=== PATIENT | female | born 1935 | race Caucasian/White ===

== ENCOUNTER 2017-02-12 08:32 | Inpatient (IN) | payer OTHER, MEDICARE ==
[2017-01-16 13:58] VITALS: BMI 35.0
--- NOTE | 2017-01-16 14:27 | PAT Medication Instructions ---
Service Date Jan 16, 2017. Current Home Medication List Amlodipine (Norvasc), 2.5 MG PO QPM Cholecalciferol (Vitamin D3), 1 TAB PO QAM Cyanocobalamin (Vitamin B12), 500 MCG PO QAM Famotidine (Pepcid), 20 MG PO DAILY PRN for Indigestion Losartan Potassium & Hydrochlo (Losartan Potassium/Hydroc), 1 TAB PO QAM Potassium Chloride (Micro-K Ext Rel), 10 MEQ PO QAM Probiotic Product (Trubiotics), 1 CAP PO QAM Verapamil (Verelan Pm), 300 MG PO QAM Zinc Sulfate (Zinc Sulfate), 220 MG PO QAM [Oxy-Trol Patch], 1 PATCH TOP WK Medication Instructions For Your Scheduled Surgery - Continue as directed: [Oxy-Trol Patch], 1 PATCH TOP WK - Hold the following medications the morning of surgery: Losartan Potassium & Hydrochlo (Losartan Potassium/Hydroc), 1 TAB PO QAM Cholecalciferol (Vitamin D3), 1 TAB PO QAM Cyanocobalamin (Vitamin B12), 500 MCG PO QAM Potassium Chloride (Micro-K Ext Rel), 10 MEQ PO QAM Probiotic Product (Trubiotics), 1 CAP PO QAM Zinc Sulfate (Zinc Sulfate), 220 MG PO QAM - Take the following medications the morning of surgery with a sip of water OTHERWISE NOTHING TO EAT OR DRINK AFTER MIDNIGHT: Famotidine (Pepcid), 20 MG PO DAILY PRN for Indigestion Verapamil (Verelan Pm), 300 MG PO QAM - Take the following medications as scheduled the night before surgery: Amlodipine (Norvasc), 2.5 MG PO QPM If you have any questions please call us at [phone] or [phone] or [phone]
[2017-01-16 15:16] LABS: BASO % 0.2 %; BASO ABS # 0.01 K/uL (0-0.2); COMPLETE YES; EOS % 1.5 %; HEMATOCRIT 40.9 % (37-47); IG% 0.2 %; LYMPH % 23.1 %; LYMPH ABS # 1.36 K/uL (1.2-3.4); MEAN CELL VOLUME 85.7 fL (80-100); MEAN CORPUSCULAR HEMOGLOBIN 30.2 pg (25-34); MEAN CORPUSCULAR HGB CONC 35.2 g/dl (32-36); MEAN PLATELET VOLUME 9.3 fL (7.4-10.4); PLATELET COUNT 251 K/uL (130-400); RED BLOOD COUNT 4.77 M/uL (4.2-5.4)
[2017-01-16 15:28] LABS: CALCIUM 9.8 mg/dl (8.5-10.1); CREATININE 0.7 mg/dl (0.60-1.20); POTASSIUM 4.1 mmol/L (3.5-5.1)
--- NOTE | 2017-01-16 15:29 | DIAGNOSTIC IMAGING REPORT ---
CHEST 2 VIEWS ROUTINE CLINICAL HISTORY: Preoperative chest COMPARISON STUDY: 11/01/2013 FINDINGS: The heart is mildly enlarged. There is aortic tortuosity. There is no failure. There is no focal pulmonary consolidation. There are no pleural effusions. There are postsurgical changes of a reverse right shoulder arthroplasty[ IMPRESSION: No active disease in the chest. Electronically signed by: Flaco Ann M.D. 01/16/2017 3:27 PM Dictated Date/Time: 01/16/2017 3:26 PM
[2017-01-16 15:37] LABS: URINE APPEARANCE CLEAR (CLEAR); URINE BILIRUBIN NEG (NEG); URINE COLOR YELLOW; URINE NITRITE POS (NEG); URINE SPECIFIC GRAVITY 1.014 (1.000-1.030); UROBILINOGEN NEG (NEG)
[2017-01-16 15:39] LABS: MANUAL MICROSCOPIC REQUIRED? NO; REVIEW REQ? NO
[2017-01-16 15:45] LABS: PARTIAL THROMBOPLASTIN RATIO 1.2; PROTHROMBIN TIME (PATIENT) 10.4 SECONDS (9.0-12.0)
[2017-01-17 05:53] LABS: ESTIMATED AVERAGE GLUCOSE 108 mg/dl; HA1C FLAG Normal (Normal)
--- NOTE | 2017-02-11 13:10 | HISTORY & PHYSICAL EXAMINATION ---
DATE OF ADMISSION: 02/12/2017 CHIEF COMPLAINT: Right knee pain. HISTORY OF PRESENT ILLNESS: The patient is an 81-year-old female with known osteoarthritis about her right knee. She had a successful left total knee arthroplasty approximately 1 year ago by an outside physician. She has had previous corticosteroid as well as viscosupplementation injections in the right knee. Due to ongoing pain and disability, she now desires to proceed with right total knee arthroplasty. PAST MEDICAL HISTORY: Hypertension, osteoarthritis, colon cancer, acid reflux. PAST SURGICAL HISTORY: Gallstone, cataracts bilaterally, partial colectomy, right thumb, left knee replacement as above. MEDICATIONS: Losartan/HCTZ 100/12.5 daily, verapamil ER 300 mg daily, potassium chloride ER 10 mEq daily, amlodipine besylate 2.5 mg at bedtime, TruBiotics once daily, zinc 50 mg daily, vitamin D3 1000 International Units daily, vitamin B12 500 mg daily, Oxytrol patch once weekly. ALLERGIES: No known drug allergies. SOCIAL HISTORY AND REVIEW OF SYSTEMS: Noncontributory. PHYSICAL EXAMINATION: GENERAL: A well-nourished, well-developed elderly female who appears her stated age. HEENT: Normocephalic, atraumatic, extraocular movements intact, oropharynx pink and moist. NECK: Supple without adenopathy. LUNGS: Clear to auscultation bilaterally. HEART: Regular rate and rhythm. ABDOMEN: Soft, nontender, nondistended. EXTREMITIES: Upper extremities within normal limits. The right knee has a varus alignment. Her range of motion is from 0-125 degrees. X-RAYS: X-rays were reviewed. She has a varus aligned knee. She has [id number] arthritis of the medial compartment with complete loss of the joint space. The left knee demonstrates a well-fixed, well-aligned total knee. ASSESSMENT: Right knee degenerative joint disease. PLAN: Risks versus benefits were discussed. Consent was obtained. The patient's primary care physician is Shine Selby PA-C, from [facility] in [place], [place]. Her chute builder is Dr. Salcedo from [facility]. We will proceed with right total knee arthroplasty upon preoperative workup and medical clearance.
[~2017-02-12] VITALS: Ht 154.9 cm; Wt 82.9 kg
[2017-02-12] VITALS (8 sets, daily range): BP systolic 102–162; BP diastolic 65–91; PULSE 62–81; TEMP 36.4–36.8; O2SAT 93–100; Ht 154.9 cm; Wt 82.9 kg
[~2017-02-12 08:32] MED LIST: ACETAMINOPHEN 500 MG TAB PO SCH; AMLO2.5T PO; BUPIVACAINE 0.25% 30 ML VIAL ONE; BUPIVACAINE 0.5 % 5 MG/1 ML PF 10ML VIAL ONE; CEFAZOLIN 2000 MG/60 ML D5W 60 ML IV SCH; CHOL1000 PO; CYAN100020 PO; CeleBREX 200 MG CAP PO SCH; DEXAMETHASONE 4 MG TAB PO SCH; FAMO20TA11 PO; FAMOTIDINE 20 MG TAB PO SCH; GABAPENTIN 300 MG CAP PO SCH; LACTATED RINGER'S 1000ML 1,000 ML IV SCH; LACTATED RINGER'S 1000ML 500 ML IV ONE; LACTATED RINGER'S 1000ML IV SCH; LOSA50TA36 PO; METOCLOPRAMIDE HCL 10 MG TAB PO SCH; OXYBUTYNIN TOP; POTA10CA28 PO; PROB1CAP27 PO; ROPIVACAINE 5MG/ML 30 ML 150 MG, BUPIVACAINE/EPINEPHR 0.5% MPF 30 ML, KETOROLAC TROMETH... INFIL SCH; VERA1CAP7 PO; ZINC1CAP PO
[2017-02-12] MEDS ORDERED: MIDAZOLAM HCL 1 MG/ML 2ML VIAL ONE (09:17)
[2017-02-12] MEDS ORDERED: FENTANYL CITRATE INJ 50 MCG/1 ML 2 ML VIAL ONE (09:17)
--- NOTE | 2017-02-12 09:23 | History & Physical Bridge Note ---
H&P Re-Evaluation Bridge Note: I have examined the patient, reviewed the History & Physical and in the interval since the performance of the History & Physical I have noted the following changes of clinical significance: No changes noted
[2017-02-12] MEDS: TRANEXAMIC ACID INJ 1,000 MG in SODIUM CHLORIDE 0.9% 100ML 100 ML IV SCH ×2 (09:55→14:10)
--- NOTE | 2017-02-12 10:03 | OPERATIVE REPORT ---
DATE OF OPERATION: 02/12/2017 PREOPERATIVE DIAGNOSIS: Bilateral knee arthritis. POSTOPERATIVE DIAGNOSIS: Bilateral knee arthritis. PROCEDURES PERFORMED: Left knee injection and right total knee arthroplasty with femoral size 4, tibial size 3, tibial insert 11, and patella size 32. SURGEON: Dr. Pascual. DIRECTOR EXPERIMENTAL MEDICINE: Nahun Mulligan PA-C ANESTHESIA: Spinal. COMPLICATIONS: None. OPERATION AND FINDINGS: Following induction of adequate spinal anesthesia, the patient's left leg was prepped with Betadine prep and solution and was injected intraarticularly with 3 mL of Depo-Medrol and 3 mL of Marcaine. Following induction of spinal anesthesia, the patient's right leg was prepped and draped in the usual sterile manner. Limb was exsanguinated with an Esmarch bandage and tourniquet was inflated to 350 mmHg. A longitudinal incision was made anteriorly. Subcutaneous tissue was sharply dissected. Electrocautery was used for hemostasis. Prepatellar bursa was incised and median parapatellar incision was performed. Patella was everted and the knee was flexed. Fat pad was removed to aid in visualization and the anterior and posterior cruciate ligaments were removed. The medial face of the tibia was cleared of soft tissue first with a Bovie and a Man elevator. This tissue was retracted posteriorly using a blunt Hohmann. A Wilks retractor was used to expose the synovium above on the anterior aspect of the femur and this was removed down to bone. The PSI guide was placed on the distal femur and two pins were placed anteriorly and kept in position and two additional pins were placed distally and removed. The distal femoral cutting block was placed in position and the distal femoral cut was used in the +0 setting. Next, the cutting block was removed and the spinal block was placed in the distal end of the femur. Care was taken to ensure appropriate external rotation and feeler gauge was used to ensure no notching would occur. The femoral block was centered on the distal femur and in the medial and lateral direction and was fixed using two bone screws. The gold pins were then removed. The oscillating saw was used to create the bone cuts and the distal femoral cutting block was removed and the reciprocating saw was used to further trim the femoral cuts as well as a deep in the area for the trochlear groove. Next, posterior condyle remnants were removed. Following this, a meniscal clamp and knife were utilized to remove the anterior portion of both medial and lateral meniscus. The proximal tibia PSI guide was placed into position and the proximal tibial cutting guide was screwed into position. The extra medullary alignment guide was utilized to ensure appropriate alignment. The proximal tibia was cut and the proximal tibial cutting block was removed and this bone fragment was removed. The appropriate guide was used to perform the notch cut on the distal femur and a lamina milk sampler and a cochlear knife were utilized to finish both medial and lateral meniscectomies to remove any remnants of the posterior or anterior cruciate ligaments. Following this, the distal femoral component was impacted into position and blunt Anirudh was used to sublux the tibia anteriorly. The proximal tibia was sized and a 3 tibial tray was chosen as the size to be used. This was put into position and appropriate external rotation and a double check with extramedullary alignment guide was performed. The canal for the tibial stem was prepared first with a 17 mm drill and then the punch and a mallet and the trial tibial poly was placed. A 11 was chosen the size to be used. It was brought to extension and the patella was prepared with the patellar reamer. A 32 component was chosen the size to be used. The trial component was placed and knee was taken through a full range of motion and there was found to be no lateral subluxation of the tibia. No lateral release was required. The trials were all removed. The final components were obtained and assembled. Cement was mixed. The knee was thoroughly irrigated and the ortho mix was injected about the knee joint. The final components were cemented into position. After thoroughly suctioning and drying the bone ends, all excess cement was removed. The knee was held in extension while the cement hardened. The wound was irrigated and closed over a Hemovac drain. #1 Vicryl was used to close the extensor mechanism. Subcutaneous tissues closed using 0 Dexon. Skin was closed with iesha. Sterile dressing of Adaptic, 4 x 4's, sterile Webril, and Star was applied. The patient tolerated the procedure well. Due to the complex nature of the procedure, the entire surgery was performed with the operational assistance of Nahun Mulligan PA-C. The tmd teacher assistant, under direct supervision, was involved in the actual performance of all aspects of the surgical procedure including hemostasis, tissue retraction and incision, instrument management, patient positioning, and wound closure. I attest to the content of the Intraoperative Record and any orders documented therein. Any exceptio ns are noted below.
[2017-02-12] MEDS ORDERED: ORTHO JOINT ANESTHETIC ONE (10:07)
[2017-02-12] MEDS ORDERED: BACITRACIN 50000 UNIT VIAL ONE (10:08)
[2017-02-12] MEDS ORDERED: POVIDONE-IODINE OP SOLN 30 ML BTL ONE (10:08)
[2017-02-12] MEDS ORDERED: KETOROLAC TROMETHAMINE 30 MG/ML VIAL IV. PRN (10:45)
[2017-02-12] MEDS ORDERED: EpHEDrine SULFATE INJ 50 MG/ML AMP IV PRN (10:45)
[2017-02-12] MEDS ORDERED: ATROPINE SULFATE 0.1 MG/ML 5ML SYR IV PRN (10:45)
[2017-02-12] MEDS ORDERED: PHENYLEPHRINE 100MCG/ML 5ML SYR IV PRN (10:45)
[2017-02-12] MEDS ORDERED: ONDANSETRON INJ 2 MG/ML 2 ML VIAL IV PRN ×2 (10:45→12:30)
[2017-02-12] MEDS ORDERED: HYDROmorphone INJ 2 MG/ML SYR/VIAL IV PRN (10:45)
[2017-02-12] MEDS ORDERED: PROPOFOL IV EMULSION 10 MG/ML 20 ML VIAL IV ONE (11:52)
[2017-02-12] MEDS ORDERED: LIDOCAINE HCL 2% 2 ML VIAL (20MG/ML) ONE (11:52)
--- NOTE | 2017-02-12 11:54 | [facility] Post Operative Brief Note ---
Immediate Operative Summary Operative Date February 12, 2017. Pre-Operative Diagnosis DEGENERATIVE JOINT DISEASE Post-Operative Diagnosis SAME PREOP Procedure(s) Performed RIGHT TOTAL KNEE ARTHROPLASTY Surgeon DR. Irena FUNES Contract Negotiator Surgeon(s) Salvatore LUZ PAC Estimated Blood Loss 10cc Findings severe OA Specimens RIGHT KNEE BONE AND TISSUE Disposition Recovery Room / PACU
[2017-02-12] MEDS ORDERED: MoRPHine SULFATE 2 MG/ML CARP IV PRN (12:30)
[2017-02-12] MEDS ORDERED: ALUMINUM/MAGNESIUM/SIMETH (MAALOX MAX) 30 ML UDC PO PRN (12:30)
[2017-02-12] MEDS ORDERED: MAGNESIUM HYDROXIDE SUSP 30 ML UDC PO PRN (12:30)
[2017-02-12] MEDS ORDERED: ZOLPIDEM TARTRATE 5 MG TAB PO PRN (12:30)
[2017-02-12] MEDS ORDERED: METOCLOPRAMIDE HCL INJ 5 MG/ML 2 ML VIAL IV PRN (12:30)
--- NOTE | 2017-02-12 12:33 | OPERATIVE REPORT ---
DATE OF OPERATION: 02/12/2017 PREOPERATIVE DIAGNOSIS: Osteoarthritis right knee. POSTOPERATIVE DIAGNOSIS: Osteoarthritis right knee. PROCEDURE: Right total knee arthroplasty with femoral size 3, tibia size 3, tibial poly 9 and patella size 33. SURGEON: Dr. Pascual. TRIM DIE MAKER: Nahun Mulligan PA-C ANESTHESIA: Spinal. COMPLICATIONS: None. OPERATION AND FINDINGS: Following induction of spinal anesthesia, the patient's right leg was prepped and draped in the usual sterile manner. Limb was exsanguinated with an Esmarch bandage and tourniquet was inflated to 350 mmHg. A longitudinal incision was made anteriorly. Subcutaneous tissue was sharply dissected. Electrocautery was used for hemostasis. Prepatellar bursa was incised and median parapatellar incision was performed. Patella was everted and the knee was flexed. Fat pad was removed to aid in visualization and the anterior and posterior cruciate ligaments were removed. The medial face of the tibia was cleared of soft tissue first with a Bovie and a Man elevator. This tissue was retracted posteriorly using a blunt Hohmann. A Wilks retractor was used to expose the synovium above on the anterior aspect of the femur and this was removed down to bone. The PSI guide was placed on the distal femur and two pins were placed anteriorly and kept in position and two additional pins were placed distally and removed. The distal femoral cutting block was placed in position and the distal femoral cut was used in the +0 setting. Next, the cutting block was removed and the femur 3 block was placed in the distal end of the femur. Care was taken to ensure appropriate external rotation and feeler gauge was used to ensure no notching would occur. The femoral block was centered on the distal femur and in the medial and lateral direction and was fixed using two bone screws. The gold pins were then removed. The oscillating saw was used to create the bone cuts and the distal femoral cutting block was removed and the reciprocating saw was used to further trim the femoral cuts as well as a deep in the area for the trochlear groove. Next, posterior condyle remnants were removed. Following this, a meniscal clamp and knife were utilized to remove the anterior portion of both medial and lateral meniscus. The proximal tibia PSI guide was placed into position and the proximal tibial cutting guide was screwed into position. The extra medullary alignment guide was utilized to ensure appropriate alignment. The proximal tibia was cut and the proximal tibial cutting block was removed and this bone fragment was removed. The appropriate guide was used to perform the notch cut on the distal femur and a lamina athletic field custodian and a cochlear knife were utilized to finish both medial and lateral meniscectomies to remove any remnants of the posterior or anterior cruciate ligaments. Following this, the distal femoral component was impacted into position and blunt Anirudh was used to sublux the tibia anteriorly. The proximal tibia was sized and a 3 tibial tray was chosen as the size to be used. This was put into position and appropriate external rotation and a double check with extramedullary alignment guide was performed. The canal for the tibial stem was prepared first with a 17 mm drill and then the punch and a mallet and the trial tibial poly was placed. A 9 was chosen the size to be used. It was brought to extension and the patella was prepared with the patellar reamer. A 33 component was chosen the size to be used. The trial component was placed and knee was taken through a full range of motion and there was found to be no lateral subluxation of the tibia. No lateral release was required. The trials were all removed. The final components were obtained and assembled. Cement was mixed. The knee was thoroughly irrigated and the ortho mix was injected about the knee joint. The final components were cemented into position. After thoroughly suctioning and drying the bone ends, all excess cement was removed. The knee was held in extension while the cement hardened. The wound was irrigated and closed over a Hemovac drain. #1 Vicryl was used to close the extensor mechanism. Subcutaneous tissues closed using 0 Dexon. Skin was closed with iesha. Sterile dressing of Adaptic, 4 x 4's, sterile Webril, and Star was applied. The patient tolerated the procedure well. Due to the complex nature of the procedure, the entire surgery was performed with the operational assistance of Nahun Mulligan PA-C. The parts room assistant, under direct supervision, was involved in the actual performance of all aspects of the surgical procedure including hemostasis, tissue retraction and incision, instrument management, patient positioning, and wound closure. I attest to the content of the Intraoperative Record and any orders documented therein. Any exceptio ns are noted below.
--- NOTE | 2017-02-12 13:38 | DIAGNOSTIC IMAGING REPORT ---
RIGHT KNEE 1 OR 2 VIEWS ROUTINE CLINICAL HISTORY: Right knee osteoarthritis. COMPARISON: None FINDINGS: Alignment of the total right knee arthroplasty is anatomic. There is no fracture or unexpected opaque foreign body. Drains and skin iesha are present. IMPRESSION: Expected findings following total right knee arthroplasty. Electronically signed by: Gene Dooley M.D. 02/12/2017 1:37 PM Dictated Date/Time: 02/12/2017 1:37 PM
--- NOTE | 2017-02-12 13:44 | Anesthesiology Progress Note ---
Anesthesia Post Op Note Date & Time February 12, 2017 at 13:44 Vital Signs Pain Intensity: 0 Vital Signs Past 12 Hours Date Time Temp Pulse Resp B/P Pulse Ox O2 Delivery O2 Flow Rate FiO2 02/12/17 13:10 36.4 66 20 108/75 96 Nasal Cannula 2 02/12/17 13:00 65 20 125/68 100 Nasal Cannula 2 02/12/17 12:50 64 20 126/71 100 Nasal Cannula 2 02/12/17 12:40 64 20 119/70 100 Nasal Cannula 4 02/12/17 12:30 71 20 124/65 100 Mask 10 02/12/17 12:21 36.3 64 20 126/67 97 Mask 10 02/12/17 09:10 36.4 79 18 140/91 97 Room Air Notes Mental Status: alert / awake / arousable, participated in evaluation Pt Amnestic to Procedure: Yes Nausea / Vomiting: adequately controlled Pain: adequately controlled Airway Patency, RR, SpO2: stable & adequate BP & HR: stable & adequate Hydration State: stable & adequate Anesthetic Complications: no major complications apparent
--- NOTE | 2017-02-12 14:35 | Medical Consult ---
Consultation Date of Consultation: February 12, 2017. Attending Physician: Adeel Pascual M.D. Reason for Consultation: Medical management History of Present Illness 81 y/o female, with PMHx of HTN, osteoarthritis, colon cancer, and GERD, s/p Right total knee arthroplasty by Dr. Pascual on 02/13. Patient states she is currently feeling well. Her pain is well controlled. No BM/flatus postop. She is starting to feel hungry. Patient denies any fever, chills, sweats, lightheadedness, dizziness, vision changes, CP, palpitations, edema, SOB, wheezing, cough, abdominal pain, nausea, vomiting, diarrhea, urinary symptoms, melena, numbness/tingling, weakness, muscle/joint pain, anxiety/depression, active bleeding, or new skin discoloration/changes. Past Medical/Surgical History PAST MEDICAL HISTORY: 1. Hypertension 2. Osteoarthritis 3. Colon cancer 4. GERD PAST SURGICAL HISTORY: 1. Gallstone 2. Cataracts 3. Bilaterally 4. Partial colectomy 5. Right thumb Social History Smoking Status: Never Smoker Alcohol Use: none Marital Status: Housing Status: lives with family Allergies Coded Allergies: No Known Allergies (Unverified , 02/12/17) Home Medications Reported Home Medications Medications Dose Route/Sig Max Daily Dose Days Date Category Dose Instructions Pepcid (Famotidine) 20 Mg Tab 20 Mg PO DAILY PRN 01/16/17 Reported [Oxy-Trol Patch] 1 Patch TOP WK 01/16/17 Reported Vitamin B12 (Cyanocobalamin) 1,000 Mcg Tab 500 Mcg PO QAM 01/16/17 Reported Vitamin D3 (Cholecalciferol) 1,000 Unit Tab 1 Tab PO QAM 90 01/16/17 Reported Zinc Sulfate 220 Mg Cap 220 Mg PO QAM 01/16/17 Reported Trubiotics (Probiotic Product) 1 Cap Cap 1 Cap PO QAM 01/16/17 Reported Norvasc (Amlodipine Besylate) 2.5 Mg Tab 2.5 Mg PO QPM 01/16/17 Reported Micro-K Ext Rel (Potassium Chloride) 10 Meq Capcr 10 Meq PO QAM 01/16/17 Reported Verelan Pm (Verapamil HCl) 300 Mg Ercap 300 Mg PO QAM 01/16/17 Reported Losartan Potassium/Hydroc (Losartan Potassium & Hydrochlo) 1 Tab Tab 1 Tab PO QAM 90 01/16/17 Reported DOSAGE 100/12.5MG Current Inpatient Medications Current Inpatient Medications Medications (Trade) Dose Ordered Sig/Gabriel Route Start Time Stop Time Status Last Admin Dose Admin Lactated Ringer's 1,000 ml @ 60 mls/hr [id number] IV 02/12/17 06:00 02/12/17 22:39 Cefazolin Sodium (Ancef 2000mg/60 ml D5W) 60 ml @ 100 mls/hr PREOP IV 02/12/17 06:00 02/12/17 18:00 02/12/17 10:29 100 MLS/HR Acetaminophen (Tylenol Tab) 1,000 mg PREOP PO 02/12/17 06:00 02/12/17 18:00 02/12/17 09:39 1,000 MG Celecoxib (CeleBREX CAP) 200 mg PREOP PO 02/12/17 06:00 02/12/17 18:00 02/12/17 09:38 200 MG Dexamethasone (Decadron Tab) 8 mg PREOP PO 02/12/17 06:00 02/12/17 18:00 02/12/17 09:37 8 MG Famotidine (Pepcid Tab) 20 mg PREOP PO 02/12/17 06:00 02/12/17 18:00 Gabapentin (Neurontin Cap) 300 mg PREOP PO 02/12/17 06:00 02/12/17 18:00 02/12/17 09:38 300 MG Metoclopramide HCl 10 mg 10 mg PREOP PO 02/12/17 06:00 02/12/17 18:00 02/12/17 09:38 10 MG Tranexamic Acid 1000 mg/Sodium Chloride 110 ml @ 660 mls/hr TODAY@06,0630 IV 02/12/17 06:00 02/12/17 18:00 02/12/17 09:55 660 MLS/HR Lactated Ringer's (Lr 1000ml) 1,000 ml @ 15 mls/hr Q24H IV 02/12/17 06:00 02/13/17 05:59 02/12/17 09:50 15 MLS/HR Ondansetron HCl (Zofran Inj) 4 mg ONE PRN IV 02/12/17 10:45 02/12/17 15:45 Atropine Sulfate (Atropine Sulfate 0.1MG/Ml Inj) 0.5 mg Q1M PRN IV 02/12/17 10:45 02/12/17 15:45 Ephedrine Sulfate (EpHEDrine SULFATE INJ) 5 mg Q5M PRN IV 02/12/17 10:45 02/12/17 15:45 Ketorolac Tromethamine (Toradol Inj) 15 mg ONE PRN IV. 02/12/17 10:45 02/12/17 15:45 Hydromorphone HCl (Dilaudid Inj) 0.25 mg Q5M PRN IV 02/12/17 10:45 02/12/17 15:45 Phenylephrine HCl 100 mcg 100 mcg Q5M PRN IV 02/12/17 10:45 02/12/17 15:45 Potassium Chloride/Dextrose/ Sod Cl 1,000 ml @ 100 mls/hr Q10H IV 02/12/17 12:22 02/13/17 12:21 UNV Cefazolin Sodium/ Dextrose (Ancef Iv/D5 50ml) 60 ml @ 100 mls/hr Q8H IV 02/12/17 18:00 02/13/17 02:35 UNV Ketorolac Tromethamine (Toradol Inj) 15 mg Q6H IV. 02/12/17 14:00 02/13/17 13:59 UNV Celecoxib (CeleBREX CAP) 200 mg BID PO 02/13/17 21:00 03/15/17 20:59 UNV Oxycodone HCl (Roxicodone Immediate Rel Tab) 1 TABLET FOR PAIN RATING... Q4H PRN PO 02/12/17 12:30 02/26/17 12:29 Oxycodone HCl (Oxycontin Tab) 10 mg Q12 PO 02/12/17 21:00 02/26/17 20:59 Morphine Sulfate (MoRPHine SULFATE INJ) For pain rating 1-3 give 2... Q2HWA PRN IV 02/12/17 12:30 02/26/17 12:29 UNV Acetaminophen (Tylenol Tab) 1,000 mg Q8H PO 02/12/17 14:00 03/14/17 13:59 UNV Magnesium Hydroxide (Milk Of Magnesia Susp) 30 ml Q6H PRN PO 02/12/17 12:30 03/14/17 12:29 Docusate Sodium (coLACE CAP) 100 mg BID PO 02/12/17 21:00 03/14/17 20:59 UNV Diphenhydramine HCl (Benadryl Cap) 25 mg Q8H PRN PO 02/12/17 12:30 03/14/17 12:29 Al Hydrox/Mg Hydrox/Simethicone (Maalox Max Susp) 15 ml Q4H PRN PO 02/12/17 12:30 03/14/17 12:29 Zolpidem Tartrate (Ambien Tab) 5 mg HSZ PRN PO 02/12/17 12:30 03/14/17 12:29 Multivitamins (Multivitamin Tab) 1 tab QAM PO 02/13/17 09:00 03/15/17 08:59 UNV Ondansetron HCl (Zofran Inj) 4 mg Q6H PRN IV 02/12/17 12:30 03/14/17 12:29 Metoclopramide HCl (Reglan Inj) 10 mg Q6H PRN IV 02/12/17 12:30 03/14/17 12:29 Ferrous Gluconate (Ferrous Gluconate Tab) 324 mg TIDM PO 02/12/17 17:45 03/14/17 17:59 UNV Pantoprazole Sodium 40 mg 40 mg QAM PO 02/13/17 09:00 03/15/17 08:59 UNV Dexamethasone Sodium Phosphate/ Syringe (Decadron Inj/ Syringe) 2.5 ml @ 1 mls/min TODAY@0730 IV 02/13/17 07:30 02/13/17 09:00 UNV Aspirin (Ecotrin Tab) 81 mg BID PO 02/12/17 21:00 03/14/17 20:59 UNV Amlodipine Besylate (Norvasc Tab) 2.5 mg QPM PO 02/12/17 21:00 03/14/17 20:59 UNV HCTZ/Losartan Potassium (Hyzaar 50-12.5 Tab) 1 tab QAM PO 02/13/17 09:00 03/15/17 08:59 UNV Zinc Sulfate (Zinc Sulfate Cap) 220 mg QAM PO 02/13/17 09:00 03/15/17 08:59 UNV Cyanocobalamin (Vitamin B-12 Tab) 500 mcg QAM PO 02/13/17 09:00 03/15/17 08:59 UNV Miscellaneous Information (Order Awaiting Action) 1 ea QS N/A 02/12/17 16:00 03/14/17 15:59 Physical Exam Date Time Temp Pulse Resp B/P Pulse Ox O2 Delivery O2 Flow Rate FiO2 02/12/17 13:30 99 Nasal Cannula 2.0 02/12/17 13:30 36.8 65 14 127/74 99 Nasal Cannula 2.0 02/12/17 13:30 99 Nasal Cannula 2.0 02/12/17 13:10 36.4 66 20 108/75 96 Nasal Cannula 2 02/12/17 13:00 65 20 125/68 100 Nasal Cannula 2 02/12/17 12:50 64 20 126/71 100 Nasal Cannula 2 02/12/17 12:40 64 20 119/70 100 Nasal Cannula 4 02/12/17 12:30 71 20 124/65 100 Mask 10 02/12/17 12:21 36.3 64 20 126/67 97 Mask 10 02/12/17 09:10 36.4 79 18 140/91 97 Room Air General Appearance: no apparent distress Head: normocephalic, atraumatic Eyes: normal inspection, PERRL ENT: normal ENT inspection Respiratory/Chest: lungs clear, no respiratory distress, no accessory muscle use Cardiovascular: regular rate, rhythm Abdomen/GI: normal bowel sounds, non tender, soft Back: normal inspection Extremities/Musculoskelatal: + pertinent finding (TEDs/SCDs on; LON bandage to RLE ) Neurologic/Psych: alert, normal mood/affect, oriented x 3 Skin: normal color, warm/dry, no rash Assessment & Plan 81 y/o female, with PMHx of HTN, osteoarthritis, colon cancer, and GERD, s/p Right total knee arthroplasty by Dr. Pascual on 02/13. - Surgical management, PT/OT, pain management, and DVT prophylaxis as per primary team - Follow CBC and PRP HTN: - Hold Losartan/HCTZ 100/12.5 daily pending PRP tomorrow AM - Continue Verapamil ER 300 mg daily, Potassium chloride ER 10 mEq daily, Amlodipine besylate 2.5 mg at bedtime GERD: Continue Pepcid GI Prophylaxis: Protonix, Maalox PRN, IV Zofran PRN, Colace and/or Milk of Mag PRN DVT prophylaxis: As per primary team Code Status: LEVEL I, FULL Dispo: Discharge as per primary team Thank you for this consultation. We will continue to follow. i personally examined pt and verified all mcmahan points lauren Stone PAC feeling OK - just a little bit of knee pain no other complaints vitals noted nad breathing unlabored no pallor or icterus a/p HTN - hold ARB as above until volume status clearly stabilized, otherwise as above
[2017-02-12] MEDS ORDERED: MoRPHine SULFATE 10 MG/ML CARP/VIAL IV PRN (14:45)
[2017-02-12] MEDS ORDERED: MoRPHine SULFATE 4 MG/ML 1 ML CARP\\VIAL IV PRN (14:45)
[2017-02-12] MEDS: KETOROLAC TROMETHAMINE 15 MG/ML VIAL IV. SCH ×2 (15:45→21:29)
[2017-02-12] MEDS: D5W AND 1/2NSS + 20MEQ KCL 1,000 ML IV SCH (15:45)
[2017-02-12] MEDS: OXYCODONE HCL IR 5 MG TAB (IMMEDIATE RELEASE) PO PRN (16:58)
[2017-02-12] MEDS: CEFAZOLIN IV 2,000 MG in DEXTROSE 5% 50ML 50 ML IV SCH (17:38)
[2017-02-12] MEDS: FERROUS GLUCONATE 324 MG TAB PO SCH (17:40)
[2017-02-12] MEDS: ACETAMINOPHEN 500 MG TAB PO SCH (17:41)
[2017-02-12] MEDS: ASPIRIN 81 MG ECTAB PO SCH (20:49)
[2017-02-12] MEDS: AMLODIPINE BESYLATE 5 MG TAB PO SCH (20:49)
[2017-02-12] MEDS: DOCUSATE SODIUM 100 MG CAP PO SCH (20:51)
[2017-02-12] MEDS ORDERED: OXYCODONE HCL 10 MG TABCR (OXYCONTIN) PO SCH (21:00)
[2017-02-13] MEDS: D5W AND 1/2NSS + 20MEQ KCL 1,000 ML IV SCH (00:50)
[2017-02-13] MEDS: OXYCODONE HCL IR 5 MG TAB (IMMEDIATE RELEASE) PO PRN (00:51)
[2017-02-13] MEDS: CEFAZOLIN IV 2,000 MG in DEXTROSE 5% 50ML 50 ML IV SCH (00:52)
[2017-02-13] MEDS: ACETAMINOPHEN 500 MG TAB PO SCH (00:52)
[2017-02-13] MEDS: KETOROLAC TROMETHAMINE 15 MG/ML VIAL IV. SCH ×2 (04:35→09:23)
[2017-02-13 06:51] VITALS: BP 153/81; PULSE 78; TEMP 36.7; O2SAT 94
[2017-02-13 07:13] LABS: MEAN CELL VOLUME 87.5 fL (80-100); MEAN CORPUSCULAR HEMOGLOBIN 29.4 pg (25-34); MEAN CORPUSCULAR HGB CONC 33.6 g/dl (32-36); MEAN PLATELET VOLUME 9.3 fL (7.4-10.4); PLATELET COUNT 209 K/uL (130-400); RED BLOOD COUNT 3.77 M/uL (4.2-5.4); WHITE BLOOD COUNT 15.89 K/uL (4.8-10.8)
[2017-02-13 07:18] LABS: PROTHROMBIN TIME (PATIENT) 10.5 SECONDS (9.0-12.0)
[2017-02-13] MEDS ORDERED: DEXAMETHASONE INJ 10 MG in SYRINGE 0 ML IV SCH (07:30)
[2017-02-13 07:47] LABS: BUN/CREATININE RATIO 30.3 (10-20); CALCIUM 8.4 mg/dl (8.5-10.1); CREATININE 0.75 mg/dl (0.60-1.20); POTASSIUM 4.1 mmol/L (3.5-5.1)
--- NOTE | 2017-02-13 08:05 | Orthopedic Progress Note ---
Orthopedic Progress Note Date of Service February 13, 2017. Subjective Post OP Day: 1 Reports: feeling well Objective N/V intact, dressing C/D/I (Hemovac d/c'd), toes mobile (questionable mild footdrop) Date Time Temp Pulse Resp B/P Pulse Ox O2 Delivery O2 Flow Rate FiO2 02/13/17 06:51 36.7 78 19 153/81 94 Room Air 02/13/17 00:30 Room Air 02/12/17 22:58 36.7 81 18 108/70 93 Room Air 02/12/17 19:33 36.7 76 18 162/70 96 Room Air 02/12/17 16:43 36.5 65 16 102/65 97 Nasal Cannula 2.0 02/12/17 15:33 Nasal Cannula 2.0 02/12/17 15:33 36.6 63 16 113/72 97 Nasal Cannula 2.0 02/12/17 14:30 65 16 131/82 100 Nasal Cannula 2.0 02/12/17 14:00 62 16 123/77 100 Nasal Cannula 2.0 02/12/17 13:30 99 Nasal Cannula 2.0 02/12/17 13:30 36.8 65 14 127/74 99 Nasal Cannula 2.0 02/12/17 13:30 99 Nasal Cannula 2.0 02/12/17 13:10 36.4 66 20 108/75 96 Nasal Cannula 2 02/12/17 13:00 65 20 125/68 100 Nasal Cannula 2 02/12/17 12:50 64 20 126/71 100 Nasal Cannula 2 02/12/17 12:40 64 20 119/70 100 Nasal Cannula 4 02/12/17 12:30 71 20 124/65 100 Mask 10 02/12/17 12:21 36.3 64 20 126/67 97 Mask 10 02/12/17 09:10 36.4 79 18 140/91 97 Room Air Laboratory Results 24 Hours: Test 02/13/17 06:24 Hematocrit 33.0 % Hemoglobin 11.1 g/dL Prothromb Time International Ratio 1.0 Prothrombin Time 10.5 SECONDS Assessment & Plan Assessment: 81 yo female stable POD #1 s/p right TKA Plan: 1. Med management 2. DVT prophylaxis- ASA, TEDs, SCDs 3. PT/OT 4. D/C planning- home w/ HH
[2017-02-13] MEDS: DOCUSATE SODIUM 100 MG CAP PO SCH ×2 (08:19→20:47)
[2017-02-13] MEDS: FERROUS GLUCONATE 324 MG TAB PO SCH ×3 (08:19→17:45)
[2017-02-13] MEDS: ASPIRIN 81 MG ECTAB PO SCH ×2 (08:20→20:47)
[2017-02-13] MEDS: MULTIVITAMIN TAB PO SCH (08:20)
[2017-02-13] MEDS: PANTOprazole SOD 40 MG TAB PO SCH (08:20)
[2017-02-13] MEDS: CYANOCOBALAMIN 500 MCG TAB (VIT B-12) PO SCH (08:20)
[2017-02-13] MEDS: ZINC SULFATE 220 MG CAP PO SCH (08:21)
--- NOTE | 2017-02-13 08:46 | Hospitalist Progress Note ---
Hospitalist Progress Note Date of Service February 13, 2017. (Tamra Stone ., PA-C) Subjective Pt evaluation today including: conversation w/ patient, physical exam, chart review, lab review, review of inpatient medication list Voiding: no voiding problems, no incontinence Patient states she is feeling well. Pain is well controlled. She tolerated her diet well last evening; eating breakfast while interviewing with no complaints. She has been up and ambulating without significant difficulty. +flatus postop. No BM postop; last BM was on 02/12 prior to procedure. +insomnia last night; not uncommon for patient. Patient denies any fever, chills, sweats, lightheadedness , dizziness, vision changes, CP, palpitations, edema, SOB, wheezing, cough, abdominal pain, nausea, vomiting, diarrhea, urinary symptoms, melena, numbness/ tingling, weakness, muscle/joint pain, anxiety/depression, active bleeding, or new skin discoloration/changes. (Tamra Stone ., PA-C) Medications Current Inpatient Medications Medications (Trade) Dose Ordered Sig/Gabriel Route Start Time Stop Time Status Last Admin Dose Admin Ketorolac Tromethamine (Toradol Inj) 15 mg Q6H IV. 02/12/17 16:00 02/13/17 15:59 02/13/17 04:35 15 MG Celecoxib (CeleBREX CAP) 200 mg BID PO 02/13/17 21:00 03/15/17 20:59 Future Hold Morphine Sulfate (MoRPHine SULFATE INJ) 2 mg Q2HWA PRN IV 02/12/17 12:30 02/26/17 12:29 Magnesium Hydroxide (Milk Of Magnesia Susp) 30 ml Q6H PRN PO 02/12/17 12:30 03/14/17 12:29 Docusate Sodium (coLACE CAP) 100 mg BID PO 02/12/17 21:00 03/14/17 20:59 02/13/17 08:19 100 MG Diphenhydramine HCl (Benadryl Cap) 25 mg Q8H PRN PO 02/12/17 12:30 03/14/17 12:29 Al Hydrox/Mg Hydrox/Simethicone (Maalox Max Susp) 15 ml Q4H PRN PO 02/12/17 12:30 03/14/17 12:29 Zolpidem Tartrate (Ambien Tab) 5 mg HSZ PRN PO 02/12/17 12:30 03/14/17 12:29 Multivitamins (Multivitamin Tab) 1 tab QAM PO 02/13/17 09:00 03/15/17 08:59 02/13/17 08:20 1 TAB Ondansetron HCl (Zofran Inj) 4 mg Q6H PRN IV 02/12/17 12:30 03/14/17 12:29 Metoclopramide HCl (Reglan Inj) 10 mg Q6H PRN IV 02/12/17 12:30 03/14/17 12:29 Ferrous Gluconate (Ferrous Gluconate Tab) 324 mg TIDM PO 02/12/17 17:45 03/14/17 17:59 02/13/17 08:19 324 MG Pantoprazole Sodium 40 mg 40 mg QAM PO 02/13/17 09:00 03/15/17 08:59 02/13/17 08:20 40 MG Dexamethasone Sodium Phosphate/ Syringe (Decadron Inj/ Syringe) 2.5 ml @ 1 mls/min TODAY@0730 IV 02/13/17 07:30 02/13/17 09:00 Aspirin (Ecotrin Tab) 81 mg BID PO 02/12/17 21:00 03/14/17 20:59 02/13/17 08:20 81 MG Amlodipine Besylate (Norvasc Tab) 2.5 mg QPM PO 02/12/17 21:00 03/14/17 20:59 02/12/17 20:49 2.5 MG Zinc Sulfate (Zinc Sulfate Cap) 220 mg QAM PO 02/13/17 09:00 03/15/17 08:59 02/13/17 08:21 220 MG Cyanocobalamin (Vitamin B-12 Tab) 500 mcg QAM PO 02/13/17 09:00 03/15/17 08:59 02/13/17 08:20 500 MCG Morphine Sulfate (MoRPHine SULFATE INJ) 4 mg Q2HWA PRN IV 02/12/17 14:45 02/26/17 14:44 Morphine Sulfate (MoRPHine SULFATE INJ) 10 mg Q2HWA PRN IV 02/12/17 14:45 02/26/17 14:44 Non-Formulary Medication (Non-Formulary Patient'S Own Med) 1 ea DAILY PO 02/13/17 09:00 03/15/17 08:59 02/13/17 08:22 1 EA Acetaminophen/ Hydrocodone Bitart (Irma 5/325 Tab) 1-2 tabs po q 4 prn pain Q4HWA PRN PO 02/13/17 08:15 02/27/17 08:14 (Tamra Stone, MAKEZNIE-C) Objective Vital Signs Date Time Temp Pulse Resp B/P Pulse Ox O2 Delivery O2 Flow Rate FiO2 02/13/17 06:51 36.7 78 19 153/81 94 Room Air 02/13/17 00:30 Room Air 02/12/17 22:58 36.7 81 18 108/70 93 Room Air 02/12/17 19:33 36.7 76 18 162/70 96 Room Air 02/12/17 16:43 36.5 65 16 102/65 97 Nasal Cannula 2.0 02/12/17 15:33 Nasal Cannula 2.0 02/12/17 15:33 36.6 63 16 113/72 97 Nasal Cannula 2.0 02/12/17 14:30 65 16 131/82 100 Nasal Cannula 2.0 02/12/17 14:00 62 16 123/77 100 Nasal Cannula 2.0 02/12/17 13:30 99 Nasal Cannula 2.0 02/12/17 13:30 36.8 65 14 127/74 99 Nasal Cannula 2.0 02/12/17 13:30 99 Nasal Cannula 2.0 02/12/17 13:10 36.4 66 20 108/75 96 Nasal Cannula 2 02/12/17 13:00 65 20 125/68 100 Nasal Cannula 2 02/12/17 12:50 64 20 126/71 100 Nasal Cannula 2 02/12/17 12:40 64 20 119/70 100 Nasal Cannula 4 02/12/17 12:30 71 20 124/65 100 Mask 10 02/12/17 12:21 36.3 64 20 126/67 97 Mask 10 02/12/17 09:10 36.4 79 18 140/91 97 Room Air (Tamra Stone, MAKENZIE-C) Physical Exam General Appearance: no apparent distress Eyes: normal inspection, PERRL ENT: hearing grossly normal Neck: supple Respiratory/Chest: lungs clear, no respiratory distress, no accessory muscle use Cardiovascular: regular rate, rhythm Abdomen: normal bowel sounds, non tender, soft Extremities: no calf tenderness, + pertinent finding (TEDs on; right extremity wrapped in LON bandage ) Neurologic/Psychiatric: alert, normal mood/affect, oriented x 3 Skin: normal color, warm/dry, no rash (Tamra Stone PA-C) Laboratory Results Last 24 Hours Test 02/13/17 06:24 White Blood Count 15.89 K/uL Red Blood Count 3.77 M/uL Hemoglobin 11.1 g/dL Hematocrit 33.0 % Mean Corpuscular Volume 87.5 fL Mean Corpuscular Hemoglobin 29.4 pg Mean Corpuscular Hemoglobin Concent 33.6 g/dl RDW Standard Deviation 44.5 fL RDW Coefficient of Variation 14.0 % Platelet Count 209 K/uL Mean Platelet Volume 9.3 fL Prothrombin Time 10.5 SECONDS Prothromb Time International Ratio 1.0 Sodium Level 135 mmol/L Potassium Level 4.1 mmol/L Chloride Level 103 mmol/L Carbon Dioxide Level 25 mmol/L Anion Gap 7.0 mmol/L Blood Urea Nitrogen 23 mg/dl Creatinine 0.75 mg/dl Est Creatinine Clear Calc Drug Dose 57.4 ml/min Estimated GFR () 86.6 Estimated GFR (Non- 74.8 BUN/Creatinine Ratio 30.3 Random Glucose 133 mg/dl Calcium Level 8.4 mg/dl (Tamra Stone PA-C) Assessment and Plan 81 y/o female, with PMHx of HTN, osteoarthritis, colon cancer, and GERD, s/p Right total knee arthroplasty by Dr. Pascual on 02/13. - Surgical management, PT/OT, pain management, and DVT prophylaxis as per primary team - Encouraged use of incentive spirometer HTN: - Resume Losartan/HCTZ 100/12.5 daily - Continue Verapamil ER 300 mg daily, Potassium chloride ER 10 mEq daily, Amlodipine besylate 2.5 mg at bedtime Insomnia: Ambien 5 mg PRN HS GERD: Continue Pepcid GI Prophylaxis: Protonix, Maalox PRN, IV Zofran PRN, Colace and/or Milk of Mag PRN DVT prophylaxis: As per primary team Code Status: LEVEL I, FULL Dispo: Discharge as per primary team Thank you for this consultation. We will continue to follow. (Tamra Stone PA-C) PA Physician Supervision Note: I interviewed and examined the patient. Discussed with Tamra FOSTER and agree with findings and plan as documented in the note. Any exceptions or clarifications are listed here: None PT doing well after right TKA vitals stable on multiple blood pressure medications pain control is very good anticipate early discharge, continue outpt meds for bp Documented By: Alan Gomez (Alan Gomez M.D.)
--- NOTE | 2017-02-13 08:56 | Anesthesiology Progress Note ---
Anesthesia Post Op Note Date & Time February 13, 2017 at 08:56 Vital Signs Vital Signs Past 12 Hours Date Time Temp Pulse Resp B/P Pulse Ox O2 Delivery O2 Flow Rate FiO2 02/13/17 06:51 36.7 78 19 153/81 94 Room Air 02/13/17 00:30 Room Air 02/12/17 22:58 36.7 81 18 108/70 93 Room Air Notes Mental Status: alert / awake / arousable, participated in evaluation Pt Amnestic to Procedure: Yes Nausea / Vomiting: adequately controlled Pain: adequately controlled Airway Patency, RR, SpO2: stable & adequate BP & HR: stable & adequate Hydration State: stable & adequate Neuraxial Anesthesia: sensory block resolved Anesthetic Complications: no major complications apparent
[2017-02-13] MEDS ORDERED: VERAPAMIL 300 MG PO SCH ×3 (09:00)
[2017-02-13] MEDS ORDERED: LOSARTAN/HCTZ 50-12.5 EA TAB PO SCH (09:00)
[2017-02-13] MEDS: LOSARTAN/HCTZ 50-12.5 EA TAB PO SCH (09:23)
[2017-02-13] MEDS: HYDROCODONE/ACETAMOPHEN 5/325MG TAB PO PRN ×3 (09:26→23:31)
[2017-02-13 14:18] VITALS: BP 123/72; PULSE 69
[2017-02-13 14:53] VITALS: BP 123/68; PULSE 69; TEMP 36.7; O2SAT 94
--- NOTE | 2017-02-13 20:30 | DIAGNOSTIC IMAGING REPORT ---
RIGHT KNEE 3 VIEWS CLINICAL HISTORY: Right knee pain COMPARISON: 02/12/2017 DISCUSSION: There are postsurgical changes of a total right knee arthroplasty and patellar resurfacing. There are no acute fractures. There are small joint effusion. There is no dislocation. IMPRESSION: 1. Postsurgical changes of a total right knee arthroplasty 2. No acute fractures 3. Small joint effusion Electronically signed by: Flaco Ann M.D. 02/13/2017 8:28 PM Dictated Date/Time: 02/13/2017 8:28 PM
[2017-02-13 20:50] VITALS: BP 142/76; PULSE 67
[2017-02-13] MEDS: AMLODIPINE BESYLATE 5 MG TAB PO SCH (20:51)
[2017-02-13] MEDS ORDERED: CeleBREX 200 MG CAP PO SCH (21:00)
[2017-02-13 23:07] VITALS: BP 123/74; PULSE 71; TEMP 36.8; O2SAT 94
[2017-02-14 06:49] VITALS: BP 154/82; PULSE 74; TEMP 36.8; O2SAT 95
[2017-02-14] MEDS: CYANOCOBALAMIN 500 MCG TAB (VIT B-12) PO SCH (07:43)
[2017-02-14] MEDS: ZINC SULFATE 220 MG CAP PO SCH (07:43)
[2017-02-14] MEDS: HYDROCODONE/ACETAMOPHEN 5/325MG TAB PO PRN ×2 (07:43→10:47)
[2017-02-14] MEDS: LOSARTAN/HCTZ 50-12.5 EA TAB PO SCH (07:44)
[2017-02-14] MEDS: FERROUS GLUCONATE 324 MG TAB PO SCH (07:45)
[2017-02-14] MEDS: PANTOprazole SOD 40 MG TAB PO SCH (07:45)
[2017-02-14] MEDS: MULTIVITAMIN TAB PO SCH (07:45)
[2017-02-14 08:02] VITALS: BP 163/80; PULSE 74; TEMP 36.8; O2SAT 95
--- NOTE | 2017-02-14 08:11 | Orthopedic Progress Note ---
Orthopedic Progress Note Date of Service February 14, 2017. Subjective Post OP Day: 2 Reports: feeling well, pain controlled w PO medications, Denies: SOB, calf pain , chest pain, complaints, light headedness, nausea / vomiting Additional Notes: Patient states she is feeling sore this morning after doing PT yesterday. She will try to do her best during PT this morning. Objective calves soft nontender, N/V intact, dressing C/D/I, A&O x3, toes mobile Date Time Temp Pulse Resp B/P Pulse Ox O2 Delivery O2 Flow Rate FiO2 02/14/17 08:02 36.8 74 18 163/80 95 Room Air 02/14/17 06:49 36.8 74 18 154/82 95 Room Air 02/13/17 23:25 Room Air 02/13/17 23:07 36.8 71 20 123/74 94 Room Air 02/13/17 20:50 67 142/76 02/13/17 15:30 Room Air 02/13/17 14:53 36.7 69 16 123/68 94 Room Air 02/13/17 14:18 69 123/72 Assessment & Plan Assessment: 81 yo female stable POD #2 s/p right TKA Plan: 1. Med management 2. DVT prophylaxis- ASA, TEDs, SCDs 3. PT/OT 4. D/C planning- home w/ HH Inhouse Planning Pain Management: Celebrex, [place] DVT Prophylaxis: ASA Discharge Planning Discharge Planning: home with home health Pain Management: [place] DVT Prophylaxis: ASA Therapy: Physical Therapy
[2017-02-14] MEDS ORDERED: HYDR-5688 PO (08:14)
[2017-02-14] MEDS ORDERED: ASPEC81 PO (08:14)
--- NOTE | 2017-02-14 08:18 | Discharge Instructions ---
Discharge Instructions Date of Service February 14, 2017. Admission Reason for Admission: Right Knee Osteoarthritis Discharge Discharge Diagnosis / Problem: S/P Right TKA Discharge Goals Goal(s): Decrease discomfort, Improve function Activity Recommendations Activity Limitations: per Instructions/Follow-up section . Instructions / Follow-Up Instructions / Follow-Up ACTIVITY RECOMMENDATIONS: SELF CARE INSTRUCTIONS AFTER TOTAL KNEE REPLACEMENT A. You may need to continue a physical therapy program after discharge from the hospital. There are several options available to you. Your doctor will assist you in selecting the best one for you. 1. An out-patient facility 2 to 3 times a week for therapy or home therapy. 2. Continue working on all exercises taught to you in the hospital. Your goals should be to increase bending of your knee to 90 degrees and beyond and to fully straighten your knee. B. You may progress at your own pace from walking with a walker or crutches to a cane; then to no assistive devices. C. Make walking a part of your daily routine. Be up as much as comfortable with rest periods throughout the day. Rest with leg elevation is very important. Use the ice wrap frequently for the first 3-4 weeks. D. There are no restrictions on activities. You may ride in a car, shop, participate in material control clerk and all social activities. E. Wear the long elastic stockings (STAR hose) 20 hours a day for 2 weeks after surgery. They can be removed several times a day for laundering and for a bath. F. You may shower, no tub baths until cleared by your doctor. SPECIAL CARE INSTRUCTIONS: VERY IMPORTANT TO READ AND REVIEW A. There are a few signs you need to watch for after you are home. Call [facility] if you notice any of the followin. Increased severe knee pain. Some pain is expected especially when you exercise. 2. Increased swelling in your leg or knee; pain or swelling of the calf muscle in either lower leg. 3. Any fluid drainage from the incision. 4. Shortness of breath or chest pain. B. Please call [facility] at if you have any concerns or questions about your operation or recovery. The doctor or his nurse will return your call promptly. C. You must take antibiotics before dental work, bladder, bowel or other surgery. Your doctor will provide you with a permanent care to carry describing this precaution. IMPORTANT: * REMEMBER TO TAKE ASPIRIN, 81 MG, TWICE DAILY FOR 4 WEEKS UNLESS OTHERWISE DIRECTED. THIS IS YOUR BLOOD THINNER. * HIGH RISK PATIENTS MAY BE PRESCRIBED A STRONGER BLOOD THINNER. THIS WILL BE PROVIDED AT DISCHARGE. * CALL IF INCREASED PAIN, REDNESS, DRAINAGE OR FEVER GREATER THAT 101. * WEAR STAR HOSE 20 HOURS PER DAY FOR 2 WEEKS. * YOU MAY HAVE A LARGE BAND-AID LIKE DRESSING (SILVERON). THIS WILL REMAIN ON YOUR INCISION FOR 7 DAYS, THEN CAN BE REMOVED. IF INCISION IS LEAKING THROUGH DRESSING, CALL THE OFFICE . FOLLOW UP VISIT: If appointment is not already scheduled: Please call [facility] to make a follow-up appointment for 2 weeks after your surgery at . Current Hospital Diet Patient's current hospital diet: Regular Diet Discharge Diet Recommended Diet: Regular Diet Procedures Procedures Performed: RIGHT TOTAL KNEE ARTHROPLASTY Pending Studies Studies pending at discharge: no Laboratory Results Hemoglobin A1c Test 01/16/17 14:42 Range/Units Estimated Average Glucose 108 mg/dl Hemoglobin A1c 5.4 4.5-5.6 % Medical Emergencies . Who to Call and When: Medical Emergencies: If at any time you feel your situation is an emergency, please call 911 immediately. . Non-Emergent Contact Non-Emergency issues call your: Surgeon Call Non-Emergent contact if: temperature is above 101.5, your pain is worsening, wound has increased drainage, wound has increased redness . "Provider Documentation" section prepared by Klever Esparza. . VTE Core Measure Inpt VTE Proph given/why not?: Other Anticoagulation (ASA 81mg BID) [place] Drug Monitoring Program Search Results: patient reviewed within database, no issues identified
[2017-02-14] MEDS: DOCUSATE SODIUM 100 MG CAP PO SCH (08:23)
[2017-02-14] MEDS: ASPIRIN 81 MG ECTAB PO SCH (08:23)
[2017-02-14] MEDS ORDERED: VERAPAMIL 300 MG PO SCH (09:00)
[2017-02-14 09:18] VITALS: O2SAT 95
[2017-02-14 09:45] VITALS: TEMP 36.8; O2SAT 95
[2017-02-14 09:51] VITALS: BP 142/78; PULSE 72
--- NOTE | 2017-02-25 16:34 | DISCHARGE SUMMARY ---
CHIEF COMPLAINT: Right knee pain. Please see complete history and physical examination. HOSPITAL COURSE: The patient underwent right total knee arthroplasty without complication. She tolerated the procedure well and was discharged to recovery room in stable condition. Her postop course was relatively uneventful. Her postoperative pain was reasonably well controlled with a combination of spinal anesthesia, an adductor canal block, intraoperative joint injection, IV, and oral pain medications. She was started on aspirin for DVT prophylaxis. She also utilized STAR stockings and SCDs for additional prophylaxis. Her H\T\H was stable and did not require transfusion. She did have a mild footdrop on postoperative day #1, which resolved prior to discharge. Her surgical drain was discontinued on postoperative day #1, her surgical dressing will remain in place for approximately 7 days postoperative. She tolerated postoperative physical therapy reasonably well where she was bending her knee and ambulating appropriately. She was discharged home on postop day #2. She will continue her physical therapy at home. She will continue her aspirin for DVT prophylaxis and follow up in our office in approximately 10-14 days for her initial postop evaluation.
== END 2017-02-14 11:09 | disposition home health service (06) | DRG 470 ==
LOC: ENRESERVDT → ENRESERVTM → C.ACU 08:32 → C.3E 09:02
PROC: 3E0U33Z Introduction of Anti-inflammatory into Joints, Percutaneous Approach (ICD-10-PCS; principal; 2017-02-12 11:00)
PROC: 0SRC0J9 Replacement of Right Knee Joint with Synthetic Substitute, Cemented, Open Approach (ICD-10-PCS; principal; 2017-02-12 11:00)
PROC: 3E0U3BZ Introduction of Anesthetic Agent into Joints, Percutaneous Approach (ICD-10-PCS; principal; 2017-02-12 11:00)
DX: M17.0 Bilateral primary osteoarthritis of knee (principal); I10 Essential (primary) hypertension; K21.9 Gastro-esophageal reflux disease without esophagitis; E66.9 Obesity, unspecified; I25.10 Atherosclerotic heart disease of native coronary artery without angina pectoris; G47.33 Obstructive sleep apnea (adult) (pediatric); I34.0 Nonrheumatic mitral (valve) insufficiency; Z96.652 Presence of left artificial knee joint; Z68.34 Body mass index [BMI] 34.0-34.9, adult; Z79.899 Other long term (current) drug therapy; Z90.49 Acquired absence of other specified parts of digestive tract

== ENCOUNTER → 2017-02-23 | Outpatient (CLI) | payer OTHER, MEDICARE ==
[~2017-02-23] MED LIST changes: -ACETAMINOPHEN 500 MG TAB PO SCH; +ASPEC81 PO; -BUPIVACAINE 0.25% 30 ML VIAL ONE; -BUPIVACAINE 0.5 % 5 MG/1 ML PF 10ML VIAL ONE; -CEFAZOLIN 2000 MG/60 ML D5W 60 ML IV SCH; -CeleBREX 200 MG CAP PO SCH; -DEXAMETHASONE 4 MG TAB PO SCH; -FAMOTIDINE 20 MG TAB PO SCH; -GABAPENTIN 300 MG CAP PO SCH; +HYDR-5688 PO; -LACTATED RINGER'S 1000ML 1,000 ML IV SCH; -LACTATED RINGER'S 1000ML 500 ML IV ONE; -LACTATED RINGER'S 1000ML IV SCH; -METOCLOPRAMIDE HCL 10 MG TAB PO SCH; -ROPIVACAINE 5MG/ML 30 ML 150 MG, BUPIVACAINE/EPINEPHR 0.5% MPF 30 ML, KETOROLAC TROMETH... INFIL SCH
[2017-02-23 13:22] LABS: BASO % 0.2 %; BASO ABS # 0.02 K/uL (0-0.2); COMPLETE YES; EOS % 2.3 %; HEMATOCRIT 32.1 % (37-47); IG% 0.2 %; LYMPH % 18.9 %; LYMPH ABS # 1.55 K/uL (1.2-3.4); MEAN CELL VOLUME 88.9 fL (80-100); MEAN CORPUSCULAR HEMOGLOBIN 30.2 pg (25-34); MEAN PLATELET VOLUME 8.7 fL (7.4-10.4); MONO % 11.3 %; NEUT % 67.1 %; PLATELET COUNT 360 K/uL (130-400); RED BLOOD COUNT 3.61 M/uL (4.2-5.4); WHITE BLOOD COUNT 8.22 K/uL (4.8-10.8)
[2017-02-23 14:56] LABS: ALT/SGPT 32 U/L (12-78); AST/SGOT 19 U/L (15-37); BLOOD UREA NITROGEN 19 mg/dl (7-18); BUN/CREATININE RATIO 24.8 (10-20); CALCIUM 9.2 mg/dl (8.5-10.1); CARBON DIOXIDE 29 mmol/L (21-32); CHLORIDE 95 mmol/L (98-107); CREATININE 0.75 mg/dl (0.60-1.20); GLUCOSE 83 mg/dl (70-99); SODIUM 131 mmol/L (136-145)
[2017-02-23 14:59] LABS: ALKALINE PHOSPHATASE 79 U/L (45-117)
== END | disposition home or self-care (01) ==
LOC: C.LABBC 10:34
PROVIDERS: ATTEND Internal Medicine Hematology & Oncology
DX: C18.2 Malignant neoplasm of ascending colon (principal)

== ENCOUNTER → 2017-11-06 | Outpatient (CLI) | payer OTHER, MEDICARE ==
[2017-11-06 11:09] LABS: BASO % 0.2 %; BASO ABS # 0.01 K/uL (0-0.2); EOS % 2.5 %; EOS ABS # 0.13 K/uL (0-0.5); HEMATOCRIT 41.7 % (37-47); HEMOGLOBIN 14.4 g/dL (12.0-16.0); LYMPH % 27.4 %; LYMPH ABS # 1.41 K/uL (1.2-3.4); MEAN CELL VOLUME 87.8 fL (80-100); MEAN CORPUSCULAR HEMOGLOBIN 30.3 pg (25-34); MEAN CORPUSCULAR HGB CONC 34.5 g/dl (32-36); MEAN PLATELET VOLUME 9.9 fL (7.4-10.4); MONO % 8.4 %; MONO ABS # 0.43 K/uL (0.11-0.59); NEUT % 61.5 %; NEUT ABS # 3.16 K/uL (1.4-6.5); PLATELET COUNT 243 K/uL (130-400); RED CELL DISTRIBUTION WIDTH CV 14.7 % (11.5-14.5); RED CELL DISTRIBUTION WIDTH SD 47.7 fL (36.4-46.3); WHITE BLOOD COUNT 5.14 K/uL (4.8-10.8)
[2017-11-06 11:38] LABS: ALBUMIN 3.5 gm/dl (3.4-5.0); ALT/SGPT 26 U/L (12-78); AST/SGOT 16 U/L (15-37); BLOOD UREA NITROGEN 17 mg/dl (7-18); CALCIUM 8.8 mg/dl (8.5-10.1); CARBON DIOXIDE 30 mmol/L (21-32); CREATININE 0.77 mg/dl (0.60-1.20); GLUCOSE 90 mg/dl (70-99); SODIUM 133 mmol/L (136-145)
[2017-11-06 11:49] LABS: ALKALINE PHOSPHATASE 73 U/L (45-117); CHOLESTEROL 138 mg/dl (0-200); LDL CHOLESTEROL CALCULATED 66 mg/dl; TOTAL PROTEIN 7.3 gm/dl (6.4-8.2)
== END | disposition home or self-care (01) ==
LOC: C.LABBC 09:06
PROVIDERS: ATTEND Neuromusculoskeletal Medicine & OMM
DX: Z00.00 Encounter for general adult medical examination without abnormal findings (principal); I10 Essential (primary) hypertension; Z86.39 Personal history of other endocrine, nutritional and metabolic disease

== ENCOUNTER → 2018-05-24 | Outpatient (CLI) | payer OTHER, MEDICARE ==
[~2018-05-24] MED LIST changes: -AMLO2.5T PO; -ASPEC81 PO; -HYDR-5688 PO; +MENT1800 EXT; +OXYB3.9D TD; -OXYBUTYNIN TOP; +ROPI0.25 PO; +TRAM-10 PO
--- NOTE | 2018-05-24 15:22 | DIAGNOSTIC IMAGING REPORT ---
CT OF THE HEAD WITHOUT CONTRAST CLINICAL HISTORY: BPPV (benign paroxysmal positional vertigo). COMPARISON STUDY: No previous studies for comparison. CT DOSE: 638.56 mGycm TECHNIQUE: Helical axial images of the head were obtained without IV contrast. Automated exposure control was utilized for the study. A dose lowering technique was utilized adhering to the principles of ALARA. FINDINGS: No acute intracranial hemorrhage, midline shift or mass effect is present. Ventricular system is normal. Basilar cisterns are patent. There are no extra-axial collections. White matter hypodensity suggests small vessel disease. There are no findings to suggest acute dural sinus thrombosis or acute territorial infarct. Visualized portions of the sinuses and mastoid air cells are clear. There are no significant calvarial abnormalities. IMPRESSION: No acute intracranial findings. Electronically signed by: Gene Dooley M.D. 05/24/2018 3:21 PM Dictated Date/Time: 05/24/2018 3:12 PM
== END | disposition home or self-care (01) ==
LOC: C.CTS 14:58
PROVIDERS: ATTEND Neuromusculoskeletal Medicine & OMM
DX: H81.10 Benign paroxysmal vertigo, unspecified ear (principal)

== ENCOUNTER 2021-06-24 16:32 | Inpatient (IN) ==
[2021-06-24] MEDS ORDERED: ACETAMINOPHEN 500 MG TAB PO STA (16:52)
[2021-06-24 16:58] LABS: Basophils # (auto) 0.01 K/uL (0-0.2); Basophils % (auto) 0.1 %; Eosinophils # (auto) 0.12 K/uL (0-0.5); Eosinophils % (auto) 1.5 %; Hematocrit (blood only) 38.3 % (37-47); Hemoglobin 13.4 g/dL (12.0-16.0); Immature Granulocytes # (auto) 0.01 K/uL (0.00-0.02); Immature Granulocytes % (auto) 0.1 %; Lymphocytes # (auto) 1.36 K/uL (1.2-3.4); Lymphocytes % (auto) 17.3 %; Mean Corpuscular Hemoglobin 30.6 pg (25-34); Mean Corpuscular Volume 87.4 fL (80-100); Mean Platelet Volume 8.8 fL (7.4-10.4); Monocytes # (auto) 0.65 K/uL (0.11-0.59); Monocytes % (auto) 8.3 %; Neutrophils % (auto) 72.7 %; Platelet Count 246 K/uL (130-400); RDW Standard Deviation 44.8 fL (36.4-46.3); Red Blood Count 4.38 M/uL (4.2-5.4); White Blood Count 7.85 K/uL (4.8-10.8)
[2021-06-24] MEDS ORDERED: SODIUM CHLORIDE 0.9% 500 ML IV SCH (17:00)
[2021-06-24 17:08] LABS: Albumin Level 3.4 gm/dl (3.4-5.0); Aspartate Aminotransferase 22 U/L (15-37); BUN Creatinine Ratio 29.8 (10-20); Blood Urea Nitrogen 26 mg/dl (7-18); Calcium 9.2 mg/dl (8.5-10.1); Carbon Dioxide 30 mmol/L (21-32); Chloride 89 mmol/L (98-107); Est GFR (African American) 70.9 ml/min; Est GFR (Non-African American) 61.2 ml/min; Glucose 95 mg/dl (70-99); Magnesium 2.4 mg/dl (1.8-2.4); Potassium 2.9 mmol/L (3.5-5.1); Sodium 126 mmol/L (136-145)
[2021-06-24 17:09] LABS: Partial Thromboplastin Ratio 1.1; Partial Thromboplastin Time 28.3 Seconds (21.0-31.0)
--- NOTE | 2021-06-24 17:09 | Emergency Department Note ---
Impression & Plan Symptomatic bradycardia, Dizziness, Acute hyponatremia, Hypokalemia ED Provider Note NAME: VLADIMIR AWAD AGE: 86 SEX: F : 1935 ARRIVES VIA: Ambulance INFORMANT: Patient, ED PROVIDER(S): Reji Bourgeois DO CHIEF COMPLAINT: Dizziness HPI: The patient is an 86-year-old female who presented to the emergency department by ambulance for an evaluation of dizziness. The patient was seeing her primary care physician today for a follow-up appointment. She was seen last week for lower extremity swelling and was placed on Lasix. She was there for a follow-up appointment and was noted to have very irregular and slow heart sounds so an EKG was obtained. The patient states that she was sent to the emergency department because of bradycardia. She denies having any chest pain. She denies having any nausea or vomiting. She does complain of a slight headache as well as dizziness. She describes dizziness as lightheadedness. She is had no recent fevers. She denies having any rashes or exposures to ticks recently. The patient has never had similar symptoms in the past. ROS: See above HPI for pertinent positives & negatives. A total of 10 systems reviewed and were otherwise negative. PAST MEDICAL HISTORY: See Below PAST SURGICAL HISTORY: See Below FAMILY HISTORY: See Below SOCIAL HISTORY: See Below HOME MEDICATIONS: See Below ALLERGIES: See Below VITALS: See Below PHYSICAL EXAMINATION: GENERAL: Patient is awake alert in no acute distress patient is resting comfortably and showing no signs of anxiety EYES: The conjunctivae are clear. The pupils are round and reactive. EARS, NOSE, MOUTH AND THROAT: The nose is without any evidence of any deformity. NECK: The neck is nontender and supple. RESPIRATORY: Normal respiratory effort is noted there is no evidence of wheezing rhonchi or rales CARDIOVASCULAR: Regular heart sounds were noted to auscultation. There is no definite murmur. GASTROINTESTINAL: The abdomen is soft. Abdomen is nontender. MUSCULOSKELETAL/EXTREMITIES: There is no evidence of gross deformity full range of motion is noted in the hips and shoulders. SKIN: Skin is warm dry. Trace pedal edema was noted bilaterally. NEUROLOGIC: Patient is awake alert and oriented x3. MEDICAL DECISION MAKING: The patient is an 86-year-old male who presented to the emergency department for an evaluation of dizziness and slow heart rate. The patient was seen by her primary care physician last week and started on Lasix for lower extremity swelling. The patient presented again for recheck this week. She was noted to have bradycardia. She was sent to the emergency department. Blood pressure was stable. The patient continued to have episodes of bradycardia. I discussed the patient's laboratory and radiographic studies with her. She was treated with a small fluid bolus but also replacement of potassium. I discussed her case with her primary organic chemistry professor. [facility] have agreed to evaluate the patient in the emergency department for further management and disposition. The patient was feeling much better on subsequent reevaluation but still having episodes of bradycardia. Triage Nursing notes reviewed. Prior medical records reviewed Vital Signs: reviewed and remarkable for bradycardia. Differential diagnosis: Benign positional vertigo, dehydration, hypovolemia, anemia, tumor, infection, hypoglycemia, electrolyte abnormalities, cardiac sources, intracerebral event, toxicologic, neurologic, as well as other pathologies. ER treatment provided: See below Diagnostics interpreted by me: ECG: EKG was obtained in the emergency department. My interpretation is sinus rhythm at 68 bpm. PVCs were noted. Incomplete right bundle branch block pattern was noted with first-degree AV block. This was compared to a tracing from January 162016. The intermittent runs of bradycardia are new compared to the earlier tracing. A second EKG was obtained in the emergency department. My interpretation is sinus rhythm at 69 bpm. PVCs were noted. Episodes of bradycardia were noted. There was no significant change compared to the earlier tracing. Cardiac Monitoring: An order was placed for continuous cardiac monitoring. The monitor shows a rate of 46 bpm with sinus bradycardia rhythm. Laboratory studies: As stated above and show below. Imaging studies: See below Consultation(s): 1705: I discussed this case with Dr. Sharp who is the patient's primary organic chemistry professor. At this time he does recommend to either decrease or stop the patient's verapamil. 1800: I discussed this case with Dr. Correa who [facility] He will evaluate the patient in the emergency department. Past Med/Surg History Medical History (Updated 06/24/21 @ 23:45 by Reji Bourgeois DO) Eczema of lower extremity Exertional dyspnea Frequency of urination and polyuria History of colon cancer, stage I HTN (hypertension) Impacted cerumen, bilateral Surgical History History of appendectomy (2012) History of cardiac cath (2013) History of cataract surgery (2009) left History of colon surgery History of colonoscopy History of knee replacement (2012) History of right shoulder replacement History of shoulder surgery History of tubal ligation (1970) Total knee replacement status Tubal ligation status Family History Father Hypertension Cardiac arrest CHF (congestive heart failure) Mother Hypertension Cardiac arrest Cardiac disorder Stroke Sister Hypertension Stroke Aunt Stomach cancer Denies family history of Ovarian cancer Prostate cancer Myocardial infarction Breast cancer Bleeding disorder Colorectal cancer Social History Smoking Status: Never smoker Second Hand Exposure: No; Hx Alcohol Use: Yes (socially ) Alcohol type: wine Hx Substance Use: No Preferred Language: Arabic Communication Ability: Effective Visual Impairment: No Limitations Hearing Ability: Hard of Hearing marital status: Current Living Situation: Spouse current occupational status: retired Feels Safe at Home: Yes Childhood Exposure to Second-Hand Smoke: Yes Dental Care, Regularly: Yes Physical Activity Frequency: Does not Exercise Seatbelt Use: always Sunscreen Use: No Allergies Allergies Allergy/AdvReac Type Severity Reaction Status Date / Time No Known Allergies Allergy Verified 06/24/21 18:07 Home Meds Home Medications Medication Instructions Recorded Confirmed cyanocobalamin (vitamin B-12) 500 500 mcg PO QAM tab 05/01/20 06/24/21 mcg tablet triamcinolone acetonide 0.1 % 1 applic TOPICAL DAILY PRN 09/25/20 06/24/21 topical cream Lactobacillus 1 cap PO QAM cap 02/11/21 06/24/21 acidophilus-Bifidobac.animalis 31 billion cell capsule cholecalciferol (vitamin D3) 50 2,000 unit PO QAM cap 02/11/21 06/24/21 mcg (2,000 unit) capsule hydrochlorothiazide 25 mg tablet 25 mg PO QAM 02/11/21 06/24/21 losartan 100 mg tablet 100 mg PO QAM 02/11/21 06/24/21 oxybutynin chloride 5 mg tablet 5 mg PO PM 02/11/21 06/24/21 vitamins A,C,Q-affy-yrrjru 14,320 1 cap PO BID 02/11/21 06/24/21 unit-226 mg-200 unit capsule (PreserVision AREDS) zinc gluconate 50 mg tablet 50 mg PO QAM tab 02/11/21 06/24/21 aspirin 325 mg tablet (Dorinda 325 mg PO Q6H PRN 06/24/21 06/24/21 Aspirin) atenolol 25 mg tablet 25 mg PO QAM 06/24/21 06/24/21 furosemide 40 mg tablet 40 mg PO BID 06/24/21 06/24/21 potassium chloride 10 mEq 10 meq PO QAM 06/24/21 06/24/21 capsule,extended release tramadol 50 mg tablet 50 mg PO BID 06/24/21 06/24/21 verapamil 240 mg 24 hr 240 mg PO PM 06/24/21 06/24/21 capsule,extended release Previous Rx's Medication Instructions Recorded desonide 0.05 % topical cream 1 applic TOPICAL BID #60 g 08/13/20 pramipexole 0.25 mg tablet 0.25 mg PO BID 30 Days #60 tab 12/20/20 Results & Data (ED) Vital Signs Vital Signs - 24 hr 06/24/21 16:37 06/24/21 16:44 06/24/21 16:46 Temperature 36.6 C Temperature Source Oral Pulse Rate 72 66 62 Respiratory Rate 21 17 14 Respiratory Effort / Characteristics Respiratory Depth Blood Pressure 164/76 H 164/72 H 164/72 H Blood Pressure Mean 105 102 102 Pulse Oximetry 96 98 97 Oxygen Delivery Method Room Air Room Air Room Air Oxygen Flow Rate Sepsis Recent Fever Within 48 Hours No Sepsis New/Unexplained Change in Mental Status N/A Sepsis Action Taken by Nursing No Action Required 06/24/21 16:50 06/24/21 17:02 06/24/21 17:16 Temperature Temperature Source Pulse Rate 69 73 Respiratory Rate 17 22 22 Respiratory Effort / Characteristics Non-Labored Respiratory Depth Normal Blood Pressure 170/85 H 170/89 H Blood Pressure Mean 113 116 Pulse Oximetry 99 90 97 Oxygen Delivery Method Room Air Room Air Room Air Oxygen Flow Rate 99 Sepsis Recent Fever Within 48 Hours Sepsis New/Unexplained Change in Mental Status Sepsis Action Taken by Nursing 06/24/21 17:31 06/24/21 17:46 06/24/21 18:02 Temperature Temperature Source Pulse Rate 48 L 60 62 Respiratory Rate 17 17 15 Respiratory Effort / Characteristics Respiratory Depth Blood Pressure 161/90 H 138/81 184/85 H Blood Pressure Mean 113 100 118 Pulse Oximetry 100 100 100 Oxygen Delivery Method Room Air Room Air Room Air Oxygen Flow Rate Sepsis Recent Fever Within 48 Hours Sepsis New/Unexplained Change in Mental Status Sepsis Action Taken by Nursing 06/24/21 18:16 06/24/21 18:31 06/24/21 18:46 Temperature Temperature Source Pulse Rate 74 74 72 Respiratory Rate 14 17 24 Respiratory Effort / Characteristics Respiratory Depth Blood Pressure 137/82 165/81 H 177/88 H Blood Pressure Mean 100 109 117 Pulse Oximetry 97 97 95 Oxygen Delivery Method Room Air Room Air Oxygen Flow Rate Sepsis Recent Fever Within 48 Hours Sepsis New/Unexplained Change in Mental Status Sepsis Action Taken by Nursing 06/24/21 19:01 06/24/21 19:16 Temperature Temperature Source Pulse Rate 37 L 61 Respiratory Rate 22 23 Respiratory Effort / Characteristics Respiratory Depth Blood Pressure 141/83 H 146/74 H Blood Pressure Mean 102 98 Pulse Oximetry 99 96 Oxygen Delivery Method Oxygen Flow Rate Sepsis Recent Fever Within 48 Hours Sepsis New/Unexplained Change in Mental Status Sepsis Action Taken by [facility] Medications Current Medication List: was personally reviewed by me Laboratory Data Attestation: I reviewed the patient's lab results. Result diagrams: 06/24/21 16:46 06/24/21 16:46 Lab Results 06/24/21 06/24/21 06/24/21 Range/Units 16:46 16:46 16:46 WBC 7.85 (4.8-10.8) K/uL RBC 4.38 (4.2-5.4) M/uL Hgb 13.4 (12.0-16.0) g/dL Hct 38.3 (37-47) % MCV 87.4 (80-100) fL MCH 30.6 (25-34) pg MCHC 35.0 (32-36) g/dL RDW Std Deviation 44.8 (36.4-46.3) fL RDW Coeff of Xavier 14.0 (11.5-14.5) % Plt Count 246 (130-400) K/uL MPV 8.8 (7.4-10.4) fL Immature Gran % (Auto) 0.1 % Neut % (Auto) 72.7 % Lymph % (Auto) 17.3 % Jasper % (Auto) 8.3 % Eos % (Auto) 1.5 % Baso % (Auto) 0.1 % Neut # (Auto) 5.70 (1.4-6.5) K/uL Lymph # (Auto) 1.36 (1.2-3.4) K/uL Jasper # (Auto) 0.65 H (0.11-0.59) K/uL Eos # (Auto) 0.12 (0-0.5) K/uL Baso # (Auto) 0.01 (0-0.2) K/uL Immature Gran # (Auto) 0.01 (0.00-0.02) K/uL PT 10.0 (9.0-12.0) Seconds INR 1.0 (0.9-1.1) APTT 28.3 (21.0-31.0) Seconds PTT Ratio 1.1 Sodium 126 L (136-145) mmol/L Potassium 2.9 L (3.5-5.1) mmol/L Chloride 89 L (98-107) mmol/L Carbon Dioxide 30 (21-32) mmol/L Anion Gap 6.0 (3-11) BUN 26 H (7-18) mg/dl Creatinine 0.86 (0.6-1.2) mg/dl Est Cr Clr Drug Dosing 47.0 ml/min Est GFR ( Amer) 70.9 ml/min Est GFR (Non-Af Amer) 61.2 ml/min BUN/Creatinine Ratio 29.8 H (10-20) Glucose 95 (70-99) mg/dl POC Glucose (70-99) mg/dl Calcium 9.2 (8.5-10.1) mg/dl Magnesium 2.4 (1.8-2.4) mg/dl Total Bilirubin 0.7 (0.2-1) mg/dl AST 22 (15-37) U/L ALT 30 (12-78) U/L Alkaline Phosphatase 59 (45-117) U/L Total Creatine Kinase 133 (26-192) U/L Troponin I < 0.015 (0-0.045) ng/ml Total Protein 7.0 (6.4-8.2) gm/dl Albumin 3.4 (3.4-5.0) gm/dl Globulin 3.6 (2.5-4.0) gm/dl Albumin/Globulin Ratio 0.9 (0.9-2) TSH 1.220 (0.300-4.500) uIu/ml COVID-19 Eval Order SARS-CoV-2 (PCR) (Negative) 06/24/21 06/24/21 06/24/21 Range/Units 16:48 16:48 16:52 WBC (4.8-10.8) K/uL RBC (4.2-5.4) M/uL Hgb (12.0-16.0) g/dL Hct (37-47) % MCV (80-100) fL MCH (25-34) pg MCHC (32-36) g/dL RDW Std Deviation (36.4-46.3) fL RDW Coeff of Xavier (11.5-14.5) % Plt Count (130-400) K/uL MPV (7.4-10.4) fL Immature Gran % (Auto) % Neut % (Auto) % Lymph % (Auto) % Jasper % (Auto) % Eos % (Auto) % Baso % (Auto) % Neut # (Auto) (1.4-6.5) K/uL Lymph # (Auto) (1.2-3.4) K/uL Jasper # (Auto) (0.11-0.59) K/uL Eos # (Auto) (0-0.5) K/uL Baso # (Auto) (0-0.2) K/uL Immature Gran # (Auto) (0.00-0.02) K/uL PT (9.0-12.0) Seconds INR (0.9-1.1) APTT (21.0-31.0) Seconds PTT Ratio Sodium (136-145) mmol/L Potassium (3.5-5.1) mmol/L Chloride (98-107) mmol/L Carbon Dioxide (21-32) mmol/L Anion Gap (3-11) BUN (7-18) mg/dl Creatinine (0.6-1.2) mg/dl Est Cr Clr Drug Dosing ml/min Est GFR ( Amer) ml/min Est GFR (Non-Af Amer) ml/min BUN/Creatinine Ratio (10-20) Glucose (70-99) mg/dl POC Glucose 86 (70-99) mg/dl Calcium (8.5-10.1) mg/dl Magnesium (1.8-2.4) mg/dl Total Bilirubin (0.2-1) mg/dl AST (15-37) U/L ALT (12-78) U/L Alkaline Phosphatase (45-117) U/L Total Creatine Kinase (26-192) U/L Troponin I (0-0.045) ng/ml Total Protein (6.4-8.2) gm/dl Albumin (3.4-5.0) gm/dl Globulin (2.5-4.0) gm/dl Albumin/Globulin Ratio (0.9-2) TSH (0.300-4.500) uIu/ml COVID-19 Eval Order Covid19 at [facility] SARS-CoV-2 (PCR) NEGATIVE (Negative) Administered Medications Discontinued Medications Acetaminophen (Acetaminophen 500 Mg Tab) 1,000 mg PO NOW STA Stop: 06/24/21 16:53 Last Admin: 06/24/21 17:20 Dose: 1,000 mg Documented by: [id number] Sodium Chloride (Nss) 500 mls @ 999 mls/hr IV .Q31M JAKUB Stop: 06/24/21 17:30 Last Infusion: 06/24/21 19:01 Dose: 0 mls/hr Documented by: [id number] Admin: 06/24/21 17:20 Dose: 999 mls/hr Documented by: [id number] Potassium Chloride (K Haroon / Wtr) 10 meq in 100 mls @ 100 mls/hr IV ONE ONE Stop: 06/24/21 18:46 Last Infusion: 06/24/21 19:00 Dose: 0 mls/hr Documented by: [id number] Admin: 06/24/21 17:53 Dose: 100 mls/hr Documented by: [id number] Potassium Chloride (K Haroon / Wtr) 10 meq in 100 mls @ 100 mls/hr IV Q1H STA Stop: 06/24/21 20:25 Last Infusion: 06/24/21 22:36 Dose: 100 mls/hr Documented by: [id number] Admin: 06/24/21 19:53 Dose: 100 mls/hr Documented by: [id number] Potassium Chloride (Potassium Chloride Crtab 20 Meq Tabcr) 20 meq PO NOW STA Stop: 06/24/21 17:48 Last Admin: 06/24/21 17:54 Dose: 20 meq Documented by: [id number] Potassium Chloride (Potassium Chloride Crtab 20 Meq Tabcr) 40 meq PO NOW STA Stop: 06/24/21 19:27 Last Admin: 06/24/21 19:52 Dose: 40 meq Documented by: [id number] Imaging Data Radiologist's Impression: Chest X-Ray 06/24/21 16:50 XR chest 1V portable CLINICAL HISTORY: weakness COMPARISON STUDY: No previous studies for comparison. FINDINGS: No pneumothorax. No pleural effusion. No large infiltrates or consolidative lesions are seen. Diffuse reticular prominence of pulmonary interstitium is seen bilaterally. Few calcified densities are projecting to the left lower lung region and might represent costochondral calcifications versus other etiology. Cardiomediastinal silhouette is mildly enlarged. Aorta is tortuous and calcified. Minimal pulmonary vascular congestion is seen on the right. Right hilum is prominent.. Osseous structures: Degenerative changes of the spine and left shoulder. Fracture deformity of the right clavicle. Right shoulder prosthetic joint. IMPRESSION: 1. Cardiomegaly. Minimal pulmonary vascular congestion on the right. 2. No large infiltrates or consolidative lesions. 3. The rest of findings as above. ACT 112: Negative or not required by law. The above report was generated using voice recognition software. It may contain grammatical, syntax or spelling errors. Electronically signed by: Yaz Bergeron DO 06/24/2021 5:35 PM Discharge Plan Visit Data Chief Complaint: Bradycardia Stated Complaint: DIZZINESS, NAUSEA, POSSIBLE MS ED Provider: Reji Bourgeois Discharge Problem: Symptomatic bradycardia, Dizziness, Acute hyponatremia, Hypokalemia Patient Disposition: Admitted As Inpatient Condition: Good Discharge Instructions Interventions: ED Discharge Assessment Last Done: 06/24/21 23:15
[2021-06-24 17:19] LABS: Alanine Aminotransferase 30 U/L (12-78); Albumin Globulin Ratio 0.9 (0.9-2); Alkaline Phosphatase 59 U/L (45-117); Bilirubin,Total 0.7 mg/dl (0.2-1); Creatine Kinase 133 U/L (26-192); Globulin 3.6 gm/dl (2.5-4.0); Troponin I < 0.015 ng/ml (0-0.045)
--- NOTE | 2021-06-24 17:36 | XRay Report ---
XR chest 1V portable CLINICAL HISTORY: weakness COMPARISON STUDY: No previous studies for comparison. FINDINGS: No pneumothorax. No pleural effusion. No large infiltrates or consolidative lesions are seen. Diffuse reticular prominence of pulmonary interstitium is seen bilaterally. Few calcified densities a re projecting to the left lower lung region and might represent costochondral calcifications versus o ther etiology. Cardiomediastinal silhouette is mildly enlarged. Aorta is tortuous and calcified. Minimal pulmonary vascular congestion is seen on the right. Right hilum is prominent.. Osseous structures: Degenerative changes of the spine and left shoulder. Fracture deformity of the r ight clavicle. Right shoulder prosthetic joint. IMPRESSION: 1. Cardiomegaly. Minimal pulmonary vascular congestion on the right. 2. No large infiltrates or consolidative lesions. 3. The rest of findings as above. ACT 112: Negative or not required by law. The above report was generated using voice recognition software. It may contain grammatical, syntax o r spelling errors. Electronically signed by: Yaz Bergeron DO 06/24/2021 5:35 PM
[2021-06-24] MEDS ORDERED: POTASSIUM CHLORIDE CRTAB 20 MEQ TABCR PO STA ×2 (17:47→19:26)
[2021-06-24] MEDS ORDERED: POTASSIUM CHLORIDE / WTR 10 MEQ/100 ML PLCT IV ONE (17:47)
--- NOTE | 2021-06-24 19:19 | History & Physical Report ---
Date of Service June 24, 2021 Assessment & Plan (1) First degree AV block: Plan: Patient with significant first-degree AV block, a small periods of sinus arrest with a pause We will discontinue verapamil as per cardiology recommendation. We will also discontinue atenolol Consult cardiology for further recommendations, if patient has continued symptomatic bradycardia, may be a candidate for pacemaker placement Consult cardiology for further recommendations PT/OT evaluation (2) Electrolyte abnormality: Plan: Patient has significant hyponatremia and hypokalemia, likely secondary to multiple all diuretics. We will discontinue Lasix and hydrochlorothiazide IV repletion of potassium Slow normal saline, follow BMP/sodium (3) Hypertension: Plan: Discontinue beta-taylor, verapamil, diuretics as noted Continue losartan 100 mg for now. If blood pressure radha elevated, may need to consider alternative agent History of Present Illness Chief Complaint: Lightheadedness Primary Care Provider: Chalo Doran DO This is an 86-year-old female with past medical history of hypertension, eczema, polyneuropathy that presents today complaining of lightheadedness. Patient is a decent historian, accompanied by a family member. Patient tells me she has been having worsening lower extremity edema for the past few weeks. She saw her primary care physician and it was prescribed Lasix 40 mg p.o. twice daily. She also appears to be on hydrochlorothiazide per her medication reconciliation. Patient took the medication as directed, found that her lower extremity edema, while still quite severe did in fact improve. She went to her follow-up appointment today but found that starting yesterday evening she was having a lot of dizziness and lightheadedness. She felt generally weak. At her PCPs office, she was found to have a pulse as low as 30bpm as well as some hypotension. She was told to present to the emergency room for further evaluation. At the time my evaluation, I found that her blood pressure was actually somewhat elevated at 165/81. However, heart rate has been as low as 52. EKG showed a very significant first-degree AV block, there was also a long pause in one of the leads. She tells me she does feel better and she did not experience any significant dysrhythmia on the monitor during my evaluation. She is physically not any chest pain, shortness of breath, palpitations, nausea or vomiting. The ER physician discussed with cardiology, was told to discontinue the patient's verapamil. Patient was found to have significant electrolyte disturbances and now being admitted for treatment of these. Allergies Allergy/AdvReac Type Severity Reaction Status Date / Time No Known Allergies Allergy Verified 06/24/21 18:07 Home Medications Medication Instructions Recorded Confirmed Type cyanocobalamin (vitamin B-12) 500 500 mcg PO QAM tab 05/01/20 06/24/21 History mcg tablet desonide 0.05 % topical cream 1 applic TOPICAL BID #60 g 08/13/20 06/24/21 Rx triamcinolone acetonide 0.1 % 1 applic TOPICAL DAILY PRN 09/25/20 06/24/21 History topical cream pramipexole 0.25 mg tablet 0.25 mg PO BID 30 Days #60 tab 12/20/20 06/24/21 Rx Lactobacillus 1 cap PO QAM cap 02/11/21 06/24/21 History acidophilus-Bifidobac.animalis 31 billion cell capsule cholecalciferol (vitamin D3) 50 2,000 unit PO QAM cap 02/11/21 06/24/21 History mcg (2,000 unit) capsule hydrochlorothiazide 25 mg tablet 25 mg PO QAM 02/11/21 06/24/21 History losartan 100 mg tablet 100 mg PO QAM 02/11/21 06/24/21 History oxybutynin chloride 5 mg tablet 5 mg PO PM 02/11/21 06/24/21 History vitamins A,C,N-qdjg-hwtrkd 14,320 1 cap PO BID 02/11/21 06/24/21 History unit-226 mg-200 unit capsule (PreserVision AREDS) zinc gluconate 50 mg tablet 50 mg PO QAM tab 02/11/21 06/24/21 History aspirin 325 mg tablet (Dorinda 325 mg PO Q6H PRN 06/24/21 06/24/21 History Aspirin) atenolol 25 mg tablet 25 mg PO QAM 06/24/21 06/24/21 History furosemide 40 mg tablet 40 mg PO BID 06/24/21 06/24/21 History potassium chloride 10 mEq 10 meq PO QAM 06/24/21 06/24/21 History capsule,extended release tramadol 50 mg tablet 50 mg PO BID 06/24/21 06/24/21 History verapamil 240 mg 24 hr 240 mg PO PM 06/24/21 06/24/21 History capsule,extended release Past Med/Surg History Medical History (Updated 06/24/21 @ 19:14 by Rao Correa DO) Eczema of lower extremity Exertional dyspnea Frequency of urination and polyuria History of colon cancer, stage I HTN (hypertension) Impacted cerumen, bilateral Surgical History History of appendectomy (2012) History of cardiac cath (2013) History of cataract surgery (2009) left History of colon surgery History of colonoscopy History of knee replacement (2012) History of right shoulder replacement History of shoulder surgery History of tubal ligation (1970) Total knee replacement status Tubal ligation status Family History Father Hypertension Cardiac arrest CHF (congestive heart failure) Mother Hypertension Cardiac arrest Cardiac disorder Stroke Sister Hypertension Stroke Aunt Stomach cancer Denies family history of Ovarian cancer Prostate cancer Myocardial infarction Breast cancer Bleeding disorder Colorectal cancer Social History Smoking Status: Never smoker Second Hand Exposure: No; Hx Alcohol Use: Yes (socially ) Alcohol type: wine Hx Substance Use: No Preferred Language: Czech Communication Ability: Effective Visual Impairment: No Limitations Hearing Ability: Hard of Hearing marital status: Current Living Situation: Spouse current occupational status: retired Feels Safe at Home: Yes Childhood Exposure to Second-Hand Smoke: Yes Dental Care, Regularly: Yes Physical Activity Frequency: Does not Exercise Seatbelt Use: always Sunscreen Use: No Review of Systems Constitutional: + weakness; no fever, no chills, no weight loss and no weight gain Eyes: as per Subjective / HPI Respiratory: no cough, no chest congestion, no dyspnea and no dyspnea on exertion Cardiovascular: no chest pain, no orthopnea, no palpitations, no lightheadedness and no edema Gastrointestinal: no abdominal pain, no nausea, no vomiting, no constipation and no diarrhea/loose stools Genitourinary: no dysuria, no difficulty urinating, no urinary frequency, no urinary hesitancy, no urinary urgency and no flank pain Musculoskeletal: no back pain, no neck pain, no joint pain, no stiffness and no myalgia Integumentary: no rash Neurologic: + unsteadiness and + generalized weakness; no gait abnormality and no falls Physical Exam Constitutional: cooperative; no acute distress Neck: trachea midline, no thyromegaly Respiratory: normal respiratory effort Auscultation: lungs clear to auscultation bilaterally; no crackles, no rales, no rhonchi and no wheezes Cardiovascular: Rate/Rhythm: + bradycardic and + irregularly irregular Heart Sounds: normal S1, normal S2 and + murmur Extremities: + edema Gastrointestinal (Abdomen): Inspection/Auscultation: abdomen normal to inspection Percussion/Palpation: abdomen soft; abdomen nontender, no guarding, abdomen not rigid and no hepatosplenomegaly Skin: no rashes, warm and dry Results & Data Results & Data ([facility]) Vital Signs (Past 12 Hours) Vital Signs Temp Pulse Resp BP Pulse Ox 06/24/21 18:31 74 17 165/81 H 97 06/24/21 18:16 74 14 137/82 97 06/24/21 18:02 62 15 184/85 H 100 06/24/21 17:46 60 17 138/81 100 06/24/21 17:31 48 L 17 161/90 H 100 06/24/21 17:16 73 22 170/89 H 97 06/24/21 17:02 69 22 170/85 H 90 06/24/21 16:50 17 99 06/24/21 16:46 62 14 164/72 H 97 06/24/21 16:44 36.6 C 66 17 164/72 H 98 06/24/21 16:37 72 21 164/76 H 96 Laboratory Results Laboratory Results WBC 7.85 K/uL (4.8-10.8) 06/24/21 16:46 RBC 4.38 M/uL (4.2-5.4) 06/24/21 16:46 Hgb 13.4 g/dL (12.0-16.0) 06/24/21 16:46 Hct 38.3 % (37-47) 06/24/21 16:46 MCV 87.4 fL (80-100) 06/24/21 16:46 MCH 30.6 pg (25-34) 06/24/21 16:46 MCHC 35.0 g/dL (32-36) 06/24/21 16:46 RDW Std Deviation 44.8 fL (36.4-46.3) 06/24/21 16:46 RDW Coeff of Xavier 14.0 % (11.5-14.5) 06/24/21 16:46 Plt Count 246 K/uL (130-400) 06/24/21 16:46 MPV 8.8 fL (7.4-10.4) 06/24/21 16:46 Immature Gran % (Auto) 0.1 % 06/24/21 16:46 Neut % (Auto) 72.7 % 06/24/21 16:46 Lymph % (Auto) 17.3 % 06/24/21 16:46 [place] % (Auto) 8.3 % 06/24/21 16:46 Eos % (Auto) 1.5 % 06/24/21 16:46 Baso % (Auto) 0.1 % 06/24/21 16:46 Neut # (Auto) 5.70 K/uL (1.4-6.5) 06/24/21 16:46 Lymph # (Auto) 1.36 K/uL (1.2-3.4) 06/24/21 16:46 [place] # (Auto) 0.65 K/uL (0.11-0.59) H 06/24/21 16:46 Eos # (Auto) 0.12 K/uL (0-0.5) 06/24/21 16:46 Baso # (Auto) 0.01 K/uL (0-0.2) 06/24/21 16:46 Immature Gran # (Auto) 0.01 K/uL (0.00-0.02) 06/24/21 16:46 PT 10.0 Seconds (9.0-12.0) 06/24/21 16:46 INR 1.0 (0.9-1.1) 06/24/21 16:46 APTT 28.3 Seconds (21.0-31.0) 06/24/21 16:46 PTT Ratio 1.1 06/24/21 16:46 Sodium 126 mmol/L (136-145) L 06/24/21 16:46 Potassium 2.9 mmol/L (3.5-5.1) L 06/24/21 16:46 Chloride 89 mmol/L (98-107) L 06/24/21 16:46 Carbon Dioxide 30 mmol/L (21-32) 06/24/21 16:46 Anion Gap 6.0 (3-11) 06/24/21 16:46 BUN 26 mg/dl (7-18) H 06/24/21 16:46 Creatinine 0.86 mg/dl (0.6-1.2) 06/24/21 16:46 Est Cr Clr Drug Dosing 47.0 ml/min 06/24/21 16:46 Est GFR ( Amer) 70.9 ml/min 06/24/21 16:46 Est GFR (Non-Af Amer) 61.2 ml/min 06/24/21 16:46 BUN/Creatinine Ratio 29.8 (10-20) H 06/24/21 16:46 Glucose 95 mg/dl (70-99) 06/24/21 16:46 POC Glucose 86 mg/dl (70-99) 06/24/21 16:52 Calcium 9.2 mg/dl (8.5-10.1) 06/24/21 16:46 Magnesium 2.4 mg/dl (1.8-2.4) 06/24/21 16:46 Total Bilirubin 0.7 mg/dl (0.2-1) 06/24/21 16:46 AST 22 U/L (15-37) 06/24/21 16:46 ALT 30 U/L (12-78) 06/24/21 16:46 Alkaline Phosphatase 59 U/L (45-117) 06/24/21 16:46 Total Creatine Kinase 133 U/L (26-192) 06/24/21 16:46 Troponin I < 0.015 ng/ml (0-0.045) 06/24/21 16:46 Total Protein 7.0 gm/dl (6.4-8.2) 06/24/21 16:46 Albumin 3.4 gm/dl (3.4-5.0) 06/24/21 16:46 Globulin 3.6 gm/dl (2.5-4.0) 06/24/21 16:46 Albumin/Globulin Ratio 0.9 (0.9-2) 06/24/21 16:46 TSH 1.220 uIu/ml (0.300-4.500) 06/24/21 16:46 COVID-19 Eval Order Covid19 at [facility] 06/24/21 16:48 SARS-CoV-2 (PCR) NEGATIVE (Negative) 06/24/21 16:48 Impressions Chest X-Ray 06/24/21 16:50 XR chest 1V portable CLINICAL HISTORY: weakness COMPARISON STUDY: No previous studies for comparison. FINDINGS: No pneumothorax. No pleural effusion. No large infiltrates or consolidative lesions are seen. Diffuse reticular prominence of pulmonary interstitium is seen bilaterally. Few calcified densities are projecting to the left lower lung region and might repr esent costochondral calcifications versus other etiology. Cardiomediastinal silhouette is mildly enlarged. Aorta is tortuous and calcified. Minimal pulmonary vascular congestion is seen on the right. Right hilum is prominent.. Osseous structures: Degenerative changes of the spine and left shoulder. Fracture deformity of the right clavicle. Right shoulder prosthetic joint. IMPRESSION: 1. Cardiomegaly. Minimal pulmonary vascular congestion on the right. 2. No large infiltrates or consolidative lesions. 3. The rest of findings as above. ACT 112: Negative or not required by law. The above report was generated using voice recognition software. It may contain grammatical, syntax or spelling errors. Electronically signed by: Yaz Bergeron DO 06/24/2021 5:35 PM PG Care Time/CCT Total # of Minutes Spent Total Time Spent with Patient: Total time spent is greater than 50% in coordination of care (as documented) at patient's floor/unit and/or counseling patient: Coding Level of Care Code INT OBSERVATION CARE 70M LVL 3 Diagnoses First degree AV block I44.0 Electrolyte abnormality E87.8 Hypertension I10
[2021-06-24] MEDS ORDERED: POTASSIUM CHLORIDE / WTR 10 MEQ/100 ML PLCT IV STA (19:26)
[2021-06-25] MEDS ORDERED: ACETAMINOPHEN 325 MG TAB PO PRN (00:15)
[2021-06-25] MEDS ORDERED: ASPIRIN 325 MG ECTAB PO PRN (00:15)
[2021-06-25] MEDS ORDERED: OXYBUTYNIN CHLORIDE 5 MG TAB PO SCH (00:30)
[2021-06-25] MEDS ORDERED: ENOXAPARIN INJ 40 MG/0.4 ML SYR SQ SCH (00:45)
[2021-06-25] MEDS ORDERED: NSS + 20MEQ KCL 20 MEQ/1,000 ML BAG IV SCH (00:45)
[2021-06-25] MEDS: traMADol HCL 50 MG TABLET PO SCH ×2 (02:51→07:53)
[2021-06-25] MEDS: PRAMIPEXOLE DIHYDROCHLO 0.25 MG TAB PO SCH ×2 (02:51→07:54)
[2021-06-25 06:17] LABS: Basophils # (auto) 0.02 K/uL (0-0.2); Basophils % (auto) 0.3 %; Eosinophils # (auto) 0.17 K/uL (0-0.5); Eosinophils % (auto) 2.6 %; Hematocrit (blood only) 36.9 % (37-47); Hemoglobin 12.8 g/dL (12.0-16.0); Immature Granulocytes # (auto) 0.01 K/uL (0.00-0.02); Immature Granulocytes % (auto) 0.2 %; Lymphocytes # (auto) 1.24 K/uL (1.2-3.4); Lymphocytes % (auto) 18.8 %; Mean Corpuscular Hemoglobin 30.6 pg (25-34); Mean Corpuscular Hgb Conc 34.7 g/dL (32-36); Mean Corpuscular Volume 88.3 fL (80-100); Mean Platelet Volume 8.8 fL (7.4-10.4); Monocytes # (auto) 0.65 K/uL (0.11-0.59); Monocytes % (auto) 9.9 %; Neutrophils # (auto) 4.49 K/uL (1.4-6.5); Neutrophils % (auto) 68.2 %; Platelet Count 243 K/uL (130-400); RDW Coefficient of Variation 14.3 % (11.5-14.5); RDW Standard Deviation 46.2 fL (36.4-46.3); Red Blood Count 4.18 M/uL (4.2-5.4); White Blood Count 6.58 K/uL (4.8-10.8)
[2021-06-25 06:49] LABS: BUN Creatinine Ratio 26.9 (10-20); Calcium 8.4 mg/dl (8.5-10.1); Creatinine Clr Calc Pharmacy 65.2 ml/min; Est GFR (African American) 94.6 ml/min; Est GFR (Non-African American) 81.6 ml/min; Magnesium 2.1 mg/dl (1.8-2.4); Potassium 3.6 mmol/L (3.5-5.1)
[2021-06-25] MEDS ORDERED: CHOLECALCIFEROL 1,000 UNITS 25 MCG TAB PO SCH (09:00)
[2021-06-25] MEDS ORDERED: LOSARTAN POTASSIUM 50 MG TAB PO SCH (09:00)
[2021-06-25] MEDS ORDERED: POTASSIUM CHLORIDE 10 MEQ TABCR PO SCH (09:00)
[2021-06-25] MEDS ORDERED: ZINC SULFATE 220 MG CAPSULE PO SCH (09:00)
[2021-06-25] MEDS ORDERED: ADVANCED PROBIOTIC 1250 MG CAPSULE PO SCH (09:00)
[2021-06-25] MEDS ORDERED: CYANOCOBALAMIN 500 MCG TABLET (VITAMIN B-12) PO SCH (09:00)
--- NOTE | 2021-06-25 10:54 | Cardiology Consultation ---
Date of Consultation June 25, 2021 Assessment & Plan (1) Dizziness: (2) Hypertension: (3) Mitral regurgitation: 1. Bradycardia: Her bradycardia is related to frequent atrial ectopy. She seems to have a pattern of atrial bigeminy and blocked PACs on occasion. I do not think this is a new phenomenon for the patient. It does not appear that verapamil has attenuated the degree of atrial ectopy and given her lower extremity edema, perhaps a an alternative antihypertensive should be chosen. She was on beta-taylor as an outpatient transiently, but reported some vague symptoms and this was discontinued in favor of returning to to verapamil. I do not think there is an immediate indication for a pacemaker. It is likely that the patient's dizziness was a combination of volume depletion and arrhythmia. I think if she is ambulatory without symptoms as she has suggested earlier today and discharged without verapamil and follow-up in our clinic would be reasonable. 2. Hypertension: Verapamil was being used as an antihypertensive. Amlodipine had been tried previously. She reported worsening lower extremity edema with amlodipine, but this edema does not appear to have resolved with a return to verapamil. I think trying amlodipine again would be a good option as an a lternative to verapamil. This would not produce any bradycardia. Alternatively an alpha antagonist would be reasonable. This is less desirable with her aortic dimensions. the addition of spironolactone could also be entertained. 3. Lower extremity edema: Despite aggressive diuresis she continues to have an element of lower extremity edema. Likely also related to venous insufficiency. She does employ conservative measures at home and in fact this morning after being in bed most of the evening with her legs elevated the edema is improved. 4. Mitral regurgitation: Mild. 5. Aortic root and ascending aortic dilation: This is very mild on her echocardiogram. Ideally, she would be on beta-blockade, but I think we will wait to reinstitute beta-taylor to see if she has recurrent symptoms over the next few weeks. 6. Frequent atrial ectopy: She appears to have periods of atrial bigeminy. This result some blocked PACs on occasion and a ventricular rate in the 30s. However, this tends to occur when she is relaxing and likely represents higher degrees of vagal tone resulting in worse AV james conduction. I think with activity her conduction improves and she did not report symptoms this morning with ambulation. Calcium channel blockers did not seem to have any effect on this ectopy. Beta-blockers could be tried we may attempt this in the outpatient setting once her symptoms resolved. Alternatively an antiarrhythmic if she is truly symptomatic. However, without symptoms there is no concern regarding this frequent ectopy ( Although it is known to be a precursor for development of atrial fibrillation). History of Present Illness Reason for Consultation: dizziness, bradycardia Requesting Physician: Sunny Attending Physician: Israel Phillips, History of Present Illness the patient is an 86-year-old woman without a significant cardiac history who was sent to the emergency room yesterday over concerns of an abnormal EKG. It seems that a week or 2 ago the patient had been prescribed some additional diuretic for persistent lower extremity edema. Four days ago the patient began to notice some symptoms of dizziness and nausea that were fairly mild. However, these became progressive over the course of the next few days. She did not report feeling presyncopal. She did not actually have syncope. She did not vomit or have other gastrointestinal symptoms. She had routine evaluation yesterday in the outpatient setting and based on her symptoms, low heart rate and what was perceived to be an EKG suggesting injury she was sent to the emergency room. The patient states that she feels marginally better this morning. She has little opportunity for ambulation, but did ambulate to the bathroom and back without significant dizziness. Her main concern currently is getting breakfast. She does have a sense of nausea and attributes this taking her medicines without food. She has not been aware of any palpitations. She did not endorse symptoms of chest discomfort. She denied breathing difficulty. She has some difficulty with ambulation due to persistent knee pain. Allergies Allergy/AdvReac Type Severity Reaction Status Date / Time No Known Allergies Allergy Verified 06/24/21 18:07 Home Medications Medication Instructions Recorded Confirmed Type cyanocobalamin (vitamin B-12) 500 500 mcg PO QAM tab 05/01/20 06/24/21 History mcg tablet desonide 0.05 % topical cream 1 applic TOPICAL BID #60 g 08/13/20 06/24/21 Rx triamcinolone acetonide 0.1 % 1 applic TOPICAL DAILY PRN 09/25/20 06/24/21 History topical cream pramipexole 0.25 mg tablet 0.25 mg PO BID 30 Days #60 tab 12/20/20 06/24/21 Rx Lactobacillus 1 cap PO QAM cap 02/11/21 06/24/21 History acidophilus-Bifidobac.animalis 31 billion cell capsule cholecalciferol (vitamin D3) 50 2,000 unit PO QAM cap 02/11/21 06/24/21 History mcg (2,000 unit) capsule hydrochlorothiazide 25 mg tablet 25 mg PO QAM 02/11/21 06/24/21 History losartan 100 mg tablet 100 mg PO QAM 02/11/21 06/24/21 History oxybutynin chloride 5 mg tablet 5 mg PO PM 02/11/21 06/24/21 History vitamins A,C,M-pnmx-ftxopk 14,320 1 cap PO BID 02/11/21 06/24/21 History unit-226 mg-200 unit capsule (PreserVision AREDS) zinc gluconate 50 mg tablet 50 mg PO QAM tab 02/11/21 06/24/21 History aspirin 325 mg tablet (Dorinda 325 mg PO Q6H PRN 06/24/21 06/24/21 History Aspirin) atenolol 25 mg tablet 25 mg PO QAM 06/24/21 06/24/21 History furosemide 40 mg tablet 40 mg PO BID 06/24/21 06/24/21 History potassium chloride 10 mEq 10 meq PO QAM 06/24/21 06/24/21 History capsule,extended release tramadol 50 mg tablet 50 mg PO BID 06/24/21 06/24/21 History verapamil 240 mg 24 hr 240 mg PO PM 06/24/21 06/24/21 History capsule,extended release Patient History Medical History (Updated 06/24/21 @ 23:45 by Reji Bourgeois DO) Eczema of lower extremity Exertional dyspnea Frequency of urination and polyuria History of colon cancer, stage I HTN (hypertension) Impacted cerumen, bilateral Surgical History History of appendectomy (2012) History of cardiac cath (2013) History of cataract surgery (2009) left History of colon surgery History of colonoscopy History of knee replacement (2012) History of right shoulder replacement History of shoulder surgery History of tubal ligation (1970) Total knee replacement status Tubal ligation status Family History Father Hypertension Cardiac arrest CHF (congestive heart failure) Mother Hypertension Cardiac arrest Cardiac disorder Stroke Sister Hypertension Stroke Aunt Stomach cancer Denies family history of Ovarian cancer Prostate cancer Myocardial infarction Breast cancer Bleeding disorder Colorectal cancer Social History Smoking Status: Never smoker Second Hand Exposure: No; Hx Alcohol Use: No Hx Substance Use: No Preferred Language: Korean Communication Ability: Effective Visual Impairment: No Limitations Hearing Ability: Hard of Hearing Beliefs That Will Affect Care: None marital status: Current Living Situation: Spouse current occupational status: retired Other Information That Helps Us Care for You: No Feels Safe at Home: Yes Safety Concerns: Feels Safe At This Time Childhood Exposure to Second-Hand Smoke: Yes Dental Care, Regularly: Yes Physical Activity Frequency: Does not Exercise Seatbelt Use: always Sunscreen Use: No Assistive Devices: Glasses and Hearing Aid - Bilateral Assistive Devices Comment: with patient Review of Systems Review of Systems: Per HPI Physical Exam Physical Exam: She is alert and oriented x3. Mood affect appear normal. She answered all questions appropriately. HEENT: Sclerae are anicteric. Pupils are equal and reactive to light and accommodation. Extraocular movements were intact. Neuro: Cranial nerves intact Neck: Examination of the submandibular region did not reveal any significant lymphadenopathy. Carotids are palpable bilaterally and free of bruits on auscultation. There was no evidence of jugular venous distention. The thyroid was not enlarged. Lungs: Lungs are clear to auscultation bilaterally. There are no rales wheezes or rhonchi. She has normal respiratory effort without use of accessory muscles. There is normal pulmonary excursion. Cardiac: The rhythm was irregular. S1 and S2 were normal. There are no murmurs on examination. The PMI was not markedly displaced on palpation. Abdomen: The abdomen was soft and nontender. Extremities: Patient has bilateral radial pulses that are equal in intensity. There is no evidence cyanosis or clubbing. mild lower extremity edema primarily involving the ankles and feet Skin: There are no rashes noted on examination today. Results & Data ([facility]) Vital Signs (Past 12 Hours) Vital Signs Temp Pulse Pulse Resp BP BP Pulse Ox 06/25/21 07:32 36.7 C 70 23 153/75 H 96 06/25/21 06:22 67 146/102 H 93 06/25/21 04:07 62 152/77 H 96 06/25/21 02:45 59 L 17 95 06/25/21 02:37 40 L 16 96 06/25/21 02:16 72 22 131/64 96 06/25/21 02:01 76 17 158/62 H 96 06/25/21 01:47 83 16 191/102 H 96 06/25/21 01:31 38 L 15 150/54 H 94 06/25/21 01:16 55 L 12 155/89 H 97 06/25/21 01:00 62 14 174/92 H 96 06/25/21 00:31 81 12 175/85 H 94 06/25/21 00:17 74 15 160/94 H 97 06/25/21 00:15 36.6 C 16 160/94 H 96 06/25/21 00:00 55 L 17 147/68 H 96 06/24/21 23:45 55 L 20 138/91 97 06/24/21 23:30 82 18 156/78 H 94 06/24/21 23:16 46 L 17 142/61 H 97 06/24/21 23:00 79 21 152/80 H 92 06/24/21 22:45 71 20 154/81 H 95 Pulse Ox 06/25/21 07:32 06/25/21 06:22 06/25/21 04:07 06/25/21 02:45 06/25/21 02:37 06/25/21 02:16 06/25/21 02:01 06/25/21 01:47 06/25/21 01:31 06/25/21 01:16 06/25/21 01:00 06/25/21 00:31 06/25/21 00:17 06/25/21 00:15 96 06/25/21 00:00 06/24/21 23:45 06/24/21 23:30 06/24/21 23:16 06/24/21 23:00 06/24/21 22:45 Laboratory Results Abnormal Lab Results 06/24/21 06/24/21 06/24/21 16:46 16:46 16:46 WBC 7.85 RBC 4.38 Hgb 13.4 Hct 38.3 MCV 87.4 MCH 30.6 MCHC 35.0 RDW Std Deviation 44.8 RDW Coeff of Xavier 14.0 Plt Count 246 MPV 8.8 Immature Gran % (Auto) 0.1 Neut % (Auto) 72.7 Lymph % (Auto) 17.3 Angelina % (Auto) 8.3 Eos % (Auto) 1.5 Baso % (Auto) 0.1 Neut # (Auto) 5.70 Lymph # (Auto) 1.36 Angelina # (Auto) 0.65 H Eos # (Auto) 0.12 Baso # (Auto) 0.01 Immature Gran # (Auto) 0.01 PT 10.0 INR 1.0 APTT 28.3 PTT Ratio 1.1 Sodium 126 L Potassium 2.9 L Chloride 89 L Carbon Dioxide 30 Anion Gap 6.0 BUN 26 H Creatinine 0.86 Est Cr Clr Drug Dosing 47.0 Est GFR ( Amer) 70.9 Est GFR (Non-Af Amer) 61.2 BUN/Creatinine Ratio 29.8 H Glucose 95 POC Glucose Calcium 9.2 Magnesium 2.4 Total Bilirubin 0.7 AST 22 ALT 30 Alkaline Phosphatase 59 Total Creatine Kinase 133 Troponin I < 0.015 Total Protein 7.0 Albumin 3.4 Globulin 3.6 Albumin/Globulin Ratio 0.9 TSH 1.220 COVID-19 Eval Order SARS-CoV-2 (PCR) 06/24/21 06/24/21 06/24/21 16:48 16:48 16:52 WBC RBC Hgb Hct MCV MCH MCHC RDW Std Deviation RDW Coeff of Xavier Plt Count MPV Immature Gran % (Auto) Neut % (Auto) Lymph % (Auto) Angelina % (Auto) Eos % (Auto) Baso % (Auto) Neut # (Auto) Lymph # (Auto) Angelina # (Auto) Eos # (Auto) Baso # (Auto) Immature Gran # (Auto) PT INR APTT PTT Ratio Sodium Potassium Chloride Carbon Dioxide Anion Gap BUN Creatinine Est Cr Clr Drug Dosing Est GFR ( Amer) Est GFR (Non-Af Amer) BUN/Creatinine Ratio Glucose POC Glucose 86 Calcium Magnesium Total Bilirubin AST ALT Alkaline Phosphatase Total Creatine Kinase Troponin I Total Protein Albumin Globulin Albumin/Globulin Ratio TSH COVID-19 Eval Order Covid19 at [facility] SARS-CoV-2 (PCR) NEGATIVE 06/25/21 06/25/21 05:24 05:24 WBC 6.58 RBC 4.18 L Hgb 12.8 Hct 36.9 L MCV 88.3 MCH 30.6 MCHC 34.7 RDW Std Deviation 46.2 RDW Coeff of Xavier 14.3 Plt Count 243 MPV 8.8 Immature Gran % (Auto) 0.2 Neut % (Auto) 68.2 Lymph % (Auto) 18.8 Angelina % (Auto) 9.9 Eos % (Auto) 2.6 Baso % (Auto) 0.3 Neut # (Auto) 4.49 Lymph # (Auto) 1.24 Angelina # (Auto) 0.65 H Eos # (Auto) 0.17 Baso # (Auto) 0.02 Immature Gran # (Auto) 0.01 PT INR APTT PTT Ratio Sodium 130 L Potassium 3.6 D Chloride 98 Carbon Dioxide 28 Anion Gap 4.0 BUN 17 Creatinine 0.62 Est Cr Clr Drug Dosing 65.2 Est GFR ( Amer) 94.6 Est GFR (Non-Af Amer) 81.6 BUN/Creatinine Ratio 26.9 H Glucose 87 POC Glucose Calcium 8.4 L Magnesium 2.1 Total Bilirubin AST ALT Alkaline Phosphatase Total Creatine Kinase Troponin I Total Protein Albumin Globulin Albumin/Globulin Ratio TSH COVID-19 Eval Order SARS-CoV-2 (PCR) Diagnostic Findings echocardiogram performed 09/17/2020: Normal LV systolic function with ejection fraction 55-60 percent. Mild mitral regurgitation. Moderate LVH. Mildly dilated ascending aorta and mild aortic root dilation with aortic root diameter of 4 centimeters. PG Care Time/CCT Total # of Minutes Spent Total Time Spent with Patient: Total time spent is greater than 50% in coordination of care (as documented) at patient's floor/unit and/or counseling patient: Coding Level of Care Code INT OBSERVATION CARE 70M LVL 3 Diagnoses Dizziness R42 Hypertension I10 Mitral regurgitation I34.0
[2021-06-25 11:10] VITALS: TEMP 97.9
[2021-06-25 14:37] VITALS: O2SAT 98
[2021-06-25 15:40] VITALS: BP 152/76; PULSE 78
--- NOTE | 2021-06-25 16:17 | Electrocardiogram Report ---
Test Reason : Blood Pressure : / mmHG Vent. Rate : 068 BPM Atrial Rate : 068 BPM P-R Int : 248 ms QRS Dur : 116 ms QT Int : 506 ms P-R-T Axes : 005 029 -41 degrees QTc Int : 538 ms Poor data quality, interpretation may be adversely affected Sinus rhythm with 1st degree A-V block Premature ventricular complexes Incomplete right bundle branch block Prolonged QT Abnormal ECG When compared with ECG of 16-JAN-2017 14:47, Incomplete right bundle branch block is now Present Confirmed by Reji Álvarez ([id number]) on 06/25/2021 4:17:29 PM Referred By: Chalo Doran Confirmed By:Reji Álvarez
--- NOTE | 2021-06-25 16:18 | Electrocardiogram Report ---
Test Reason : Blood Pressure : / mmHG Vent. Rate : 069 BPM Atrial Rate : 069 BPM P-R Int : 244 ms QRS Dur : 118 ms QT Int : 506 ms P-R-T Axes : 071 036 -40 degrees QTc Int : 542 ms Sinus rhythm with 1st degree A-V block with occasional Premature ventricular complexes Incomplete right bundle branch block Inferior infarct , age undetermined Prolonged QT Abnormal ECG When compared with ECG of 24-JUN-2021 16:53, (unconfirmed) No significant change Confirmed by Reji Álvarez ([id number]) on 06/25/2021 4:18:33 PM Referred By: Chalo Doran Confirmed By:Reji Álvarez
--- NOTE | 2021-06-25 16:27 | Electrocardiogram Report ---
Test Reason : Blood Pressure : / mmHG Vent. Rate : 066 BPM Atrial Rate : 065 BPM P-R Int : 234 ms QRS Dur : 106 ms QT Int : 502 ms P-R-T Axes : -25 109 -25 degrees QTc Int : 526 ms Sinus rhythm with 1st degree A-V block Premature ventricular complexes Inferior infarct (cited on or before 24-JUN-2021) Prolonged QT Abnormal ECG When compared with ECG of 24-JUN-2021 16:53, (unconfirmed) Incomplete right bundle branch block is no longer Present Confirmed by Reji Álvarez ([id number]) on 06/25/2021 4:27:23 PM Referred By: Chalo Doran Confirmed By:Reji Álvarez
--- NOTE | 2021-06-25 18:31 | Discharge Summary ---
Date of Service June 25, 2021 Admission HPI Per Admitting Provider This is an 86-year-old female with past medical history of hypertension, eczema, polyneuropathy that presents today complaining of lightheadedness. Patient is a decent historian, accompanied by a family member. Patient tells me she has been having worsening lower extremity edema for the past few weeks. She saw her primary care physician and it was prescribed Lasix 40 mg p.o. twice daily. She also appears to be on hydrochlorothiazide per her medication reconciliation. Patient took the medication as directed, found that her lower extremity edema, while still quite severe did in fact improve. She went to her follow-up appointment today but found that starting yesterday evening she was having a lot of dizziness and lightheadedness. She felt generally weak. At her PCPs office, she was found to have a pulse as low as 30bpm as well as some hypotension. She was told to present to the emergency room for further evaluation. At the time my evaluation, I found that her blood pressure was actually somewhat elevated at 165/81. However, heart rate has been as low as 52. EKG showed a very significant first-degree AV block, there was also a long pause in one of the leads. She tells me she does feel better and she did not experience any significant dysrhythmia on the monitor during my evaluation. She is physically not any chest pain, shortness of breath, palpitations, nausea or vomiting. The ER physician discussed with cardiology, was told to discontinue the patient's verapamil. Patient was found to have significant electrolyte disturbances and now being admitted for treatment of these. Principal Diagnosis 1. Dizzinesslikely multifactorial (from bradycardia and hyponatremia)resolved 2. Bradycardiaresolved 3. Hyponatremia (hypovolemic)resolved 4. Hypokalemiareplaced and resolved Discharge Exam General: Resting comfortably in her hospital bed. Appears younger than stated age. NAD. Neck: No JVD. Negative hepatojugular reflex Cardiac: Currently in a sinus rhythm with frequent ectopy. 2/6 HUONG Lungs: CTA without W/R/R Abdomen: Normoactive X4. Soft and nontender in all quadrants. Extremities: No peripheral clubbing cyanosis or edema Neuro: A&O X4 cranial nerves II through XII are grossly intact no focal neuro deficits Skin: No obvious skin lesions or rashes Discharge Data Allergies Allergy/AdvReac Type Severity Reaction Status Date / Time No Known Allergies Allergy Verified 06/24/21 18:07 Consultations 06/24/21 18:01 ED Decision to Admit Stat 06/25/21 00:15 Consult Cardiology Routine Assessment & Plan (1) Dizziness: (2) Hypertension: (3) Mitral regurgitation: 1. Bradycardia: Her bradycardia is related to frequent atrial ectopy. She seems to have a pattern of atrial bigeminy and blocked PACs on occasion. I do not think this is a new phenomenon for the patient. It does not appear that verapamil has attenuated the degree of atrial ectopy and given her lower extremity edema, perhaps a an alternative antihypertensive should be chosen. She was on beta-taylor as an outpatient transiently, but reported some vague symptoms and this was discontinued in favor of returning to to verapamil. I do not think there is an immediate indication for a pacemaker. It is likely that the patient's dizziness was a combination of volume depletion and arrhythmia. I think if she is ambulatory without symptoms as she has suggested earlier today and discharged without verapamil and follow-up in our clinic would be reasonable. 2. Hypertension: Verapamil was being used as an antihypertensive. Amlodipine had been tried previously. She reported worsening lower extremity edema with amlodipine, but this edema does not appear to have resolved with a return to verapamil. I think trying amlodipine again would be a good option as an alternative to verapamil. This would not produce any bradycardia. Alternatively an alpha antagonist would be reasonable. This is less desirable with her aortic dimensions. the addition of spironolactone could also be entertained. 3. Lower extremity edema: Despite aggressive diuresis she continues to have an element of lower extremity edema. Likely also related to venous insufficiency. She does employ conservative measures at home and in fact this morning after being in bed most of the evening with her legs elevated the edema is improved. 4. Mitral regurgitation: Mild. 5. Aortic root and ascending aortic dilation: This is very mild on her echocardiogram. Ideally, she would be on beta-blockade, but I think we will wait to reinstitute beta-taylor to see if she has recurrent symptoms over the next few weeks. 6. Frequent atrial ectopy: She appears to have periods of atrial bigeminy. This result some blocked PACs on occasion and a ventricular rate in the 30s. However, this tends to occur when she is relaxing and likely represents higher degrees of vagal tone resulting in worse AV james conduction. I think with activity her conduction improves and she did not report symptoms this morning with ambulation. Calcium channel blockers did not seem to have any effect on this ectopy. Beta-blockers could be tried we may attempt this in the outpatient setting once her symptoms resolved. Alternatively an antiarrhythmic if she is truly symptomatic. However, without symptoms there is no concern regarding this frequent ectopy ( Although it is known to be a precursor for development of atrial fibrillation). Hospital Course (1) Dizziness: (2) Symptomatic bradycardia: (3) Acute hyponatremia: (4) Hypokalemia: (5) Hypertension: Patient sent to the hospital by ED for symptomatic dizziness with reported heart rate in the 30s. Upon presentation to the ED, she was bradycardic at 52. Noted to be on verapamil and atenolol. In addition, her work-up showed hyponatremia of 126 with a potassium of 2.9. She admitted that her PCP recently started her on Lasix in addition to her hydrochlorothiazide for some mild swelling of the bilateral lower extremities. The rest of her work-up was unremarkable. Troponin was negative. Patient was gently hydrated with NSS and her potassium repleted. Verapamil and atenolol stopped. In addition, her Lasix and hydrochlorothiazide were stopped (as likely contributing to her hyponatremia and hypokalemia) With medication changes, patient's heart rate normalized (60s to 70s) and her sodium/potassium improved. Sodium currently 130. Potassium 3.6. She denies any dizziness. She has been ambulating without issues. Decision was made to keep patient in the hospital for monitoring; however, she has remained in the ED awaiting a bed. Despite this, she has received treatment and has responded favorably. She has been seen by cardiology who agrees that her dizziness was likely multifactorial (from hyponatremia and some bradycardia both have since resolved). At this point time, patient is medically and hemodynamically stable for d ischarge to home. She should have an updated echocardiogram and possibly a Holter monitor but both of these can be facilitated as an outpatient as she is no longer bradycardic. In addition, her sodium is acceptable at 130 and her potassium is now normal. Patient will be discharged. She is to stop verapamil, atenolol, Lasix, and hydrochlorothiazide. She should have an echocardiogram to assess LV function. Edema of her lower extremities is likely more from vascular disease rather than CHF. This can be managed with compression stockings. Since we are discontinuing multiple blood pressure controlling medications, I fear that she will become hypertensive. In attempts to avoid calcium channel blockers and beta-blockade's, will start hydralazine. This can be titrated by PCP as an outpatient. Patient should follow-up with her PCP within 7 to 10 days. She should return to the ED for any new or worsening symptoms. Total Time Total Time Spent Total Time Spent (In Minutes): 60 Discharge Plan Discharge Items Patient Disposition: Home - Self-Care Reason For Visit: ARRYTHMIA, ELECTROLYTE DISTURBANCES Discharge Diagnosis: 1. Bradycardia- resolved 2. Hyponatremia- improved 3. Hypokalemia- replaced and resolved 4. Dizziness- resolved (likely secondary to #1 and 2) Condition on Discharge: Good Activity: Resume your previous activity Exercise Comment: no driving until cleared by PCP Non-emergency contact: Primary Care Provider Call non-emergency contact if: you have any medication questions Follow-up/Referrals: Chalo Doran DO [Primary Care Provider] - Diet: Low Potassium (2gm) Addtl Attending Provider Instructions: - you came to the hospital with dizziness (that was likely related to a low heart rate and low sodium level) - Your low Heart rate was reported to be in the 30's prior to coming to the ED but has since improved (60-80) with discontinuation of your Atenolol and Verapamil (which you take for blood pressure control but inadvertently they do have an effect on your heart rate) - In addition, your sodium and potassium were low (likely related to the lasix and HCTZ that you take-- for swelling and blood pressure) - since we are stopping your Verapamil, Atenolol, Lasix and Hydrochlorothiazide-- you will need something for blood pressure control. I have added Hydralazine to be taken twice a day. This may need to be further increased (at discretion of your PCP) as needed for blood pressure control - I would advise an echocardiogram and holter monitor (both of these are at the discretion and can be arranged by your PCP) - In addition, I would advise that you have repeat labs (BMP) at discretion of your PCP--> to follow up on your low sodium and potassium - Return to the ED for new or worsening symptoms Pending Studies at Discharge: No Stand-Alone Forms: My [facility] Medications and DC Order Prescriptions: New hydralazine 10 mg tablet 10 mg PO BID Qty: 60 RF: 0 Continued desonide 0.05 % cream 1 applic topical BID Qty: 60 RF: 2 pramipexole 0.25 mg tablet 0.25 mg PO BID 30 Days Qty: 60 RF: 5 Hold Instructions: Home Medication placed on hold at Doctor's office triamcinolone acetonide 0.1 % cream 1 applic topical DAILY PRN (Reason: legs) RF: 0 cholecalciferol (vitamin D3) 50 mcg (2,000 unit) capsule 2,000 unit PO QAM RF: 0 losartan 100 mg tablet 100 mg PO QAM RF: 0 oxybutynin chloride 5 mg tablet 5 mg PO PM RF: 0 PreserVision AREDS [id number] alwq-gw-znhv capsule 1 cap PO BID RF: 0 cyanocobalamin (vitamin B-12) 500 mcg tablet 500 mcg PO QAM RF: 0 Lacto.acidophilus-Bif.animalis 31 billion cell capsule 1 cap PO QAM RF: 0 zinc gluconate 50 mg tablet 50 mg PO QAM RF: 0 aspirin [Dorinda Aspirin] 325 mg Tablet 325 mg PO Q6H PRN (Reason: Headache) RF: 0 tramadol 50 mg tablet 50 mg PO BID RF: 0 Discontinued hydrochlorothiazide 25 mg tablet 25 mg PO QAM RF: 0 furosemide 40 mg tablet 40 mg PO BID RF: 0 atenolol 25 mg tablet 25 mg PO QAM RF: 0 potassium chloride 10 mEq capsule, extended release 10 meq PO QAM RF: 0 verapamil 240 mg capsule,ext rel. pellets 24 hr 240 mg PO PM RF: 0 Discharge Orders: Discharge Order (Routine); Ordered 06/25/21 Ordered By: Kimberly Barboza Admission Data Admit Date/Time: 06/24/21 19:24 Attending Provider: Israel Phillips Admit Provider: Rao Correa Primary Care Provider: Chalo Doran Other Providers: Carlo Sharp ; Rao Correa Other Interventions: Discharge Summary Assessment (RN) Last Done: 06/25/21 15:36 Supervising Physician Co-Signing Physician Notes Patient seen and examined on the day of discharge. I agree with the discharge summary by Kimberly BANEGAS. I have reviewed the chart including labs, imaging and plans for discharge. patient placed on observation, was in the ED inpatient unit because beds not available she was treated for bradycardia, hyponatremia she is feeling much better, no issues ambulating, feels strong enough to go home will get echo, Holter as outpatient, appreciate cardiology input - Bradycardia: stopped both beta taylor and CCB, HR normal, feels better likely get Holter as outpatient - Hyponatremia: could have been due to HCTZ, this is stopped Na up to near normal, feeling fine [place] [address] OBS Care - Discharge Patient Type Established Diagnoses Dizziness R42 Symptomatic bradycardia R00.1 Acute hyponatremia E87.1 Hypokalemia E87.6 Hypertension I10 Time Spent (min) 60
== END 2021-06-25 16:25 | disposition home or self-care (01) | DRG 641 ==
LOC: ED 16:32 → EDINP 19:24 → SUATTDRO 19:24 → OBSVTOIN 19:24 → INTOOBSV 19:24 → EDINP 23:15

== ENCOUNTER 2023-08-18 12:46 | Inpatient (IN) ==
--- NOTE | 2023-08-18 14:34 | XRay Report ---
XR chest 1V not portable HISTORY: 88 years-old Female illness acute chest pain with nausea COMPARISON: 09/10/2022 TECHNIQUE: AP view of the chest FINDINGS: Cardiac silhouette is enlarged. Lung apices are partially obscured by the patient's chin. No pneumoth orax, pleural effusion or overt pulmonary edema. Mild subsegmental bibasilar opacities. Degenerative changes of the spine and left shoulder. Right shoulder arthroplasty. IMPRESSION: 1. Cardiomegaly without acute process. 2. Mild bibasilar atelectasis. ACT 112: Negative or not required by law. The above report was generated using voice recognition software. It may contain grammatical, syntax o r spelling errors. Electronically signed by: Mendoza Boyer M.D. 08/18/2023 2:32 PM
--- NOTE | 2023-08-18 14:36 | XRay Report ---
XR ankle RT min 3V routine HISTORY: 88 years-old Female Ankle trauma, no prior imaging soft tissue injury of the right ankle COMPARISON: 11/21/2020 TECHNIQUE: 3 views of the right ankle FINDINGS: There is prominent diffuse soft tissue swelling. Mild to moderate osteoarthritis. Degenerative spurri ng of the calcaneus. No acute fracture, dislocation, radiopaque foreign body or osseous erosion. IMPRESSION: Soft tissue swelling without acute osseous abnormality. ACT 112: Negative or not required by law. The above report was generated using voice recognition software. It may contain grammatical, syntax o r spelling errors. Electronically signed by: Mendoza Boyer M.D. 08/18/2023 2:35 PM
--- NOTE | 2023-08-18 16:01 | Electrocardiogram Report ---
Test Reason : Blood Pressure : / mmHG Vent. Rate : 092 BPM Atrial Rate : 092 BPM P-R Int : 232 ms QRS Dur : 104 ms QT Int : 364 ms P-R-T Axes : 068 055 -17 degrees QTc Int : 450 ms Sinus rhythm with 1st degree A-V block with Premature atrial complexes Incomplete right bundle branch block Abnormal ECG When compared with ECG of 10-SEP-2022 12:23, Premature atrial complexes are now Present T wave inversion now evident in Lateral leads Confirmed by Reji Álvarez ([id number]) on 08/18/2023 4:01:27 PM Referred By: Confirmed By:Reji Álvarez
[2023-08-18 16:04] LABS: Hematocrit (blood only) 35.9 % (37.0-47.0); Hemoglobin 12.4 g/dl (12.0-16.0); Mean Corpuscular Hemoglobin 30.3 pg (25.0-34.0); Mean Corpuscular Hgb Conc 34.5 g/dL (32.0-36.0); Mean Corpuscular Volume 87.8 fL (80.0-100.0); Mean Platelet Volume 9.1 fL (9.4-12.4); Platelet Count 217 K/uL (130-400); RDW Coefficient of Variation 14.7 % (11.5-14.5); RDW Standard Deviation 47.4 fL (36.4-46.3); Red Blood Count 4.09 M/uL (4.20-5.40); White Blood Count 17.75 K/ul (4.8-10.8)
[2023-08-18 16:20] LABS: Alanine Aminotransferase 28 U/L (7-52); Albumin Globulin Ratio 1.3 (0.9-2); Albumin Level 4.1 gm/dl (3.4-5.0); Alkaline Phosphatase 66 U/L (34-104); Anion Gap 6 (3-11); Aspartate Aminotransferase 27 U/L (13-39); BUN Creatinine Ratio 29.6 (10-20); Bilirubin,Total 0.7 mg/dl (0.2-1.0); Blood Urea Nitrogen 29 mg/dl (6-23); Calcium 10.2 mg/dl (8.6-10.3); Carbon Dioxide 25 mmol/L (21-32); Chloride 99 mmol/L (98-107); Est GFR (African American) 59.7 ml/min; Est GFR (Non-African American) 51.5 ml/min; Globulin 3.2 gm/dl (2.5-4.0); Glucose 119 mg/dl (70-99(Fasting)); Potassium 4.3 mmol/L (3.5-5.1); Sodium 130 mmol/L (136-145); Total Protein 7.3 gm/dl (6.0-8.3)
[2023-08-18 16:22] LABS: Basophils # (auto) 0.03 K/uL (0.00-0.20); Basophils % (auto) 0.2 %; Immature Granulocytes # (auto) 0.11 K/uL (0.01-0.20); Immature Granulocytes % (auto) 0.6 %; Lymphocytes % (auto) 2.3 %; Monocytes # (auto) 0.56 K/uL (0.11-0.59); Monocytes % (auto) 3.2 %; Neutrophils # (auto) 16.65 K/uL (1.40-6.50); Neutrophils % (auto) 93.7 %
[2023-08-18] MEDS ORDERED: VANCOMYCIN HCL 2,750 MG in SODIUM CHLORIDE 0.9% 500 ML IV ONE (20:12)
[2023-08-18] MEDS ORDERED: VANCOMYCIN CONSULT ACTIVE PRN (20:12)
--- NOTE | 2023-08-18 20:17 | Emergency Department Note ---
Impression & Plan Cellulitis of leg, right ED Provider Note NAME: VLADIMIR AWAD AGE: 88 SEX: F : 1935 ARRIVES VIA: Ambulance INFORMANT: Patient, ED PROVIDER(S): Glendy Brennan MD CHIEF COMPLAINT: Leg pain/swelling HPI: This is a 88-year-old female presenting for right lower extremity swelling. Patient states that she has had chronic left shoulder pain. Today she was attempting to go to her MRI which was scheduled outpatient. Upon walking towards the car, she collapsed from inability to walk/pain in her right lower extremity. She notes that the swelling in her right leg has been getting worse since about , 5 days ago. She notes there is also been red during this time as well. Extremely painful to touch. She never had this happen before. She has noted bilateral lower extremity swelling for the past few months to years without previous work-up. She notes no fevers, chills, nausea or vomiting. No diarrhea, chest pain, shortness of breath. ROS: See above HPI for pertinent positives & negatives. A total of 10 systems reviewed and were otherwise negative. PAST MEDICAL HISTORY: See Below PAST SURGICAL HISTORY: See Below FAMILY HISTORY: See Below SOCIAL HISTORY: See Below HOME MEDICATIONS: See Below ALLERGIES: See Below VITALS: See Below PHYSICAL EXAMINATION: General: resting comfortably in no acute distress Head: Normocephalic and atraumatic Eyes: Normal inspection, extraocular muscles intact, no conjunctival pallor Ear, nose, throat: Normal external exam Neck: Normal range of motion Respiratory: Patient is in no respiratory distress, lungs clear to auscultation bilaterally Cardiovascular: RRR without murmur appreciated GI: soft, nontender, no guarding or rebound Extremities: Bilateral lower extremity swelling, significant right lower extremity swelling erythema, tenderness to palpation, intermediate fluctuance Neuro: The patient awake and alert, appropriately conversive,no focal decifits Skin: Warm, dry, and intact MEDICAL DECISION MAKING: This is an 88-year-old female presenting for eval of treatment swelling. Patient's physical and appears consistent with extensive cellulitis of the right lower extremity. At this time do not have clear signs of gangrene. Her x-rays reviewed showing no gas. She will require IV antibiotics. Patient has no previous history of DVT with pitting edema to bilateral tremors, lower concern for this. Otherwise patient does have crackles at the bases concerning for CHF. her chest x-ray interpreted independently by me showing cardiomegaly, atelectasis bilaterally. Patient vital signs reviewed showing leukocytosis 17, consistent with her likely cellulitis. Patient made to hospitalist service for cellulitis of the right lower extremity requiring IV antibiotics Triage Nursing notes reviewed. Prior medical records reviewed Vital Signs: reviewed and remarkable for no significant abnormalities Differential diagnosis: Cellulitis, necrotizing fasciitis, DVT ER treatment provided: See below Diagnostics interpreted by me: ECG: ECG independently interpreted by me with normal sinus rhythm, rate of 92, normal axis, first-degree AV block, KS 232,, incomplete right bundle branch block, QRS 104,, normal QTc, no ST segment elevations consistent with STEMI criteria, T wave inversions in V3 through V6 and III and aVF Cardiac Monitoring: An order was placed for continuous cardiac monitoring. The monitor shows a rate of 74 with sinus rhythm. Laboratory studies: As stated above and show below. Imaging studies: See below. Radiographic imaging was reviewed by myself Consultation(s): None Past Med/Surg History Medical History (Updated 08/18/23 @ 23:05 by Mynor Gustafson PA-C) Acute hyponatremia Dizziness Symptomatic bradycardia Impacted cerumen, bilateral Eczema of lower extremity Exertional dyspnea Frequency of urination and polyuria History of colon cancer, stage I HTN (hypertension) Surgical History History of cardiac cath (2013) History of tubal ligation (1970) History of shoulder surgery History of knee replacement (2012) History of colonoscopy History of cataract surgery (2009) left History of appendectomy (2012) Tubal ligation status History of colon surgery History of right shoulder replacement Total knee replacement status Family History Father Hypertension Cardiac arrest CHF (congestive heart failure) Mother Hypertension Cardiac arrest Cardiac disorder Stroke Sister Hypertension Stroke Aunt Stomach cancer Denies family history of Ovarian cancer Prostate cancer Myocardial infarction Breast cancer Bleeding disorder Colorectal cancer Social History Smoking Status: Never smoker Second Hand Exposure: No; Do You Dip or Chew Tobacco: No; Hx Alcohol Use: No Hx Substance Use: No Preferred Language: [place] Citizen Communication Ability: Effective Visual Impairment: No Limitations Hearing Ability: Hard of Hearing Beliefs That Will Affect Care: None marital status: Current Living Situation: Spouse current occupational status: retired Feels Safe at Home: Yes Childhood Exposure to Second-Hand Smoke: Yes Dental Care, Regularly: Yes Physical Activity Frequency: Does not Exercise Seatbelt Use: always Sunscreen Use: No Assistive Devices: Cane and Hearing Aid - Bilateral Allergies Allergies Allergy/AdvReac Type Severity Reaction Status Date / Time No Known Allergies Allergy Verified 08/18/23 21:45 Home Meds Home Medications Medication Instructions Recorded Confirmed cyanocobalamin (vitamin B-12) 500 500 mcg PO QAM 05/01/20 08/18/23 mcg tablet triamcinolone acetonide 0.1 % 1 applic topical DAILY PRN Skin 09/25/20 08/18/23 topical cream Irritation cholecalciferol (vitamin D3) 50 2,000 unit PO QAM 02/11/21 08/18/23 mcg (2,000 unit) capsule losartan 100 mg tablet 100 mg PO QAM 02/11/21 08/18/23 zinc gluconate 50 mg tablet 50 mg PO QAM 02/11/21 08/18/23 diphenhydramine HCl 25 mg tablet 25 mg PO HS PRN Sleep 07/16/21 08/18/23 (Benadryl Allergy) spironolactone 25 mg tablet 25 mg PO DAILY 07/16/21 08/18/23 escitalopram oxalate 10 mg tablet 10 mg PO DAILY PRN Anxiety 09/24/22 08/18/23 aspirin 325 mg tablet 325 mg PO BID PRN Pain 08/18/23 08/18/23 desonide 0.05 % topical cream 1 applic topical BID PRN Skin 08/18/23 08/18/23 Irritation diclofenac sodium 1 % topical gel 2 g topical QID PRN Pain 08/18/23 08/18/23 famotidine 10 mg tablet 10 mg PO DAILY PRN 08/18/23 08/18/23 HEARTBURN/INDIGESTION hydralazine 25 mg tablet 25 mg PO TID 08/18/23 08/18/23 magnesium oxide 400 mg PO DAILY 08/18/23 08/18/23 [id number] 4 mg-folic acid 1 tab PO QAM 08/18/23 08/18/23 200 mcg-vit K 25 mcg-lutein tablet (Centrum Minis Women 50 Plus) psyllium husk 0.52 gram capsule 1.04 g PO DAILY 08/18/23 08/18/23 urea 20 % topical cream 1 applic topical BID PRN NEEDED 08/18/23 08/18/23 PER PT'S LIST Previous Rx's Medication Instructions Recorded ondansetron 4 mg disintegrating 4 mg PO Q6H PRN nausea and 09/10/22 tablet vomiting #14 tabs pramipexole 0.5 mg tablet 0.5 mg PO .COMPLEX 30 days #75 tabs 04/20/23 tramadol 50 mg tablet 50 mg PO TID 30 days #90 tabs 05/12/23 Results & Data (ED) Vital Signs Vital Signs - 24 hr 08/18/23 12:50 08/18/23 18:04 08/18/23 19:35 Temperature 37.5 C Temperature Source Oral Pulse Rate 94 H Pulse Rate [Right Finger] 82 Pulse Rhythm Regular Respiratory Rate 20 18 Respiratory Effort / Characteristics Non-Labored Spontaneous Non-Labored Respiratory Depth Normal Normal Blood Pressure 149/81 H Blood Pressure [Left Arm] 142/80 H Blood Pressure [Right Arm] 137/79 Blood Pressure Mean 103 Blood Pressure Mean [Left Arm] 100 Blood Pressure Mean [Right Arm] 98 Blood Pressure Position [Left Arm] Sitting Pulse Oximetry 97 95 Oxygen Delivery Method Room Air Room Air Sepsis Recent Fever Within 48 Hours No Sepsis New/Unexplained Change in Mental Status No Sepsis Action Taken by Nursing No Action Required 08/18/23 21:06 08/18/23 21:30 08/18/23 22:00 Temperature Temperature Source Pulse Rate 81 79 83 Pulse Rate [Right Finger] Pulse Rhythm Respiratory Rate 19 19 Respiratory Effort / Characteristics Respiratory Depth Blood Pressure 133/72 114/66 Blood Pressure [Left Arm] Blood Pressure [Right Arm] Blood Pressure Mean 92 82 Blood Pressure Mean [Left Arm] Blood Pressure Mean [Right Arm] Blood Pressure Position [Left Arm] Pulse Oximetry 95 94 Oxygen Delivery Method Room Air Room Air Sepsis Recent Fever Within 48 Hours Sepsis New/Unexplained Change in Mental Status Sepsis Action Taken by Nursing 08/18/23 22:30 Temperature Temperature Source Pulse Rate 74 Pulse Rate [Right Finger] Pulse Rhythm Respiratory Rate 21 Respiratory Effort / Characteristics Respiratory Depth Blood Pressure 119/74 Blood Pressure [Left Arm] Blood Pressure [Right Arm] Blood Pressure Mean 89 Blood Pressure Mean [Left Arm] Blood Pressure Mean [Right Arm] Blood Pressure Position [Left Arm] Pulse Oximetry 95 Oxygen Delivery Method Room Air Sepsis Recent Fever Within 48 Hours Sepsis New/Unexplained Change in Mental Status Sepsis Action Taken by Nursing Laboratory Data 08/18/23 15:52 08/18/23 15:52 Lab Results 08/18/23 08/18/23 Range/Units 15:52 20:28 WBC 17.75 H (4.8-10.8) K/ul RBC 4.09 L (4.20-5.40) M/uL Hgb 12.4 (12.0-16.0) g/dl Hct 35.9 L (37.0-47.0) % MCV 87.8 (80.0-100.0) fL MCH 30.3 (25.0-34.0) pg MCHC 34.5 (32.0-36.0) g/dL RDW Std Deviation 47.4 H (36.4-46.3) fL RDW Coeff of Xavier 14.7 H (11.5-14.5) % Plt Count 217 (130-400) K/uL MPV 9.1 L (9.4-12.4) fL Immature Gran % (Auto) 0.6 % Neut % (Auto) 93.7 % Lymph % (Auto) 2.3 % [place] % (Auto) 3.2 % Eos % (Auto) 0.0 % Baso % (Auto) 0.2 % Neut # (Auto) 16.65 H (1.40-6.50) K/uL Lymph # (Auto) 0.40 L (1.20-3.40) K/uL [place] # (Auto) 0.56 (0.11-0.59) K/uL Eos # (Auto) 0.00 (0.00-0.50) K/uL Baso # (Auto) 0.03 (0.00-0.20) K/uL Immature Gran # (Auto) 0.11 (0.01-0.20) K/uL Sodium 130 L (136-145) mmol/L Potassium 4.3 (3.5-5.1) mmol/L Chloride 99 (98-107) mmol/L Carbon Dioxide 25 (21-32) mmol/L Anion Gap 6 (3-11) BUN 29 H (6-23) mg/dl Creatinine 0.98 (0.6-1.2) mg/dl Est Cr Clr Drug Dosing Not Reportable Est GFR ( Amer) 59.7 ml/min Est GFR (Non-Af Amer) 51.5 ml/min BUN/Creatinine Ratio 29.6 H (10-20) Glucose 119 H (70-99(Fasting)) mg/dl Calcium 10.2 (8.6-10.3) mg/dl Total Bilirubin 0.7 (0.2-1.0) mg/dl AST 27 (13-39) U/L ALT 28 (7-52) U/L Alkaline Phosphatase 66 (34-104) U/L B-Natriuretic Peptide 266 H (0-100) pg/ml Total Protein 7.3 (6.0-8.3) gm/dl Albumin 4.1 (3.4-5.0) gm/dl Globulin 3.2 (2.5-4.0) gm/dl Albumin/Globulin Ratio 1.3 (0.9-2) Administered Medications Vancomycin HCl 2,250 mg/ (Sodium Chloride) 545 mls @ 200 mls/hr IV ONE ONE Stop: 08/18/23 23:43 Last Admin: 08/18/23 21:24 Dose: 200 mls/hr Documented By: [facility] Imaging Data Radiologist's Impression: Ankle X-Ray 08/18/23 12:56 XR ankle RT min 3V routine HISTORY: 88 years-old Female Ankle trauma, no prior imaging soft tissue injury of the right ankle COMPARISON: 11/21/2020 TECHNIQUE: 3 views of the right ankle FINDINGS: There is prominent diffuse soft tissue swelling. Mild to moderate osteoarthritis. Degenerative spurring of the calcaneus. No acute fracture, dislocation, radiopaque foreign body or osseous erosion. IMPRESSION: Soft tissue swelling without acute osseous abnormality. ACT 112: Negative or not required by law. The above report was generated using voice recognition software. It may contain grammatical, syntax or spelling errors. Electronically signed by: Mendoza Boyer M.D. 08/18/2023 2:35 PM Chest X-Ray 08/18/23 12:57 XR chest 1V not portable HISTORY: 88 years-old Female illness acute chest pain with nausea COMPARISON: 09/10/2022 TECHNIQUE: AP view of the chest FINDINGS: Cardiac silhouette is enlarged. Lung apices are partially obscured by the patient's chin. No pneumothorax, pleural effusion or overt pulmonary edema. Mild subsegmental bibasilar opacities. Degenerative changes of the spine and left shoulder. Right shoulder arthroplasty. IMPRESSION: 1. Cardiomegaly without acute process. 2. Mild bibasilar atelectasis. ACT 112: Negative or not required by law. The above report was generated using voice recognition software. It may contain grammatical, syntax or spelling errors. Electronically signed by: Mendoza Boyer M.D. 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 diphenhydramine HCl [Benadryl Allergy] 25 mg tablet 25 mg PO HS PRN (Reason: Sleep) escitalopram oxalate 10 mg tablet 10 mg PO DAILY PRN (Reason: Anxiety) triamcinolone acetonide 0.1 % cream 1 applic topical DAILY PRN (Reason: Skin Irritation) cholecalciferol (vitamin D3) 50 mcg (2,000 unit) capsule 2,000 unit PO QAM losartan 100 mg tablet 100 mg PO QAM spironolactone 25 mg tablet 25 mg PO DAILY pramipexole 0.5 mg tablet 0.5 mg PO .COMPLEX 30 Days Qty: 75 11RF Hold Instructions: Home Medication placed on hold at Doctor's office Rx Instructions: 0.5 mg orally ; take 1 at noon and 1 1/2 at 6pm cyanocobalamin (vitamin B-12) 500 mcg tablet 500 mcg PO QAM zinc gluconate 50 mg tablet 50 mg PO QAM ondansetron 4 mg tablet,disintegrating 4 mg PO Q6H PRN (Reason: nausea and vomiting) Qty: 14 0RF desonide 0.05 % Cream 1 applic TOPICAL BID PRN (Reason: Skin Irritation) famotidine 10 mg Tablet 10 mg PO DAILY PRN (Reason: HEARTBURN/INDIGESTION) aspirin 325 mg Tablet 325 mg PO BID PRN (Reason: Pain) urea 20 % Cream 1 applic TOPICAL BID PRN (Reason: NEEDED PER PT'S LIST) hydralazine 25 mg tablet 25 mg PO TID psyllium husk [Metamucil] 0.52 gram Capsule 1.04 g PO DAILY diclofenac sodium [Voltaren] 1 % Gel 2 g TOPICAL QID PRN (Reason: Pain) magnesium oxide 400 mg magnesium Tablet 400 mg PO DAILY Centrum Minis Women 50 Plus 4 mg iron-200 mcg-25 mcg Tablet 1 tab PO QAM Referrals Referrals: Makayla Adan [Primary Care Provider] -
[2023-08-18] MEDS ORDERED: VANCOMYCIN HCL 2,250 MG in SODIUM CHLORIDE 0.9% 500 ML IV ONE (21:00)
--- NOTE | 2023-08-18 21:47 | History & Physical Report ---
Date of Service August 18, 2023 Assessment & Plan (1) Cellulitis of right ankle: Plan: Clinically, swollen/erythematous RLE; worsening since 08/13 Hx of LE edema likely secondary to venous insufficiency Right ankle x-ray revealed soft tissue swelling without acute osseous abnormality Leukocytosis at 17.75 with neutrophil predominance Afebrile on arrival Blood cultures pending Vancomycin started in the ED Continue vancomycin while inpatient Acetaminophen as needed for pain, if fever develops Venous Doppler RLE pending Lactate pending ESR/CRP pending PT/OT consult for generalized weakness A.m. CBC, BMP, Mag (2) Hypertension: Plan: BP 149/81 on arrival Continue losartan (3) Nausea: Plan: Patient endorses dry heaving started in the ED; no vomiting Zofran as needed for nausea; QTc 450 (4) Idiopathic polyneuropathy: Plan: Continue tramadol (5) Hyponatremia: Plan: Na 130 on arrival; may be chronic Correct if further serum Na decline Consider fluid restriction Continue to monitor with a.m. BMP (6) Mitral regurgitation: Plan: Stable Continue to monitor (7) Dilated aortic root: Plan: Beta-blockers previously discontinued due to adverse effects Plan Disposition: Admit to [facility] Full code AHA diet VTE PPx: Heparin 5000 units SQ q12h History of Present Illness Chief Complaint: Ankle pain Primary Care Provider: Makayla Adan Amina is an 88-year-old female with PMH HTN, arthritis, MR, and spinal stenosis. She presented to the ED with generalized weakness, and worsening right ankle pain x 4 days (since , 08/13). Bilateral leg swelling on arrival with RLE red/swollen. She endorses constant pain at the top of the right foot, right heel, and right medial ankle. She rates the pain 5/10 at present, but 10/10 at worst. No radiation. No prior experiences like this. She denies history of DVT/PE. She reports she is not on anticoagulation. No pain in the LLE. She denies fevers over the past week. She lives with her (Ed), and reports that she did not sustain a ground-level fall today, but rather sat down and was unable to stand back up. She denies history of falls. She was originally scheduled to have a neck MRI today for left shoulder pain; ongoing left shoulder pain for which she takes tramadol. Mild hypertension; otherwise, vitals stable at time of admission. ED course: Vancomycin 2250 mg ROS: Patient endorses nausea / dry heaves (that started shortly after arriving in the ED), left shoulder pain, right ankle pain, nocturia (ongoing), and some urinary incontinence at night. Patient denies fevers, chills, GOODE, dizziness, lightheadedness, CP, pleuritic CP, SOB, abdominal pain, vomiting, diarrhea, blood in stool/urine, dysuria, burning with urination, or numbness/tingling in UEs or LEs. Allergies Allergy/AdvReac Type Severity Reaction Status Date / Time No Known Allergies Allergy Verified 08/18/23 21:45 Home Medications Medication Instructions Recorded Confirmed Type cyanocobalamin (vitamin B-12) 500 500 mcg PO QAM 05/01/20 08/18/23 History mcg tablet triamcinolone acetonide 0.1 % 1 applic topical DAILY PRN Skin 09/25/20 08/18/23 History topical cream Irritation cholecalciferol (vitamin D3) 50 2,000 unit PO QAM 02/11/21 08/18/23 History mcg (2,000 unit) capsule losartan 100 mg tablet 100 mg PO QAM 02/11/21 08/18/23 History zinc gluconate 50 mg tablet 50 mg PO QAM 02/11/21 08/18/23 History diphenhydramine HCl 25 mg tablet 25 mg PO HS PRN Sleep 07/16/21 08/18/23 History (Benadryl Allergy) spironolactone 25 mg tablet 25 mg PO DAILY 07/16/21 08/18/23 History ondansetron 4 mg disintegrating 4 mg PO Q6H PRN nausea and 09/10/22 08/18/23 Rx tablet vomiting #14 tabs escitalopram oxalate 10 mg tablet 10 mg PO DAILY PRN Anxiety 09/24/22 08/18/23 History pramipexole 0.5 mg tablet 0.5 mg PO .COMPLEX 30 days #75 tabs 04/20/23 08/18/23 Rx tramadol 50 mg tablet 50 mg PO TID 30 days #90 tabs 05/12/23 08/18/23 Rx aspirin 325 mg tablet 325 mg PO BID PRN Pain 08/18/23 08/18/23 History desonide 0.05 % topical cream 1 applic topical BID PRN Skin 08/18/23 08/18/23 History Irritation diclofenac sodium 1 % topical gel 2 g topical QID PRN Pain 08/18/23 08/18/23 History famotidine 10 mg tablet 10 mg PO DAILY PRN 08/18/23 08/18/23 History HEARTBURN/INDIGESTION hydralazine 25 mg tablet 25 mg PO TID 08/18/23 08/18/23 History magnesium oxide 400 mg PO DAILY 08/18/23 08/18/23 History [id number] 4 mg-folic acid 1 tab PO QAM 08/18/23 08/18/23 History 200 mcg-vit K 25 mcg-lutein tablet (Centrum Minis Women 50 Plus) psyllium husk 0.52 gram capsule 1.04 g PO DAILY 08/18/23 08/18/23 History urea 20 % topical cream 1 applic topical BID PRN NEEDED 08/18/23 08/18/23 History PER PT'S LIST Past Med/Surg History Medical History (Updated 08/18/23 @ 23:05 by Mynor Gustafson PA-C) Acute hyponatremia Dizziness Symptomatic bradycardia Impacted cerumen, bilateral Eczema of lower extremity Exertional dyspnea Frequency of urination and polyuria History of colon cancer, stage I HTN (hypertension) Surgical History History of cardiac cath (2013) History of tubal ligation (1970) History of shoulder surgery History of knee replacement (2012) History of colonoscopy History of cataract surgery (2009) left History of appendectomy (2012) Tubal ligation status History of colon surgery History of right shoulder replacement Total knee replacement status Family History Father Hypertension Cardiac arrest CHF (congestive heart failure) Mother Hypertension Cardiac arrest Cardiac disorder Stroke Sister Hypertension Stroke Aunt Stomach cancer Denies family history of Ovarian cancer Prostate cancer Myocardial infarction Breast cancer Bleeding disorder Colorectal cancer Social History Smoking Status: Never smoker Second Hand Exposure: No; Do You Dip or Chew Tobacco: No; Hx Alcohol Use: No Hx Substance Use: No Preferred Language: Persian Communication Ability: Effective Visual Impairment: No Limitations Hearing Ability: Hard of Hearing Coffee Taster Required: No Beliefs That Will Affect Care: None marital status: Current Living Situation: Spouse current occupational status: retired Other Information That Helps Us Care for You: Yes Feels Safe at Home: Yes Safety Concerns: Feels Safe At This Time Childhood Exposure to Second-Hand Smoke: Yes Dental Care, Regularly: Yes Physical Activity Frequency: Does not Exercise Seatbelt Use: always Sunscreen Use: No Assistive Devices: Cane Review of Systems Review of Systems: See HPI above Physical Exam Physical Exam: General: no acute distress; lethargic; well-nourished; cooperative HEENT: normocephalic, atraumatic; no scleral icterus; PERRLA w/ EOMs intact; moist mucus membrane; vision and hearing intact Neck: supple; no lymphadenopathy; trachea midline Skin: warm, dry without signs of tenting; no cyanosis CV: chest wall NTP; RRR; S1/S2 normal; 2/6 diastolic murmur noted at the second ICS MCL; pulses intact and symmetric at radial, DP, and PT Lungs: no acute respiratory distress; symmetrical chest wall expansion; clear breath sounds across all lung sanchez w/o adventitious sounds; no wheezing ABD: Soft, NTP; BS present; no rebound/guarding; no distention RLE: Erythematous; warm to touch; weeping at the R medial malleolus; +1 gross pitting edema and scaling; tender to palpation; patient is unable to bend right ankle LLE: Nonerythematous; +1 pitting edema extending to the knee; tender to palpation MSK: no tics or fasciculations; patient demonstrates ability to wiggle toes Neuro: A&Ox3; normal mood and affect; fluent speech; no focal deficits; sensation diminished in the RLE extending to the knee Results & Data Results & Data Vital Signs (Past 12 Hours) Vital Signs Temp Pulse Pulse Resp BP BP BP 08/18/23 21:06 81 08/18/23 19:35 82 18 137/79 08/18/23 18:04 142/80 H 08/18/23 12:50 37.5 C 94 H 20 149/81 H Pulse Ox O2 Del Method 08/18/23 21:06 08/18/23 19:35 95 Room Air 08/18/23 18:04 08/18/23 12:50 97 Room Air Laboratory Results Abnormal lab results 08/18/23 08/18/23 Range/Units 15:52 20:28 WBC 17.75 H (4.8-10.8) K/ul RBC 4.09 L (4.20-5.40) M/uL Hct 35.9 L (37.0-47.0) % RDW Std Deviation 47.4 H (36.4-46.3) fL RDW Coeff of Xavier 14.7 H (11.5-14.5) % MPV 9.1 L (9.4-12.4) fL Neut # (Auto) 16.65 H (1.40-6.50) K/uL Lymph # (Auto) 0.40 L (1.20-3.40) K/uL Sodium 130 L (136-145) mmol/L BUN 29 H (6-23) mg/dl BUN/Creatinine Ratio 29.6 H (10-20) Glucose 119 H (70-99(Fasting)) mg/dl B-Natriuretic Peptide 266 H (0-100) pg/ml Diagnostic Findings Ankle X-Ray 08/18/23 12:56 XR ankle RT min 3V routine HISTORY: 88 years-old Female Ankle trauma, no prior imaging soft tissue injury of the right ankle COMPARISON: 11/21/2020 TECHNIQUE: 3 views of the right ankle FINDINGS: There is prominent diffuse soft tissue swelling. Mild to moderate osteoarthritis. Degenerative spurring of the calcaneus. No acute fracture, dislocation, radiopaque foreign body or osseous erosion. IMPRESSION: Soft tissue swelling without acute osseous abnormality. ACT 112: Negative or not required by law. The above report was generated using voice recognition software. It may contain grammatical, syntax or spelling errors. Electronically signed by: Mendoza Boyer M.D. 08/18/2023 2:35 PM Chest X-Ray 08/18/23 12:57 XR chest 1V not portable HISTORY: 88 years-old Female illness acute chest pain with nausea COMPARISON: 09/10/2022 TECHNIQUE: AP view of the chest FINDINGS: Cardiac silhouette is enlarged. Lung apices are partially obscured by the patient's chin. No pneumothorax, pleural effusion or overt pulmonary edema. Mild subsegmental bibasilar opacities. Degenerative changes of the spine and left shoulder. Right shoulder arthroplasty. IMPRESSION: 1. Cardiomegaly without acute process. 2. Mild bibasilar atelectasis. ACT 112: Negative or not required by law. The above report was generated using voice recognition software. It may contain grammatical, syntax or spelling errors. Electronically signed by: Mendoza Boyer M.D. 08/18/2023 2:32 PM Code Status & VTE Plan Code Status Full code VTE Prophylaxis Plan VTE Prophylaxis will be ordered: Yes Supervising Physician Co-Signing Physician Notes Attending addendum: I have physically seen this patient, have supervised the RAFAL's activities, and agree with the H&P unless as otherwise noted. Assessment and Plan: Right lower extremity cellulitis- Patient reports is worsening since 08/13 Underlying chronic venous insufficiency Blood culture and sensitivities pending Vancomycin IV begun in the ED and will continue Lower extremity venous Dopplers negative for DVT Idiopathic polyneuropathy/general debilitation- Continue tramadol Consult PT/OT Hypertension/hyponatremia- Continue losartan Repeat renal function panel in a.m. Remaining orders and notations as noted PG Care Time/CCT Total # of Minutes Spent Total Time Spent with Patient: Total time spent is greater than 50% in coordination of care (as documented) at patient's floor/unit and/or counseling patient: Coding [place] [address] INT INP/OBS CARE 2/55MIN Patient Type Established Medical Decision Making Moderate Complexity Diagnoses Cellulitis of right ankle L03.115 Hypertension I10 Nausea R11.0 Idiopathic polyneuropathy G60.9 Hyponatremia E87.1 Mitral regurgitation I34.0 Dilated aortic root I77.810
[2023-08-18 23:17] LABS: C Reactive Protein 20.62 mg/dl (0-0.5); Lactate Dehydrogenase 200 U/L (86-244)
[2023-08-18] MEDS ORDERED: ESCITALOPRAM OXALATE 10 MG TAB PO PRN (23:46)
[2023-08-18] MEDS ORDERED: ONDANSETRON INJ 2 MG/ML 2 ML VIAL IV PRN (23:46)
[2023-08-18] MEDS ORDERED: DICLOFENAC SOD 1% GEL 100 GM TUBE EXT PRN (23:46)
[2023-08-18] MEDS ORDERED: TRIAMCINOLONE ACET 0.1% CR 15 GM TUBE TOP PRN (23:46)
[2023-08-18] MEDS ORDERED: Patient's HEIGHT &/or WEIGHT Needed STA (23:58)
--- NOTE | 2023-08-19 01:14 | Ultrasound Report ---
Exam(s): US VENOUS RIGHT LOWER EXTREMITY EXAM: US Duplex Right Lower Extremity Veins CLINICAL HISTORY: Entire right calf red and swollen. TECHNIQUE: Real-time duplex ultrasound scan of the right lower extremity veins integrating B-mode two-dimensional vascular structure, Doppler spectral analysis, color flow Doppler imaging and compression. COMPARISON: No relevant prior studies available. FINDINGS: Deep veins: Unremarkable. No DVT in the visualized common femoral, femoral, proximal deep femoral or popliteal veins. The veins demonstrate normal color flow, are normally compressible, with normal phasic flow and/or augmentation response. The interrogated calf veins are patent. Superficial veins: Unremarkable. No thrombus in the saphenofemoral junction. Soft tissues: Subcutaneous edema noted at the right calf and popliteal fossa. No loculated fluid collection. No popliteal cyst. Lymph nodes: Right inguinal lymph node with a prominent cortex measuring up to 11 mm in short axis diameter. IMPRESSION: No evidence for deep vein thrombosis involving the right lower extremity. Subcutaneous edema from the popliteal fossa through the. No loculated fluid collection. Presumed reactive right inguinal lymph node. Electronically signed by: Rickie Jean MD 08/19/23 01:12 AM
[2023-08-19] MEDS: ACETAMINOPHEN 325 MG TAB PO PRN (02:32)
[2023-08-19 07:23] LABS: Basophils # (auto) 0.02 K/uL (0.00-0.20); Basophils % (auto) 0.2 %; Eosinophils # (auto) 0.01 K/uL (0.00-0.50); Eosinophils % (auto) 0.1 %; Hematocrit (blood only) 31.4 % (37.0-47.0); Hemoglobin 10.8 g/dl (12.0-16.0); Immature Granulocytes # (auto) 0.08 K/uL (0.01-0.20); Immature Granulocytes % (auto) 0.7 %; Lymphocytes # (auto) 0.65 K/uL (1.20-3.40); Lymphocytes % (auto) 5.6 %; Mean Corpuscular Hemoglobin 30.3 pg (25.0-34.0); Mean Corpuscular Hgb Conc 34.4 g/dL (32.0-36.0); Mean Corpuscular Volume 88.2 fL (80.0-100.0); Mean Platelet Volume 9.3 fL (9.4-12.4); Monocytes # (auto) 0.68 K/uL (0.11-0.59); Monocytes % (auto) 5.8 %; Neutrophils # (auto) 10.24 K/uL (1.40-6.50); Neutrophils % (auto) 87.6 %; Platelet Count 172 K/uL (130-400); RDW Coefficient of Variation 14.8 % (11.5-14.5); RDW Standard Deviation 48.5 fL (36.4-46.3); Red Blood Count 3.56 M/uL (4.20-5.40); White Blood Count 11.68 K/ul (4.8-10.8)
[2023-08-19 08:10] LABS: Potassium 3.8 mmol/L (3.5-5.1)
[2023-08-19 08:16] LABS: Creatinine Clr Calc Pharmacy 38.4 ml/min; Est GFR (African American) 60.4 ml/min; Est GFR (Non-African American) 52.1 ml/min
[2023-08-19] MEDS: hydrALAZINE HCL 25 MG TAB PO SCH ×3 (08:19→20:58)
[2023-08-19] MEDS: HEPARIN SOD 5,000 UNIT/0.5 ML VIAL SQ SCH ×2 (08:19→19:45)
[2023-08-19] MEDS: MAGNESIUM OXIDE 400 MG TAB PO SCH (08:20)
[2023-08-19] MEDS: PSYLLIUM or GUAR GUM FIBER POWDER PACKET PO SCH (08:20)
[2023-08-19] MEDS: SPIRONOLACTONE 25 MG TAB PO SCH (08:20)
[2023-08-19] MEDS: LOSARTAN POTASSIUM 50 MG TAB PO SCH (08:20)
[2023-08-19] MEDS: traMADol HCL 50 MG TABLET PO SCH ×3 (08:23→19:46)
--- NOTE | 2023-08-19 09:20 | Pharmacy Report ---
Pharmacy PK ABX Note - Date of Service August 19, 2023 - Assessment and Plan Assessment 88 year old F receiving Vancomycin for treatment of R ankle cellulitis. Blood cultures pending. Day #2 of antimicrobial therapy. Plan Vancomycin * Loading dose: 2250 mg (~27 mg/kg) IV x 1 given yesterday night. * Maintenance dose: 1000 mg (12 mg/kg) IV every 24 hours starting tonight * Regimen is predicted to achieve target AUC/JERRICA of 400-600 mg/L.hr * Random level ordered for: 08/20 @ 12:00 Pharmacy will continue to follow and will adjust dose/frequency as necessary. Thank you. Pharmacy has transitioned to AUC monitoring for vancomycin. AUC/JERRICA is the pre ferred PK/PD target and is associated with decreased risk of nephrotoxicity compared to traditional trough targets.
[2023-08-19] MEDS: PRAMIPEXOLE DIHYDROCHLO 0.5 MG TAB PO SCH ×2 (11:46→17:34)
--- NOTE | 2023-08-19 16:06 | Hospitalist Progress Note ---
Date of Service August 19, 2023 Assessment & Plan (1) Cellulitis of right leg: Plan: Started ~08/13 with progressive erythema over the majority of the right phillips. Venous doppler negative for DVT. Ankle films negative for joint effusion or fracture. ESR/CRP both elevated. No evidence of nec fasc clinically. remains on IV vancomycin with improved leukocytosis overnight. Chad demarkation lines at superior most border of cellulitic area and the inferior most border. Will check CT ankle/distal tib-fib -- r/o abscess, etc. (2) Hypertension: Plan: Continue hydralazine, losartan, aldactone. BPs acceptable. (3) Idiopathic polyneuropathy: Plan: Continue tramadol (4) Hyponatremia: Plan: Na 130 on arrival Today - 132 this is chronic going back several years will check urine osm, urine Na, and serum osm looks euvolemic today on exam (5) Mitral regurgitation: Plan: Stable Continue to monitor (6) Dilated aortic root: Plan: Beta-blockers previously discontinued due to adverse effects (7) Restless legs syndrome: Plan: Cont pramipexole per home dosing regimen 07/2023 Fe studies wnl Plan DVT proph - Heparin 5000 units SQ q12h Spoke with pt's daughter by phone - extensive update given Admission and Anticipated Discharge Date Admission Date: August 18, 2023 Subjective patient lying in bed comfortably complains of soreness in right leg below the knee down to the ankle she is able to flex/extend the right ankle without pain or discomfort however has chronic pain in L should - using a heat pack on it during the visit has generalized pain in other locations as well denies fevers denies chills eating/drinking ok Review of Systems Review of Systems: cv - no orthopnea, no PND, no chest pain pulm - no dyspnea or cough Physical Exam Physical Exam: gen - NAD, pleasant neck - no JVD mouth - MMM heart - RRR, s1 s2, 2/6 HUONG LSB lungs - CTA b/l abd - soft NT ND BS+ musculo - significant crepitus left shoulder with passive ROM; no warmth or erythema of joint. Right ankle - no joint effusion; non tender with flexion/extension of joint. NO heat/warmth/erythema of R ankle. skin - mod-severe cellulitis extending from tibial plateau region down to just above the R ankle; also with scattered patches of erythema closer to the right knee. Erythema also present over the R foot - dorsal surface. no crepitus with palpation of erythematous areas. the redness is near "fire-engine" red in color. just above R ankle - medial aspect - focal swelling, tiny (1-2mm) opening in this region but no drainage or foul odor. this area is tender to palpation. psych - a/o x 3 Results & Data Results & Data Vital Signs (Past 12 Hours) Vital Signs Temp Pulse Resp BP Pulse Ox O2 Del Method 08/19/23 13:37 37 C 16 119/71 97 Room Air 08/19/23 07:28 36.9 C 80 16 125/73 94 Room Air Laboratory Results Laboratory Results - last 24 hr 08/18/23 08/18/23 08/19/23 15:52 20:28 06:49 WBC 11.68 H RBC 3.56 L Hgb 10.8 L Hct 31.4 L MCV 88.2 MCH 30.3 MCHC 34.4 RDW Std Deviation 48.5 H RDW Coeff of Xavier 14.8 H Plt Count 172 MPV 9.3 L Immature Gran % (Auto) 0.6 0.7 Neut % (Auto) 93.7 87.6 Lymph % (Auto) 2.3 5.6 [place] % (Auto) 3.2 5.8 Eos % (Auto) 0.0 0.1 Baso % (Auto) 0.2 0.2 Neut # (Auto) 16.65 H 10.24 H Lymph # (Auto) 0.40 L 0.65 L [place] # (Auto) 0.56 0.68 H Eos # (Auto) 0.00 0.01 Baso # (Auto) 0.03 0.02 Immature Gran # (Auto) 0.11 0.08 ESR 57 H Sodium 130 L 132 L Potassium 4.3 3.8 Chloride 99 101 Carbon Dioxide 25 25 Anion Gap 6 6 BUN 29 H 33 H Creatinine 0.98 0.97 Est Cr Clr Drug Dosing Not Reportable 38.4 Est GFR ( Amer) 59.7 60.4 Est GFR (Non-Af Amer) 51.5 52.1 BUN/Creatinine Ratio 29.6 H 34.0 H Glucose 119 H 95 Calcium 10.2 9.0 Magnesium 2.0 Total Bilirubin 0.7 AST 27 ALT 28 Alkaline Phosphatase 66 Lactate Dehydrogenase 200 C-Reactive Protein 20.62 H B-Natriuretic Peptide 266 H Total Protein 7.3 Albumin 4.1 Globulin 3.2 Albumin/Globulin Ratio 1.3 PG Care Time/CCT Total # of Minutes Spent Total Time Spent with Patient: Total time spent is greater than 50% in coordination of care (as documented) at patient's floor/unit and/or counseling patient: Coding Level of Care Code 23414 SUB INP/OBS CARE 2/35MIN Diagnoses Cellulitis of right leg L03.115 Hypertension I10 Idiopathic polyneuropathy G60.9 Hyponatremia E87.1 Mitral regurgitation I34.0 Dilated aortic root I77.810 Restless legs syndrome G25.81
[2023-08-19] MEDS: DICLOFENAC SOD 1% GEL 100 GM TUBE EXT SCH ×2 (18:07→19:44)
--- NOTE | 2023-08-19 18:58 | CT Scan Report ---
CT ankle RT wo con HISTORY: 88 years-old Female severe cellulitis R phillips acute pain and swelling of the right ankle COMPARISON: None TECHNIQUE: Multiple axial CT images of the right ankle were obtained without the use of IV contrast. A dose lowering technique was used consistent with the principals of CRISTIANO. FINDINGS: Moderate to extensive dermal thickening with subcutaneous edema. No drainable collections. Tendons an d ligaments are not well evaluated by CT technique. Moderate osteoarthritis. No acute fracture, dislo cation or osseous erosion. IMPRESSION: 1. No acute osseous abnormality. 2. Dermal thickening with subcutaneous edema. Differential considerations include cellulitis, venous stasis or lymphedema. 3. No fluid collections. ACT 112: Negative or not required by law. The above report was generated using voice recognition software. It may contain grammatical, syntax o r spelling errors. Electronically signed by: Mendoza Boyer M.D. 08/19/2023 6:56 PM
[2023-08-19] MEDS ORDERED: VANCOMYCIN HCL 1,000 MG in SODIUM CHLORIDE 0.9% 250 ML IV SCH (20:00)
[2023-08-20 03:53] LABS: Appearance Urine Cloudy (Clear); Bacteria Urine Automated Negative (Negative); Bilirubin Urine Negative (Negative); Blood Urine Negative (Negative); Color Urine Yellow; Epithelial Cell Urine Auto 20-30 /lpf (0-5); Glucose Urine UA Negative (Negative); Ketones Urine Negative (Negative); Leukocyte Esterase Urine 3+ (Negative); Nitrite Urine Negative (Negative); Protein Urine Negative (Negative); Specific Gravity Urine 1.017 (1.000-1.030); Urobilinogen Urine Negative (Negative); WBC Urine Automated >30 /hpf (0-5); pH Urine 5.5 (4.5-7.5)
[2023-08-20] MEDS: ACETAMINOPHEN 325 MG TAB PO PRN (07:41)
[2023-08-20] MEDS: DICLOFENAC SOD 1% GEL 100 GM TUBE EXT SCH (07:44)
[2023-08-20 08:01] LABS: Basophils # (auto) 0.01 K/uL (0.00-0.20); Basophils % (auto) 0.1 %; Eosinophils # (auto) 0.06 K/uL (0.00-0.50); Eosinophils % (auto) 0.7 %; Hematocrit (blood only) 34.3 % (37.0-47.0); Hemoglobin 11.5 g/dl (12.0-16.0); Immature Granulocytes # (auto) 0.06 K/uL (0.01-0.20); Immature Granulocytes % (auto) 0.7 %; Lymphocytes # (auto) 0.89 K/uL (1.20-3.40); Lymphocytes % (auto) 11.1 %; Mean Corpuscular Hemoglobin 29.9 pg (25.0-34.0); Mean Corpuscular Hgb Conc 33.5 g/dL (32.0-36.0); Mean Corpuscular Volume 89.3 fL (80.0-100.0); Mean Platelet Volume 9.4 fL (9.4-12.4); Monocytes # (auto) 0.68 K/uL (0.11-0.59); Monocytes % (auto) 8.5 %; Neutrophils # (auto) 6.32 K/uL (1.40-6.50); Neutrophils % (auto) 78.9 %; Platelet Count 196 K/uL (130-400); Red Blood Count 3.84 M/uL (4.20-5.40); White Blood Count 8.02 K/ul (4.8-10.8)
[2023-08-20 08:26] LABS: BUN Creatinine Ratio 32.5 (10-20); Calcium 9.3 mg/dl (8.6-10.3); Creatinine Clr Calc Pharmacy 46.6 ml/min; Est GFR (African American) 76.3 ml/min; Est GFR (Non-African American) 65.8 ml/min; Potassium 3.8 mmol/L (3.5-5.1)
[2023-08-20] MEDS: PSYLLIUM or GUAR GUM FIBER POWDER PACKET PO SCH (09:07)
[2023-08-20] MEDS: HEPARIN SOD 5,000 UNIT/0.5 ML VIAL SQ SCH ×2 (09:09→20:41)
[2023-08-20] MEDS: hydrALAZINE HCL 25 MG TAB PO SCH ×3 (09:09→20:41)
[2023-08-20] MEDS: MAGNESIUM OXIDE 400 MG TAB PO SCH (09:09)
[2023-08-20] MEDS: SPIRONOLACTONE 25 MG TAB PO SCH (09:09)
[2023-08-20] MEDS: LOSARTAN POTASSIUM 50 MG TAB PO SCH (09:09)
[2023-08-20] MEDS: traMADol HCL 50 MG TABLET PO SCH (09:11)
[2023-08-20] MEDS: ACETAMINOPHEN 325 MG TAB PO SCH ×3 (11:36→20:41)
[2023-08-20] MEDS: HYDROCODONE/ACETAMOPHEN 5/325MG TAB PO PRN ×2 (11:38→23:00)
[2023-08-20] MEDS: CELECOXIB 100 MG CAP PO SCH (11:38)
[2023-08-20] MEDS: PRAMIPEXOLE DIHYDROCHLO 0.5 MG TAB PO SCH ×2 (11:38→17:44)
--- NOTE | 2023-08-20 15:02 | Pharmacy Report ---
Pharmacy PK ABX Note - Date of Service August 20, 2023 - Assessment and Plan Assessment 88 year old F receiving Vancomycin for treatment of R ankle cellulitis. Blood cultures show no growth to date. Day #3 of antimicrobial therapy. Vancomycin level random level obtained at noon today = 5.6 mcg/ml which is lower than anticipated even though level is not at steady state. Plan Vancomycin * Current regimen: 1000 mg IV every 24 hours. Patient only received one maintenance dose last night. * Random level obtained today resulted as 5.6 mcg/mL. This is predicted to achieve target AUC/JERRICA of less than 400 mg/L.hr * Therefore, dose increased to Vancomycin 1500 mg IV q24h. * Predicted AUC at steady state: 400-600 mg/L.hr * Repeat random level ordered for: 08/22 with AM labs Pharmacy will continue to follow and will adjust dose/frequency as necessary. Thank you. Pharmacy has transitioned to AUC monitoring for vancomycin. AUC/JERRICA is the preferred PK/PD target and is associated with decreased risk of nephrotoxicity compared to traditional trough targets.
[2023-08-20] MEDS ORDERED: VANCOMYCIN HCL 1,500 MG in SODIUM CHLORIDE 0.9% 500 ML IV SCH (15:30)
[2023-08-20] MEDS: cefTRIAXone SODIUM 2,000 MG in DEXTROSE 5 % MINI-B 50 ML IV SCH (16:03)
[2023-08-20] MEDS: DAPTOmycin 350 MG in SYRINGE 0 ML IV SCH (16:43)
--- NOTE | 2023-08-20 22:45 | Hospitalist Progress Note ---
Date of Service August 20, 2023 Assessment & Plan (1) Cellulitis of right leg: Plan: worse today despite improved WBC count, no fevers, and overall stable status. Started ~11/2 with progressive erythema over the majority of the right phillips. Venous doppler negative for DVT. Ankle films negative for joint effusion or fracture. ESR/CRP both elevated. No evidence of nec fasc clinically. CT of distal right leg/ankle without drainable abscess or fluid collection. remains on IV vancomycin but vanco level subtherapeutic - which may explain lack of response to date. given the subtherapeutic levels and worsening cellulitis will change vanco to IV daptomycin. add rocephin for strep coverage and some gram neg coverage. if there is still progression thru this regimen then will need even more gram neg coverage. elevate leg. pain control. recheck cbc and crp in am. (2) Hypertension: Plan: Continue hydralazine, losartan, aldactone. BPs acceptable. (3) Idiopathic polyneuropathy: Plan: Continue tramadol (4) Hyponatremia: Plan: Na 130 on arrival Today - 132 once again this is chronic going back several years will check urine osm, urine Na, and serum osm looks euvolemic again on exam (5) Mitral regurgitation: Plan: Stable Continue to monitor (6) Dilated aortic root: Plan: Beta-blockers previously discontinued due to adverse effects (7) Restless legs syndrome: Plan: Cont pramipexole per home dosing regimen 07/2023 Fe studies wnl I am perplexed why she is on tramadol for RLS will inquire with neurology about her pramipexole and what dose we can titrate to Plan DVT proph - Heparin 5000 units SQ q12h Spoke with pt's daughter by phone yesterday - extensive update given for joint pains & RLE pain change tramadol to norco 5's reassess tomorrow PT, OT Admission and Anticipated Discharge Date Admission Date: August 18, 2023 Subjective c/o her chronic L shoulder pain also complaining of RLE pain over the cellulitis site able to weight bear but it is uncomfortable she is still able to flex/extend the R ankle w/o pain however she reports severe RLS for years and has been taking tramadol multiple times per day for the RLS she specifically states the tramadol is for RLS - not joint pains explained the issue of tolerance to her and that we will have to use a stronger narcotic to help with current pains due to the tolerance not sure if she understood much of this conversation denies fevers or chills appetite fair reports no diarrhea but has had stool Review of Systems Review of Systems: cv - no chest pain pulm - no dyspnea or FORD Physical Exam Physical Exam: gen - NAD, pleasant - looks same as yesterday neck - no JVD mouth - MMM heart - RRR, s1 s2, 2/6 HUONG LSB lungs - CTA b/l abd - soft NT ND BS+ musculo - Right ankle - still no joint effusion; non tender with flexion/extension of joint. NO heat/warmth/erythema of R ankle. R knee - TKR scar present; she is able to flex/extend the knee without pain. NO warmth over R knee. skin - severe cellulitis extending from tibial plateau region down to just above the R ankle; also with scattered patches of erythema closer to the right knee. Erythema also present over the R foot - dorsal surface. The erythema over the top of foot and on the phillips is more intensely red today. However, the erythema has not encroached past the demarkation lines I mariel yesterday. Still no crepitus with palpation of erythematous areas. Just above R ankle - medial aspect - focal swelling, tiny (1-2mm) opening in this region but still no drainage or foul odor. this area remains tender to palpation. psych - a/o x 3 Results & Data Results & Data Vital Signs (Past 12 Hours) Vital Signs Temp Pulse Resp BP BP Pulse Ox O2 Del Method 08/20/23 20:37 36.8 C 85 16 139/84 96 Room Air 08/20/23 15:56 36.7 C 82 18 156/85 H 95 Room Air Laboratory Results Laboratory Results - last 24 hr 08/20/23 08/20/23 08/20/23 03:30 07:02 11:49 WBC 8.02 RBC 3.84 L Hgb 11.5 L Hct 34.3 L MCV 89.3 MCH 29.9 MCHC 33.5 RDW Std Deviation 49.0 H RDW Coeff of Xavier 15.0 H Plt Count 196 MPV 9.4 Immature Gran % (Auto) 0.7 Neut % (Auto) 78.9 Lymph % (Auto) 11.1 [place] % (Auto) 8.5 Eos % (Auto) 0.7 Baso % (Auto) 0.1 Neut # (Auto) 6.32 Lymph # (Auto) 0.89 L [place] # (Auto) 0.68 H Eos # (Auto) 0.06 Baso # (Auto) 0.01 Immature Gran # (Auto) 0.06 Sodium 132 L Potassium 3.8 Chloride 101 Carbon Dioxide 26 Anion Gap 5 BUN 26 H Creatinine 0.80 Est Cr Clr Drug Dosing 46.6 Est GFR ( Amer) 76.3 Est GFR (Non-Af Amer) 65.8 BUN/Creatinine Ratio 32.5 H Glucose 82 Calcium 9.3 Urine Color Yellow Urine Appearance Cloudy A Urine pH 5.5 Ur Specific Leslie 1.017 Urine Protein Negative Urine Glucose (UA) Negative Urine Ketones Negative Urine Blood Negative Urine Nitrite Negative Urine Bilirubin Negative Urine Urobilinogen Negative Ur Leukocyte Esterase 3+ H Urine WBC (Auto) >30 H Urine RBC (Auto) 5-10 H U Hyaline Cast (Auto) 1-5 U Epithel Cells (Auto) 20-30 H Urine Bacteria (Auto) Negative Random Vancomycin 5.6 L Diagnostic Findings blood cx's negative urine cx just sent PG Care Time/CCT Total # of Minutes Spent Total Time Spent with Patient: Total time spent is greater than 50% in coordination of care (as documented) at patient's floor/unit and/or counseling patient: Coding Level of Care Code 04536 SUB INP/OBS CARE 235MIN Diagnoses Cellulitis of right leg L03.115 Hypertension I10 Idiopathic polyneuropathy G60.9 Hyponatremia E87.1 Mitral regurgitation I34.0 Dilated aortic root I77.810 Restless legs syndrome G25.81
[2023-08-21] MEDS ORDERED: HYDROmorphone INJ 0.5 MG/0.5 ML SYR IV STA (03:16)
[2023-08-21 07:32] LABS: Basophils # (auto) 0.02 K/uL (0.00-0.20); Basophils % (auto) 0.3 %; Eosinophils # (auto) 0.11 K/uL (0.00-0.50); Eosinophils % (auto) 1.4 %; Hematocrit (blood only) 35.3 % (37.0-47.0); Immature Granulocytes # (auto) 0.03 K/uL (0.01-0.20); Immature Granulocytes % (auto) 0.4 %; Lymphocytes # (auto) 0.93 K/uL (1.20-3.40); Lymphocytes % (auto) 11.9 %; Mean Corpuscular Hemoglobin 29.4 pg (25.0-34.0); Mean Corpuscular Volume 86.5 fL (80.0-100.0); Mean Platelet Volume 9.3 fL (9.4-12.4); Monocytes # (auto) 0.55 K/uL (0.11-0.59); Monocytes % (auto) 7.1 %; Neutrophils # (auto) 6.15 K/uL (1.40-6.50); Neutrophils % (auto) 78.9 %; Platelet Count 243 K/uL (130-400); RDW Coefficient of Variation 14.7 % (11.5-14.5); RDW Standard Deviation 46.7 fL (36.4-46.3); Red Blood Count 4.08 M/uL (4.20-5.40); White Blood Count 7.79 K/ul (4.8-10.8)
[2023-08-21] MEDS: HYDROCODONE/ACETAMOPHEN 5/325MG TAB PO PRN (07:46)
[2023-08-21] MEDS: CELECOXIB 100 MG CAP PO SCH (07:48)
[2023-08-21 07:51] LABS: BUN Creatinine Ratio 28.7 (10-20); Calcium 9.5 mg/dl (8.6-10.3); Creatinine Clr Calc Pharmacy 42.8 ml/min; Est GFR (African American) 68.9 ml/min; Est GFR (Non-African American) 59.5 ml/min; Potassium 4.2 mmol/L (3.5-5.1)
[2023-08-21] MEDS: LOSARTAN POTASSIUM 50 MG TAB PO SCH (08:49)
[2023-08-21] MEDS: hydrALAZINE HCL 25 MG TAB PO SCH ×3 (08:49→20:17)
[2023-08-21] MEDS: MAGNESIUM OXIDE 400 MG TAB PO SCH (08:50)
[2023-08-21] MEDS: SPIRONOLACTONE 25 MG TAB PO SCH (08:50)
[2023-08-21] MEDS: PSYLLIUM or GUAR GUM FIBER POWDER PACKET PO SCH (08:51)
[2023-08-21] MEDS: HEPARIN SOD 5,000 UNIT/0.5 ML VIAL SQ SCH ×2 (08:51→20:17)
[2023-08-21] MEDS: DAPTOmycin 350 MG in SYRINGE 0 ML IV SCH (08:57)
[2023-08-21] MEDS: ACETAMINOPHEN 325 MG TAB PO SCH ×2 (09:33→13:59)
[2023-08-21] MEDS: HYDROCODONE/ACETAMINOPHEN 7.5/325MG TAB PO PRN ×3 (11:42→20:07)
[2023-08-21] MEDS: PRAMIPEXOLE DIHYDROCHLO 0.5 MG TAB PO SCH ×2 (12:52→17:13)
--- NOTE | 2023-08-21 13:53 | Hospitalist Progress Note ---
Date of Service August 21, 2023 Assessment & Plan (1) Cellulitis of right leg: Plan: looks slightly worse superiorly near the knee and over the dorsum of foot the main portion over the phillips is about the same or slightly better. WBC still wnl. CRP has dropped from 20 to 16. No fevers. Venous doppler negative for DVT. Ankle films negative for joint effusion or fracture. No evidence of nec fasc clinically. CT of distal right leg/ankle without drainable abscess or fluid collection. cont IV daptomycin. cont IV rocephin. if any worsening then broaden rocephin to cefepime to cover more gram negatives including pseudomonas but my suspicion for latter is very low. elevate leg. pain control. recheck cbc am. (2) Hypertension: Plan: Continue hydralazine, losartan, aldactone. BPs acceptable. (3) Idiopathic polyneuropathy: Plan: Continue tramadol (4) Hyponatremia: Plan: Na 130 on arrival now resolved Na normal today this is chronic going back several years looks euvolemic again on exam (5) Mitral regurgitation: Plan: Stable Continue to monitor (6) Dilated aortic root: Plan: Beta-blockers previously discontinued due to adverse effects (7) Restless legs syndrome: Plan: 07/2023 Fe studies wnl I am perplexed why she is on tramadol for RLS I spoke informally with on-call neurology re: pramipexole will titrate her mid-day dose and evening dose could consider an AM dose as well (8) UTI (urinary tract infection): Plan: 2nd GNR rocephin should suffice f/u on final cx tomorrow Plan DVT proph - Heparin 5000 units SQ q12h Spoke with pt's daughter this week Updated pt's at bedside today for joint pains & RLE pain --> norco in ramila of tramadol cont PT, OT stop celebrex -- not helping stop scheduled tylenol -- also not helping Admission and Anticipated Discharge Date Admission Date: August 18, 2023 Subjective had rough night due to pain in distal RLE, chronic joint pains, and her restless legs a little anxiety at times as well eating/drinking well no diarrhea denies any pain in R knee or R ankle most pain is in R foot at bedside when I visited a 2nd time late in the day Review of Systems Review of Systems: gen - no fevers or chills cv - no orthopnea, no chest pain pulm - no dyspnea Physical Exam Physical Exam: gen - NAD, pleasant; nontoxic neck - no JVD mouth - MMM heart - RRR, s1 s2, 2/6 HUONG LSB lungs - CTA b/l abd - soft NT ND BS+ musculo - Right ankle and right knee - passive ROM - NO pain/tenderness or joint fluid skin - severe cellulitis extending from tibial plateau region down to just above the R ankle; then there is erythema over the entire dorsum of right foot. The right foot erythema is worse today. The superior most portion of cellulitis has extended beyond the superior demarkation line below the knee. Just above R ankle - medial aspect - focal swelling is worse (edema) but no palpable abscess. condenser tube tender in this area. Tiny (1-2mm) opening in this region but still no drainage or foul odor. psych - a/o x 3 NO CREPITUS with palpation of ANY portion of the RIGHT LEG Results & Data Results & Data Vital Signs (Past 12 Hours) Vital Signs Temp Pulse Resp BP Pulse Ox O2 Del Method 08/21/23 07:44 36.9 C 90 16 130/84 95 Room Air Laboratory Results Laboratory Results 08/20/23 08/21/23 08/21/23 11:49 07:05 14:25 WBC 7.79 RBC 4.08 L Hgb 12.0 Hct 35.3 L MCV 86.5 MCH 29.4 MCHC 34.0 RDW Std Deviation 46.7 H RDW Coeff of Xavier 14.7 H Plt Count 243 MPV 9.3 L Immature Gran % (Auto) 0.4 Neut % (Auto) 78.9 Lymph % (Auto) 11.9 [place] % (Auto) 7.1 Eos % (Auto) 1.4 Baso % (Auto) 0.3 Neut # (Auto) 6.15 Lymph # (Auto) 0.93 L [place] # (Auto) 0.55 Eos # (Auto) 0.11 Baso # (Auto) 0.02 Immature Gran # (Auto) 0.03 Sodium 136 Potassium 4.2 Chloride 104 Carbon Dioxide 26 Anion Gap 6 BUN 25 H Creatinine 0.87 Est Cr Clr Drug Dosing 42.8 Est GFR ( Amer) 68.9 Est GFR (Non-Af Amer) 59.5 BUN/Creatinine Ratio 28.7 H Glucose 94 Calcium 9.5 C-Reactive Protein 16.03 H Urine Osmolality Ur Random Sodium 43 Random Vancomycin 5.6 L 08/21/23 Unknown WBC RBC Hgb Hct MCV MCH MCHC RDW Std Deviation RDW Coeff of Xavier Plt Count MPV Immature Gran % (Auto) Neut % (Auto) Lymph % (Auto) [place] % (Auto) Eos % (Auto) Baso % (Auto) Neut # (Auto) Lymph # (Auto) [place] # (Auto) Eos # (Auto) Baso # (Auto) Immature Gran # (Auto) Sodium Potassium Chloride Carbon Dioxide Anion Gap BUN Creatinine Est Cr Clr Drug Dosing Est GFR ( Amer) Est GFR (Non-Af Amer) BUN/Creatinine Ratio Glucose Calcium C-Reactive Protein Urine Osmolality 521 Ur Random Sodium Random Vancomycin PG Care Time/CCT Total # of Minutes Spent Total Time Spent with Patient: Total time spent is greater than 50% in coordination of care (as documented) at patient's floor/unit and/or counseling patient: Coding Level of Care Code 28537 SUB INP/OBS CARE 3/50MIN Diagnoses Cellulitis of right leg L03.115 Hypertension I10 Idiopathic polyneuropathy G60.9 Hyponatremia E87.1 Mitral regurgitation I34.0 Dilated aortic root I77.810 Restless legs syndrome G25.81 UTI (urinary tract infection) N39.0
[2023-08-21] MEDS ORDERED: FUROSEMIDE 20 MG TAB PO ONE (14:00)
[2023-08-21] MEDS: cefTRIAXone SODIUM 2,000 MG in DEXTROSE 5 % MINI-B 50 ML IV SCH (15:44)
[2023-08-21] MEDS: MELATONIN 3 MG TAB PO SCH (20:17)
[2023-08-22] MEDS: HYDROCODONE/ACETAMINOPHEN 7.5/325MG TAB PO PRN ×4 (00:14→20:48)
[2023-08-22] MEDS: PSYLLIUM or GUAR GUM FIBER POWDER PACKET PO SCH (08:34)
[2023-08-22] MEDS: HEPARIN SOD 5,000 UNIT/0.5 ML VIAL SQ SCH ×2 (08:34→20:50)
[2023-08-22] MEDS: hydrALAZINE HCL 25 MG TAB PO SCH ×3 (08:34→20:49)
[2023-08-22] MEDS: SPIRONOLACTONE 25 MG TAB PO SCH (08:34)
[2023-08-22] MEDS: MAGNESIUM OXIDE 400 MG TAB PO SCH (08:34)
[2023-08-22] MEDS: LOSARTAN POTASSIUM 50 MG TAB PO SCH (08:35)
[2023-08-22 08:46] LABS: BUN Creatinine Ratio 21.6 (10-20); Calcium 9.6 mg/dl (8.6-10.3); Creatinine Clr Calc Pharmacy 50.4 ml/min; Est GFR (African American) 83.8 ml/min; Est GFR (Non-African American) 72.3 ml/min
[2023-08-22] MEDS: DAPTOmycin 350 MG in SYRINGE 0 ML IV SCH (08:46)
[2023-08-22] MEDS: ADVANCED PROBIOTIC 1250 MG CAPSULE PO SCH (10:49)
[2023-08-22] MEDS: PRAMIPEXOLE DIHYDROCHLO 0.5 MG TAB PO SCH ×2 (11:34→17:17)
--- NOTE | 2023-08-22 13:43 | Hospitalist Progress Note ---
Date of Service August 22, 2023 Assessment & Plan (1) Cellulitis of right leg: Plan: IMPROVING. cont IV daptomycin. cont IV rocephin. elevate leg. pain control. give another dose of lasix today to promote diuresis of edema. (2) Hypertension: Plan: Continue hydralazine, losartan, aldactone. BPs acceptable. (3) Idiopathic polyneuropathy: Plan: Continue tramadol (4) Hyponatremia: Plan: Na 130 on arrival now resolved Na again normal today this is chronic going back several years looks euvolemic again on exam except for edema of right leg (5) Mitral regurgitation: Plan: Stable Continue to monitor (6) Dilated aortic root: Plan: Beta-blockers previously discontinued due to adverse effects (7) Restless legs syndrome: Plan: 07/2023 Fe studies wnl I am perplexed why she is on tramadol for RLS I spoke informally with on-call neurology re: pramipexole -- titrated her mid-day dose and evening dose could consider an AM dose as well (8) UTI (urinary tract infection): Plan: 2nd pansensitive e.coli rocephin will cover Plan DVT proph - Heparin 5000 units SQ q12h Updated pt's at bedside today for joint pains & RLE pain --> norco in ramila of tramadol cont PT, OT Admission and Anticipated Discharge Date Admission Date: August 18, 2023 Subjective sitting in chair during the visit with leg propped up on another chair w/ pillow she was very emotional and tearful today she wants to go home not sleeping well because of pain in joints, right leg pain, and just the bed being uncomfortable eating well no diarrhea at bedside today Review of Systems Review of Systems: gen - no fevers or chills cv - no chest pain pulm - no cough GI - no nausea/emesis Physical Exam Physical Exam: gen - NAD but very emotional/tearful today; sitting in chair neck - no JVD mouth - MMM heart - RRR, s1 s2, 2/6 HUONG LSB lungs - CTA b/l abd - soft NT ND BS+ skin - severe cellulitis extending from tibial plateau region down to just above the R ankle - IMPROVED today; less intensely red over the entire area of cellulitis; the erythema is retreating from the demarkation lines that are in the proximal phillips; less warmth today; less intensely red skin over the right dorsum of foot. focal swelling of medial left distal leg is improved today; less tenderness over this focal swelling area. Tiny (1-2mm) opening in this region but still no drainage or foul odor. psych - a/o x 3 STILL NO CREPITUS with palpation of ANY portion of the RIGHT LEG Results & Data Results & Data Vital Signs (Past 12 Hours) Vital Signs Temp Pulse Resp BP Pulse Ox O2 Del Method 08/22/23 08:29 37.3 C 89 16 140/84 96 Room Air Laboratory Results Laboratory Results - last 24 hr 08/21/23 08/21/23 08/22/23 14:25 Unknown 07:59 Sodium 137 Potassium 4.0 Chloride 104 Carbon Dioxide 27 Anion Gap 6 BUN 16 Creatinine 0.74 Est Cr Clr Drug Dosing 50.4 Est GFR ( Amer) 83.8 Est GFR (Non-Af Amer) 72.3 BUN/Creatinine Ratio 21.6 H Glucose 97 Calcium 9.6 Urine Osmolality 521 Ur Random Sodium 43 PG Care Time/CCT Total # of Minutes Spent Total Time Spent with Patient: Total time spent is greater than 50% in coordination of care (as documented) at patient's floor/unit and/or counseling patient: Coding Level of Care Code 98589 SUB INP/OBS CARE 2/35MIN Diagnoses Cellulitis of right leg L03.115 Hypertension I10 Idiopathic polyneuropathy G60.9 Hyponatremia E87.1 Mitral regurgitation I34.0 Dilated aortic root I77.810 Restless legs syndrome G25.81 UTI (urinary tract infection) N39.0
[2023-08-22] MEDS ORDERED: FUROSEMIDE 20 MG TAB PO ONE (14:00)
[2023-08-22] MEDS: DESONIDE CR 15 GM TUBE EXT PRN (15:40)
[2023-08-22] MEDS: cefTRIAXone SODIUM 2,000 MG in DEXTROSE 5 % MINI-B 50 ML IV SCH (15:42)
[2023-08-22] MEDS: MELATONIN 3 MG TAB PO SCH (20:48)
[2023-08-23] MEDS: HYDROCODONE/ACETAMINOPHEN 7.5/325MG TAB PO PRN ×5 (00:48→22:00)
--- OUTSIDE RECORDS SUMMARY | 2023-08-23 02:08 | External Medical Summary | Summary of Care ---
Author Name Unknown Organization [facility] Address [address] [facility] [place] [address] Phone [phone] Care Team Providers Care Senior Pharmacy Technician Name Role Phone Chalo Doran DO Primary Care Provider [phone] Reason for Visit * Reason Comments Follow Up F/U 6-8 WEEKS-DIL/OC T OS; Denies changes * Precert (Within 10 days (routine)) - Authorized Specialty Diagnoses / Procedures Referred By Nasra pritchard Referred To Contact Ophthalmology Diagnoses Exudative age-related macular degeneration, left eye, with active choroidal neovascularization (HCC) Procedures ME BEVACIZUMAB INJECTION ME INTRAVITREAL NJX PHARMACOLOGIC AGT SPX Mike Hollis DO [address] [place] [address] Referral ID Status Reason Start Date Expiration Date V isits Requested Visits Authorized [id number] Authorized Precert 11/04/2022 10/11/2099 [id number] Encounter Details Date Type Department Care Team Description 04/23/2023 Office Visit Ophthalmology, [facility] [address] [place] [address] Mike Hollis DO [address] [place] [address] Exudative age-related macular degeneration of left eye with active choroidal neovascularization (HCC)* Allergies No known active allergiesdocumented as of this encounter (statuses as of 04/23/2023) Medications Medication Sig Dispensed Refills Start Date End Date Status Zinc 50 MG Oral Capsule Take 1 Capsule by mouth in the morning. 0 Active Aspirin 81 MG Oral Tablet Delayed Release 1 Tablet. 0 07/04/2021 Active Coenzyme Q10 100 MG Oral Capsule 1 Capsule. 0 10/25/2020 Active Cyanocobalamin 500 MCG Oral Tablet Take 1 Tablet by mouth. 0 Active diphenhydrAMINE HCl (Sleep) 25 MG Oral Tablet Take 12.5 mg by mouth. 0 Active Vitamin D3 1.25 MG (36940 UT) Oral Capsule Take 1 Capsule by mouth in the morning. 0 Active Triamcinolone Acetonide 0.1 % External Cream (Aristocort) Apply 1 Application Dosing Unit topically to affected area as needed. 0 07/04/2021 Active Desonide 0.05 % External Cream Apply 1 Application Dosing Unit topically to affected area as needed. 0 07/04/2021 Active Escitalopram Oxalate 10 MG Oral Tablet (Lexapro) Take 1 Tablet by mouth in the morning. 0 10/16/2021 Active Omeprazole 20 MG Oral Capsule Delayed Release (PriLOSEC) Take 1 Capsule by mouth as needed. 0 09/25/2022 Active Famotidine 10 MG Oral Tablet Take 1 Tablet by mouth as needed. 0 Active PreserVision AREDS 2 Oral Tablet Chewable Take by mouth 2 times a day. 0 Active Spironolactone 50 MG Oral Tablet (Aldactone) Take 1 Tablet by mouth in the morning. 0 04/14/2023 Active Pramipexole Dihydrochloride 0.5 MG Oral Tablet (Mirapex) Take 1 Tablet by mouth in the morning. 0 04/20/2023 Active Losartan Potassium 100 MG Oral Tablet (Cozaar) Take 1 Tablet by mouth in the morning. 0 03/16/2023 Active hydrALAZINE HCl 25 MG Oral Tablet (Apresoline) Take 1 Tablet by mouth in the morning. 0 04/22/2023 Active traMADol HCl 50 MG Oral Tablet (Ultram) Take 1 Tablet by mouth in the morning and 1 Tablet at noon and 1 Tablet before bedtime. 0 04/10/2023 Active Oxybutynin Chloride ER 5 MG Oral Tablet Extended Release 24 Hour (Ditropan XL) Take 1 Tablet by mouth as needed. 0 01/12/2023 Active Oxytrol 3.9 MG/24HR Transdermal Patch Twice Weekly (Oxybutynin) Place 1 Patch topically on the skin once a week. 0 Active Losartan Potassium-HCTZ 100-12.5 MG per tabletIndications:HCT Z 25MG Daily Indications: HCTZ 25MG 0 04/27/2015 3 Discontinue d(Medicatio n List Clean Up) traMADol 25 MG PO Tablet Take 5 Tablets by mouth every 6 hours as needed. 0 3 Discontinue d(Medicatio n List Clean Up) Pramipexole Dihydrochloride 0.25 MG Oral Tablet (Mirapex) Take 2 Tablets by mouth in the morning. 0 3 Discontinue d(Medicatio n List Clean Up) Spironolactone 25 MG Oral Tablet (Aldactone) 0 08/07/2021 3 Discontinue d(Medicatio n List Clean Up) hydrALAZINE HCl 10 MG Oral Tablet (Apresoline) 0 08/19/2021 3 Discontinue d(Medicatio n List Clean Up) Hospital, Clinic, or Other Facility Administered Medication Ordered Dose Route Frequency Start Date End Date Status bevaCIZumab (Avastin) inj 1.25 mgIndications:Exudative age-related macular degeneration of left eye with active choroidal neovascularization (HCC) 1.25 mg IZ PRN 11/04/2022 11/04/2023 Active ROPivacaine (Naropin) inj 1.5 mgIndications:Exudative age-related macular degeneration of left eye with active choroidal neovascularization (HCC) 1.5 mg IJ PRN 11/04/2022 11/04/2023 Active documented as of this encounter (statuses as of 04/23/2023) Active Problems Problem Noted Date Encounter for surveillance of abnormal n gabby 06/26/2015 documented as of this encounter (statuses as of 04/23/2023) Social History Tobacco Use Types Packs/Day Years Used Date Smoking Tobacco: Never Smokeless Tobacco: Never Alcohol Use Standard Drinks/Week Comments Yes 1 (1 standard drink = 0.6 oz pur e alcohol) occasionally Sex Assigned at Date Recorded Not on file Job Start Date Occupation Industry Not on file Not on file Not on file documented as of this encounter Progress Notes * Mike Hollis DO - 04/23/2023 11:30 AM EDT [facility] [place] Nursing notes reviewed. Eye vitals reviewed. Mood and Affect: normal HPI: Amina Casillas is a 87 year old female who presents for evaluation of AMD No other eye complaints. Denies significant pain. Base Eye Exam Visual Acuity (Snellen - Linear) Right Left Dist cc 20/25 -1 20/100 -2 Dist ph cc 20/50 Correction: Glasses Tonometry (Tonopen, 11:41 AM) Right Left Pressure 13 13 Pupils Pupils APD Right PERRL None Left PERRL None Visual Arnold (Counting fingers) Right Left Full Full Extraocular Movement Right Left Full, Ortho Full, Ortho Neuro/Psych Oriented x3: Yes Mood/Affect: Normal Dilation Both eyes: 0.5% Proparacaine @ 11:34 Dilation #2 Left eye: 1.0% Mydriacyl, 2.5% Phenylephrine @ 11:34AM Strabismus Exam Correction: nd Observations: Ortho Distance Near Near +3DS N Bifocals cover/uncover, and alternate cover EXTERNAL: The ocular adnexae are unremarkable. SLE: Lids/Lashes: wnl OU Conjunctiva/Sclera: quiet OU Cornea: clear OU Anterior Chamber: deep and quiet OU Iris: normal OU; no NVI OU Lens: PCIOL OU ; yag cap OU Dilated fundus exam OD: 11/03/22 vitreous: pvd optic nerve: 0.3, no edema/pallor/NVD macula: drusen, ga vessels: wnl periphery: reticular changes, no RT/RD Dilated fundus exam OS: vitreous: pvd optic nerve: 0.3, no edema/pallor/NVD macula: PED rip vessels: wnl periphery: reticular changes, no RT/RD OCT Interpretation: OD: 11/03/22: drusen, atrophy, no cme/srlfuid OS: srlfuid, flattened PED rip, srmounding--improved 72um A/P: 1. Age-Related Macular Degeneration OD: dry OS: wet PED rip -Avastin 02/27/23, 01/13/23, 12/09/22, 11/04/22 -7 weeks 2. Posterior Vitreous Detachment OU -no RT/RD -advised to return to clinic if she should experience worsening or new floaters, flashes of light, a shadow in the periphery, or decrease in vision. 3. Pseudophakia OU -stable, Dr Roberts F/u 7-9 weeks, OCT OU Mike Hollis DO CC: Shirlene Claros, OD CC: PCP: Chalo Doran DO TIMEOUT PROCEDURE: correct patient identity-YES correct procedure and consent-YES verified side and site-YES correct patient position-YES all necessary equipment/prior studies present-YES reviewed special requirements of this patient-YES PROCEDURE: Intravitreal injection of Avastin 1.25mg OS INFORMED CONSENT: Patient is aware that this is an off-label use of Avastin and that Avastin is not FDA approved for this use. Risks, benefits and alternatives have been discussed with the patient. Risks include, but are not limited to: retinal tears, detachments, hemorrhage, glaucoma, infection, cataracts, need formore procedures and the potential risk of arterial thromboembolic events following use of intravitreal VEGF inhibitors defined as nonfatal stroke, nonfatal myocardial infarction or vascular . Patient is aware of these risks and consents to the procedure. DESCRIPTION OF PROCEDURE: The procedure site was confirmed. Topical proparacaine was applied to the surface of the eye after which subconjunctival anesthetic was administered. The area was prepped in the standard aseptic manner with 5% Betadine solution. An eyelid speculum was placed and 0.05 ml of a 25mg/ml solution of Avastin was injected 3.75 mm posterior to the limbus into the midvitreous cavity with a 30 gauge short needle. The Betadine was flushed from the eye, the eye speculum was removed and optic nerve perfusion was insured. The patient tolerated the procedure without difficulty and was given followup instructions and instructed to use ophthalmic ointment 3x/day as needed. Mike Hollis DO, performed the procedure in its entirety. documented in this encounter Nursing Notes * Kailee Krishnan RN - 04/23/2023 11:39 AM EDT Amina Casillas is a 87 year old year old female who presents for AMD. Last Office Visit: 02/27/2023 (in office), Visit date not found (telemedicine) Patient currently states no change in vision. Are you diabetic? No Do you drive? no OCT image(s) of left eye acquired and filed/scanned into chart. documented in this encounter Plan of Treatment Health Maintenance Due Date Last Done Comments DXA Scan 1935 Pneumococcal Vaccine: 65+ Years (1 - PCV) 1941 Depression Screening, Annual for Pts 12 and Over 1947 DTaP,Tdap,and Td Vaccines (1 - Tdap) 1954 Influenza Vaccine (FLU shot) (#1) 2023 07/19/2022, 07/19/2019, 07/18/2015, Additional history exists Zoster Vaccines Completed 01/17/2019, 09/12, 10/07/2007 COVID-19 Vaccine Completed 07/19/2022, 05/2022, 02/07/2022, Additional history exists GARDASIL-HPV IMMUNIZATION SERIES Aged Out No longer eligible based on patient's age to complete this topic Hepatitis B Aged Out No longer eligi ble based on patient's age to complete this topic MENINGOCOCCAL (MENACTRA/MENVEO) Aged Out No longer eligible based on patient's age to complete this topic documented as of this encounter Medical Devices Not on filedocumented as of this encounter Visit Diagnoses Diagnosis Exudative age-related macular degeneration of left eye with active choroidal neovascularization (HCC)- Primary documented in this encounter Care Teams Senior Pharmacy Technician Relationship Specialty Start Date End Date Chalo Doran DO [address] [facility] [place] [address] PCP - General Family Medicine 12/24/20 documented as of this encounter
--- OUTSIDE RECORDS SUMMARY | 2023-08-23 02:08 | External Medical Summary | Summary of Care ---
Author Name Unknown Organization [facility] Address [address] [facility] [place] [address] Phone [phone] Care Team Providers Care Daub Color Mixer Name Role Phone [place] Makayla Nany DOUGLAS Primary Care Provider [phone] Reason for Visit * Reason Comments Follow Up 7-9 week f/u; pt rep orts OS feels like she has something in it right now, needs new glasses still * Precert (Within 10 days (routine)) - Authorized Specialty Diagnoses / Procedures Referred By Nasra pritchard Referred To Contact Ophthalmology Diagnoses Exudative age-related macular degeneration, left eye, with active choroidal neovascularization (HCC) Procedures MA BEVACIZUMAB INJECTION MA INTRAVITREAL NJX PHARMACOLOGIC AGT SPX Mike Hollis, DO [address] [place] [address] Referral ID Status Reason Start Date Expiration Date V isits Requested Visits Authorized [id number] Authorized Precert 11/04/2022 10/11/2099 [id number] Encounter Details Date Type Department Care Team Description 06/26/2023 Office Visit Ophthalmology, [facility] [address] [place] [address] Mike Hollis DO [address] [place] [address] Exudative age-related macular degeneration of left eye with active choroidal neovascularization (HCC)*; Exudative age-related macular degeneration of right eye with active choroidal neovascularization (HCC) Allergies No known active allergiesdocumented as of this encounter (statuses as of 07/31/2023) Medications Medication Sig Dispensed Refills Start Date End Date Status Zinc 50 MG Oral Capsule Take 1 Capsule by mouth in the morning. 0 Active Aspirin 81 MG Oral Tablet Delayed Release 1 Tablet. 0 07/04/2021 Ac tive Coenzyme Q10 100 MG Oral Capsule 1 Capsule. 0 10/25/2020 Active Cyanocobalamin 500 MCG Oral Tablet Take 1 Tablet by mouth. 0 Active diphenhydrAMINE HCl (Sleep) 25 MG Oral Tablet Take 12.5 mg by mouth. 0 Active Vitamin D3 1.25 MG (74419 UT) Oral Capsule Take 1 Capsule by [...] 1 Tablet before bedtime. 0 04/10/2023 Active Oxytrol 3.9 MG/24HR Transdermal Patch Twice Weekly (Oxybutynin) Place 1 Patch topically on the skin once a week. 0 Active Hospital, Clinic, or Other Facility Administered Medication [...] as of this encounter (statuses as of 07/31/2023) Active Problems Problem Noted Date Encounter for surveillance of abnormal n gabby 06/26/2015 documented as of this encounter (statuses as of 07/31/2023) Immunizations Name Administration Dates Next Due Seasonal Influenza, Quadrivalent Hd (Fluzone Hd) 07/24/2023 documented as of this encounter Social History Tobacco Use Types Packs/Day Years Used Date Smoking Tobacco: Never Smokeless Tobacco: Never Alcohol Use Standard Drinks/Week Comments Yes 1 (1 standard drink = 0.6 oz pur e alcohol) occasionally Sex Assigned at Date Recorded Not on file Job Start Date Occupation Industry Not on file Not on file Not on file documented as of this encounter Progress Notes * Mike Hollis, - 06/26/2023 10:00 AM EDT [facility] [place] Nursing notes reviewed. Eye vitals reviewed. Mood and Affect: normal HPI: Amina Casillas is a 88 year old female who presents for evaluation of AMD No other eye complaints. Denies significant pain. Base Eye Exam Visual Acuity (Snellen - Linear) Right Left Dist cc 20/30 20/60 -1 Dist ph cc NI Describes lines being wavy in OS Tonometry (Tonopen, 10:09 AM) Right Left Pressure 14 13 Pupils Pupils Right PERRL Left PERRL Visual Arnold (Counting fingers) Right Left Full Full Extraocular Movement Right Left Full, Ortho Full, Ortho Neuro/Psych Oriented x3: Yes Mood/Affect: Normal Dilation Both eyes: 0.5% Proparacaine @ 10:06 AM Dilation #2 Both eyes: 1.0% Mydriacyl, 2.5% Phenylephrine @ 10:08 AM Dilation Comments Patient cautioned that effects of dilation may last 2-7 hours dependant upon individual reaction. It was discussed that driving while dilated is not recommended. EXTERNAL: The ocular adnexae are unremarkable. SLE: Lids/Lashes: wnl OU Conjunctiva/Sclera: quiet OU Cornea: clear OU Anterior Chamber: deep and quiet OU Iris: normal OU; no NVI OU Lens: PCIOL OU ; yag cap OU Dilated fundus exam OD: vitreous: pvd optic nerve: 0.3, no edema/pallor/NVD macula: drusen, ga vessels: wnl periphery: reticular changes, no RT/RD Dilated fundus exam OS: vitreous: pvd optic nerve: 0.3, no edema/pallor/NVD macula: PED rip vessels: wnl periphery: reticular changes, no RT/RD OCT Interpretation: OD: drusen, +PED, srfluid--WORSE/NEW 78um OS: srlfuid, flattened PED rip, srmounding--STABLE, prior improved 72um A/P: 1. Age-Related Macular Degeneration OD: wet -Avastin 06/26/2023 OS: wet PED rip -Avastin 04/23/23, 02/27/23, 01/13/23, 12/09/22, 11/04/22 -9 weeks 2. Posterior Vitreous Detachment OU -no RT/RD -advised to return to clinic if she should experience worsening or new floaters, flashes of light, a shadow in the periphery, or decrease in vision. 3. Pseudophakia OU -stable, Dr Roberts I have provided a significant and separately identifiable visit with today's procedure because a medically necessary exam was performed on the eye that did not undergo the injection procedure. f/u for Avastin only OS 1-2 weeks f/u 4-6 week for OCT OU Mike Hollis DO CC: Shirlene Claros, OD CC: PCP: Chalo Doran DO TIMEOUT PROCEDURE: correct patient identity-YES correct procedure and consent-YES verified side and site-YES correct patient position-YES all necessary equipment/prior studies present-YES reviewed special requirements of this patient-YES PROCEDURE: Intravitreal injection of Avastin 1.25mg OD INFORMED CONSENT: Patient is aware that this [...] documented in this encounter Nursing Notes * CAT Moore - 06/26/2023 10:33 AM EDT Amina Casillas to receive first Avastin 1.25mg Injection of the Right eye. Correct eye confirmed with patient and marked by Mike Hollis DO Avastin 1.25mg lot # [id number] Exp. Date: 07/28/23 * CAT Moore - 06/26/2023 10:01 AM EDT Amina Casillas is a 88 year old year old female who presents for AMD. Last Office Visit: 04/23/2023 (in office), Visit date not found (telemedicine) Patient currently states 7-9 week f/u; pt reports OS feels like she has something in it right now, needs new glasses still Are you diabetic? No Do you drive? no OCT image(s) of both eyes acquired and filed/scanned into chart. 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) documented in this encounter Administered Medications Active Administered Medications - up to 3 most recent administrations Medication Order MAR Action Action Date Dose Rate Site bevaCIZumab (Avastin) inj 1.25 mg 1.25 mg, Intravitreal, PRN Other, Starting on Thu11/04/22 at 0953, Until Thu11/04/23 at 0952, For 365 days Given 07/07/2023 9:54 AM EDT 1.25 mg Eye Left Given 06/26/2023 10:34 AM EDT 1.25 mg E ye Right Given 04/23/2023 12:09 PM EDT 1.25 mg E ye Left ROPivacaine (Naropin) inj 1.5 mg 1.5 mg, Injection, PRN Other, Starting on Thu11/04/22 at 0953, Until Thu11/04/23 at 0952, For 365 days Given 07/07/2023 9:54 AM EDT 1.5 mg Eye Left Given 06/26/2023 10:34 AM EDT 1.5 mg E ye Right Given 04/23/2023 12:09 PM EDT 1.5 mg E ye Left documented in this encounter Care Teams Daub Color Mixer Relationship Specialty Start Date End Date Makayla Adan, STELLA [address] [place] [address] PCP - General Nurse Practitioner 06/26/23 documented as of this encounter
--- OUTSIDE RECORDS SUMMARY | 2023-08-23 02:08 | External Medical Summary | Summary of Care ---
Author Name Unknown Organization [facility] Address [address] [facility] [place] [address] Phone [phone] Care Team Providers Care Pest Control Operator Name Role Phone [place] Makayla Nany DOUGLAS Primary Care Provider [phone] Reason for Visit * Reason Comments Follow Up 7-9 week f/u; pt rep orts OS feels like she has something in it right now, needs new glasses still * Precert (Within 10 days (routine)) - Authorized Specialty Diagnoses / Procedures Referred By Nasra pritchard Referred To Contact Ophthalmology Diagnoses Exudative age-related macular degeneration, left eye, with active choroidal neovascularization (HCC) Procedures LA BEVACIZUMAB INJECTION LA INTRAVITREAL NJX PHARMACOLOGIC AGT SPX Mike Hollis, DO [address] [place] [address] Referral ID Status Reason Start Date Expiration Date V isits Requested Visits Authorized [id number] Authorized Precert 11/04/2022 10/11/2099 999 [id number] Encounter Details Date Type Department Care Team Description 06/26/2023 Office Visit Ophthalmology, [facility] [address] [place] [address] Mike Hollis DO [address] [place] [address] Exudative age-related macular degeneration of left eye with active choroidal neovascularization (HCC)*; Exudative age-related macular degeneration of right eye with active choroidal neovascularization (HCC) Allergies No known active allergiesdocumented as of this encounter (statuses as of 06/26/2023) Medications Medication Sig Dispensed Refills Start Date [...] mouth. 0 Active Vitamin D3 1.25 MG (94571 UT) Oral Capsule Take 1 Capsule by [...] as of this encounter (statuses as of 06/26/2023) Active Problems Problem Noted Date Encounter for surveillance of abnormal n gabby 06/26/2015 documented as of this encounter (statuses as of 06/26/2023) Social History Tobacco Use Types Packs/Day Years [...] - 06/26/2023 10:00 AM EDT [facility] [place] Nursing notes [...] Mike Hollis DO Avastin 1.25mg lot # [id number] Exp. Date: 07/28/23 * CAT Moore - [...] documented in this encounter Plan of Treatment Upcoming Encounters Date Type Specialty Care Team Description 07/07/2023 Office Visit Ophthalmology Mike Hollis DO [address] [place] [address] 07/31/2023 Office Visit Ophthalmology Mike Hollis, DO [address] [place] [address] Health Maintenance Due Date Last Done Comments [...] Thu11/04/23 at 0952, For 365 days Given 06/26/2023 10:34 AM EDT 1.25 mg Eye Right Given 04/23/2023 12:09 PM EDT 1.25 mg E ye Left Given 02/27/2023 11:42 AM EDT 1.25 mg E ye Left ROPivacaine (Naropin) inj 1.5 mg 1.5 mg, Injection, PRN Other, Starting on Thu11/04/22 at 0953, Until 11/04/23 at 0952, For 365 days Given 06/26/2023 10:34 AM EDT 1.5 mg Eye Right Given 04/23/2023 12:09 PM EDT 1.5 mg E ye Left Given 02/27/2023 11:41 AM EDT 1.5 mg E ye Left documented in this encounter Care Teams Pest Control Operator Relationship Specialty Start Date End Date Makayla Adan CRNP [address] [place] [address] PCP - General Nurse Practitioner 06/26/23 documented as of this encounter
--- OUTSIDE RECORDS SUMMARY | 2023-08-23 02:08 | External Medical Summary | Summary of Care ---
Author Name Unknown Organization [facility] Address [address] [facility] [place] [address] Phone [phone] Care Team Providers Care Natural Remedy Consultant Name Role Phone N[place]ers Makayla Nany ODUGLAS Primary Care Provider [phone] Reason for Visit * Reason Comments Follow Up 7-9 week f/u; pt rep orts OS feels like she has something in it right now, needs new glasses still * Precert (Within 10 days (routine)) - Authorized Specialty Diagnoses / Procedures Referred By Nasra pritchard Referred To Contact Ophthalmology Diagnoses Exudative age-related macular degeneration, left eye, with active choroidal neovascularization (HCC) Procedures AR BEVACIZUMAB INJECTION AR INTRAVITREAL NJX PHARMACOLOGIC AGT SPX Mike Hollis, DO [address] [place] [address] Referral ID Status Reason Start Date Expiration Date V isits Requested Visits Authorized [id number] Authorized Precert 11/04/2022 10/11/2099 999 [id number] Encounter Details Date Type Department Care Team Description 06/26/2023 Office Visit Ophthalmology, [facility] [address] [place] [address] Mike Hollis DO [address] [place] [address] Exudative age-related macular degeneration of left eye [...] mouth. 0 Active Vitamin D3 1.25 MG (78763 UT) Oral Capsule Take 1 Capsule by [...] - 06/26/2023 10:00 AM EDT [facility] [place] Nursing notes [...] to use ophthalmic ointment 3x/day as needed. Miek Hollis DO, performed the procedure in its entirety. documented in this encounter Nursing Notes * CAT Moore - 06/26/2023 10:33 AM EDT Amina Casillas to receive first Avastin 1.25mg Injection of the Right eye. Correct eye confirmed with patient and marked by Mike Hollis DO Avastin 1.25mg lot # [id number] Exp. Date: 07/28/23 * CAT Moore - [...] Hollis DO [address] [place] [address] 07/31/2023 Office Visit Ophthalmology Mike Hollis, DO [address] [place] [address] Health Maintenance Due Date Last Done Comments [...] Left documented in this encounter Care Teams Natural Remedy Consultant Relationship Specialty Start Date End Date Makayla Adan CRNP [address] [place] [address] PCP - General Nurse Practitioner 06/26/23 documented as of this encounter
--- OUTSIDE RECORDS SUMMARY | 2023-08-23 02:08 | External Medical Summary | Summary of Care ---
Author Name Unknown Organization [facility] Address [address] [facility] [place] [address] Phone [phone] Care Team Providers Care Dry Drug Worker Name Role Phone Chalo Doran DO Primary Care Provider [phone] Reason for Visit * Reason Comments Follow Up F/U 6-8 WEEKS-DIL/OC T OS; Denies changes * Precert (Within 10 days (routine)) - Authorized Specialty Diagnoses / Procedures Referred By Nasra pritchard Referred To Contact Ophthalmology Diagnoses Exudative age-related macular degeneration, left eye, with active choroidal neovascularization (HCC) Procedures [place] BEVACIZUMAB INJECTION W[place] INTRAVITREAL NJX PHARMACOLOGIC AGT SPX Mike Hollis DO [address] [place] [address] Referral ID Status Reason Start Date Expiration Date V isits Requested Visits Authorized [id number] Authorized Precert 11/04/2022 10/11/2099 [id number] Encounter Details Date Type Department Care Team Description 04/23/2023 Office Visit Ophthalmology, [facility] [address] [place] [address] Mike Hollis DO [address] [place] [address] Exudative age-related macular degeneration of left eye [...] mouth. 0 Active Vitamin D3 1.25 MG (83757 UT) Oral Capsule Take 1 Capsule by [...] - 04/23/2023 11:30 AM EDT [facility] [place] Nursing notes [...] 2.5% Phenylephrine @ 11:34AM Strabismus Exam Correction: or Observations: Ortho Distance Near Near +3DS N [...] documented in this encounter Nursing Notes * Nathanael Tellez RN - 04/23/2023 12:08 PM EDT Amina Casillas to receive fourth Avastin 1.25mg Injection of the Left eye. Correct eye confirmed with patient and marked by Mike Hollis DO Avastin 1.25mg lot # [id number] Exp. Date: 06/10/23 * Kailee Krishnan RN - 04/23/2023 11:39 [...] neovascularization (HCC)- Primary documented in this encounter Administered Medications Active Administered Medications - up to 3 most recent administrations Medication Order MAR Action Action Date Dose Rate Site bevaCIZumab (Avastin) inj 1.25 mg 1.25 mg, Intravitreal, PRN Other, Starting on Thu11/04/22 at 0953, Until Thu11/04/23 at 0952, For 365 days Given 04/23/2023 12:09 PM EDT 1.25 mg Eye Left Given 02/27/2023 11:42 AM EDT 1.25 mg E ye Left Given 01/13/2023 8:59 AM EDT 1.25 mg Ey e Left ROPivacaine (Naropin) inj 1.5 mg 1.5 mg, Injection, PRN Other, Starting on Thu11/04/22 at 0953, Until Thu11/04/23 at 0952, For 365 days Given 04/23/2023 12:09 PM EDT 1.5 mg Eye Left Given 02/27/2023 11:41 AM EDT 1.5 mg E ye Left Given 01/13/2023 8:58 AM EDT 1.5 mg Ey e Left documented in this encounter Care Teams Dry Drug Worker Relationship Specialty Start Date End Date Chalo Doran DO [address] [place] [address] PCP - General Family Medicine 12/24/20 documented as of this encounter
--- OUTSIDE RECORDS SUMMARY | 2023-08-23 02:08 | External Medical Summary | Summary of Care ---
Author Name Unknown Organization [facility] Address [address] [facility] [place] [address] Phone [phone] Care Team Providers Care Alodize Machine Operator Name Role Phone Loco Makayla DOUGLAS Primary Care Provider [phone] Reason for Visit * Reason Comments Follow Up 4-6 week f/u * Precert (Within 10 days (routine)) - Authorized Specialty Diagnoses / Procedures Referred By Nasra pritchard Referred To Contact Ophthalmology Diagnoses Exudative age-related macular degeneration, left eye, with active choroidal neovascularization (HCC) Procedures [place] BEVACIZUMAB INJECTION [place] INTRAVITREAL NJX PHARMACOLOGIC AGT SPX Mike Hollis DO [address] [place] [address] Referral ID Status Reason Start Date Expiration Date V isits Requested Visits Authorized [id number] Authorized Precert 11/04/2022 10/11/2099 [id number] Encounter Details Date Type Department Care Team Description 07/31/2023 Office Visit Ophthalmology, [facility] [address] [place] [address] Mike Hollis DO [address] [place] [id number] Exudative age-related macular degeneration of right eye with active choroidal neovascularization (HCC)*; Exudative age-related macular degeneration of left eye with active choroidal neovascularization (HCC) Allergies [...] mouth. 0 Active Vitamin D3 1.25 MG (09917 UT) Oral Capsule Take 1 Capsule by [...] encounter Progress Notes * Mike Hollis, - 07/31/2023 9:45 AM EDT [facility] [place] Nursing notes reviewed. Eye vitals reviewed. Mood and Affect: normal HPI: Amina Casillas is a 88 year old female who presents for evaluation of AMD No other eye complaints. Denies significant pain. Base Eye Exam Visual Acuity (Snellen - Linear) Right Left Dist cc 20/30 -2 20/200 -1 Dist ph cc NI Correction: Glasses Tonometry (Tonopen, 9:53 AM) Right Left Pressure 17 16 Pupils Pupils APD Right PERRL None Left PERRL None Visual Arnold (Counting fingers) Right Left Full Full Extraocular Movement Right Left Full, Ortho Full, Ortho Neuro/Psych Oriented x3: Yes Mood/Affect: Normal Dilation Both eyes: 0.5% Proparacaine @ 9:52 AM Dilation #2 Both eyes: 1.0% Mydriacyl, 2.5% Phenylephrine @ 9:52 AM Dilation #3 Both eyes: 1.0% Mydriacyl, 2.5% Phenylephrine @ 9:54 AM Dilation Comments Patient cautioned that effects of dilation may last 2-7 hours dependant upon individual reaction. It was discussed that driving while dilated is not recommended. Strabismus Exam Correction: sc Observations: Ortho Distance Near Near +3DS N [...] no RT/RD OCT Interpretation: OD: drusen, +PED, srfluid--improved 94um prior WORSE/NEW 78um OS: srlfuid, flattened PED rip, srmounding--STABLE, prior improved 72um A/P: 1. Age-Related Macular Degeneration OD: wet -Avastin 06/26/2023 -5 weeks OS: wet PED rip -Avastin 07/07/23, 04/23/23, 02/27/23, 01/13/23, 12/09/22, 11/04/22 -3.3 weeks; has gone 7-9 weeks 2. Posterior Vitreous Detachment OU -no [...] the eye that did not undergo the procedure. f/u 4-6 week for OCT OU Mike [...] documented in this encounter Nursing Notes * FARSHAD Li - 07/31/2023 10:35 AM EDT Amina Casillas to receive second Avastin 1.25mg Injection of the Right eye. Correct eye confirmed with patient and marked by Mike Hollis DO Avastin 1.25mg lot # [id number] Exp. Date: 08/17/23 * Kailee Krishnan RN - 07/31/2023 9:46 AM EDT Amina Casillas is a 88 year old year old female who presents for AMD OU. Last Office Visit: 07/07/2023 (in office), Visit date not found (telemedicine) Patient currently states no change in vision. Are you diabetic? No Do you drive? no OCT and Fundus image(s) of both eyes acquired and filed/scanned into chart. 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 (HCC) Ordered: 07/31/2023 Health Maintenance Due Date Last Done Comments DXA Scan 1935 Pneumococcal Vaccine: 65+ Years (1 - PCV) 1941 Depression Screening 1947 DTaP,Tdap,and Td Vaccines (1 - Tdap) 1954 COVID-19 Vaccine ( season) 2023 07/19/2022, 07/19/2022, 02/07/2022, Additional history [...] Diagnoses Diagnosis Exudative age-related macular degeneration of right eye with active choroidal neovascularization (HCC)- Primary Exudative age-related macular degeneration of left eye with active choroidal neovascularization (HCC) documented in this encounter Administered Medications Active Administered Medications - up to 3 most recent administrations Medication Order MAR Action Action Date Dose Rate Site bevaCIZumab (Avastin) inj 1.25 mg 1.25 mg, Intravitreal, PRN Other, Starting on Thu11/04/22 at 0953, Until Thu11/04/23 at 0952, For 365 days Given 07/31/2023 10:36 AM EDT 1.25 mg Eye Right Given 07/07/2023 9:54 AM EDT 1.25 mg Ey e Left Given 06/26/2023 10:34 AM EDT 1.25 mg E ye Right ROPivacaine (Naropin) inj 1.5 mg 1.5 mg, Injection, PRN Other, Starting on Thu11/04/22 at 0953, Until Thu11/04/23 at 0952, For 365 days Given 07/31/2023 10:37 AM EDT 1.5 mg Eye Right Given 07/07/2023 9:54 AM EDT 1.5 mg Ey e Left Given 06/26/2023 10:34 AM EDT 1.5 mg E ye Right documented in this encounter Care Teams Alodize Machine Operator Relationship Specialty Start Date End Date Makayla Adan CRNP [address] [place] [address] PCP - General Nurse Practitioner 06/26/23 documented as of this encounter
--- OUTSIDE RECORDS SUMMARY | 2023-08-23 02:08 | External Medical Summary | Summary of Care ---
Author Name Unknown Organization [facility] Address [address] [facility] [place] [address] Phone [phone] Care Team Providers Care Counter Intelligence Agent Name Role Phone Loco Makayla DOUGLAS Primary Care Provider [phone] Reason for Visit * Reason Comments Follow Up 4-6 week f/u * Precert (Within 10 days (routine)) - Authorized Specialty Diagnoses / Procedures Referred By Nasra pritchard Referred To Contact Ophthalmology Diagnoses Exudative age-related macular degeneration, left eye, with active choroidal neovascularization (HCC) Procedures TN BEVACIZUMAB INJECTION TN INTRAVITREAL NJX PHARMACOLOGIC AGT SPX Mike Hollis DO [address] [place] [address] Referral ID Status Reason Start Date Expiration Date V isits Requested Visits Authorized [id number] Authorized Precert 11/04/2022 10/11/[phone] Encounter Details Date Type Department Care Team Description 07/31/2023 Office Visit Ophthalmology, [facility] [address] [place] [address] Mike Hollis DO [address] [place] [address] Exudative age-related macular degeneration of right eye [...] mouth. 0 Active Vitamin D3 1.25 MG (82568 UT) Oral Capsule Take 1 Capsule by [...] - 07/31/2023 9:45 AM EDT [facility] [place] Nursing notes [...] Mike Hollis DO Avastin 1.25mg lot # [id number] Exp. Date: 08/17/23 * Kailee Krishnan RN [...] Right documented in this encounter Care Teams Counter Intelligence Agent Relationship Specialty Start Date End Date Makayla Adan CRNP [address] [place] [address] PCP - General Nurse Practitioner 06/26/23 documented as of this encounter
--- OUTSIDE RECORDS SUMMARY | 2023-08-23 02:08 | External Medical Summary | Continuity of Care Document ---
Author Name Unknown Organization [address] Address [address] [place], [place] [id number] Care Team Providers Care Milking Machine Technician Name Role Phone Makayla Adan Primary Care Physician [phone] Encounter [facility] [id number] Date(s): 07/21/23 - 07/21/[address] [address] [phone] Encounter Diagnosis Hypertension(Discharge Diagnosis) - 07/21/23 LVH (left ventricular hypertrophy)(Discharge Diagnosis) - 07/21/23 Lower extremity edema(Discharge Diagnosis) - 07/21/23 Urinary incontinence, mixed(Discharge Diagnosis) - 07/21/23 GERD (gastroesophageal reflux disease)(Discharge Diagnosis) - 07/21/23 Venous insufficiency, peripheral(Discharge Diagnosis) - 07/21/23 Fatigue(Discharge Diagnosis) - 07/21/23 Discharge Disposition: Home or Self Care Attending Physician: STELLA Adan Tara Allergies, Adverse Reactions, Alerts No Known Medication Allergies Assessment and Plan Extracted from: Title:follow up Author:STELLA Adan Tara Date: 1.Hypertension Acute/Chronic: chronic Goal:Resolution/ control Status:stable/controlled Data: records/pt report Plan: Well controlled. Contd present regimen. 2.LVH (left ventricular hypertrophy) 3.Lower extremity edema 4.Venous insufficiency, peripheral Acute/Chronic: chronic Goal:Resolution/ control Status:stable/controlled Data: records/pt report Plan: Swelling in legs is minimal. 5.Urinary incontinence, mixed Acute/Chronic: chronic Goal:Resolution/ control Status:stable/controlled Data: records/pt report Plan: She has tried several meds with no relief of incontinence. 6.GERD (gastroesophageal reflux disease) Acute/Chronic: chronic Goal:Resolution/ control Status:stable/controlled Data: records/pt report Plan: Well controlled. 7.Fatigue Acute/Chronic: chronic Goal:Resolution/ control Status:stable/controlled Data: records/pt report Plan: Will check cbc, iron studies, folic acid. b12, tsh. time spent reviewing chart, face to face visit, ordersand documentation: 34 min Immunizations Given and Recorded Vaccine Date Status Refusal Reason influenza virus vaccine, inactivated 1 07/19/22 Re corded influenza virus vaccine, inactivated 07/09/21 Give n SARS-CoV-2 mRNA (tozinameran 5y-11y) 2 07/19/22 Re corded SARS-CoV-2 (COVID-19) mRNA BNT-162b2 vax 3 11/17/20 Recorded zoster vaccine, inactivated 4 01/17/19 Recorded zoster vaccine, inactivated 5 10/08/18 Recorded pneumococcal 23-valent vaccine 6 10/26/17 Recorded tetanus/diphtheria/pertuss, acel (Tdap) 7 08/09/16 Recorded pneumococcal 13-valent vaccine 8 07/18/15 Recorded influenza virus vaccine, H1N1 9 10/23/09 Recorded 1Result Comment: Avi 2Result Comment: Avi 3Result Comment: 2020-11-19: Historical information-source unspecified 4Result Comment: 2020-10-25: Historical information-source unspecified 5Result Comment: 2020-10-25: Historical information-source unspecified 6Result Comment: 2020-10-25: Historical information-source unspecified 7Result Comment: 2020-10-25: Historical information-source unspecified 8Result Comment: 2020-10-25: Historical information-source unspecified 9Result Comment: 2020-10-25: Historical information-source unspecified Medications Benadryl 25 mg oral capsule Start: 10/25/20 9:44:00 EST, 1 cap, PO, tid, PRN: as needed for allergy symptoms Start Date: 10/25/20 Status: Ordered Centrum Women's Start: 10/25/20 9:43:00 EST, 1 tab, PO, Daily Start Date: 10/25/20 Status: Ordered Co Q-10 100 mg oral capsule Start: 10/25/20 9:43:00 EST, 1 cap, PO, Daily Start Date: 10/25/20 Status: Ordered desonide 0.05% topical cream Start: 06/03/22 10:25:00 EDT, 1 appl, topical, bid, Disp# 15 g, Refills: 4, to affected area, Pharmacy: [facility] Start Date: 06/03/22 Status: Ordered hydrALAZINE 25 mg oral tablet Start: 07/15/23 15:45:00 EDT, 1 tab, PO, tid, Disp# 90 tab, Refills: 2, Pharmacy: [facility] Start Date: 07/15/23 Status: Ordered Lexapro 10 mg oral tablet Start: 12/22/22 13:20:00 EDT, 1 tab, PO, Daily, Disp# 30 tab, Refills: 11, Pharmacy: [facility] Start Date: 12/22/22 Status: Ordered losartan 100 mg oral tablet Start: 03/16/23 11:22:00 EDT, See Instructions, Disp# 90 tab, Refills: 3, Take 1 tablet by mouth once daily, Pharmacy: [facility] Start Date: 03/16/23 Status: Ordered Metamucil Start: 12/12/22 13:24:00 EST Start Date: 12/12/22 Status: Ordered oxybutynin 5 mg/24 hours oral tablet, extended release Start: 01/12/23 10:17:00 EDT, 1 tab, PO, Daily, Disp# 30 tab, Refills: 3, PRN: as needed for urinary discomfort, Pharmacy: [facility] Start Date: 01/12/23 Stop Date: 05/12/23 Status: Ordered Pepcid AC Maximum Strength 20 mg oral tablet Start: 10/25/20 9:44:00 EST, 1 tab, PO, Daily, if needed Start Date: 10/25/20 Status: Ordered PreserVision AREDS Start: 12/12/22 13:24:00 EST Start Date: 12/12/22 Status: Ordered spironolactone 50 mg oral tablet Start: 07/14/23 19:54:00 EDT, 1 tab, PO, Daily, Disp# 30 tab, Refills: 11, Note to Pharmacy: disregard bid rx, Pharmacy: [facility] Start Date: 07/14/23 Stop Date: 07/08/24 Status: Ordered traMADol 50 mg oral tablet Start: 10/24/21 13:20:00 EST, See Instructions, take 3 times daily as needed Start Date: 10/24/21 Status: Ordered triamcinolone 0.1% topical cream Start: 08/28/22 10:14:00 EST, 1 appl, topical, bid, Disp# 60 g, Refills: 3, Pharmacy: [facility] Start Date: 08/28/22 Status: Ordered unknown medication Start: 10/25/20 9:42:00 EST, See Instructions, trubiotics one daily Start Date: 10/25/20 Status: Ordered Vitamin B12 50 mcg oral tablet Start: 05/30/21 9:11:00 EDT, 1 tab, PO, Daily Start Date: 05/30/21 Status: Ordered Vitamin D3 Start: 07/04/21 15:55:00 EDT, 2,000 units in am Start Date: 07/04/21 Status: Ordered zinc (as gluconate) 50 mg oral tablet Start: 10/25/20 9:43:00 EST, one daily Start Date: 10/25/20 Status: Ordered Zofran 4 mg oral tablet Start: 04/15/23 16:22:00 EDT, 1 tab, PO, tid, Disp# 15 tab, Refills: 3, PRN: as needed for nausea/vomiting, Pharmacy: [facility] Start Date: 04/15/23 Status: Ordered Mental Status 07/21/23 Barriers to Learning one year None evide nt Mandatory Health Literacy Documentation Yes Health Literacy Communication Barriers N ever Primary Language Sinhala Problem List Condition Confirmation Course Effective Dates Status H ealth Status Informant Aortic root dilation Confirmed Active Depression Confirmed Active Lower extremity edema Confirmed Active Fatigue Confirmed Active GERD (gastroesophageal reflux disease) Confirmed Active Hypertension Confirmed Active LVH (left ventricular hypertrophy) Confirmed Active Colon cancer Confirmed Active Urinary incontinence, mixed Confirmed Active Venous insufficiency, peripheral Confirmed Active Idiopathic polyneuropathy Confirmed Active Restless leg Confirmed Active Spinal stenosis Confirmed Active Diagnosis Diagnosis Type Effective Dates Health Status Clinical Service Informant Hypertension Discharge Diagnosis 07/21/23 LVH (left ventricular hypertrophy) Discharge Diagnosis 07/21/23 Lower extremity edema Discharge Diagnosis 07/21/23 Urinary incontinence, mixed Discharge Diagnosis 07/21/23 GERD (gastroesophageal reflux disease) Discharge Diagnosis 07/21/23 Venous insufficiency, peripheral Discharge Diagnosis 07/21/23 Fatigue Discharge Diagnosis 07/21/23 Non-Specified Procedures Procedure Date Related Diagnosis Body Site Status Intravitreal steroid injection 1 04/23/23 Completed Lumbar epidural steroid injection 02/17/23 Completed Eye injection 2 01/13/23 Completed Eye injection 3 12/2022 Completed Eye examination 4 11/04/[address] 5 09/10/22 Completed Lumbar epidural steroid injection 05/20/[address] of abdomen and pelvis wit h intravenous contrast 6 02/28/22 Completed Echocardiogram 7 06/28/21 Complete d Lumbar epidural steroid injection 35 Completed X-ray 8 Completed 1avastin 1.25 mg injection left eye 2left eye 3left eye 4intravitreal injection of Avastin 1.25 mg left eye 5[facility] Impression: 1. There is no hemorrhage, mass effect, or evidence of acute territorial ischemia by CT criteria 2. Unremarkable CT angiogram of the brain 3. Unremarkable angiogram of the neck 61. interval development of acute diverticulitis of the descending colon with pericolonic inflammatory changes and fluid present. no evidence for perforation, abscess or free air 2. large periumbillical hernia with loops of bowel is again seen. no obstruction is identified. 3. additional nonacute findings are delineated in report 7Summary: Left ventricular systolic function is normal. There is moderate concentric left ventricular hypertrophy The left atrium is moderately dilated. The right atrium is mild to moderately dilated. Mild aortic regurgitation There is mild mitral regurgitation Right ventricular systolic pressure is elevated at 40-50 mm HG. Mild aortic root dilatation Mildly dilated ascending aorta The inferior vena cava is mildly dilated with a decrease in inspiratory collapse. 8xr ankle rt min 3 v routine impression no acute fracture or dislocation within the rt ankle. Ankle soft tissue swelling. Vital Signs Most recent to oldest [Reference Range]: 1 Patient Weight 86.4 kg (07/21/23 9:10 AM) Temperature [36.5-37.9 DegC] 36.6 DegC (07/21/23 9:10 AM) Heart Rate 88 bpm (07/21/23 9:10 AM) Respiratory Rate 17 br/min (07/21/23 9:10 AM) Blood Pressure 124/80mmHg (07/21/23 9:10 AM) Social History Social History Type Response Smoking Status Never smoked cigaret daryl Sex Female FCM Outpt Note * STELLA Adan Tara: PERFORM Event Display: FCM Outpt Note Authored Date: [id number] Chief Complaint 3 month F/U. Wants to discuss if she should be taking potassium? Also wants ears checked History of Present Illness She is getting injections for macular degeneration. She is not having dizziness/nausea as much. Getting injection for left shoulder. Had back/hip injection but it did not work as well. Would like her ears checked. She decided not to proceed with colonoscopy. She reports feeling tired. Review of Systems Constitutional: No fever, chills, sweats EENT:No eye pain, rhinorrhea, sinus pain, epistaxis, dysphagia, change in hearing, tinnitus, vertigo, oral ulcers or lesions. Pulmonary: No shortness of breath, dyspnea with exertion, cough, hemoptysis, wheezing, chest pain. Cardiovascular: No chest pain, palpitations, syncope, edema, cyanosis, claudication, orthopnea. GI: No nausea, vomiting, diarrhea, melena, hematochezia, change in appetite, abdominal pain, changein bowel habits or stools Musculoskeletal: left shoulder pain Neurologic: No headache, lightheadedness, dizziness. +lower ext Neuropathy Psychiatric: No depression, anxiety Endocrine: No weight change, heat or cold intolerance, tremor, insomnia, polyuria, polydipsia, polyphagia, abnormal hair growth, change in nails Physical Exam Vitals & Measurements T:36.6C HR:88(Monitored) RR:17 BP:124/80 SpO2:94% WT:86.400kg(Dosing) WT:86.4kg PHQ2 Data(Data Documented on:07/21/2023 09:10) Emotional health assessment NEGATIVE head- normocephalic eyes- PERRLA , conjunctiva clear, sclera white, anicteric, neck-no lymphadenopathy, masses, or thyromegaly, +carotid pulses, no bruits, trachea midline Pulmonary- chest expansion symmetric, CTA (clear to auscultation), eupnea, no adventitious sounds (rales, crackles, wheezes) CV (cardiovascular)- RRR no m/r/g (systolic ejection murmur, rubs, gallops), good peripheral perfusion extremitiesNo edema or erythema. skin-good turgor w/o lesions, redness, cyanosis, edema nails- no clubbing or deformities w good cap refill Neuro:Alert, Oriented Psy:no homicidal or suicidal ideations. Assessment/Plan 1.Hypertension Acute/Chronic: chronic Goal:Resolution/ control Status:stable/controlled Data: records/pt report Plan:Well controlled. Contd present regimen. 2.LVH (left ventricular hypertrophy) 3.Lower extremity edema 4.Venous insufficiency, peripheral Acute/Chronic: chronic Goal:Resolution/ control Status:stable/controlled Data: records/pt report Plan:Swelling in legs is minimal. 5.Urinary incontinence, mixed Acute/Chronic: chronic Goal:Resolution/ control Status:stable/controlled Data: records/pt report Plan:She has tried several meds with no relief of incontinence. 6.GERD (gastroesophageal reflux disease) Acute/Chronic: chronic Goal:Resolution/ control Status:stable/controlled Data: records/pt report Plan:Well controlled. 7.Fatigue Acute/Chronic: chronic Goal:Resolution/ control Status:stable/controlled Data: records/pt report Plan:Will check cbc, iron studies, folic acid. b12, tsh. time spent reviewing chart, face to face visit, ordersand documentation: 34 min Problem List/Past Medical History Ongoing Aortic root dilation Colon cancer Depression Fatigue GERD (gastroesophageal reflux disease) Hypertension Idiopathic polyneuropathy Lower extremity edema LVH (left ventricular hypertrophy) Restless leg Spinal stenosis Urinary incontinence, mixed Venous insufficiency, peripheral Historical Chronic back pain Procedure/Surgical History Intravitreal steroid injection (04/23/2023)Lumbar epidural steroid injection (02/17/2023)Eye injection (01/13/2023)Eye injection (Week of 12/10/2022)Eye examination (11/04/2022)HeadCT (09/10/2022)Lumbar epidural steroid injection (05/20/2022)CT of abdomen and pelvis with int ravenous contrast (02/28/2022)Echocardiogram (06/28/2021)Lumbar epidural steroid injection (1935)X-ray Medications cholecalciferol(Vitamin D3) cyanocobalamin(Vitamin B12 50 mcg oral tablet), 50 mcg= 1 tab, PO, Daily desonide topical(desonide 0.05% topical cream), 1 appl, topical, bid, 4 refills diphenhydrAMINE(Benadryl 25 mg oral capsule), 25 mg= 1 cap, PO, tid, PRN escitalopram(Lexapro 10 mg oral tablet), 10 mg= 1 tab, PO, Daily, 11 refills famotidine(Pepcid AC Maximum Strength 20 mg oral tablet), 20 mg= 1 tab, PO, Daily hydrALAZINE(hydrALAZINE 25 mg oral tablet), 1 tab, PO, tid losartan(losartan 100 mg oral tablet), See Instructions, 3 refills multivitamin with minerals(PreserVision AREDS) multivitamin with minerals(Centrum Women's), 1 tab, PO, Daily ondansetron(Zofran 4 mg oral tablet), 4 mg= 1 tab, PO, tid, PRN, 3 refills oxybutynin(oxybutynin 5 mg/24 hours oral tablet, extended release), 5 mg= 1 tab, PO, Daily, PRN, 3 refills psyllium(Metamucil) spironolactone(spironolactone 50 mg oral tablet), 50 mg= 1 tab, PO, Daily, 11 refills traMADol(traMADol 50 mg oral tablet), See Instructions triamcinolone topical(triamcinolone 0.1% topical cream), 1 appl, topical, bid, 3 refills ubiquinone(Co Q-10 100 mg oral capsule), 100 mg= 1 cap, PO, Daily unknown medication, See Instructions zinc gluconate(zinc (as gluconate) 50 mg oral tablet) Allergies No Known Medication Allergies Social History Smoking Status Never smoked cigarettes Immunizations Vaccine Date Status influenza virus vaccine, inactivated 07/19/2022 Recorded Comments : Edouardmacho SARS-CoV-2 mRNA (tozinamnuvian 5y-11y) 07/19/2022 Recorded Comments : Avi influenza virus vaccine, inactivated 07/09/2021 Given SARS-CoV-2 (COVID-19) mRNA BNT-162b2 vax 11/17/2020 Recorded Comments : 2020-11-19: Historical information-source unspecified zoster vaccine, inactivated 01/17/2019 Recorded Comments : 2020-10-25: Historical information-source unspecified zoster vaccine, inactivated 10/08/2018 Recorded Comments : 2020-10-25: Historical information-source unspecified pneumococcal 23-valent vaccine 10/26/2017 Recorded Comments : 2020-10-25: Historical information-source unspecified tetanus/diphtheria/pertuss, acel (Tdap) 08/09/2016 Recorded Comments : 2020-10-25: Historical information-source unspecified pneumococcal 13-valent vaccine 07/18/2015 Recorded Comments : 2020-10-25: Historical information-source unspecified influenza virus vaccine, H1N1 10/23/2009 Recorded Comments : 2020-10-25: Historical information-source unspecified Recommendations Health Maintenance Pending(in the next year) OverDue Adult Influenza Vaccine due04/11/23and every 1year Due Adult COVID-19 Vaccination due07/21/23Unknown Frequency Falls Plan of Care due07/21/23Unknown Frequency Due In Future Medicare Annual Wellness Visit not due until12/13/23and every 1year Body Mass Index not due until07/20/24and every 1year Satisfied(in the past 1 year) Satisfied Body Mass Index on04/15/23.Satisfied by YOLANDA Mota Bobbi Medicare Annual Wellness Visit on12/12/22.Satisfied by STELLA Adan Tara Electronic Signature on File Electronically Reviewed/Signed by: STELLA Salgado Author Signature Dt/Tm:07/21/2023 10:11 AM Department of Family Medicine TB Patient Care team information Care Team Personnel Name: STELLA Adan Tara Position: Nurse Pract - Family Med Member Role: Primary Care Provider Address: Address: [address] [place] [address], [place] [address] [place] Care Team Related Persons Name: KILO CAMARENA Name: ALMA AWAD Address: [address], [id number]
--- OUTSIDE RECORDS SUMMARY | 2023-08-23 02:08 | External Medical Summary | Summary of Care ---
Author Name Unknown Organization [facility] Address [address] [facility] [place] [address] Phone [phone] Care Team Providers Care Sausage Inspector Name Role Phone Chalo Doran DO Primary Care Provider [phone] Reason for Visit * Reason Comments Follow Up F/U 6-8 WEEKS-DIL/OC T OS; Denies changes * Precert (Within 10 days (routine)) - Authorized Specialty Diagnoses / Procedures Referred By Nasra pritchard Referred To Contact Ophthalmology Diagnoses Exudative age-related macular degeneration, left eye, with active choroidal neovascularization (HCC) Procedures HI BEVACIZUMAB INJECTION HI INTRAVITREAL NJX PHARMACOLOGIC AGT SPX Mike Hollis DO [address] [place] [address] Referral ID Status Reason Start Date Expiration Date V isits Requested Visits Authorized [id number] Authorized Precert 11/04/2022 10/11/2099 [id number] Encounter Details Date Type Department Care Team Description 04/23/2023 Office Visit Ophthalmology, [facility] [address] [place] [address] Mike Hollis DO [address] [place] [address] Exudative age-related macular degeneration of left eye with active choroidal neovascularization (HCC)* Allergies No known active allergiesdocumented as of this encounter (statuses as of 06/16/2023) Medications Medication Sig Dispensed Refills Start Date [...] mouth. 0 Active Vitamin D3 1.25 MG (14832 UT) Oral Capsule Take 1 Capsule by [...] 0 Active Losartan Potassium-HCTZ 100-12.5 MG per tabletIndications:HC TZ 25MG Daily Indications: HCTZ 25MG 0 04/27/2015 3 Discontinued (Medication List Clean Up) traMADol 25 MG PO Tablet Take 5 Tablets by mouth every 6 hours as needed. 0 3 Discontinued (Medication List Clean Up) Pramipexole Dihydrochloride 0.25 MG Oral Tablet (Mirapex) Take 2 Tablets by mouth in the morning. 0 3 Discontinued (Medication List Clean Up) Spironolactone 25 MG Oral Tablet (Aldactone) 0 08/07/2021 3 Discontinued (Medication List Clean Up) hydrALAZINE HCl 10 MG Oral Tablet (Apresoline) 0 08/19/2021 3 Discontinued (Medication List Clean Up) Oxybutynin Chloride ER 5 MG Oral Tablet Extended Release 24 Hour (Ditropan XL) Take 1 Tablet by mouth as needed. 0 01/12/2023 3 Hospital, Clinic, or Other Facility Administered Medication [...] as of this encounter (statuses as of 06/16/2023) Active Problems Problem Noted Date Encounter for surveillance of abnormal n gabby 06/26/2015 documented as of this encounter (statuses as of 06/16/2023) Social History Tobacco Use Types Packs/Day Years [...] - 04/23/2023 11:30 AM EDT [facility] [place] Nursing notes reviewed. [...] Dr Roberts F/u 7-9 weeks, OCT OU iMke Hollis DO CC: Shirlene Claros, OD CC: [...] 12:08 PM EDT Amina Casillas to receive # 5Avastin 1.25mg Injection of the Left eye. Correct eye confirmed with patient and marked by Mike Hollis DO Avastin 1.25mg lot # [id number] Exp. Date: 06/10/23 * Kailee Krishnan RN [...] Encounters Date Type Specialty Care Team Description 06/26/2023 Office Visit Ophthalmology Mike Hollis, DO [address] [place] [address] Health Maintenance Due Date Last Done Comments [...] Left documented in this encounter Care Teams Sausage Inspector Relationship Specialty Start Date End Date Chalo Doran DO [address] [place] [address] PCP - General Family Medicine 12/24/20 documented as of this encounter
--- OUTSIDE RECORDS SUMMARY | 2023-08-23 02:08 | External Medical Summary | Summary of Care ---
Author Name Unknown Organization [facility] Address [address] [facility] [place] [address] Phone [phone] Care Team Providers Care Lift Mechanic Name Role Phone Makayla Adan Primary Care Provider [phone] Reason for Visit * Reason Comments Follow Up Avastin OS injection today * Precert (Within 10 days (routine)) - Authorized Specialty Diagnoses / Procedures Referred By Nasra pritchard Referred To Contact Ophthalmology Diagnoses Exudative age-related macular degeneration, left eye, with active choroidal neovascularization (HCC) Procedures IA BEVACIZUMAB INJECTION IA INTRAVITREAL NJX PHARMACOLOGIC AGT SPX Mike Hollis DO [address] [place] [address] Referral ID Status Reason Start Date Expiration Date V isits Requested Visits Authorized [id number] Authorized Precert 11/04/2022 10/11/2099 [id number] Encounter Details Date Type Department Care Team Description 07/07/2023 Office Visit Ophthalmology, [facility] [address] [place] [address] Mike Hollis DO [address] [place] [address] Exudative age-related macular degeneration of left eye with active choroidal neovascularization (HCC)* Allergies No known active allergiesdocumented as of this encounter (statuses as of 07/07/2023) Medications Medication Sig Dispensed Refills Start Date [...] mouth. 0 Active Vitamin D3 1.25 MG (19285 UT) Oral Capsule Take 1 Capsule by [...] as of this encounter (statuses as of 07/07/2023) Active Problems Problem Noted Date Encounter for surveillance of abnormal n gabby 06/26/2015 documented as of this encounter (statuses as of 07/07/2023) Social History Tobacco Use Types Packs/Day Years Used Date Smoking Tobacco: Never Smokeless Tobacco: Never Tobacco Cessation:Counseling Given: No Alcohol Use Standard Drinks/Week Comments Yes 1 (1 standard drink = 0.6 oz pur e alcohol) occasionally Sex Assigned at Date Recorded Not on file Job Start Date Occupation Industry Not on file Not on file Not on file documented as of this encounter Progress Notes * Mike Hollis DO - 07/07/2023 9:45 AM EDT TIMEOUT PROCEDURE: correct patient identity-YES correct procedure [...] Nursing Notes * Nathanael Tellez RN - 07/07/2023 9:52 AM EDT Amina Casillas to receive sixth Avastin 1.25mg Injection of the Left eye. Correct eye confirmed with patient and marked by Mike Hollis DO Avastin 1.25mg lot # [id number] Exp. Date: 08/03/23 * Nathanael Tellez RN - 07/07/2023 9:38 AM EDT Amina Casillas is a 88 year old year old female who presents for AMD. Last Office Visit: 06/26/2023 (in office), Visit date not found (telemedicine) Patient currently states no change in vision. Are you diabetic? No Do you drive? no documented in this encounter Plan of Treatment Upcoming Encounters Date Type Specialty Care Team Description 07/31/2023 Office Visit Ophthalmology Mike Hollis, DO [address] [place] [address] Health Maintenance Due Date Last Done Comments [...] Left documented in this encounter Care Teams Lift Mechanic Relationship Specialty Start Date End Date Makayla Adan CRNP [address] [facility] [place] [address] PCP - General Nurse Practitioner 06/26/23 documented as of this encounter
--- OUTSIDE RECORDS SUMMARY | 2023-08-23 02:08 | External Medical Summary | Continuity of Care Document ---
Author Name Unknown Organization [address] Address [address] [place], [place] [id number] Care Team Providers Care Ax Survey Worker Name Role Phone Makayla Adan Primary Care Physician [phone] Encounter [facility] [id number] Date(s): 08/10/23 - 08/10/[address] [place] [address] [phone] Encounter Diagnosis Lower extremity edema(Discharge Diagnosis) - 08/10/23 Shoulder pain(Discharge Diagnosis) - 08/10/23 Discharge Disposition: Home or Self Care Attending Physician: STELLA Adan Tara Referring Physician: STELLA Adan Tara Allergies, Adverse Reactions, Alerts No Known Medication Allergies Assessment and Plan Extracted from: Title:leg swelling Author:STELLA Adan Tara Date :08/10/23 1.Lower extremity edema Acute/Chronic: chronic Goal:Resolution/ control Status:stable/controlled Data: records/pt report Plan: Discussed again with pt that she needs to watch salt intake. Also if she is been up on her feet more her legs may swell more. She should wear compression stockings and put legs up. He weight is stable, lungs clear so unlikely due to heart but rather RVD/venous insufficiency. 2.Shoulder pain Acute/Chronic: chronic Goal:Resolution/ control Status:stable/controlled Data: records/pt report Plan:Follow up with pain management for MRI. Explained that cannot order anything stronger than tramadol that she already has as it may cause confusion or sedation. Can use voltaren gel 4times a day and lido patches. Also heat. time spent reviewing chart, face to face visit, ordersand documentation: 33 min Immunizations Given and Recorded Vaccine Date [...] g, Refills: 4, to affected area, Pharmacy: [facility] Start Date: 06/03/22 Status: Ordered hydrALAZINE 25 mg oral tablet Start: 07/15/23 15:45:00 EDT, 1 tab, PO, tid, Disp# 90 tab, Refills: 2, Pharmacy: [facility] Start Date: 07/15/23 Status: Ordered Lexapro 10 mg oral tablet Start: 12/22/22 13:20:00 EDT, 1 tab, PO, Daily, Disp# 30 tab, Refills: 11, Pharmacy: [facility] [id number] Start Date: 12/22/22 Status: Ordered losartan 100 mg oral tablet Start: 03/16/23 11:22:00 EDT, See Instructions, Disp# 90 tab, Refills: 3, Take 1 tablet by mouth once daily, Pharmacy: [facility] [id number] Start Date: 03/16/23 Status: Ordered Metamucil Start: 12/12/22 13:24:00 EST Start Date: 12/12/22 Status: Ordered oxybutynin 5 mg/24 hours oral tablet, extended release Start: 01/12/23 10:17:00 EDT, 1 tab, PO, Daily, Disp# 30 tab, Refills: 3, PRN: as needed for urinary discomfort, Pharmacy: [facility] [id number] Start Date: 01/12/23 Stop Date: 05/12/23 Status: [...] Note to Pharmacy: disregard bid rx, Pharmacy: [facility] [id number] Start Date: 07/14/23 Stop Date: 07/08/24 Status: Ordered traMADol 50 mg oral tablet Start: 10/24/21 13:20:00 EST, See Instructions, take 3 times daily as needed Start Date: 10/24/21 Status: Ordered triamcinolone 0.1% topical cream Start: 08/28/22 10:14:00 EST, 1 appl, topical, bid, Disp# 60 g, Refills: 3, Pharmacy: [facility] [id number] Start Date: 08/28/22 Status: Ordered unknown medication [...] 3, PRN: as needed for nausea/vomiting, Pharmacy: [facility] Start Date: 04/15/23 Status: Ordered Mental Status 08/10/23 Barriers to Learning one year None evide nt Mandatory Health Literacy Documentation Yes Health Literacy Communication Barriers N ever Primary Language Yakut Problem List Condition Confirmation Course Effective Dates [...] Diagnosis Diagnosis Type Effective Dates Health Status Cl inical Service Informant Lower extremity edema Discharge Diagnosis 08/10/23 Shoulder pain Discharge Diagnosis 08/10/23 Procedures Procedure Date Related Diagnosis Body Site [...] of Avastin 1.25 [facility] Impression: 1. There is no hemorrhage, mass [...] to oldest [Reference Range]: 1 Patient Weight 86.8 kg (08/10/23 9:08 AM) Heart Rate 69 bpm (08/10/23 9:08 AM) Respiratory Rate 16 br/min (08/10/23 9:08 AM) Blood Pressure 142/78mmHg (08/10/23 9:08 AM) Cuff Pulse Pressure 64 mmHg (08/10/23 9:08 AM) Social History Social History Type Response Smoking Status Never smoked cigaret daryl Sex Female [facility] Outpt Note * STELLA Adna Tara: PERFORM Event Display: [facility] Outpt Note Authored Date: Chief Complaint foot and ankle swelling since thursday History of Present Illness Pt legs and feet were swollen last week. She denies eating more salty foods, or being up on her feet more. She is also having left shoulder pain. She saw [facility] and had injection but it did not help. [place] [facility] [place] and they have ordered MRI. Review of Systems Constitutional: No fever, chills, sweats Pulmonary: No shortness of breath, dyspnea with exertion, cough, hemoptysis, wheezing, chest pain. Cardiovascular: No chest pain, palpitations, syncope, edema, cyanosis, claudication, orthopnea. trace edema in muriel lower ext. Musculoskeletal: No joint swelling or pain, muscle pain, back pain. Left shoulder pain Neurologic: No headache, lightheadedness, dizziness Physical Exam Vitals & Measurements HR:69(Monitored) RR:16 BP:142/78 SpO2:95% WT:86.8kg WT:86.800kg(Dosing) PHQ2 Data(Data Documented on:08/10/2023 09:08) Emotional health assessment NEGATIVE head- normocephalic Pulmonary- chest expansion symmetric, CTA (clear to auscultation), eupnea, no adventitious sounds (rales, crackles, wheezes) CV (cardiovascular)- RRR no m/r/g (systolic ejection murmur, rubs, gallops), good peripheral perfusion extremitiestrace edema in muriel lower ext. skin-good turgor w/o lesions, redness, cyanosis, edema nails- no clubbing or deformities w good cap refill Neuro:Alert, Oriented Psy:no homicidal or suicidal ideations. Assessment/Plan 1.Lower extremity edema Acute/Chronic: chronic Goal:Resolution/ control Status:stable/controlled Data: records/pt report Plan:Discussed again with pt that she needs to watch salt intake. Also if she is been up on her feet more her legs may swell more. She should wear compression stockings and put legs up. He weight is stable, lungs clear so unlikely due to heart but rather RVD/venous insufficiency. 2.Shoulder pain Acute/Chronic: chronic Goal:Resolution/ control Status:stable/controlled Data: records/pt report Plan:Follow up with pain management for MRI. Explained that cannot order anything stronger than tramadol that she already has as it may cause confusion or sedation. Can use voltaren gel 4times a day and lido patches. Also heat. time spent reviewing chart, face to face visit, ordersand documentation: 33 min Problem List/Past Medical History Ongoing Aortic [...] virus vaccine, inactivated 07/19/2022 Recorded Comments : Avi SARS-CoV-2 mRNA (torrie 5y-11y) 07/19/2022 Recorded Comments : Avi influenza [...] due04/11/23and every 1year Due Adult COVID-19 Vaccination due08/10/23Unknown Frequency Falls Plan of Care due08/10/23Unknown Frequency Due In Future Medicare Annual Wellness Visit not due until12/13/23and every 1year Body Mass Index not due until08/09/24and every 1year Satisfied(in the past 1 year) Satisfied Body Mass Index on04/15/23.Satisfied by YOLANDA Mota Bobbi Medicare Annual Wellness Visit on12/12/22.Satisfied by STELLA Adan Tara Electronic Signature on File Electronically Reviewed/Signed by: STELLA Salgado Author Signature Dt/Tm:08/10/2023 10:23 AM Department of Family Medicine TB Patient Care team information Care Team Personnel Name: STELLA Adan Tara Position: Nurse Pract - Family Med Member Role: Primary Care Provider Address: Address: [address] [place] [address] Care Team Related Persons Name: KILO CAMARENA Name: DELMI, EDWARD A Address: home [address] [place] [address], [phone]
--- OUTSIDE RECORDS SUMMARY | 2023-08-23 02:08 | External Medical Summary | Summary of Care ---
Author Name Unknown Organization [facility] Address [address] [facility] [place] [address] Phone [phone] Care Team Providers Care Mainframe Consultant Name Role Phone Chalo Doran DO Primary Care Provider [phone] Reason for Visit * Reason Comments Follow Up F/U 6-8 WEEKS-DIL/OC T OS; Denies changes * Precert (Within 10 days (routine)) - Authorized Specialty Diagnoses / Procedures Referred By Nasra pritchard Referred To Contact Ophthalmology Diagnoses Exudative age-related macular degeneration, left eye, with active choroidal neovascularization (HCC) Procedures WY BEVACIZUMAB INJECTION WY INTRAVITREAL NJX PHARMACOLOGIC AGT SPX Mike Hollis DO [address] [place] [address] Referral ID Status Reason Start Date Expiration Date V isits Requested Visits Authorized [id number] Authorized Precert 11/04/2022 10/11/2099 999 [id number] Encounter Details Date Type Department Care Team Description 04/23/2023 Office Visit Ophthalmology, [facility] [address] [place] [address] Mike Hollis DO [address] [place] [address] Exudative age-related macular degeneration of left eye [...] mouth. 0 Active Vitamin D3 1.25 MG (52179 UT) Oral Capsule Take 1 Capsule by [...] - 04/23/2023 11:30 AM EDT [facility] [place] Nursing notes reviewed. [...] 2.5% Phenylephrine @ 11:34AM Strabismus Exam Correction: tn Observations: Ortho Distance Near Near +3DS N [...] Mike Hollis DO Avastin 1.25mg lot # [id number] Exp. Date: 06/10/23 * Kailee Krishnan RN [...] Left documented in this encounter Care Teams Mainframe Consultant Relationship Specialty Start Date End Date Chalo Doran DO [address] [place] [address] PCP - General Family Medicine 12/24/20 documented as of this encounter
--- OUTSIDE RECORDS SUMMARY | 2023-08-23 02:09 | External Medical Summary | Continuity of Care Document ---
Author Name Unknown Organization [address] Address [address] [place], [place] [id number] Care Team Providers Care Multiple Pressure Riveter Operator Name Role Phone Makayla Adan Primary Care Physician [phone] Encounter [facility] [id number] Date(s): 04/15/23 - 04/15/[address] [address] [phone] Encounter Diagnosis Colon cancer(Discharge Diagnosis) - 04/15/23 Burping(Discharge Diagnosis) - 04/15/23 GERD (gastroesophageal reflux disease)(Discharge Diagnosis) - 04/15/23 Hypertension(Discharge Diagnosis) - 04/15/23 Lower extremity edema(Discharge Diagnosis) - 04/15/23 Restless leg(Discharge Diagnosis) - 04/15/23 Neuropathy(Discharge Diagnosis) - 04/15/23 Nausea(Discharge Diagnosis) - 04/15/23 Discharge Disposition: Home or Self Care Attending Physician: STELLA Adan Tara Referring Physician: STELLA Adan Tara Allergies, Adverse Reactions, Alerts No Known Medication Allergies Assessment and Plan Extracted from: Title:follow up Author:STELLA Adan Tara Date:04/15/23 1.Colon cancer 2.Burping 3.GERD (gastroesophageal reflux disease) Acute/Chronic: chronic Goal:Resolution/ control Status:stable/controlled Data: records/pt report Plan: She is due for colonoscopy. Will order. Will also order endo to evaluate her burping and gerd symptoms. Can take pepcid daily. 4.Hypertension Acute/Chronic: chronic Goal:Resolution/ control Status:stable/controlled Data: records/pt report Plan:Contd with present regimen. 5.Lower extremity edema Acute/Chronic: chronic Goal:Resolution/ control Status:stable/controlled Data: records/pt report Plan:Stable. Contd with low salt diet, compression stockings and elevation. 6.Restless leg 7.Neuropathy Acute/Chronic: chronic Goal:Resolution/ control Status:stable/controlled Data: records/pt report Plan: Discuss with neuro. Could possible use gabapentin for both issues. 8.Nausea Acute/Chronic: chronic Goal:Resolution/ control Status:stable/controlled Data: records/pt report Plan: Will send in rx for zofran to use as needed. follow up in 3 mo time spent reviewing chart, face to face visit, ordersand documentation: 45 min Immunizations Given and Recorded Vaccine Date [...] g, Refills: 4, to affected area, Pharmacy: [facility] Start Date: 06/03/22 Status: Ordered hydrALAZINE 25 mg oral tablet Start: 10/01/22 16:25:00 EST, 1 tab, PO, tid, Disp# 90 tab, Refills: 4, Pharmacy: [facility] Start Date: 10/01/22 Stop Date: 02/28/23 Status: Ordered Lexapro 10 mg oral tablet Start: 12/22/22 13:20:00 EDT, 1 tab, PO, Daily, Disp# 30 tab, Refills: 11, Pharmacy: [facility] Start Date: 12/22/22 Status: Ordered losartan 100 mg oral tablet Start: 03/16/23 11:22:00 EDT, See Instructions, Disp# 90 tab, Refills: 3, Take 1 tablet by mouth once daily, Pharmacy: [facility] Start Date: 03/16/23 Status: Ordered Metamucil Start: 12/12/22 13:24:00 EST Start Date: 12/12/22 Status: Ordered oxybutynin 5 mg/24 hours oral tablet, extended release Start: 01/12/23 10:17:00 EDT, 1 tab, PO, Daily, Disp# 30 tab, Refills: 3, PRN: as needed for urinary discomfort, Pharmacy: [facility] Start Date: 01/12/23 Stop Date: 05/12/23 Status: Ordered Pepcid AC Maximum Strength 20 mg oral tablet Start: 10/25/20 9:44:00 EST, 1 tab, PO, Daily, if needed Start Date: 10/25/20 Status: Ordered pramipexole 0.25 mg oral tablet Start: 10/25/20 9:41:00 EST, 2 tab, PO, Daily Start Date: 10/25/20 Status: Ordered PreserVision AREDS Start: 12/12/22 13:24:00 EST Start Date: 12/12/22 Status: Ordered spironolactone 50 mg oral tablet Start: 12/12/22 13:32:00 EST, 1 tab, PO, Daily, Disp# 30 tab, Refills: 6, Note to Pharmacy: disregard bid rx, Pharmacy: [facility] Start Date: 12/12/22 Stop Date: 07/10/23 Status: Ordered traMADol 50 mg oral tablet Start: 10/24/21 13:20:00 EST, See Instructions, take 3 times daily as needed Start Date: 10/24/21 Status: Ordered triamcinolone 0.1% topical cream Start: 08/28/22 10:14:00 EST, 1 appl, topical, bid, Disp# 60 g, Refills: 3, Pharmacy: [facility] Start Date: 08/28/22 Status: Ordered unknown [...] 3, PRN: as needed for nausea/vomiting, Pharmacy: [facility] Start Date: 04/15/23 Status: Ordered Mental Status 04/15/23 Barriers to Learning one year None evide nt Mandatory Health Literacy Documentation Yes Health Literacy Communication Barriers N ever Primary Language Japanese Problem List Condition Confirmation Course Effective Dates Status Health St atus Informant Aortic root dilation Confirmed Active Depression Confirmed Active Lower extremity edema Confirmed Active GERD (gastroesophageal reflux disease) Confirmed Active Hypertension Confirmed Active LVH (left ventricular hypertrophy) Confirmed Active Colon cancer Confirmed Active Urinary incontinence, mixed Confirmed Active Venous insufficiency, peripheral Confirmed Active Restless leg Confirmed Active Spinal stenosis Confirmed Active Diagnosis Diagnosis Type Effective Dates Health Status Clinical Service Informant Burping Discharge Diagnosis 04/15/23 Non-Specified Colon cancer Discharge Diagnosis 04/15/23 Non-Specified GERD (gastroesophageal reflux disease) Discharge Diagnosis 04/15/23 Non-Specified Lower extremity edema Discharge Diagnosis 04/15/23 Nausea Discharge Diagnosis 04/15/23 Hypertension Discharge Diagnosis 04/15/23 Restless leg Discharge Diagnosis 04/15/23 Neuropathy Discharge Diagnosis 04/15/23 Procedures Procedure Date Related Diagnosis Body Site Status Lumbar epidural steroid injection 02/17/23 Completed Eye injection 1 01/13/23 Completed Eye injection 2 12/2022 Completed Eye examination 3 11/04/[address] 4 09/10/22 Completed Lumbar epidural steroid injection 05/20/[address] of abdomen and pelvis wit h intravenous contrast 5 02/28/22 Completed Echocardiogram 6 06/28/21 Complete d Lumbar epidural steroid injection 35 Completed X-ray 7 Completed 1left eye 2left eye 3intravitreal injection of Avastin 1.25 mg left eye [facility] Impression: 1. There is no hemorrhage, mass effect, or evidence of acute territorial ischemia by CT criteria 2. Unremarkable CT angiogram of the brain 3. Unremarkable angiogram of the neck 51. interval development of acute diverticulitis of the descending colon with pericolonic inflammatory changes and fluid present. no evidence for perforation, abscess or free air 2. large periumbillical hernia with loops of bowel is again seen. no obstruction is identified. 3. additional nonacute findings are delineated in report 6Summary: Left ventricular systolic function is normal. There [...] dilated with a decrease in inspiratory collapse. 7xr ankle rt min 3 v routine impression no acute fracture or dislocation within the rt ankle. Ankle soft tissue swelling. Vital Signs Most recent to oldest [Reference Range]: 1 Height 152.9 cm (04/15/23 3:25 PM) Patient Weight 87.7 kg (04/15/23 3:25 PM) Body Mass Index 37.51 kg/m2 (04/15/23 3:25 PM) Heart Rate 99 bpm (04/15/23 3:25 PM) Respiratory Rate 20 br/min (04/15/23 3:25 PM) Blood Pressure 150/100mmHg (04/15/23 3:25 PM) Cuff Pulse Pressure 50 mmHg (04/15/23 3:25 PM) Social History Social History Type Response Smoking Status Never smoked cigaret daryl Sex Female [facility] Outpt Note * STELLA Adan Tara: PERFORM Event Display: [facility] Outpt Note Authored Date: [id number] Chief Complaint 4 month follow up. feels she is getting slower and the macular degeneration in left eye is causing her to feel "sea sick". wondering if promethazine would help? History of Present Illness 138/85 at home. Recently saw cardiology and they felt her BP was good. She does report that at times she will forget a dose of hydralazine. Lower ext edema is not bad. She had a back injection last month with some relief. Contd with neuropathy. Has appt with neuro coming up. She does report having nausea 1-2 times a month for a few minutes. She states it started around thetime of her macular degeneration. Not sure if it related or not. Lesion is on her scalp. Also notes feeling like she needs to burp after meals. Review of Systems Constitutional: No fever, chills, sweats EENT:No vision change, eye pain, rhinorrhea, sinus pain, epistaxis, dysphagia, change in hearing,tinnitus, vertigo, oral ulcers or lesions. Pulmonary: No shortness of breath, dyspnea with exertion, cough, hemoptysis, wheezing, chest pain. Cardiovascular: No chest pain, palpitations, syncope, edema, cyanosis, claudication, orthopnea. GI: No vomiting, diarrhea, melena, hematochezia, change in appetite, abdominal pain, change in bowel habits or stools. +nausea a few times a month Musculoskeletal: No joint swelling or pain, muscle pain. +back pain Neurologic: No headache, lightheadedness. Lower ext neuropathy Psychiatric: No depression, anxiety, Dermatologic: lesion on scalp Endocrine: No weight change, heat or cold intolerance, tremor, insomnia, polyuria, polydipsia, polyphagia, abnormal hair growth, change in nails Physical Exam Vitals & Measurements HR:99(Monitored) RR:20 BP:150/100 SpO2:93% HT:152.9cm WT:87.700kg(Dosing) WT:87.7kg BMI:37.51 PHQ2 Data(Data Documented on:04/15/2023 15:25) Emotional health assessment NEGATIVE head- normocephalic neck-no lymphadenopathy, masses, or thyromegaly, +carotid pulses, no bruits, trachea midline Pulmonary- chest expansion symmetric, CTA (clear to auscultation), eupnea, no adventitious sounds (rales, crackles, wheezes) CV (cardiovascular)- RRR no m/r/g (systolic ejection murmur, rubs, gallops), good peripheral perfusion extremities+1-2 non pitting pedal edema. No erythema skin-good turgor w/o lesions, redness, cyanosis, edema Neuro:Alert, Oriented Psy:no homicidal or suicidal ideations. Assessment/Plan 1.Colon cancer 2.Burping 3.GERD (gastroesophageal reflux disease) Acute/Chronic: chronic Goal:Resolution/ control Status:stable/controlled Data: records/pt report Plan:She is due for colonoscopy. Will order. Will also order endo to evaluate her burping and gerd symptoms. Can take pepcid daily. 4.Hypertension Acute/Chronic: chronic Goal:Resolution/ control Status:stable/controlled Data: records/pt report Plan:Contd with present regimen. 5.Lower extremity edema Acute/Chronic: chronic Goal:Resolution/ control Status:stable/controlled Data: records/pt report Plan:Stable. Contd with low salt diet, compression stockings and elevation. 6.Restless leg 7.Neuropathy Acute/Chronic: chronic Goal:Resolution/ control Status:stable/controlled Data: records/pt report Plan:Discuss with neuro. Could possible use gabapentin for both issues. 8.Nausea Acute/Chronic: chronic Goal:Resolution/ control Status:stable/controlled Data: records/pt report Plan:Will send in rx for zofran to use as needed. follow up in 3 mo time spent reviewing chart, face to face visit, ordersand documentation: 45 min Problem List/Past Medical History Ongoing Aortic root dilation Colon cancer Depression GERD (gastroesophageal reflux disease) Hypertension Lower extremity edema LVH (left ventricular hypertrophy) Restless leg Spinal stenosis Urinary incontinence, mixed Venous insufficiency, peripheral Historical Chronic back pain Procedure/Surgical History Eye injection (Week of 12/10/2022)Eye examination (11/04/2022)Head CT (09/10/2022)Lumbar epidural steroid injection (05/20/2022)CT of abdomen and pelvis with intravenous contrast (02/28/2022)Echocardiogram (06/28/2021)Lumbar epidural steroid injection (1935)X-ray [...] PO, Daily hydrALAZINE(hydrALAZINE 25 mg oral tablet), 25 mg= 1 tab, PO, tid, 4 refills losartan(losartan 100 mg oral tablet), See Instructions, 3 refills multivitamin with minerals(PreserVision AREDS) multivitamin with minerals(Centrum Women's), 1 tab, PO, Daily ondansetron(Zofran 4 mg oral tablet), 4 mg= 1 tab, PO, tid, PRN, 3 refills oxybutynin(oxybutynin 5 mg/24 hours oral tablet, extended release), 5 mg= 1 tab, PO, Daily, PRN, 3 refills pramipexole(pramipexole 0.25 mg oral tablet), 0.5 mg= 2 tab, PO, Daily psyllium(Metamucil) spironolactone(spironolactone 50 mg oral tablet), 50 mg= 1 tab, PO, Daily, 6 refills traMADol(traMADol 50 mg oral tablet), See [...] 07/19/2022 Recorded Comments : Avi SARS-CoV-2 mRNA (tozinameran 5y-11y) 07/19/2022 Recorded Comments : Avi influenza [...] Recommendations Health Maintenance Pending(in the next year) Due Adult Influenza Vaccine due04/11/23and every 1year Adult COVID-19 Vaccination due04/15/23Unknown Frequency Depression Follow Up Plan due04/15/23Unknown Frequency Falls Plan of Care due04/15/23Unknown Frequency Due In Future Medicare Annual Wellness Visit not due until12/13/23and every 1year Body Mass Index not due until04/14/24and every 1year Satisfied(in the past 1 year) Satisfied Adult Influenza Vaccine on07/19/22.Satisfied by YOLANDA Snowden Shania Body Mass Index on04/15/23.Satisfied by YOLANDA Mota Bobbi Medicare Annual Wellness Visit on12/12/22.Satisfied by STELLA Adan Tara Electronic Signature on File Electronically Reviewed/Signed by: STELLA Salgado Author Signature Dt/Tm:04/15/2023 05:03 PM Department of Family Medicine TB Patient Care team information Care Team Personnel Name: MD Camara Daniel Position: Resident Member Role: Lifetime Relationship Address: Address: [address] [address] Name: STELLA Adan Tara Position: Nurse Pract - Family Med Member Role: Primary Care Provider Address: Address: [address] [place] [id number] [place] Care Team Related Persons Name: KILO CAMARENA Name: ALMA AWAD Address: home [address] [place] [address], [phone]
--- OUTSIDE RECORDS SUMMARY | 2023-08-23 02:09 | External Medical Summary | Summary of Care ---
Author Name Unknown Organization [facility] Address [address] [place] [address] Phone [phone] Care Team Providers Care Meteorological Observer Name Role Phone Chalo Doran DO Primary Care Provider [phone] Reason for Visit * Reason Comments Follow Up 5-7 week Dilation wi OCT OS. Pt denies changes with vision but notes eyes get tired * Precert (Within 10 days (routine)) - Authorized Specialty Diagnoses / Procedures Referred By Nasra pritchard Referred To Contact Ophthalmology Diagnoses Exudative age-related macular degeneration, left eye, with active choroidal neovascularization (HCC) Procedures OR BEVACIZUMAB INJECTION OR INTRAVITREAL NJX PHARMACOLOGIC AGT SPX Mike Hollis DO [address] [place] [id number] Referral ID Status Reason Start Date Expiration Date V isits Requested Visits Authorized [id number] Authorized Precert 11/04/2022 10/11/2099 [id number] Encounter Details Date Type Department Care Team Description 02/27/2023 Office Visit Ophthalmology, [facility] [address] [place] [id number] Mike Hollis DO [address] [place] [id number] Exudative age-related macular degeneration of left eye with active choroidal neovascularization (HCC)* Allergies No known active allergiesdocumented as of this encounter (statuses as of 02/27/2023) Medications Medication Sig Dispensed Refills Start Date End Date Status Losartan Potassium-HCTZ 100-12.5 MG per tabletIndications:HCTZ 25MG Daily Indications: HCTZ 25MG 0 04/27/2015 Active traMADol 25 MG PO Tablet Take 5 Tablets by mouth every 6 hours as needed. 0 Active Pramipexole Dihydrochloride 0.25 MG Oral Tablet (Mirapex) Take 2 Tablets by mouth in the morning. 0 Active Zinc 50 MG Oral Capsule Take 1 Capsule by mouth in the morning. 0 Active Aspirin 81 MG Oral Tablet Delayed Release 1 Tablet. 0 07/04/2021 Ac tive Coenzyme Q10 100 MG Oral Capsule 1 Capsule. 0 10/25/2020 Active Cyanocobalamin 500 MCG Oral Tablet Take 1 Tablet by mouth. 0 Active Spironolactone 25 MG Oral Tablet (Aldactone) 0 08/07/2021 Active hydrALAZINE HCl 10 MG Oral Tablet (Apresoline) 0 08/19/2021 Active diphenhydrAMINE HCl (Sleep) 25 MG Oral Tablet Take 12.5 mg by mouth. 0 Active Vitamin D3 1.25 MG (86414 UT) Oral Capsule Take 1 Capsule by [...] mouth 2 times a day. 0 Active Hospital, Clinic, or Other Facility [...] as of this encounter (statuses as of 02/27/2023) Active Problems Problem Noted Date Encounter for surveillance of abnormal n gabby 06/26/2015 documented as of this encounter (statuses as of 02/27/2023) Social History Tobacco Use Types Packs/Day Years [...] Progress Notes * Mike Hollis DO - 02/27/2023 11:15 AM EDT [facility] [place] Nursing notes reviewed. Eye vitals reviewed. Mood and Affect: normal HPI: Amina Casillas is a 87 year old female who presents for evaluation of AMD No other eye complaints. Denies significant pain. Base Eye Exam Visual Acuity (Snellen - Linear) Right Left Dist cc 20/20 20/40 Dist ph cc NI Correction: Glasses Tonometry (Tonopen, 11:29 AM) Right Left Pressure 13 13 Pupils Light Shape React APD Right 3 Round Minimal None Left 3 Round Minimal None Visual Arnold (Counting fingers) Right Left Full Full Extraocular Movement Right Left Full, Ortho Full, Ortho Neuro/Psych Oriented x3: Yes Mood/Affect: Normal Dilation Both eyes: 0.5% Proparacaine @ 11:29 AM Dilation #2 Left eye: 2.5% Phenylephrine, 1.0% Mydriacyl @ 11:29 AM EXTERNAL: The ocular adnexae are unremarkable. SLE: [...] OD: dry OS: wet PED rip -Avastin 01/13/23, 12/09/22, 11/04/22 -6 weeks 2. Posterior Vitreous Detachment OU -no RT/RD -advised to return to clinic if she should experience worsening or new floaters, flashes of light, a shadow in the periphery, or decrease in vision. 3. Pseudophakia OU -stable, Dr Roberts F/u 6-8 weeks, OCT OS Mike Hollis DO CC: Shirlene Claros, OD [...] Nursing Notes * Nathanael Tellez RN - 02/27/2023 11:41 AM EDT Amina Casillas to receive fourth Avastin 1.25mg Injection of the Left eye. Correct eye confirmed with patient and marked by Mike Hollis DO Avastin 1.25mg lot # [id number] Exp. Date: 03/18/23 * FARSHAD Li - 02/27/2023 11:21 AM EDT Amina Casillas is a 87 year old year old female who presents for 5-7 week Dilation with OCT OS. Last Office Visit: 01/13/2023 (in office), Visit date not found (telemedicine) Patient currently states denies vision changes but eyes get tired Are you diabetic? No Do you drive? no OCT image(s) of left eye acquired and filed/scanned into chart. documented in this encounter Plan of Treatment Upcoming Encounters Date Type Specialty Care Team Description 04/23/2023 Office Visit Ophthalmology Mike Hollis DO [address] [place] [id number] Health Maintenance Due Date Last Done Comments DXA Scan 1935 Pneumococcal Vaccine: 65+ Years (1 - PCV) 1941 Depression Screening, Annual for Pts 12 and Over 1947 DTaP,Tdap,and Td Vaccines (1 - Tdap) 1954 Influenza Vaccine (FLU shot) (Season Ended) 2023 07/19/2019, 07/18/2015, 07/11/2014, Additional history exists Zoster Vaccines Completed 01/17/2019, 09/12, 10/07/2007 COVID-19 Vaccine Completed 07/19/2022, , 02/07/2022, Additional history exists GARDASIL-HPV IMMUNIZATION SERIES [...] Thu11/04/23 at 0952, For 365 days Given 02/27/2023 11:42 AM EDT 1.25 mg Eye Left Given 01/13/2023 8:59 AM EDT 1.25 mg Ey e Left Given 12/09/2022 3:38 PM EST 1.25 mg Ey e Left ROPivacaine (Naropin) inj 1.5 mg 1.5 mg, Injection, PRN Other, Starting on Thu11/04/22 at 0953, Until Thu11/04/23 at 0952, For 365 days Given 02/27/2023 11:41 AM EDT 1.5 mg Eye Left Given 01/13/2023 8:58 AM EDT 1.5 mg Ey e Left Given 12/09/2022 3:37 PM EST 1.5 mg Ey e Left documented in this encounter Care Teams Meteorological Observer Relationship Specialty Start Date End Date Chalo Doran DO [address] [place] [address] PCP - General Family Medicine 12/24/20 documented as of this encounter
[2023-08-23 08:43] LABS: BUN Creatinine Ratio 21.1 (10-20); Calcium 9.4 mg/dl (8.6-10.3); Creatinine Clr Calc Pharmacy 52.5 ml/min; Est GFR (African American) 88.1 ml/min; Potassium 4.2 mmol/L (3.5-5.1)
[2023-08-23] MEDS ORDERED: FUROSEMIDE 20 MG TAB PO ONE (09:30)
[2023-08-23] MEDS: hydrALAZINE HCL 25 MG TAB PO SCH ×3 (09:46→22:00)
[2023-08-23] MEDS: HEPARIN SOD 5,000 UNIT/0.5 ML VIAL SQ SCH ×2 (09:52→22:00)
[2023-08-23] MEDS: LOSARTAN POTASSIUM 50 MG TAB PO SCH (09:52)
[2023-08-23] MEDS: ADVANCED PROBIOTIC 1250 MG CAPSULE PO SCH (09:52)
[2023-08-23] MEDS: MAGNESIUM OXIDE 400 MG TAB PO SCH (09:52)
[2023-08-23] MEDS: SPIRONOLACTONE 25 MG TAB PO SCH (09:52)
[2023-08-23] MEDS: PSYLLIUM or GUAR GUM FIBER POWDER PACKET PO SCH (09:52)
[2023-08-23] MEDS: DAPTOmycin 350 MG in SYRINGE 0 ML IV SCH (09:59)
[2023-08-23] MEDS: PRAMIPEXOLE DIHYDROCHLO 0.5 MG TAB PO SCH ×2 (12:49→17:11)
[2023-08-23] MEDS: DESONIDE CR 15 GM TUBE EXT PRN (15:19)
[2023-08-23] MEDS: cefTRIAXone SODIUM 2,000 MG in DEXTROSE 5 % MINI-B 50 ML IV SCH (17:09)
--- NOTE | 2023-08-23 20:46 | Hospitalist Progress Note ---
Date of Service August 23, 2023 Assessment & Plan (1) Cellulitis of right leg: Plan: IMPROVING nicely at this point. cont IV daptomycin. cont IV rocephin. would do at least 1 more day; possibly can transition to PO abx tomorrow. would plan 14 days of IV/PO abx in light of the severity of this infection. elevate leg. pain control. give another dose of lasix today to promote diuresis of edema. (2) Hypertension: Plan: Continue hydralazine, losartan, aldactone. BPs acceptable. (3) Idiopathic polyneuropathy: Plan: Continue tramadol (4) Hyponatremia: Plan: Na 130 on arrival now resolved Na again nearly normal today at 134 this is chronic going back several years looks euvolemic again on exam except for edema of right leg - which is improved (5) Mitral regurgitation: Plan: Stable Continue to monitor (6) Dilated aortic root: Plan: Beta-blockers previously discontinued due to adverse effects (7) Restless legs syndrome: Plan: 07/2023 Fe studies wnl I am perplexed why she is on tramadol for RLS I spoke informally with on-call neurology re: pramipexole -- titrated her mid-day dose and evening dose of such could consider an AM dose as well but she doesn't have symptoms until the afternoon so defer for now (8) UTI (urinary tract infection): Plan: 2nd pansensitive e.coli rocephin will cover without any issue Plan DVT proph - Heparin 5000 units SQ q12h Updated pt's by phone this evening for joint pains & RLE pain --> norco in ramila of tramadol cont PT, OT EKG done 2nd to irregular rhythm on exam today --> PACs only; no a.fib Admission and Anticipated Discharge Date Admission Date: August 18, 2023 Subjective pt got a new room with a good view/windows, a new bed, and a recliner chair and she is MUCH MORE comfortable today pain in RLE is improved RLS symptoms - improved eating well she is happier today overall Review of Systems Review of Systems: gen - no fevers; some weakness pulm - no dyspnea, no cough CV - edema improved RLE; no chest pain; no orthopnea GI - no diarrhea Physical Exam Physical Exam: gen - NAD, looks better today neck - no JVD mouth - MMM heart - irregular, s1 s2, 2/6 HUONG LSB lungs - CTA b/l abd - soft NT ND BS+ skin - cellulitis extending from tibial plateau region down to just above the R ankle - AGAIN IMPROVED today; intensely of redness over the entire area of phillips improved; the erythema is retreating from the demarkation lines that are in the proximal phillips; also retreating from the demarkation line at the ankle level; less warmth today; less intensely red skin over the right dorsum of foot. focal swelling of medial left distal leg is improved today; less tenderness over this focal swelling area. Tiny (1-2mm) opening in this region is closing. psych - a/o x 3 Results & Data Results & Data Vital Signs (Past 12 Hours) Vital Signs Temp Pulse Resp BP Pulse Ox O2 Del Method 08/23/23 15:03 36.5 C 90 16 146/122 H 97 Room Air Laboratory Results Laboratory Results - last 24 hr 08/23/23 08:03 Sodium 134 L Potassium 4.2 Chloride 101 Carbon Dioxide 27 Anion Gap 6 BUN 15 Creatinine 0.71 Est Cr Clr Drug Dosing 52.5 Est GFR ( Amer) 88.1 Est GFR (Non-Af Amer) 76.0 BUN/Creatinine Ratio 21.1 H Glucose 99 Calcium 9.4 Magnesium 2.0 Diagnostic Findings EKG - NSR with pacs (my reading) PG Care Time/CCT Total # of Minutes Spent Total Time Spent with Patient: Total time spent is greater than 50% in coordination of care (as documented) at patient's floor/unit and/or counseling patient: Coding Level of Care Code 17040 SUB INP/OBS CARE 2/35MIN Diagnoses Cellulitis of right leg L03.115 Hypertension I10 Idiopathic polyneuropathy G60.9 Hyponatremia E87.1 Mitral regurgitation I34.0 Dilated aortic root I77.810 Restless legs syndrome G25.81 UTI (urinary tract infection) N39.0
[2023-08-23] MEDS: MELATONIN 3 MG TAB PO SCH (22:00)
[2023-08-24] MEDS: HYDROCODONE/ACETAMINOPHEN 7.5/325MG TAB PO PRN ×3 (04:03→19:30)
--- NOTE | 2023-08-24 06:22 | Electrocardiogram Report ---
Test Reason : Blood Pressure : / mmHG Vent. Rate : 093 BPM Atrial Rate : 093 BPM P-R Int : 230 ms QRS Dur : 100 ms QT Int : 354 ms P-R-T Axes : 056 045 -19 degrees QTc Int : 440 ms Sinus rhythm with 1st degree A-V block with Premature supraventricular complexes Incomplete right bundle branch block Possible Inferior infarct , age undetermined T wave abnormality, consider anterior ischemia Abnormal ECG When compared with ECG of 18-AUG-2023 15:41, No significant change Confirmed by Jacob Rangel ([id number]) on 08/24/2023 6:22:41 AM Referred By: REFERRED SELF Confirmed By:Jacob Rangel
[2023-08-24] MEDS: LOSARTAN POTASSIUM 50 MG TAB PO SCH (08:44)
[2023-08-24] MEDS: hydrALAZINE HCL 25 MG TAB PO SCH ×3 (08:44→22:02)
[2023-08-24] MEDS: MAGNESIUM OXIDE 400 MG TAB PO SCH (08:44)
[2023-08-24] MEDS: ADVANCED PROBIOTIC 1250 MG CAPSULE PO SCH (08:44)
[2023-08-24] MEDS: PSYLLIUM or GUAR GUM FIBER POWDER PACKET PO SCH (08:45)
[2023-08-24] MEDS: SPIRONOLACTONE 25 MG TAB PO SCH (08:45)
[2023-08-24] MEDS: DAPTOmycin 350 MG in SYRINGE 0 ML IV SCH (08:45)
[2023-08-24] MEDS: HEPARIN SOD 5,000 UNIT/0.5 ML VIAL SQ SCH ×2 (08:45→22:02)
[2023-08-24 10:57] LABS: BUN Creatinine Ratio 19.8 (10-20); Est GFR (African American) 75.2 ml/min; Est GFR (Non-African American) 64.8 ml/min; Potassium 4.1 mmol/L (3.5-5.1)
[2023-08-24 10:58] LABS: Hematocrit (blood only) 32.3 % (37.0-47.0); Hemoglobin 10.9 g/dl (12.0-16.0); Mean Corpuscular Hemoglobin 29.7 pg (25.0-34.0); Mean Corpuscular Hgb Conc 33.7 g/dL (32.0-36.0); Mean Platelet Volume 9.2 fL (9.4-12.4); Platelet Count 271 K/uL (130-400); RDW Coefficient of Variation 14.6 % (11.5-14.5); RDW Standard Deviation 47.5 fL (36.4-46.3); Red Blood Count 3.67 M/uL (4.20-5.40); White Blood Count 8.42 K/ul (4.8-10.8)
[2023-08-24] MEDS ORDERED: FUROSEMIDE 20 MG TAB PO ONE (11:45)
[2023-08-24] MEDS: PRAMIPEXOLE DIHYDROCHLO 0.5 MG TAB PO SCH ×2 (13:24→17:44)
[2023-08-24] MEDS: cefTRIAXone SODIUM 2,000 MG in DEXTROSE 5 % MINI-B 50 ML IV SCH (16:41)
[2023-08-24 17:00] LABS: C Reactive Protein 9.44 mg/dl (0-0.5)
--- NOTE | 2023-08-24 21:44 | Hospitalist Progress Note ---
Date of Service August 24, 2023 Assessment & Plan (1) Cellulitis of right leg: Plan: IMPROVING clinically on exam and CRP also falling (was 20, now <10). pictures in this note are from today, 08/24. verbal consent obtained from patient to take these photos. cont IV daptomycin. started 08/20 - thus, day #5. cont IV rocephin. started 11 - thus, day #5. (was on IV vanco monotherapy before the above 2 abx were initiated; vanco stopped as we could not achieve therapeutic levels) would do at least 1 more day; possibly can transition to PO abx tomorrow. would plan 14 days of IV/PO abx in light of the severity of this infection. elevate leg. pain control. give another dose of lasix today to promote diuresis of edema. suspect this will be final dose of such. (2) Hypertension: Plan: Continue hydralazine, losartan, aldactone. BPs acceptable. (3) Idiopathic polyneuropathy: Plan: Continue norco prn (4) Hyponatremia: Plan: Na 130 on arrival now resolved Na 135 today this issue is chronic going back several years looks euvolemic again on exam except for edema of right leg - which is improved s/p several doses of PO lasix last few days (5) Mitral regurgitation: Plan: Stable Continue to monitor (6) Dilated aortic root: Plan: Beta-blockers previously discontinued due to adverse effects (7) Restless legs syndrome: Plan: 07/2023 Fe studies wnl I am perplexed why she is on tramadol for RLS I spoke informally with on-call neurology late last week re: pramipexole -- titrated her mid-day dose and evening dose of such (to 1mg and 1mg, respectively) RLS has responded nicely to the above dose titration would send home on the 1mg doses at discharge (8) UTI (urinary tract infection): Plan: 2nd pansensitive e.coli s/p rocephin x 5 days to date another 2 more days of abx will suffice Plan DVT proph - Heparin 5000 units SQ q12h Updated pt's by phone yesterday evening for joint pains & RLE pain --> cont to use norco in ramila of tramadol cont PT, OT EKG done 2nd to irregular rhythm on exam --> PACs only; no a.fib home tomorrow on 08/25? 08/26? Admission and Anticipated Discharge Date Admission Date: August 18, 2023 Subjective had another good night's rest has felt decent today asks if she can d/c home denies any significant pain in her RLE RLS under good control no diarrhea Review of Systems 2 Review of Systems: gen - no fevers or chills cv - no chest pain pulm - no dyspnea GI - no abd pain or N/V Physical Exam 2 Physical Exam: gen - NAD, looks good, laying in bed neck - no JVD mouth - MMM heart - irregular (extra beats), s1 s2, 2/6 HUONG LSB lungs - CTA b/l abd - soft NT ND BS+ skin - cellulitis extending from tibial plateau region down to just above the R ankle - AGAIN IMPROVED today; intensely of redness over the entire area of phillips improved; the erythema cont to retreat from the demarkation lines that are in the proximal phillips; less warmth today; less intensely red skin over the right dorsum of foot. focal swelling of medial left distal leg is again improved today; no tenderness over this focal swelling area. Tiny (1-2mm) opening in this region is closed. psych - a/o x 3 ext - 1+ edema RLE, trace edema LLE - improved; pulses 2+ b/l Results & Data Results & Data Vital Signs (Past 12 Hours) Vital Signs Temp Pulse Resp BP Pulse Ox O2 Del Method 08/24/23 15:22 36.9 C 91 H 18 134/82 96 Room Air 08/24/23 11:33 Room Air Laboratory Results Laboratory Results - last 24 hr 08/24/23 10:06 WBC 8.42 RBC 3.67 L Hgb 10.9 L Hct 32.3 L MCV 88.0 MCH 29.7 MCHC 33.7 RDW Std Deviation 47.5 H RDW Coeff of Xavier 14.6 H Plt Count 271 MPV 9.2 L Sodium 135 L Potassium 4.1 Chloride 101 Carbon Dioxide 28 Anion Gap 6 BUN 16 Creatinine 0.81 Est Cr Clr Drug Dosing 46.0 Est GFR ( Amer) 75.2 Est GFR (Non-Af Amer) 64.8 BUN/Creatinine Ratio 19.8 Glucose 119 H Calcium 9.0 C-Reactive Protein 9.44 H PG Care Time/CCT Total # of Minutes Spent Total Time Spent with Patient: Total time spent is greater than 50% in coordination of care (as documented) at patient's floor/unit and/or counseling patient: Coding Level of Care Code 70770 SUB INP/OBS CARE 2/35MIN Diagnoses Cellulitis of right leg L03.115 Hypertension I10 Idiopathic polyneuropathy G60.9 Hyponatremia E87.1 Mitral regurgitation I34.0 Dilated aortic root I77.810 Restless legs syndrome G25.81 UTI (urinary tract infection) N39.0
[2023-08-24] MEDS: MELATONIN 3 MG TAB PO SCH (22:02)
[2023-08-25] MEDS: HYDROCODONE/ACETAMINOPHEN 7.5/325MG TAB PO PRN ×2 (00:53→07:22)
[2023-08-25 06:33] LABS: BUN Creatinine Ratio 20.7 (10-20); Calcium 9.8 mg/dl (8.6-10.3); Creatinine Clr Calc Pharmacy 42.8 ml/min; Est GFR (African American) 68.9 ml/min; Est GFR (Non-African American) 59.5 ml/min; Potassium 4.3 mmol/L (3.5-5.1)
[2023-08-25] MEDS: HEPARIN SOD 5,000 UNIT/0.5 ML VIAL SQ SCH (09:31)
[2023-08-25] MEDS: hydrALAZINE HCL 25 MG TAB PO SCH ×2 (09:50→14:16)
[2023-08-25] MEDS: LOSARTAN POTASSIUM 50 MG TAB PO SCH (09:51)
[2023-08-25] MEDS: SPIRONOLACTONE 25 MG TAB PO SCH (09:51)
[2023-08-25] MEDS: ADVANCED PROBIOTIC 1250 MG CAPSULE PO SCH (09:52)
[2023-08-25] MEDS: PSYLLIUM or GUAR GUM FIBER POWDER PACKET PO SCH (09:52)
[2023-08-25] MEDS: MAGNESIUM OXIDE 400 MG TAB PO SCH (09:52)
[2023-08-25] MEDS: DAPTOmycin 350 MG in SYRINGE 0 ML IV SCH (10:07)
[2023-08-25] MEDS: PRAMIPEXOLE DIHYDROCHLO 0.5 MG TAB PO SCH (13:15)
--- NOTE | 2023-08-25 20:01 | Discharge Summary ---
Date of Service August 25, 2023 Admission HPI Per Admitting Provider Amina is an 88-year-old female with PMH HTN, arthritis, MR, and spinal stenosis. She presented to the ED with generalized weakness, and worsening right ankle pain x 4 days (since , 08/13). Bilateral leg swelling on arrival with RLE red/swollen. She endorses constant pain at the top of the right foot, right heel, and right medial ankle. She rates the pain 5/10 at present, but 10/10 at worst. No radiation. No prior experiences like this. She denies history of DVT/PE. She reports she is not on anticoagulation. No pain in the LLE. She denies fevers over the past week. She lives with her (Ed), and reports that she did not sustain a ground-level fall today, but rather sat down and was unable to stand back up. She denies history of falls. She was originally scheduled to have a neck MRI today for left shoulder pain; ongoing left shoulder pain for which she takes tramadol. Mild hypertension; otherwise, vitals stable at time of admission. ED course: Vancomycin 2250 mg ROS: Patient endorses nausea / dry heaves (that started shortly after arriving in the ED), left shoulder pain, right ankle pain, nocturia (ongoing), and some urinary incontinence at night. Patient denies fevers, chills, GOODE, dizziness, lightheadedness, CP, pleuritic CP, SOB, abdominal pain, vomiting, diarrhea, blood in stool/urine, dysuria, burning with urination, or numbness/tingling in UEs or LEs. Principal Diagnosis Severe RLE cellulitis Discharge Exam PHYSICAL EXAMINATION Last 24h vital signs reviewed, see documentation in flowsheet General: comfortable appearing, no distress, sitting up in the chair eating lunch HEENT: Normocephalic, atraumatic, pupils round and equal, sclerae anicteric, no conjunctival injection, moist mucus membranes Lungs: Normal respiratory effort. Clear to auscultation bilaterally. No RRW Heart: Regular rate and rhythm, no murmurs. No JVD Abdomen: Soft, nontender, nondistended. Bowel sounds present. Extremities: Warm, dry, well-perfused. Right lower extremity with darkening erythema from mid phillips down to foot, mild warmth, edema but no areas of fluctuance or discrete tenderness Neuro: Alert and oriented x 4, face symmetric, moves 4 extremities well Psych: Normal affect and behavior Discharge Data Allergies Allergy/AdvReac Type Severity Reaction Status Date / Time No Known Allergies Allergy Verified 08/18/23 21:45 Consultations 08/18/23 20:55 ED Decision to Admit Stat Ordered Studies 08/18/23 22:55 US venous doppler LE RT Urgent 08/19/23 16:03 CT ankle RT wo con Urgent Ankle X-Ray 08/18/23 12:56 XR ankle RT min 3V routine HISTORY: 88 years-old Female Ankle trauma, no prior imaging soft tissue injury of the right ankle COMPARISON: 11/21/2020 TECHNIQUE: 3 views of the right ankle FINDINGS: There is prominent diffuse soft tissue swelling. Mild to moderate osteoarthritis. Degenerative spurring of the calcaneus. No acute fracture, dislocation, radiopaque foreign body or osseous erosion. IMPRESSION: Soft tissue swelling without acute osseous abnormality. ACT 112: Negative or not required by law. The above report was generated using voice recognition software. It may contain grammatical, syntax or spelling errors. Electronically signed by: Mendoza Boyer M.D. 08/18/2023 2:35 PM Chest X-Ray 08/18/23 12:57 XR chest 1V not portable HISTORY: 88 years-old Female illness acute chest pain with nausea COMPARISON: 09/10/2022 TECHNIQUE: AP view of the chest FINDINGS: Cardiac silhouette is enlarged. Lung apices are partially obscured by the patient's chin. No pneumothorax, pleural effusion or overt pulmonary edema. Mild subsegmental bibasilar opacities. Degenerative changes of the spine and left shoulder. Right shoulder arthroplasty. IMPRESSION: 1. Cardiomegaly without acute process. 2. Mild bibasilar atelectasis. ACT 112: Negative or not required by law. The above report was generated using voice recognition software. It may contain grammatical, syntax or spelling errors. Electronically signed by: Mendoza Boyer M.D. 08/18/2023 2:32 PM Venous Doppler Study 08/18/23 22:55 Exam(s): US VENOUS RIGHT LOWER EXTREMITY EXAM: US Duplex Right Lower Extremity Veins CLINICAL HISTORY: Entire right calf red and swollen. TECHNIQUE: Real-time duplex ultrasound scan of the right lower extremity veins integrating B-mode two-dimensional vascular structure, Doppler spectral analysis, color flow Doppler imaging and compression. COMPARISON: No relevant prior studies available. FINDINGS: Deep veins: Unremarkable. No DVT in the visualized common femoral, femoral, proximal deep femoral or popliteal veins. The veins demonstrate normal color flow, are normally compressible, with normal phasic flow and/or augmentation response. The interrogated calf veins are patent. Superficial veins: Unremarkable. No thrombus in the saphenofemoral junction. Soft tissues: Subcutaneous edema noted at the right calf and popliteal fossa. No loculated fluid collection. No popliteal cyst. Lymph nodes: Right inguinal lymph node with a prominent cortex measuring up to 11 mm in short axis diameter. IMPRESSION: No evidence for deep vein thrombosis involving the right lower extremity. Subcutaneous edema from the popliteal fossa through the. No loculated fluid collection. Presumed reactive right inguinal lymph node. Electronically signed by: Rickie Jean MD 08/19/23 01:[address] 08/19/23 16:03 CT ankle RT wo con HISTORY: 88 years-old Female severe cellulitis R phillips acute pain and swelling of the right ankle COMPARISON: None TECHNIQUE: Multiple axial CT images of the right ankle were obtained without the use of IV contrast. A dose lowering technique was used consistent with the principals of ALARA. FINDINGS: Moderate to extensive dermal thickening with subcutaneous edema. No drainable collections. Tendons and ligaments are not well evaluated by CT technique. Moderate osteoarthritis. No acute fracture, dislocation or osseous erosion. IMPRESSION: 1. No acute osseous abnormality. 2. Dermal thickening with subcutaneous edema. Differential considerations include cellulitis, venous stasis or lymphedema. 3. No fluid collections. ACT 112: Negative or not required by law. The above report was generated using voice recognition software. It may contain grammatical, syntax or spelling errors. Electronically signed by: Mendoza Boyer M.D. 08/19/2023 6:56 PM 08/25/23 Range/Units 05:42 Sodium 136 (136-145) mmol/L Potassium 4.3 (3.5-5.1) mmol/L Chloride 100 (98-107) mmol/L Carbon Dioxide 30 (21-32) mmol/L Anion Gap 6 (3-11) BUN 18 (6-23) mg/dl Creatinine 0.87 (0.6-1.2) mg/dl Est Cr Clr Drug Dosing 42.8 ml/min Est GFR ( Amer) 68.9 ml/min Est GFR (Non-Af Amer) 59.5 ml/min BUN/Creatinine Ratio 20.7 H (10-20) Glucose 88 (70-99(Fasting)) mg/dl Calcium 9.8 (8.6-10.3) mg/dl Hospital Course (1) Cellulitis of right leg: IMPROVING clinically on exam and CRP also falling (was 20, now <10). I note presented with very severe right lower extremity cellulitis. CT of right lower extremity was negative for abscess, duplex was negative for DVT. She was treated with IV daptomycin and IV ceftriaxone from the time of admission through 08/25. She had significant improvement however continues to have some residual warmth and erythema and will continue oral antibiotics for at least 7 days upon discharge. I requested she follow-up with her primary care clinic in a week and I did give her a total of 10 days antibiotics prescription so that they can be extended if necessary. Blood cultures were negative. -discharged with po cefadroxil and doxycycline. MRSA seems unlikely given lack of purulence, however, cellulitis was very severe so seems prudent to continue MRSA coverage. (2) Hypertension: Continue hydralazine, losartan, aldactone. BPs acceptable. (3) Idiopathic polyneuropathy: Continue norco prn (4) Hyponatremia: Na 130 on arrival, somewhat chronic but acutely worse related to infection, improved to 136 (5) Mitral regurgitation: Stable Continue to monitor (6) Dilated aortic root: Beta-blockers previously discontinued due to adverse effects (7) Restless legs syndrome: 07/2023 Fe studies wnl Restless leg symptoms improved significantly after increase in dose of pramipexole (8) UTI (urinary tract infection): 2nd pansensitive e.coli s/p rocephin x 6 days adequately treated Total Time Total Time Spent Total Time Spent (In Minutes): 25 Discharge Plan Discharge Items Patient Disposition: Home - Home Health Services Reason For Visit: ANKLE PAIN Discharge Diagnosis: Right lower leg cellulitis Activity: As commented below Activity Comment: keep your right leg elevated until swelling/redness resolves Non-emergency contact: Primary Care Provider Call non-emergency contact if: you have any medication questions and your symptoms worsen Follow-up/Referrals: Makayla Adan [Primary Care Provider] - 09/07/23 3:25 pm Diet: Regular Addtl Attending Provider Instructions: Dear Mrs Casillas, You had a severe skin infection of your right lower leg -xray was negative for fracture -CT was negative for abscess -ultrasound was negative for blood clot -you were treated with IV antibiotics for 6 days (ceftriaxone and daptomycin). I prescribed 10 more days worth of antibiotics, however, you can stop these early if the redness and swelling is resolved when you see the nurse practitioner or doctor next week -keep your leg elevated as much as possible until the redness pain and swelling resolves -come back to the ER if your leg is significantly worse or if you develop fevers 101 or higher For your restless legs we increased your pramipexole Try using the tramadol as needed Anna Wen MD Pending Studies at Discharge: No Stand-Alone Forms: My [facility] [employer], Smoking Cessation Medications and DC Order Prescriptions: New Advanced Probiotic 625 mg (10 billion cell) Capsule 2 cap PO DAILY Qty: 0 0RF Rx Instructions: take probiotic for 2-4 weeks, buy over the counter doxycycline hyclate 100 mg capsule 100 mg PO BID 10 Days Qty: 20 0RF cefadroxil 500 mg capsule 1,000 mg PO BID Qty: 40 0RF Continued tramadol 50 mg tablet 50 mg PO TID 30 Days Qty: 90 5RF Rx Instructions: Dx: G25.81 diphenhydramine HCl [Benadryl Allergy] 25 mg tablet 25 mg PO HS PRN (Reason: Sleep) escitalopram oxalate 10 mg tablet 10 mg PO DAILY PRN (Reason: Anxiety) triamcinolone acetonide 0.1 % cream 1 applic topical DAILY PRN (Reason: Skin Irritation) cholecalciferol (vitamin D3) 50 mcg (2,000 unit) capsule 2,000 unit PO QAM losartan 100 mg tablet 100 mg PO QAM spironolactone 25 mg tablet 25 mg PO DAILY cyanocobalamin (vitamin B-12) 500 mcg tablet 500 mcg PO QAM zinc gluconate 50 mg tablet 50 mg PO QAM ondansetron 4 mg tablet,disintegrating 4 mg PO Q6H PRN (Reason: nausea and vomiting) Qty: 14 0RF desonide 0.05 % Cream 1 applic TOPICAL BID PRN (Reason: Skin Irritation) famotidine 10 mg Tablet 10 mg PO DAILY PRN (Reason: HEARTBURN/INDIGESTION) aspirin 325 mg Tablet 325 mg PO BID PRN (Reason: Pain) urea 20 % Cream 1 applic TOPICAL BID PRN (Reason: NEEDED PER PT'S LIST) hydralazine 25 mg tablet 25 mg PO TID psyllium husk 0.52 gram Capsule 1.04 g PO DAILY diclofenac sodium 1 % Gel 2 g TOPICAL QID PRN (Reason: Pain) magnesium oxide 400 mg magnesium Tablet 400 mg PO DAILY Centrum Minis Women 50 Plus 4 mg iron-200 mcg-25 mcg Tablet 1 tab PO QAM Changed pramipexole 0.5 mg tablet 0.5 mg PO .COMPLEX 30 Days Qty: 150 0RF Rx Instructions: take 3 tabs at noon and 2 tabs at 6pm Discharge Orders: Discharge Order (Routine); Ordered 08/25/23 Ordered By: Anna Wen Admission Data Admit Date/Time: 08/18/23 22:35 Attending Provider: Anna Wen Admit Provider: Дмитрий Valero Primary Care Provider: Makayla Adan Other Providers: Дмитрий Valero Other Interventions: Discharge Summary Assessment (RN) Last Done: 08/25/23 13:53 Coding Level of Care Code 40890 IN/OBS DISCH 30 MIN/LESS Diagnoses Cellulitis of right leg L03.115 Hypertension I10 Idiopathic polyneuropathy G60.9 Hyponatremia E87.1 Mitral regurgitation I34.0 Dilated aortic root I77.810 Restless legs syndrome G25.81 UTI (urinary tract infection) N39.0
== END 2023-08-25 14:35 | disposition home health service (06) | DRG 603 ==
LOC: ED 12:46 → 3W 22:35 → SUATTDRO 22:35 → 3W 23:22
DX: G60.9 Hereditary and idiopathic neuropathy, unspecified; G89.29 Other chronic pain; I77.819 Aortic ectasia, unspecified site; I34.0 Nonrheumatic mitral (valve) insufficiency; I87.2 Venous insufficiency (chronic) (peripheral); N39.0 Urinary tract infection, site not specified; Z79.899 Other long term (current) drug therapy; R11.0 Nausea; I10 Essential (primary) hypertension; B96.20 Unspecified Escherichia coli [E. coli] as the cause of diseases classified elsewhere; M25.512 Pain in left shoulder; E87.1 Hypo-osmolality and hyponatremia; R53.81 Other malaise; L03.115 Cellulitis of right lower limb; Z82.49 Family history of ischemic heart disease and other diseases of the circulatory system; Z79.891 Long term (current) use of opiate analgesic; G25.81 Restless legs syndrome

== ENCOUNTER 2023-12-04 17:22 | Inpatient (IN) ==
[2023-12-04 19:14] LABS: Hematocrit (blood only) 35.3 % (37.0-47.0); Hemoglobin 11.9 g/dl (12.0-16.0); Mean Corpuscular Hgb Conc 33.7 g/dL (32.0-36.0); Mean Corpuscular Volume 86.1 fL (80.0-100.0); Mean Platelet Volume 9.1 fL (9.4-12.4); Platelet Count 229 K/uL (130-400); RDW Coefficient of Variation 14.4 % (11.5-14.5); RDW Standard Deviation 45.5 fL (36.4-46.3); White Blood Count 15.92 K/ul (4.8-10.8)
[2023-12-04 19:21] LABS: Albumin Level 3.7 gm/dl (3.4-5.0); BUN Creatinine Ratio 38.8 (10-20); Bilirubin Direct 0.2 mg/dl (0-0.2); Bilirubin,Total 0.7 mg/dl (0.2-1.0); Calcium 9.7 mg/dl (8.6-10.3); Est GFR (African American) 59.7 ml/min; Est GFR (Non-African American) 51.5 ml/min; Magnesium 1.7 mg/dl (1.7-2.4); Potassium 3.9 mmol/L (3.5-5.1); Total Protein 6.7 gm/dl (6.0-8.3)
[2023-12-04 19:30] LABS: Basophils # (auto) 0.04 K/uL (0.00-0.20); Basophils % (auto) 0.3 %; Immature Granulocytes # (auto) 0.18 K/uL (0.01-0.20); Immature Granulocytes % (auto) 1.1 %; Lymphocytes # (auto) 0.28 K/uL (1.20-3.40); Lymphocytes % (auto) 1.8 %; Monocytes # (auto) 0.55 K/uL (0.11-0.59); Monocytes % (auto) 3.5 %; Neutrophils # (auto) 14.87 K/uL (1.40-6.50); Neutrophils % (auto) 93.3 %
[2023-12-04 19:33] LABS: Base Excess VBG -0.3 mEq/L; HCO3 VBG 23 mmol/L; Oxygen Saturation VBG 67.8 %; PCO2 VBG 32 mmHg (38-50); PO2 VBG 38 mmHg; pH VBG 7.46 (7.36-7.41)
[2023-12-04 19:41] LABS: Partial Thromboplastin Time 29 Seconds (21-31); Prothrombin Time 10.9 Seconds (9.0-12.0)
[2023-12-04] MEDS: ONDANSETRON INJ 2 MG/ML 2 ML VIAL IV STA (19:43)
[2023-12-04] MEDS ORDERED: VANCOMYCIN CONSULT ACTIVE PRN (19:58)
[2023-12-04] MEDS: cefTRIAXone SODIUM 2,000 MG in DEXTROSE 5 % MINI-B 50 ML IV STA (20:49)
[2023-12-04] MEDS: KETOROLAC TROMETHAMINE 15 MG/ML VIAL IV STA (21:08)
[2023-12-04] MEDS: VANCOMYCIN HCL 1,250 MG in SODIUM CHLORIDE 0.9% 500 ML IV STA (21:08)
--- NOTE | 2023-12-04 21:16 | CT Scan Report ---
Exam(s): CT HEAD Without Contrast EXAM: CT Head Without Intravenous Contrast CLINICAL HISTORY: Reason for exam: weakness. TECHNIQUE: Axial computed tomography images of the head/brain without intravenous contrast. CTDI is 44.24 mGy and DLP is 1094.1 mGy-cm. Automated exposure control was utilized for the study. A dose lowering technique was utilized adhering to the principles of ALARA. COMPARISON: No relevant prior studies available. FINDINGS: No acute intracranial hemorrhage. No midline shift or mass effect. The territorial cantrell-white matter differentiation is maintained throughout. Age-related cerebral volume loss. Periventricular and subcortical white matter hypoattenuation, consistent with chronic microangiopathy. The visualized orbits appear grossly unremarkable. The calvarium is intact. The visualized paranasal sinuses and mastoid air cells are grossly clear. IMPRESSION: No acute intracranial hemorrhage, midline shift, or mass effect. Electronically signed by: Wiley Avila MD 12/04/23 21:16 PM
--- NOTE | 2023-12-04 21:17 | Ultrasound Report ---
Exam(s): US VENOUS BILATERAL LOWER EXTREMITIES EXAM: US Duplex Bilateral Lower Extremities Veins CLINICAL HISTORY: Reason for exam: rodvt. TECHNIQUE: Real-time duplex ultrasound scan of the bilateral lower extremity veins integrating B-mode two-dimensional vascular structure, Doppler spectral analysis, color flow Doppler imaging and compression. COMPARISON: No relevant prior studies available. FINDINGS: Right deep veins: Unremarkable. No DVT in the right common femoral, femoral, proximal deep femoral or popliteal veins. The veins demonstrate normal color flow, are normally compressible, with normal phasic flow and/or augmentation response. Right superficial veins: Unremarkable. No thrombus in the visualized right great saphenous vein. Left deep veins: Unremarkable. No DVT in the left common femoral, femoral, proximal deep femoral or popliteal veins. The veins demonstrate normal color flow, are normally compressible, with normal phasic flow and/or augmentation response. Left superficial veins: Unremarkable. No thrombus in the visualized left great saphenous vein. Soft tissues: Subcutaneous edema. IMPRESSION: Normal bilateral lower extremity duplex venous ultrasound. Electronically signed by: Wiley Avila MD 12/04/23 21:16 PM
--- NOTE | 2023-12-04 22:18 | XRay Report ---
SINGLE VIEW CHEST CLINICAL HISTORY: Sepsis FINDINGS: An AP, portable, semierect chest radiograph is compared to study dated 08/18/2023. The heart is enlarged noting atherosclerotic calcification and uncoiling of the thoracic aorta. The pulmonary vasculature is noncongested. Chronic interstitial thickening is similar to previous. There is bibasil ar scarring/atelectasis. The lungs and pleural spaces are otherwise clear. No pneumothorax is seen. T he skeletal structures are osteopenic. The bony thorax is grossly intact. Advanced arthritic change i s seen in left shoulder. A right shoulder arthroplasty is in place. IMPRESSION: Cardiomegaly with no active disease in the chest. ACT 112: Negative or not required by law. Electronically signed by: Merrick James M.D. 12/04/2023 10:17 PM
[2023-12-04] MEDS: MoRPHine SULFATE 2 MG/ML CARP IV STA (22:27)
--- NOTE | 2023-12-04 23:24 | History & Physical Report ---
Date of Service December 04, 2023 Assessment & Plan (1) Cellulitis of both lower extremities: (2) Chronic venous insufficiency: (3) HTN (hypertension): (4) Idiopathic polyneuropathy: (5) Restless legs syndrome: (6) Hypertension: (7) Edema: Plan Cellulitis of bilateral lower extremities/chronic venous insufficiency- Much worse left greater than right Left lower extremity with floppy bolus edema Will consult wound care, as patient would likely benefit from an Unna boot to prevent rupture and erosion of skin Continue vancomycin IV and ceftriaxone IV begun in the ED Anticipate that patient will need ongoing wound care once she is discharged from the hospital Severe bilateral lower extremity pain, left greater than right- Secondary to idiopathic polyneuropathy and restless leg syndrome Give 1 mg of pramipexole this evening, and resume her usual dose at noon and 6 PM tomorrow Continue tramadol 50 mg p.o. 3 times daily Hypertension- Relatively hypotensive at this point Stop hydralazine, as this should also help with some of the edema Continue lisinopril Hold spironolactone for now Patient looks intravascularly dry, placed on NSS + KCl 20 mEq at 60 mL/h x 1 L History of Present Illness Chief Complaint: The patient presents to the emergency department with her , with complaint of bilateral lower extremity pain and fever that developed today, after having had worsening redness and swelling over the past few weeks. Primary Care Provider: Makayla Adan The patient is an 88-year-old female, who supplies history with help of her , with a past medical history including cellulitis of both lower extremities, polyarthritis, restless leg syndrome, idiopathic polyneuropathy, hypertension, and with plans for future shoulder replacement surgery in January. She presents to the emergency department with worsening lower extremity redness and swelling, and developed fever and pain over the past 24 to 48 hours. The patient is very fatigued, keeps her eyes closed through most of the interview, and her supplies most of the history. Patient does primarily complain of severe bilateral lower extremity pain, left greater than right that she attributes to her restless leg syndrome, having not been able to take her medications earlier in the day Allergies Allergy/AdvReac Type Severity Reaction Status Date / Time No Known Allergies Allergy Verified 11/24/23 14:40 Home Medications Medication Instructions Recorded Confirmed Type cyanocobalamin (vitamin B-12) 500 500 mcg PO QAM 05/01/20 12/04/23 History mcg tablet triamcinolone acetonide 0.1 % 1 applic topical DAILY PRN Skin 09/25/20 12/04/23 History topical cream Irritation cholecalciferol (vitamin D3) 50 2,000 unit PO QAM 02/11/21 12/04/23 History mcg (2,000 unit) capsule losartan 100 mg tablet 100 mg PO QAM 02/11/21 12/04/23 History zinc gluconate 50 mg tablet 50 mg PO QAM 02/11/21 12/04/23 History diphenhydramine HCl 25 mg tablet 25 mg PO HS PRN Sleep 07/16/21 12/04/23 History (Benadryl Allergy) ondansetron 4 mg disintegrating 4 mg PO Q6H PRN nausea and 09/10/22 12/04/23 Rx tablet vomiting #14 tabs escitalopram oxalate 10 mg tablet 10 mg PO DAILY Anxiety 09/24/22 12/04/23 History aspirin 325 mg tablet 325 mg PO BID PRN Pain 08/18/23 12/04/23 History desonide 0.05 % topical cream 1 applic topical BID PRN Skin 08/18/23 12/04/23 History Irritation diclofenac sodium 1 % topical gel 2 g topical QID PRN Pain 08/18/23 12/04/23 History hydralazine 25 mg tablet 25 mg PO TID 08/18/23 12/04/23 History [id number] 4 mg-folic acid 1 tab PO QAM 08/18/23 12/04/23 History 200 mcg-vit K 25 mcg-lutein tablet (Centrum Minis Women 50 Plus) psyllium husk 0.52 gram capsule 1.04 g PO DAILY 08/18/23 12/04/23 History pramipexole 0.5 mg tablet 0.5 mg PO .COMPLEX 30 days #150 10/26/23 12/04/23 Rx tabs tramadol 50 mg tablet 50 mg PO TID 30 days #90 tabs 11/16/23 12/04/23 Rx famotidine 10 mg tablet 20 mg PO DAILY PRN 11/20/23 12/04/23 History HEARTBURN/INDIGESTION spironolactone 25 mg tablet 50 mg PO DAILY 11/20/23 12/04/23 History celecoxib 200 mg capsule (Celebrex) 200 mg PO BID #60 caps 12/01/23 12/04/23 Rx Past Med/Surg History Medical History Acute hyponatremia Dizziness Symptomatic bradycardia Impacted cerumen, bilateral Eczema of lower extremity Exertional dyspnea Frequency of urination and polyuria History of colon cancer, stage I HTN (hypertension) Surgical History History of cardiac cath (2013) History of tubal ligation (1970) History of shoulder surgery History of knee replacement (2012) History of colonoscopy History of cataract surgery (2009) left History of appendectomy (2012) Tubal ligation status History of colon surgery History of right shoulder replacement Total knee replacement status Family History Father Hypertension Cardiac arrest CHF (congestive heart failure) Mother Hypertension Cardiac arrest Cardiac disorder Stroke Sister Hypertension Stroke Aunt Stomach cancer Denies family history of Ovarian cancer Prostate cancer Myocardial infarction Breast cancer Bleeding disorder Colorectal cancer Social History Smoking Status: Never smoker Second Hand Exposure: No; Do You Dip or Chew Tobacco: No; Hx Alcohol Use: No Hx Substance Use: No Preferred Language: Cameroonian Communication Ability: Effective Visual Impairment: No Limitations Hearing Ability: Hard of Hearing Office Supervisor Required: No Beliefs That Will Affect Care: None marital status: Current Living Situation: Spouse Current Living Situation Comment: living with current occupational status: retired Other Information That Helps Us Care for You: No Feels Safe at Home: Yes Safety Concerns: Feels Safe At This Time Childhood Exposure to Second-Hand Smoke: Yes Dental Care, Regularly: Yes Physical Activity Frequency: Does not Exercise Seatbelt Use: always Sunscreen Use: No Assistive Devices: Cane Review of Systems Review of Systems: Review of systems as noted above and supplied primarily by Physical Exam Physical Exam: The patient is lethargic, keeps her eyes closed most of the interview, normocephalic and atraumatic, HEENT--PERRL, EOMI, mucous membranes and oropharynx mildly dry. Neck--supple. No JVD. No bruits. Thyroid normal, trachea midline, no adenopathy. Heart--normal S1 and S2. No murmurs, rubs or gallops. Lungs--clear bilaterally, no respiratory distress, no accessory muscle use. Abdomen--normal bowel sounds and soft. Nontender. Nondistended, no hernias or masses, no organomegaly. Extremities--large bullous changes with floppy edema left lower extremity. Trace pitting edema right lower extremity Dermatologic-moderately severe erythema right lower extremity, with mild erythema left lower extremity Neurologic--cranial nerves II through XII grossly intact. Rheumatologic--limited exam Psychiatric--fatigued and lethargic Results & Data Results & Data Vital Signs (Past 12 Hours) Vital Signs Temp Pulse Pulse Resp BP BP Pulse Ox 12/04/23 22:00 104 H 19 120/78 12/04/23 21:45 110 H 12/04/23 21:30 128 H 23 119/86 96 12/04/23 21:01 107 H 29 H 139/68 94 12/04/23 21:00 104 H 22 94 12/04/23 20:53 107 H 26 H 133/85 94 12/04/23 20:53 37.5 C 106 H 14 133/85 94 12/04/23 20:01 102 H 21 93 12/04/23 19:30 94 12/04/23 19:00 122/88 94 12/04/23 18:59 114 H 22 95 12/04/23 18:21 103 H 12/04/23 17:28 37.4 C 110 H 20 168/78 H 91 O2 Del Method 12/04/23 22:00 12/04/23 21:45 12/04/23 21:30 12/04/23 21:01 12/04/23 21:00 12/04/23 20:53 12/04/23 20:53 Room Air 12/04/23 20:01 12/04/23 19:30 12/04/23 19:00 12/04/23 18:59 Room Air 12/04/23 18:21 12/04/23 17:28 Room Air Laboratory Results Laboratory Results WBC 15.92 K/ul (4.8-10.8) H 12/04/23 17:42 RBC 4.10 M/uL (4.20-5.40) L 12/04/23 17:42 Hgb 11.9 g/dl (12.0-16.0) L 12/04/23 17:42 Hct 35.3 % (37.0-47.0) L 12/04/23 17:42 MCV 86.1 fL (80.0-100.0) 12/04/23 17:42 MCH 29.0 pg (25.0-34.0) 12/04/23 17:42 MCHC 33.7 g/dL (32.0-36.0) 12/04/23 17:42 RDW Std Deviation 45.5 fL (36.4-46.3) 12/04/23 17:42 RDW Coeff of Xavier 14.4 % (11.5-14.5) 12/04/23 17:42 Plt Count 229 K/uL (130-400) 12/04/23 17:42 MPV 9.1 fL (9.4-12.4) L 12/04/23 17:42 Immature Gran % (Auto) 1.1 % 12/04/23 17:42 Neut % (Auto) 93.3 % 12/04/23 17:42 Lymph % (Auto) 1.8 % 12/04/23 17:42 Yates % (Auto) 3.5 % 12/04/23 17:42 Eos % (Auto) 0.0 % 12/04/23 17:42 Baso % (Auto) 0.3 % 12/04/23 17:42 Neut # (Auto) 14.87 K/uL (1.40-6.50) H 12/04/23 17:42 Lymph # (Auto) 0.28 K/uL (1.20-3.40) L 12/04/23 17:42 Yates # (Auto) 0.55 K/uL (0.11-0.59) 12/04/23 17:42 Eos # (Auto) 0.00 K/uL (0.00-0.50) 12/04/23 17:42 Baso # (Auto) 0.04 K/uL (0.00-0.20) 12/04/23 17:42 Immature Gran # (Auto) 0.18 K/uL (0.01-0.20) 12/04/23 17:42 PT 10.9 Seconds (9.0-12.0) 12/04/23 17:42 INR 1.0 (0.9-1.1) 12/04/23 17:42 APTT 29 Seconds (21-31) 12/04/23 17:42 PTT Ratio 1.0 12/04/23 17:42 VBG pH 7.46 (7.36-7.41) H 12/04/23 19:22 VBG pCO2 32 mmHg (38-50) L 12/04/23 19:22 VBG pO2 38 mmHg 12/04/23 19:22 VBG HCO3 23 mmol/L 12/04/23 19:22 VBG O2 Saturation 67.8 % 12/04/23 19:22 VBG Base Excess -0.3 mEq/L 12/04/23 19:22 Sodium 131 mmol/L (136-145) L 12/04/23 17:42 Potassium 3.9 mmol/L (3.5-5.1) 12/04/23 17:42 Chloride 102 mmol/L (98-107) 12/04/23 17:42 Carbon Dioxide 21 mmol/L (21-32) 12/04/23 17:42 Anion Gap 8 (3-11) 12/04/23 17:42 BUN 38 mg/dl (6-23) H 12/04/23 17:42 Creatinine 0.98 mg/dl (0.6-1.2) 12/04/23 17:42 Est Cr Clr Drug Dosing 39.0 ml/min 12/04/23 17:42 Est GFR ( Amer) 59.7 ml/min 12/04/23 17:42 Est GFR (Non-Af Amer) 51.5 ml/min 12/04/23 17:42 BUN/Creatinine Ratio 38.8 (10-20) H 12/04/23 17:42 Glucose 101 mg/dl (70-99(Fasting)) H 12/04/23 17:42 Lactate 1.6 mmol/L (0.4-2.0) 12/04/23 19:22 Calcium 9.7 mg/dl (8.6-10.3) 12/04/23 17:42 Magnesium 1.7 mg/dl (1.7-2.4) 12/04/23 17:42 Total Bilirubin 0.7 mg/dl (0.2-1.0) 12/04/23 17:42 Direct Bilirubin 0.2 mg/dl (0-0.2) 12/04/23 17:42 AST 27 U/L (13-39) 12/04/23 17:42 ALT 23 U/L (7-52) 12/04/23 17:42 Alkaline Phosphatase 53 U/L (34-104) 12/04/23 17:42 Troponin I High Sens 20.0 pg/ml (0-14) H 12/04/23 17:42 Total Protein 6.7 gm/dl (6.0-8.3) 12/04/23 17:42 Albumin 3.7 gm/dl (3.4-5.0) 12/04/23 17:42 Procalcitonin 3.93 ng/ml (0-0.5) H 12/04/23 17:42 Impressions Chest X-Ray 12/04/23 18:50 SINGLE VIEW CHEST CLINICAL HISTORY: Sepsis FINDINGS: An AP, portable, semierect chest radiograph is compared to study dated 08/18/2023. The heart is enlarged noting atherosclerotic calcification and uncoiling of the thoracic aorta. The pulmonary vasculature is noncongested. Chronic interstitial thickening is similar to previous. There is bibasilar scarring/atelectasis. The lungs and pleural spaces are otherwise clear. No pneumothorax is seen. The skeletal structures are osteopenic. The bony thorax is grossly intact. Advanced arthritic change is seen in left shoulder. A right shoulder arthroplasty is in place. IMPRESSION: Cardiomegaly with no active disease in the chest. ACT 112: Negative or not required by law. Electronically signed by: Merrick James M.D. 12/04/2023 10:[address] 12/04/23 18:51 Exam(s): CT HEAD Without Contrast EXAM: CT Head Without Intravenous Contrast CLINICAL HISTORY: Reason for exam: weakness. TECHNIQUE: Axial computed tomography images of the head/brain without intravenous contrast. CTDI is 44.24 mGy and DLP is 1094.1 mGy-cm. Automated exposure control was utilized for the study. A dose lowering technique was utilized adhering to the principles of ALARA. COMPARISON: No relevant prior studies available. FINDINGS: No acute intracranial hemorrhage. No midline shift or mass effect. The territorial cantrell-white matter differentiation is maintained throughout. Age-related cerebral volume loss. Periventricular and subcortical white matter hypoattenuation, consistent with chronic microangiopathy. The visualized orbits appear grossly unremarkable. The calvarium is intact. The visualized paranasal sinuses and mastoid air cells are grossly clear. IMPRESSION: No acute intracranial hemorrhage, midline shift, or mass effect. Electronically signed by: Wiley Avila MD 12/04/23 21:16 PM Venous Doppler Study 12/04/23 18:51 Exam(s): US VENOUS BILATERAL LOWER EXTREMITIES EXAM: US Duplex Bilateral Lower Extremities Veins CLINICAL HISTORY: Reason for exam: rodvt. TECHNIQUE: Real-time duplex ultrasound scan of the bilateral lower extremity veins integrating B-mode two-dimensional vascular structure, Doppler spectral analysis, color flow Doppler imaging and compression. COMPARISON: No relevant prior studies available. FINDINGS: Right deep veins: Unremarkable. No DVT in the right common femoral, femoral, proximal deep femoral or popliteal veins. The veins demonstrate normal color flow, are normally compressible, with normal phasic flow and/or augmentation response. Right superficial veins: Unremarkable. No thrombus in the visualized right great saphenous vein. Left deep veins: Unremarkable. No DVT in the left common femoral, femoral, proximal deep femoral or popliteal veins. The veins demonstrate normal color flow, are normally compressible, with normal phasic flow and/or augmentation response. Left superficial veins: Unremarkable. No thrombus in the visualized left great saphenous vein. Soft tissues: Subcutaneous edema. IMPRESSION: Normal bilateral lower extremity duplex venous ultrasound. Electronically signed by: Wiley Avila MD 12/04/23 21:16 PM Code Status & VTE Plan Code Status Full code VTE Prophylaxis Plan VTE Prophylaxis will be ordered: Yes PG Care Time/CCT Total # of Minutes Spent Total Time Spent with Patient: Total time spent is greater than 50% in coordination of care (as documented) at patient's floor/unit and/or counseling patient: Coding Level of Care Code 31432 INT INP/OBS CARE 3/75MIN Diagnoses Cellulitis of both lower extremities L03.115; L03.116 Chronic venous insufficiency I87.2 HTN (hypertension) I10 Idiopathic polyneuropathy G60.9 Restless legs syndrome G25.81 Edema R60.9
--- NOTE | 2023-12-05 00:10 | Emergency Department Note ---
History of Present Illness General Chief complaint: Illness Time Seen by Provider: 12/04/23 18:16 Source: family ( at bedside) History of Present Illness Provider complaint: Bilateral lower extremity pain Onset (ago): day(s) 1 Maximum Pain Intensity: 9 88-year-old female presents emergency department with for bilateral lower extremity pain and fever. reports that the patient was having nausea and vomiting. Symptoms began today. No chest pain or difficulty breathing. No headaches. No falls or traumas. Home Medications Medication Instructions Recorded Confirmed Type cyanocobalamin (vitamin B-12) 500 500 mcg PO QAM 05/01/20 12/04/23 History mcg tablet triamcinolone acetonide 0.1 % 1 applic topical DAILY PRN Skin 09/25/20 12/04/23 History topical cream Irritation cholecalciferol (vitamin D3) 50 2,000 unit PO QAM 02/11/21 12/04/23 History mcg (2,000 unit) capsule losartan 100 mg tablet 100 mg PO QAM 02/11/21 12/04/23 History zinc gluconate 50 mg tablet 50 mg PO QAM 02/11/21 12/04/23 History diphenhydramine HCl 25 mg tablet 25 mg PO HS PRN Sleep 07/16/21 12/04/23 History (Benadryl Allergy) ondansetron 4 mg disintegrating 4 mg PO Q6H PRN nausea and 09/10/22 12/04/23 Rx tablet vomiting #14 tabs escitalopram oxalate 10 mg tablet 10 mg PO DAILY Anxiety 09/24/22 12/04/23 History aspirin 325 mg tablet 325 mg PO BID PRN Pain 08/18/23 12/04/23 History desonide 0.05 % topical cream 1 applic topical BID PRN Skin 08/18/23 12/04/23 History Irritation diclofenac sodium 1 % topical gel 2 g topical QID PRN Pain 08/18/23 12/04/23 History hydralazine 25 mg tablet 25 mg PO TID 08/18/23 12/04/23 History [id number] 4 mg-folic acid 1 tab PO QAM 08/18/23 12/04/23 History 200 mcg-vit K 25 mcg-lutein tablet (Centrum Minis Women 50 Plus) psyllium husk 0.52 gram capsule 1.04 g PO DAILY 08/18/23 12/04/23 History pramipexole 0.5 mg tablet 0.5 mg PO .COMPLEX 30 days #150 10/26/23 12/04/23 Rx tabs tramadol 50 mg tablet 50 mg PO TID 30 days #90 tabs 11/16/23 12/04/23 Rx famotidine 10 mg tablet 20 mg PO DAILY PRN 11/20/23 12/04/23 History HEARTBURN/INDIGESTION spironolactone 25 mg tablet 50 mg PO DAILY 11/20/23 12/04/23 History celecoxib 200 mg capsule (Celebrex) 200 mg PO BID #60 caps 12/01/23 12/04/23 Rx Allergies Allergy/AdvReac Type Severity Reaction Status Date / Time No Known Allergies Allergy Verified 11/24/23 14:40 Past Med/Surg History Medical History Acute hyponatremia Dizziness Symptomatic bradycardia Impacted cerumen, bilateral Eczema of lower extremity Exertional dyspnea Frequency of urination and polyuria History of colon cancer, stage I HTN (hypertension) Surgical History History of cardiac cath (2013) History of tubal ligation (1970) History of shoulder surgery History of knee replacement (2012) History of colonoscopy History of cataract surgery (2009) left History of appendectomy (2012) Tubal ligation status History of colon surgery History of right shoulder replacement Total knee replacement status Family History Father Hypertension Cardiac arrest CHF (congestive heart failure) Mother Hypertension Cardiac arrest Cardiac disorder Stroke Sister Hypertension Stroke Aunt Stomach cancer Denies family history of Ovarian cancer Prostate cancer Myocardial infarction Breast cancer Bleeding disorder Colorectal cancer Social History Smoking Status: Never smoker Second Hand Exposure: No; Do You Dip or Chew Tobacco: No; Hx Alcohol Use: No Hx Substance Use: No Preferred Language: Monegasque Communication Ability: Effective Visual Impairment: No Limitations Hearing Ability: Hard of Hearing Community Education Specialist Required: No Beliefs That Will Affect Care: None marital status: Current Living Situation: Spouse current occupational status: retired Feels Safe at Home: Yes Childhood Exposure to Second-Hand Smoke: Yes Dental Care, Regularly: Yes Physical Activity Frequency: Does not Exercise Seatbelt Use: always Sunscreen Use: No Assistive Devices: Cane Physical Exam Vital Signs Vital Signs - 24 hr 12/04/23 17:28 12/04/23 18:21 12/04/23 18:59 Temperature 37.4 C Temperature Source Oral Pulse Rate 110 H 103 H 114 H Pulse Rate [Apical] Pulse Rate from SpO2 Sensor Pulse Rhythm Regular Respiratory Rate 20 22 Respiratory Effort / Characteristics Respiratory Depth Blood Pressure 168/78 H Blood Pressure [Right Arm] Blood Pressure Mean 108 Blood Pressure Mean [Right Arm] Pulse Oximetry 91 95 Oxygen Delivery Method Room Air Room Air Sepsis Recent Fever Within 48 Hours No Sepsis New/Unexplained Change in Mental Status No Sepsis Action Taken by Nursing No Action Required 12/04/23 19:00 12/04/23 19:30 12/04/23 20:01 Temperature Temperature Source Pulse Rate 102 H Pulse Rate [Apical] Pulse Rate from SpO2 Sensor 110 H 128 H 102 H Pulse Rhythm Respiratory Rate 21 Respiratory Effort / Characteristics Respiratory Depth Blood Pressure 122/88 Blood Pressure [Right Arm] Blood Pressure Mean 99 Blood Pressure Mean [Right Arm] Pulse Oximetry 94 94 93 Oxygen Delivery Method Sepsis Recent Fever Within 48 Hours Sepsis New/Unexplained Change in Mental Status Sepsis Action Taken by Nursing 12/04/23 20:53 12/04/23 20:53 12/04/23 21:00 Temperature 37.5 C Temperature Source Oral Pulse Rate 107 H 104 H Pulse Rate [Apical] 106 H Pulse Rate from SpO2 Sensor 106 H 114 H Pulse Rhythm Respiratory Rate 14 26 H 22 Respiratory Effort / Characteristics Non-Labored Spontaneous Respiratory Depth Normal Blood Pressure 133/85 Blood Pressure [Right Arm] 133/85 Blood Pressure Mean 101 Blood Pressure Mean [Right Arm] 101 Pulse Oximetry 94 94 94 Oxygen Delivery Method Room Air Sepsis Recent Fever Within 48 Hours Sepsis New/Unexplained Change in Mental Status Sepsis Action Taken by Nursing 12/04/23 21:01 12/04/23 21:30 12/04/23 21:45 Temperature Temperature Source Pulse Rate 107 H 128 H 110 H Pulse Rate [Apical] Pulse Rate from SpO2 Sensor 114 H 107 H Pulse Rhythm Respiratory Rate 29 H 23 Respiratory Effort / Characteristics Respiratory Depth Blood Pressure 139/68 119/86 Blood Pressure [Right Arm] Blood Pressure Mean 91 97 Blood Pressure Mean [Right Arm] Pulse Oximetry 94 96 Oxygen Delivery Method Sepsis Recent Fever Within 48 Hours Sepsis New/Unexplained Change in Mental Status Sepsis Action Taken by Nursing 12/04/23 22:00 12/04/23 22:30 12/04/23 22:31 Temperature Temperature Source Pulse Rate 104 H 96 H Pulse Rate [Apical] Pulse Rate from SpO2 Sensor Pulse Rhythm Respiratory Rate 19 13 Respiratory Effort / Characteristics Respiratory Depth Blood Pressure 120/78 Blood Pressure [Right Arm] Blood Pressure Mean 92 56 Blood Pressure Mean [Right Arm] Pulse Oximetry Oxygen Delivery Method Sepsis Recent Fever Within 48 Hours Sepsis New/Unexplained Change in Mental Status Sepsis Action Taken by Nursing 12/04/23 22:31 12/04/23 23:00 12/04/23 23:30 Temperature Temperature Source Pulse Rate 97 H 88 79 Pulse Rate [Apical] Pulse Rate from SpO2 Sensor Pulse Rhythm Respiratory Rate 20 20 20 Respiratory Effort / Characteristics Respiratory Depth Blood Pressure 111/79 116/62 Blood Pressure [Right Arm] Blood Pressure Mean 89 80 Blood Pressure Mean [Right Arm] Pulse Oximetry Oxygen Delivery Method Sepsis Recent Fever Within 48 Hours Sepsis New/Unexplained Change in Mental Status Sepsis Action Taken by Nursing 12/04/23 23:48 Temperature Temperature Source Pulse Rate Pulse Rate [Apical] Pulse Rate from SpO2 Sensor Pulse Rhythm Respiratory Rate Respiratory Effort / Characteristics Respiratory Depth Blood Pressure Blood Pressure [Right Arm] Blood Pressure Mean Blood Pressure Mean [Right Arm] Pulse Oximetry Oxygen Delivery Method Room Air Sepsis Recent Fever Within 48 Hours Sepsis New/Unexplained Change in Mental Status Sepsis Action Taken by Nursing Physical Exam HENT: Exam performed. -Head: Normocephalic and atraumatic. EYES: Conjunctivae and EOM are normal. Pupils are equal, round, and reactive to light. Right eye exhibits no discharge. Left eye exhibits no discharge. No scleral icterus. NECK: Normal range of motion. Neck supple. No JVD present. CV: Normal rate, regular rhythm, normal heart sounds and intact distal pulses. Palpable radial pulses bue. PULM/CHEST: Effort normal and breath sounds normal. No respiratory distress. No stridor. She has no wheezes. She has no rales. ABD: The abdomen is soft. There is no tenderness. There is no rebound, no guarding MUSC/SKEL: 2+ pitting edema of the bilateral lower extremities with circumferential erythema. Warmth. Nikolsky negative. No vesicles. No fluctuant areas. NEURO: Motor and sensation grossly intact. Course Course 1815: The patient was evaluated in room C9. A complete history and physical exam was performed Cardiac monitoring: An order was placed for continuous cardiac monitoring. The monitor shows a rate of 100 with sinus rhythm interpreted by wi 2000: Vital signs stable. Labs show leukocytosis of 15.92. Procalcitonin is elevated. High-sensitivity troponin is elevated at 20. Patient be treated with antibiotics for presumed cellulitis 2215: Vital signs stable. Bilateral lower extremity ultrasound shows no DVT CT of the head within normal limits. Chest x-ray negative. [facility]. Administered Medications Discontinued Medications Ceftriaxone Sodium 2,000 mg/ (Dextrose) 50 mls @ 100 mls/hr IV NOW STA; Protocol Stop: 12/04/23 20:27 Last Infusion: 12/04/23 21:15 Dose: Infused Documented By: Admin: 12/04/23 20:49 Dose: 100 mls/hr Documented By: TERESITA Vancomycin HCl 1,250 mg/ (Sodium Chloride) 525 mls @ 200 mls/hr IV NOW STA Stop: 12/04/23 22:35 Last Infusion: 12/04/23 23:22 Dose: Infused Documented By: Admin: 12/04/23 21:08 Dose: 200 mls/hr Documented By: TERESITA Ketorolac Tromethamine (Ketorolac Tromethamine 15 Mg/Ml Vial) 15 mg IV NOW STA Stop: 12/04/23 21:01 Last Admin: 12/04/23 21:08 Dose: 15 mg Documented By: TERESITA Morphine Sulfate (Morphine Sulfate 2 Mg/Ml Carp) 2 mg IV NOW STA Stop: 12/04/23 22:15 Last Admin: 12/04/23 22:27 Dose: 2 mg Documented By: TERESITA Ondansetron HCl (Ondansetron Inj 2 Mg/Ml 2 Ml Vial) 4 mg IV NOW STA Stop: 12/04/23 19:40 Last Admin: 12/04/23 19:43 Dose: 4 mg Documented By: TERESITA Medical Decision Making Laboratory Data Attestation: I reviewed the patient's lab results. 12/04/23 17:42 12/04/23 17:42 Lab Results 12/04/23 12/04/23 Range/Units 17:42 19:22 WBC 15.92 H (4.8-10.8) K/ul RBC 4.10 L (4.20-5.40) M/uL Hgb 11.9 L (12.0-16.0) g/dl Hct 35.3 L (37.0-47.0) % MCV 86.1 (80.0-100.0) fL MCH 29.0 (25.0-34.0) pg MCHC 33.7 (32.0-36.0) g/dL RDW Std Deviation 45.5 (36.4-46.3) fL RDW Coeff of Xavier 14.4 (11.5-14.5) % Plt Count 229 (130-400) K/uL MPV 9.1 L (9.4-12.4) fL Immature Gran % (Auto) 1.1 % Neut % (Auto) 93.3 % Lymph % (Auto) 1.8 % Coke % (Auto) 3.5 % Eos % (Auto) 0.0 % Baso % (Auto) 0.3 % Neut # (Auto) 14.87 H (1.40-6.50) K/uL Lymph # (Auto) 0.28 L (1.20-3.40) K/uL Coke # (Auto) 0.55 (0.11-0.59) K/uL Eos # (Auto) 0.00 (0.00-0.50) K/uL Baso # (Auto) 0.04 (0.00-0.20) K/uL Immature Gran # (Auto) 0.18 (0.01-0.20) K/uL PT 10.9 (9.0-12.0) Seconds INR 1.0 (0.9-1.1) APTT 29 (21-31) Seconds PTT Ratio 1.0 VBG pH 7.46 H (7.36-7.41) VBG pCO2 32 L (38-50) mmHg VBG pO2 38 mmHg VBG HCO3 23 mmol/L VBG O2 Saturation 67.8 % VBG Base Excess -0.3 mEq/L Sodium 131 L (136-145) mmol/L Potassium 3.9 (3.5-5.1) mmol/L Chloride 102 (98-107) mmol/L Carbon Dioxide 21 (21-32) mmol/L Anion Gap 8 (3-11) BUN 38 H (6-23) mg/dl Creatinine 0.98 (0.6-1.2) mg/dl Est Cr Clr Drug Dosing 39.0 ml/min Est GFR ( Amer) 59.7 ml/min Est GFR (Non-Af Amer) 51.5 ml/min BUN/Creatinine Ratio 38.8 H (10-20) Glucose 101 H (70-99(Fasting)) mg/dl Lactate 1.6 (0.4-2.0) mmol/L Calcium 9.7 (8.6-10.3) mg/dl Magnesium 1.7 (1.7-2.4) mg/dl Total Bilirubin 0.7 (0.2-1.0) mg/dl Direct Bilirubin 0.2 (0-0.2) mg/dl AST 27 (13-39) U/L ALT 23 (7-52) U/L Alkaline Phosphatase 53 (34-104) U/L Troponin I High Sens 20.0 H (0-14) pg/ml Total Protein 6.7 (6.0-8.3) gm/dl Albumin 3.7 (3.4-5.0) gm/dl Procalcitonin 3.93 H (0-0.5) ng/ml Imaging Data Radiologist's Impression: Chest X-Ray 12/04/23 18:50 SINGLE VIEW CHEST CLINICAL HISTORY: Sepsis FINDINGS: An AP, portable, semierect chest radiograph is compared to study dated 08/18/2023. The heart is enlarged noting atherosclerotic calcification and uncoiling of the thoracic aorta. The pulmonary vasculature is noncongested. Chronic interstitial thickening is similar to previous. There is bibasilar scarring/atelectasis. The lungs and pleural spaces are otherwise clear. No pneumothorax is seen. The skeletal structures are osteopenic. The bony thorax is grossly intact. Advanced arthritic change is seen in left shoulder. A right shoulder arthroplasty is in place. IMPRESSION: Cardiomegaly with no active disease in the chest. ACT 112: Negative or not required by law. Electronically signed by: Merrick James M.D. 12/04/2023 10:[address] 12/04/23 18:51 Exam(s): CT HEAD Without Contrast EXAM: CT Head Without Intravenous Contrast CLINICAL HISTORY: Reason for exam: weakness. TECHNIQUE: Axial computed tomography images of the head/brain without intravenous contrast. CTDI is 44.24 mGy and DLP is 1094.1 mGy-cm. Automated exposure control was utilized for the study. A dose lowering technique was utilized adhering to the principles of ALARA. COMPARISON: No relevant prior studies available. FINDINGS: No acute intracranial hemorrhage. No midline shift or mass effect. The territorial cantrell-white matter differentiation is maintained throughout. Age-related cerebral volume loss. Periventricular and subcortical white matter hypoattenuation, consistent with chronic microangiopathy. The visualized orbits appear grossly unremarkable. The calvarium is intact. The visualized paranasal sinuses and mastoid air cells are grossly clear. IMPRESSION: No acute intracranial hemorrhage, midline shift, or mass effect. Electronically signed by: Wiley Avila MD 12/04/23 21:16 PM Venous Doppler Study 12/04/23 18:51 Exam(s): US VENOUS BILATERAL LOWER EXTREMITIES EXAM: US Duplex Bilateral Lower Extremities Veins CLINICAL HISTORY: Reason for exam: rodvt. TECHNIQUE: Real-time duplex ultrasound scan of the bilateral lower extremity veins integrating B-mode two-dimensional vascular structure, Doppler spectral analysis, color flow Doppler imaging and compression. COMPARISON: No relevant prior studies available. FINDINGS: Right deep veins: Unremarkable. No DVT in the right common femoral, femoral, proximal deep femoral or popliteal veins. The veins demonstrate normal color flow, are normally compressible, with normal phasic flow and/or augmentation response. Right superficial veins: Unremarkable. No thrombus in the visualized right great saphenous vein. Left deep veins: Unremarkable. No DVT in the left common femoral, femoral, proximal deep femoral or popliteal veins. The veins demonstrate normal color flow, are normally compressible, with normal phasic flow and/or augmentation response. Left superficial veins: Unremarkable. No thrombus in the visualized left great saphenous vein. Soft tissues: Subcutaneous edema. IMPRESSION: Normal bilateral lower extremity duplex venous ultrasound. Electronically signed by: Wiley Avila MD 12/04/23 21:16 PM ECG Data Attestation: I personally reviewed and interpreted this ECG as follows: Additional Comments: Sinus tachycardia with rate of 110. IN 254 QRS [address] elevation or ST depression. [facility] Narrative 1816: The patient was evaluated in room C9. A complete history and physical exam was performed Cardiac monitoring: An order was placed for continuous cardiac monitoring. The monitor shows a rate of 100 with sinus rhythm interpreted by me 2000: Vital signs stable. Labs show leukocytosis of 15.92. Procalcitonin is elevated. High-sensitivity troponin is elevated at 20. Patient be treated with antibiotics for presumed cellulitis 2215: Vital signs stable. Bilateral lower extremity ultrasound shows no DVT CT of the head within normal limits. Chest x-ray negative. Patient will be admitted to the [facility] hospitalist team. Impression & Plan Cellulitis, Elevated troponin Discharge Plan Visit Data Chief Complaint: Illness ED Provider: Justin Mallory Discharge Problem: Cellulitis, Elevated troponin Patient Disposition: Admitted As Inpatient Discharge Instructions Interventions: ED Discharge Assessment Last Done: 12/04/23 23:48 Forms Stand Alone Forms: My [facility] Prescriptions Prescriptions: No Action pramipexole 0.5 mg tablet 0.5 mg PO .COMPLEX 30 Days Qty: 150 5RF Rx Instructions: take 3 tabs at noon and 2 tabs at 6pm tramadol 50 mg tablet 50 mg PO TID 30 Days Qty: 90 5RF Rx Instructions: Dx: G60.9 diphenhydramine HCl [Benadryl Allergy] 25 mg tablet 25 mg PO HS PRN (Reason: Sleep) escitalopram oxalate 10 mg tablet 10 mg PO DAILY triamcinolone acetonide 0.1 % cream 1 applic topical DAILY PRN (Reason: Skin Irritation) cholecalciferol (vitamin D3) 50 mcg (2,000 unit) capsule 2,000 unit PO QAM losartan 100 mg tablet 100 mg PO QAM spironolactone 25 mg tablet 50 mg PO DAILY cyanocobalamin (vitamin B-12) 500 mcg tablet 500 mcg PO QAM zinc gluconate 50 mg tablet 50 mg PO QAM celecoxib [Celebrex] 200 mg capsule 200 mg PO BID Qty: 60 1RF ondansetron 4 mg tablet,disintegrating 4 mg PO Q6H PRN (Reason: nausea and vomiting) Qty: 14 0RF desonide 0.05 % Cream 1 applic TOPICAL BID PRN (Reason: Skin Irritation) aspirin 325 mg Tablet 325 mg PO BID PRN (Reason: Pain) hydralazine 25 mg tablet 25 mg PO TID psyllium husk 0.52 gram Capsule 1.04 g PO DAILY diclofenac sodium 1 % Gel 2 g TOPICAL QID PRN (Reason: Pain) Centrum Minis Women 50 Plus 4 mg iron-200 mcg-25 mcg Tablet 1 tab PO QAM famotidine 10 mg tablet 20 mg PO DAILY PRN (Reason: HEARTBURN/INDIGESTION) Referrals Referrals: Makayla Adan [Primary Care Provider] - Discharge Problem: Cellulitis Qualifiers: Site of cellulitis: extremity Site of cellulitis of extremity: lower extremity Laterality: unspecified laterality Qualified Code(s): L03.119 - Cellulitis of unspecified part of limb
[2023-12-05] MEDS: PRAMIPEXOLE DIHYDROCHLO 0.5 MG TAB PO STA (00:11)
[2023-12-05] MEDS ORDERED: ACETAMINOPHEN 325 MG TAB PO PRN (00:57)
[2023-12-05] MEDS ORDERED: VANCOMYCIN CONSULT ACTIVE PRN (00:57)
[2023-12-05] MEDS ORDERED: diphenhydrAMINE Capsule 25 MG CAP PO PRN (01:14)
[2023-12-05] MEDS: MoRPHine SULFATE 2 MG/ML CARP IV PRN (01:20)
[2023-12-05] MEDS: ONDANSETRON INJ 2 MG/ML 2 ML VIAL IV PRN (01:20)
[2023-12-05] MEDS: NSS + 20MEQ KCL 20 MEQ/1,000 ML BAG IV SCH (01:45)
[2023-12-05 06:37] LABS: A calco-baum cmplx NotReported Not Detected (NotDetected); Bact fragilis Not Reported Not Detected (NotDetected); Blood Culture Id Panel See PCR Comment (NotDetected); C auris Not Reported Not Detected (NotDetected); Calbicans Not Reported Not Detected (NotDetected); Candida glabrata Not Reported Not Detected (NotDetected); Candida krusei Not Reported Not Detected (NotDetected); Cneoformans/gatti Not Reported Not Detected (NotDetected); Cparapsilosis Not Reported Not Detected (NotDetected); E cloacae compx Not Reported Not Detected (NotDetected); Efaecalis Not Reported Not Detected (NotDetected); Efaecium Not Reported Not Detected (NotDetected); Enterobacterales Not Reported Not Detected (NotDetected); Escherichia coli Not Reported Not Detected (NotDetected); H influenzae Not Reported Not Detected (NotDetected); K aerogenes Not Reported Not Detected (NotDetected); Koxytoca Not Reported Not Detected (NotDetected); Kpneumoniae grp Not Reported Not Detected (NotDetected); Lmonocyt Not Reported Not Detected (NotDetected); N meningitidis Not Reported Not Detected (NotDetected); P aeruginosa Not Reported Not Detected (NotDetected); Proteus spp Not Reported Not Detected (NotDetected); Salmonella spp Not Reported Not Detected (NotDetected); Smarcescens Not Reported Not Detected (NotDetected); Staph lugdunensis Not Reported Not Detected (NotDetected); Staph spp. Not Reported Not Detected (NotDetected); Staphaureus Not Reported Not Detected (NotDetected); Staphepi Not Reported Not Detected (NotDetected); Stenmaltophilia Not Reported Not Detected (NotDetected); Strep agal(GrpB) Not Reported Not Detected (NotDetected); Strep pneum Not Reported Not Detected (NotDetected); Strep pyog (GrpA) Not Reported Not Detected (NotDetected); Strep spp Not Reported DETECTED (NotDetected)
[2023-12-05 07:04] LABS: Streptococcus spp DETECTED (NotDetected)
--- NOTE | 2023-12-05 07:11 | Electrocardiogram Report ---
Test Reason : Blood Pressure : / mmHG Vent. Rate : 110 BPM Atrial Rate : 110 BPM P-R Int : 254 ms QRS Dur : 084 ms QT Int : 376 ms P-R-T Axes : 116 064 -22 degrees QTc Int : 508 ms Sinus tachycardia with 1st degree A-V block T wave abnormality, consider anterolateral ischemia Abnormal ECG When compared with ECG of 23-AUG-2023 12:55, Premature supraventricular complexes are no longer Present Incomplete right bundle branch block is no longer Present Confirmed by Mike Sharp ([id number]) on 12/05/2023 7:11:11 AM Referred By: REFERRED SELF Confirmed By:Saul Sharp
[2023-12-05 07:13] LABS: Appearance Urine Cloudy (Clear); Bacteria Urine Automated Negative (Negative); Bilirubin Urine Negative (Negative); Blood Urine Negative (Negative); Color Urine Dark Yellow; Epithelial Cell Urine Auto >30 /lpf (0-5); Glucose Urine UA Negative (Negative); Ketones Urine Negative (Negative); Leukocyte Esterase Urine 2+ (Negative); Nitrite Urine Negative (Negative); Protein Urine Trace (Negative); Specific Gravity Urine 1.025 (1.000-1.030); Urobilinogen Urine Negative (Negative); WBC Urine Automated >30 /hpf (0-5)
[2023-12-05] MEDS: cefTRIAXone SODIUM 2,000 MG in DEXTROSE 5 % MINI-B 50 ML IV SCH (07:53)
[2023-12-05] MEDS: CeleBREX 200 MG CAP PO SCH (07:59)
[2023-12-05] MEDS: ESCITALOPRAM OXALATE 10 MG TAB PO SCH (07:59)
[2023-12-05] MEDS: CYANOCOBALAMIN (B-12) 500 MCG TABLET PO SCH (07:59)
[2023-12-05] MEDS: HEPARIN SOD 5,000 UNIT/0.5 ML VIAL SQ SCH (07:59)
[2023-12-05] MEDS: FAMOTIDINE 20 MG TAB PO SCH (07:59)
[2023-12-05] MEDS: CHOLECALCIFEROL 25 MCG (1000 UNITS) TAB PO SCH (07:59)
[2023-12-05] MEDS: ZINC SULFATE 220 MG CAPSULE PO SCH (08:00)
[2023-12-05] MEDS ORDERED: VANCOMYCIN HCL 1,250 MG in SODIUM CHLORIDE 0.9% 500 ML IV SCH (08:00)
[2023-12-05] MEDS: PSYLLIUM or GUAR GUM FIBER POWDER PACKET PO SCH (08:00)
[2023-12-05] MEDS: CEROVITE ADV FORMULA TAB PO SCH (08:00)
[2023-12-05] MEDS: traMADol HCL 50 MG TABLET PO SCH (08:06)
[2023-12-05 08:24] LABS: Hematocrit (blood only) 35.2 % (37.0-47.0); Hemoglobin 11.5 g/dl (12.0-16.0); Mean Corpuscular Hemoglobin 28.8 pg (25.0-34.0); Mean Corpuscular Hgb Conc 32.7 g/dL (32.0-36.0); Mean Corpuscular Volume 88.2 fL (80.0-100.0); Mean Platelet Volume 9.1 fL (9.4-12.4); Platelet Count 196 K/uL (130-400); RDW Coefficient of Variation 14.9 % (11.5-14.5); RDW Standard Deviation 48.1 fL (36.4-46.3); Red Blood Count 3.99 M/uL (4.20-5.40); White Blood Count 14.66 K/ul (4.8-10.8)
[2023-12-05 08:35] LABS: Albumin Level 3.6 gm/dl (3.4-5.0); BUN Creatinine Ratio 37.5 (10-20); Creatinine Clr Calc Pharmacy 39.7 ml/min; Est GFR (African American) 55.6 ml/min; Est GFR (Non-African American) 47.9 ml/min; Magnesium 1.9 mg/dl (1.7-2.4); Phosphorus 3.2 mg/dl (2.5-4.9); Potassium 4.8 mmol/L (3.5-5.1)
[2023-12-05] MEDS ORDERED: hydrALAZINE HCL 25 MG TAB PO SCH (09:00)
[2023-12-05 09:20] LABS: Basophils # (auto) 0.04 K/uL (0.00-0.20); Basophils % (auto) 0.3 %; Eosinophils # (auto) 0.04 K/uL (0.00-0.50); Eosinophils % (auto) 0.3 %; Immature Granulocytes # (auto) 0.12 K/uL (0.01-0.20); Immature Granulocytes % (auto) 0.8 %; Lymphocytes # (auto) 0.29 K/uL (1.20-3.40); Monocytes # (auto) 0.44 K/uL (0.11-0.59); Neutrophils # (auto) 13.73 K/uL (1.40-6.50); Neutrophils % (auto) 93.6 %
[2023-12-05] MEDS: VANCOMYCIN HCL 1,000 MG in SODIUM CHLORIDE 0.9% 250 ML IV SCH (10:13)
--- NOTE | 2023-12-05 11:37 | Hospitalist Progress Note ---
Date of Service December 05, 2023 Assessment & Plan (1) Cellulitis of both lower extremities: (2) Chronic venous insufficiency: (3) HTN (hypertension): (4) Idiopathic polyneuropathy: (5) Restless legs syndrome: (6) Edema: (7) Bacteremia: Plan Bacteremia: Blood cultures growing gram-positive cocci in chains, likely strep Patient already on ceftriaxone and vancomycin, will continue both Consult infectious disease Cellulitis of bilateral lower extremities/chronic venous insufficiency- Much worse left greater than right Left lower extremity with floppy bolus edema Will consult wound care, as patient would likely benefit from an Unna boot to prevent rupture and erosion of skin Continue vancomycin IV and ceftriaxone IV begun in the ED Anticipate that patient will need ongoing wound care once she is discharged from the hospital Severe bilateral lower extremity pain, left greater than right- Secondary to idiopathic polyneuropathy and restless leg syndrome Give 1 mg of pramipexole this evening, and resume her usual dose at noon and 6 PM tomorrow Continue tramadol 50 mg p.o. 3 times daily Hypertension- Blood pressure under good control Stop hydralazine, as this should also help with some of the edema Continue lisinopril Hold spironolactone for now Patient looks intravascularly dry, placed on NSS + KCl 20 mEq at 60 mL/h x 1 L Full code DVT prophylaxis heparin Continue hospitalization for now Admission and Anticipated Discharge Date Admission Date: December 04, 2023 Subjective Patient seen and examined, said lower extremity cellulitis is getting better the redness is better as well. Review of Systems Review of Systems: All systems reviewed are negative, apart from the ones contained in the history. Physical Exam Physical Exam: The patient is awake, alert and oriented 3, well developed and well nourished, normocephalic and atraumatic, lying in bed and in no acute distress. HEENT--PERRL, EOMI, mucous membranes and oropharynx mildly dry Neck--supple. No JVD. No bruits. Thyroid normal, trachea midline, no adenopathy. Heart--normal S1 and S2. No murmurs, rubs or gallops. Lungs--clear bilaterally, no respiratory distress, no accessory muscle use. Abdomen--normal bowel sounds and soft. Extremities--no cyanosis or clubbing. No edema. Dermatologic--improvement in area of redness lower extremity Neurologic--cranial nerves II through XII grossly intact. Rheumatologic--normal range of motion. Psychiatric--normal affect. Results & Data Results & Data Vital Signs (Past 12 Hours) Vital Signs Temp Pulse Pulse Resp BP Pulse Ox O2 Del Method 12/05/23 11:25 98.2 F 75 20 122/72 93 Room Air 12/05/23 08:27 Room Air 12/05/23 07:49 97.7 F 76 20 150/80 H 94 Room Air 12/05/23 07:30 77 12/05/23 04:18 99.0 F 81 20 122/74 93 Room Air 12/05/23 01:43 77 12/05/23 01:04 Room Air 12/05/23 01:04 97.9 F 97 H 18 123/66 92 Room Air 12/04/23 23:48 Room Air PG Care Time/CCT Total # of Minutes Spent Total Time Spent with Patient: Total time spent is greater than 50% in coordination of care (as documented) at patient's floor/unit and/or counseling patient: Coding Level of Care Code 76100 SUB INP/OBS CARE 2/35MIN Diagnoses Cellulitis of both lower extremities L03.115; L03.116 Chronic venous insufficiency I87.2 HTN (hypertension) I10 Idiopathic polyneuropathy G60.9 Restless legs syndrome G25.81 Edema R60.9 Bacteremia R78.81 Time Spent (min) 35
--- NOTE | 2023-12-05 11:52 | Pharmacy Report ---
Pharmacy PK ABX Note - Date of Service December 05, 2023 - Assessment and Plan Assessment 88 year old F receiving vancomycin and ceftriaxone for treatment of cellulitis/bacteremia. Blood cultures (+) GPC in chains in 3. Blood biofire (+) Strep spp. Discussed possible de-escalation with hospitalist to ceftriaxone today, however wishes to continue vanc at this time. ID consulted. Day #2 of antimicrobial therapy. Plan Vancomycin * Loading dose: 1250 mg IV x 1 * Maintenance dose: 1000 mg IV every 24 hours * Regimen is predicted to achieve target AUC/JERRICA of 400-600 mg/L.hr * Will obtain a level tomorrow AM. Pharmacy will continue to follow and will adjust dose/frequency as necessary. Thank you. Pharmacy has transitioned to AUC monitoring for vancomycin. AUC/JERRICA is the preferred PK/PD target and is associated with decreased risk of nephrotoxicity compared to traditional trough targets.
[2023-12-05] MEDS: PRAMIPEXOLE DIHYDROCHLO 0.5 MG TAB PO SCH ×2 (13:19→18:36)
[2023-12-06 05:46] LABS: Hematocrit (blood only) 31.1 % (37.0-47.0); Hemoglobin 10.5 g/dl (12.0-16.0); Mean Corpuscular Hemoglobin 29.7 pg (25.0-34.0); Mean Corpuscular Hgb Conc 33.8 g/dL (32.0-36.0); Mean Corpuscular Volume 87.9 fL (80.0-100.0); Mean Platelet Volume 8.7 fL (9.4-12.4); Platelet Count 169 K/uL (130-400); RDW Standard Deviation 48.9 fL (36.4-46.3); Red Blood Count 3.54 M/uL (4.20-5.40); White Blood Count 7.57 K/ul (4.8-10.8)
[2023-12-06 06:05] LABS: Albumin Level 3.1 gm/dl (3.4-5.0); BUN Creatinine Ratio 39.2 (10-20); Calcium 8.9 mg/dl (8.6-10.3); Creatinine Clr Calc Pharmacy 52.2 ml/min; Est GFR (African American) 77.5 ml/min; Est GFR (Non-African American) 66.8 ml/min; Phosphorus 2.3 mg/dl (2.5-4.9); Potassium 4.3 mmol/L (3.5-5.1)
[2023-12-06 06:35] LABS: Basophils # (auto) 0.02 K/uL (0.00-0.20); Basophils % (auto) 0.3 %; Echinocytes 1+; Eosinophils # (auto) 0.05 K/uL (0.00-0.50); Eosinophils % (auto) 0.7 %; Immature Granulocytes # (auto) 0.07 K/uL (0.01-0.20); Immature Granulocytes % (auto) 0.9 %; Lymphocytes # (auto) 0.33 K/uL (1.20-3.40); Lymphocytes % (auto) 4.4 %; Monocytes # (auto) 0.25 K/uL (0.11-0.59); Monocytes % (auto) 3.3 %; Neutrophils # (auto) 6.85 K/uL (1.40-6.50); Neutrophils % (auto) 90.4 %
[2023-12-06] MEDS: VANCOMYCIN HCL 1,000 MG in SODIUM CHLORIDE 0.9% 250 ML IV SCH (09:30)
[2023-12-06] MEDS: SODIUM CHLORIDE 1 GM TABLET PO SCH (09:31)
--- NOTE | 2023-12-06 10:41 | Pharmacy Report ---
Pharmacy PK ABX Note - Date of Service December 06, 2023 - Assessment and Plan Assessment 12/06: Continues on vanc + rocephin. Day # 3 vancomycin. Blood cultures (+) Group C strep in 3/. Renal function stable. 88 year old F receiving vancomycin and ceftriaxone for treatment of c ellulitis/bacteremia. Blood cultures (+) GPC in chains in 3. Blood biofire (+) Strep spp. Discussed possible de-escalation with hospitalist to ceftriaxone today, however wishes to continue vanc at this time. ID consulted. Day #2 of antimicrobial therapy. Plan Vancomycin * Current regimen: 1gm IV q24h * Random, non-steady state level this AM (~19hr level), 6.9mcg/mL - predicted to achieve ssAUC 326mg/L.hr- subtherapeutic. * Will supplement with an additional 500mg dose now and then begin 1500mg IV q24h tomorrow AM. Predicted to achieve ssAUC 461 mg/L.hr with a 7% risk of toxicity. * Will obtain a repeat level in ~ 48h. Pharmacy will continue to follow and will adjust dose/frequency as necessary. Thank you. Pharmacy has transitioned to AUC monitoring for vancomycin. AUC/JERRICA is the preferred PK/PD target and is associated with decreased risk of nephrotoxicity compared to traditional trough targets.
--- NOTE | 2023-12-06 10:59 | Hospitalist Progress Note ---
Date of Service December 06, 2023 Assessment & Plan (1) Cellulitis of both lower extremities: (2) Chronic venous insufficiency: (3) HTN (hypertension): (4) Idiopathic polyneuropathy: (5) Restless legs syndrome: (6) Edema: (7) Bacteremia: Plan Bacteremia: 3 out of 4 bottles growing group C beta strep Will discontinue vancomycin Continue ceftriaxone for now Consult infectious disease Cellulitis of bilateral lower extremities/chronic venous insufficiency- Left worse than right however both getting better Will consult wound care, as patient would likely benefit from an Unna boot to prevent rupture and erosion of skin Continue IV ceftriaxone Anticipate that patient will need ongoing wound care once she is discharged from the hospital Severe bilateral lower extremity pain, left greater than right- Secondary to idiopathic polyneuropathy and restless leg syndrome Continue home medications. Continue tramadol 50 mg p.o. 3 times daily Hypertension- Blood pressure under fair control Initially hydralazine was held Will resume. Full code DVT prophylaxis heparin Continue hospitalization for now Admission and Anticipated Discharge Date Admission Date: December 04, 2023 Subjective Patient seen and examined, said lower extremity cellulitis is getting better the redness is better as well. Review of Systems Review of Systems: All systems reviewed are negative, apart from the ones contained in the history. Physical Exam Physical Exam: The patient is awake, alert and oriented 3, well developed and well nourished, normocephalic and atraumatic, lying in bed and in no acute distress. HEENT--PERRL, EOMI, mucous membranes and oropharynx mildly dry Neck--supple. No JVD. No bruits. Thyroid normal, trachea midline, no adenopathy. Heart--normal S1 and S2. No murmurs, rubs or gallops. Lungs--clear bilaterally, no respiratory distress, no accessory muscle use. Abdomen--normal bowel sounds and soft. Extremities--no cyanosis or clubbing. No edema. Dermatologic--improvement in area of redness lower extremity Neurologic--cranial nerves II through XII grossly intact. Rheumatologic--normal range of motion. Psychiatric--normal affect. Results & Data Results & Data Vital Signs (Past 12 Hours) Vital Signs Temp Pulse Pulse Resp BP Pulse Ox O2 Del Method 12/06/23 08:00 70 12/06/23 08:00 Room Air 12/06/23 07:29 98.2 F 71 20 159/92 H 94 Room Air 12/06/23 03:09 98.1 F 71 18 134/70 94 Room Air PG Care Time/CCT Total # of Minutes Spent Total Time Spent with Patient: Total time spent is greater than 50% in coordination of care (as documented) at patient's floor/unit and/or counseling patient: Coding Level of Care Code 76415 SUB INP/OBS CARE 2/35MIN Diagnoses Cellulitis of both lower extremities L03.115; L03.116 Chronic venous insufficiency I87.2 HTN (hypertension) I10 Idiopathic polyneuropathy G60.9 Restless legs syndrome G25.81 Edema R60.9 Bacteremia R78.81 Time Spent (min) 35
--- NOTE | 2023-12-06 13:30 | Electrocardiogram Report ---
Test Reason : Blood Pressure : / mmHG Vent. Rate : 074 BPM Atrial Rate : 074 BPM P-R Int : 248 ms QRS Dur : 106 ms QT Int : 406 ms P-R-T Axes : 007 058 -03 degrees QTc Int : 450 ms Sinus rhythm with 1st degree A-V block Low voltage QRS Incomplete right bundle branch block Possible Inferior infarct (cited on or before 05-DEC-2023) T wave abnormality, consider anterior ischemia Abnormal ECG When compared with ECG of 04-DEC-2023 18:59, Vent. rate has decreased BY 36 BPM Incomplete right bundle branch block is now Present Confirmed by Reji Álvarez ([id number]) on 12/06/2023 1:30:26 PM Referred By: REFERRED SELF Confirmed By:Reji Álvarez
[2023-12-06] MEDS: VANCOMYCIN HCL 500 MG in NSS 100mL IV ONE (14:50)
[2023-12-07 06:01] LABS: Basophils # (auto) 0.02 K/uL (0.00-0.20); Basophils % (auto) 0.4 %; Eosinophils # (auto) 0.22 K/uL (0.00-0.50); Eosinophils % (auto) 4.2 %; Hematocrit (blood only) 32.1 % (37.0-47.0); Hemoglobin 10.5 g/dl (12.0-16.0); Immature Granulocytes # (auto) 0.02 K/uL (0.01-0.20); Immature Granulocytes % (auto) 0.4 %; Lymphocytes # (auto) 0.67 K/uL (1.20-3.40); Lymphocytes % (auto) 12.7 %; Mean Corpuscular Hemoglobin 28.8 pg (25.0-34.0); Mean Corpuscular Hgb Conc 32.7 g/dL (32.0-36.0); Mean Corpuscular Volume 87.9 fL (80.0-100.0); Mean Platelet Volume 9.2 fL (9.4-12.4); Monocytes # (auto) 0.24 K/uL (0.11-0.59); Monocytes % (auto) 4.5 %; Neutrophils # (auto) 4.12 K/uL (1.40-6.50); Neutrophils % (auto) 77.8 %; Platelet Count 182 K/uL (130-400); RDW Coefficient of Variation 14.6 % (11.5-14.5); Red Blood Count 3.65 M/uL (4.20-5.40); White Blood Count 5.29 K/ul (4.8-10.8)
[2023-12-07 06:13] LABS: Albumin Level 3.2 gm/dl (3.4-5.0); BUN Creatinine Ratio 31.3 (10-20); Creatinine Clr Calc Pharmacy 51.1 ml/min; Magnesium 1.9 mg/dl (1.7-2.4); Phosphorus 2.3 mg/dl (2.5-4.9); Potassium 4.4 mmol/L (3.5-5.1)
--- NOTE | 2023-12-07 09:44 | Infectious Disease Consult ---
Date of Consultation December 07, 2023 Assessment & Plan (1) Bacteremia: (2) Cellulitis: Plan 88yo F with h/o cellulitis of bl LEs with recent admission 08/2023 for RLE cellulitis (dcd on cefadroxil and doxy x 7-10d), mitral regurgitation, polyarthritis, restless leg syndrome, idiopathic polyneuropathy, HTN, left rotator cuff arthropathy with plans for shoulder replacement surgery in January who presented on 12/04 with worsening lower extremity pain, redness and swelling along with fevers. She reported L>R pain in her legs. Here she has been afebrile, vss. Initial WBC 15.92>>7.57, Cr 0.98, LFT wnl. Lactate normal. Trop elevated. PCT 3.93. UA > 30 WBC, > 30 epith cells. BCX with Strep. CXR neg. CTH neg. Bl LE doppler normal. She was admitted for bl LE cellulitis L>R. ID consulted for Strep bacteremia. Patient with LLE cellulitis. I agree with current antibiotics, CTX should adequately cover Strep. Due to the propensity of Group C Strep to cause endocarditis, and with her h/o valvular disease, I would advise getting an echocardiogram. Repeat BCx were sent this morning to ensure clearance. If no persistent bacteremia, along with no vegetations on TTE and no other sites of distant infection, then she can complete a 2 week course of abx, which can be done with PO on discharge. # Group C Strep bacteremia # LLE cellulitis # H/o mitral regurgitation - obtain TTE - repeat BCX in process from today - continue on CTX 2g IV daily - monitor for distant sites of infection (back pain/spinal tenderness, knee pain/swelling/redness) if present, inform ID - if her LLE cellulitis gets worse on monotherapy or if fails to improve, we may need to consider adding back empiric MRSA coverage ID will continue to follow. If questions or concerns, contact Infectious Disease Call Center . Georgina Jarquin MD [facility], Division of Infectious Diseases [facility]: [phone] Consultation Information Consultation was provided via telemedicine using two-way real-time interactive telecommunication between the patient and the telemedicine provider. For the duration of the visit, the provider was performing the assessment from a different facility than the patient. This includesuse of bluetooth stethoscope forauscultationperformed by the telepresenter that the telemedicine provider can hear if described in the physical exam. Marketing Operations Coordinator contact information: Please call [facility] Call Center . (Phone Number For Physician Use Only) After establishing a telemedicine visit, patient was: Patient/authorized rep acknowledged consent and understanding and Gave permission to continue telehealth session Time Spent with Patient: Subsequent => 55 min History of Present Illness Reason for Consultation: positive blood culture Attending Physician: Jamal Terrell MD History of Present Illness 88yo F with h/o cellulitis of bl LEs with recent admission 08/2023 for RLE cellulitis (dcd on cefadroxil and doxy x 7-10d), mitral regurgitation, polya rthritis, restless leg syndrome, idiopathic polyneuropathy, HTN, left rotator cuff arthropathy with plans for shoulder replacement surgery in January who presented on 12/04 with worsening lower extremity pain, redness and swelling along with fevers. She reported L>R pain in her legs, which she associated to her RLS. Here she has been afebrile, vss. Initial WBC 15.92>>7.57, Cr 0.98, LFT wnl. Lactate normal. Trop elevated. PCT 3.93. UA > 30 WBC, > 30 epith cells. BCX with Strep. CXR neg. CTH neg. Bl LE doppler normal. She was admitted for bl LE cellulitis L>R. ID consulted for Strep bacteremia. On evaluation, patient reports that she felt the symptoms had started around Thursday-Thursday. She note that her leg has some chronic changes from August. She says since being in the hospital, the leg is unchanged, though her feels that its worse since over the weekend. No open wounds or drainage. No chest pain, shortness of breath, nausea, vomiting, diarrhea. Antibiotics: Vanc 12/04-12/06 CTX 12/04- Allergies Allergy/AdvReac Type Severity Reaction Status Date / Time No Known Allergies Allergy Verified 11/24/23 14:40 Home Medications Medication Instructions Recorded Confirmed Type cyanocobalamin (vitamin B-12) 500 500 mcg PO QAM 05/01/20 12/04/23 History mcg tablet triamcinolone acetonide 0.1 % 1 applic topical DAILY PRN Skin 09/25/20 12/04/23 History topical cream Irritation cholecalciferol (vitamin D3) 50 2,000 unit PO QAM 02/11/21 12/04/23 History mcg (2,000 unit) capsule losartan 100 mg tablet 100 mg PO QAM 02/11/21 12/04/23 History zinc gluconate 50 mg tablet 50 mg PO QAM 02/11/21 12/04/23 History diphenhydramine HCl 25 mg tablet 25 mg PO HS PRN Sleep 07/16/21 12/04/23 History (Benadryl Allergy) ondansetron 4 mg disintegrating 4 mg PO Q6H PRN nausea and 09/10/22 12/04/23 Rx tablet vomiting #14 tabs escitalopram oxalate 10 mg tablet 10 mg PO DAILY Anxiety 09/24/22 12/04/23 History aspirin 325 mg tablet 325 mg PO BID PRN Pain 08/18/23 12/04/23 History desonide 0.05 % topical cream 1 applic topical BID PRN Skin 08/18/23 12/04/23 History Irritation diclofenac sodium 1 % topical gel 2 g topical QID PRN Pain 08/18/23 12/04/23 History hydralazine 25 mg tablet 25 mg PO TID 08/18/23 12/04/23 History [id number] 4 mg-folic acid 1 tab PO QAM 08/18/23 12/04/23 History 200 mcg-vit K 25 mcg-lutein tablet (Centrum Minis Women 50 Plus) psyllium husk 0.52 gram capsule 1.04 g PO DAILY 08/18/23 12/04/23 History pramipexole 0.5 mg tablet 0.5 mg PO .COMPLEX 30 days #150 10/26/23 12/04/23 Rx tabs tramadol 50 mg tablet 50 mg PO TID 30 days #90 tabs 11/16/23 12/04/23 Rx famotidine 10 mg tablet 20 mg PO DAILY PRN 11/20/23 12/04/23 History HEARTBURN/INDIGESTION spironolactone 25 mg tablet 50 mg PO DAILY 11/20/23 12/04/23 History celecoxib 200 mg capsule (Celebrex) 200 mg PO BID #60 caps 12/01/23 12/04/23 Rx Patient History Medical History Acute hyponatremia Dizziness Symptomatic bradycardia Impacted cerumen, bilateral Eczema of lower extremity Exertional dyspnea Frequency of urination and polyuria History of colon cancer, stage I HTN (hypertension) Surgical History History of cardiac cath (2013) History of tubal ligation (1970) History of shoulder surgery History of knee replacement (2012) History of colonoscopy History of cataract surgery (2009) left History of appendectomy (2012) Tubal ligation status History of colon surgery History of right shoulder replacement Total knee replacement status Family History Father Hypertension Cardiac arrest CHF (congestive heart failure) Mother Hypertension Cardiac arrest Cardiac disorder Stroke Sister Hypertension Stroke Aunt Stomach cancer Denies family history of Ovarian cancer Prostate cancer Myocardial infarction Breast cancer Bleeding disorder Colorectal cancer Social History Smoking Status: Never smoker Second Hand Exposure: No; Do You Dip or Chew Tobacco: No; Hx Alcohol Use: No Hx Substance Use: No Preferred Language: Wolof Communication Ability: Effective Visual Impairment: No Limitations Hearing Ability: Hard of Hearing Explosives Detonator Required: No Beliefs That Will Affect Care: None marital status: Current Living Situation: Spouse Current Living Situation Comment: living with current occupational status: retired Other Information That Helps Us Care for You: No Feels Safe at Home: Yes Safety Concerns: Feels Safe At This Time Childhood Exposure to Second-Hand Smoke: Yes Dental Care, Regularly: Yes Physical Activity Frequency: Does not Exercise Seatbelt Use: always Sunscreen Use: No Assistive Devices: Cane Review of System 10-point review of systems reviewed and are negative except for as above. Physical Exam Physical Exam: General: Awake, alert, no acute distress HEENT: NC/AT, EOMI, mmm Neck: supple Lungs: respirations non-labored Heart: nl peripheral perfusion Abdomen: soft, NT/ND Ext: + left LE edema with redness and tenderness up to below knee, RLE appears ok Skin: as above Neuro: O x 3 Results & Data Vital Signs (Past 12 Hours) Vital Signs Temp Pulse Pulse Resp BP Pulse Ox O2 Del Method 12/07/23 07:32 36.8 C 81 18 161/85 H 95 Room Air 12/07/23 03:11 36.3 C L 73 18 157/90 H 94 Room Air 12/06/23 23:06 36.6 C 68 18 135/82 94 Room Air 12/06/23 21:58 67 Laboratory Results labs reviewed Diagnostic Findings imaging reviewed (2) Cellulitis Laterality: unspecified laterality Site of cellulitis: extremity Site of cellulitis of extremity: lower extremity Qualified Code(s): L03.119 - Cellulitis of unspecified part of limb
[2023-12-07] MEDS ORDERED: VANCOMYCIN HCL 1,500 MG in SODIUM CHLORIDE 0.9% 500 ML IV SCH (10:00)
--- NOTE | 2023-12-07 11:44 | Hospitalist Progress Note ---
Date of Service December 07, 2023 Assessment & Plan (1) Cellulitis of both lower extremities: (2) Chronic venous insufficiency: (3) HTN (hypertension): (4) Idiopathic polyneuropathy: (5) Restless legs syndrome: (6) Edema: (7) Bacteremia: Plan Bacteremia: 3 out of 4 bottles growing group C beta strep Will discontinue vancomycin Continue ceftriaxone for now Obtain 2D echo to rule out endocarditis Appreciate infectious disease recommendations Cellulitis of bilateral lower extremities/chronic venous insufficiency- Left worse than right however both getting better Will consult wound care, as patient would likely benefit from an Unna boot to prevent rupture and erosion of skin Continue IV ceftriaxone Anticipate that patient will need ongoing wound care once she is discharged from the hospital Severe bilateral lower extremity pain, left greater than right- Secondary to idiopathic polyneuropathy and restless leg syndrome Continue home medications. Continue tramadol 50 mg p.o. 3 times daily Hypertension- Blood pressure under fair control Initially hydralazine was held Will resume. Full code DVT prophylaxis heparin Continue hospitalization for now Admission and Anticipated Discharge Date Admission Date: December 04, 2023 Subjective Patient seen and examined, said lower extremity cellulitis is getting better the redness is better as well, however the left leg is still worse than the right Review of Systems Review of Systems: All systems reviewed are negative, apart from the ones contained in the history. Physical Exam Physical Exam: The patient is awake, alert and oriented 3, well developed and well nourished, normocephalic and atraumatic, lying in bed and in no acute distress. HEENT--PERRL, EOMI, mucous membranes and oropharynx mildly dry Neck--supple. No JVD. No bruits. Thyroid normal, trachea midline, no adenopathy. Heart--normal S1 and S2. No murmurs, rubs or gallops. Lungs--clear bilaterally, no respiratory distress, no accessory muscle use. Abdomen--normal bowel sounds and soft. Extremities--no cyanosis or clubbing. No edema. Dermatologic--improvement in area of redness lower extremity Neurologic--cranial nerves II through XII grossly intact. Rheumatologic--normal range of motion. Psychiatric--normal affect. Results & Data Results & Data Vital Signs (Past 12 Hours) Vital Signs Temp Pulse Resp BP Pulse Ox O2 Del Method 12/07/23 10:44 97.5 F L 75 18 140/77 97 Room Air 12/07/23 07:32 98.2 F 81 18 161/85 H 95 Room Air 12/07/23 03:11 97.3 F L 73 18 157/90 H 94 Room Air PG Care Time/CCT Total # of Minutes Spent Total Time Spent with Patient: Total time spent is greater than 50% in coordination of care (as documented) at patient's floor/unit and/or counseling patient: Coding Level of Care Code 74219 SUB INP/OBS CARE 2/35MIN Diagnoses Cellulitis of both lower extremities L03.115; L03.116 Chronic venous insufficiency I87.2 HTN (hypertension) I10 Idiopathic polyneuropathy G60.9 Restless legs syndrome G25.81 Edema R60.9 Bacteremia R78.81 Time Spent (min) 35
--- NOTE | 2023-12-07 14:58 | XCELERA ---
[id number]
[2023-12-07] MEDS: rOPINIRole HCL 0.25 MG TABLET PO SCH (20:53)
[2023-12-08 07:38] LABS: Hematocrit (blood only) 34.1 % (37.0-47.0); Hemoglobin 11.2 g/dl (12.0-16.0); Mean Corpuscular Hemoglobin 28.6 pg (25.0-34.0); Mean Corpuscular Hgb Conc 32.8 g/dL (32.0-36.0); Mean Corpuscular Volume 87.2 fL (80.0-100.0); Mean Platelet Volume 9.3 fL (9.4-12.4); Platelet Count 228 K/uL (130-400); RDW Coefficient of Variation 14.7 % (11.5-14.5); RDW Standard Deviation 47.4 fL (36.4-46.3); Red Blood Count 3.91 M/uL (4.20-5.40); White Blood Count 6.15 K/ul (4.8-10.8)
[2023-12-08] MEDS ORDERED: VANCOMYCIN CONSULT ACTIVE PRN (09:12)
--- NOTE | 2023-12-08 09:14 | Infectious Disease Consult ---
Date of Consultation December 08, 2023 Assessment & Plan (1) Bacteremia: (2) Cellulitis: Consultation Information Consultation was provided via telemedicine using two-way real-time interactive telecommunication between the patient and the telemedicine provider. For the duration of the visit, the provider was performing the assessment from a different facility than the patient. This includesuse of bluetooth stethoscope forauscultationperformed by the telepresenter that the telemedicine provider can hear if described in the physical exam. Internal Medicine Hospitalist contact information: Please call [facility] Call Center . (Phone Number For Physician Use Only) History of Present Illness Attending Physician: Jamal Terrell MD Allergies Allergy/AdvReac Type Severity Reaction Status Date / Time No Known Allergies Allergy Verified 11/24/23 14:40 Home Medications Medication Instructions Recorded Confirmed Type cyanocobalamin (vitamin B-12) 500 500 mcg PO QAM 05/01/20 12/04/23 History mcg tablet triamcinolone acetonide 0.1 % 1 applic topical DAILY PRN Skin 09/25/20 12/04/23 History topical cream Irritation cholecalciferol (vitamin D3) 50 2,000 unit PO QAM 02/11/21 12/04/23 History mcg (2,000 unit) capsule losartan 100 mg tablet 100 mg PO QAM 02/11/21 12/04/23 History zinc gluconate 50 mg tablet 50 mg PO QAM 02/11/21 12/04/23 History diphenhydramine HCl 25 mg tablet 25 mg PO HS PRN Sleep 07/16/21 12/04/23 History (Benadryl Allergy) ondansetron 4 mg disintegrating 4 mg PO Q6H PRN nausea and 09/10/22 12/04/23 Rx tablet vomiting #14 tabs escitalopram oxalate 10 mg tablet 10 mg PO DAILY Anxiety 09/24/22 12/04/23 History aspirin 325 mg tablet 325 mg PO BID PRN Pain 08/18/23 12/04/23 History desonide 0.05 % topical cream 1 applic topical BID PRN Skin 08/18/23 12/04/23 History Irritation diclofenac sodium 1 % topical gel 2 g topical QID PRN Pain 08/18/23 12/04/23 History hydralazine 25 mg tablet 25 mg PO TID 08/18/23 12/04/23 History [id number]-[id number] 4 mg-folic acid 1 tab PO QAM 08/18/23 12/04/23 History 200 mcg-vit K 25 mcg-lutein tablet (Centrum Minis Women 50 Plus) psyllium husk 0.52 gram capsule 1.04 g PO DAILY 08/18/23 12/04/23 History pramipexole 0.5 mg tablet 0.5 mg PO .COMPLEX 30 days #150 10/26/23 12/04/23 Rx tabs tramadol 50 mg tablet 50 mg PO TID 30 days #90 tabs 11/16/23 12/04/23 Rx famotidine 10 mg tablet 20 mg PO DAILY PRN 11/20/23 12/04/23 History HEARTBURN/INDIGESTION spironolactone 25 mg tablet 50 mg PO DAILY 11/20/23 12/04/23 History celecoxib 200 mg capsule (Celebrex) 200 mg PO BID #60 caps 12/01/23 12/04/23 Rx Patient History Medical History Acute hyponatremia Dizziness Symptomatic bradycardia Impacted cerumen, bilateral Eczema of lower extremity Exertional dyspnea Frequency of urination and polyuria History of colon cancer, stage I HTN (hypertension) Surgical History History of cardiac cath (2013) History of tubal ligation (1970) History of shoulder surgery History of knee replacement (2012) History of colonoscopy History of cataract surgery (2009) left History of appendectomy (2012) Tubal ligation status History of colon surgery History of right shoulder replacement Total knee replacement status Family History Father Hypertension Cardiac arrest CHF (congestive heart failure) Mother Hypertension Cardiac arrest Cardiac disorder Stroke Sister Hypertension Stroke Aunt Stomach cancer Denies family history of Ovarian cancer Prostate cancer Myocardial infarction Breast cancer Bleeding disorder Colorectal cancer Social History Smoking Status: Never smoker Second Hand Exposure: No; Do You Dip or Chew Tobacco: No; Hx Alcohol Use: No Hx Substance Use: No Preferred Language: Sammarinese Communication Ability: Effective Visual Impairment: No Limitations Hearing Ability: Hard of Hearing Promotion Producer Required: No Beliefs That Will Affect Care: None marital status: Current Living Situation: Spouse Current Living Situation Comment: living with current occupational status: retired Feels Safe at Home: Yes Childhood Exposure to Second-Hand Smoke: Yes Dental Care, Regularly: Yes Physical Activity Frequency: Does not Exercise Seatbelt Use: always Sunscreen Use: No Assistive Devices: Cane and Walker Results & Data Vital Signs (Past 12 Hours) Vital Signs Temp Pulse Pulse Resp BP BP Pulse Ox 12/08/23 07:46 37 C 81 18 160/85 H 95 12/08/23 07:29 76 12/08/23 03:35 36.8 C 98 H 18 96/61 L 95 12/08/23 00:12 74 12/07/23 23:50 36.7 C 77 16 159/83 H 93 O2 Del Method 12/08/23 07:46 Room Air 12/08/23 07:29 12/08/23 03:35 Room Air 12/08/23 00:12 12/07/23 23:50 Room Air (2) Cellulitis Laterality: unspecified laterality Site of cellulitis: extremity Site of cellulitis of extremity: lower extremity Qualified Code(s): L03.119 - Cellulitis of unspecified part of limb
--- NOTE | 2023-12-08 09:28 | Infectious Disease Progress Nt ---
Date of Service December 08, 2023 Assessment & Plan (1) Bacteremia: (2) Cellulitis: Plan 88yo F with h/o cellulitis of bl LEs with recent admission 08/2023 for RLE cellulitis (dcd on cefadroxil and doxy x 7-10d), mitral regurgitation, polyarthritis, restless leg syndrome, idiopathic polyneuropathy, HTN, left rotator cuff arthropathy with plans for shoulder replacement surgery in January who presented on 12/04 with worsening lower extremity pain, redness and swelling along with fevers. She reported L>R pain in her legs. Here she has been afebrile, vss. Initial WBC 15.92>>7.57, Cr 0.98, LFT wnl. Lactate normal. Trop elevated. PCT 3.93. UA > 30 WBC, > 30 epith cells. BCX with Strep. CXR neg. CTH neg. Bl LE doppler normal. She was admitted for bl LE cellulitis L>R. ID consulted for Strep bacteremia. She was getting vanc/CTX, narrowed to CTX on 12/07. TTE negative for valvular vegetations. LLE worse today. Given that her LLE feels worse today and appears more red, I restarted vancomycin. Will wait for repeat BCX and see if there is any improvement in cellulitis with MRSA coverage added back. # Group C Strep bacteremia # LLE cellulitis # H/o mitral regurgitation - Ranjana added back vancomycin given worsening LLE - f/u BCx from 12/07, so far negative - continue on CTX 2g IV daily ID will continue to follow. If questions or concerns, contact Infectious Disease Call Center . Georgina Jarquin MD [facility], Division of Infectious Diseases IDConnect: [phone] Admission and Anticipated Discharge Date Admission Date: December 04, 2023 Subjective Subsequent visit was provided via telemedicine using two-way real-time interactive telecommunication between the patient and the telemedicine provider. For the duration of the visit, the provider was performing the assessment from a different facility than the patient. This includesuse of bluetooth stethoscope forauscultationperformed by the telepresenter that the telemedici ne provider can hear if described in the physical exam. Taker Off contact information: Please call ID Connect Call Center . (Phone Number For Physician Use Only) After establishing a telemedicine visit, patient was: Patient/authorized rep acknowledged consent and understanding and Gave permission to continue teleheal th session Time Spent with Patient: Subsequent => 35 min Patient reports feeling more discomfort in her left leg, says it feels like her "RLS". No joint pains or back pain. Physical Exam Physical Exam: General: Awake, alert, no acute distress HEENT: NC/AT, EOMI, mmm Neck: supple Lungs: respirations non-labored Heart: nl peripheral perfusion Abdomen: soft, NT/ND Ext: LLE with area that is open with serous drainage, bright red lower leg, knees ok Results & Data Vital Signs (Past 12 Hours) Vital Signs Temp Pulse Pulse Resp BP BP Pulse Ox 12/08/23 07:46 37 C 81 18 160/85 H 95 12/08/23 07:29 76 12/08/23 03:35 36.8 C 98 H 18 96/61 L 95 12/08/23 00:12 74 12/07/23 23:50 36.7 C 77 16 159/83 H 93 O2 Del Method 12/08/23 07:46 Room Air 12/08/23 07:29 12/08/23 03:35 Room Air 12/08/23 00:12 12/07/23 23:50 Room Air (2) Cellulitis Laterality: unspecified laterality Site of cellulitis: extremity Site of cellulitis of extremity: lower extremity Qualified Code(s): L03.119 - Cellulitis of unspecified part of limb
--- NOTE | 2023-12-08 10:01 | Pharmacy Report ---
Pharmacy PK ABX Note - Date of Service December 08, 2023 - Assessment and Plan Assessment 12/08: Vancomycin had been d/c 12/06 by provider, however restarted this morning due to worsening cellulitis. Previous levels suggestive of dosing 1500 mg iv q 24 hours appropriate, reasonable to resume prior dosing this AM 12/06: Continues on vanc + rocephin. Day # 3 vancomycin. Blood cultures (+) Group C strep in 3/. Renal function stable. 88 year old F receiving vancomycin and ceftriaxone for treatment of cellulitis/bacteremia. Blood cultures (+) GPC in chains in 3. Blood biofire (+) Strep spp. Discussed possible de-escalation with hospitalist to ceftriaxone today, however wishes to continue vanc at this time. ID consulted. Day #2 of antimicrobial therapy. Plan Vancomycin * Resume prior dosing - vancomycin 1500 mg iv q 24 hours * Dosing estimated to achieve goal AUC/JERRICA 400-600 * Will plan to collect random level in next 2-3 days or sooner if renal function changes. Pharmacy will continue to follow and will adjust dose/frequency as necessary. Thank you. Pharmacy has transitioned to AUC monitoring for vancomycin. AUC/JERRICA is the preferred PK/PD target and is associated with decreased risk of nephrotoxicity compared to traditional trough targets.
[2023-12-08] MEDS: VANCOMYCIN HCL 1,500 MG in SODIUM CHLORIDE 0.9% 500 ML IV SCH (11:39)
[2023-12-08] MEDS: FUROSEMIDE 40 MG/4 ML VIAL IV SCH (11:39)
--- NOTE | 2023-12-08 13:32 | Hospitalist Progress Note ---
Date of Service December 08, 2023 Assessment & Plan (1) Cellulitis of both lower extremities: (2) Chronic venous insufficiency: (3) HTN (hypertension): (4) Idiopathic polyneuropathy: (5) Restless legs syndrome: (6) Edema: (7) Bacteremia: Plan Bacteremia: 3 out of 4 bottles growing group C beta strep Initially vancomycin was discontinued however per ID due to nonimprovement on the cellulitis Vanco be reintroduced Continue ceftriaxone for now with vancomycin 2D echo did not show any evidence of vegetations Appreciate infectious disease recommendations Cellulitis of bilateral lower extremities/chronic venous insufficiency- Left worse than right however both getting better Will continue wound care Vancomycin has been reintroduced Will also introduce IV Lasix 40 mg twice daily to help with the swelling Anticipate that patient will need ongoing wound care once she is discharged from the hospital Severe bilateral lower extremity pain, left greater than right- Secondary to idiopathic polyneuropathy and restless leg syndrome Continue home medications. Continue tramadol 50 mg p.o. 3 times daily Hypertension- Blood pressure under fair control Initially hydralazine was held Will resume. Full code DVT prophylaxis heparin Continue hospitalization for now Admission and Anticipated Discharge Date Admission Date: December 04, 2023 Subjective Patient seen and examined, by the bedside, says she continues to feel bad, says she does not feel as if the leg is improving. Review of Systems Review of Systems: All systems reviewed are negative, apart from the ones contained in the history. Physical Exam Physical Exam: The patient is awake, alert and oriented 3, well developed and well nourished, normocephalic and atraumatic, lying in bed and in no acute distress. HEENT--PERRL, EOMI, mucous membranes and oropharynx mildly dry Neck--supple. No JVD. No bruits. Thyroid normal, trachea midline, no adenopathy. Heart--normal S1 and S2. No murmurs, rubs or gallops. Lungs--clear bilaterally, no respiratory distress, no accessory muscle use. Abdomen--normal bowel sounds and soft. Extremities--no cyanosis or clubbing. No edema. Dermatologic--improvement in area of redness lower extremity Neurologic--cranial nerves II through XII grossly intact. Rheumatologic--normal range of motion. Psychiatric--normal affect. Results & Data Results & Data Vital Signs (Past 12 Hours) Vital Signs Temp Pulse Pulse Resp BP BP Pulse Ox 12/08/23 11:26 97.9 F 79 18 154/84 H 96 12/08/23 07:46 98.6 F 81 18 160/85 H 95 12/08/23 07:29 76 12/08/23 03:35 98.2 F 98 H 18 96/61 L 95 O2 Del Method 12/08/23 11:26 Room Air 12/08/23 07:46 Room Air 12/08/23 07:29 12/08/23 03:35 Room Air PG Care Time/CCT Total # of Minutes Spent Total Time Spent with Patient: Total time spent is greater than 50% in coordination of care (as documented) at patient's floor/unit and/or counseling patient: Coding Level of Care Code 37293 SUB INP/OBS CARE 235MIN Diagnoses Cellulitis of both lower extremities L03.115; L03.116 Chronic venous insufficiency I87.2 HTN (hypertension) I10 Idiopathic polyneuropathy G60.9 Restless legs syndrome G25.81 Edema R60.9 Bacteremia R78.81 Time Spent (min) 35
[2023-12-08] MEDS: FUROSEMIDE 40 MG/4 ML VIAL IV ONE (22:08)
[2023-12-09 07:18] LABS: Calcium 9.7 mg/dl (8.6-10.3); Creatinine Clr Calc Pharmacy 53.2 ml/min; Est GFR (African American) 81.2 ml/min; Potassium 4.5 mmol/L (3.5-5.1)
[2023-12-09] MEDS: FUROSEMIDE 40 MG/4 ML VIAL IV SCH (07:51)
--- NOTE | 2023-12-09 09:21 | Infectious Disease Progress Nt ---
Date of Service December 09, 2023 Assessment & Plan (1) Bacteremia: (2) Cellulitis: Plan 88yo F with h/o cellulitis of bl LEs with recent admission 08/2023 for RLE cellulitis (dcd on cefadroxil and doxy x 7-10d), mitral regurgitation, polyarthritis, restless leg syndrome, idiopathic polyneuropathy, HTN, left rotator cuff arthropathy with plans for shoulder replacement surgery in January who presented on 12/04 with worsening lower extremity pain, redness and swelling along with fevers. She reported L>R pain in her legs. Here she has been afebrile, vss. Initial WBC 15.92>>7.57, Cr 0.98, LFT wnl. Lactate normal. Trop elevated. PCT 3.93. UA > 30 WBC, > 30 epith cells. BCX with Strep. CXR neg. CTH neg. Bl LE doppler normal. She was admitted for bl LE cellulitis L>R. ID consulted for Strep bacteremia. She was getting vanc/CTX, narrowed to CTX on 12/07. TTE negative for valvular vegetations. LLE appeared worse on 12/08 so vancomycin was resumed. Patient still with ongoing unchanged cellulitis in LLE. She is on broad coverage which should be more than adequate for her cellulitis especially given sensitive group C strep. I would consider pursuing imaging of the left leg (ie CT with contrast) to assess for any deeper infection (include the ankle). We can get the CT now or wait a full 48hrs on the vancomycin to see if there is some improvement, and if not then pursue the CT then. Though, the CTX alone should have been appropriate for her cellulitis and I may consider getting this CT now. # Group C Strep bacteremia # LLE cellulitis # H/o mitral regurgitation - consider CT w/ contrast of left leg (including ankle) given unchanged cellulitis on appropriate abx - continue vancomycin (pharmacy dosed protocol) - continue CTX 2g IV daily ID will continue to follow. If questions or concerns, contact Infectious Disease Call Center . Georgina Jarquin MD [facility], Division of Infectious Diseases IDConnect: [phone] Admission and Anticipated Discharge Date Admission Date: December 04, 2023 Subjective Subsequent visit was provided via telemedicine using two-way real-time interactive telecommunication between the patient and the telemedicine provider. For the duration of the visit, the provider was performing the assessment from a different facility than the patient. This includesuse of bluetooth stethoscope forauscultationperformed by the telepresenter that the telemedicine provider can hear if described in the physical exam. Bonded Structures Repairer contact information: Please call ID Connect Call Center . (Phone Number For Physician Use Only) After establishing a telemedicine visit, patient was: Patient was verified with two unique identifiers, Patient/authorized rep acknowledged consent and understanding and Gave permission to continue telehealth session Time Spent with Patient: Subsequent => 55 min Patient reports her leg feels unchanged. No vomiting, diarrhea. She is trying to keep leg elevated. Physical Exam Physical Exam: General: Awake, alert, no acute distress HEENT: NC/AT, mmm Neck: supple Lungs: respirations non-labored Heart: nl peripheral perfusion Abdomen: soft, NT/ND Ext: left leg with ongoing bright erythema, swelling, serous drainage Results & Data Vital Signs (Past 12 Hours) Vital Signs Temp Pulse Pulse Resp BP BP Pulse Ox 12/09/23 08:10 36.3 C L 84 16 156/93 H 94 12/09/23 06:31 77 12/09/23 04:01 36.5 C 72 16 174/93 H 95 12/08/23 23:06 36.7 C 79 16 164/85 H 94 12/08/23 23:00 75 O2 Del Method 12/09/23 08:10 Room Air 12/09/23 06:31 12/09/23 04:01 Room Air 12/08/23 23:06 Room Air 12/08/23 23:00 (2) Cellulitis Laterality: unspecified laterality Site of cellulitis: extremity Site of cellulitis of extremity: lower extremity Qualified Code(s): L03.119 - Cellulitis of unspecified part of limb
--- NOTE | 2023-12-09 14:20 | Hospitalist Progress Note ---
Date of Service December 09, 2023 Assessment & Plan (1) Cellulitis of both lower extremities: (2) Chronic venous insufficiency: (3) HTN (hypertension): (4) Idiopathic polyneuropathy: (5) Restless legs syndrome: (6) Edema: (7) Bacteremia: Plan Bacteremia: 3 out of 4 bottles growing group C beta strep Initially vancomycin was discontinued however per ID due to nonimprovement on the cellulitis Vanco be reintroduced Continue ceftriaxone for now with vancomycin 2D echo did not show any evidence of vegetations Appreciate infectious disease recommendations Cellulitis of bilateral lower extremities/chronic venous insufficiency- Left worse than right however both getting better Will continue wound care Vancomycin has been reintroduced We will obtain CT scan of the tibia-fibula with IV contrast There is a slight improvement in the swelling, will continue IV Lasix 40 mg twi ce daily Anticipate that patient will need ongoing wound care once she is discharged from the hospital Severe bilateral lower extremity pain, left greater than right- Secondary to idiopathic polyneuropathy and restless leg syndrome Continue home medications. Continue tramadol 50 mg p.o. 3 times daily Hypertension- Blood pressure under fair control Initially hydralazine was held Continue Full code DVT prophylaxis heparin Continue hospitalization for now Admission and Anticipated Discharge Date Admission Date: December 04, 2023 Subjective Patient seen and examined, feels her leg is about the same no improvement in the area of cellulitis or swelling Review of Systems Review of Systems: All systems reviewed are negative, apart from the ones contained in the history. Physical Exam Physical Exam: The patient is awake, alert and oriented 3, well developed and well nourished, normocephalic and atraumatic, lying in bed and in no acute distress. HEENT--PERRL, EOMI, mucous membranes and oropharynx mildly dry Neck--supple. No JVD. No bruits. Thyroid normal, trachea midline, no adenopathy. Heart--normal S1 and S2. No murmurs, rubs or gallops. Lungs--clear bilaterally, no respiratory distress, no accessory muscle use. Abdomen--normal bowel sounds and soft. Extremities--no cyanosis or clubbing. No edema. Dermatologic--improvement in area of redness lower extremity Neurologic--cranial nerves II through XII grossly intact. Rheumatologic--normal range of motion. Psychiatric--normal affect. Results & Data Results & Data Vital Signs (Past 12 Hours) Vital Signs Temp Pulse Pulse Resp BP Pulse Ox O2 Del Method 12/09/23 11:48 98.1 F 84 18 155/83 H 96 Room Air 12/09/23 08:10 97.3 F L 84 16 156/93 H 94 Room Air 12/09/23 07:44 163 H 12/09/23 06:31 77 12/09/23 04:01 97.7 F 72 16 174/93 H 95 Room Air PG Care Time/CCT Total # of Minutes Spent Total Time Spent with Patient: Total time spent is greater than 50% in coordination of care (as documented) at patient's floor/unit and/or counseling patient: Coding Level of Care Code 53616 SUB INP/OBS CARE 2/35MIN Diagnoses Cellulitis of both lower extremities L03.115; L03.116 Chronic venous insufficiency I87.2 HTN (hypertension) I10 Idiopathic polyneuropathy G60.9 Restless legs syndrome G25.81 Edema R60.9 Bacteremia R78.81 Time Spent (min) 35
[2023-12-09] MEDS: OPTIRAY 320 500ml IV ONE (15:35)
--- NOTE | 2023-12-09 16:31 | CT Scan Report ---
CT SCAN OF THE LEFT TIBIA AND FIBULA WITH IV CONTRAST CLINICAL HISTORY: Cellulitis. COMPARISON STUDY: No priors. TECHNIQUE: Following the IV administration 92 mL of Optiray 320, CT scan of the left tibia and fibula was performed from the knee to the ankle. Images were reviewed in the axial, sagittal, and coronal p lanes. IV contrast was administered without complication. A dose lowering technique was utilized adhe ring to the principles of ALARA. Note that interpretation is suboptimal without plain film correlate. The examination is degraded by streak artifact from a left knee arthroplasty. CT DOSE: 433.84 mGy.cm FINDINGS: The skeletal structures are osteopenic. There is no evidence of tibial or fibular fracture. A left knee arthroplasty is in place. The ankle mortise appears intact. No bony erosion is seen. No lytic or blastic lesion is identified. Subcutaneous soft tissue edema and fluid is seen throughout th e left lower extremity, consistent with a reported history of cellulitis. No organized/drainable flui d collection is seen to indicate abscess. The regional vessels appear patent. Superficial venous vari cosities are noted. There is mild generalized atrophy of the regional musculature. The Achilles tendo n is intact as imaged. IMPRESSION: 1. No acute bony abnormality is seen involving the left tibia or fibula. 2. Subcutaneous soft tissue edema and fluid throughout the left lower extremity is consistent with th e reported history of cellulitis. 3. No organized/drainable fluid collection is seen to indicate abscess. ACT 112: Negative or not required by law. Dictated: 12/09/2023 4:12 PM Transcribed: 12/09/2023 4:21 PM [id number] [email or web address] Electronically signed by: Merrick James M.D. 12/09/2023 4:30 PM
[2023-12-10 07:56] LABS: BUN Creatinine Ratio 30.7 (10-20); Calcium 9.2 mg/dl (8.6-10.3); Creatinine Clr Calc Pharmacy 53.4 ml/min; Est GFR (African American) 82.5 ml/min; Est GFR (Non-African American) 71.2 ml/min; Potassium 3.7 mmol/L (3.5-5.1)
--- NOTE | 2023-12-10 12:11 | Hospitalist Progress Note ---
Date of Service December 10, 2023 Assessment & Plan (1) Cellulitis of both lower extremities: (2) Chronic venous insufficiency: (3) HTN (hypertension): (4) Idiopathic polyneuropathy: (5) Restless legs syndrome: (6) Edema: (7) Bacteremia: Plan Bacteremia: 3 out of 4 bottles growing group C beta strep Initially vancomycin was discontinued however per ID due to nonimprovement on the cellulitis Vanco be reintroduced Continue ceftriaxone for now with vancomycin, may need at least 2 weeks of antibiotics 2D echo did not show any evidence of vegetations Appreciate infectious disease recommendations Cellulitis of bilateral lower extremities/chronic venous insufficiency- Some improvement in the area of cellulitis and also the swelling CT scan of tibia-fibula with contrast did not show any evidence of abscess, only confirm cellulitis Will continue wound care Continue IV vancomycin and ceftriaxone Severe bilateral lower extremity pain, left greater than right- Secondary to idiopathic polyneuropathy and restless leg syndrome Continue home medications. Continue tramadol 50 mg p.o. 3 times daily Hypertension- Blood pressure under fair control Will reintroduce losartan Continue Full code DVT prophylaxis heparin Continue hospitalization for now Admission and Anticipated Discharge Date Admission Date: December 04, 2023 Subjective Patient seen and examined, redness and swelling much improved Review of Systems Review of Systems: All systems reviewed are negative, apart from the ones contained in the history. Physical Exam Physical Exam: The patient is awake, alert and oriented 3, well developed and well nourished, normocephalic and atraumatic, lying in bed and in no acute distress. HEENT--PERRL, EOMI, mucous membranes and oropharynx mildly dry Neck--supple. No JVD. No bruits. Thyroid normal, trachea midline, no adenopathy. Heart--normal S1 and S2. No murmurs, rubs or gallops. Lungs--clear bilaterally, no respiratory distress, no accessory muscle use. Abdomen--normal bowel sounds and soft. Extremities--no cyanosis or clubbing. No edema. Dermatologic--improvement in area of redness lower extremity Neurologic--cranial nerves II through XII grossly intact. Rheumatologic--normal range of motion. Psychiatric--normal affect. Results & Data Results & Data Vital Signs (Past 12 Hours) Vital Signs Temp Pulse Pulse Resp BP Pulse Ox O2 Del Method 12/10/23 08:28 98.1 F 76 18 162/81 H 92 Room Air 12/10/23 05:57 70 12/10/23 03:39 97.5 F L 80 18 166/92 H 97 Room Air PG Care Time/CCT Total # of Minutes Spent Total Time Spent with Patient: Total time spent is greater than 50% in coordination of care (as documented) at patient's floor/unit and/or counseling patient: Coding Level of Care Code 55549 SUB INP/OBS CARE 2/35MIN Diagnoses Cellulitis of both lower extremities L03.115; L03.116 Chronic venous insufficiency I87.2 HTN (hypertension) I10 Idiopathic polyneuropathy G60.9 Restless legs syndrome G25.81 Edema R60.9 Bacteremia R78.81 Time Spent (min) 35
--- NOTE | 2023-12-10 14:16 | Infectious Disease Progress Nt ---
Date of Service December 10, 2023 Assessment & Plan (1) Bacteremia: (2) Cellulitis: Plan 88yo F with h/o cellulitis of bl LEs with recent admission 08/2023 for RLE cellulitis (dcd on cefadroxil and doxy x 7-10d), mitral regurgitation, bl knee replacements, polyarthritis, restless leg syndrome, idiopathic polyneuropathy, HTN, left rotator cuff arthropathy with plans for shoulder replacement surgery in January who presented on 12/04 with worsening lower extremity pain, redness and swelling along with fevers. She reported L>R pain in her legs. Here she has been afebrile, vss. Initial WBC 15.92>>7.57, Cr 0.98, LFT wnl. Lactate normal. Trop elevated. PCT 3.93. UA > 30 WBC, > 30 epith cells. BCX with Strep. CXR neg. CTH neg. Bl LE doppler normal. She was admitted for bl LE cellulitis L>R. ID consulted for Strep bacteremia. She was getting vanc/CTX, narrowed to CTX on 12/07. TTE negative for valvular vegetations. LLE appeared worse on 12/08 so vancomycin was resumed. CT left LE with subcutaneous soft tissue edema and fluid throughout the LLE c/w cellulitis, no fluid collections. Erythema and edema with some improvement today. Will keep patient on broader coverage with both vancomycin and CTX. For her bacteremia, she will need to complete 14 days of abx and also include MRSA coverage for her cellulitis since it improved with the addition of vancomycin. Regimen can be amoxicillin or levofloxacin for Strep bacteremia along with doxycycline for MRSA cellulitis coverage. # Group C Strep bacteremia # LLE cellulitis # H/o mitral regurgitation - continue vancomycin (pharmacy dosed protocol) and CTX 2g IV daily - if cellulitis continues to improve, then she can be discharged on doxycycline 100mg PO twice daily PLUS amoxicillin 1g PO three times daily to complete 14 days (starting 12/07, eot 01/20) ID will continue to follow. If questions or concerns, contact Infectious Disease Call Center . Georgina Jarquin MD [facility], Division of Infectious Diseases [facility]Connect: [phone] Admission and Anticipated Discharge Date Admission Date: December 04, 2023 Subjective Subsequent visit was provided via telemedicine using two-way real-time interactive telecommunication between the patient and the telemedicine provider. For the duration of the visit, the provider was performing the assessment from a different facility than the patient. This includesuse of bluetooth stethoscope forauscultationperformed by the telepresenter that the telemedicine provider can hear if described in the physical exam. Handkerchief Maker contact information: Please call ID Connect Call Center . (Phone Number For Physician Use Only) After establishing a telemedicine visit, patient was: Patient was verified with two unique identifiers, Patient/authorized rep acknowledged consent and understanding and Gave permission to continue telehealth session Time Spent with Patient: Subsequent => 55 min Patient doing well. Some imporvement in redness. No other issues. Physical Exam Physical Exam: General: Awake, alert, no acute distress HEENT: NC/AT, EOMI, mmm Neck: supple Lungs: respirations non-labored Heart: nl peripheral perfusion Abdomen: soft, NT/ND Ext: left leg with slight improvement in erythema Results & Data Vital Signs (Past 12 Hours) Vital Signs Temp Pulse Pulse Resp BP Pulse Ox O2 Del Method 12/10/23 12:42 36.3 C L 81 18 124/78 95 Room Air 12/10/23 08:28 36.7 C 76 18 162/81 H 92 Room Air 12/10/23 05:57 70 12/10/23 03:39 36.4 C L 80 18 166/92 H 97 Room Air (2) Cellulitis Laterality: unspecified laterality Site of cellulitis: extremity Site of cellulitis of extremity: lower extremity Qualified Code(s): L03.119 - Cellulitis of unspecified part of limb
[2023-12-11 06:02] LABS: Hematocrit (blood only) 33.9 % (37.0-47.0); Hemoglobin 11.3 g/dl (12.0-16.0); Mean Corpuscular Hgb Conc 33.3 g/dL (32.0-36.0); Mean Corpuscular Volume 86.9 fL (80.0-100.0); Mean Platelet Volume 9.2 fL (9.4-12.4); Platelet Count 259 K/uL (130-400); RDW Coefficient of Variation 14.6 % (11.5-14.5); RDW Standard Deviation 46.3 fL (36.4-46.3); White Blood Count 8.03 K/ul (4.8-10.8)
[2023-12-11 06:12] LABS: BUN Creatinine Ratio 31.8 (10-20); C Reactive Protein 8.84 mg/dl (0-0.5); Calcium 8.8 mg/dl (8.6-10.3); Creatinine Clr Calc Pharmacy 47.1 ml/min; Est GFR (African American) 70.9 ml/min; Est GFR (Non-African American) 61.2 ml/min; Potassium 4.1 mmol/L (3.5-5.1)
[2023-12-11] MEDS: LOSARTAN POTASSIUM 50 MG TAB PO SCH (07:28)
[2023-12-11] MEDS: hydrALAZINE 10 MG TAB PO SCH (09:29)
--- NOTE | 2023-12-11 09:54 | Pharmacy Report ---
Pharmacy PK ABX Note - Date of Service December 11, 2023 - Assessment and Plan Assessment 12/10: * Day #8 of Ceftriaxone and Day #7 of Vancomycin (Vanc was discontinued on 12/07 x 24 hours then resumed on the ). * Blood cultures from 12/04/23 grew pansensitive Group C Strep. Repeat blood cultures from 12/07/23 with no growth to date. * Patient remains afebrile and without leukocytosis. Renal fxn has been stable. * ID consulted and recommend discharge on PO doxy + amoxicillin if patient's cellulitis continues to improve. Total duration of 14 days from first negative blood cultures (start date: 12/07/23 & last dose: 12/21/23). 12/08: * Vancomycin had been d/c 12/06 by provider, however restarted this morning due to worsening cellulitis. Previous levels suggestive of dosing 1500 mg iv q 24 hours appropriate, reasonable to resume prior dosing this AM 12/06: * Continues on vanc + rocephin. Day # 3 vancomycin. Blood cultures (+) Group C strep in 12/13. Renal function stable. 12/05: * 88 year old F receiving vancomycin and ceftriaxone for treatment of cellulitis/bacteremia. Blood cultures (+) GPC in chains in 12/13. Blood biofire (+) Strep spp. Discussed possible de-escalation with hospitalist to ceftriaxone today, however wishes to continue vanc at this time. ID consulted. * Day #2 of antimicrobial therapy. Plan Vancomycin * Current regimen: 1500 mg IV every 24 hours * Random level obtained 12/11/23 resulted as 12.9 mcg/mL. This is predicted to achieve target AUC/JERRICA of 400-600 mg/L.hr * Predicted AUC at steady state: 553 mg/L.hr * Continue 1500 mg IV every 24 hours * Repeat random level ordered for: 12/14/23 Ceftriaxone * 2000 mg IV every 24 hours Pharmacy will continue to follow and will adjust dose/frequency as necessary. Thank you. Pharmacy has transitioned to AUC monitoring for vancomycin. AUC/JERRICA is the preferred PK/PD target and is associated with decreased risk of nephrotoxicity compared to traditional trough targets.
--- NOTE | 2023-12-11 10:13 | Infectious Disease Progress Nt ---
Date of Service December 11, 2023 Assessment & Plan (1) Bacteremia: (2) Cellulitis: Plan 88yo F with h/o cellulitis of bl LEs with recent admission 08/2023 for RLE cellulitis (dcd on cefadroxil and doxy x 7-10d), mitral regurgitation, bl knee replacements, polyarthritis, restless leg syndrome, idiopathic polyneuropathy, HTN, left rotator cuff arthropathy with plans for shoulder replacement surgery in January who presented on 12/04 with worsening lower extremity pain, redness and swelling along with fevers. She reported L>R pain in her legs. Here she has been afebrile, vss. Initial WBC 15.92>>7.57, Cr 0.98, LFT wnl. Lactate normal. Trop elevated. PCT 3.93. UA > 30 WBC, > 30 epith cells. BCX with Strep. CXR neg. CTH neg. Bl LE doppler normal. She was admitted for bl LE cellulitis L>R. ID consulted for Strep bacteremia. She was getting vanc/CTX, narrowed to CTX on 12/07. TTE negative for valvular vegetations. Joints looked good. LLE appeared worse on 12/08 so vancomycin was resumed. CT left LE with subcutaneous soft tissue edema and fluid throughout the LLE c/w cellulitis, no fluid collections. Clinically improving. Erythema and edema continuing to improve today. For her bacteremia, she will need to complete 14 days of abx and also include MRSA coverage for her cellul itis since it improved with the addition of vancomycin. Regimen can be amoxicillin or levofloxacin for Strep bacteremia along with doxycycline for MRSA cellulitis coverage. # Group C Strep bacteremia - ngtd 12/07 # LLE cellulitis # H/o mitral regurgitation - can continue vancomycin (pharmacy dosed protocol) and CTX 2g IV daily while inpatient - she may be discharged on doxycycline 100mg PO twice daily PLUS amoxicillin 1g PO three times daily to complete 14 days (starting 12/07, eot 12/20) - While on PO doxy, patient should space out all MVI/calcium/dairy/iron pills/acid meds at least 2 hours before/after taking this Abx. She should take the doxy with a full glass of water, and wear sunscreen if out in the sun for >15 mins time - monitor for diarrhea while on antibiotics - outpatient follow up with PCP ID will discontinue active follow up at this time. Please do not hesitate to reconsult the Infectious Diseases service as needed. Georgina Jarquin MD [facility], Division of Infectious Diseases [facility]: [phone] Admission and Anticipated Discharge Date Admission Date: December 04, 2023 Subjective Subsequent visit was provided via telemedicine using two-way real-time interactive telecommunication between the patient and the telemedicine provider. For the duration of the visit, the provider was performing the assessment from a different facility than the patient. This includesuse of bluetooth stethoscope forauscultationperformed by the telepresenter that the telemedicine provider can hear if described in the physical exam. Family Helper contact information: Please call [facility] Call Center . (Phone Number For Physician Use Only) After establishing a telemedicine visit, patient was: Patient was verified with two unique identifiers, Patient/authorized rep acknowledged consent and understanding and Gave permission to continue telehealth session Time Spent with Patient: Subsequent => 55 min Patient doing well, no complaints. She says she is ready to go home. No diarrhea, leg feels better. Physical Exam Physical Exam: General: Awake, alert, no acute distress HEENT: NC/AT, EOMI, mmm Neck: supple Lungs: respirations non-labored Heart: nl peripheral perfusion Abdomen: soft, NT/ND Ext: left leg with improving swelling and redness Results & Data Vital Signs (Past 12 Hours) Vital Signs Temp Pulse Pulse Resp BP BP Pulse Ox 12/11/23 08:05 36.5 C 86 15 157/96 H 93 12/11/23 07:00 72 12/11/23 04:05 36.9 C 76 18 150/78 H 96 12/10/23 23:27 36.7 C 79 16 155/87 H 93 12/10/23 22:33 76 O2 Del Method 12/11/23 08:05 Room Air 12/11/23 07:00 12/11/23 04:05 Room Air 12/10/23 23:27 Room Air 12/10/23 22:33 Laboratory Results 12/04 BCX: group C beta-hem Strep in 3/4 bottles (crespo-sensitive) 12/05 UCx: multiple organisms 12/07 BCx: ngtd (2) Cellulitis Laterality: unspecified laterality Site of cellulitis: extremity Site of cellulitis of extremity: lower extremity Qualified Code(s): L03.119 - Cellulitis of unspecified part of limb
--- NOTE | 2023-12-11 11:29 | Discharge Summary ---
Date of Service December 11, 2023 Admission HPI Per Admitting Provider The patient is an 88-year-old female, who supplies history with help of her , with a past medical history including cellulitis of both lower extremities, polyarthritis, restless leg syndrome, idiopathic polyneuropathy, hypertension, and with plans for future shoulder replacement surgery in January. She presents to the emergency department with worsening lower extremity redness and swelling, and developed fever and pain over the past 24 to 48 hours. The patient is very fatigued, keeps her eyes closed through most of the interview, and her supplies most of the history. Patient does primarily complain of severe bilateral lower extremity pain, left greater than right that she attributes to her restless leg syndrome, having not been able to take her medications earlier in the day Principal Diagnosis Bilateral lower extremity cellulitis Discharge Exam The patient is awake, alert and oriented 3, well developed and well nourished, normocephalic and atraumatic, lying in bed and in no acute distress. HEENT--PERRL, EOMI, mucous membranes and oropharynx mildly dry Neck--supple. No JVD. No bruits. Thyroid normal, trachea midline, no adenopathy. Heart--normal S1 and S2. No murmurs, rubs or gallops. Lungs--clear bilaterally, no respiratory distress, no accessory muscle use. Abdomen--normal bowel sounds and soft. Extremities--no cyanosis or clubbing. No edema. Dermatologic--improvement in area of redness lower extremity Neurologic--cranial nerves II through XII grossly intact. Rheumatologic--normal range of motion. Psychiatric--normal affect. Discharge Data Allergies Allergy/AdvReac Type Severity Reaction Status Date / Time No Known Allergies Allergy Verified 11/24/23 14:40 Consultations 12/04/23 22:14 ED Decision to Admit Stat 12/05/23 11:33 Consult Infectious Diseases Routine Ordered Studies 12/04/23 18:51 CT head/brain wo con Stat US venous doppler LE BI Stat 12/09/23 14:14 CT leg [CT tib/fib LT w con] Routine Hospital Course (1) Cellulitis of both lower extremities: (2) Chronic venous insufficiency: (3) HTN (hypertension): (4) Idiopathic polyneuropathy: (5) Restless legs syndrome: (6) Edema: (7) Bacteremia: Plan Bacteremia: 3 out of 4 bottles growing group C beta strep Initially vancomycin was discontinued however per ID due to nonimprovement on the cellulitis Vanco be reintroduced Continue ceftriaxone for now with vancomycin, may need at least 2 weeks of an tibiotics 2D echo did not show any evidence of vegetations Appreciate infectious disease recommendations Cellulitis of bilateral lower extremities/chronic venous insufficiency- Some improvement in the area of cellulitis and also the swelling CT scan of tibia-fibula with contrast did not show any evidence of abscess, only confirm cellulitis Will continue wound care Change antibiotics to p.o. doxycycline 100 mg twice daily and also amoxicillin 1 g 3 times daily end date 12/21/2023 Severe bilateral lower extremity pain, left greater than right- Secondary to idiopathic polyneuropathy and restless leg syndrome Continue home medications. Continue tramadol 50 mg p.o. 3 times daily Hypertension- Blood pressure under fair control Will reintroduce losartan Continue Full code DVT prophylaxis heparin Continue hospitalization for now Total Time Total Time Spent Total Time Spent (In Minutes): 35 Discharge Plan Discharge Items Patient Disposition: Home - Home Health Services Reason For Visit: SEPSIS DUE TO B/1 LE CELLULITIS Discharge Diagnosis: Bacteremia, lower extremity cellulitis Activity: Resume your previous activity Non-emergency contact: Primary Care Provider Call non-emergency contact if: you have any medication questions Follow-up/Referrals: Makayla Adan [Primary Care Provider] - 12/23/23 10:25 am (appt. with Belkis Garcia) Diet: Regular Addtl Attending Provider Instructions: Please While on Doxycycline, you should space out all Multivitamin/calcium/d airy/iron pills/acid meds at least 2 hours before/after taking this antibiotic. You should take the doxycycline with a full glass of water, and wear sunscreen if out in the sun for >15 mins time, monitor for diarrhea while on antibiotics Please follow-up with your PCP and also wound care Pending Studies at Discharge: No Stand-Alone Forms: [employer], Smoking Cessation Medications and DC Order Prescriptions: New furosemide [Lasix] 40 mg tablet 40 mg PO DAILY 5 Days Qty: 5 0RF doxycycline hyclate 100 mg capsule 100 mg PO BID 11 Days Qty: 22 0RF amoxicillin 500 mg capsule 1,000 mg PO TID 11 Days Qty: 66 0RF Continued pramipexole 0.5 mg tablet 0.5 mg PO .COMPLEX 30 Days Qty: 150 5RF Rx Instructions: take 3 tabs at noon and 2 tabs at 6pm tramadol 50 mg tablet 50 mg PO TID 30 Days Qty: 90 5RF Rx Instructions: Dx: G60.9 diphenhydramine HCl [Benadryl Allergy] 25 mg tablet 25 mg PO HS PRN (Reason: Sleep) escitalopram oxalate 10 mg tablet 10 mg PO DAILY triamcinolone acetonide 0.1 % cream 1 applic topical DAILY PRN (Reason: Skin Irritation) cholecalciferol (vitamin D3) 50 mcg (2,000 unit) capsule 2,000 unit PO QAM losartan 100 mg tablet 100 mg PO QAM spironolactone 25 mg tablet 50 mg PO DAILY cyanocobalamin (vitamin B-12) 500 mcg tablet 500 mcg PO QAM zinc gluconate 50 mg tablet 50 mg PO QAM celecoxib [Celebrex] 200 mg capsule 200 mg PO BID Qty: 60 1RF ondansetron 4 mg tablet,disintegrating 4 mg PO Q6H PRN (Reason: nausea and vomiting) Qty: 14 0RF desonide 0.05 % Cream 1 applic TOPICAL BID PRN (Reason: Skin Irritation) aspirin 325 mg Tablet 325 mg PO BID PRN (Reason: Pain) hydralazine 25 mg tablet 25 mg PO TID psyllium husk 0.52 gram Capsule 1.04 g PO DAILY diclofenac sodium 1 % Gel 2 g TOPICAL QID PRN (Reason: Pain) Centrum Minis Women 50 Plus 4 mg iron-200 mcg-25 mcg Tablet 1 tab PO QAM famotidine 10 mg tablet 20 mg PO DAILY PRN (Reason: HEARTBURN/INDIGESTION) Discharge Orders: Discharge Order (Routine); Ordered 12/11/23 Ordered By: Jamal Terrell Admission Data Admit Date/Time: 12/04/23 23:22 Attending Provider: Jamal Terrell Admit Provider: Дмитрий Valero Primary Care Provider: Makayla Adan Other Providers: Дмитрий Valero; Vanessa Schwab; Yamilka Farah; Suly Paul; Flora Montgomery; Georgina Jarquin; Abida Montaño; Anna Hurt; Maria L Burden Coding Level of Care Code 67165 INP/OBS DISCH >30 MIN Diagnoses Cellulitis of both lower extremities L03.115; L03.116 Chronic venous insufficiency I87.2 HTN (hypertension) I10 Idiopathic polyneuropathy G60.9 Restless legs syndrome G25.81 Edema R60.9 Bacteremia R78.81 Time Spent (min) 35
== END 2023-12-11 14:27 | disposition home health service (06) | DRG 603 ==
LOC: ED 17:22 → 2N 23:22 → SUATTDRO 23:22 → 2N 23:48

== ENCOUNTER 2024-02-05 08:12 | Observation (INO) ==
--- NOTE | 2023-12-30 13:02 | PAT Medication Instructions ---
Medication Instructions Date of Service December 30, 2023 Home Medications Medication Instructions Recorded ondansetron 4 mg disintegrating 4 mg PO Q6H PRN nausea and 09/10/22 tablet vomiting #14 tabs tramadol 50 mg tablet 50 mg PO TID 30 days #90 tabs 11/16/23 cyanocobalamin (vitamin B-12) 500 mcg tablet 500 mcg PO QAM triamcinolone acetonide 0.1 % topical cream 1 applic topical DAILY PRN Skin Irritation cholecalciferol (vitamin D3) 50 mcg (2,000 unit) capsule 2,000 unit PO QAM losartan 100 mg tablet 100 mg PO QAM zinc gluconate 50 mg tablet 50 mg PO QAM diphenhydramine HCl 25 mg tablet (Benadryl Allergy) 25 mg PO HS PRN Sleep ondansetron 4 mg disintegrating tablet 4 mg PO Q6H PRN nausea and vomiting escitalopram oxalate 10 mg tablet 10 mg PO QAM Anxiety aspirin 325 mg tablet 325 mg PO BID PRN Pain desonide 0.05 % topical cream 1 applic topical BID PRN Skin Irritation diclofenac sodium 1 % topical gel 2 g topical QID PRN Pain hydralazine 25 mg tablet 25 mg PO TID [id number] 4 mg-folic acid 200 mcg-vit K 25 mcg-lutein tablet (Centrum Minis Women 50 Plus) 1 tab PO QAM psyllium husk 0.52 gram capsule 1.04 g PO QAM tramadol 50 mg tablet 50 mg PO TID famotidine 10 mg tablet 10 mg PO DAILY PRN HEARTBURN/INDIGESTION spironolactone 25 mg tablet 25 mg PO QAM celecoxib 200 mg capsule (Celebrex) 200 mg PO BID PRN Pain pramipexole 0.5 mg tablet 1 - 1.5 mg PO UD Continue as directed famotidine 10 mg tablet 10 mg PO DAILY PRN HEARTBURN/INDIGESTION (if needed) pramipexole 0.5 mg tablet 1 - 1.5 mg PO UD ASK your surgeon for instructions diclofenac sodium 1 % topical gel 2 g topical QID PRN Pain celecoxib 200 mg capsule (Celebrex) 200 mg PO BID PRN Pain ASK your prescriber and surgeon aspirin 325 mg tablet 325 mg PO BID PRN Pain STOP taking 24 hours before surgery triamcinolone acetonide 0.1 % topical cream 1 applic topical DAILY PRN Skin Irritation desonide 0.05 % topical cream 1 applic topical BID PRN Skin Irritation DO NOT take the morning of surgery cyanocobalamin (vitamin B-12) 500 mcg tablet 500 mcg PO QAM cholecalciferol (vitamin D3) 50 mcg (2,000 unit) capsule 2,000 unit PO QAM cucrendf-nfc-iudl 4 mg-folic acid 200 mcg-vit K 25 mcg-lutein tablet (Centrum Minis Women 50 Plus) 1 tab PO QAM psyllium husk 0.52 gram capsule 1.04 g PO QAM losartan 100 mg tablet 100 mg PO QAM zinc gluconate 50 mg tablet 50 mg PO QAM spironolactone 25 mg tablet 25 mg PO QAM Take morning of surgery With a small sip of water, OTHERWISE NOTHING TO EAT OR DRINK AFTER MIDNIGHT: ondansetron 4 mg disintegrating tablet 4 mg PO Q6H PRN nausea and vomiting (if needed) escitalopram oxalate 10 mg tablet 10 mg PO QAM Anxiety hydralazine 25 mg tablet 25 mg PO TID tramadol 50 mg tablet 50 mg PO TID Take evening before surgery diphenhydramine HCl 25 mg tablet (Benadryl Allergy) 25 mg PO HS PRN Sleep (if needed) ondansetron 4 mg disintegrating tablet 4 mg PO Q6H PRN nausea and vomiting (if needed) hydralazine 25 mg tablet 25 mg PO TID tramadol 50 mg tablet 50 mg PO TID Other Notes If you have any questions please call us at [phone] or [phone] or [phone] or [phone]
--- NOTE | 2024-01-07 13:25 | Anesthesiology Consultation ---
Date of Service January 07, 2024 Assessment & Plan (1) Encounter for pre-operative examination: Chart Review Chart Review: Acceptable Risk for Surgery (pending response from vascular surgery ) and Patient seen in Pre Admission Testing - Awaiting workload response from vascular surgery (patient scheduled for Venaseal on 01/20/24)- awaiting response if patient can also proceed with TSA on 02/05/24 - Patient is NOT an OPJ candidate Per PAT appt on 01/07/24, no recent illness/disease exposures, illness related symptoms, or recent illness/disease positive tests. Will leave to surgeon's discretion if preop Covid testing needed Patient seen by cardio 11/24/23= seen for follow up on multiple concerns. Patient with left shoulder pain in the scheduled for left shoulder surgery in January 2024. Continues with lower extremity edema. However is engaged in several interventions including lower extremity wrapping, elevation and venous ablation scheduled for near future. Dilated aortic root4 cm on most recent echo. Will likely not be an issue during course of her lifetime. However we will be obtaining stress echocardiogram and can reevaluate the size. Mild MRwill repeat echocardiogram. LVHlikely to longstanding hypertension. Hypertensionseems to be well-controlled currently. Atrial bigeminyno symptoms/normal rhythm today. Lower extremity edemaelement of lipedema and possible venous insufficiencywithout missing address. Tachycardiaresolved. Preoperative: "Unfortunately, she performs little activity due to her lower extremity edema and heavy legs. She also seems to have an element of dementia. In order to better risk stratify her for the intended procedure think it is reasonable to perform stress echocardiography. Perfusion imaging would be my 1st choice, but she can not really lift her left arm to obtain adequate images." (DSE done 01/04/24- per 01/07/24 workload note to cardio- cardio informed of recent ECHO and DSE done- did inquire if patient was final acceptable risk for surgery- cardio response "yes".) Teaching & Discussion Pre-Anesthesia Teaching/Discussion Notes: Instructed NPO after midnight before surgery,except medications with 15 cc of water. Medication instructions provided according to the PAT guidelines. History Surgery Operation Date: 02/05/24 11:00 Proposed Procedures p Left Reverse Total Shoulder Arthroplasty - Ozzie Perry DO Height/Weight Height: 5 ft Weight: 88.8 kg Allergies Allergy/AdvReac Type Severity Reaction Status Date / Time No Known Allergies Allergy Verified 12/29/23 09:21 Medications Home Medications Medication Instructions Recorded Confirmed Last Taken cyanocobalamin (vitamin B-12) 500 500 mcg PO QAM 05/01/20 12/29/23 08/18/23 mcg tablet triamcinolone acetonide 0.1 % 1 applic topical DAILY PRN Skin 09/25/20 12/29/23 06/24/21 topical cream Irritation cholecalciferol (vitamin D3) 50 2,000 unit PO QAM 02/11/21 12/29/23 08/18/23 mcg (2,000 unit) capsule losartan 100 mg tablet 100 mg PO QAM 02/11/21 12/29/23 08/18/23 zinc gluconate 50 mg tablet 50 mg PO QAM 02/11/21 12/29/23 08/18/23 diphenhydramine HCl 25 mg tablet 25 mg PO HS PRN Sleep 07/16/21 12/29/23 Unknown (Benadryl Allergy) ondansetron 4 mg disintegrating 4 mg PO Q6H PRN nausea and 09/10/22 12/29/23 Unknown tablet vomiting #14 tabs escitalopram oxalate 10 mg tablet 10 mg PO QAM Anxiety 09/24/22 12/29/23 Unknown aspirin 325 mg tablet 325 mg PO BID PRN Pain 08/18/23 12/29/23 Unknown desonide 0.05 % topical cream 1 applic topical BID PRN Skin 08/18/23 12/29/23 Unknown Irritation diclofenac sodium 1 % topical gel 2 g topical QID PRN Pain 08/18/23 12/29/23 Unknown hydralazine 25 mg tablet 25 mg PO TID 08/18/23 12/29/23 08/18/23 12:00 [id number] 4 mg-folic acid 1 tab PO QAM 08/18/23 12/29/23 08/18/23 200 mcg-vit K 25 mcg-lutein tablet (Centrum Minis Women 50 Plus) psyllium husk 0.52 gram capsule 1.04 g PO QAM 08/18/23 12/29/23 08/18/23 tramadol 50 mg tablet 50 mg PO TID 30 days #90 tabs 11/16/23 12/29/23 Unknown famotidine 10 mg tablet 10 mg PO DAILY PRN 11/20/23 12/29/23 Unknown HEARTBURN/INDIGESTION spironolactone 25 mg tablet 25 mg PO QAM 11/20/23 12/29/23 Unknown celecoxib 200 mg capsule (Celebrex) 200 mg PO BID PRN Pain 12/29/23 12/29/23 Unknown pramipexole 0.5 mg tablet 1 - 1.5 mg PO UD 12/29/23 12/29/23 Unknown Past Medical History Medical History Bacteremia - Admitted to [facility] 12/04/23-12/11/23--admitted for cellulitis/treated- resolved per patient per PAT appt 01/07/24 Cellulitis of both lower extremities Admitted 11/2023- resolved per wound clinic visit 12/14/23 Dilated aortic root follows with Dr. Sharp Mildly dilated ascending aorta at 3.9cm per 11/2023 ECHO Edema to bilateral LE edema L>R following with vascular surgery- scheduled for upcoming Venaseal before TSA Frequency of urination and polyuria Chronic History of colon cancer, stage I 2013- s/p colon resection- no chemo or XRT Hypertension Idiopathic polyneuropathy Restless legs syndrome Exercise / Class Metabolic Activity III < 4 Walking/Shop/Light housework (no chest pain or SOB with short distance/flat surface ambulation- uses wheeled walker ) Past Family History Family History Father CHF (congestive heart failure) Cardiac arrest Hypertension Mother Cardiac arrest Cardiac disorder Hypertension Stroke Sister Hypertension Stroke Aunt Stomach cancer Other No family history of adverse response to anesthesia Denies family history of Ovarian cancer Prostate cancer Myocardial infarction Breast cancer Bleeding disorder Colorectal cancer Past Surgical History Surgical History History of cardiac cath (2013) pt states she can't remember this, per Dr. Sharp record no stents History of cataract surgery (2009) bilateral History of cholecystectomy History of colon surgery colon resection due to cancer History of colonoscopy History of knee replacement bilateral--left and right knee History of right shoulder replacement History of thumb surgery right History of tubal ligation (1970) Past Anesthesia History No Hx of Anesthesia Complications and No Family Hx of Anesthesia Complications History of PONV No Hx of PONV and No Hx of Motion Sickness Social History Smoking Status: Never smoker Do You Dip or Chew Tobacco: No Hx Alcohol Use: Yes Alcohol type: wine alcohol intake frequency: holidays/special occasions only Hx Substance Use: No substance use type: does not use Review of Systems Patient denies chest pain, shortness of breath, dyspnea on exertion, reflux, cough, wheezing, palpitations. No hx of seizures, stroke, [place], apnea/snoring. No hx of blood clots or blood transfusions Physical Exam Vital Signs VITALS BP 133/83 P 91 TEMP 97.5 SP02 97% RESP 16 Constitutional no acute distress ENMT Mouth: no TMJ clicking Thyromental Distance: > or= 3.5 Finger Breadths (3.5) Mallampati Class: III Neck + limited neck extension Respiratory normal respiratory effort; no respiratory distress Auscultation: lungs clear to auscultation bilaterally; no wheezes Cardiovascular Rate/Rhythm: regular rate and regular rhythm Heart Sounds: no murmur Vessels: no carotid bruit Musculoskeletal Spine: no pain with cervical ROM Extremities: extremities normal to inspection Psychiatric Orientation: alert Lab Results Anesthesia Preop Results Results Anesthesia Widget: WBC 8.56 K/ul (4.8-10.8) 01/07/24 Hgb 11.2 g/dl (12.0-16.0) L 01/07/24 Hct 34.7 % (37.0-47.0) L 01/07/24 Plt 255 K/uL (130-400) 01/07/24 Na 131 mmol/L (136-145) L 01/07/24 K 4.4 mmol/L (3.5-5.1) 01/07/24 Cl 100 mmol/L (98-107) 01/07/24 CO2 25 mmol/L (21-32) 01/07/24 BUN 31 mg/dl (6-23) H 01/07/24 Creat 0.88 mg/dl (0.6-1.2) 01/07/24 Glucose Level 88 mg/dl (70-99(Fasting)) 01/07/24 PT 10.7 Seconds (9.0-12.0) 01/07/24 PTT 30 Seconds (21-31) 01/07/24 INR 1.0 (0.9-1.1) 01/07/24 Blood Type O Positive 01/07/24 Antibody Screen NEGATIVE 01/07/24 Testing Laboratory Results Anemia- chronic and stable Hyponatremia- usually in low 130s Electrocardiogram Date: 01/07/24 SR with 1st degree AVB at 74bpm Incomplete RBBB Inferior infarct (cited on or before Dec 05, 2023) When compared to EKG from Dec 05, 2023- questionable change in initial forces of inferior leads per cardio Chest X-Ray Date: 01/07/24 FINDINGS: Right shoulder arthroplasty is incidentally noted. Moderate cardiom egaly is unchanged. There is no evidence for pulmonary edema. There is no pneumothorax or pleural effusion. No consolidation is identified. IMPRESSION: No acute cardiopulmonary findings. Stable cardiomegaly. Echocardiogram Date: 12/07/23 EF: 65-70% LV Function: normal RWMA: + none Other Findings: + LVH (Moderate/concentric) and + diastolic dysfunction (Grade 1) Mildly dilated ascending aorta (3.9 cm in diameter). No valvular vegetation identified Compared with study on 04/23/2022, no significant change Stress Test Date: 01/04/24 Type: DSE Normal dobutamine echocardiogram without evidence of inducible ischemia Baseline EKG demonstrates diffuse T wave inversions. Worsening ST segment depression at peak dobutamine infusion and heart rate. However, normal augmentation of all segments with dobutamine and no evidence of inducible ischemia on echo images. Other Testing Holter monitor 07/02/2021 = basic rhythm was normal sinus rhythm. Occasional isolated PVCs. Rare ventricular couplets/triplets. Very frequent PACs often with emergency, atrial pairs, atrial bigeminy, atrial trigeminy and very frequent short bursts of atrial tachycardia which were up to 10 beats in duration up to 200 bpm. No pauses greater than 3 seconds or evidence of AV b lock. No correlation of symptoms with any electrocardiographic abnormality.
--- NOTE | 2024-02-04 13:16 | History & Physical Report ---
Date of Service February 04, 2024 Assessment & Plan (1) Osteoarthritis of left shoulder: We will proceed with a left reverse shoulder arthroplasty. Postoperatively she will be placed in a sling and kept overnight in the hospital for postop medical management. She plans to use energy physical therapy upon discharge. History of Present Illness Chief Complaint: Osteoarthritis of the left shoulder. Primary Care Provider: Makayla S. Loco Huynh is a pleasant 88-year-old female who has been dealing with chronically increasing left shoulder pain. 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 After failing conservative treatment, she has elected proceed with a left reverse shoulder arthroplasty. Allergies Allergy/AdvReac Type Severity Reaction Status Date / Time No Known Allergies Allergy Verified 12/29/23 09:21 Home Medications Medication Instructions Recorded Confirmed Type cyanocobalamin (vitamin B-12) 500 500 mcg PO QAM 05/01/20 12/29/23 History mcg tablet triamcinolone acetonide 0.1 % 1 applic topical DAILY PRN Skin 09/25/20 12/29/23 History topical cream Irritation cholecalciferol (vitamin D3) 50 2,000 unit PO QAM 02/11/21 12/29/23 History mcg (2,000 unit) capsule losartan 100 mg tablet 100 mg PO QAM 02/11/21 12/29/23 History zinc gluconate 50 mg tablet 50 mg PO QAM 02/11/21 12/29/23 History diphenhydramine HCl 25 mg tablet 25 mg PO HS PRN Sleep 07/16/21 12/29/23 History (Benadryl Allergy) ondansetron 4 mg disintegrating 4 mg PO Q6H PRN nausea and 09/10/22 12/29/23 Rx tablet vomiting #14 tabs escitalopram oxalate 10 mg tablet 10 mg PO QAM Anxiety 09/24/22 12/29/23 History aspirin 325 mg tablet 325 mg PO BID PRN Pain 08/18/23 12/29/23 History desonide 0.05 % topical cream 1 applic topical BID PRN Skin 08/18/23 12/29/23 History Irritation diclofenac sodium 1 % topical gel 2 g topical QID PRN Pain 08/18/23 12/29/23 History hydralazine 25 mg tablet 25 mg PO TID 08/18/23 12/29/23 History [id number] 4 mg-folic acid 1 tab PO QAM 08/18/23 12/29/23 History 200 mcg-vit K 25 mcg-lutein tablet (Centrum Minis Women 50 Plus) psyllium husk 0.52 gram capsule 1.04 g PO QAM 08/18/23 12/29/23 History tramadol 50 mg tablet 50 mg PO TID 30 days #90 tabs 11/16/23 12/29/23 Rx famotidine 10 mg tablet 10 mg PO DAILY PRN 11/20/23 12/29/23 History HEARTBURN/INDIGESTION spironolactone 25 mg tablet 25 mg PO QAM 11/20/23 12/29/23 History celecoxib 200 mg capsule (Celebrex) 200 mg PO BID PRN Pain 12/29/23 12/29/23 History pramipexole 0.5 mg tablet 1 - 1.5 mg PO UD 12/29/23 12/29/23 History Past Med/Surg History Medical History Bacteremia - Admitted to [facility] 12/04/23-12/11/23--admitted for cellulitis/treated- resolved per patient per PAT appt 01/07/24 Cellulitis of both lower extremities Admitted 11/2023- resolved per wound clinic visit 12/14/23 Edema to bilateral LE edema L>R following with vascular surgery- scheduled for upcoming Venaseal before TSA Hypertension Dilated aortic root follows with Dr. Sharp Mildly dilated ascending aorta at 3.9cm per 11/2023 ECHO Frequency of urination and polyuria Chronic Idiopathic polyneuropathy Restless legs syndrome History of colon cancer, stage I 2013- s/p colon resection- no chemo or XRT Surgical History History of thumb surgery right History of cholecystectomy History of cardiac cath (2013) pt states she can't remember this, per Dr. Sharp record no stents History of tubal ligation (1970) History of knee replacement bilateral--left and right knee History of colonoscopy History of cataract surgery (2009) bilateral History of colon surgery colon resection due to cancer History of right shoulder replacement Family History Father CHF (congestive heart failure) Cardiac arrest Hypertension Mother Cardiac arrest Cardiac disorder Hypertension Stroke Sister Hypertension Stroke Aunt Stomach cancer Other No family history of adverse response to anesthesia Denies family history of Ovarian cancer Prostate cancer Myocardial infarction Breast cancer Bleeding disorder Colorectal cancer Social History Smoking Status: Never smoker Second Hand Exposure: No; Do You Dip or Chew Tobacco: No; Tobacco Cessation Education Requested by Patient: No Hx Alcohol Use: Yes Alcohol type: wine Hx Substance Use: No Preferred Language: Slovak Communication Ability: Effective Visual Impairment: No Limitations Hearing Ability: Hard of Hearing Echocardiograph Technician Required: No Beliefs That Will Affect Care: Confucianist Confucianist Beliefs: Hinduism marital status: Current Living Situation: Spouse Current Living Situation Comment: living with current occupational status: retired Other Information That Helps Us Care for You: No Feels Safe at Home: Yes Safety Concerns: Feels Safe At This Time Childhood Exposure to Second-Hand Smoke: Yes Dental Care, Regularly: Yes Physical Activity Frequency: Does not Exercise Seatbelt Use: always Sunscreen Use: No Assistive Devices: Glasses, Hearing Aid - Bilateral and Walker Review of Systems All systems reviewed & are unremarkable except as noted in HPI & below. Physical Exam On physical examination left shoulder, she has decreased range of motion. She has crepitus throughout. She has pain over the glenohumeral joint line.. Constitutional WD/WN, vitals as above Eyes PERRL, conjunctivae normal, anicteric sclerae ENMT external ear and nose normal, oropharynx normal Neck trachea midline, no thyromegaly Respiratory normal respiratory effort Cardiovascular RRR, no murmur, no edema Gastrointestinal (Abdomen) normal bowel sounds, soft, nontender, no hepatosplenomegaly Psychiatric A+Ox3, euthymic affect Results & Data Results & Data Laboratory Results . Diagnostic Findings X-rays of the left shoulder show advanced osteoarthritis with joint space narrowing osteophyte formation and [id number]-[id number] articulation . PG Care Time/CCT Total # of Minutes Spent Total Time Spent with Patient: Total time spent is greater than 50% in coordination of care (as documented) at patient's floor/unit and/or counseling patient: Coding Level of Care Code None Diagnoses Osteoarthritis of left shoulder M19.012
[~2024-02-05 08:12] MED LIST changes: +BUPIVACAINE 0.5 % 5 MG/1 ML PF 10ML VIAL ONE; -CHOL1000 PO; -CYAN100020 PO; -FAMO20TA11 PO; -LOSA50TA36 PO; -MENT1800 EXT; -OXYB3.9D TD; -POTA10CA28 PO; -PROB1CAP27 PO; -ROPI0.25 PO; -TRAM-10 PO; -VERA1CAP7 PO; -ZINC1CAP PO
[2024-02-05] MEDS ORDERED: fentaNYL citrate PF 100 MCG/2 ML VIAL ONE (08:20)
[2024-02-05] MEDS ORDERED: PROPOFOL IV EMULSION 10 MG/ML 20 ML VIAL IV ONE (08:20)
--- NOTE | 2024-02-05 08:54 | History & Physical Bridge Note ---
Date of Service February 05, 2024 History & Physical Bridge Note I have examined the patient, reviewed the History & Physical and in the interval since the performance of the History & Physical I have noted the following changes of clinical significance: no changes noted
[2024-02-05] MEDS: LR 15ML/HR IV SCH (09:05)
[2024-02-05] MEDS: ACETAMINOPHEN 500 MG TAB PO SCH ×2 (09:10→15:07)
[2024-02-05] MEDS: dexAMETHasone**PF** 10 MG/ML VIAL IV SCH (09:10)
[2024-02-05] MEDS ORDERED: MIDAZOLAM HCL 1 MG/ML 2ML VIAL ONE (09:10)
[2024-02-05] MEDS: GABAPENTIN 300 MG CAP PO SCH (09:11)
[2024-02-05] MEDS: FAMOTIDINE 20 MG TAB PO SCH (09:11)
[2024-02-05] MEDS: LR 60ML/HR IV SCH (09:11)
[2024-02-05] MEDS ORDERED: ATROPINE SULFATE 0.1 MG/ML 10ML SYR IV PRN (09:36)
[2024-02-05] MEDS ORDERED: ONDANSETRON INJ 2 MG/ML 2 ML VIAL IV PRN ×2 (09:36→13:02)
[2024-02-05] MEDS ORDERED: fentaNYL citrate PF 100 MCG/2 ML VIAL IV PRN (09:36)
[2024-02-05] MEDS ORDERED: ePHEDrine sulfate 50 MG/ML AMP IV PRN (09:36)
[2024-02-05] MEDS: TRANEXAMIC ACID 1,000 MG **IV Pre-op IV SCH (09:46)
[2024-02-05] MEDS: ceFAZolin 2000MG 2,000 MG/15 ML SYR IV SCH ×2 (10:02→17:43)
[2024-02-05] MEDS ORDERED: ePHEDrine sulfate 50 MG/ML AMP ONE (10:20)
[2024-02-05] MEDS: ROPIV 0.5% 246mg, Ketorolac 30mg, EPINEPHrine 0.5mg in NSS INFIL SCH (10:45)
[2024-02-05] MEDS: ORTHO JOINT ANESTHETIC ONE (10:46)
[2024-02-05] MEDS: TRANEXAMIC ACID 1,000 MG **IV Intra-op IV SCH (11:05)
--- NOTE | 2024-02-05 11:10 | Operative Report ---
PG Post Operative Report Pre & Post Diagnosis Operation Date: 02/05/24 10:00 Pre-Op Diagnosis: Degenerative Joint Disease Left Shoulder with tendinopathy long head of biceps tendon Post-Op Diagnosis: Degenerative Joint Disease Left Shoulder with tendinopathy long head of biceps tendon I identified the patient and participated in the time-out.: Yes Procedure Operation Date: 02/05/24 10:00 Actual Procedures p Left Reverse Total Shoulder Arthroplasty(Left) with open biceps tenodesis as a distinct and separate procedure (modifier 59)- Ozzie Perry DO Surgeon Ozzie Perry DO Transport Conductor Ghanshyam Cowart PA-C Estimated Blood Loss 5 Findings Consistent with Post-Op Diagnosis Specimens Left humeral head Description of Procedure A CPT code modifier 59: The long head of the biceps tendon was enlarged and inflamed consistent with tendinopathy. A tenodesis was opted. This was a separate and distinct portion of the procedure. For these reasons, a CPT code modifier 59 will be added to this case. Implants used: I used a [employer] Comprehensive reverse total shoulder arthroplasty system with a size 8 press fit micro humeral stem, a +6 offset humeral tray and a +3 retentive humeral bearing, a 25 mm small augment baseplate with a 6.5 mm central screw and 3 peripheral locking screws, and a size 36 mm eccentric glenosphere. Amina arrived at [facility] for the above procedure. She was seen in the preoperative holding area and the operative extremity was identified and signed. She was given a preoperative antibiotic, TXA, and an interscalene nerve block. She was taken back to the operating room, laid on table in supine position, and put under general anesthesia. She was then put into the beachchair position. The shoulder was then prepped and draped in sterile fashion. A timeout was done and the patient and the operative extremity was properly identified. A deltopectoral approach was used. Dissection was taken down through the fascia and the deltoid was retracted laterally and the conjoined tendon was retracted medially. The anterior shoulder was exposed. The biceps groove was opened up and the biceps tendon was examined extensively. The biceps tendon demonstrated enlargement and inflammatory changes consistent with longstanding inflammation in the context of osteoarthritis and cuff arthropathy. The long head of the biceps tendon was then tenodesed to the upper border of the pectoralis major. This was a separate and distinct portion of the procedure. The subscapularis was then directly released off the lesser tuberosity with a peel technique. The inferior capsule was released and the humeral head was dislocated. A canal finding reamer was sent down the center of the humeral canal. Sequential reaming up to a size 8 reamer was done. Off that reamer, a proximal humeral resection guide was placed. The proximal humerus was resected at 135 of inclination and 25 of retroversion. Osteophytes were then removed and the glenoid was exposed. Time was spent doing a complete capsular and labral release. The glenoid guide was then placed in the inferior aspect of the glenoid. A 3.2 mm Steinmann pin was then placed into the glenoid vault at 10 of inclination. The glenoid baseplate was then reamed. The final size 25 mm small augment baseplate was then impacted in the place. A 6.5 mm central screw was then placed followed by superior and inferior locking screws. A 36 eccentric glenosphere was then impacted into place. Surrounding soft tissues were then injected with 100 cc an orthopedic pain control cocktail. The proximal humerus was then exposed. Sequential broaching of the humerus up to a size 8 broach was done. Off that broach a +6 offset and +3 retentive humeral tray was trialed. The shoulder was then reduced, brought through a full range of motion, and felt to be stable. The shoulder was then dislocated and the broach was removed. The final size 8 micro press-fit humeral stem was then impacted into place. A +3 retentive humeral bearing was then snapped onto a +6 offset humeral tray. The humeral tray was then impacted onto the humeral stem. The shoulder was once again reduced, brought through a full range of motion, and felt to be stable. The subscapularis was chronically retracted and poor quality. It was unable to be repaired. A dilute betadyne lavage was then done for 3 minutes. The joint was then irrigated with normal saline solution. Hemostasis was obtained. The interval was closed with 2-0 Vicryl suture. The skin was then closed with 2-0 Vicryl and iesha. A Silverlon dressing was placed and the arm was rested in a regular arm sling. She was then extubated and transferred to a hospital bed. She taken to the postanesthesia care unit in stable condition. She tolerated the procedure well. Ghanshyam Cowart PA-C, was present for the entire procedure. He was critical for patient positioning, prepping, draping, retraction exposure, wound closure and application of sterile dressing. I attest to the content of the Intraoperative Record and any orders documented therein. Any exceptions are noted below.
[2024-02-05] MEDS ORDERED: ONDANSETRON INJ 2 MG/ML 2 ML VIAL ONE (11:31)
--- NOTE | 2024-02-05 12:07 | Anesthesiology Progress Note ---
Date of Service February 05, 2024 Anesthesia Post Procedure Vital Signs Vital Signs: Temp Pulse Pulse Resp BP Pulse Ox O2 Del Method 02/05/24 12:05 97.5 F L 80 14 151/99 H 98 Room Air 02/05/24 11:55 86 20 140/83 97 Room Air 02/05/24 11:45 79 17 154/74 H 100 Oxymask 02/05/24 11:35 82 14 167/101 H 100 Oxymask 02/05/24 11:29 96.8 F L 81 15 171/90 H 97 Oxymask 02/05/24 08:45 97.7 F 84 20 142/82 H 94 Room Air O2 Flow Rate 02/05/24 12:05 02/05/24 11:55 02/05/24 11:45 4 02/05/24 11:35 7 02/05/24 11:29 7 02/05/24 08:45 Transfer of Care Handoff Completed per policy Notes Mental Status: alert / awake / arousable and participated in evaluation Patient Amnestic to Procedure: Yes Nausea / Vomiting: adequately controlled Pain: adequately controlled Airway Patency, RR, SpO2: stable & adequate BP & HR: stable & adequate Hydration State: stable & adequate Anesthetic Complications: no major complications apparent and Pt Satisfied with anesthetic care
[2024-02-05] MEDS ORDERED: METOCLOPRAMIDE HCL INJ 5 MG/ML 2 ML VIAL IV PRN (13:02)
[2024-02-05] MEDS ORDERED: bisacodyL 10 MG SUPP PR PRN (13:02)
[2024-02-05] MEDS ORDERED: HYDROmorphone INJ 0.5 MG/0.5 ML SYR IV PRN (13:02)
[2024-02-05] MEDS ORDERED: FAMOTIDINE 10 MG TABLET PO PRN (13:02)
[2024-02-05] MEDS ORDERED: NALOXONE HCL 0.4 MG/1 ML VIAL/CARP IV PRN (13:02)
[2024-02-05] MEDS ORDERED: ONDANSETRON 4 MG OD TAB PO PRN (13:02)
[2024-02-05] MEDS: SODIUM CHLORIDE 0.9% 1,000 ML IV SCH (13:35)
[2024-02-05] MEDS: hydrALAZINE HCL 25 MG TAB PO SCH (15:07)
[2024-02-05] MEDS: PRAMIPEXOLE DIHYDROCHLO 0.5 MG TAB PO SCH ×2 (15:07→17:43)
[2024-02-05] MEDS: KETOROLAC TROMETHAMINE 15 MG/ML VIAL IV SCH (15:07)
--- NOTE | 2024-02-05 16:18 | XRay Report ---
XR shoulder LT min 2V routine CLINICAL HISTORY: Post shoulder surgery COMPARISON: Left shoulder radiographs November 04, 2023. FINDINGS: Alignment of the reverse total left shoulder arthroplasty is anatomic. There is no peripro sthetic fracture or unexpected radiopaque foreign body. There are skin iesha. IMPRESSION: Expected findings following reverse total left shoulder arthroplasty. ACT 112: Negative or not required by law. Electronically signed by: Gene Dooley M.D. 02/05/2024 4:17 PM
[2024-02-05] MEDS ORDERED: ceFAZolin 1000MG 1,000 MG/7.5 ML SYR IV SCH (18:00)
[2024-02-05] MEDS: SENNA 8.6 MG TAB PO SCH (20:38)
[2024-02-05] MEDS: DOCUSATE SODIUM 100 MG CAP PO SCH (20:38)
[2024-02-06] MEDS: dexAMETHasone 4 MG TAB PO SCH (05:57)
--- NOTE | 2024-02-06 06:23 | Orthopedic Progress Note ---
Date of Service February 06, 2024 Assessment & Plan (1) Status post reverse total replacement of left shoulder: Overall she is doing very well. She is not having much pain in the left shoulder. She will be seen by physical therapy today for ambulation and range of motion exercises. She is wearing her sling as instructed. She can be discharged home later today. She will follow-up with orthopedics in 2 weeks. Benny Huynh was seen and examined at bedside this morning. Overall she is doing very well. She is not having any pain in the left arm. The nerve block is still in effect. She has no other complaints.. Review of Systems All systems reviewed & are unremarkable except as noted in HPI & below. Physical Exam On physical examination of the left shoulder, the dressing is clean and dry. She has no motion of her hand and wrist yet. The nerve block is still in effect.. Results & Data Results & Data Laboratory Results . Diagnostic Findings Postoperative x-rays of the left shoulder show the prosthesis to be in anatomic alignment without any evidence of fracture complication, or loosening.. PG Care Time/CCT Total # of Minutes Spent Total Time Spent with Patient: Total time spent is greater than 50% in coordination of care (as documented) at patient's floor/unit and/or counseling patient: Coding Level of Care Code 16928 Post Operative Follow-Up Diagnoses Status post reverse total replacement of left shoulder Z96.612
--- NOTE | 2024-02-06 06:25 | Discharge Summary ---
Date of Service February 06, 2024 Admission HPI (Per Admitting) Amina is a pleasant 88-year-old female who has been dealing with chronically increasing left shoulder pain. 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 After failing conservative treatment, she has elected proceed with a left reverse shoulder arthroplasty. Admission Exam (Per Admitting) On physical examination left shoulder, she has decreased range of motion. She has crepitus throughout. She has pain over the glenohumeral joint line.. Principal Diagnosis Same as "Discharge Diagnosis" noted below under Discharge Instructions. Discharge Exam On physical examination of the left shoulder, the dressing is clean and dry. She has no motion of her hand and wrist yet. The nerve block is still in effect.. Discharge Data Procedures Performed Operation Date: 02/05/24 10:00 Actual Procedures p Left Reverse Total Shoulder Arthroplasty(Left) - Ozzie Perry DO Ordered Studies 02/05/24 05:00 US - OR guided needle placemen Routine Hospital Course (1) Status post reverse total replacement of left shoulder: On February 05, 2024 Amina arrived at [facility] and underwent a left reverse shoulder replacement without complication. She had a general anesthetic and a left interscalene nerve block. Postoperatively she was placed in a sling and transferred to the general orthopedic floors. Her hospital course was uneventful. On postop day #1, her vital signs were stable and her pain was well-controlled. She was able to participate well with physical therapy doing ambulation and range of motion exercises. She was then discharged home. She will follow-up with orthopedics in 2 weeks. PG Care Time/CCT Total # of Minutes Spent Total Time Spent with Patient: Total time spent is greater than 50% in coordination of care (as documented) at patient's floor/unit and/or counseling patient: Discharge Plan Discharge Items Patient Disposition: Home - Self-Care Reason For Visit: Degenerative Joint Disease Left Shoulder Discharge Diagnosis: Left reverse shoulder replacement Activity: Per Instructions section Non-emergency contact: Surgeon Call non-emergency contact if: your wound has increased redness and your wound has increased drainage Follow-up/Referrals: Makayla Adan [Primary Care Provider] - Diet: Regular Addtl Attending Provider Instructions: Activity and Therapy Recommendations: * If you are using [facility] then therapy will be provided at your home until they feel you have accomplished all of your goals. * If you are using [facility] then Physical Therapy will be provided until they feel you are ready to start Outpatient Physical Therapy. * If you are not using home therapy then Outpatient Physical Therapy should start about 3-5 days from your day of surgery. Therapy will last about 8-12 weeks * Wear your sling for 3 weeks, unless otherwise instructed. You may remove your sling to shower and to dress, but otherwise, you should be in your sling at all times, including while sleeping * The shoulder replacement is very stable and you can use your hand while in the sling * You were shown a series of exercises in the hospital. Do these exercises daily including the exercises you were shown in physical therapy. Medications: * Narcotic You will likely be sent home from the hospital with a prescription for the narcotic pain medication that worked best throughout your stay. * Cefadroxil -take the antibiotic twice a day for 10 days to help prevent infection. * Other medications may be prescribed for specific circumstances. If you have any questions, please call the office at . * Resume previous home medications unless otherwise instructed Dressing Care: Leave the Silverlon dressing in place for 7 days. After 7 days you may remove the dressing. If the incision is not draining then you may leave the iesha open to air. If there is a little bit of drainage or if the iesha are getting stuck on your clothing then cover the incision with a dry dressing. The iesha will be removed at your 2 week follow-up appointment. Showering: You may shower with the Silverlon dressing in place. Do not let the shower spray hit the dressing directly. Pat the Silverlon dressing dry. If the dressing becomes wet underneath, then simply remove the dressing. Keep the incision dry until you are 7 days out from the day of surgery. After 7 days you may remove the Silverlon dressing and shower with the iesha exposed. Let soapy water run over the iesha and pat them dry. Do not scrub or soak the incision. Things To Watch For: * Drainage from the incision site that occurs more than one week after your surgery. * Increased redness at the incision site. * Fever above 102 degrees Fahrenheit. * Unusual chest pain or shortness of breath. * Call [facility] at with any of the above problems Follow-Up Visit: Follow-up with Dr. Perry's PA (Ozzie Pleitez) 2-3 weeks after your day of surgery. He will remove your iesha and answer any questions. If you have any additional questions or concerns, Dr Perry is usually in the office at the same time and will be available An appointment was probably scheduled when you signed-up for surgery in the office. If you have any questions call More detailed instructions as well as Frequently Asked Questions were provided in a folder by our office when you signed-up for surgery. Please review these instructions when you get home. If you have any further questions or concerns, please feel free to call the office at [phone] Pending Studies at Discharge: No Stand-Alone Forms: [facility], Smoking Cessation Medications and DC Order Prescriptions: New cefadroxil 500 mg capsule 500 mg PO BID 10 Days Qty: 20 0RF Continued tramadol 50 mg tablet 50 mg PO TID 30 Days Qty: 90 5RF Rx Instructions: Dx: G60.9 diphenhydramine HCl [Benadryl Allergy] 25 mg tablet 25 mg PO HS PRN (Reason: Sleep) escitalopram oxalate 10 mg tablet 10 mg PO QAM triamcinolone acetonide 0.1 % cream 1 applic topical DAILY PRN (Reason: Skin Irritation) cholecalciferol (vitamin D3) 50 mcg (2,000 unit) capsule 2,000 unit PO QAM losartan 100 mg tablet 100 mg PO QAM spironolactone 25 mg tablet 25 mg PO QAM cyanocobalamin (vitamin B-12) 500 mcg tablet 500 mcg PO QAM zinc gluconate 50 mg tablet 50 mg PO QAM ondansetron 4 mg tablet,disintegrating 4 mg PO Q6H PRN (Reason: nausea and vomiting) Qty: 14 0RF desonide 0.05 % Cream 1 applic TOPICAL BID PRN (Reason: Skin Irritation) aspirin 325 mg Tablet 325 mg PO BID PRN (Reason: Pain) hydralazine 25 mg tablet 25 mg PO TID psyllium husk 0.52 gram Capsule 1.04 g PO QAM diclofenac sodium 1 % Gel 2 g TOPICAL QID PRN (Reason: Pain) Centrum Minis Women 50 Plus 4 mg iron-200 mcg-25 mcg Tablet 1 tab PO QAM famotidine 10 mg tablet 10 mg PO DAILY PRN (Reason: HEARTBURN/INDIGESTION) celecoxib [Celebrex] 200 mg capsule 200 mg PO BID PRN (Reason: Pain) pramipexole 0.5 mg tablet 1 - 1.5 mg PO UD Rx Instructions: take 3 tabs at noon and 2 tabs at 6pm Discharge Orders: Discharge Order (Routine); Ordered 02/06/24 Ordered By: Ozzie Perry Admission Data Admit Date/Time: 02/05/24 11:37 Attending Provider: Ozzie Perry Admit Provider: Ozzie Perry Primary Care Provider: Makayla Adan
[2024-02-06] MEDS: ESCITALOPRAM OXALATE 10 MG TAB PO SCH (08:07)
[2024-02-06] MEDS: SPIRONOLACTONE 25 MG TAB PO SCH (08:08)
[2024-02-06] MEDS: LOSARTAN POTASSIUM 50 MG TAB PO SCH (08:08)
[2024-02-06] MEDS: MULTIVITAMIN TAB PO SCH (08:08)
[2024-02-06] MEDS: MAGNESIUM HYDROXIDE SUSP 30 ML UDC PO PRN (10:08)
[2024-02-06] MEDS: traMADol HCL 50 MG TABLET PO PRN (13:08)
[2024-02-06] MEDS ORDERED: ASPIRIN 325 MG ECTAB PO PRN (16:00)
--- NOTE | 2024-02-07 06:42 | Orthopedic Progress Note ---
Date of Service February 07, 2024 Assessment & Plan (1) Status post reverse total replacement of left shoulder: Overall she is doing much better. Before discharge yesterday, she was not feeling comfortable going home we decided to keep her an extra day. She will be seen by physical therapy today for ambulation and range of motion exercises. She feels much more comfortable going home today. We will discharge her to home today. She will follow-up with orthopedics in 2 weeks. Subjective Amina was seen and examined at bedside this morning. Overall she is doing better. She is having a little bit of incisional pain but she is feeling better today. She was able to get some sleep last night and has no new complaints.. Review of Systems All systems reviewed & are unremarkable except as noted in HPI & below. Physical Exam On physical examination of the left shoulder, the dressing is clean and dry. She is wearing her sling as instructed. She has full motion of her hand and her wrist.. Results & Data Results & Data Laboratory Results . Diagnostic Findings . PG Care Time/CCT Total # of Minutes Spent Total Time Spent with Patient: Total time spent is greater than 50% in coordination of care (as documented) at patient's floor/unit and/or counseling patient: Coding Level of Care Code 07143 Post Operative Follow-Up Diagnoses Status post reverse total replacement of left shoulder Z96.612
== END 2024-02-07 11:10 | disposition home or self-care (01) ==
LOC: ASU 08:12 → 3E 08:12

== ENCOUNTER 2024-02-26 16:55 | Observation (INO) ==
--- NOTE | 2024-02-26 18:01 | XRay Report ---
XR chest 1V not portable CLINICAL HISTORY: Chest pain, nonspecific TECHNIQUE: Single frontal radiograph of the chest was obtained. Comparison: Comparison is made to chest radiograph 01/07/2024 FINDINGS: Bilateral reverse arthroplasties are seen in the shoulders. Cardiomegaly is noted. The lungs are ross r. No evidence of pleural effusion or pneumothorax. IMPRESSION: No acute chest disease. Cardiomegaly is noted. ACT 112: Negative or not required by law. Electronically signed by: Israel Dale M.D. 02/26/2024 5:59 PM
[2024-02-26 18:42] LABS: Basophils # (auto) 0.03 K/uL (0.00-0.20); Basophils % (auto) 0.7 %; Eosinophils # (auto) 0.17 K/uL (0.00-0.50); Eosinophils % (auto) 3.8 %; Hematocrit (blood only) 33.2 % (37.0-47.0); Hemoglobin 11.3 g/dl (12.0-16.0); Immature Granulocytes # (auto) 0.02 K/uL (0.01-0.20); Immature Granulocytes % (auto) 0.5 %; Lymphocytes # (auto) 0.58 K/uL (1.20-3.40); Lymphocytes % (auto) 13.1 %; Mean Corpuscular Hemoglobin 29.5 pg (25.0-34.0); Mean Corpuscular Volume 86.7 fL (80.0-100.0); Mean Platelet Volume 8.9 fL (9.4-12.4); Monocytes # (auto) 0.55 K/uL (0.11-0.59); Monocytes % (auto) 12.4 %; Neutrophils # (auto) 3.08 K/uL (1.40-6.50); Neutrophils % (auto) 69.5 %; Platelet Count 294 K/uL (130-400); RDW Coefficient of Variation 14.5 % (11.5-14.5); Red Blood Count 3.83 M/uL (4.20-5.40); White Blood Count 4.43 K/ul (4.8-10.8)
[2024-02-26 18:51] LABS: Alanine Aminotransferase 15 U/L (7-52); Albumin Globulin Ratio 1.3 (0.9-2); Alkaline Phosphatase 87 U/L (34-104); Anion Gap 7 (3-11); Aspartate Aminotransferase 17 U/L (13-39); BUN Creatinine Ratio 22.5 (10-20); Bilirubin,Total 0.5 mg/dl (0.2-1.0); Blood Urea Nitrogen 32 mg/dl (6-23); Carbon Dioxide 23 mmol/L (21-32); Chloride 96 mmol/L (98-107); Est GFR (African American) 38.1 ml/min; Est GFR (Non-African American) 32.9 ml/min; Globulin 3.2 gm/dl (2.5-4.0); Glucose 91 mg/dl (70-99(Fasting)); Potassium 4.7 mmol/L (3.5-5.1); Sodium 126 mmol/L (136-145); Total Protein 7.2 gm/dl (6.0-8.3)
[2024-02-26 18:57] LABS: Troponin I High Sensitivity 12.6 pg/ml (0-14)
[2024-02-26 19:02] LABS: Partial Thromboplastin Ratio 1.2; Partial Thromboplastin Time 31 Seconds (21-31); Prothrombin Time 10.5 Seconds (9.0-12.0)
--- NOTE | 2024-02-26 19:42 | Emergency Department Note ---
Impression & Plan Acute hyponatremia, Cellulitis, RUSTY (acute kidney injury), Post-operative pain ED Provider Note NAME: VLADIMIR AWAD AGE: 88 SEX: F : 1935 ARRIVES VIA: Walk-In INFORMANT: Patient, ED PROVIDER(S): Reji Bourgeois DO CHIEF COMPLAINT: Shoulder pain HPI: Is an 88-year-old female who presented to the emergency department for an evaluation of shoulder pain. The patient is postoperative shoulder pain she presented because she is having worsening swelling and cellulitis in her lower extremities. The patient denies having any fever. She denies having any hemoptysis. She has been on Bactrim and Keflex which she has been taking. She called her primary care physician as well as her primary orthopedic doctor and was referred to the emergency department for further evaluation. She complains of generalized weakness. She denies having any abdominal pain or vomiting. ROS: See above HPI for pertinent positives & negatives. A total of 10 systems reviewed and were otherwise negative. PAST MEDICAL HISTORY: See Below PAST SURGICAL HISTORY: See Below FAMILY HISTORY: See Below SOCIAL HISTORY: See Below HOME MEDICATIONS: See Below ALLERGIES: See Below VITALS: See Below PHYSICAL EXAMINATION: GENERAL: The patient is awake alert. She is somewhat anxious appearing. EYES: The conjunctivae are clear. The pupils are round and reactive. EARS, NOSE, MOUTH AND THROAT: The nose is without any evidence of any deformity. NECK: The neck is nontender and supple. RESPIRATORY: Normal respiratory effort is noted there is no evidence of wheezing rhonchi or rales CARDIOVASCULAR: Regular rate and rhythm noted there no murmurs rubs or gallops normal S1 normal S2. GASTROINTESTINAL: The abdomen is soft. Abdomen is nontender. MUSCULOSKELETAL/EXTREMITIES: Postoperative changes are noted to the anterior left shoulder. There is no swelling or erythema noted. Range of motion testing elicits pain. SKIN: There is bilateral lower extremity swelling and erythema. There is pedal edema bilaterally. NEUROLOGIC: Patient is awake alert and oriented x3 MEDICAL DECISION MAKING: The patient is an 88-year-old female who presented to the emergency department for an evaluation of postoperative pain but also ongoing cellulitis. The patient was seen in our facility recently for cellulitis of her legs. She was started on proper antibiotics and she has been taking these antibiotics as prescribed but she noticed worsening redness in her legs but also pain in her left shoulder where she recently had surgery. The shoulder itself does not appear to have signs of infection. There is no erythema drainage or dehiscence noted over the surgical site. Range of motion testing did elicit pain and she has pain over palpation of left scapula. I discussed the patient's laboratory and radiographic studies with her. Given her findings I also discussed her condition with the on-call [facility] hospitalist. They have agreed to evaluate the patient in the emergency department for further management and disposition. Triage Nursing notes reviewed. Prior medical records reviewed Vital Signs: reviewed and remarkable for elevated blood pressure. Differential diagnosis: Infection, dehydration, metabolic abnormality, hypo/hyperglycemia, electrolyte disturbance, anemia, hypoxia, cardiac sources, intracerebral event, toxicologic, neurologic, as well as other pathologies. ER treatment provided: See below Diagnostics interpreted by me: ECG: EKG was obtained in the emergency department. My interpretation is normal sinus rhythm at 84 bpm. There is no ectopy. Incomplete right bundle branch block pattern was noted. Inferior T wave versions were noted. This was compared to a tracing from February 23, 2024. No changes were noted. Cardiac Monitoring: An order was placed for continuous cardiac monitoring. The monitor shows a rate of 61 bpm with sinus rhythm. Laboratory studies: As stated above and show below. Imaging studies: See below. Radiographic imaging was reviewed by myself Consultation(s): I discussed this case with the [facility] hospitalist group. They have agreed to evaluate the patient in the emergency department. 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 Encounter for pre-operative examination Elevated troponin (Acute) Cellulitis (Acute) Chronic venous insufficiency Rotator cuff arthropathy of left shoulder Cellulitis of right leg (Acute) Cellulitis of right ankle Benign skin lesion of cheek Pes anserine bursitis Edema (Acute) to bilateral LE edema L>R following with vascular surgery- scheduled for upcoming Venaseal before TSA Hypokalemia (Acute) Electrolyte abnormality First degree AV block Chronic 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 Sharp Mildly dilated ascending aorta at 3.9cm per 11/2023 ECHO Restless legs syndrome (Acute) HTN (hypertension) (Chronic) History of colon cancer, stage I (Chronic) 2014- s/p colon resection- no chemo or XRT Frequency of urination and polyuria Chronic Exertional dyspnea (Acute) pt denies any SOB with exertion at this time Eczema of lower extremity Medical History Bacteremia - Admitted to [facility] 12/04/23-12/11/23--admitted for cellulitis/treated- resolved per patient per PAT appt 01/07/24 Surgical History History of thumb surgery right History of cholecystectomy History of cardiac cath (2013) pt states she can't remember this, per Dr. Sharp record no stents History of tubal ligation (1970) History of knee replacement bilateral--left and right knee History of colonoscopy History of cataract surgery (2009) bilateral Family History Father CHF (congestive heart failure) Cardiac arrest Hypertension Mother Cardiac arrest Cardiac disorder Hypertension Stroke Sister Hypertension Stroke Aunt Stomach cancer Other No family history of adverse response to anesthesia Denies family history of Ovarian cancer Prostate cancer Myocardial infarction Breast cancer Bleeding disorder Colorectal cancer Social History Smoking Status: Never smoker Second Hand Exposure: No; Do You Dip or Chew Tobacco: No; Hx Alcohol Use: Yes Alcohol type: wine Hx Substance Use: No Preferred Language: Ethiopian Communication Ability: Effective Visual Impairment: No Limitations Hearing Ability: Hard of Hearing Associate Product Manager Required: No Beliefs That Will Affect Care: None marital status: Current Living Situation: Spouse Current Living Situation Comment: living with current occupational status: retired Feels Safe at Home: Yes Safety Concerns: Feels Safe At This Time Childhood Exposure to Second-Hand Smoke: Yes Dental Care, Regularly: Yes Physical Activity Frequency: Does not Exercise Seatbelt Use: always Sunscreen Use: No Assistive Devices: Glasses and Walker Allergies Allergies Allergy/AdvReac Type Severity Reaction Status Date / Time No Known Allergies Allergy Verified 02/26/24 20:43 Home Meds Home Medications Medication Instructions Recorded Confirmed cyanocobalamin (vitamin B-12) 500 500 mcg PO QAM 05/01/20 02/26/24 mcg tablet triamcinolone acetonide 0.1 % 1 applic topical DAILY PRN Skin 09/25/20 02/26/24 topical cream Irritation cholecalciferol (vitamin D3) 50 2,000 unit PO QAM 02/11/21 02/26/24 mcg (2,000 unit) capsule losartan 100 mg tablet 100 mg PO QAM 02/11/21 02/26/24 zinc gluconate 50 mg tablet 50 mg PO QAM 02/11/21 02/26/24 diphenhydramine HCl 25 mg tablet 25 mg PO HS PRN Sleep 07/16/21 02/26/24 (Benadryl Allergy) escitalopram oxalate 10 mg tablet 10 mg PO QAM Anxiety 09/24/22 02/26/24 aspirin 325 mg tablet 325 mg PO DIRECTED PRN Pain 08/18/23 02/26/24 desonide 0.05 % topical cream 1 applic topical BID PRN Skin 08/18/23 02/26/24 Irritation diclofenac sodium 1 % topical gel 2 g topical QID PRN Pain 08/18/23 02/26/24 hydralazine 25 mg tablet 25 mg PO TID 08/18/23 02/26/24 [id number]-vwa-[id number] 4 mg-folic acid 1 tab PO QAM 08/18/23 02/26/24 200 mcg-vit K 25 mcg-lutein tablet (Centrum Minis Women 50 Plus) psyllium husk 0.52 gram capsule 1.04 g PO QAM 08/18/23 02/26/24 famotidine 10 mg tablet 10 mg PO DAILY PRN 11/20/23 02/26/24 HEARTBURN/INDIGESTION spironolactone 25 mg tablet 25 mg PO QAM 11/20/23 02/26/24 celecoxib 200 mg capsule (Celebrex) 200 mg PO BID PRN Pain 12/29/23 02/26/24 pramipexole 0.5 mg tablet See Rx Instructions .Route .COMPLEX 12/29/23 02/26/24 tramadol 50 mg tablet 50 mg PO DIRECTED PRN Pain 02/23/24 02/26/24 Previous Rx's Medication Instructions Recorded ondansetron 4 mg disintegrating 4 mg PO Q6H PRN nausea and 09/10/22 tablet vomiting #14 tabs cephalexin 500 mg capsule 500 mg PO BID 10 days #20 caps 02/23/24 oxycodone 5 mg tablet 5 mg PO Q6H PRN pain #30 tabs 02/23/24 Results & Data (ED) Vital Signs Vital Signs - 24 hr 02/26/24 17:07 02/26/24 20:02 Temperature 36.6 C Temperature Source Temporal Artery Scan Pulse Rate 85 Respiratory Rate 20 Respiratory Effort / Characteristics Non-Labored Spontaneous Respiratory Depth Normal Blood Pressure 128/74 Blood Pressure Mean 92 Pulse Oximetry 97 96 Oxygen Delivery Method Room Air Room Air Sepsis Recent Fever Within 48 Hours No Sepsis New/Unexplained Change in Mental Status No Sepsis Action Taken by Nursing No Action Required Home Medications Current Medication List: was personally reviewed by me Laboratory Data Attestation: I reviewed the patient's lab results. 02/26/24 17:59 02/26/24 17:59 Lab Results 02/26/24 Range/Units 17:59 WBC 4.43 L (4.8-10.8) K/ul RBC 3.83 L (4.20-5.40) M/uL Hgb 11.3 L (12.0-16.0) g/dl Hct 33.2 L (37.0-47.0) % MCV 86.7 (80.0-100.0) fL MCH 29.5 (25.0-34.0) pg MCHC 34.0 (32.0-36.0) g/dL RDW Std Deviation 46.0 (36.4-46.3) fL RDW Coeff of Xavier 14.5 (11.5-14.5) % Plt Count 294 (130-400) K/uL MPV 8.9 L (9.4-12.4) fL Immature Gran % (Auto) 0.5 % Neut % (Auto) 69.5 % Lymph % (Auto) 13.1 % [place] % (Auto) 12.4 % Eos % (Auto) 3.8 % Baso % (Auto) 0.7 % Neut # (Auto) 3.08 (1.40-6.50) K/uL Lymph # (Auto) 0.58 L (1.20-3.40) K/uL [place] # (Auto) 0.55 (0.11-0.59) K/uL Eos # (Auto) 0.17 (0.00-0.50) K/uL Baso # (Auto) 0.03 (0.00-0.20) K/uL Immature Gran # (Auto) 0.02 (0.01-0.20) K/uL PT 10.5 (9.0-12.0) Seconds INR 1.0 (0.9-1.1) APTT 31 (21-31) Seconds PTT Ratio 1.2 Sodium 126 L (136-145) mmol/L Potassium 4.7 (3.5-5.1) mmol/L Chloride 96 L (98-107) mmol/L Carbon Dioxide 23 (21-32) mmol/L Anion Gap 7 (3-11) BUN 32 H (6-23) mg/dl Creatinine 1.42 H (0.6-1.2) mg/dl Est Cr Clr Drug Dosing Not Reportable Est GFR ( Amer) 38.1 ml/min Est GFR (Non-Af Amer) 32.9 ml/min BUN/Creatinine Ratio 22.5 H (10-20) Glucose 91 (70-99(Fasting)) mg/dl Osmolality 274 L (280-300) mOsm/kg Calcium 10.0 (8.6-10.3) mg/dl Total Bilirubin 0.5 (0.2-1.0) mg/dl AST 17 (13-39) U/L ALT 15 (7-52) U/L Alkaline Phosphatase 87 (34-104) U/L Troponin I High Sens 12.6 (0-14) pg/ml C-Reactive Protein 4.00 H (0-0.5) mg/dl Total Protein 7.2 (6.0-8.3) gm/dl Albumin 4.0 (3.4-5.0) gm/dl Globulin 3.2 (2.5-4.0) gm/dl Albumin/Globulin Ratio 1.3 (0.9-2) Procalcitonin 0.20 (0-0.5) ng/ml Administered Medications Diclofenac Sodium (Diclofenac Sod 1% Gel 100 Gm Tube) 2 gm EXT QID PRN; Protocol PRN Reason: Pain Left Shoulder Stop: 03/27/24 21:52 Last Admin: 02/26/24 22:41 Dose: 2 gm Documented By: MORENO Sodium Chloride (Nss) 1,000 mls @ 80 mls/hr IV .[id number] Stop: 02/27/24 10:29 Last Admin: 02/26/24 22:41 Dose: 80 mls/hr Documented By: MORENO Oxycodone HCl (Oxycodone Hcl Ir 5 Mg Tab (Immediate Release)) 5 mg PO Q6H PRN PRN Reason: pain Stop: 03/11/24 21:52 Last Admin: 02/26/24 22:09 Dose: 5 mg Documented By: MORENO Discontinued Medications Sodium Chloride (Nss) 500 mls @ 999 mls/hr IV .Q31M ONE Stop: 02/26/24 20:01 Last Infusion: 02/26/24 20:52 Dose: Infused Documented By: Admin: 02/26/24 20:16 Dose: 999 mls/hr Documented By: RYAN Ceftriaxone Sodium (Rocephin) 2,000 mg in 50 mls @ 100 mls/hr IV NOW STA Stop: 02/26/24 20:17 Last Infusion: 02/26/24 20:52 Dose: Infused Documented By: Admin: 02/26/24 20:16 Dose: 100 mls/hr Documented By: RYAN Morphine Sulfate (Morphine Sulfate 4 Mg/Ml 1 Ml Carp\Vial) 4 mg IV NOW STA Stop: 02/26/24 20:20 Last Admin: 02/26/24 20:26 Dose: 4 mg Documented By: CHRISTOPHER Ondansetron HCl (Ondansetron Inj 2 Mg/Ml 2 Ml Vial) 4 mg IV NOW STA Stop: 02/26/24 20:20 Last Admin: 02/26/24 20:26 Dose: 4 mg Documented By: CHRISTOPHER Imaging Data Attestation: I personally reviewed and interpreted this imaging study as follows: My Impression: 1 view chest x-ray was obtained in the emergency department. My interpretation is no definite infiltrate or free air, final report below. Radiologist's Impression: Chest X-Ray 02/26/24 17:11 XR chest 1V not portable CLINICAL HISTORY: Chest pain, nonspecific TECHNIQUE: Single frontal radiograph of the chest was obtained. Comparison: Comparison is made to chest radiograph 01/07/2024 FINDINGS: Bilateral reverse arthroplasties are seen in the shoulders. Cardiomegaly is noted. The lungs are clear. No evidence of pleural effusion or pneumothorax. IMPRESSION: No acute chest disease. Cardiomegaly is noted. ACT 112: Negative or not required by law. Electronically signed by: Israel Dale M.D. 02/26/2024 5:59 PM Discharge Plan Visit Data Chief Complaint: Arm Pain Stated Complaint: LT ARM PAIN ED Provider: Reji Bourgeois Discharge Problem: Acute hyponatremia, Cellulitis, RUSTY (acute kidney injury), Post-operative pain Patient Disposition: Admitted As Inpatient Discharge Instructions Interventions: ED Discharge Assessment Last Done: 02/26/24 21:30 Discharge Problem: Cellulitis Qualifiers: Site of cellulitis: extremity Site of cellulitis of extremity: lower extremity Laterality: unspecified laterality Qualified Code(s): L03.119 - Cellulitis of unspecified part of limb
[2024-02-26] MEDS: cefTRIAXone SODIUM 2,000 MG/50 ML BAG IV STA (20:16)
[2024-02-26] MEDS: SODIUM CHLORIDE 0.9% 500 ML IV ONE (20:16)
[2024-02-26] MEDS: ONDANSETRON INJ 2 MG/ML 2 ML VIAL IV STA (20:26)
[2024-02-26] MEDS: MoRPHine SULFATE 4 MG/ML 1 ML CARP\\VIAL IV STA (20:26)
--- NOTE | 2024-02-26 20:35 | History & Physical Report ---
Date of Service February 26, 2024 Assessment & Plan (1) Acute hyponatremia: Plan: - Na= 126 on admission, serum osm, urine osm/NA pending - likely multifactorial in the setting of recent Bactrim use and hypovolemia - s/p 500ml NSS in ED, will give an additional 1L @ 80ml/hr - repeat qAM (2) RUSTY (acute kidney injury): Plan: - likely secondary to recent Bactrim use/hypovolemia - fluids as per above - trend qAM (3) Cellulitis: Plan: - B/L cellulitis vs chronic venous insufficiency - Venous Doppler from 02/24 without DVT - no leukocytosis, procal= 0.2, afebrile, blood cultures from 02/24 without growth after 48 hours; repeat pending - chronic venous stasis likely larger contributing factor - s/p ceftriaxone in the ED; plan to continue (4) Chronic venous insufficiency: Plan: As per above (5) Post-operative pain: Plan: - notes left shoulder/back pain in the setting of recent surgery - increased pain after PT yesterday - incision site without signs of infection, majority of pain in scapula; not shoulder joint - no leukocytosis, procal normal; no signs of acute infection - continue oxycodone prn, Tylenol prn, heat - Repeat XR shoulder (6) HTN (hypertension): Plan: - continue hydralazine; hold losartan, spironolactone in the setting of RUSTY (7) Restless legs syndrome: Plan: - continue pramipexole Plan Diet: regular Code: Full VTE Prophylaxis: Heparin History of Present Illness Primary Care Provider: Makayla Adan 88 year old female with a past medical history of left shoulder replacement 01/2024, cellulitis B/L LE, polyarthritis, restless leg syndrome, HTN, chronic venous insufficiency presenting with concern for increased left shoulder pain and B/L LE edema/erythema. Was seen in the ED on 02/22 with concern for B/L cellulitis. Has been on Bactrim since 02/16 for cellulitis, Keflex was added 02/22. notes some improvement in redness. States that LE edema is at her baseline, given her chronic venous insufficiency. Denies fever/chills, dyspnea, chest pain. She had a left reverse shoulder arthroplasty on 02/04. Has had significant pain since, was taking tramadol, but was started on oxycodone at her ortho f/u 02/22. Notes that she at PT yesterday with new exercises and today has increased shoulder pain. Notes that the majority of her pain is over her left scapula. Still using sling for shoulder and has limited ROM. ED Course Significant for: Na= 126, Creatine= 1.42 (baseline 0.8). S/p 500mL NSS, 2g ceftriaxone, 4mg morphine, 4mg Zofran. Allergies Allergy/AdvReac Type Severity Reaction Status Date / Time No Known Allergies Allergy Verified 02/26/24 20:43 Home Medications Medication Instructions Recorded Confirmed Type cyanocobalamin (vitamin B-12) 500 500 mcg PO QAM 05/01/20 02/26/24 History mcg tablet triamcinolone acetonide 0.1 % 1 applic topical DAILY PRN Skin 09/25/20 02/26/24 History topical cream Irritation cholecalciferol (vitamin D3) 50 2,000 unit PO QAM 02/11/21 02/26/24 History mcg (2,000 unit) capsule losartan 100 mg tablet 100 mg PO QAM 02/11/21 02/26/24 History zinc gluconate 50 mg tablet 50 mg PO QAM 02/11/21 02/26/24 History diphenhydramine HCl 25 mg tablet 25 mg PO HS PRN Sleep 07/16/21 02/26/24 History (Benadryl Allergy) ondansetron 4 mg disintegrating 4 mg PO Q6H PRN nausea and 09/10/22 02/26/24 Rx tablet vomiting #14 tabs escitalopram oxalate 10 mg tablet 10 mg PO QAM Anxiety 09/24/22 02/26/24 History aspirin 325 mg tablet 325 mg PO DIRECTED PRN Pain 08/18/23 02/26/24 History desonide 0.05 % topical cream 1 applic topical BID PRN Skin 08/18/23 02/26/24 History Irritation diclofenac sodium 1 % topical gel 2 g topical QID PRN Pain 08/18/23 02/26/24 History hydralazine 25 mg tablet 25 mg PO TID 08/18/23 02/26/24 History bvlopzai-qde-qzun 4 mg-folic acid 1 tab PO QAM 08/18/23 02/26/24 History 200 mcg-vit K 25 mcg-lutein tablet (Centrum Minis Women 50 Plus) psyllium husk 0.52 gram capsule 1.04 g PO QAM 08/18/23 02/26/24 History famotidine 10 mg tablet 10 mg PO DAILY PRN 11/20/23 02/26/24 History HEARTBURN/INDIGESTION spironolactone 25 mg tablet 25 mg PO QAM 11/20/23 02/26/24 History celecoxib 200 mg capsule (Celebrex) 200 mg PO BID PRN Pain 12/29/23 02/26/24 History pramipexole 0.5 mg tablet See Rx Instructions .Route .COMPLEX 12/29/23 02/26/24 History cephalexin 500 mg capsule 500 mg PO BID 10 days #20 caps 02/23/24 02/26/24 Rx oxycodone 5 mg tablet 5 mg PO Q6H PRN pain #30 tabs 02/23/24 02/26/24 Rx tramadol 50 mg tablet 50 mg PO DIRECTED PRN Pain 02/23/24 02/26/24 History 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 Encounter for pre-operative examination Elevated troponin (Acute) Cellulitis (Acute) Chronic venous insufficiency Rotator cuff arthropathy of left shoulder Cellulitis of right leg (Acute) Cellulitis of right ankle Benign skin lesion of cheek Pes anserine bursitis Edema (Acute) to bilateral LE edema L>R following with vascular surgery- scheduled for upcoming Venaseal before TSA Hypokalemia (Acute) Electrolyte abnormality First degree AV block Chronic 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 Sharp Mildly dilated ascending aorta at 3.9cm per 11/2023 ECHO Restless legs syndrome (Acute) HTN (hypertension) (Chronic) History of colon cancer, stage I (Chronic) 2014- s/p colon resection- no chemo or XRT Frequency of urination and polyuria Chronic Exertional dyspnea (Acute) pt denies any SOB with exertion at this time Eczema of lower extremity Medical History Bacteremia - Admitted to [facility] 12/04/23-12/11/23--admitted for cellulitis/treated- resolved per patient per PAT appt 01/07/24 Surgical History History of thumb surgery right History of cholecystectomy History of cardiac cath (2013) pt states she can't remember this, per Dr. Sharp record no stents History of tubal ligation (1970) History of knee replacement bilateral--left and right knee History of colonoscopy History of cataract surgery (2009) bilateral Family History Father CHF (congestive heart failure) Cardiac arrest Hypertension Mother Cardiac arrest Cardiac disorder Hypertension Stroke Sister Hypertension Stroke Aunt Stomach cancer Other No family history of adverse response to anesthesia Denies family history of Ovarian cancer Prostate cancer Myocardial infarction Breast cancer Bleeding disorder Colorectal cancer Social History Smoking Status: Never smoker Second Hand Exposure: No; Do You Dip or Chew Tobacco: No; Hx Alcohol Use: Yes Alcohol type: wine Hx Substance Use: No Preferred Language: Hungarian Communication Ability: Effective Visual Impairment: No Limitations Hearing Ability: Hard of Hearing Creative Project Manager Required: No Beliefs That Will Affect Care: None marital status: Current Living Situation: Spouse Current Living Situation Comment: living with current occupational status: retired Feels Safe at Home: Yes Safety Concerns: Feels Safe At This Time Childhood Exposure to Second-Hand Smoke: Yes Dental Care, Regularly: Yes Physical Activity Frequency: Does not Exercise Seatbelt Use: always Sunscreen Use: No Assistive Devices: Glasses and Walker Review of Systems Review of Systems: As per above Physical Exam Physical Exam: Constitutional: well-appearing, no acute distress HEENT: NCAT, no conjunctival injection CV: regular rhythm, no murmur appreciated, extremities well-perfused, no 2+ LE edema B/L to knees Resp: CTABL, no wheezes/rales/rhonchi appreciated, no increased work of breathing GI: soft, nondistended, nontender MSK: no gross deformities appreciated Skin: warm, dry, no rash appreciated; B/L LE with erythema to knee, worse anteriorly compared to posteriority. No open wounds. Neuro: alert, oriented, no focal neurologic deficit appreciated Results & Data Results & Data Vital Signs (Past 12 Hours) Vital Signs Temp Pulse Resp BP Pulse Ox O2 Del Method 02/26/24 20:02 96 Room Air 02/26/24 17:07 36.6 C 85 20 128/74 97 Room Air Supervising Physician Co-Signing Physician Notes Attending addendum: I have physically seen this patient, have supervised the medical residents act ivities, and agree with the H&P unless as otherwise noted. Assessment and Plan: Acute hyponatremia/RUSTY- Sodium 126, with serum and urine osmolality pending Creatinine 1.42, with baseline 0.87 Likely secondary to addition of Bactrim as an outpatient to losartan and spironolactone, all of which will be held Status post 500 mL normal saline bolus from the ED NSS at 80 mL/h Recheck laboratories in a.m. Cellulitis bilateral lower extremities/chronic venous insufficiency- Venous Doppler 02/24 negative Ceftriaxone 2 g IV daily Bactrim discontinued as noted above Hypertension- Continue hydralazine Hold losartan and spironolactone as noted above RLS- Continue pramipexole (3) Cellulitis Laterality: unspecified laterality Site of cellulitis: extremity Site of cellulitis of extremity: lower extremity Qualified Code(s): L03.119 - Cellulitis of unspecified part of limb
[2024-02-26] MEDS ORDERED: PRAMIPEXOLE DIHYDROCHLO 0.5 MG TAB PO SCH (21:53)
[2024-02-26] MEDS ORDERED: FAMOTIDINE 10 MG TABLET PO PRN (21:53)
[2024-02-26] MEDS: oxyCODONE HCL IR 5 MG TAB (IMMEDIATE RELEASE) PO PRN (22:09)
[2024-02-26] MEDS: SODIUM CHLORIDE 0.9% 1,000 ML IV SCH (22:41)
[2024-02-26] MEDS: DICLOFENAC SOD 1% GEL 100 GM TUBE EXT PRN (22:41)
[2024-02-27 00:59] LABS: Appearance Urine Clear (Clear); Bilirubin Urine Negative (Negative); Blood Urine Negative (Negative); Color Urine Yellow; Glucose Urine UA Negative (Negative); Ketones Urine Negative (Negative); Leukocyte Esterase Urine Negative (Negative); Nitrite Urine Negative (Negative); Protein Urine Negative (Negative); Specific Gravity Urine 1.011 (1.000-1.030); Urobilinogen Urine Negative (Negative); pH Urine 5.5 (4.5-7.5)
[2024-02-27] MEDS: ACETAMINOPHEN 500 MG TAB PO PRN (04:18)
[2024-02-27 06:44] LABS: Albumin Globulin Ratio 1.3 (0.9-2); Albumin Level 3.5 gm/dl (3.4-5.0); BUN Creatinine Ratio 24.8 (10-20); Bilirubin,Total 0.3 mg/dl (0.2-1.0); Calcium 9.2 mg/dl (8.6-10.3); Creatinine Clr Calc Pharmacy 33.2 ml/min; Est GFR (African American) 48.2 ml/min; Est GFR (Non-African American) 41.6 ml/min; Globulin 2.7 gm/dl (2.5-4.0); Magnesium 1.9 mg/dl (1.7-2.4); Total Protein 6.2 gm/dl (6.0-8.3)
[2024-02-27 06:55] LABS: Basophils # (auto) 0.02 K/uL (0.00-0.20); Basophils % (auto) 0.7 %; Eosinophils # (auto) 0.27 K/uL (0.00-0.50); Eosinophils % (auto) 9.3 %; Hematocrit (blood only) 31.4 % (37.0-47.0); Hemoglobin 10.3 g/dl (12.0-16.0); Immature Granulocytes # (auto) 0.01 K/uL (0.01-0.20); Immature Granulocytes % (auto) 0.3 %; Lymphocytes # (auto) 0.63 K/uL (1.20-3.40); Lymphocytes % (auto) 21.8 %; Mean Corpuscular Hemoglobin 28.4 pg (25.0-34.0); Mean Corpuscular Hgb Conc 32.8 g/dL (32.0-36.0); Mean Corpuscular Volume 86.5 fL (80.0-100.0); Monocytes # (auto) 0.47 K/uL (0.11-0.59); Monocytes % (auto) 16.3 %; Neutrophils # (auto) 1.49 K/uL (1.40-6.50); Neutrophils % (auto) 51.6 %; Platelet Count 262 K/uL (130-400); RDW Coefficient of Variation 14.5 % (11.5-14.5); RDW Standard Deviation 46.1 fL (36.4-46.3); Red Blood Count 3.63 M/uL (4.20-5.40); White Blood Count 2.89 K/ul (4.8-10.8)
--- NOTE | 2024-02-27 07:54 | XRay Report ---
XR shoulder LT min 2V routine HISTORY: 88 years-old Female post op pain shoulder arthroplasty COMPARISON: 02/05/2024 TECHNIQUE: 3 views of the left shoulder FINDINGS: Unchanged alignment of the reverse shoulder arthroplasty. No acute fracture or dislocation. Unchanged loose body in the subscapularis recess. There is nonspecific soft tissue swelling surrounding the sh oulder. IMPRESSION: 1. No acute fracture or dislocation. 2. Unremarkable appearance of the reverse shoulder arthroplasty. ACT 112: Negative or not required by law. The above report was generated using voice recognition software. It may contain grammatical, syntax o r spelling errors. Electronically signed by: Mendoza Boyer M.D. 02/27/2024 7:52 AM
[2024-02-27] MEDS: HEPARIN SOD 5,000 UNIT/0.5 ML VIAL SQ SCH (08:03)
[2024-02-27] MEDS: CHOLECALCIFEROL 25 MCG (1000 UNITS) TAB PO SCH (08:03)
[2024-02-27] MEDS: ZINC SULFATE 220 MG CAPSULE PO SCH (08:04)
[2024-02-27] MEDS: hydrALAZINE HCL 25 MG TAB PO SCH (08:04)
[2024-02-27] MEDS: ESCITALOPRAM OXALATE 10 MG TAB PO SCH (08:05)
[2024-02-27] MEDS: CYANOCOBALAMIN (B-12) 500 MCG TABLET PO SCH (08:05)
--- NOTE | 2024-02-27 08:14 | Hospitalist Progress Note ---
Date of Service February 27, 2024 Assessment & Plan (1) Acute hyponatremia: Plan: - Na= 126 on admission --> 130 on recheck - likely multifactorial in the setting of recent Bactrim use and altered fluid distribution - s/p 1.5L NSS - repeat lab check qAM (2) RUSTY (acute kidney injury): Plan: - Cr 1.42 on admission -> 1.17 on recheck s/p fluid resuscitation - likely secondary to recent Bactrim use/volume contraction - repeat lab check qAM (3) Cellulitis: Plan: - B/L cellulitis vs venous stasis changes - Venous Doppler from 02/24 without DVT - no leukocytosis, procal negative, afebrile, blood cultures from 02/22 negative after 48 hours; repeat cx drawn, pending - Continue Ceftriaxone (day 2) (4) Chronic venous insufficiency: Plan: As per above (5) Post-operative pain: Plan: - left shoulder/back pain in the setting of recent surgery - incision site without signs of infection, majority of pain in scapula; not shoulder joint - no leukocytosis, procal normal; no signs of acute infection - Repeat XR shoulder negative for acute pathology - Continue pain control, will give scheduled Tylenol, Lidocaine patch, oxycodone prn, heat (6) HTN (hypertension): Plan: - continue hydralazine; hold losartan, spironolactone in the setting of RUSTY (7) Restless legs syndrome: Plan: - continue pramipexole Plan Diet: regular Code: Full VTE Prophylaxis: Heparin Admission and Anticipated Discharge Date Admission Date: February 26, 2024 Supervising Physician Co-Signing Physician Notes Attending attestation Pt seen and examined in concert with Dr. Brownlee. In agreement with the documented findings as noted in the resident documentation with any exceptions or additions as noted here. Ongoing subacute left shoulder pain postoperatively well controlled with positioning and benefit from opioid medications. On examination, S1/S2 nl RRR no MCG. CTAB. Abd NT/ND BS+ve. Bilateral LE to the proximal phillips with intense rubor and TTP c/w cellulitis, though very definitely a venous stasis component as well. Hyponatremia - improving w/ fluid restriction and POI. Monitor BMP daily RUSTY - improving, trend BMP. Celuliitis, bilateral - though there is likely a component of venous stasis, there is warmth, tenderness and significant rubor. Continue abx therapy and monitor in relation to border lines. Else see resident documentation as noted. Subjective Patient evaluated at bedside this morning, notes that her shoulder pain is currently not too bad as long as she does not move it, state that it reaches 10/10 with movement. Regarding LEs, patient states that she has chronic swelling and venous stasis changes - however, current presentation is more erythematous than baseline, also having some pain with palpation. Daughter notes that patient has had bilateral LE cellulitis diagnosed on 2 previous occasions. Pt otherwise denies fever/chills, SOB,CP. Review of Systems Review of Systems: as per HPI Physical Exam Physical Exam: General: Alert and oriented. No acute distress Cardiac: Regular rate and rhythm, no murmurs appreciated Respiratory: Lungs clear to auscultation bilaterally, No increased work of breathing Abdominal: Soft, non-tender, non-distended. Bowel sounds present. Extremities:+Bilateral LEs erythematous below the knees with symmetrical degrees of swelling, slightly warm to touch, borders marked without signs of progression. Results & Data Results & Data Vital Signs (Past 12 Hours) Vital Signs Temp Pulse Pulse Pulse Resp BP Pulse Ox 02/27/24 07:19 36.4 C L 70 18 138/75 96 02/26/24 23:15 02/26/24 23:15 36.6 C 61 16 151/82 H 97 02/26/24 21:48 36.4 C L 74 22 154/79 H 100 02/26/24 21:30 02/26/24 20:33 73 18 154/97 H 94 02/26/24 20:31 77 O2 Del Method 02/27/24 07:19 Room Air 02/26/24 23:15 Room Air 02/26/24 23:15 Room Air 02/26/24 21:48 Room Air 02/26/24 21:30 Room Air 02/26/24 20:33 Room Air 02/26/24 20:31 Resident Activity Tracking Resident Involvement: Resident Care Provided Care Provided: Adult Hospital Medicine (3) Cellulitis Laterality: unspecified laterality Site of cellulitis: extremity Site of cellulitis of extremity: lower extremity Qualified Code(s): L03.119 - Cellulitis of unspecified part of limb
--- NOTE | 2024-02-27 10:38 | Electrocardiogram Report ---
Test Reason : Blood Pressure : / mmHG Vent. Rate : 084 BPM Atrial Rate : 084 BPM P-R Int : 238 ms QRS Dur : 098 ms QT Int : 364 ms P-R-T Axes : 064 061 -36 degrees QTc Int : 430 ms Sinus rhythm with sinus arrhythmia with 1st degree A-V block Cannot rule out Anterior infarct , age undetermined T wave abnormality, consider inferolateral ischemia Abnormal ECG When compared with ECG of 23-FEB-2024 16:19, HR has decreased Confirmed by Jacob Rangel ([id number]) on 02/27/2024 10:38:26 AM Referred By: REFERRED SELF Confirmed By:Jacob Rangel
[2024-02-27] MEDS: PRAMIPEXOLE DIHYDROCHLO 0.5 MG TAB PO SCH ×2 (12:05→18:06)
[2024-02-27] MEDS: LIDOCAINE 5% 1 PATCH TD SCH (13:41)
[2024-02-27] MEDS: ACETAMINOPHEN 500 MG TAB PO SCH (13:41)
[2024-02-27] MEDS: POLYETHYLENE (MIRALAX) 17 GM PACK PO PRN (16:28)
[2024-02-27] MEDS: diphenhydrAMINE Capsule 25 MG CAP PO ONE (19:19)
[2024-02-27] MEDS: cefTRIAXone SODIUM 2,000 MG/50 ML BAG IV SCH (20:36)
--- OUTSIDE RECORDS SUMMARY | 2024-02-27 22:51 | External Medical Summary | Continuity of Care Document ---
Author Name Unknown Organization [address] Address [address] [place], [place] [id number] Care Team Providers Care Power Generation Technician Name Role Phone Makayla Adan Primary Care Physician [phone] Encounter [facility] [id number] Date(s): 02/23/24 - 02/23/[address] [address] [phone] Encounter Diagnosis Cellulitis(Discharge Diagnosis) - 02/23/24 Discharge Disposition: Home or Self Care Attending Physician: STELLA Adan Tara Referring Physician: STELLA Adan Tara Allergies, Adverse Reactions, Alerts No Known Medication Allergies Assessment and Plan Extracted from: Title:cellulitis Author:STELLA Adan Tara Date: 1.Cellulitis Acute/Chronic: acute Goal:Resolution/ control Status:ongoing Data: records/pt report Plan: Cellulitis did look better day two of abx but today it is looking worse and she may have cellulitis developing in her left leg. I would recommend ER visit for labs and if any imaging needed and possible IV abx. Daughter and her are in agreement. Declined EMS transport. time spent reviewing chart, face to face visit, ordersand documentation: 24 min Immunizations Given and Recorded Vaccine Date [...] 9Result Comment: 2020-10-25: Historical information-source unspecified Medications Bactrim DS 800 mg-160 mg oral tablet Start: 02/17/24 4:49:00 PM EDT, 1 tab, PO, bid, Disp# 20 tab, X 10 day, Stop: 02/27/24 4:49:00 PM EDT,Pharmacy: [facility] Start Date: 02/17/24 Stop Date: 02/27/24 Status: Ordered Benadryl 25 mg oral capsule Start: 10/25/20 9:44:00 AM EST, 1 cap, PO, tid, PRN: as needed for allergy symptoms Start Date: 10/25/20 Status: Ordered Centrum Women's Start: 10/25/20 9:43:00 AM EST, 1 tab, PO, Daily Start Date: 10/25/20 Status: Ordered Co Q-10 100 mg oral capsule Start: 10/25/20 9:43:00 AM EST, 1 cap, PO, Daily Start Date: 10/25/20 Status: Ordered desonide 0.05% topical cream Start: 06/03/22 10:25:00 AM EDT, 1 appl, topical, bid, Disp# 15 g, Refills: 4, to affected area, Pharmacy: [facility] Start Date: 06/03/22 Status: Ordered escitalopram 10 mg oral tablet Start: 12/29/23 8:04:00 AM EDT, 1 tab, PO, Daily, Disp# 30 tab, Refills: 10, Pharmacy: [facility] Start Date: 12/29/23 Status: Ordered hydrALAZINE 25 mg oral tablet Start: 07/15/23 3:45:00 PM EDT, 1 tab, PO, tid, Disp# 90 tab, Refills: 2, Pharmacy: [facility] Start Date: 07/15/23 Status: Ordered lidocaine-prilocaine 2.5%-2.5% topical cream Start: 11/20/23 5:27:00 PM EST, See Instructions, Disp# 30 g, Refills: 3, apply to affected area bid,Pharmacy: [facility] Start Date: 11/20/23 Status: Ordered losartan 100 mg oral tablet Start: 03/16/23 11:22:00 AM EDT, See Instructions, Disp# 90 tab, Refills: 3, Take 1 tablet by mouth once daily, Pharmacy: [facility] Start Date: 03/16/23 Status: Ordered Metamucil Start: 12/12/22 1:24:00 PM EST Start Date: 12/12/22 Status: Ordered Pepcid AC Maximum Strength 20 mg oral tablet Start: 10/25/20 9:44:00 AM EST, 1 tab, PO, Daily, if needed Start Date: 10/25/20 Status: Ordered pramipexole 0.5 mg oral tablet Start: 08/26/23 3:42:00 PM EST, See Instructions, 3 tablets by mouth at noon and 2 tablets at 6pm Start Date: 08/26/23 Status: Ordered PreserVision AREDS Start: 12/12/22 1:24:00 PM EST Start Date: 12/12/22 Status: Ordered spironolactone 50 mg oral tablet Start: 07/14/23 7:54:00 PM EDT, 1 tab, PO, Daily, Disp# 30 tab, Refills: 11, Note to Pharmacy: disregard bid rx, Pharmacy: [facility] Start Date: 07/14/23 Stop Date: 07/08/24 Status: Ordered traMADol 50 mg oral tablet Start: 10/24/21 1:20:00 PM EST, See Instructions, take 3 times daily as needed Start Date: 10/24/21 Status: Ordered triamcinolone 0.1% topical cream Start: 08/28/22 10:14:00 AM EST, 1 appl, topical, bid, Disp# 60 g, Refills: 3, Pharmacy: [facility] Start Date: 08/28/22 Status: Ordered unknown medication Start: 10/25/20 9:42:00 AM EST, See Instructions, trubiotics one daily Start Date: 10/25/20 Status: Ordered Vitamin B12 50 mcg oral tablet Start: 05/30/21 9:11:00 AM EDT, 1 tab, PO, Daily Start Date: 05/30/21 Status: Ordered Vitamin D3 Start: 07/04/21 3:55:00 PM EDT, 2,000 units in am Start Date: 07/04/21 Status: Ordered zinc (as gluconate) 50 mg oral tablet Start: 10/25/20 9:43:00 AM EST, one daily Start Date: 10/25/20 Status: Ordered Zofran 4 mg oral tablet Start: 04/15/23 4:22:00 PM EDT, 1 tab, PO, tid, Disp# 15 tab, Refills: 3, PRN: as needed for nausea/vomiting, [facility] Start Date: 04/15/23 Status: Ordered Mental Status 02/23/24 Barriers to Learning one year None evide nt Mandatory Health Literacy Documentation Yes Health Literacy Communication Barriers N ever Primary Language Macedonian Problem List Condition Confirmation Course Effective Dates [...] polyneuropathy Confirmed Active Restless leg Confirmed Active Shoulder pain Confirmed Active Spinal stenosis Confirmed Active Diagnosis Diagnosis Type Effective Dates Health Status Clini rupal Service Informant Cellulitis Discharge Diagnosis 02/23/24 Procedures Procedure Date Related Diagnosis Body Site Status Reverse total shoulder arthr oplasty (Left) 02/05/24 Completed Procedure 1 01/20/24 Completed Intravitreal steroid injection 2 04/23/23 Completed Lumbar epidural steroid injection 02/17/23 Completed Eye injection 3 01/13/23 Completed Eye injection 4 12/2022 Completed Eye examination 5 11/04/[address] 6 09/10/22 Completed Lumbar epidural steroid injection 05/20/[address] of abdomen and pelvis wit h intravenous contrast 7 5/20/22 Completed Echocardiogram 8 06/28/21 Complete d Lumbar epidural steroid injection 35 Completed X-ray 9 Completed 1VenaSeal treatment right great saphenous vein. 2avastin 1.25 mg injection left eye 3left eye 4left eye 5intravitreal injection of Avastin 1.25 mg [facility]: 1. There is no hemorrhage, mass effect, or evidence of acute territorial ischemia by CT criteria 2. Unremarkable CT angiogram of the brain 3. Unremarkable angiogram of the neck 71. interval development of acute diverticulitis of the descending colon with pericolonic inflammatory changes and fluid present. no evidence for perforation, abscess or free air 2. large periumbillical hernia with loops of bowel is again seen. no obstruction is identified. 3. additional nonacute findings are delineated in report 8Summary: Left ventricular systolic function is normal. There [...] dilated with a decrease in inspiratory collapse. 9xr ankle rt min 3 v routine impression no acute fracture or dislocation within the rt ankle. Ankle soft tissue swelling. Vital Signs Most recent to oldest [Reference Range]: 1 Patient Weight 89.3 kg (02/23/24 2:26 PM) Temperature [36.5-37.9 DegC] 36.7 DegC (02/23/24 2:26 PM) Heart Rate 94 bpm (02/23/24 2:26 PM) Respiratory Rate 19 br/min (02/23/24 2:26 PM) Blood Pressure 118/68mmHg (02/23/24 2:26 PM) Cuff Pulse Pressure 50 mmHg (02/23/24 2:26 PM) Social History Social History Type Response Smoking Status Never smoked cigaret daryl Sex Female [facility] Outpt Note * STELLA Adan Tara: PERFORM Event Display: [facility] Outpt Note Authored Date: [id number] Chief Complaint F/U cellulitis, still swollen and red. Recently has developed pain in both thighs. Yesterday had numbness in right leg. History of Present Illness Seen6 and 4days ago for cellulitis of right lower ext. She was started on bactrim 6 days ago. When she was seen 4 days ago (2 days after starting abx) cellulitis in right leg was looking better. Less erythema, increase warmth and swelling. Pt with hx of chronic venous insufficiency. She has also had several bouts of cellulitis that have required hospital stay. She has PT for this lymphedema twice a week. No fevers. Today she reports right leg is more painful and both left and right leg are more swollen. Review of Systems Constitutional: No fever, chills, sweats Pulmonary: No shortness of breath, dyspnea with exertion, cough, hemoptysis, wheezing, chest pain. Cardiovascular: No chest pain, palpitations, syncope, edema, cyanosis, claudication, orthopnea.As per HPI Neurologic: No numbness or tingling Physical Exam Vitals & Measurements T:36.7C HR:94(Monitored) RR:19 BP:118/68 SpO2:95% WT:89.3kg WT:89.300kg(Dosing) PHQ2 Data(Data Documented on:02/23/2024 14:26) Emotional health assessment NEGATIVE head- normocephalic Pulmonary- chest expansion symmetric CV (cardiovascular)- RRR extremitiesRight lower ext erythema from foot to upper third of lower leg (below knee). Increase warm and swelling. +3 edema. Left leg mild erythema on left phillips. Increase warmth and +3 edema Neuro:Alert, Oriented Assessment/Plan 1.Cellulitis Acute/Chronic: acute Goal:Resolution/ control Status:ongoing Data: records/pt report Plan:Cellulitis did look better day two of abx but today it is looking worse and she may have cellulitis developing in her left leg. I would recommend ER visit for labs and if any imaging needed and possible IV abx. Daughter and her are in agreement. Declined EMS transport. time spent reviewing chart, face to face visit, ordersand documentation: 24 min Problem List/Past Medical History Ongoing Aortic root dilation Colon cancer Depression Fatigue GERD (gastroesophageal reflux disease) Hypertension Idiopathic polyneuropathy Lower extremity edema LVH (left ventricular hypertrophy) Restless leg Shoulder pain Spinal stenosis Urinary incontinence, mixed Venous insufficiency, peripheral Resolved Chronic back pain Procedure/Surgical History Reverse total shoulder arthroplasty (Left)| Service Date: 4Procedure| Service Date: 01/20/2024Intravitreal steroid injection| Service Date: 04/23/2023Lumbar epidural steroid injection| Service Date: 02/17/2023Eye injection| Service Date: 01/13/2023Eye injection| Service Date: Week of 12/10/2022Ey examination| Service Date: 11/04/2022Head CT| Service Date: 09/10/2022Lumbar epidural steroid injection| Service Date: 05/20/2022T of abdomen and pelvis with intravenous contrast| Service Date: 02/28/2022Echocardiogram| Service Date: 06/28/2021umbar epidural steroid injection| Service Date: 1935X-ray Medications cholecalciferol(Vitamin D3) cyanocobalamin(Vitamin B12 50 mcg oral tablet), 50 mcg= 1 tab, PO, Daily desonide topical(desonide 0.05% topical cream), 1 appl, topical, bid, 4 refills diphenhydrAMINE(Benadryl 25 mg oral capsule), 25 mg= 1 cap, PO, tid, PRN escitalopram(escitalopram 10 mg oral tablet), 1 tab, PO, Daily famotidine(Pepcid AC Maximum Strength 20 mg oral tablet), 20 mg= 1 tab, PO, Daily hydrALAZINE(hydrALAZINE 25 mg oral tablet), 1 tab, PO, tid lidocaine-prilocaine topical(lidocaine-prilocaine 2.5%-2.5% topical cream), See Instructions, 3 refills losartan(losartan 100 mg oral tablet), See Instructions, 3 refills multivitamin with minerals(PreserVision AREDS) multivitamin with minerals(Centrum Women's), 1 tab, PO, Daily ondansetron(Zofran 4 mg oral tablet), 4 mg= 1 tab, PO, tid, PRN, 3 refills pramipexole(pramipexole 0.5 mg oral tablet), See Instructions psyllium(Metamucil) spironolactone(spironolactone 50 mg oral tablet), 50 mg= 1 tab, PO, Daily, 11 refills sulfamethoxazole-trimethoprim(Bactrim DS 800 mg-160 mg oral tablet), 1 tab, PO, bid traMADol(traMADol 50 mg oral tablet), See Instructions [...] the next year) OverDue Adult Influenza Vaccine due04/10/23and every 1year Medicare Annual Wellness Visit due12/13/23and every 1year Due Adult COVID-19 Vaccination due02/23/24Unknown Frequency Adult Social Determinants of Health Screening due02/23/24Unknown Frequency Falls Plan of Care due02/23/24Unknown Frequency Satisfied(in the past 1 year) Satisfied Body Mass Index on02/19/24.Satisfied by YOLANDA Mota Bobbi Electronic Signature on File Electronically Reviewed/Signed by: STELLA Salgado Author Signature Dt/Tm:02/23/2024 03:07 PM Department of Family Medicine TB Patient Care team information Care Team Personnel Name: STELLA Adan Tara Position: Nurse Pract - Family Med Member Role: Primary Care Provider Address: Address: [address] [place] [address], [place] [address] Care Team Related Persons Name: KILO CAMARENA Name: ALMA AWAD Address: [address], [id number]"
[2024-02-28] MEDS: MELATONIN 3 MG TAB PO PRN (02:14)
--- NOTE | 2024-02-28 02:48 | Billing Data ---
Date of Service February 28, 2024 Coding Level of Care Code 58887 INT INP/OBS CARE
[2024-02-28 07:24] LABS: Hematocrit (blood only) 34.1 % (37.0-47.0); Hemoglobin 11.2 g/dl (12.0-16.0); Mean Corpuscular Hemoglobin 28.5 pg (25.0-34.0); Mean Corpuscular Hgb Conc 32.8 g/dL (32.0-36.0); Mean Corpuscular Volume 86.8 fL (80.0-100.0); Mean Platelet Volume 8.9 fL (9.4-12.4); Platelet Count 286 K/uL (130-400); RDW Coefficient of Variation 14.3 % (11.5-14.5); RDW Standard Deviation 46.1 fL (36.4-46.3); Red Blood Count 3.93 M/uL (4.20-5.40)
[2024-02-28 07:33] LABS: BUN Creatinine Ratio 25.3 (10-20); Calcium 9.5 mg/dl (8.6-10.3); Creatinine Clr Calc Pharmacy 44.6 ml/min; Est GFR (African American) 68.9 ml/min; Est GFR (Non-African American) 59.5 ml/min; Potassium 4.8 mmol/L (3.5-5.1)
--- NOTE | 2024-02-28 11:32 | Hospitalist Progress Note ---
Date of Service February 28, 2024 Assessment & Plan (1) Acute hyponatremia: Plan: - Na= 126 on admission --> 130 --> 133 - likely multifactorial in the setting of recent Bactrim use and altered fluid distribution - s/p 1.5L NSS - repeat lab check qAM (2) RUSTY (acute kidney injury): Plan: - Cr 1.42 on admission -> 1.17 -> 0.87 - likely secondary to recent Bactrim use/volume contraction - repeat lab check qAM (3) Cellulitis: Plan: - B/L cellulitis with underlying chronic venous stasis changes - Venous Doppler from 02/24 without DVT - no leukocytosis, procal negative, afebrile, blood cultures from 02/22 negative after 48 hours; repeat cx 02/25 negative at 24 hours - Continue Ceftriaxone (day 3) - likely can be discharged tomorrow if cultures negative at 48 hours, tentative plan to transition to PO doxycycline to complete 10 day course with close outpatient follow up for extension of abx if needed. (4) Chronic venous insufficiency: Plan: As per above (5) Post-operative pain: Plan: - left shoulder/back pain in the setting of recent surgery - incision site without signs of infection, majority of pain in scapula; not shoulder joint - no leukocytosis, procal normal; no signs of acute infection - Repeat XR shoulder negative for acute pathology - Continue pain control with scheduled Tylenol, Lidocaine patch, oxycodone prn, heat - PT/OT evaluations ordered, appreciate recs (6) HTN (hypertension): Plan: - continue hydralazine; hold losartan, spironolactone in the setting of RUSTY (7) Restless legs syndrome: Plan: - continue pramipexole Plan Diet: regular Code: Full VTE Prophylaxis: Heparin Admission and Anticipated Discharge Date Admission Date: February 26, 2024 Supervising Physician Co-Signing Physician Notes Attending attestation Pt seen and examined in concert with Dr. Brownlee. In agreement with the documented findings as noted in the resident documentation with any exceptions or additions as noted here. Ongoing subacute left shoulder pain postoperatively well controlled with positioning and benefit from opioid medications, though exacerbated by errant movement overnight. Subjective improvement in b/l LE redness. On examination, S1/S2 nl RRR no MCG. CTAB. Abd NT/ND BS+ve. Bilateral LE to the proximal phillips - improved intensity of rubor, decreased swelling and TTP compared to yesterday. Cellulitis, bilateral - likely a component of venous stasis - Continue abx therapy and monitor in relation to border lines. Postoperative left shoulder pain - continue pain control. PT/OT consult 2/2 concern for self-care at home. Hyponatremia - resolved. Repeat BMP in AM RUSTY - resolved. Repeat BMP in AM Else see resident documentation as noted. Subjective Patient evaluated at bedside this morning, notes that her shoulder pain was significantly worse last night after she tried to prop herself up in bed using her left arm. Patient states that she thinks her legs look slightly better today, less pain to palpation apart from a couple tender areas on her ankles. Pt otherwise denies fever/chills, SOB,CP. Review of Systems Review of Systems: as per HPI Physical Exam Physical Exam: General: Alert and oriented. No acute distress Cardiac: Regular rate and rhythm, no murmurs appreciated Respiratory: Lungs clear to auscultation bilaterally, No increased work of breathing Abdominal: Soft, non-tender, non-distended. Bowel sounds present. Extremities:+Bilateral LEs erythematous below the knees with symmetrical degrees of swelling, slight impr, slightly warm to touch, borders marked without signs of progression. Results & Data Results & Data Vital Signs (Past 12 Hours) Vital Signs Temp Pulse Resp BP Pulse Ox O2 Del Method 02/28/24 08:43 Room Air 02/28/24 07:49 36.5 C 71 18 168/97 H 94 Room Air Resident Activity Tracking Resident Involvement: Resident Care Provided Care Provided: Adult Hospital Medicine (3) Cellulitis Laterality: unspecified laterality Site of cellulitis: extremity Site of cellulitis of extremity: lower extremity Qualified Code(s): L03.119 - Cellulitis of unspecified part of limb
[2024-02-28] MEDS ORDERED: diphenhydrAMINE Capsule 25 MG CAP PO PRN (17:03)
--- NOTE | 2024-02-29 06:45 | Discharge Summary ---
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 Was seen in the ED on 02/22 with concern for B/L cellulitis. Has been on Bactrim since 02/16 for cellulitis, Keflex was added 02/22. notes some improvement in redness. States that LE edema is at her baseline, given her chronic venous insufficiency. Denies fever/chills, dyspnea, chest pain. She had a left reverse shoulder arthroplasty on 02/04. Has had signi ficant pain since, was taking tramadol, but was started on oxycodone at her ortho f/u 02/22. Notes that she at PT yesterday with new exercises and today has increased shoulder pain. Notes that the majority of her pain is over her left scapula. Still using sling for shoulder and has limited ROM. ED Course Significant for: Na= 126, Creatine= 1.42 (baseline 0.8). S/p 500mL NSS, 2g ceftriaxone, 4mg morphine, 4mg Zofran. Admission Exam Per Admitting Provider Constitutional: well-appearing, no acute distress HEENT: NCAT, no conjunctival injection CV: regular rhythm, no murmur appreciated, extremities well-perfused, no 2+ LE edema B/L to knees Resp: CTABL, no wheezes/rales/rhonchi appreciated, no increased work of breat guillermo GI: soft, nondistended, nontender MSK: no gross deformities appreciated Skin: warm, dry, no rash appreciated; B/L LE with erythema to knee, worse anteriorly compared to posteriority. No open wounds. Neuro: alert, oriented, no focal neurologic deficit appreciated Principal Diagnosis LE Cellulitis vs chronic venous insufficiency Discharge Exam General: Alert and oriented. No acute distress Cardiac: Regular rate and rhythm, no murmurs appreciated Respiratory: Lungs clear to auscultation bilaterally, No increased work of breathing Abdominal: Soft, non-tender, non-distended. Bowel sounds present. Extremities:+Bilateral LEs erythematous below the knees with symmetrical degrees of swelling, slight improvement, slightly warm to touch but largely non-tender to palpation, borders marked without signs of progression. Discharge Data Allergies Allergy/AdvReac Type Severity Reaction Status Date / Time No Known Allergies Allergy Verified 02/26/24 20:43 Consultations 02/26/24 20:19 ED Decision to Admit Stat Hospital Course (1) Acute hyponatremia: - Na= 126 on admission, now resolved (2) Cellulitis: - Questionable B/L cellulitis of LEs, appearance, exam (very minimal tenderness to palpation) and lab findings ( no leukocytosis, procal negative, afebrile, blo od cultures negative) more consistent with chronic venous stasis changes - Venous Doppler from 02/24 negative for DVT - Given uncertainty, treated with IV Ceftriaxone, discharged with rx for Keflex x3 days - recommend close outpatient follow up for ongoing management (3) Chronic venous insufficiency: As per above (4) RUSTY (acute kidney injury): - Cr 1.42 on admission -> 0.95 - likely secondary to recent Bactrim use/volume contraction - Resolved (5) Post-operative pain: - left shoulder/back pain in the setting of recent surgery - incision site without signs of infection, majority of pain in scapula; not shoulder joint - no leukocytosis, procal normal; no signs of acute infection - Repeat XR shoulder negative for acute pathology - Continue pain control as directed by orthopedics, recommend outpatient follow up (6) HTN (hypertension): - continue home meds (7) Restless legs syndrome: - continue pramipexole Total Time Total Time Spent Total Time Spent (In Minutes): <30 Discharge Plan Discharge Items Patient Disposition: Home - Self-Care Reason For Visit: HYPONATREMIA Discharge Diagnosis: Bilateral LE cellulitis Activity: Resume your previous activity Non-emergency contact: Primary Care Provider Call non-emergency contact if: you have any medication questions, your symptoms worsen, your pain is not controlled and you have a fever Follow-up/Referrals: Makayla Adan [Primary Care Provider] - 03/09/24 8:25 am Diet: Regular Addtl Attending Provider Instructions: You were admitted to the hospital with concern for possible bilateral lower extremity cellulitis, though it is very likely that your symptoms are more related to your chronic venous insufficiency. However, because we cannot say with certainty, you were treated with IV antibiotics. Fortunately, the blood cultures that we took were negative, meaning there is no sign of systemic spread of infection beyond your legs. Upon discharge, we recommend continuing oral antibiotics for 3 more days, as directed below. Please follow up with your PCP as soon as possible; they can help determine if your course of antibiotics needs to be extended. Regarding your venous insufficiency, the best way to minimize leg swelling is with activity - other things you can try include keeping your legs elevated or using compression stockings. A discharge summary will be sent to your primary care physician to ensure continuity of care. Please bring this discharge summary with you to your next office appointment so that your provider can review it at that time. Medications: Your medication list has been reviewed and reconciled upon discharge to ensure accuracy and continuity of care. An updated list of all your medications is included with your hospital discharge paperwork. Please review this list closely and make note of any changes to your medications. New medications: Cephalexin: Please take 1 capsule three times daily for days, with first dose starting this evening. Follow up appointments: - Make a follow up appointment with your PCP within the next week. It is very important that you follow up with them shortly after discharge from the hosp ital. - Keep all of your follow up appointments as already scheduled. If you cannot make an appointment, notify your provider. CONTACT YOUR PRIMARY CARE PROVIDER if you experience any of the following: - Difficulty following your treatment plan - Difficulty taking any of your medications CALL 911 OR GO TO THE EMERGENCY DEPARTMENT if you experience any of the following: - Sudden, severe abdominal pain or nausea/vomiting - Severe chest pain or chest pain that radiates to your jaw or arm - Sudden, severe shortness of breath or difficulty breathing Pending Studies at Discharge: No Stand-Alone Forms: My [facility], Smoking Cessation Medications and DC Order Prescriptions: New cephalexin 500 mg capsule 500 mg PO TID 3 Days Qty: 9 0RF Continued diphenhydramine HCl [Benadryl Allergy] 25 mg tablet 25 mg PO HS PRN (Reason: Sleep) escitalopram oxalate 10 mg tablet 10 mg PO QAM triamcinolone acetonide 0.1 % cream 1 applic topical DAILY PRN (Reason: Skin Irritation) cholecalciferol (vitamin D3) 50 mcg (2,000 unit) capsule 2,000 unit PO QAM losartan 100 mg tablet 100 mg PO QAM spironolactone 25 mg tablet 25 mg PO QAM cyanocobalamin (vitamin B-12) 500 mcg tablet 500 mcg PO QAM zinc gluconate 50 mg tablet 50 mg PO QAM oxycodone 5 mg tablet 5 mg PO Q6H PRN (Reason: pain) Qty: 30 0RF ondansetron 4 mg tablet,disintegrating 4 mg PO Q6H PRN (Reason: nausea and vomiting) Qty: 14 0RF desonide 0.05 % Cream 1 applic TOPICAL BID PRN (Reason: Skin Irritation) aspirin 325 mg Tablet 325 mg PO DIRECTED PRN (Reason: Pain) hydralazine 25 mg tablet 25 mg PO TID psyllium husk 0.52 gram Capsule 1.04 g PO QAM diclofenac sodium 1 % Gel 2 g TOPICAL QID PRN (Reason: Pain) Centrum Minis Women 50 Plus 4 mg iron-200 mcg-25 mcg Tablet 1 tab PO QAM famotidine 10 mg tablet 10 mg PO DAILY PRN (Reason: HEARTBURN/INDIGESTION) celecoxib [Celebrex] 200 mg capsule 200 mg PO BID PRN (Reason: Pain) pramipexole 0.5 mg tablet See Rx Instructions .ROUTE .COMPLEX Rx Instructions: TAKES 1.5 MG AT NOON, THEN 1 MG AT 1800. tramadol 50 mg tablet 50 mg PO DIRECTED PRN (Reason: Pain) Rx Instructions: Dx: G60.9 Discontinued cephalexin 500 mg capsule 500 mg PO BID 10 Days Qty: 20 0RF Discharge Orders: Discharge Order (Routine); Ordered 02/29/24 Ordered By: Justin Keith/Other Patient Handouts: Hyponatremia Dc Admission Data Admit Date/Time: 02/26/24 20:30 Attending Provider: Isaias Jon Admit Provider: Sheryl Garcia Primary Care Provider: Makayla Adan Other Providers: Дмитрий Valero Other Interventions: Discharge Summary Assessment (RN) Last Done: 02/29/24 11:57 Supervising Physician Co-Signing Physician Notes I personally examined the patient and verified all mcmahan points of history and exam, discussed case, and agree with decision making with Dr Brownlee feels up to going home. present and feels okay with her going home as well. Answered all questions to the best my ability and to their satisfaction vitals noted, in general she is awake and alert pleasant no distress. HEENT normocephalic atraumatic mucous membranes moist. Bilateral lower extremity venous stasis changes without significant tenderness. No crepitus. No open wounds. Lower extremity venous stasis with possible cellulitishas already been on antibiotics for several days, so hard to rule out that it previously did not look more consistent with cellulitis, but today looks almost entirely consistent with venous stasis changes. Discussed with patient and in regards to venous stasis managementparticularly movement/muscle contraction, elevation, compression. Discussed that it is hard to rule out that there was not a previous infectionand to that end we will finish course of antibiotics, but di scussed my suspicion it may have been venous stasis changes all alongtherefore we will hopefully be able to preclude her finding her way on antibiotics when she has a venous stasis flareup without scrutiny to ensure there truly is infection. Safe/stable for home. Postoperative left shoulder pain - Outpatient PT Hyponatremia - outpatient follow-up RUSTY - resolved. outpatient follow-up Else see resident documentation as noted. Resident Activity Tracking Resident Involvement: Resident Care Provided Care Provided: Adult Hospital Medicine
[2024-02-29 07:24] LABS: Hematocrit (blood only) 32.3 % (37.0-47.0); Hemoglobin 10.7 g/dl (12.0-16.0); Mean Corpuscular Hemoglobin 28.5 pg (25.0-34.0); Mean Corpuscular Hgb Conc 33.1 g/dL (32.0-36.0); Mean Corpuscular Volume 86.1 fL (80.0-100.0); Mean Platelet Volume 8.9 fL (9.4-12.4); Platelet Count 293 K/uL (130-400); RDW Coefficient of Variation 14.5 % (11.5-14.5); RDW Standard Deviation 45.4 fL (36.4-46.3); Red Blood Count 3.75 M/uL (4.20-5.40); White Blood Count 3.68 K/ul (4.8-10.8)
[2024-02-29 07:42] LABS: BUN Creatinine Ratio 23.2 (10-20); C Reactive Protein 2.49 mg/dl (0-0.5); Calcium 9.4 mg/dl (8.6-10.3); Creatinine Clr Calc Pharmacy 40.9 ml/min; Est GFR (Non-African American) 53.5 ml/min; Potassium 4.4 mmol/L (3.5-5.1)
[2024-02-29] MEDS: traMADol HCL 50 MG TABLET PO PRN (08:17)
--- NOTE | 2024-02-29 18:28 | Billing Data ---
Date of Service February 29, 2024 Coding Level of Care Code 08015 IN/OBS DISCH 30 MIN/LESS
== END 2024-02-29 13:24 | disposition home or self-care (01) ==
LOC: 3N 16:55 → ED 16:55 → SUATTDRO 20:30 → 3N 21:30

== ENCOUNTER 2024-05-15 19:37 | Inpatient (IN) ==
--- OUTSIDE RECORDS SUMMARY | 2024-05-15 19:44 | External Medical Summary | Summary of Care ---
Author Name Unknown Organization [facility] Address [address] [facility] [place] [address] Phone [phone] Care Team Providers Care Front Desk Monitor Name Role Phone Makayla Adan Nany DOUGLAS Primary Care Provider [phone] Reason for Visit * Reason Comments Follow Up * Precert (Within 10 days (routine)) - Authorized Specialty Diagnoses / Procedures Referred By Nasra pritchard Referred To Contact Ophthalmology Diagnoses Exudative age-related macular degeneration, left eye, with active choroidal neovascularization (HCC) Procedures RI BEVACIZUMAB INJECTION RI INTRAVITREAL NJX PHARMACOLOGIC AGT SPX Mike Hollis DO [address] [place] [id number] Referral ID Status Reason Start Date Expiration Date V isits Requested Visits Authorized [id number] Authorized Precert 11/04/2022 10/11/[id number] Encounter Details Date Type Department Care Team (Late st Contact Info) Description 05/10/2024 1:30 PM EDT Office Visit Ophthalmology, [facility] [address] [place] [address] Mike Hollis DO [address] [place] [address] 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 Active Aspirin 81 MG Oral Tablet Delayed Release 1 Tablet. 07/04/2021 Ac tive Coenzyme Q10 100 MG Oral Capsule 1 Capsule. 10/25/2020 Active Cyanocobalamin 500 MCG Oral Tablet Take 1 Tablet by mouth. Active diphenhydrAMINE HCl (Sleep) 25 MG Oral Tablet Take 12.5 mg by mouth. Active Vitamin D3 1.25 MG (64309 UT) Oral Capsule Take 1 Capsule by mouth in the morning. Active Triamcinolone Acetonide 0.1 % External Cream (Aristocort) Apply 1 Application Dosing Unit topically to affected area as needed. 07/04/2021 Active Desonide 0.05 % External Cream Apply 1 Application Dosing Unit topically to affected area as needed. 07/04/2021 Active Escitalopram Oxalate 10 MG Oral Tablet (Lexapro) Take 1 Tablet by mouth in the morning. 10/16/2021 Active Omeprazole 20 MG Oral Capsule Delayed Release (PriLOSEC) Take 1 Capsule by mouth as needed. 09/25/2022 Active Famotidine 10 MG Oral Tablet Take 1 Tablet by mouth as needed. Active PreserVision AREDS 2 Oral Tablet Chewable Take by mouth 2 times a day. Active Spironolactone 50 MG Oral Tablet (Aldactone) Take 1 Tablet by mouth in the morning. 04/14/2023 Active Pramipexole Dihydrochloride 0.5 MG Oral Tablet (Mirapex) Take 1 Tablet by mouth in the morning. 04/20/2023 Active Losartan Potassium 100 MG Oral Tablet (Cozaar) Take 1 Tablet by mouth in the morning. 03/16/2023 Active hydrALAZINE HCl 25 MG Oral Tablet (Apresoline) Take 1 Tablet by mouth in the morning. 04/22/2023 Active traMADol HCl 50 MG Oral Tablet (Ultram) Take 1 Tablet by mouth in the morning and 1 Tablet at noon and 1 Tablet before bedtime. 04/10/2023 Active oxyBUTYnin Chloride 5 MG Oral Tablet (Ditropan) Take 1 Tablet by mouth in the morning. 03/09/2024 Active Celecoxib 200 MG Oral Capsule (CeleBREX) Take 1 Capsule by mouth in the morning and 1 Capsule before bedtime. 04/02/2024 Active Hospital, Clinic, or Other Facility Administered Medication Ordered Dose Route Frequency Start Date End Date Status bevaCIZumab (Avastin) inj 1.25 mgIndications: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),Exudative age-related macular degeneration of right eye with active choroidal neovascularization (HCC) 1.25 mg IZ PRN 01/19/2024 01/18/2025 Active ROPivacaine (Naropin) inj 1.5 mgIndications: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),Exudative age-related macular degeneration of right eye with active choroidal neovascularization (HCC) 1.5 mg IJ PRN 01/19/2024 01/18/2025 Active documented as of this encounter (statuses as of 05/10/2024) Active Problems Problem Noted Date Diagnosed Date Encounter for surveillance of abnormal nevi 06/12 documented as of this encounter (statuses as of 05/10/2024) Immunizations Name Administration Dates Next Due Seasonal Influenza, Quadrivalent Hd (Fluzone Hd) 07/24/2023 documented as of this encounter Social History Tobacco Use Types Packs/Day Years Used Date Smoking Tobacco: Never Smokeless Tobacco: Never Alcohol Use Standard Drinks/Week Comments Yes 1 (1 standard drink = 0.6 oz pur e alcohol) occasionally Utilities Answer Date Recorded Do you have trouble paying y our heating, water, or electric bill? (Adult - for ages 18 years and over) Not on file 03/29/2024 Is your family able to pay t he heat, water, or electric bill? (Household - for ages 0-17 years) Not on file 03/29/2024 Does your family have access to good internet? (Household - for ages 0-17 years) Not on file 03/29/2024 Social Connections Answer Date Recorded How often do you feel lonely or isolated from those around you? (Adult - for ages 18 years and over) Not on file 03/29/2024 Sex and Gender Information Value Date Recorded Sex Assigned at Not on file Gender Identity Not on file Sexual Orientation Not on file Job Start Date Occupation Industry Not on file Not on file Not on file documented as of this encounter Progress Notes * Mike Hollis, - 05/10/2024 1:30 PM EDT [facility] [place] Nursing Notes: Pratibha Zambrano, TECH 05/10/24 9414 Signed Amina Casillas is a 88 year old year old female who presents for AMD OU. Last Office Visit: 03/15/2024 (in office), Visit date not found (telemedicine) Patient currently states vision is slightly worse since last appt and has been noticing an ache in and around right eye. Are you diabetic? No OCT image(s) of both eyes acquired and filed/scanned into chart. Base Eye Exam Visual Acuity (Snellen - Linear) Right Left Dist cc 20/40 +1 20/350 -2 Dist ph cc 20/30 -1 NI Tonometry (Tonopen, 1:43 PM) Right Left Pressure 13 11 Pupils Pupils Shape React APD Right PERRL Round Sluggish None Left PERRL Round Sluggish Trace Visual Arnold (Counting fingers) Right Left Full Full Extraocular Movement Right Left Full, Ortho Full, Ortho Neuro/Psych Oriented x3: Yes Mood/Affect: Normal Dilation Both eyes: 0.5% Proparacaine @ 1:40 PM Dilation #2 Both eyes: 1.0% Mydriacyl, 2.5% Phenylephrine @ 1:42 PM Dilation #3 Both eyes: 1.0% Mydriacyl @ 1:44 PM EXTERNAL: The ocular adnexae are unremarkable. SLE: [...] changes, no RT/RD OCT Interpretation: OD: drusen, flattened PED, resolved srfluid--STABLE, prior improved 39um, prior worse, prior STABLE, prior STABLE, prior improved 94um prior WORSE/NEW 78um OS: srlfuid, flattened PED rip, srmounding--STABLE, prior STABLE, prior STABLE, prior STABLE, priorSTABLE, prior improved 72um A/P: 1. Age-Related Macular Degeneration OD: wet -Avastin 03/15/24, 10/21/23, 09/08/23, 07/31/23, 06/26/2023 -8 weeks; worse at 13 weeks (missed appoint); good at 6 weeks OS: wet PED rip -Avastin 07/07/23, 07/07/23, 04/23/23, 02/27/23, 01/13/23, 12/09/22, 11/04/22 -VA CF, hold injection -An examination for this condition was completed which is unrelated to the procedure that was performed today. -monitor 2. Posterior Vitreous Detachment OU -no RT/RD -advised to return to clinic if she should experience worsening or new floaters, flashes of light, a shadow in the periphery, or decrease in vision. 3. Pseudophakia OU -stable, Dr Roberts f/u 8-10 week for OCT OU Mike Hollis DO [...] documented in this encounter Nursing Notes * Yessica Guillermo LPN - 05/10/2024 2:05 PM EDT Amina Casillas to receive seventh Avastin 1.25mg Injection of the Right eye. Correct eye confirmed with patient and marked by Mike Hollis, DO Avastin 1.25mg lot # [id number] Exp. Date: 06/16/2024 * Pratibha Zambrano TECH - 05/10/2024 1:36 PM EDT Amina Casillas is a 88 year old year old female who presents for AMD OU. Last Office Visit: 03/15/2024 (in office), Visit date not found (telemedicine) Patient currently states vision is slightly worse since last appt and has been noticing an ache in and around right eye. Are you diabetic? No OCT image(s) of both eyes acquired and filed/scanned into chart. 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) Exudative age-related macular degeneration of right eye with active choroidal neovascularization (HCC) Ordered: 05/10/2024 Health Maintenance Due Date Last Done Comments DXA Scan 1935 Depression Screening 1947 DTaP,Tdap,and Td Vaccines (1 - Tdap) 1954 COVID-19 Vaccine (2022-24 season) 2023 07/19/2022, 07/19/2022, 02/07/2022, Additional history exists Influenza Vaccine (FLU shot) (#1) 2024 07/24/2023, 07/21/2023, 07/19/2022, Additional history exists Pneumococcal Vaccine: 65+ Years Completed 10/26/2017, 07/18/2015 Zoster Vaccines Completed 01/17/2019, 09/12, 10/07/2007 HPV (Gardasil) Vaccine Aged Out No lo nger eligible based on patient's age to complete this topic Hepatitis B Vaccine Aged Out No longe r eligible based on patient's age to complete this topic MENINGOCOCCAL (MENACTRA/MENVEO) Aged Out No longer eligible based on patient's age to complete this topic documented as of this encounter Medical Devices Not on filedocumented as of this encounter Visit Diagnoses Diagnosis 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)- Primary Exudative age-related macular degeneration of right eye with active choroidal neovascularization (HCC) documented in this encounter Administered Medications Active Administered Medications - up to 3 most recent administrations Medication Order MAR Action Action Date Dose Rate Site bevaCIZumab (Avastin) inj 1.25 mg 1.25 mg, Intravitreal, PRN Other, Starting on Thu01/19/24 at 0926, Until Thu01/18/25 at 0925, For 365 days Given 05/10/2024 2:09 PM EDT 1.25 mg Eye Right Given 03/15/2024 9:24 AM EDT 1.25 mg Ey e Right Given 01/19/2024 3:59 PM EDT 1.25 mg Ey e Right ROPivacaine (Naropin) inj 1.5 mg 1.5 mg, Injection, PRN Other, Starting on Thu01/19/24 at 0926, Until Thu01/18/25 at 0925, For 365 days Given 05/10/2024 2:09 PM EDT 1.5 mg Eye Right Given 03/15/2024 9:24 AM EDT 1.5 mg Ey e Right Given 01/19/2024 3:59 PM EDT 1.5 mg Ey e Right documented in this encounter Care Teams Front Desk Monitor Relationship Specialty Start Date End Date Makayla Adan CRNP [address] [place] [address] PCP - General Nurse Practitioner 06/26/23 documented as of this encounter
--- OUTSIDE RECORDS SUMMARY | 2024-05-15 19:44 | External Medical Summary | Summary of Care ---
Author Name Unknown Organization [facility] Address [address] [place] [place] [address] Phone [phone] Care Team Providers Care Air Brake Tester Name Role Phone Mkaayla Adan Nany DOUGLAS Primary Care Provider [phone] Reason for Visit * Reason Comments Follow Up * Precert (Within 10 days (routine)) - Authorized Specialty Diagnoses / Procedures Referred By Nasra pritchard Referred To Contact Ophthalmology Diagnoses Exudative age-related macular degeneration, left eye, with active choroidal neovascularization (HCC) Procedures FL BEVACIZUMAB INJECTION FL INTRAVITREAL NJX PHARMACOLOGIC AGT SPX Mike Hollis DO [address] [place] [address] Referral ID Status Reason Start Date Expiration Date V isits Requested Visits Authorized [id number] Authorized Precert 11/04/2022 10/11/2099 [id number] Encounter Details Date Type Department Care Team (Late st Contact Info) Description 05/10/2024 1:30 PM EDT Office Visit Ophthalmology, [facility] [address] [place] [address] Mike Hollis DO [address] [place] [address] Exudative age-related macular degeneration of left eye [...] by mouth. Active Vitamin D3 1.25 MG (73402 UT) Oral Capsule Take 1 Capsule by [...] Hollis, - 05/10/2024 1:30 PM EDT [facility] [place] Nursing Notes: Pratibha Zambrano, TECH 05/10/24 8644 Signed Amina Casillas is a 88 year [...] Mike Hollis, DO Avastin 1.25mg lot # [id number] Exp. Date: 06/16/2024 * Pratibha Zambrano TECH [...] Right documented in this encounter Care Teams Air Brake Tester Relationship Specialty Start Date End Date Makayla Adan CRNP [address] [place] [address] PCP - General Nurse Practitioner 06/26/23 documented as of this encounter
--- OUTSIDE RECORDS SUMMARY | 2024-05-15 19:44 | External Medical Summary | Summary of Care ---
Author Name Unknown Organization [facility] Address [address] [facility] [place] [address] Phone [phone] Care Team Providers Care Director Visual Name Role Phone Makayla Adan Nany DOUGLAS Primary Care Provider [phone] Reason for Visit * Reason Comments Follow Up * Precert (Within 10 days (routine)) - Authorized Specialty Diagnoses / Procedures Referred By Nasra pritchard Referred To Contact Ophthalmology Diagnoses Exudative age-related macular degeneration, left eye, with active choroidal neovascularization (HCC) Procedures WV BEVACIZUMAB INJECTION WV INTRAVITREAL NJX PHARMACOLOGIC AGT SPX Mike Hollis DO [address] [place] [id number] Referral ID Status Reason Start Date Expiration Date V isits Requested Visits Authorized [id number] Authorized Precert 11/04/2022 10/11/2099 [id number] Encounter Details Date Type Department Care Team (Late st Contact Info) Description 05/10/2024 1:30 PM EDT Office Visit Ophthalmology, [facility] [address] [place] [address] Mike Hollis DO [address] [place] [address] Exudative age-related macular degeneration of left eye [...] by mouth. Active Vitamin D3 1.25 MG (54343 UT) Oral Capsule Take 1 Capsule by [...] Hollis, - 05/10/2024 1:30 PM EDT [facility] [place] Nursing Notes: Pratibha Zambrano, TECH 05/10/24 1064 Signed Amina Casillas is a 88 year [...] Mike Hollis, DO Avastin 1.25mg lot # [id number] Exp. Date: 06/16/2024 * Pratibha Zambrano TECH [...] Right documented in this encounter Care Teams Director Visual Relationship Specialty Start Date End Date Makayla Adan CRNP [address] [facility] [address] PCP - General Nurse Practitioner 06/26/23 documented as of this encounter
--- OUTSIDE RECORDS SUMMARY | 2024-05-15 19:44 | External Medical Summary | Continuity of Care Document ---
Author Name Unknown Organization [facility] [address] [facility] Address [address] [place], [place] [id number] Care Team Providers Care Technician Plant And Maintenance Name Role Phone Keny Quiroga Primary Care Physician [phone] [facility] [id number] Date(s): 05/09/24 - 05/09/24 [facility] [address], [address] [place] [phone] Discharge Disposition: Home or Self Care Attending Physician: MD Quiroga Dongsheng Allergies, Adverse Reactions, Alerts No Known Medication Allergies Immunizations Given and Recorded Vaccine Date Status [...] allergy symptoms Start Date: 10/25/20 Status: Ordered carbidopa-levodopa 25 mg-100 mg oral tablet Start: 05/02/24 10:55:00 AM EDT, 1 tab, PO, tid Start Date: 05/02/24 Status: Ordered Centrum Women's Start: 10/25/20 9:43:00 AM EST, 1 tab, PO, Daily Start Date: 10/25/20 Status: Ordered desonide 0.05% topical cream Start: 06/03/22 10:25:00 AM EDT, 1 appl, topical, bid, Disp# 15 g, Refills: 4, to affected area, Pharmacy: [id number] Start Date: 06/03/22 Status: Ordered hydrALAZINE 25 mg oral tablet Start: 03/01/24 3:10:00 PM EDT, 1 tab, PO, tid, Disp# 90 tab, Refills: 0, Pharmacy: [id number] Start Date: 03/01/24 Status: Ordered lidocaine-prilocaine 2.5%-2.5% topical cream Start: 11/20/23 5:27:00 PM EST, See Instructions, Disp# 30 g, Refills: 3, apply to affected area bid,Pharmacy: [id number] Start Date: 11/20/23 Status: Ordered losartan 100 mg oral tablet Start: 04/12/24 7:24:00 AM EDT, See Instructions, Disp# 90 tab, Refills: 0, Take 1 tablet by mouth once daily, Pharmacy: [facility] [address] Start Date: 04/12/24 Status: Ordered Metamucil Start: 12/12/22 1:24:00 PM EST Start Date: 12/12/22 Status: Ordered pramipexole 0.5 mg oral tablet [...] Note to Pharmacy: disregard bid rx, Pharmacy: [id number] Start Date: 07/14/23 Stop Date: 07/08/24 Status: Ordered traMADol 50 mg oral tablet Start: 10/24/21 1:20:00 PM EST, See Instructions, take 3 times daily as needed Start Date: 10/24/21 Status: Ordered triamcinolone 0.1% topical cream Start: 08/28/22 10:14:00 AM EST, 1 appl, topical, bid, Disp# 60 g, Refills: 3, Pharmacy: [facility] Start Date: 08/28/22 Status: Ordered triamcinolone 0.5% topical ointment Start: 05/02/24 11:20:00 AM EDT, 1 appl, topical, bid, Disp# 60 g, to affected area on the lower legs. As needed for skin itch, Pharmacy: [facility] Start Date: 05/02/24 Status: Ordered unknown medication Start: 10/25/20 9:42:00 [...] 3, PRN: as needed for nausea/vomiting, Pharmacy: [id number] Start Date: 04/15/23 Status: Ordered Problem List Condition Confirmation Course Effective Dates Status H ealth Status Informant Aortic root dilation Confirmed Active Lower extremity edema Confirmed Active Fatigue Confirmed Active Hypertension Confirmed Active LVH (left ventricular hypertrophy) Confirmed Active Colon cancer Confirmed Active Urinary incontinence, mixed Confirmed Active Venous insufficiency, peripheral Confirmed Active Idiopathic polyneuropathy Confirmed Active Restless leg Confirmed Active Shoulder pain Confirmed Active Spinal stenosis Confirmed Active Procedures Procedure Date Related Diagnosis Body Site [...] and pelvis wit h intravenous contrast 7 02/28/22 Completed Echocardiogram 8 06/28/21 Complete d Lumbar epidural steroid injection 35 Completed X-ray 9 Completed 1VenaSeal treatment right great saphenous vein. 2avastin 1.25 mg injection left eye 3left eye 4left eye 5intravitreal [facility] of [facility]: 1. There is no [...] the rt ankle. Ankle soft tissue swelling. Results Radiology Reports * Exam Date Time Procedure Performing Provider Status 05/09/24 3:23 PM VL Ankle-Brachial Index-Complete Veronica Floyd; Final Notes: (VL Ankle-Brachial Index-Complete) Reason For Exam: leg swelling and bluish toe VL Ankle-Brachial Index-Complete [facility] FINAL REPORT Name: VLADIMIR AWAD : 1935 Visit: [id number] Date: 09 May 2024 TYPE OF TEST: Peripheral Arterial Testing REASON FOR TEST Discoloration of Toes, Edema, Redness INTERPRETATION/FINDINGS Resting ankle/brachial indices and multilevel Doppler waveforms obtained of the bilateral lower extremities: 1. Doppler waveforms obtained in the bilateral common femoral, superficial femoral, popliteal, anterior tibial, posterior tibial and peroneal arteries demonstrate normal, multiphasic waveforms suggesting no evidence of significant arterial occlusive disease bilaterally. 2. The bilateral ankle/brachial indices are normal; 1.05 on the right and 1.00 on the left. No prior exam available for comparison. IMPRESSION/COMMENTS I have personally reviewed the data relevant to the interpretation of this study. TECHNOLOGIST: Veronica Hardy , RDCS, RVT PHYSICIAN: Artemio Ca MD Signed: 05/10/2024 07:43 AM Final Dictated by:MD Ca John F Dictated DT/TM:05/10/2024 7:44 Signed by:MD Ca John F Signed (Electronic Signature):05/10/2024 7:43 a Transcribed by:АЛЕКСАНДР Social History Social History Type Response Smoking Status Never smoked cigaret daryl Sex Female Sex Representation Female (finding) Patient Care team information Care Team Personnel Name: STELLA Adan Tara Position: Nurse Pract - Family Med Member Role: Lifetime Relationship Address: [address] [place] [address] [place] Name: MD Quiroga Dongsheng Position: Physician - Family Med Member Role: Primary Care Provider Address: [facility] [place] [address] [place] Care Team Related Persons Name: KILO CAMARENA Name: DELMIALMA
[2024-05-15] MEDS: ACETAMINOPHEN 1,000 MG/100 ML VIAL IV STA (20:10)
[2024-05-15] MEDS: cefTRIAXone SODIUM 2,000 MG/50 ML BAG IV STA (20:10)
[2024-05-15 20:34] LABS: Basophils # (auto) 0.01 K/uL (0.00-0.20); Basophils % (auto) 0.1 %; Eosinophils # (auto) 0.11 K/uL (0.00-0.50); Eosinophils % (auto) 1.3 %; Hematocrit (blood only) 34.8 % (37.0-47.0); Hemoglobin 11.2 g/dl (12.0-16.0); Immature Granulocytes # (auto) 0.03 K/uL (0.01-0.20); Immature Granulocytes % (auto) 0.4 %; Lymphocytes # (auto) 0.88 K/uL (1.20-3.40); Lymphocytes % (auto) 10.3 %; Mean Corpuscular Hemoglobin 28.5 pg (25.0-34.0); Mean Corpuscular Hgb Conc 32.2 g/dL (32.0-36.0); Mean Corpuscular Volume 88.5 fL (80.0-100.0); Mean Platelet Volume 9.4 fL (9.4-12.4); Monocytes # (auto) 0.85 K/uL (0.11-0.59); Neutrophils # (auto) 6.63 K/uL (1.40-6.50); Neutrophils % (auto) 77.9 %; Platelet Count 217 K/uL (130-400); RDW Coefficient of Variation 14.7 % (11.5-14.5); Red Blood Count 3.93 M/uL (4.20-5.40); White Blood Count 8.51 K/ul (4.8-10.8)
[2024-05-15 20:46] LABS: Albumin Globulin Ratio 1.4 (0.9-2); Albumin Level 3.9 gm/dl (3.4-5.0); BUN Creatinine Ratio 24.6 (10-20); Bilirubin,Total 0.5 mg/dl (0.2-1.0); Calcium 9.5 mg/dl (8.6-10.3); Est GFR (African American) 26.6 ml/min; Globulin 2.7 gm/dl (2.5-4.0); Potassium 4.5 mmol/L (3.5-5.1); Total Protein 6.6 gm/dl (6.0-8.3)
[2024-05-15] MEDS: SODIUM CHLORIDE 0.9% 1,000 ML IV SCH (20:54)
--- NOTE | 2024-05-15 20:57 | Emergency Department Note ---
Impression & Plan Cellulitis, RUSTY (acute kidney injury) ED Provider Note ED Provider Note NAME: VLADIMIR AWAD AGE:88 SEX: Female : 1935 ARRIVES VIA: private vehicle INFORMANT: Patient ED PROVIDER(s): Briana Ramirez DO CHIEF COMPLAINT: Left leg pain and swelling HPI: This is an 88-year-old female presents emergency department due to concern for increased left leg pain and swelling as well as redness which began yesterday. Patient states this is similar to prior episodes of cellulitis for which she has previously been admitted. at bedside states she has had 4 episodes since August of last year. She states he did not know why this continues to happen. She denies any trauma or injury. She denies fevers, chills, change in appetite, dizziness, nausea or vomiting. She denies any other joint pain. Patient states she is not a diabetic. PAST MEDICAL HISTORY:See Below PAST SURGICAL HISTORY:See Below FAMILY HISTORY:See Below SOCIAL HISTORY:See Below HOME MEDICATIONS:See Below ALLERGIES:See Below VITALS:See Below PHYSICAL EXAMINATION: GENERAL: alert, well appearing, well nourished, no distress, non-toxic EYE EXAM: normal conjunctiva, PERRL and EOM's grossly intact OROPHARYNX: no exudate, no erythema, lips, buccal mucosa, and tongue normal and mucous membranes are moist NECK: supple, no nuchal rigidity, no adenopathy, non-tender LUNGS: Clear to auscultation. Normal chest wall mechanics, no w/r/r HEART: no murmurs, S1 normal and S2 normal ABDOMEN: abdomen soft, non-tender, normo-active bowel sounds, no masses, no rebound or guarding. SKIN: no rashes, petechiae, orbruising UPPER EXTREMITIES: upper extremities are grossly normal. FROM, nml pulses b/l. LOWER EXTREMITIES: No pitting edema. FROM, nml pulses b/l. Marked erythema to the distal left lower extremity diffuse and circumferential with increased warmth, and slight weeping laterally, no obvious trauma or injury, erythema is diffuse down through the foot and into the toes NEURO EXAM: Normal sensorium, cranial nerves II-XII grossly intact, normal speech, no facial droop,nogross weakness of arms, no gross weakness of legs. Gross sensation intact. No ataxia. Vital Signs: reviewed and remarkable Differential Diagnosis: cellulitis, abscess, MRSA infection, DVT, necrotizing fasciitis, dermatitis, drug eruption, as well as others were entertained. MEDICAL DECISION MAKING: This is an 88-year-old female who presents emergency department due to concern for recurrent left lower extremity cellulitis. Patient with several prior episodes in the last 6 to 7 months per her report at bedside. She was afebrile vital signs stable. Patient with significant cellulitic appearance to the distal left lower extremity. No trauma or deformity. Labs drawn and sent, IV established, patient monitored on telemetry. She was noted to have RUSTY which is new additionally and so was started on gentle IV fluid hydration. Prior wound cultures grew strep, patient given a dose of IV Rocephin here. Area outlined with a sterile marking pen. Due to RUSTY, advanced age, and significant appearance of the cellulitis, case discussed with the hospitalist team for additional evaluation and management. Consultation(s): 2134: Case discussed with Dr. Kendall, [facility] hospitalist team, for additional evaluation and management. ER Treatment Provided: See below Diagnostics Interpreted By Me: -Cardiac Monitoring: An order was placed for continuous cardiac monitoring. The monitor shows a rate of 92 with normal sinus rhythm. -Laboratory studies: As stated above and show below. 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 Encounter for pre-operative examination Elevated troponin (Acute) Cellulitis (Acute) Chronic venous insufficiency Rotator cuff arthropathy of left shoulder Cellulitis of right leg (Acute) Cellulitis of right ankle Benign skin lesion of cheek Pes anserine bursitis Edema (Acute) to bilateral LE edema L>R following with vascular surgery- scheduled for upcoming Venaseal before TSA Hypokalemia (Acute) Electrolyte abnormality First degree AV block Chronic 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 Sharp Mildly dilated ascending aorta at 3.9cm per 11/2023 ECHO Restless legs syndrome (Acute) HTN (hypertension) (Chronic) History of colon cancer, stage I (Chronic) 2013- s/p colon resection- no chemo or XRT Frequency of urination and polyuria Chronic Exertional dyspnea (Acute) pt denies any SOB with exertion at this time Eczema of lower extremity Medical History Bacteremia - Admitted to [facility] 12/04/23-12/11/23--admitted for cellulitis/treated- resolved per patient per PAT appt 01/07/24 Surgical History History of thumb surgery right History of cholecystectomy History of cardiac cath (2013) pt states she can't remember this, per Dr. Sharp record no stents History of tubal ligation (1970) History of knee replacement bilateral--left and right knee History of colonoscopy History of cataract surgery (2009) bilateral Family History Father CHF (congestive heart failure) Cardiac arrest Hypertension Mother Cardiac arrest Cardiac disorder Hypertension Stroke Sister Hypertension Stroke Aunt Stomach cancer Other No family history of adverse response to anesthesia Denies family history of Ovarian cancer Prostate cancer Myocardial infarction Breast cancer Bleeding disorder Colorectal cancer Social History Smoking Status: Never smoker Second Hand Exposure: No; Do You Dip or Chew Tobacco: No; Hx Alcohol Use: Yes Alcohol type: wine Hx Substance Use: No Preferred Language: Japanese Communication Ability: Effective Visual Impairment: No Limitations Hearing Ability: Hard of Hearing Head Rose Grower Required: No Beliefs That Will Affect Care: None marital status: Current Living Situation: Spouse Current Living Situation Comment: living with current occupational status: retired Feels Safe at Home: Yes Childhood Exposure to Second-Hand Smoke: Yes Dental Care, Regularly: Yes Physical Activity Frequency: Does not Exercise Seatbelt Use: always Sunscreen Use: No Assistive Devices: Glasses and Walker Allergies Allergies Allergy/AdvReac Type Severity Reaction Status Date / Time No Known Allergies Allergy Verified 05/03/24 10:43 Home Meds Home Medications Medication Instructions Recorded Confirmed cyanocobalamin (vitamin B-12) 500 500 mcg PO QAM 05/01/20 05/03/24 mcg tablet triamcinolone acetonide 0.1 % 1 applic topical DAILY PRN Skin 09/25/20 05/03/24 topical cream Irritation cholecalciferol (vitamin D3) 50 2,000 unit PO QAM 02/11/21 05/03/24 mcg (2,000 unit) capsule losartan 100 mg tablet 100 mg PO QAM 02/11/21 05/03/24 zinc gluconate 50 mg tablet 50 mg PO QAM 02/11/21 05/03/24 diphenhydramine HCl 25 mg tablet 25 mg PO HS PRN Sleep 07/16/21 05/03/24 (Benadryl Allergy) escitalopram oxalate 10 mg tablet 10 mg PO QAM Anxiety 09/24/22 05/03/24 aspirin 325 mg tablet 325 mg PO DIRECTED PRN Pain 08/18/23 05/03/24 desonide 0.05 % topical cream 1 applic topical BID PRN Skin 08/18/23 05/03/24 Irritation diclofenac sodium 1 % topical gel 2 g topical QID PRN Pain 08/18/23 05/03/24 hydralazine 25 mg tablet 25 mg PO TID 08/18/23 05/03/24 [id number]-[id number] 4 mg-folic acid 1 tab PO QAM 08/18/23 05/03/24 200 mcg-vit K 25 mcg-lutein tablet (Centrum Minis Women 50 Plus) psyllium husk 0.52 gram capsule 1.04 g PO QAM 08/18/23 05/03/24 famotidine 10 mg tablet 10 mg PO DAILY PRN 11/20/23 05/03/24 HEARTBURN/INDIGESTION spironolactone 25 mg tablet 25 mg PO QAM 11/20/23 05/03/24 celecoxib 200 mg capsule (Celebrex) 200 mg PO BID PRN Pain 12/29/23 05/03/24 Previous Rx's Medication Instructions Recorded ondansetron 4 mg disintegrating 4 mg PO Q6H PRN nausea and 09/10/22 tablet vomiting #14 tabs carbidopa 25 mg-levodopa 100 mg 0.5 tab PO DAILY restless legs 30 04/26/24 tablet (Sinemet) days #30 tabs pramipexole 0.5 mg tablet 0.5 mg PO .COMPLEX #150 tabs 04/26/24 tramadol 50 mg tablet 50 mg PO TID PRN Pain #90 tabs 04/26/24 Results & Data (ED) Vital Signs Vital Signs - 24 hr 05/15/24 19:40 05/15/24 20:00 05/15/24 20:30 Temperature 36.8 C Temperature Source Temporal Artery Scan Pulse Rate 105 H Pulse Rate [Finger] 89 83 Pulse Rhythm [Finger] Regular Regular Pulse Strength [Finger] Normal Normal Respiratory Rate 16 18 19 Respiratory Effort / Characteristics Non-Labored Non-Labored Respiratory Depth Normal Normal Respiratory Pattern Regular Regular Blood Pressure 126/70 Blood Pressure [Left Arm] 150/73 H 146/91 H Blood Pressure Mean 88 Blood Pressure Mean [Left Arm] 98 109 Pulse Oximetry 97 95 96 Oxygen Delivery Method Room Air Room Air Room Air Sepsis Recent Fever Within 48 Hours No Sepsis New/Unexplained Change in Mental Status No Sepsis Action Taken by Nursing No Action Required 05/15/24 21:00 Temperature Temperature Source Pulse Rate Pulse Rate [Finger] 88 Pulse Rhythm [Finger] Pulse Strength [Finger] Respiratory Rate 19 Respiratory Effort / Characteristics Non-Labored Respiratory Depth Normal Respiratory Pattern Regular Blood Pressure Blood Pressure [Left Arm] 143/96 H Blood Pressure Mean Blood Pressure Mean [Left Arm] 111 Pulse Oximetry 98 Oxygen Delivery Method Room Air Sepsis Recent Fever Within 48 Hours Sepsis New/Unexplained Change in Mental Status Sepsis Action Taken by Nursing Laboratory Data 05/15/24 20:09 05/15/24 20:09 Lab Results 05/15/24 Range/Units 20:09 WBC 8.51 (4.8-10.8) K/ul RBC 3.93 L (4.20-5.40) M/uL Hgb 11.2 L (12.0-16.0) g/dl Hct 34.8 L (37.0-47.0) % MCV 88.5 (80.0-100.0) fL MCH 28.5 (25.0-34.0) pg MCHC 32.2 (32.0-36.0) g/dL RDW Std Deviation 48.0 H (36.4-46.3) fL RDW Coeff of Xavier 14.7 H (11.5-14.5) % Plt Count 217 (130-400) K/uL MPV 9.4 (9.4-12.4) fL Immature Gran % (Auto) 0.4 % Neut % (Auto) 77.9 % Lymph % (Auto) 10.3 % Williams % (Auto) 10.0 % Eos % (Auto) 1.3 % Baso % (Auto) 0.1 % Neut # (Auto) 6.63 H (1.40-6.50) K/uL Lymph # (Auto) 0.88 L (1.20-3.40) K/uL Williams # (Auto) 0.85 H (0.11-0.59) K/uL Eos # (Auto) 0.11 (0.00-0.50) K/uL Baso # (Auto) 0.01 (0.00-0.20) K/uL Immature Gran # (Auto) 0.03 (0.01-0.20) K/uL Sodium 130 L (136-145) mmol/L Potassium 4.5 (3.5-5.1) mmol/L Chloride 99 (98-107) mmol/L Carbon Dioxide 24 (21-32) mmol/L Anion Gap 7 (3-11) BUN 47 H (6-23) mg/dl Creatinine 1.91 H (0.6-1.2) mg/dl Est Cr Clr Drug Dosing 20.0 ml/min Est GFR ( Amer) 26.6 ml/min Est GFR (Non-Af Amer) 23.0 ml/min BUN/Creatinine Ratio 24.6 H (10-20) Glucose 99 (70-99(Fasting)) mg/dl Calcium 9.5 (8.6-10.3) mg/dl Total Bilirubin 0.5 (0.2-1.0) mg/dl AST 17 (13-39) U/L ALT 3 L (7-52) U/L Alkaline Phosphatase 74 (34-104) U/L Total Protein 6.6 (6.0-8.3) gm/dl Albumin 3.9 (3.4-5.0) gm/dl Globulin 2.7 (2.5-4.0) gm/dl Albumin/Globulin Ratio 1.4 (0.9-2) Procalcitonin 2.44 H (0-0.5) ng/ml Administered Medications Daptomycin 250 mg/ Syringe 5 mls @ 2.5 mls/min IV Q48H [facility]; Protocol Stop: 05/22/24 22:59 Last Admin: 05/15/24 22:47 Dose: 2.5 mls/min Documented By: AY Discontinued Medications Acetaminophen (Ofirmev) 1,000 mg in 100 mls @ 400 mls/hr IV NOW STA Stop: 05/15/24 20:12 Last Infusion: 05/15/24 20:55 Dose: Infused Documented By: Admin: 05/15/24 20:10 Dose: 400 mls/hr Documented By: IRIVN Ceftriaxone Sodium (Rocephin) 2,000 mg in 50 mls @ 100 mls/hr IV NOW STA Stop: 05/15/24 20:27 Last Infusion: 05/15/24 20:55 Dose: Infused Documented By: Admin: 05/15/24 20:10 Dose: 100 mls/hr Documented By: IRVIN Sodium Chloride (Nss) 1,000 mls @ 125 mls/hr IV .Q8H JAKUB Stop: 06/14/24 20:59 Last Infusion: 05/15/24 23:36 Dose: Infused Documented By: Admin: 05/15/24 20:54 Dose: 125 mls/hr Documented By: IRVIN Morphine Sulfate (Morphine Sulfate 2 Mg/Ml Carp) 2 mg IV NOW STA Stop: 05/15/24 21:12 Last Admin: 05/15/24 21:18 Dose: 2 mg Documented By: IRVIN Discharge Plan Visit Data Chief Complaint: Swelling/Edema to Extremity Stated Complaint: LT LEG PAIN/EDEMA ED Provider: Briana Ramriez Discharge Problem: Cellulitis, RUSTY (acute kidney injury) Patient Disposition: Admitted As Inpatient Discharge Instructions Interventions: ED Discharge Assessment Last Done: 05/15/24 22:48
[2024-05-15] MEDS: MoRPHine SULFATE 2 MG/ML CARP IV STA (21:18)
--- NOTE | 2024-05-15 21:44 | History & Physical Report ---
Date of Service May 15, 2024 Assessment & Plan (1) Cellulitis: Plan: 88yo female with history of recurrent cellulitis presenting with two days of LLE redness/edema. Labs are concerning for possible necrotizing infection including Cr=890, elevated BUN=47, Cr=1.91, Elevated CRP=17.9 and Procalcitonin=2.44. LRINEC Score for Necrotizing soft tissue infection=9. Has had Group C streptococcus infections in the past as well Patient is afebrile at present, HD and non-toxic in appearance -Admit to medical -Closely monitor for evidence of worsening infection - low threshold for CT imaging and surgical consultation -IVF with Plasmalyte at 80mL/hr -Ceftriaxone 2gm IV daily -Daptomycin -Pain control with Tylenol PRN, Dilaudid PRN -Zofran PRN nausea (2) RUSTY (acute kidney injury): Plan: Elevation of BUN and Cr from baseline. Patient reports adequate UOP. -Check urine Na and Cr -Check creatine kinase (3) Acute hyponatremia: Plan: In setting of acute illness, Yk=762, asymptomatic -Plasmalyte at 80mL/hr -Repeat BMP in AM (4) Superficial thrombosis of left lower extremity: Plan: Large superficial clot, near common iliac. Concern for possibility of propagation given location of clot and edema of leg -Heparin gtt for now History of Present Illness Chief Complaint: LLE pain, redness and swelling Primary Care Provider: Keny Quiroga Amina Casillas is a pleasant 88yo female with history chronic venous insufficiency and recurrent cellulitis presenting with 2 days of warmth, redness, swelling and tenderness of her LLE. Symptoms began two days ago. No inciting event, no trauma. Redness/swelling and pain have progressed. She has been having a small amount of drainage from the leg. Patient denies fever, chills, nausea or rigors. No additional complaints, specifically denies chest pain, cough, SOB, Abdominal pain, nausea, vomiting. Has had prior episodes of cellulitis involving both legs in the past. Was seen in August, November and February. This episode is similar to her prior episodes. She did become bacteremic in the past in November 2023 with Group C Beta Strep, In the ER she is afebrile, tachycardic on arrival now resolved, NAD ER Course: Morphine NSS Ceftriaxone Tylenol Daptomycin Allergies Allergy/AdvReac Type Severity Reaction Status Date / Time No Known Allergies Allergy Verified 05/03/24 10:43 Home Medications Medication Instructions Recorded Confirmed Type cyanocobalamin (vitamin B-12) 500 500 mcg PO QAM 05/01/20 05/03/24 History mcg tablet triamcinolone acetonide 0.1 % 1 applic topical DAILY PRN Skin 09/25/20 05/03/24 History topical cream Irritation cholecalciferol (vitamin D3) 50 2,000 unit PO QAM 02/11/21 05/03/24 History mcg (2,000 unit) capsule losartan 100 mg tablet 100 mg PO QAM 02/11/21 05/03/24 History zinc gluconate 50 mg tablet 50 mg PO QAM 02/11/21 05/03/24 History diphenhydramine HCl 25 mg tablet 25 mg PO HS PRN Sleep 07/16/21 05/03/24 History (Benadryl Allergy) ondansetron 4 mg disintegrating 4 mg PO Q6H PRN nausea and 09/10/22 05/03/24 Rx tablet vomiting #14 tabs escitalopram oxalate 10 mg tablet 10 mg PO QAM Anxiety 09/24/22 05/03/24 History aspirin 325 mg tablet 325 mg PO DIRECTED PRN Pain 08/18/23 05/03/24 History desonide 0.05 % topical cream 1 applic topical BID PRN Skin 08/18/23 05/03/24 History Irritation diclofenac sodium 1 % topical gel 2 g topical QID PRN Pain 08/18/23 05/03/24 History hydralazine 25 mg tablet 25 mg PO TID 08/18/23 05/03/24 History [id number]-[id number] 4 mg-folic acid 1 tab PO QAM 08/18/23 05/03/24 History 200 mcg-vit K 25 mcg-lutein tablet (Centrum Minis Women 50 Plus) psyllium husk 0.52 gram capsule 1.04 g PO QAM 08/18/23 05/03/24 History famotidine 10 mg tablet 10 mg PO DAILY PRN 11/20/23 05/03/24 History HEARTBURN/INDIGESTION spironolactone 25 mg tablet 25 mg PO QAM 11/20/23 05/03/24 History celecoxib 200 mg capsule (Celebrex) 200 mg PO BID PRN Pain 12/29/23 05/03/24 History carbidopa 25 mg-levodopa 100 mg 0.5 tab PO DAILY restless legs 30 04/26/24 05/03/24 Rx tablet (Sinemet) days #30 tabs pramipexole 0.5 mg tablet 0.5 mg PO .COMPLEX #150 tabs 04/26/24 05/03/24 Rx tramadol 50 mg tablet 50 mg PO TID PRN Pain #90 tabs 04/26/24 05/03/24 Rx Past Med/Surg History Problem List (Updated 05/16/24 @ 03:23 by Bren Kendall DO) Superficial thrombosis of left lower extremity RUSTY (acute kidney injury) (Acute) Cellulitis (Acute) Tremor Post-operative pain (Acute) RUSTY (acute kidney injury) (Acute) Cellulitis (Acute) Acute hyponatremia (Acute) 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 Encounter for pre-operative examination Elevated troponin (Acute) Cellulitis (Acute) Chronic venous insufficiency Rotator cuff arthropathy of left shoulder Cellulitis of right leg (Acute) Cellulitis of right ankle Benign skin lesion of cheek Pes anserine bursitis Edema (Acute) to bilateral LE edema L>R following with vascular surgery- scheduled for upcoming Venaseal before TSA Hypokalemia (Acute) Electrolyte abnormality First degree AV block Chronic 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 Sharp Mildly dilated ascending aorta at 3.9cm per 11/2023 ECHO Restless legs syndrome (Acute) HTN (hypertension) (Chronic) History of colon cancer, stage I (Chronic) 2013- s/p colon resection- no chemo or XRT Frequency of urination and polyuria Chronic Exertional dyspnea (Acute) pt denies any SOB with exertion at this time Eczema of lower extremity Medical History Bacteremia - Admitted to [facility] 12/04/23-12/11/23--admitted for cellulitis/treated- resolved per patient per PAT appt 01/07/24 Surgical History History of thumb surgery right History of cholecystectomy History of cardiac cath (2013) pt states she can't remember this, per Dr. Sharp record no stents History of tubal ligation (1970) History of knee replacement bilateral--left and right knee History of colonoscopy History of cataract surgery (2009) bilateral Family History Father CHF (congestive heart failure) Cardiac arrest Hypertension Mother Cardiac arrest Cardiac disorder Hypertension Stroke Sister Hypertension Stroke Aunt Stomach cancer Other No family history of adverse response to anesthesia Denies family history of Ovarian cancer Prostate cancer Myocardial infarction Breast cancer Bleeding disorder Colorectal cancer Social History Smoking Status: Never smoker Second Hand Exposure: No; Do You Dip or Chew Tobacco: No; Tobacco Cessation Education Requested by Patient: No Hx Alcohol Use: Yes Alcohol type: wine Hx Substance Use: No Preferred Language: Lithuanian Communication Ability: Effective Visual Impairment: No Limitations Hearing Ability: Hard of Hearing Radio Recorder Required: No Beliefs That Will Affect Care: None marital status: Current Living Situation: Spouse Current Living Situation Comment: living with current occupational status: retired Other Information That Helps Us Care for You: No Feels Safe at Home: Yes Safety Concerns: Feels Safe At This Time Childhood Exposure to Second-Hand Smoke: Yes Dental Care, Regularly: Yes Physical Activity Frequency: Does not Exercise Seatbelt Use: always Sunscreen Use: No Assistive Devices: Glasses, Hearing Aid - Bilateral, Hospital Bed and Walker Review of Systems 2 Review of Systems: All systems reviewed & are unremarkable except as noted in HPI & below Physical Exam 2 Physical Exam: General: patient resting comfortably, NAD, non-toxic in appearance, AA&O x 4 HEENT: NC/AT, PERRL, EOMI, anicteric sclera, conjunctiva without injection, external ear normal to inspection and nontender, nares patent, moist mucus membranes, dentition intact, no oropharyngeal lesions, neck supple, trachea midline, no LAD, no thyromegaly, no JVD Heart: +S1/S2, regular, no m/r/g Lungs: equal air entry bilaterally, no rales/rhonchi/wheezes Abd: +BS, soft, NT/ND, no masses/organomegaly/ascites Ext: warm, 2+ pulses in UE/LE bilaterally, warmth, redness, edema and tenderness of LLE with several areas of weeping, serous drainage, tender to palpation Neuro: nonfocal, patient AA&O x 4, speech intact, no facial droop, moving all extremities on command with equal strength 5/5 Results & Data Results & Data Vital Signs (Past 12 Hours) Vital Signs Temp Pulse Resp BP Pulse Ox O2 Del Method 05/15/24 19:40 36.8 C 105 H 16 126/70 97 Room Air Laboratory Results Laboratory Results WBC 8.51 K/ul (4.8-10.8) 05/15/24 20:09 RBC 3.93 M/uL (4.20-5.40) L 05/15/24 20:09 Hgb 11.2 g/dl (12.0-16.0) L 05/15/24 20:09 Hct 34.8 % (37.0-47.0) L 05/15/24 20:09 MCV 88.5 fL (80.0-100.0) 05/15/24 20:09 MCH 28.5 pg (25.0-34.0) 05/15/24 20:09 MCHC 32.2 g/dL (32.0-36.0) 05/15/24 20:09 RDW Std Deviation 48.0 fL (36.4-46.3) H 05/15/24 20:09 RDW Coeff of Xavier 14.7 % (11.5-14.5) H 05/15/24 20:09 Plt Count 217 K/uL (130-400) 05/15/24 20:09 MPV 9.4 fL (9.4-12.4) 05/15/24 20:09 Immature Gran % (Auto) 0.4 % 05/15/24 20:09 Neut % (Auto) 77.9 % 05/15/24 20:09 Lymph % (Auto) 10.3 % 05/15/24 20:09 Crowley % (Auto) 10.0 % 05/15/24 20:09 Eos % (Auto) 1.3 % 05/15/24 20:09 Baso % (Auto) 0.1 % 05/15/24 20:09 Neut # (Auto) 6.63 K/uL (1.40-6.50) H 05/15/24 20:09 Lymph # (Auto) 0.88 K/uL (1.20-3.40) L 05/15/24 20:09 Crowley # (Auto) 0.85 K/uL (0.11-0.59) H 05/15/24 20:09 Eos # (Auto) 0.11 K/uL (0.00-0.50) 05/15/24 20:09 Baso # (Auto) 0.01 K/uL (0.00-0.20) 05/15/24 20:09 Immature Gran # (Auto) 0.03 K/uL (0.01-0.20) 05/15/24 20:09 Sodium 130 mmol/L (136-145) L 05/15/24 20:09 Potassium 4.5 mmol/L (3.5-5.1) 05/15/24 20:09 Chloride 99 mmol/L (98-107) 05/15/24 20:09 Carbon Dioxide 24 mmol/L (21-32) 05/15/24 20:09 Anion Gap 7 (3-11) 05/15/24 20:09 BUN 47 mg/dl (6-23) H 05/15/24 20:09 Creatinine 1.91 mg/dl (0.6-1.2) H 05/15/24 20:09 Est Cr Clr Drug Dosing 20.0 ml/min 05/15/24 20:09 Est GFR ( Amer) 26.6 ml/min 05/15/24 20:09 Est GFR (Non-Af Amer) 23.0 ml/min 05/15/24 20:09 BUN/Creatinine Ratio 24.6 (10-20) H 05/15/24 20:09 Glucose 99 mg/dl (70-99(Fasting)) 05/15/24 20:09 Calcium 9.5 mg/dl (8.6-10.3) 05/15/24 20:09 Total Bilirubin 0.5 mg/dl (0.2-1.0) 05/15/24 20:09 AST 17 U/L (13-39) 05/15/24 20:09 ALT 3 U/L (7-52) L 05/15/24 20:09 Alkaline Phosphatase 74 U/L (34-104) 05/15/24 20:09 Total Creatine Kinase 67 U/L (26-192) 05/15/24 20:09 C-Reactive Protein 17.90 mg/dl (0-0.5) H 05/15/24 20:09 Total Protein 6.6 gm/dl (6.0-8.3) 05/15/24 20:09 Albumin 3.9 gm/dl (3.4-5.0) 05/15/24 20:09 Globulin 2.7 gm/dl (2.5-4.0) 05/15/24 20:09 Albumin/Globulin Ratio 1.4 (0.9-2) 05/15/24 20:09 Procalcitonin 2.44 ng/ml (0-0.5) H 05/15/24 20:09 Impressions Venous Doppler Study 05/15/24 21:43 Exam(s): US VENOUS LEFT LOWER EXTREMITY EXAM: US Duplex Left Lower Extremity Veins CLINICAL HISTORY: Reason for exam: ?DVT - LLE edema/redness. TECHNIQUE: Real-time duplex ultrasound scan of the left lower extremity veins integrating B-mode two-dimensional vascular structure, Doppler spectral analysis, color flow Doppler imaging and compression. COMPARISON: 03/22/2024 FINDINGS: Deep veins: Patent left common femoral vein, superficial femoral vein, popliteal vein, and calf veins. Superficial veins: Similar occlusive thrombus in the left greater saphenous vein to the distal thigh, approximately 1 cm from the confluence with the common femoral vein. Soft tissues: No acute findings. No popliteal cyst. Lymph nodes: Nonspecific prominent left inguinal lymph node. IMPRESSION: Similar occlusive thrombus in the left greater saphenous vein to the distal thigh, approximately 1 cm from the confluence with the common femoral vein. No deep venous thrombosis identified in the left lower extremity. Electronically signed by: Karen Qiu M.D. 05/16/24 01:14 AM Diagnostic Findings PG Care Time/CCT Total # of Minutes Spent Total Time Spent with Patient: Total time spent is greater than 50% in coordination of care (as documented) at patient's floor/unit and/or counseling patient: Coding Level of Care Code 10445 INT INP/OBS CARE MIN Diagnoses Cellulitis L03.90 RUSTY (acute kidney injury) N17.9 Acute hyponatremia E87.1 Superficial thrombosis of left lower extremity I82.812
[2024-05-15] MEDS: DAPTOmycin 250 MG in SYRINGE 0 ML IV SCH (22:47)
[2024-05-15] MEDS ORDERED: HYDROmorphone INJ 0.5 MG/0.5 ML SYR IV PRN (23:34)
[2024-05-15] MEDS ORDERED: ONDANSETRON INJ 2 MG/ML 2 ML VIAL IV PRN (23:34)
[2024-05-15] MEDS: PLASMA-LYTE A 1,000 ML IV SCH (23:34)
[2024-05-15] MEDS ORDERED: ACETAMINOPHEN 500 MG TAB PO PRN (23:34)
[2024-05-15 23:56] LABS: C Reactive Protein 17.9 mg/dl (0-0.5)
--- NOTE | 2024-05-16 01:15 | Ultrasound Report ---
Exam(s): US VENOUS LEFT LOWER EXTREMITY EXAM: US Duplex Left Lower Extremity Veins CLINICAL HISTORY: Reason for exam: ?DVT - LLE edema/redness. TECHNIQUE: Real-time duplex ultrasound scan of the left lower extremity veins integrating B-mode two-dimensional vascular structure, Doppler spectral analysis, color flow Doppler imaging and compression. COMPARISON: 03/22/2024 FINDINGS: Deep veins: Patent left common femoral vein, superficial femoral vein, popliteal vein, and calf veins. Superficial veins: Similar occlusive thrombus in the left greater saphenous vein to the distal thigh, approximately 1 cm from the confluence with the common femoral vein. Soft tissues: No acute findings. No popliteal cyst. Lymph nodes: Nonspecific prominent left inguinal lymph node. IMPRESSION: Similar occlusive thrombus in the left greater saphenous vein to the distal thigh, approximately 1 cm from the confluence with the common femoral vein. No deep venous thrombosis identified in the left lower extremity. Electronically signed by: Karen Qiu M.D. 05/16/24 01:14 AM
[2024-05-16] MEDS: HEPARIN SODIUM/DEXTROSE 25,000 UNITS/500 ML BAG IV SCH (05:02)
[2024-05-16] MEDS: Heparin IV Adult Wt-Based Standard *NO* INITIAL Bolus Protocol IV STA (05:02)
[2024-05-16 05:30] LABS: Partial Thromboplastin Ratio 1.3; Partial Thromboplastin Time 35 Seconds (21-31); Prothrombin Time 10.6 Seconds (9.0-12.0)
[2024-05-16] MEDS: HYDROmorphone INJ 0.5 MG/0.5 ML SYR IV PRN (06:49)
[2024-05-16 07:30] LABS: BUN Creatinine Ratio 35.1 (10-20); Calcium 9.3 mg/dl (8.6-10.3); Creatinine Clr Calc Pharmacy 34.7 ml/min; Est GFR (African American) 51.3 ml/min; Est GFR (Non-African American) 44.3 ml/min
[2024-05-16] MEDS: traMADol HCL 50 MG TABLET PO PRN (07:43)
[2024-05-16] MEDS: hydrALAZINE HCL 25 MG TAB PO SCH (08:30)
[2024-05-16] MEDS: ESCITALOPRAM OXALATE 10 MG TAB PO SCH (08:30)
[2024-05-16 08:38] LABS: Basophils # (auto) 0.03 K/uL (0.00-0.20); Basophils % (auto) 0.5 %; Eosinophils # (auto) 0.19 K/uL (0.00-0.50); Eosinophils % (auto) 3.1 %; Hematocrit (blood only) 35.5 % (37.0-47.0); Hemoglobin 11.4 g/dl (12.0-16.0); Immature Granulocytes # (auto) 0.01 K/uL (0.01-0.20); Immature Granulocytes % (auto) 0.2 %; Lymphocytes # (auto) 1.08 K/uL (1.20-3.40); Lymphocytes % (auto) 17.8 %; Mean Corpuscular Hemoglobin 28.5 pg (25.0-34.0); Mean Corpuscular Hgb Conc 32.1 g/dL (32.0-36.0); Mean Corpuscular Volume 88.8 fL (80.0-100.0); Mean Platelet Volume 9.7 fL (9.4-12.4); Monocytes # (auto) 0.56 K/uL (0.11-0.59); Monocytes % (auto) 9.2 %; Neutrophils # (auto) 4.19 K/uL (1.40-6.50); Neutrophils % (auto) 69.2 %; Platelet Count 224 K/uL (130-400); RDW Coefficient of Variation 14.8 % (11.5-14.5); RDW Standard Deviation 48.1 fL (36.4-46.3); White Blood Count 6.06 K/ul (4.8-10.8)
[2024-05-16 09:44] LABS: Creatinine Urine Random 25.6 mg/dl
--- NOTE | 2024-05-16 11:32 | Hospitalist Progress Note ---
Date of Service May 16, 2024 Assessment & Plan (1) Cellulitis: Plan: 88yo female with history of recurrent cellulitis presenting with two days of LLE redness/edema. Labs are concerning for possible necrotizing infection including Rc=966, elevated BUN=47, Cr=1.91, Elevated CRP=17.9 and Procalcitonin=2.44. LRINEC Score for Necrotizing soft tissue infection=9. Has had Group C streptococcus infections in the past as well -continue Rocephin and Daptomycin -pain control with Tylenol, tramadol, and dilaudid prn -zofran prn nausea -reviewed CBC 05/16:WBC WNL, hgb 11.4 AM CBC, CRP, procal (2) RUSTY (acute kidney injury): Plan: Elevation of BUN and Cr from baseline. Patient reports adequate UOP. -reviewed CK 05/16: 56 -reviewed BUN/Cr 05/16: BUN improved to 39, Creatinine WNL at 1.11. -s/p plasmalyte AM BMP (3) Acute hyponatremia: Plan: In setting of acute illness, Gv=526, asymptomatic -reviewed BMP 05/16: Na improved to 135 -Plasmalyte at 80mL/hr completed AM BMP (4) Superficial thrombosis of left lower extremity: Plan: -reviewed doppler from 05/15: revealing similar occlusive thrombus in L greater saphenous vein to distal thigh, 1cm from confluence with common femoral vein. No DVT -similar doppler US 03/22 -no on PO anticoagulation -reviewed vascular medicine outpatient notes -had recent left great saphenous cyanoacrylate adhesive endovenous ablation by vascular medicine on 03/16, follow up US at that time showed appropriate occlusion of left great saphenous vein/no evidence of DVT -stop heparin drip as doppler negative for DVT -continue to monitor Plan Chronic conditions: hypothyroidism: Synthroid Mental health: Lexapro Tremors/RLS: Mirapex HTN: hydralazine DVT prophylaxis: SCD's Code status: full Diet: regular disposition: continued inpatient stay. Possible discharge 05/17. Updated at bedside 05/16. Admission and Anticipated Discharge Date Admission Date: May 15, 2024 Supervising Physician Co-Signing Physician Notes The patient was not seen by me. The chart was reviewed. Case discussed with MAKENZIE Flores. Agree with assessment and plan Subjective Patient seen and examined this morning with her at bedside. Patient reports that she has been experiencing left upper leg pain this morning. She states she does get this occasional at home. She denies any LLE pain. Improvement noted in her LLE cellulitis this AM. Denies any other complaints. She denies CP or SOB. She denies being on PO anticoagulation outpatient. Physical Exam 2 Constitutional: WD/WN, vitals as above Eyes: PERRL, conjunctivae normal, anicteric sclerae Respiratory: normal respiratory effort, lungs clear to auscultation Cardiovascular: RRR, no murmur, no edema Skin: LLE erythema and warmth. decreased from /. Psychiatric: A+Ox3, euthymic affect Results & Data Results & Data Vital Signs (Past 12 Hours) Vital Signs Temp Pulse Pulse Resp BP Pulse Ox O2 Del Method 05/16/24 07:55 37.6 C H 78 17 149/86 H 95 Room Air 05/16/24 07:50 Room Air 05/16/24 07:27 36.6 C 75 18 137/84 96 Room Air Laboratory Results 05/16/24 06:11 05/16/24 06:03 PG Care Time/CCT Total # of Minutes Spent Total Time Spent with Patient: Total time spent is greater than 50% in coordination of care (as documented) at patient's floor/unit and/or counseling patient: Coding Level of Care Code 11125 SUB INP/OBS CARE 3/50MIN Diagnoses Cellulitis L03.90 RUSTY (acute kidney injury) N17.9 Acute hyponatremia E87.1 Superficial thrombosis of left lower extremity I82.812
[2024-05-16 11:53] LABS: ANTI-Xa, UFH(UnfractionatedHep 0.12 IU/ml (0.3-0.7)
[2024-05-16] MEDS: DOCUSATE SODIUM 100 MG CAP PO PRN (13:08)
[2024-05-16] MEDS: CARBIDOPA/LEVODOPA 25/100MG TAB PO SCH (14:07)
[2024-05-16] MEDS: PRAMIPEXOLE DIHYDROCHLO 0.5 MG TAB PO SCH ×2 (14:07→17:59)
[2024-05-16] MEDS: cefTRIAXone SODIUM 2,000 MG/50 ML BAG IV SCH (20:23)
[2024-05-16] MEDS: DAPTOmycin 250 MG in SYRINGE 0 ML IV SCH (22:05)
[2024-05-17] MEDS: FLUTICASONE PROPIONATE NA SPR 16 GM BTL SCH (08:02)
[2024-05-17 09:44] LABS: Hematocrit (blood only) 34.8 % (37.0-47.0); Hemoglobin 11.3 g/dl (12.0-16.0); Mean Corpuscular Hemoglobin 28.3 pg (25.0-34.0); Mean Corpuscular Hgb Conc 32.5 g/dL (32.0-36.0); Mean Platelet Volume 9.5 fL (9.4-12.4); Platelet Count 252 K/uL (130-400); RDW Coefficient of Variation 14.6 % (11.5-14.5); RDW Standard Deviation 47.1 fL (36.4-46.3); White Blood Count 5.58 K/ul (4.8-10.8)
[2024-05-17 10:06] LABS: BUN Creatinine Ratio 30.4 (10-20); C Reactive Protein 10.76 mg/dl (0-0.5); Calcium 9.4 mg/dl (8.6-10.3); Creatinine Clr Calc Pharmacy 48.7 ml/min; Est GFR (African American) 77.5 ml/min; Est GFR (Non-African American) 66.8 ml/min; Potassium 4.2 mmol/L (3.5-5.1)
--- NOTE | 2024-05-17 10:41 | Discharge Summary ---
Discharge Summary Date of Service May 17, 2024 Principal Dx & Hospital Course #1 = Principal Diagnosis (1) Cellulitis: 88yo female with history of recurrent cellulitis presenting with two days of LLE redness/edema. She has history of group C strep infections. Procalcitonin improved to 0.72 and CRP improved to 10.76 on day of discharge. WBC WNL. Patient was given tylenol, tramadol, and dilaudid prn for pain while inpatient. Patient was discharged home on Keflex 500mg three times daily x 7 days. She follows up with her PCP tomorrow and will continue treatment at their recommendations. She was afebrile throughout her hospital stay. Has had Group C streptococcus infections in the past as well (2) RUSTY (acute kidney injury): On admission patient had elevated BUN/Creatinine. Patient was given plasmalyte with improvement of her kidney function. Creatinine 0.79, BUN 24. (3) Acute hyponatremia: In setting of acute illness, Hy=977, asymptomatic. Improved to 135 on day of discharge. (4) Superficial thrombosis of left lower extremity: reviewed doppler from 05/15: revealing similar occlusive thrombus in L greater saphenous vein to distal thigh, 1cm from confluence with common femoral vein. No DVT. This doppler is similar results to 03/22/2024 US. She is not on PO anticoagulation outpatient. She recently followed with vascular medicine and their notes were reviewed. She had recent left great saphenous cyanoacrylate adhesive endovenous ablation by vascular medicine on 03/16, follow up US at that time showed appropriate occlusion of left great saphenous vein/no evidence of DVT Plan Chronic conditions: hypothyroidism: Synthroid Mental health: Lexapro Tremors/RLS: Mirapex HTN: hydralazine Plan of care discussed with at bedside 05/17. Admission HPI Per Admitting Provider Amina Casillas is a pleasant 88yo female with history chronic venous insufficiency and recurrent cellulitis presenting with 2 days of warmth, redness, swelling and tenderness of her LLE. Symptoms began two days ago. No inciting event, no trauma. Redness/swelling and pain have progressed. She has been having a small amount of drainage from the leg. Patient denies fever, chills, nausea or rigors. No additional complaints, specifically denies chest pain, cough, SOB, Abdominal pain, nausea, vomiting. Has had prior episodes of cellulitis involving both legs in the past. Was seen in August, November and February. This episode is similar to her prior episodes. She did become bacteremic in the past in November 2023 with Group C Beta Strep, In the ER she is afebrile, tachycardic on arrival now resolved, NAD ER Course: Morphine NSS Ceftriaxone Tylenol Daptomycin Discharge Exam Constitutional WD/WN, vitals as above Eyes PERRL, conjunctivae normal, anicteric sclerae Respiratory normal respiratory effort, lungs clear to auscultation Cardiovascular RRR, no murmur, no edema Skin decreased erythema in LLE. Psychiatric A+Ox3, euthymic affect Updated Medication List Medication Instructions Recorded Confirmed Type cyanocobalamin (vitamin B-12) 500 500 mcg PO QAM 05/01/20 05/03/24 History mcg tablet triamcinolone acetonide 0.1 % 1 applic topical DAILY PRN Skin 09/25/20 05/03/24 History topical cream Irritation cholecalciferol (vitamin D3) 50 2,000 unit PO QAM 02/11/21 05/03/24 History mcg (2,000 unit) capsule losartan 100 mg tablet 100 mg PO QAM 02/11/21 05/03/24 History zinc gluconate 50 mg tablet 50 mg PO QAM 02/11/21 05/03/24 History diphenhydramine HCl 25 mg tablet 25 mg PO HS PRN Sleep 07/16/21 05/03/24 History (Benadryl Allergy) ondansetron 4 mg disintegrating 4 mg PO Q6H PRN nausea and 09/10/22 05/03/24 Rx tablet vomiting #14 tabs escitalopram oxalate 10 mg tablet 10 mg PO QAM Anxiety 09/24/22 05/03/24 History aspirin 325 mg tablet 325 mg PO DIRECTED PRN Pain 08/18/23 05/03/24 History desonide 0.05 % topical cream 1 applic topical BID PRN Skin 08/18/23 05/03/24 History Irritation diclofenac sodium 1 % topical gel 2 g topical QID PRN Pain 08/18/23 05/03/24 History hydralazine 25 mg tablet 25 mg PO TID 08/18/23 05/03/24 History attprnwt-icl-shof 4 mg-folic acid 1 tab PO QAM 08/18/23 05/03/24 History 200 mcg-vit K 25 mcg-lutein tablet (Centrum Minis Women 50 Plus) psyllium husk 0.52 gram capsule 1.04 g PO QAM 08/18/23 05/03/24 History famotidine 10 mg tablet 10 mg PO DAILY PRN 11/20/23 05/03/24 History HEARTBURN/INDIGESTION spironolactone 25 mg tablet 25 mg PO QAM 11/20/23 05/03/24 History celecoxib 200 mg capsule (Celebrex) 200 mg PO BID PRN Pain 12/29/23 05/03/24 History carbidopa 25 mg-levodopa 100 mg 0.5 tab PO DAILY restless legs 30 04/26/24 05/03/24 Rx tablet (Sinemet) days #30 tabs pramipexole 0.5 mg tablet 0.5 mg PO .COMPLEX #150 tabs 04/26/24 05/03/24 Rx tramadol 50 mg tablet 50 mg PO TID PRN Pain #90 tabs 04/26/24 05/03/24 Rx cephalexin 500 mg capsule 500 mg PO TID 7 days #21 caps 05/17/24 Rx Hospital Stay Data Consultations 05/15/24 21:46 ED Decision to Admit Stat Diagnostic Imagining Performed Venous Doppler Study 05/15/24 21:43 Exam(s): US VENOUS LEFT LOWER EXTREMITY EXAM: US Duplex Left Lower Extremity Veins CLINICAL HISTORY: Reason for exam: ?DVT - LLE edema/redness. TECHNIQUE: Real-time duplex ultrasound scan of the left lower extremity veins integrating B-mode two-dimensional vascular structure, Doppler spectral analysis, color flow Doppler imaging and compression. COMPARISON: 03/22/2024 FINDINGS: Deep veins: Patent left common femoral vein, superficial femoral vein, popliteal vein, and calf veins. Superficial veins: Similar occlusive thrombus in the left greater saphenous vein to the distal thigh, approximately 1 cm from the confluence with the common femoral vein. Soft tissues: No acute findings. No popliteal cyst. Lymph nodes: Nonspecific prominent left inguinal lymph node. IMPRESSION: Similar occlusive thrombus in the left greater saphenous vein to the distal thigh, approximately 1 cm from the confluence with the common femoral vein. No deep venous thrombosis identified in the left lower extremity. Electronically signed by: Karen Qiu M.D. 05/16/24 01:14 AM Pending Results Patient Have Any Pending Studies at Discharge: No Discharge Instructions Given to Patient (Per Discharging Provider) Mrs. Casillas, You were recently hospitalized for cellulitis on your left leg. You were treated with antibiotics and had decrease in redness/warmth prior to discharge. Please see instructions below regarding your discharge. 1. Please take Keflex 500mg three times daily for 7 days. -Please take your first dose this afternoon after picking up from pharmacy and second dose prior to bed tonight 05/17 -Please take with food to avoid GI upset. 2. Please resume previous medications as prescribed. Please follow up with your PCP tomorrow as scheduled. If you develop any fever, chills, worsening left leg pain/redness/warmth please contact your PCP or report to the ER immediately. Sincerely, Zuleyma Chung PA-C Total Time Total Time Spent Total Time Spent (In Minutes): 40 Total Time Includes: Examination of the Patient, Discharge Planning and Medication Reconciliation Coding Level of Care Code 12632 INP/OBS DISCH >30 MIN Diagnoses Cellulitis L03.90 RUSTY (acute kidney injury) N17.9 Acute hyponatremia E87.1 Superficial thrombosis of left lower extremity I82.812
== END 2024-05-17 11:39 | disposition home or self-care (01) | DRG 603 ==
LOC: ED 19:37 → SUATTDRO 21:43 → 3W 21:43

== ENCOUNTER 2024-11-24 09:09 | Inpatient (IN) ==
--- NOTE | 2024-11-24 09:19 | Emergency Department Note ---
Impression & Plan Leg edema, RUSTY (acute kidney injury), Cellulitis of both lower extremities, Chronic venous insufficiency ED Provider Note CHIEF COMPLAINT: Leg swollen and sore HISTORY OF PRESENTING ILLNESS: This 89-year-old female patient presents to the emergency department with her for evaluation of bilateral lower extremity swelling and soreness. Symptoms started 1 week ago. She rates her discomfort a 6/10. She has been taking her Keflex as prescribed. She also made the changes as recommended by nephrology yesterday. However, she states that the swelling continues to increase and her pain is getting worse. The pain is now worse in the left leg. There is still a lot of clear fluid seepage. She denies any fevers. She denies any chest pain or SOB. Denies abdominal pain, nausea, or vomiting. She is not on any blood thinners. The patient was seen in the ER on 11/19/2024 for similar symptoms. The patient had no leukocytosis and her electrolyte findings were fairly stable. BNP was elevated. There was low concern for cellulitis, but she was treated with Keflex given her presentation. Low concern for DVT and ultrasounds were held. The patient was started on Lasix 20 mg once a day. The patient then followed up with nephrology on 11/23/2024. The patient's Lasix was stopped and she was put on Bumex 1 mg twice a day and her spironolactone was changed from 50 mg twice a day down to once a day. The patient's hydralazine was also stopped. The patient was advised to elevate her legs and start using compression stockings. Nephrology felt that her lower extremity edema was most likely secondary to venous insufficiency with possible concurrent cellulitis. They discussed increasing her Bumex to 2 mg twice a day if symptoms do not improve and that they may need to add metolazone. REVIEW OF SYSTEMS: See HPI for pertinent positives and pertinent negatives. ALLERGIES: NKDA MEDICATIONS: See below PAST MEDICAL HISTORY: See below PHYSICAL EXAM: VITALS: Vitals are noted on the nurse's note and reviewed by myself. GENERAL: Non toxic, in no acute distress, non-diaphoretic. SKIN: The patient's bilateral lower extremities are a shiny erythematous color with significant edema and 2-3+ pitting only involving the lower leg and not involving the knees or the ankles. No involvement of the feet, thighs, or hips. The patient is tender to palpation over this area. There is some mild clear fluid seepage, but no purulent discharge. No induration or fluctuance suggestive of abscess. Capillary refill <2 sec. EYES: PERRLA. EOMI. Conjunctivae without injection, sclerae without icterus. NOSE: Patent without discharge. MOUTH: Mucous membranes moist. Uvula midline. Airway patent. NECK: Supple without nuchal rigidity. HEART: Regular rate and rhythm without murmurs gallops or rubs. LUNGS: Clear to auscultation bilaterally without wheezes, rales or rhonchi. No retractions or accessory muscle use. ABDOMEN: Positive bowel sounds x 4. Normal tympanic percussion. Soft, nontender to palpation. No masses or hepatosplenomegaly. Laird sign negative. No CVA tenderness. No guarding, rigidity, or rebound tenderness. No focal RLQ or LLQ tenderness. MUSCULOSKELETAL: The patient is tender to palpation over the bilateral lower legs and calves in the area of the erythema and edema. Peripheral pulses are still 2+ and equal. Normal sensation to light and sharp touch of the bilateral lower extremities. NEURO: Patient was alert and oriented. No focal neurological deficits. DIFFERENTIAL DIAGNOSIS: Differential diagnosis includes DVT, SVT, venous insufficiency, fluid overload, CHF, electrolyte abnormality, cellulitis, abscess, sepsis, arterial occlusion, or others. ED COURSE AND MEDICAL DECISION MAKING: HISTORY FROM INDEPENDENT HISTORIAN: Additional history obtained from the patient's . MONITOR: Continuous potline monitor: Order was placed for continuous potline monitor. Patient was placed on the potline monitor and continuous pulse ox. Patient was noted to be in normal sinus rhythm at an initial rate of 66 bpm per my interpretation. EKG: EKG was interpreted by myself as sinus tachycardia at 107 bpm with first- degree AV block and incomplete right bundle branch block, but no acute ST or T wave changes and no significant change from her previous EKG. INTERPRETATION OF LABS: I interpreted the labs with full lab results as below in the lab section of this note. Laboratory results pertinent to the emergent complaint are discussed in the MDM section below. The patient was advised to follow up with their PCP and/or specialist(s) for further outpatient monitoring and management of any abnormal results. INTERPRETATION OF IMAGING: Imaging studies were interpreted by myself and read by radiology as per the imaging section of this note. The patient was advised to follow up with their PCP and/or specialist(s) for further outpatient management of any non-emergent abnormal findings. Chest x-ray showed cardiomegaly with pulmonary vascular congestion. Venous Doppler of the bilateral lower extremities were negative for DVT or other acute abnormalities other than subcutaneous edema. EXTERNAL RECORDS REVIEWED: I reviewed the patient's outpatient nephrology office visit from yesterday as summarized above. I also reviewed the patient's last ER visit as summarized above. CONSULTATIONS: On-call hospitalist [facility] SUMMARY: I examined the patient. The patient has had bilateral lower extremity redness and swelling for the past week. She was seen in the ER on 11/19/2024 and started on Keflex and Lasix. She then saw nephrology yesterday and was switched to Bumex and her spironolactone dose adjusted. The patient has been taking the medications as prescribed. However, she feels the swelling is getting progressively worse and she is now having increased pain in the L>R legs. She denies any chest pain or shortness of breath. No fevers. An IV lock was placed and labs were drawn. The patient declined any medication for pain while in the emergency department. IV fluids were held due to the patient's significant edema. White blood cell count normal at 6.06. Hemoglobin normal 12.5. Platelet count normal at 220. Coags normal. Creatinine has increased from 0.91 on 11/19/2024 to 1.34 today. BUN increased from 32 to 41. Sodium low at 132 and chloride 95, but CMP otherwise normal. Magnesium normal. ESR elevated at 54 and CRP elevated at 4.80. BNP slightly elevated at 110, but improved from 165 on 11/19/2024. Urinalysis normal. Chest x-ray showed cardiomegaly with pulmonary vascular congestion. Venous Doppler of the bilateral lower extremities were negative for DVT or other acute abnormalities other than subcutaneous edema. I had a meaningful discussion about this patient with Dr. Brennan who agrees with my assessment and the treatment plan. Difficult to determine whether the patient's erythema is secondary to venous stasis versus cellulitis. However, there is no leukocytosis and she is afebrile. Due to the patient's progressive lower extremity edema and pain despite diuretic use and Keflex in addition to her acute kidney injury, we feel the patient requires admission for further evaluation and treatment. I spoke with the on-call hospitalist who agreed to admit the patient for further evaluation and treatment. Please refer to their dictation for further details. The patient's care was transferred in stable condition. DIAGNOSIS: Bilateral lower extremity erythema, edema, and pain Acute kidney injury Past Med/Surg History Problem List (Updated 11/24/24 @ 18:05 by Zoya Hills PA-C) Venous insufficiency, peripheral Urinary incontinence, mixed Umbilical hernia Tachycardia Superficial thrombophlebitis Spinal stenosis Shoulder pain Sciatica Motion sickness Macular degeneration, wet Hypothyroid Hearing aid worn Fatigue Easy bruising Colon cancer CKD stage 3b, GFR 30-44 ml/min Arthritis Cellulitis of both lower extremities (Acute) Bilateral edema of lower extremity (Acute) Myofascial pain Lumbar radiculopathy Leg edema (Acute) COVID-19 (Acute) Encounter for cosmetic procedure Superficial thrombosis of left lower extremity RUSTY (acute kidney injury) (Acute) Cellulitis (Acute) Tremor Post-operative pain (Acute) RUSTY (acute kidney injury) (Acute) Cellulitis (Acute) Acute hyponatremia (Acute) Osteoarthritis of left shoulder Encounter for pre-operative examination Elevated troponin (Acute) Cellulitis (Acute) Chronic venous insufficiency (Acute) Rotator cuff arthropathy of left shoulder Cellulitis of right leg (Acute) Cellulitis of right ankle Benign skin lesion of cheek Pes anserine bursitis Edema (Acute) to bilateral LE edema L>R following with vascular surgery- scheduled for upcoming Venaseal before TSA Hypokalemia (Acute) Electrolyte abnormality First degree AV block Chronic 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 Sharp Mildly dilated ascending aorta at 3.9cm per 11/2023 ECHO Restless legs syndrome (Acute) HTN (hypertension) (Chronic) History of colon cancer, stage I (Chronic) 2013- s/p colon resection- no chemo or XRT Frequency of urination and polyuria Chronic Exertional dyspnea (Acute) pt denies any SOB with exertion at this time Eczema of lower extremity Medical History Bacteremia Surgical History Status post reverse total replacement of left shoulder (~01/2024) History of thumb surgery History of cholecystectomy History of cardiac cath (2013) History of tubal ligation (1970) History of knee replacement History of colonoscopy History of cataract surgery (2009) Family History Father CHF (congestive heart failure) Cardiac arrest Hypertension Mother Cardiac arrest Cardiac disorder Hypertension Stroke Sister Hypertension Stroke Aunt Stomach cancer Other No family history of adverse response to anesthesia Denies family history of Ovarian cancer Prostate cancer Myocardial infarction Breast cancer Bleeding disorder Colorectal cancer Social History Smoking Status: Never smoker Second Hand Exposure: No; Do You Dip or Chew Tobacco: No; Hx Alcohol Use: No Hx Substance Use: No Preferred Language: Nauruan Communication Ability: Effective Visual Impairment: No Limitations Hearing Ability: Use of Hearing Aid Solderer Electronic Required: No Beliefs That Will Affect Care: None marital status: Current Living Situation: Spouse Current Living Situation Comment: living with current occupational status: retired How many Children do You have: 4 Other Information That Helps Us Care for You: No Feels Safe at Home: Yes Safety Concerns: Feels Safe At This Time Childhood Exposure to Second-Hand Smoke: Yes Diet: regular caffeine: Yes (3 cups daily) Dental Care, Regularly: Yes Physical Activity Frequency: Does not Exercise Seatbelt Use: always Sunscreen Use: No Do you think of yourself as: straight/heterosexual Gender Identity: Female Assistive Devices: Cane and Glasses Allergies Allergies Allergy/AdvReac Type Severity Reaction Status Date / Time No Known Allergies Allergy Verified 11/23/24 12:59 Home Meds Home Medications Medication Instructions Recorded Confirmed cyanocobalamin (vitamin B-12) 500 500 mcg PO QAM 05/01/20 11/24/24 mcg tablet cholecalciferol (vitamin D3) 50 2,000 unit PO QAM 02/11/21 11/24/24 mcg (2,000 unit) capsule losartan 100 mg tablet 100 mg PO QAM 02/11/21 11/24/24 diphenhydramine HCl 25 mg tablet 25 mg PO HS PRN Sleep 07/16/21 11/24/24 (Benadryl Allergy) psyllium husk 0.52 gram capsule 1.04 g PO QAM 08/18/23 11/24/24 aspirin 81 mg tablet,delayed 81 mg PO DAILY 08/15/24 11/24/24 release escitalopram oxalate 10 mg tablet 10 mg PO DAILY 09/21/24 11/24/24 lidocaine-prilocaine 2.5 %-2.5 % 1 applic topical DIRECTED 11/23/24 11/24/24 topical cream promethazine 12.5 mg tablet 12.5 mg PO DAILY 11/23/24 11/24/24 spironolactone 50 mg tablet 50 mg PO DAILY 11/23/24 11/24/24 zinc gluconate 50 mg tablet 50 mg PO DAILY 11/23/24 11/24/24 bumetanide 1 mg tablet 1 mg PO UD 11/24/24 11/24/24 hydrocodone 5 mg-acetaminophen 325 1 tab PO UD 11/24/24 11/24/24 mg tablet pramipexole 0.5 mg tablet 0.5 mg PO UD 11/24/24 11/24/24 Previous Rx's Medication Instructions Recorded ondansetron 4 mg disintegrating 4 mg PO Q6H PRN nausea and 09/10/22 tablet vomiting #14 tabs cephalexin 500 mg capsule 500 mg PO Q6H 7 days #28 caps 11/19/24 Results & Data (ED) Vital Signs Vital Signs - 24 hr 11/24/24 09:12 11/24/24 09:37 11/24/24 09:42 Temperature 36.9 C Temperature Source Oral Pulse Rate 60 107 H 92 H Pulse Rhythm Regular Pulse Strength Normal Respiratory Rate 18 14 Respiratory Effort / Characteristics Non-Labored Spontaneous Respiratory Depth Normal Respiratory Pattern Regular Blood Pressure 147/87 H Blood Pressure Mean 107 Blood Pressure Position Sitting Pulse Oximetry 98 Oxygen Delivery Method Room Air Sepsis Recent Fever Within 48 Hours No Sepsis New/Unexplained Change in Mental Status No Sepsis Action Taken by Nursing No Action Required 11/24/24 09:49 11/24/24 09:54 11/24/24 10:00 Temperature Temperature Source Pulse Rate 106 H Pulse Rhythm Pulse Strength Respiratory Rate 18 Respiratory Effort / Characteristics Respiratory Depth Respiratory Pattern Blood Pressure 122/81 Blood Pressure Mean 90 Blood Pressure Position Pulse Oximetry Oxygen Delivery Method Room Air Sepsis Recent Fever Within 48 Hours Sepsis New/Unexplained Change in Mental Status Sepsis Action Taken by Nursing 11/24/24 10:00 11/24/24 10:00 11/24/24 10:00 Temperature Temperature Source Pulse Rate 95 H Pulse Rhythm Pulse Strength Respiratory Rate 18 Respiratory Effort / Characteristics Respiratory Depth Respiratory Pattern Blood Pressure 122/81 122/81 Blood Pressure Mean 90 90 Blood Pressure Position Pulse Oximetry Oxygen Delivery Method Sepsis Recent Fever Within 48 Hours Sepsis New/Unexplained Change in Mental Status Sepsis Action Taken by Nursing 11/24/24 10:12 11/24/24 10:21 11/24/24 10:24 Temperature Temperature Source Pulse Rate 103 H 82 82 Pulse Rhythm Pulse Strength Respiratory Rate 18 18 19 Respiratory Effort / Characteristics Respiratory Depth Respiratory Pattern Blood Pressure Blood Pressure Mean Blood Pressure Position Pulse Oximetry Oxygen Delivery Method Sepsis Recent Fever Within 48 Hours Sepsis New/Unexplained Change in Mental Status Sepsis Action Taken by Nursing 11/24/24 10:30 11/24/24 12:00 11/24/24 12:21 Temperature Temperature Source Pulse Rate Pulse Rhythm Pulse Strength Respiratory Rate 23 18 Respiratory Effort / Characteristics Respiratory Depth Respiratory Pattern Blood Pressure 113/69 Blood Pressure Mean 102 Blood Pressure Position Pulse Oximetry Oxygen Delivery Method Sepsis Recent Fever Within 48 Hours Sepsis New/Unexplained Change in Mental Status Sepsis Action Taken by Nursing 11/24/24 12:41 11/24/24 12:42 11/24/24 12:54 Temperature Temperature Source Pulse Rate 81 95 H Pulse Rhythm Pulse Strength Respiratory Rate 24 Respiratory Effort / Characteristics Respiratory Depth Respiratory Pattern Blood Pressure 116/83 Blood Pressure Mean 102 Blood Pressure Position Pulse Oximetry Oxygen Delivery Method Sepsis Recent Fever Within 48 Hours Sepsis New/Unexplained Change in Mental Status Sepsis Action Taken by Nursing 11/24/24 12:57 11/24/24 13:00 11/24/24 13:06 Temperature Temperature Source Pulse Rate 87 102 H Pulse Rhythm Pulse Strength Respiratory Rate 22 Respiratory Effort / Characteristics Respiratory Depth Respiratory Pattern Blood Pressure 125/82 Blood Pressure Mean 103 Blood Pressure Position Pulse Oximetry Oxygen Delivery Method Sepsis Recent Fever Within 48 Hours Sepsis New/Unexplained Change in Mental Status Sepsis Action Taken by Nursing 11/24/24 13:12 Temperature Temperature Source Pulse Rate 87 Pulse Rhythm Pulse Strength Respiratory Rate 20 Respiratory Effort / Characteristics Respiratory Depth Respiratory Pattern Blood Pressure Blood Pressure Mean Blood Pressure Position Pulse Oximetry Oxygen Delivery Method Sepsis Recent Fever Within 48 Hours Sepsis New/Unexplained Change in Mental Status Sepsis Action Taken by Nursing Laboratory Data 11/24/24 09:40 11/24/24 09:40 Lab Results 11/24/24 11/24/24 Range/Units 09:40 11:22 WBC 6.06 (4.8-10.8) K/ul RBC 4.21 (4.20-5.40) M/uL Hgb 12.5 (12.0-16.0) g/dl Hct 36.6 L (37.0-47.0) % MCV 86.9 (80.0-100.0) fL MCH 29.7 (25.0-34.0) pg MCHC 34.2 (32.0-36.0) g/dL RDW Std Deviation 49.1 H (36.4-46.3) fL RDW Coeff of Xavier 15.5 H (11.5-14.5) % Plt Count 220 (130-400) K/uL MPV 9.1 L (9.4-12.4) fL Immature Gran % (Auto) 0.3 % Neut % (Auto) 68.5 % Lymph % (Auto) 11.1 % [place] % (Auto) 11.9 % Eos % (Auto) 7.9 % Baso % (Auto) 0.3 % Neut # (Auto) 4.15 (1.40-6.50) K/uL Lymph # (Auto) 0.67 L (1.20-3.40) K/uL [place] # (Auto) 0.72 H (0.11-0.59) K/uL Eos # (Auto) 0.48 (0.00-0.50) K/uL Baso # (Auto) 0.02 (0.00-0.20) K/uL Immature Gran # (Auto) 0.02 (0.01-0.20) K/uL ESR 54 H (0-30) mm/hr PT 10.4 (9.0-12.0) Seconds INR 1.0 (0.9-1.1) APTT 31 (21-31) Seconds PTT Ratio 1.2 Sodium 132 L (136-145) mmol/L Potassium 4.3 (3.5-5.1) mmol/L Chloride 95 L (98-107) mmol/L Carbon Dioxide 29 (21-32) mmol/L Anion Gap 8 (3-11) BUN 41 H (6-23) mg/dl Creatinine 1.34 H (0.6-1.2) mg/dl Est Cr Clr Drug Dosing Not Reportable eGFR 37.90 BUN/Creatinine Ratio 30.6 H (10-20) Glucose 96 (70-99(Fasting)) mg/dl Calcium 9.9 (8.6-10.3) mg/dl Magnesium 1.8 (1.7-2.4) mg/dl Total Bilirubin 0.7 (0.2-1.0) mg/dl AST 20 (13-39) U/L ALT 16 (7-52) U/L Alkaline Phosphatase 66 (34-104) U/L C-Reactive Protein 4.80 H (0-0.5) mg/dl B-Natriuretic Peptide 110 H (0-100) pg/ml Total Protein 7.0 (6.0-8.3) gm/dl Albumin 3.9 (3.4-5.0) gm/dl Globulin 3.1 (2.5-4.0) gm/dl Albumin/Globulin Ratio 1.3 (0.9-2) Urine Color Yellow Urine Appearance Clear (Clear) Urine pH 6.0 (4.5-7.5) Ur Specific [place] 1.008 (1.000-1.030) Urine Protein Negative (Negative) Urine Glucose (UA) Negative (Negative) Urine Ketones Negative (Negative) Urine Blood Negative (Negative) Urine Nitrite Negative (Negative) Urine Bilirubin Negative (Negative) Urine Urobilinogen Negative (Negative) Ur Leukocyte Esterase Negative (Negative) Administered Medications Bumetanide 2 mg/ Syringe 8 mls @ 4 mls/min IV BID@0900,1700 [facility] Stop: 12/24/24 16:59 Last Admin: 11/24/24 16:48 Dose: 4 mls/min Documented By: MARIA D Pramipexole Dihydrochloride (Pramipexole Dihydrochlo 0.5 Mg Tab) 1 mg PO TODAY@1800 [facility] Stop: 12/24/24 17:59 Last Admin: 11/24/24 18:14 Dose: 1 mg Documented By: MARIA D Pramipexole Dihydrochloride (Pramipexole Dihydrochlo 0.5 Mg Tab) 1.5 mg PO DAILY@1400 [facility] Stop: 12/24/24 15:44 Last Admin: 11/24/24 15:55 Dose: 1.5 mg Documented By: MARIA D Tramadol HCl (Tramadol Hcl 50 Mg Tablet) 50 mg PO Q6H PRN PRN Reason: Mod/Severe Pain (6-10) on NRS Stop: 12/24/24 16:38 Last Admin: 11/24/24 18:06 Dose: 50 mg Documented By: MARIA D Discontinued Medications Acetaminophen (Acetaminophen 325 Mg Tab) 650 mg PO NOW STA Stop: 11/24/24 13:04 Last Admin: 11/24/24 13:15 Dose: 650 mg Documented By: ROLAND Ceftriaxone Sodium (Rocephin) 2,000 mg in 50 mls @ 100 mls/hr IV NOW STA Stop: 11/24/24 14:01 Last Infusion: 11/24/24 14:24 Dose: Infused Documented By: Admin: 11/24/24 13:49 Dose: 100 mls/hr Documented By: KARLOS Imaging Data Radiologist's Impression: Chest X-Ray 11/24/24 09:25 XR chest 1V portable HISTORY: 89 years-old Female bilateral lower leg edema, eval CHF COMPARISON: 11/19/2024 TECHNIQUE: AP view chest FINDINGS: Cardiac silhouette is enlarged. Pulmonary vascular congestion suggested. No pneumothorax, pleural effusion, airspace consolidation or pulmonary edema. Mild chronic interstitial coarsening. Bilateral shoulder arthroplasties. Degenerative changes of the spine. IMPRESSION: Cardiomegaly with pulmonary vascular congestion. ACT 112: Negative or not required by law. The above report was generated using voice recognition software. It may contain grammatical, syntax or spelling errors. Electronically signed by: Mendoza Boyer M.D. 11/24/2024 10:13 AM Venous Doppler Study 11/24/24 09:25 BILATERAL LOWER EXTREMITY VENOUS DOPPLER HISTORY: Bilateral lower extremity pain/swelling - eval DVT COMPARISON STUDY: 10/20/2024 FINDINGS: Subcutaneous edema. There is normal compressibility, flow, and augmentation within the bilateral lower extremity deep venous systems. IMPRESSION: No DVT within the right or left lower extremity. ACT 112: Negative or not required by law. Electronically signed by: Mendoza Boyer M.D. 11/24/2024 11:09 AM Discharge Plan Visit Data Chief Complaint: Swelling/Edema to Extremity Stated Complaint: LEGS SWOLLEN AND SORE ED Provider: Glendy Brennan ED Midlevel Provider: Zoya Hills Discharge Problem: Leg edema, RUSTY (acute kidney injury), Cellulitis of both lower extremities, Chronic venous insufficiency Patient Disposition: Admitted As Inpatient Condition: Good Discharge Instructions Interventions: ED Discharge Assessment Last Done: 11/24/24 14:53
[2024-11-24 10:02] LABS: Basophils # (auto) 0.02 K/uL (0.00-0.20); Basophils % (auto) 0.3 %; Eosinophils # (auto) 0.48 K/uL (0.00-0.50); Eosinophils % (auto) 7.9 %; Hematocrit (blood only) 36.6 % (37.0-47.0); Hemoglobin 12.5 g/dl (12.0-16.0); Immature Granulocytes # (auto) 0.02 K/uL (0.01-0.20); Immature Granulocytes % (auto) 0.3 %; Lymphocytes # (auto) 0.67 K/uL (1.20-3.40); Lymphocytes % (auto) 11.1 %; Mean Corpuscular Hemoglobin 29.7 pg (25.0-34.0); Mean Corpuscular Hgb Conc 34.2 g/dL (32.0-36.0); Mean Corpuscular Volume 86.9 fL (80.0-100.0); Mean Platelet Volume 9.1 fL (9.4-12.4); Monocytes # (auto) 0.72 K/uL (0.11-0.59); Monocytes % (auto) 11.9 %; Neutrophils # (auto) 4.15 K/uL (1.40-6.50); Neutrophils % (auto) 68.5 %; Platelet Count 220 K/uL (130-400); RDW Coefficient of Variation 15.5 % (11.5-14.5); RDW Standard Deviation 49.1 fL (36.4-46.3); Red Blood Count 4.21 M/uL (4.20-5.40); White Blood Count 6.06 K/ul (4.8-10.8)
[2024-11-24 10:13] LABS: Alanine Aminotransferase 16 U/L (7-52); Albumin Globulin Ratio 1.3 (0.9-2); Albumin Level 3.9 gm/dl (3.4-5.0); Alkaline Phosphatase 66 U/L (34-104); Anion Gap 8 (3-11); Aspartate Aminotransferase 20 U/L (13-39); BUN Creatinine Ratio 30.6 (10-20); Bilirubin,Total 0.7 mg/dl (0.2-1.0); Blood Urea Nitrogen 41 mg/dl (6-23); Calcium 9.9 mg/dl (8.6-10.3); Carbon Dioxide 29 mmol/L (21-32); Chloride 95 mmol/L (98-107); Globulin 3.1 gm/dl (2.5-4.0); Glucose 96 mg/dl (70-99(Fasting)); Magnesium 1.8 mg/dl (1.7-2.4); Potassium 4.3 mmol/L (3.5-5.1); Sodium 132 mmol/L (136-145)
--- NOTE | 2024-11-24 10:15 | XRay Report ---
XR chest 1V portable HISTORY: 89 years-old Female bilateral lower leg edema, eval CHF COMPARISON: 11/19/2024 TECHNIQUE: AP view chest FINDINGS: Cardiac silhouette is enlarged. Pulmonary vascular congestion suggested. No pneumothorax, pleural eff usion, airspace consolidation or pulmonary edema. Mild chronic interstitial coarsening. Bilateral clifford ulder arthroplasties. Degenerative changes of the spine. IMPRESSION: Cardiomegaly with pulmonary vascular congestion. ACT 112: Negative or not required by law. The above report was generated using voice recognition software. It may contain grammatical, syntax o r spelling errors. Electronically signed by: Mendoza Boyer M.D. 11/24/2024 10:13 AM
[2024-11-24 10:28] LABS: Partial Thromboplastin Ratio 1.2; Partial Thromboplastin Time 31 Seconds (21-31); Prothrombin Time 10.4 Seconds (9.0-12.0)
--- NOTE | 2024-11-24 11:11 | Ultrasound Report ---
BILATERAL LOWER EXTREMITY VENOUS DOPPLER HISTORY: Bilateral lower extremity pain/swelling - eval DVT COMPARISON STUDY: 10/20/2024 FINDINGS: Subcutaneous edema. There is normal compressibility, flow, and augmentation within the bila teral lower extremity deep venous systems. IMPRESSION: No DVT within the right or left lower extremity. ACT 112: Negative or not required by law. Electronically signed by: Mendoza Boyer M.D. 11/24/2024 11:09 AM
--- OUTSIDE RECORDS SUMMARY | 2024-11-24 11:19 | External Medical Summary | Continuity of Care Document ---
Author Name Unknown Organization [facility] 0 [facility] [address] [place] [id number] Care Team Providers Care Strategic Advisor Name Role Phone Mike Guan Primary Care Physician [phone] Encounter [facility] [phone] Date(s): 11/21/24 - 11/21/24 [facility] 1849 [facility] 207 [facility] [address] [id number] [phone] Encounter Diagnosis Restless leg syndrome(Discharge Diagnosis) - 11/21/24 CKD stage 3b, GFR 30-44 ml/min(Discharge Diagnosis) - 11/21/24 Hypertension(Discharge Diagnosis) - 11/21/24 Lower extremity edema(Discharge Diagnosis) - 11/21/24 Hypothyroid(Discharge Diagnosis) - 11/21/24 Umbilical hernia(Discharge Diagnosis) - 11/21/24 Discharge Disposition: Home or Self Care Attending Physician: MD Quiroga Dongsheng Encounter Type: Clinic Allergies, Adverse Reactions, Alerts No Known Medication Allergies Assessment and Plan Extracted from: Title:Office Visit Note Author:MD Quiroga Dongsh eng Date:11/21/24 1.Lower extremity edema STATUS: Chronic stable: Chronic uncontrolled: x Acute uncomplicated: Acute illness with systemic symptoms: Undiagnosed new problems with uncertain prognosis: Chronic illnesses with exacerbation, progression, or side effects of treatment: 1 acute complicated injury: DATA: Review of prior external note(s) from each unique source: ER record Review of the result(s) of each unique test: cmp, cmp.US in Oct Ordering of each unique test: Assessment requiring independent historian(s): GOAL: Resolution PLAN: f/u vascular surgery.continueKeflex.IncreaseLasixto 40mg daily.Elevation.refer to nephrology CARRI. ordered bmp, mag, TSH, FT4. 2.Hypertension STATUS: Chronic stable: x Chronic uncontrolled: Acute uncomplicated: Acute illness with systemic symptoms: Undiagnosed new problems with uncertain prognosis: Chronic illnesses with exacerbation, progression, or side effects of treatment: 1 acute complicated injury: DATA: Review of prior external note(s) from each unique source: Review of the result(s) of each unique test: x cmp, cmp Ordering of each unique test: Assessment requiring independent historian(s): GOAL: bp<150/90and avoidlowbp PLAN: continue losartan and [id number] BID.Monitor home BP closely. Callif bp<120/60.f/unephrology . 3.Hypothyroid STATUS: Chronic stable: Chronic uncontrolled: x mild. Acute uncomplicated: Acute illness with systemic symptoms: Undiagnosed new problems with uncertain prognosis: Chronic illnesses with exacerbation, progression, or side effects of treatment: 1 acute complicated injury: DATA: Review of prior external note(s) from each unique source: Review of the result(s) of each unique test: tsh 09/01 Ordering of each unique test: x Assessment requiring independent historian(s): GOAL: Resolution PLAN: recheck tsh/ft4 4.Restless leg syndrome (Possible) STATUS: Chronic stable: Chronic uncontrolled: x Acute uncomplicated: Acute illness with systemic symptoms: Undiagnosed new problems with uncertain prognosis: Chronic illnesses with exacerbation, progression, or side effects of treatment: 1 acute complicated injury: DATA: Review of prior external note(s) from each unique source: neurology note Review of the result(s) of each unique test: cbc, ferritin, iron, tsh, cmp Ordering of each unique test: Assessment requiring independent historian(s): GOAL: Reduce symptoms PLAN: on tramadol. Gabapentin does not help. was seen in [facility] - recommended to try low dose methadone or Suboxone but "they can't prescribe it". Advised to f/u [facility] neurology to see whether they can prescribe. 5.CKD stage 3b, GFR 30-44 ml/min STATUS: Chronic stable: Chronic uncontrolled: x Acute uncomplicated: Acute illness with systemic symptoms: Undiagnosed new problems with uncertain prognosis: Chronic illnesses with exacerbation, progression, or side effects of treatment: 1 acute complicated injury: DATA: Review of prior external note(s) from each unique source: ER record Review of the result(s) of each unique test: cmp, cbc, pth, vitD, UA Ordering of each unique test: Assessment requiring independent historian(s): GOAL: Reduce symptoms PLAN: referred to nephrology - did not get a call - refer again. 6.Umbilical hernia STATUS: Chronic stable: Chronic uncontrolled: x Acute uncomplicated: Acute illness with systemic symptoms: Undiagnosed new problems with uncertain prognosis: Chronic illnesses with exacerbation, progression, or side effects of treatment: 1 acute complicated injury: DATA: Review of prior external note(s) from each unique source: Review of the result(s) of each unique test: Ordering of each unique test: Assessment requiring independent historian(s): GOAL:Resolution PLAN: refer to surgery call prn. f/u 1 wk Immunizations Given and Recorded Vaccine Date Status Refusal Reason influenza virus vaccine, inactivated 08/10/24 Eduardo rded influenza virus vaccine, inactivated 1 07/19/22 Re corded influenza virus vaccine, inactivated 07/09/21 Give n influenza virus vaccine, inactivated 08/01/20 Eduardo rded SARS-CoV-2 mRNA (tozinameran 5y-11y) 2 07/19/22 Re corded SARS-CoV-2 (COVID-19) mRNA BNT-162b2 vax 02/07/22 Recorded SARS-CoV-2 (COVID-19) mRNA BNT-162b2 vax 07/31/21 Recorded SARS-CoV-2 (COVID-19) mRNA BNT-162b2 vax 12/08/20 Recorded SARS-CoV-2 (COVID-19) mRNA BNT-162b2 vax 3 11/17/20 [...] 9Result Comment: 2020-10-25: Historical information-source unspecified Medications aspirin Start: 09/27/24 10:53:00 AM EST, 81 mg =, PO, Daily Start Date: 09/27/24 Status: Ordered Repeat number: 1 cephalexin 500 mg oral capsule TAKE 1 CAPSULE BY MOUTH EVERY 6 HOURS FOR 7 DAYS Start Date: 10/24/24 Status: Ordered Repeat number: 1 desonide 0.05% topical cream Start: 06/03/22 10:25:00 AM EDT, 1 appl, topical, bid, Disp# 15 g, Refills: 4, to affected area, Pharmacy: [id number] Start Date: 06/03/22 Status: Ordered Quantity: 15.0 Unit: g Repeat number: 5 escitalopram 10 mg oral tablet Start: 09/15/24 12:19:00 PM EST, 1 tab, PO, Daily Start Date: 09/15/24 Status: Ordered Repeat number: 1 furosemide 40 mg oral tablet Start: 11/21/24 10:12:00 AM EST, 1 tab, PO, Daily, Disp# 30 tab, Pharmacy: [id number] Start Date: 11/21/24 Stop Date: 12/21/24 Status: Ordered Quantity: 30.0 Unit: tab Repeat number: 1 gabapentin 100 mg oral capsule Start: 09/27/24 12:06:00 PM EST, See Instructions, Disp# 90 cap, Refills: 5, Week 1-2: 100mg at night Week 3-4: 200mg at night Week 5 onwards: 300mg at night, Pharmacy: [facility] Start Date: 09/27/24 Status: Ordered Quantity: 90.0 Unit: cap Repeat number: 6 gabapentin 300 mg oral capsule Start: 10/24/24 2:56:00 PM EST, 2 cap, PO, qhs, Disp# 60 cap, Pharmacy: [id number] Start Date: 10/24/24 Stop Date: 11/23/24 Status: Ordered Quantity: 60.0 Unit: cap Repeat number: 1 hydrALAZINE 25 mg oral tablet Start: 10/20/24 10:03:00 AM EST, 1 tab, PO, tid, Disp# 90 tab, Refills: 0, Pharmacy: [facility] Start Date: 10/20/24 Status: Ordered Quantity: 90.0 Unit: tab Repeat number: 1 inhaler spacer Start: 06/10/24 4:38:00 PM EDT, See Instructions, Disp# 1 each, Use with albuterol inhaler, Pharmacy: [facility] [id number] Start Date: 06/10/24 Status: Ordered Quantity: 1.0 Unit: each Repeat number: 1 lidocaine-prilocaine 2.5%-2.5% topical cream Start: 11/20/23 5:27:00 PM EST, See Instructions, Disp# 30 g, Refills: 3, apply to affected area bid,Pharmacy: [facility] [id number] Start Date: 11/20/23 Status: Ordered Quantity: 30.0 Unit: g Repeat number: 4 losartan 100 mg oral tablet Start: 10/17/24 11:57:00 AM EST, See Instructions, Disp# 90 tab, Refills: 0, Take 1 tablet by mouth once daily, Pharmacy: [facility] [id number] Start Date: 10/17/24 Status: Ordered Quantity: 90.0 Unit: tab Repeat number: 1 Metamucil Start: 12/12/22 1:24:00 PM EST, 1 tab, PO, Daily Start Date: 12/12/22 Status: Ordered Repeat number: 1 promethazine 12.5 mg oral tablet Start: 05/18/24 3:17:00 PM EDT, 1 tab, PO, Daily, Disp# 30 tab, as needed for motion sickness, PRN: as needed for motion sickness, Pharmacy: [facility] [id number] Start Date: 05/18/24 Status: Ordered Quantity: 30.0 Unit: tab Repeat number: 1 spironolactone 50 mg oral tablet Start: 09/09/24 10:03:00 AM EST, 1 tab, PO, bid, Disp# 60 tab, Refills: 3, Pharmacy: [facility] [id number] Start Date: 09/09/24 Stop Date: 01/07/25 Status: Ordered Quantity: 60.0 Unit: tab Repeat number: 4 traMADol 50 mg oral tablet Start: 11/07/24 5:03:00 PM EST, 1 tab, PO, q8h, Disp# 90 tab, Refills: 0, PRN: as needed for pain, Pharmacy: [facility]/pharmacy #[id number] Start Date: 11/07/24 Stop Date: 12/07/24 Status: Ordered Quantity: 90.0 Unit: tab Repeat number: 1 traMADol 50 mg oral tablet Start: 10/24/21 1:20:00 PM EST, See Instructions, take 3 times daily as needed Start Date: 10/24/21 Status: Ordered Repeat number: 1 TruBiotks Start: 09/27/24 10:54:00 AM EST, TruBiotks, PO, Daily Start Date: 09/27/24 Status: Ordered Repeat number: 1 Vitamin B12 Start: 09/27/24 10:55:00 AM EST, unsure, PO, Daily Start Date: 09/27/24 Status: Ordered Repeat number: 1 Vitamin D3 Start: 07/04/21 3:55:00 PM EDT, unsure, PO, Daily Start Date: 07/04/21 Status: Ordered Repeat number: 1 zinc (as gluconate) 50 mg oral tablet Start: 10/25/20 9:43:00 AM EST, PO, Daily Start Date: 10/25/20 Status: Ordered Repeat number: 1 Mental Status 11/21/24 Barriers to Learning one year Acuity of illness Mandatory Health Literacy Documentation Yes Health Literacy Communication Barriers N ever Primary Language Icelandic Problem List Condition Confirmation Course Effective Dates Status H ealth Status Informant Aortic root dilation Confirmed Active Arthritis Confirmed Active CKD stage 3b, GFR 30-44 ml/min Confirmed Active Hearing aid worn Confirmed Active Easy bruising Confirmed Active Lower extremity edema Confirmed Active Macular degeneration, wet Confirmed Active Fatigue Confirmed Active Hypertension Confirmed Active Hyponatremia Confirmed Active Hypothyroid Confirmed Active LVH (left ventricular hypertrophy) Confirmed Active Colon cancer Confirmed Active Urinary incontinence, mixed Confirmed Active Motion sickness Confirmed Active Venous insufficiency, peripheral Confirmed Active Idiopathic polyneuropathy Confirmed Active Sciatica Confirmed Active Shoulder pain Confirmed Active Spinal stenosis Confirmed Active Superficial thrombophlebitis Confirmed Active Tachycardia Confirmed Active Umbilical hernia Confirmed Active Diagnosis Diagnosis Type Effective Dates Health Status Clinical Service Informant Hypertension Discharge Diagnosis 11/21/24 Non-Specified Lower extremity edema Discharge Diagnosis 11/21/24 Non-Specified CKD stage 3b, GFR 30-44 ml/min Discharge Diagnosis 11/21/24 Non-Specified Hypothyroid Discharge Diagnosis 11/21/24 Non-Specified Umbilical hernia Discharge Diagnosis 11/21/24 Non-Specified Procedures Procedure Date Related Diagnosis Body Site Status Reverse total shoulder arthr oplasty (Left) 02/05/24 Completed Procedure 1 01/20/24 Completed Intravitreal steroid injection 2 04/23/23 Completed Lumbar epidural steroid injection 02/17/23 Completed Eye injection 3 01/13/23 Completed Eye injection 4 12/2022 Completed Eye examination 5 11/04/22 [facility] ed Head CT 6 09/10/22 Completed Lumbar epidural steroid injection 05/20/[address] of abdomen and pelvis wit h intravenous contrast 7 02/28/22 Completed Echocardiogram 8 06/28/21 Complete d Lumbar epidural steroid injection 35 Completed X-ray 9 Completed 1VenaSeal treatment right great saphenous vein. 2avastin 1.25 mg injection left eye 3left eye 4left eye 5intravitreal [facility]: 1. [facility] is no [...] to oldest [Reference Range]: 1 Patient Weight 88.9 kg (11/21/24 9:38 AM) Heart Rate 85 bpm (11/21/24 9:38 AM) Respiratory Rate 18 br/min (11/21/24 9:38 AM) Blood Pressure 130/84mmHg (11/21/24 9:38 AM) Cuff Pulse Pressure 46 mmHg (11/21/24 9:38 AM) Social History Social History Type Response Smoking Status Never smoked cigaret daryl Sex Female Sex Representation Female (finding) [facility] Outpt Note * MD Junaid, Keny: PERFORM Event Display: FCM Outpt Note Authored Date: [id number] Chief Complaint BLE edema x2 wks. [facility] ER Thursday. Leaking fluid History of Present Illness leg swelling:worse x 2wks. was seen in ER on 11/19. on Keflex and Lasix - does not seem to help. Can't do PT or use compression stockingsdue to leg pain. BP: on meds.home BP has beengood.no dizzy. umbilicus mass: for yrs. no pain. slowly getting bigger Review of Systems No fever/chills. No headache. No respiratory symptoms. No chest pain/shortness of breath. No nausea/vomiting. No abdominal pain. No change with bowels. No new urinary symptoms. Other systems reviewed and are neg. Physical Exam Vitals & Measurements HR:85(Monitored) RR:18 BP:130/84 SpO2:92% WT:88.9kg WT:88.900kg(Dosing) PHQ2 Data(Data Documented on:11/21/2024 09:36) Emotional health assessment NEGATIVE General: No acute distress. Nontoxic. Respiratory:Lungs are clear to auscultation, Respirations non-labored, Breath sounds equal ALEX. Cardiovascular:Normal rate, Regular rhythm, No murmur, Rubs, gallops. Gastrointestinal:Soft, Non-tender, Non-distended, Normal bowel sounds. umbilicus mass Musculoskeletal:2+pitting edema with mild diffuse erythema Neurologic:Alert, Oriented, No focal deficits. Psychiatric:Cooperative, Appropriate mood & affect. Assessment/Plan 1.Lower extremity edema STATUS: Chronic stable: Chronic uncontrolled: x Acute uncomplicated: Acute illness with systemic symptoms: Undiagnosed new problems with uncertain prognosis: Chronic illnesses with exacerbation, progression, or side effects of treatment: 1 acute complicated injury: DATA: Review of prior external note(s) from each unique source: ER record Review of the result(s) of each unique test: cmp, cmp.US in Oct Ordering of each unique test: Assessment requiring independent historian(s): GOAL: Resolution PLAN: f/u vascular surgery.continueKeflex.IncreaseLasixto 40mg daily.Elevation.refer to nephrology CARRI. ordered bmp, mag, TSH, FT4. 2.Hypertension STATUS: Chronic stable: x Chronic uncontrolled: Acute uncomplicated: Acute illness with systemic symptoms: Undiagnosed new problems with uncertain prognosis: Chronic illnesses with exacerbation, progression, or side effects of treatment: 1 acute complicated injury: DATA: Review of prior external note(s) from each unique source: Review of the result(s) of each unique test: x cmp, cmp Ordering of each unique test: Assessment requiring independent historian(s): GOAL: bp<150/90and avoidlowbp PLAN: continue losartan and [id number] BID.Monitor home BP closely. Callif bp<120/60.f/unephrology. 3.Hypothyroid STATUS: Chronic stable: Chronic uncontrolled: x mild. Acute uncomplicated: Acute illness with systemic symptoms: Undiagnosed new problems with uncertain prognosis: Chronic illnesses with exacerbation, progression, or side effects of treatment: 1 acute complicated injury: DATA: Review of prior external note(s) from each unique source: Review of the result(s) of each unique test: tsh 09/01 Ordering of each unique test: x Assessment requiring independent historian(s): GOAL: Resolution PLAN:recheck tsh/ft4 4.Restless leg syndrome (Possible) STATUS: Chronic stable: Chronic uncontrolled: x Acute uncomplicated: Acute illness with systemic symptoms: Undiagnosed new problems with uncertain prognosis: Chronic illnesses with exacerbation, progression, or side effects of treatment: 1 acute complicated injury: DATA: Review of prior external note(s) from each unique source: neurology note Review of the result(s) of each unique test: cbc, ferritin, iron, tsh, cmp Ordering of each unique test: Assessment requiring independent historian(s): GOAL: Reduce symptoms PLAN: on tramadol. Gabapentin does not help.was seen in [facility] - recommended to try low dose methadone or Suboxone but "they can't prescribe it". Advised to f/u [facility] neurology to see whether they can prescribe. 5.CKD stage 3b, GFR 30-44 ml/min STATUS: Chronic stable: Chronic uncontrolled: x Acute uncomplicated: Acute illness with systemic symptoms: Undiagnosed new problems with uncertain prognosis: Chronic illnesses with exacerbation, progression, or side effects of treatment: 1 acute complicated injury: DATA: Review of prior external note(s) from each unique source: ER record Review of the result(s) of each unique test: cmp, cbc, pth, vitD, UA Ordering of each unique test: Assessment requiring independent historian(s): GOAL: Reduce symptoms PLAN: referred to nephrology - did not get a call - refer again. 6.Umbilical hernia STATUS: Chronic stable: Chronic uncontrolled: x Acute uncomplicated: Acute illness with systemic symptoms: Undiagnosed new problems with uncertain prognosis: Chronic illnesses with exacerbation, progression, or side effects of treatment: 1 acute complicated injury: DATA: Review of prior external note(s) from each unique source: Review of the result(s) of each unique test: Ordering of each unique test: Assessment requiring independent historian(s): GOAL:Resolution PLAN: refer to surgery call prn. f/u 1 wk Problem List/Past Medical History Ongoing Aortic root dilation Arthritis CKD stage 3b, GFR 30-44 ml/min Colon cancer Easy bruising Fatigue Hearing aid worn Hypertension Hyponatremia Hypothyroid Idiopathic polyneuropathy Lower extremity edema LVH (left ventricular hypertrophy) Macular degeneration, wet Motion sickness Restless leg syndrome Sciatica Shoulder pain Spinal stenosis Superficial thrombophlebitis Tachycardia Umbilical hernia Urinary incontinence, mixed Venous insufficiency, peripheral Resolved Cellulitis Chronic back pain Procedure/Surgical History Reverse total shoulder arthroplasty (Left)| Service Date: 02/05/2024rocedure| Service Date: 01/20/2024Intravitreal steroid injection| Service Date: 04/23/2023Lumbar epidural steroid injection| Service Date: 02/17/2023Eye injection| Service Date: 01/13/2023Eye injection| Service Date: Week of 12/10/2022Eye examination| Service Date: 11/04/2022Head CT| Service Date: 09/10/2022Lumbar epidural steroid injection| Service Date: 05/20/2022T of abdomen and pelvis with intravenous contrast| Service Date: 02/28/2022Echocardiogram| Service Date: 06/28/2021umbar epidural steroid injection| Service Date: 1935X-ray Medications aspirin, 81 mg, PO, Daily cephalexin(cephalexin 500 mg oral capsule) cholecalciferol(Vitamin D3), unsure, PO, Daily cyanocobalamin(Vitamin B12), unsure, PO, Daily desonide topical(desonide 0.05% topical cream), 1 appl, topical, bid, 4 refills escitalopram(escitalopram 10 mg oral tablet), 10 mg= 1 tab, PO, Daily furosemide(furosemide 40 mg oral tablet), 40 mg= 1 tab, PO, Daily gabapentin(gabapentin 300 mg oral capsule), 600 mg= 2 cap, PO, qhs gabapentin(gabapentin 100 mg oral capsule), See Instructions, 5 refills hydrALAZINE(hydrALAZINE 25 mg oral tablet), 1 tab, PO, tid inhalation accessory(inhaler spacer), See Instructions lidocaine-prilocaine topical(lidocaine-prilocaine 2.5%-2.5% topical cream), See Instructions, 3 refills losartan(losartan 100 mg oral tablet), See Instructions promethazine(promethazine 12.5 mg oral tablet), 12.5 mg= 1 tab, PO, Daily, PRN psyllium(Metamucil), 1 tab, PO, Daily spironolactone(spironolactone 50 mg oral tablet), 50 mg= 1 tab, PO, bid, 3 refills traMADol(traMADol 50 mg oral tablet), 50 mg= 1 tab, PO, q8h, PRN traMADol(traMADol 50 mg oral tablet), See Instructions unknown medication(TruBiotks), PO, Daily zinc gluconate(zinc (as gluconate) 50 mg oral tablet), PO, Daily Allergies No Known Medication Allergies Social History Smoking Status Never smoked cigarettes Intake (IView) Smoking History Cigarette smoker: Never smoked cigarettes Tobacco Product Use: Never used other tobacco products Smoker in House: No Family History Family history is negative Immunizations Vaccine Date Status influenza virus vaccine, inactivated 08/10/2024 Recorded influenza virus vaccine, inactivated 07/19/2022 Recorded Comments : Avi SARS-CoV-2 mRNA (torrie 5y-11y) 07/19/2022 Recorded Comments : Avi SARS-CoV-2 (COVID-19) mRNA BNT-162b2 vax 02/07/2022 Recorded SARS-CoV-2 (COVID-19) mRNA BNT-162b2 vax 07/31/2021 Recorded influenza virus vaccine, inactivated 07/09/2021 Given SARS-CoV-2 (COVID-19) mRNA BNT-162b2 vax 12/08/2020 Recorded SARS-CoV-2 (COVID-19) mRNA BNT-162b2 vax 11/17/2020 Recorded Comments : 2020-11-19: Historical information-source unspecified influenza virus vaccine, inactivated 08/01/2020 Recorded zoster vaccine, inactivated 01/17/2019 Recorded Comments : [...] Health Maintenance Pending(in the next year) OverDue Medicare Annual Wellness Visit due12/13/23and every 1year Due Adult Social Determinants of Health Screening due11/21/24Unknown Frequency Falls Plan of Care due11/21/24Unknown Frequency Due In Future Adult Influenza Vaccine not due until04/11/25and every 1year Lipid Screening not due until11/15/25and every 182 Satisfied(in the past 1 year) Satisfied Adult Influenza Vaccine on08/10/24.Satisfied by MD Junaid, Keny Body Mass Index on11/07/24.Satisfied by YOLANDA Hollingsworth Kathryn Electronic Signature on File Electronically Reviewed/Signed by: Keny Quiroga MD Author Signature Dt/Tm:11/21/2024 10:22 AM Department of Family Medicine DJ Patient Care team information Care Team Personnel Name: STELLA Adan Tara Position: Nurse Pract - Family Med Member Role: Lifetime Relationship Address: [address] [place], [place] [address]com: [phone] Name: MD Freida [place] Position: Resident Member Role: Primary Care Provider Address: [address] [facility] [address] Telecom: [phone] Care Team Related Persons Name: KILO CAMARENA Name: ALMA AWAD Insurance Providers Guarantor name: VLADIMIR AWAD Health Plan Information #: 1 Payer: MEDICARE Member Number: [id number] Policy Number: NA Group Number: NA Health Plan Information #: 2 Payer: [facility] Member Number: [id number] Policy Number: NA Group Number: NA
--- NOTE | 2024-11-24 11:33 | Emergency Department Note ---
ED Visit Note I was consulted by the Advanced Practice Provider. I personally made/approved the management plan and take responsibility for the patient management. I performed a substantive portion of the visit. This includes the aspects of: -History/Physical -MDM .
[2024-11-24 11:36] LABS: Appearance Urine Clear (Clear); Bilirubin Urine Negative (Negative); Blood Urine Negative (Negative); Color Urine Yellow; Glucose Urine UA Negative (Negative); Ketones Urine Negative (Negative); Leukocyte Esterase Urine Negative (Negative); Nitrite Urine Negative (Negative); Protein Urine Negative (Negative); Specific Gravity Urine 1.008 (1.000-1.030); Urobilinogen Urine Negative (Negative)
--- NOTE | 2024-11-24 12:50 | History & Physical Report ---
Date of Service November 24, 2024 Assessment & Plan (1) Cellulitis of both lower extremities: (2) Leg edema: (3) RUSTY (acute kidney injury): Koby Huynh is an 89-year-old female with PMH of colon cancer, HTN, first-degree AV block, tremor, lumbar radiculopathy, and mixed urinary incontinence. She presented on 11/24 for bilateral lower extremity swelling, erythema, and pain x 2 to 3 weeks. She was originally seen in the ED on 11/19/2024, and discharged on Keflex, which she reports she has been taking. The pain is located below her hands bilaterally extending to the dorsal aspects of both feet. They extremely tender to palpation. She characterizes it as a constant, burning pain which she rates 9/10 at present. #Chronic venous stasis v B/L cellulitis Venous Doppler U/S revealed no DVT within RLE or LLE No leukocytosis; afebrile ESR and CRP ordered, pending Acetaminophen as needed for pain/fever Oxycodone as needed for breakthrough pain Empiric ceftriaxone 2000 x 1 Daily wound care for weeping wounds on the feet Wound care nurse consult appreciated #LE edema Echocardiogram on 12/07/2023 revealed LVEF at 65-70% CXR did reveal cardiomegaly with pulmonary vascular congestion BNP 110 on arrival (most recently 165 on 11/19/2024) Repeat echocardiogram ordered, pending Strict I&O monitoring Daily weights Hold bumetanide 1 mg p.o. BID Bumex 2 mg IV BID17 Continue spironolactone 50 mg p.o. daily #RUSTY Mild; BUN 41, creatinine 1.34 (baseline 0.91) Avoid nephrotoxic agents where possible Hold losartan Trend BMP Disposition: Admit to [facility] Full code Heart healthy, low-sodium diet VTE PPx: Heparin 5000u SQ q12h History of Present Illness Chief Complaint: Swelling/edema to extremity Primary Care Provider: Keny Quiroga Amina is an 89-year-old female with PMH of colon cancer, HTN, first-degree AV block, tremor, lumbar radiculopathy, and mixed urinary incontinence. She presented on 11/24 for bilateral lower extremity swelling, erythema, and pain x 2 to 3 weeks. She was originally seen in the ED on 11/19/2024, and discharged on Keflex, which she reports she has been taking. The pain is located below her hands bilaterally extending to the dorsal aspects of both feet. They extremely tender to palpation. She characterizes it as a constant, burning pain which she rates 9/10 at present. While she does not have ambulatory dysfunction, she does have extreme cramping in the back of her legs. Patient has been taking tramadol at home for the pain, which she reports helps. She denies prior history of cellulitis or MRSA infections. No prior history of diabetes. She does report blisters on her feet, and believes there might been some pus like drainage from them; she also reports weeping from the blister on her left foot. Patient took her regular morning medicine today; no recent change in medications. No history of DVT/PE. She denies prior history of heart failure. Patient reports she watches her salt intake, and reports no recent changes in weight. Patient denies smoking, tobacco use, or recent alcohol use. Vital stable at time of admission. ED course: ROS: Patient endorses pain in the lower legs b/l. Patient denies fever, chills, night-sweats, dizziness, lightheadedness, chest pain, SOB, cough, pleuritic CP, abdominal pain, N/V/D, changes in urinary/bowel habits. Allergies Allergy/AdvReac Type Severity Reaction Status Date / Time No Known Allergies Allergy Verified 11/23/24 12:59 Home Medications Medication Instructions Recorded Confirmed Type cyanocobalamin (vitamin B-12) 500 500 mcg PO QAM 05/01/20 11/24/24 History mcg tablet cholecalciferol (vitamin D3) 50 2,000 unit PO QAM 02/11/21 11/24/24 History mcg (2,000 unit) capsule losartan 100 mg tablet 100 mg PO QAM 02/11/21 11/24/24 History diphenhydramine HCl 25 mg tablet 25 mg PO HS PRN Sleep 07/16/21 11/24/24 History (Benadryl Allergy) ondansetron 4 mg disintegrating 4 mg PO Q6H PRN nausea and 09/10/22 11/24/24 Rx tablet vomiting #14 tabs psyllium husk 0.52 gram capsule 1.04 g PO QAM 08/18/23 11/24/24 History aspirin 81 mg tablet,delayed 81 mg PO DAILY 08/15/24 11/24/24 History release escitalopram oxalate 10 mg tablet 10 mg PO DAILY 09/21/24 11/24/24 History cephalexin 500 mg capsule 500 mg PO Q6H 7 days #28 caps 11/19/24 11/24/24 Rx lidocaine-prilocaine 2.5 %-2.5 % 1 applic topical DIRECTED 11/23/24 11/24/24 History topical cream promethazine 12.5 mg tablet 12.5 mg PO DAILY 11/23/24 11/24/24 History spironolactone 50 mg tablet 50 mg PO DAILY 11/23/24 11/24/24 History zinc gluconate 50 mg tablet 50 mg PO DAILY 11/23/24 11/24/24 History bumetanide 1 mg tablet 1 mg PO UD 11/24/24 11/24/24 History hydrocodone 5 mg-acetaminophen 325 1 tab PO UD 11/24/24 11/24/24 History mg tablet pramipexole 0.5 mg tablet 0.5 mg PO UD 11/24/24 11/24/24 History Past Med/Surg History Problem List Venous insufficiency, peripheral Urinary incontinence, mixed Umbilical hernia Tachycardia Superficial thrombophlebitis Spinal stenosis Shoulder pain Sciatica Motion sickness Macular degeneration, wet Hypothyroid Hearing aid worn Fatigue Easy bruising Colon cancer CKD stage 3b, GFR 30-44 ml/min Arthritis Cellulitis of both lower extremities (Acute) Bilateral edema of lower extremity (Acute) Myofascial pain Lumbar radiculopathy Leg edema COVID-19 (Acute) Encounter for cosmetic procedure Superficial thrombosis of left lower extremity RUSTY (acute kidney injury) (Acute) Cellulitis (Acute) Tremor Post-operative pain (Acute) RUSTY (acute kidney injury) (Acute) Cellulitis (Acute) Acute hyponatremia (Acute) Osteoarthritis of left shoulder Encounter for pre-operative examination Elevated troponin (Acute) Cellulitis (Acute) Chronic venous insufficiency Rotator cuff arthropathy of left shoulder Cellulitis of right leg (Acute) Cellulitis of right ankle Benign skin lesion of cheek Pes anserine bursitis Edema (Acute) to bilateral LE edema L>R following with vascular surgery- scheduled for upcoming Venaseal before TSA Hypokalemia (Acute) Electrolyte abnormality First degree AV block Chronic 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 Sharp Mildly dilated ascending aorta at 3.9cm per 11/2023 ECHO Restless legs syndrome (Acute) HTN (hypertension) (Chronic) History of colon cancer, stage I (Chronic) 2013- s/p colon resection- no chemo or XRT Frequency of urination and polyuria Chronic Exertional dyspnea (Acute) pt denies any SOB with exertion at this time Eczema of lower extremity Medical History Bacteremia Surgical History Status post reverse total replacement of left shoulder (~01/2024) History of thumb surgery History of cholecystectomy History of cardiac cath (2013) History of tubal ligation (1970) History of knee replacement History of colonoscopy History of cataract surgery (2009) Family History Father CHF (congestive heart failure) Cardiac arrest Hypertension Mother Cardiac arrest Cardiac disorder Hypertension Stroke Sister Hypertension Stroke Aunt Stomach cancer Other No family history of adverse response to anesthesia Denies family history of Ovarian cancer Prostate cancer Myocardial infarction Breast cancer Bleeding disorder Colorectal cancer Social History Smoking Status: Never smoker Second Hand Exposure: No; Do You Dip or Chew Tobacco: No; Hx Alcohol Use: Yes Alcohol type: wine Alcohol Intake Frequency: 2-4 x/Month Hx Substance Use: No Preferred Language: Indonesian Communication Ability: Effective Visual Impairment: No Limitations Hearing Ability: Use of Hearing Aid Drywall Hanger Helper Required: No Beliefs That Will Affect Care: None marital status: Current Living Situation: Spouse Current Living Situation Comment: living with current occupational status: retired How many Children do You have: 4 Feels Safe at Home: Yes Childhood Exposure to Second-Hand Smoke: Yes Diet: regular caffeine: Yes (3 cups daily) Dental Care, Regularly: Yes Physical Activity Frequency: Does not Exercise Seatbelt Use: always Sunscreen Use: No Do you think of yourself as: straight/heterosexual Gender Identity: Female Assistive Devices: Glasses, Hearing Aid - Bilateral, Lift Chair and Walker Review of Systems 2 Review of Systems: See HPI above Physical Exam 2 Physical Exam: General: Moderate distress secondary to lower extremity pain bilaterally; non- toxic appearing; frail appearing; cooperative; SpO2 98% on RA HEENT: normocephalic, atraumatic; no scleral icterus; PERRLA; vision intact; slightly hard of hearing Neck: supple; no lymphadenopathy; trachea midline Skin: warm, dry without signs of tenting; no cyanosis; no rashes, bruising, lesions, or erythema noted CV: chest wall NTP; RRR; S1/S2 normal; no murmurs/rubs/gallops; pulses intact and symmetric at radial, DP, and PT Lungs: no acute respiratory distress; symmetrical chest wall expansion; clear breath sounds across all lung sanchez w/o adventitious sounds; no wheezing ABD: Soft, NTP; BS present; no rebound/guarding; no distention MSK: no tics or fasciculations; no edema noted in the LEs b/l, nonerythematous LEs: Erythematous and warm to touch bilaterally extending from the knee to the dorsal aspect of the feet (see photos below); erythema is now extending above the previous tavia on the right lower extremity; both legs are extremely tender to palpation; weeping wound noted on the dorsal aspect of the left foot; no purulent drainage appreciated Neuro: A&Ox3; normal mood and affect; fluent speech; no focal deficits; sensation intact and symmetric in lower extremities bilaterally Results & Data Results & Data Vital Signs (Past 12 Hours) Vital Signs Temp Pulse Resp BP Pulse Ox O2 Del Method 11/24/24 12:42 81 11/24/24 12:41 116/83 11/24/24 12:21 18 11/24/24 12:00 23 11/24/24 10:30 113/69 11/24/24 10:24 82 19 11/24/24 10:21 82 18 11/24/24 10:12 103 H 18 11/24/24 10:00 122/81 11/24/24 10:00 122/81 11/24/24 10:00 95 H 18 11/24/24 10:00 122/81 11/24/24 09:54 106 H 18 11/24/24 09:49 Room Air 11/24/24 09:42 92 H 14 11/24/24 09:37 107 H 11/24/24 09:12 36.9 C 60 18 147/87 H 98 Room Air Laboratory Results Abnormal lab results 11/24/24 Range/Units 09:40 Hct 36.6 L (37.0-47.0) % RDW Std Deviation 49.1 H (36.4-46.3) fL RDW Coeff of Xavier 15.5 H (11.5-14.5) % MPV 9.1 L (9.4-12.4) fL Lymph # (Auto) 0.67 L (1.20-3.40) K/uL Schley # (Auto) 0.72 H (0.11-0.59) K/uL Sodium 132 L (136-145) mmol/L Chloride 95 L (98-107) mmol/L BUN 41 H (6-23) mg/dl Creatinine 1.34 H (0.6-1.2) mg/dl BUN/Creatinine Ratio 30.6 H (10-20) B-Natriuretic Peptide 110 H (0-100) pg/ml Diagnostic Findings Chest X-Ray 11/24/24 09:25 XR chest 1V portable HISTORY: 89 years-old Female bilateral lower leg edema, eval CHF COMPARISON: 11/19/2024 TECHNIQUE: AP view chest FINDINGS: Cardiac silhouette is enlarged. Pulmonary vascular congestion suggested. No pneumothorax, pleural effusion, airspace consolidation or pulmonary edema. Mild chronic interstitial coarsening. Bilateral shoulder arthroplasties. Degenerative changes of the spine. IMPRESSION: Cardiomegaly with pulmonary vascular congestion. ACT 112: Negative or not required by law. The above report was generated using voice recognition software. It may contain grammatical, syntax or spelling errors. Electronically signed by: Mendoza Boyer M.D. 11/24/2024 10:13 AM Venous Doppler Study 11/24/24 09:25 BILATERAL LOWER EXTREMITY VENOUS DOPPLER HISTORY: Bilateral lower extremity pain/swelling - eval DVT COMPARISON STUDY: 10/20/2024 FINDINGS: Subcutaneous edema. There is normal compressibility, flow, and augmentation within the bilateral lower extremity deep venous systems. IMPRESSION: No DVT within the right or left lower extremity. ACT 112: Negative or not required by law. Electronically signed by: Mendoza Boyer M.D. 11/24/2024 11:09 AM ECG Additional Comments: ECG revealed sinus tachycardia with first-degree AV block at 107 bpm; QTc 461 Code Status & VTE Plan Code Status Full code VTE Prophylaxis Plan VTE Prophylaxis will be ordered: Yes Supervising Physician Co-Signing Physician Notes Patient seen and examined, chart reviewed, case discussed with Mynor Gustafson PA-C and I agree with the assessment and plan as above except as otherwise noted Labs and images reviewed Amina is an 89-year-old female with a past medical history of lumbar to radiculopathy, chronic venous insufficiency, first-degree heart block, CKD 3, hypothyroidism, hypertension who presents to the emergency department with worsening bilateral lower extremity swelling and discomfort progressive over the last week. Progressive pain and swelling of her lower extremities bilaterally for a week. Was placed on Keflex as an outpatient but has had progressive symptoms. She was seen by nephrology 11/23/2024, switched from Lasix to Bumex 1 mg twice daily, and spironolactone was decreased from twice daily to daily. Hydralazine was stopped. Patient was recommended to use venous stasis mobilization strategies. Metolazone adjunct therapy was discussed but not added at that time. Due to progressive worsening in her legs she presented the ER for further evaluation. Venous stasis edema Chest x-ray: Cardiomegaly with pulmonary vascular congestion, no significant edema/effusions are noted Bilateral lower extremity venous Doppler: Negative for DVT TTE 12/07/2023: EF 65 to 70%, moderate concentric LVH, no regional wall motion abnormalities DSE 12/2023: Normal without evidence of inducible ischemia EKG: Sinus with first-degree AV block, incomplete right bundle branch block. Morphology similar to 09/2024 and no acute ischemic changes noted Bumex twice daily with mobilization precautions Dose of Rocephin has been ordered. No leukocytosis/fever, she reports she did feel like she had a little bit of drainage from her foot but is not appreciated prior to admission. She has bright warm, tender erythema however this is symmetrical in bilateral and without systemic signs of toxicity/systemic infection, and no leukocytosis so they represent venous stasis edema. Will follow clinically and hold off on additional antibiotics to reevaluation at this time CKD 3 Baseline creatinine 0.91.3 Admitting creatinine 1.34 Diuresis as noted above, will need to be done with venous mobilizations strategies Agree with above PG Care Time/CCT Total # of Minutes Spent Total Time Spent with Patient: Total time spent is greater than 50% in coordination of care (as documented) at patient's floor/unit and/or counseling patient: Coding [place] [address] INT INP/OBS CARE 3/75MIN Patient Type Established Medical Decision Making High Complexity Diagnoses Cellulitis of both lower extremities L03.115; L03.116 Leg edema R60.0 RUSTY (acute kidney injury) N17.9
[2024-11-24] MEDS: ACETAMINOPHEN 325 MG TAB PO STA (13:15)
[2024-11-24] MEDS: cefTRIAXone SODIUM 2,000 MG/50 ML BAG IV STA (13:49)
[2024-11-24] MEDS ORDERED: oxyCODONE HCL IR 5 MG TAB (IMMEDIATE RELEASE) PO PRN (15:25)
--- NOTE | 2024-11-24 15:26 | Electrocardiogram Report ---
Test Reason : Blood Pressure : */* mmHG Vent. Rate : 107 BPM Atrial Rate : 107 BPM P-R Int : 246 ms QRS Dur : 102 ms QT Int : 346 ms P-R-T Axes : 99 80 -32 degrees QTcB Int : 461 ms Sinus tachycardia with 1st degree A-V block Incomplete right bundle branch block Inferior infarct (cited on or before 06-Jun-2024) Abnormal ECG When compared with ECG of 21-Sep-2024 10:58, No significant change was found Confirmed by Reji Álvarez ([id number]) on 11/24/2024 3:25:44 PM Referred By: REFERRED SELF Confirmed By: Reji Álvarez
[2024-11-24] MEDS: PRAMIPEXOLE DIHYDROCHLO 0.5 MG TAB PO SCH ×2 (15:55→18:14)
--- NOTE | 2024-11-24 16:12 | XCELERA ---
[id number]
[2024-11-24] MEDS: BUMETANIDE 2 MG in SYRINGE 0 ML IV SCH (16:48)
[2024-11-24] MEDS: traMADol HCL 50 MG TABLET PO PRN (18:06)
[2024-11-24] MEDS: HEPARIN SOD 5,000 UNIT/0.5 ML VIAL SQ SCH (21:03)
[2024-11-24] MEDS: MELATONIN 3 MG TAB PO PRN (21:04)
[2024-11-25] MEDS: ACETAMINOPHEN 325 MG TAB PO PRN (01:23)
[2024-11-25 09:04] LABS: Calcium 9.5 mg/dl (8.6-10.3); Potassium 4.2 mmol/L (3.5-5.1)
[2024-11-25 09:10] LABS: BUN Creatinine Ratio 31.9 (10-20); C Reactive Protein 4.14 mg/dl (0-0.5); Creatinine Clr Calc Pharmacy 35.8 ml/min
[2024-11-25 09:16] LABS: Basophils # (auto) 0.02 K/uL (0.00-0.20); Basophils % (auto) 0.4 %; Eosinophils # (auto) 0.46 K/uL (0.00-0.50); Eosinophils % (auto) 9.4 %; Hematocrit (blood only) 37.8 % (37.0-47.0); Hemoglobin 12.5 g/dl (12.0-16.0); Immature Granulocytes # (auto) 0.02 K/uL (0.01-0.20); Immature Granulocytes % (auto) 0.4 %; Lymphocytes # (auto) 0.73 K/uL (1.20-3.40); Mean Corpuscular Hemoglobin 28.9 pg (25.0-34.0); Mean Corpuscular Hgb Conc 33.1 g/dL (32.0-36.0); Mean Corpuscular Volume 87.3 fL (80.0-100.0); Monocytes # (auto) 0.57 K/uL (0.11-0.59); Monocytes % (auto) 11.7 %; Neutrophils # (auto) 3.08 K/uL (1.40-6.50); Neutrophils % (auto) 63.1 %; Platelet Count 227 K/uL (130-400); RDW Coefficient of Variation 15.3 % (11.5-14.5); RDW Standard Deviation 49.3 fL (36.4-46.3); Red Blood Count 4.33 M/uL (4.20-5.40); White Blood Count 4.88 K/ul (4.8-10.8)
[2024-11-25] MEDS: ASPIRIN 81 MG ECTAB PO SCH (09:45)
[2024-11-25] MEDS: SPIRONOLACTONE 25 MG TAB PO SCH (09:46)
[2024-11-25] MEDS: PROMETHAZINE HCL 25 MG TAB PO SCH (09:46)
[2024-11-25] MEDS: ESCITALOPRAM OXALATE 10 MG TAB PO SCH (09:46)
[2024-11-25] MEDS: cefTRIAXone SODIUM 2,000 MG/50 ML BAG IV SCH (14:10)
--- NOTE | 2024-11-25 17:59 | Hospitalist Progress Note ---
Date of Service November 25, 2024 Assessment & Plan (1) Cellulitis of both lower extremities: (2) Leg edema: (3) RUSTY (acute kidney injury): Plan Amina is an 89-year-old female with PMH of colon cancer, HTN, first-degree AV block, tremor, lumbar radiculopathy, and mixed urinary incontinence. She presented on 11/24 for bilateral lower extremity swelling, erythema, and pain x 2 to 3 weeks. She was originally seen in the ED on 11/19/2024, and discharged on Keflex, which she reports she has been taking. Patient return to the ED due to constant burning pain with extreme tenderness to palpation of her lower extremities bilaterally. Venous Doppler negative for DVT within lower ex tremities bilaterally. No leukocytosis, afebrile. ESR elevated at 54 on admission, CRP elevated at 4. #Chronic venous stasis with superimposed cellulitis infection bilaterally Restarted IV Ceftriaxone 2g daily due to concern for underlying infection given the exquisite tenderness of her legs bilaterally Tylenol 650 mg q4h PRN fever/mild pain, tramadol 50 mg PO q6h PRN mod-severe pain Daily wound care for weeping wounds on the feet Wound care nurse consult appreciated #LE edema CXR did reveal cardiomegaly with pulmonary vascular congestion BNP 110 on arrival (most recently 165 on 11/19/2024) Echocardiogram 11/24 with LVEF 65-70%, and no regional wall motion abnormalities, moderate concentric LVH, mildly dilated ascending aorta 4.2 cm, no significant change compared to November 2023 Strict I&O monitoring, daily weights Continue Bumex 2 mg IV BID17 -- hold home Bumex 1 mg p.o. BID Continue spironolactone 50 mg p.o. daily Improvement in lower extremity edema bilaterally 11/25 #RUSTY Mild RUSTY on admission with creatinine 1.34 (baseline 0.9), now resolved Hold losartan Repeat BMP in AM VTE PPx: Heparin 5000u SQ q12h Dispo: Anticipate discharge home in the next 24-48 hours depending on lower extremity improvement Updated at bedside Admission and Anticipated Discharge Date Admission Date: November 24, 2024 Supervising Physician Co-Signing Physician Notes Attending Attestation - Chart reviewed, care plan d/w MAKENZIE Velez. I agree w/ the mcmahan components of her documentation. Keyshawn Guzman MD Subjective Patient seen and evaluated at bedside with her present. She reports that her lower extremities feel about the same as yesterday. They continue to be painful to the touch, with burning/achy sensations. She states that her legs are not this beefy red at baseline. We discussed resuming IV antibiotics for underlying skin/soft tissue infection. Questions/concerns were answered/ad dressed. No additional complaints or concerns at this time. Physical Exam Physical Exam: General: No acute distress, nondiaphoretic, frail-appearing. Cardiac: Regular rate and rhythm without murmurs gallops or rubs. Pulm: Normal respiratory effort. 95% on room air. Neuro: A&O x3. No focal neurological deficits. Lower extremities: Chronic venous stasis with superimposed infection bilaterally. Circumferential beefy red erythema bilaterally. Swelling reduced with more wrinkles on skin than on admission. Wound on top left foot covered in dressing. Results & Data Results & Data Vital Signs (Past 12 Hours) Vital Signs Temp Pulse Resp BP Pulse Ox O2 Del Method 11/25/24 15:20 98.4 F 85 17 130/82 95 Room Air 11/25/24 07:20 Room Air 11/25/24 06:59 97.7 F 83 16 160/79 H 96 Room Air Laboratory Results Reviewed CBC with differential Reviewed BMP, CRP Diagnostic Findings Reviewed CXR Reviewed venous Doppler PG Care Time/CCT Total # of Minutes Spent Total Time Spent with Patient: Total time spent is greater than 50% in coordination of care (as documented) at patient's floor/unit and/or counseling patient: Coding Level of Care Code 28161 SUB INP/OBS CARE 3/50MIN Diagnoses Cellulitis of both lower extremities L03.115; L03.116 Leg edema R60.0 RUSTY (acute kidney injury) N17.9
[2024-11-26 07:44] LABS: BUN Creatinine Ratio 34.6 (10-20); Calcium 9.9 mg/dl (8.6-10.3); Creatinine Clr Calc Pharmacy 30.9 ml/min; Potassium 4.2 mmol/L (3.5-5.1)
--- NOTE | 2024-11-26 12:29 | Hospitalist Progress Note ---
Date of Service November 26, 2024 Assessment & Plan (1) Cellulitis of both lower extremities: (2) Leg edema: (3) RUSTY (acute kidney injury): Plan Amina is an 89-year-old female with PMH of colon cancer, HTN, first-degree AV block, tremor, lumbar radiculopathy, and mixed urinary incontinence. She presented on 11/24 for bilateral lower extremity swelling, erythema, and pain x 2 to 3 weeks. She was originally seen in the ED on 11/19/2024, and discharged on Keflex, which she reports she has been taking. Patient return to the ED due to constant burning pain with extreme tenderness to palpation of her lower extremities bilaterally. Venous Doppler negative for DVT within lower ex tremities bilaterally. No leukocytosis, afebrile. ESR elevated at 54 on admission, CRP elevated at 4. #Chronic venous stasis with superimposed cellulitis infection bilaterally Continue IV Ceftriaxone 2g daily; improvement in erythema, swelling, and pain Tylenol 650 mg q4h PRN fever/mild pain, tramadol 50 mg PO q6h PRN mod-severe pain Daily wound care for weeping wounds on the feet Wound care nurse consult appreciated #LE edema CXR did reveal cardiomegaly with pulmonary vascular congestion BNP 110 on arrival (most recently 165 on 11/19/2024) Echocardiogram 11/24 with LVEF 65-70%, and no regional wall motion abnormalities, moderate concentric LVH, mildly dilated ascending aorta 4.2 cm, no significant change compared to November 2023 Strict I&O monitoring, daily weights Continue spironolactone 50 mg p.o. daily Resumed home regimen Bumex 1 mg PO BID #RUSTY Mild RUSTY on admission with creatinine 1.34 (baseline 0.9), initially resolved but now with Cr at 1.30 -- encourage oral fluids Hold losartan, discontinued IV Bumex 2 mg BID and resumed home regimen as above Repeat BMP in AM VTE PPx: Heparin 5000u SQ q12h Dispo: Anticipate discharge home in the next 24-48 hours depending on lower extremity improvement and renal function Updated at bedside Adjusted diuretics Admission and Anticipated Discharge Date Admission Date: November 24, 2024 Supervising Physician Co-Signing Physician Notes Attending Attestation - Chart reviewed, care plan d/w MAKENZIE Velez. I agree w/ the mcmahan components of her documentation. Keyshawn Guzman MD Subjective Patient seen and evaluated at bedside with her present. She reports that her legs feel much better today. She notes they are still somewhat tender, but the significant pain/burning sensations are improved. We discussed her lab results from this morning showing RUSTY. Encouraged patient to drink fluids throughout the day. Discussed her antibiotic and diuretic regimens. No additional complaints or concerns at this time. Physical Exam Physical Exam: General: No acute distress, nondiaphoretic, frail-appearing. Cardiac: Regular rate and rhythm without murmurs gallops or rubs. Pulm: Normal respiratory effort. 95% on room air. Neuro: A&O x3. No focal neurological deficits. Lower extremities: Chronic venous stasis with superimposed infection bilaterally. Circumferential erythema improving bilaterally with reduction from previously marked borders. Swelling reduced with more wrinkles on skin than on admission. Wound on top left foot covered in dressing. Results & Data Results & Data Vital Signs (Past 12 Hours) Vital Signs Temp Pulse Resp BP Pulse Ox O2 Del Method 11/26/24 07:45 Room Air 11/26/24 07:45 97.5 F L 94 H 20 138/84 94 Room Air Laboratory Results Reviewed BMP PG Care Time/CCT Total # of Minutes Spent Total Time Spent with Patient: Total time spent is greater than 50% in coordination of care (as documented) at patient's floor/unit and/or counseling patient: Coding Level of Care Code 79312 SUB INP/OBS CARE 3/50MIN Diagnoses Cellulitis of both lower extremities L03.115; L03.116 Leg edema R60.0 RUSTY (acute kidney injury) N17.9
[2024-11-26 15:24] VITALS: RESP 18
[2024-11-26] MEDS: BUMETANIDE 1 MG TAB PO SCH (17:51)
[2024-11-26 20:21] VITALS: TEMP 97.7
[2024-11-27 08:04] VITALS: BP 134/87; PULSE 97; O2SAT 92
[2024-11-27 08:23] LABS: BUN Creatinine Ratio 36.5 (10-20); Calcium 9.7 mg/dl (8.6-10.3); Creatinine Clr Calc Pharmacy 29.2 ml/min
--- NOTE | 2024-11-27 11:44 | Discharge Summary ---
Discharge Summary Date of Service November 27, 2024 Principal Dx & Hospital Course #1 = Principal Diagnosis (1) Cellulitis of both lower extremities: (2) Leg edema: (3) RUSTY (acute kidney injury): Koby Huynh is an 89-year-old female with PMH of colon cancer, HTN, first-degree AV block, tremor, lumbar radiculopathy, and mixed urinary incontinence. She presented on 11/24 for bilateral lower extremity swelling, erythema, and pain x 2 to 3 weeks. She was originally seen in the ED on 11/19/2024, and discharged on Keflex, which she reports she has been taking. Patient return to the ED due to constant burning pain with extreme tenderness to palpation of her lower extremities bilaterally. Venous Doppler negative for DVT within lower extremities bilaterally. No leukocytosis, afebrile. ESR elevated at 54 on admission, CRP elevated at 4. #Chronic venous stasis with superimposed cellulitis infection bilaterally Treated with Ceftriaxone IV while inpatient received 3 doses total Daily wound care for weeping wounds on the feet Significantly improved LE bilaterally. Discussed PT's recommendation of rehab; patient reported they evaluated her while her legs were still painful/swollen but now that they are improved, she has returned to her functional baseline and requested return home on discharge. confirms she is at her baseline status Discharged on Keflex 500 mg QID x 4 more days, Tramadol 50 mg PO q6h PRN severe/breakthrough LE pain #LE edema CXR did reveal cardiomegaly with pulmonary vascular congestion BNP 110 on arrival (most recently 165 on 11/19/2024) Echocardiogram 11/24 with LVEF 65-70%, and no regional wall motion abnormalities, moderate concentric LVH, mildly dilated ascending aorta 4.2 cm, no significant change compared to November 2023 Strict I&O monitoring, daily weights Continue spironolactone 50 mg p.o. daily Continue Bumex 1 mg PO BID #RUSTY Mild RUSTY on admission with creatinine 1.34 (baseline 0.9), initially resolved but returned with Cr 1.37 on day of discharge. Suspect from poor oral intake, encouraged oral fluid intake. Euvolemic on exam Hold losartan until outpatient follow-ups with PCP/nephro Patient already scheduled for outpatient BMP this upcoming week for her outpatient appointments -- will defer f/u on these results to outpatient providers VTE PPx: Heparin 5000u SQ q12h Dispo: Anticipate discharge home in the next 24-48 hours depending on lower extremity improvement and renal function Updated at bedside Adjusted diuretics Notes For Next Care Provider Monitor kidney function -- mild RUSTY on discharge, plan for outpatient labs this week with PCP and nephrology appointments already scheduled per patient/ Medication Changes From Visit Keflex QID x 4 days Tramadol 50 mg PRN x 8 tablets Hold Losartan until outpatient f/u appts Admission HPI Per Admitting Provider Amina is an 89-year-old female with PMH of colon cancer, HTN, first-degree AV block, tremor, lumbar radiculopathy, and mixed urinary incontinence. She presented on 11/24 for bilateral lower extremity swelling, erythema, and pain x 2 to 3 weeks. She was originally seen in the ED on 11/19/2024, and discharged on Keflex, which she reports she has been taking. The pain is located below her hands bilaterally extending to the dorsal aspects of both feet. They extremely tender to palpation. She characterizes it as a constant, burning pain which she rates 9/10 at present. While she does not have ambulatory dysfunction, she does have extreme cramping in the back of her legs. Patient has been taking tramadol at home for the pain, which she reports helps. She denies prior history of cellulitis or MRSA infections. No prior history of diabetes. She does report blisters on her feet, and believes there might been some pus like drainage from them; she also reports weeping from the blister on her left foot. Patient took her regular morning medicine today; no recent change in medications. No history of DVT/PE. She denies prior history of heart failure. Patient reports she watches her salt intake, and reports no recent changes in weight. Patient denies smoking, tobacco use, or recent alcohol use. Vital stable at time of admission. ED course: ROS: Patient endorses pain in the lower legs b/l. Patient denies fever, chills, night-sweats, dizziness, lightheadedness, chest pain, SOB, cough, pleuritic CP, abdominal pain, N/V/D, changes in urinary/bowel habits. Admission Exam Per Admitting Provider General: Moderate distress secondary to lower extremity pain bilaterally; non- toxic appearing; frail appearing; cooperative; SpO2 98% on RA HEENT: normocephalic, atraumatic; no scleral icterus; PERRLA; vision intact; slightly hard of hearing Neck: supple; no lymphadenopathy; trachea midline Skin: warm, dry without signs of tenting; no cyanosis; no rashes, bruising, lesions, or erythema noted CV: chest wall NTP; RRR; S1/S2 normal; no murmurs/rubs/gallops; pulses intact and symmetric at radial, DP, and PT Lungs: no acute respiratory distress; symmetrical chest wall expansion; clear breath sounds across all lung sanchez w/o adventitious sounds; no wheezing ABD: Soft, NTP; BS present; no rebound/guarding; no distention MSK: no tics or fasciculations; no edema noted in the LEs b/l, nonerythematous LEs: Erythematous and warm to touch bilaterally extending from the knee to the dorsal aspect of the feet (see photos below); erythema is now extending above the previous tavia on the right lower extremity; both legs are extremely tender to palpation; weeping wound noted on the dorsal aspect of the left foot; no purulent drainage appreciated Neuro: A&Ox3; normal mood and affect; fluent speech; no focal deficits; sensation intact and symmetric in lower extremities bilaterally Discharge Exam General: No acute distress, nondiaphoretic, frail-appearing. Cardiac: Regular rate and rhythm without murmurs gallops or rubs. Pulm: Clear to auscultation without wheezes, rhonchi, rales. No respiratory distress. 94% on room air. Neuro: A&O x3. No focal neurological deficits. Lower extremities: Chronic venous stasis changes bilaterally. Significantly improved cellulitis infection bilaterally. Beefy red circumferential erythema now resolved. Swelling significantly reduced bilaterally. Wound on top left foot covered in dressing. Photo attached below. Discharge Plan Discharge Items Patient Disposition: Home - Self-Care Reason For Visit: LE EDEMA B/L Discharge Diagnosis: Bilateral lower extremity cellulitis Condition on Discharge: Good Activity: Resume your previous activity Non-emergency contact: Primary Care Provider Call non-emergency contact if: you have any medication questions and your symptoms worsen Follow-up/Referrals: Keny Quiroga [Primary Care Provider] - (Follow-up in 1-2 weeks) Diet: Heart Healthy and Low Sodium (2gm) Addtl Attending Provider Instructions: Mrs. Casillas, Burke were admitted to the hospital due to a cellulitis infection. Cellulitis is an infection of the skin/soft tissues caused by bacteria. Bacteria can enter the body through broken skin; this can happen with a cut, scratch, or insect bite. You have been treated in the hospital with IV antibiotics, and will be discharged with oral antibiotics to continue taking at home. Upon discharge from the hospital: * Take Keflex (oral antibiotic) every 6 hours x 4 additional days starting 11/28/24. This will complete 7 days worth of antibiotic treatment. Take this antibiotic as directed until it is gone. Take it even if you feel better. It treats the infection and prevents it from returning. Not taking all of the medicine can make future infections harder to treat. * Take Tylenol / Ibuprofen as needed for pain in your legs. * Take tramadol 50 mg every 6 hours NEEDED for severe/breakthrough pain in your legs. * Take your Bumex (diuretic) 1 mg twice daily. * HOLD taking your losartan until your outpatient follow-up appointments. * Follow-up with your PCP as scheduled. * Follow-up with your bingo caller (kidney doctor) as scheduled. * Get your labs checked outpatient as already scheduled. Please return to the hospital if you experience any of the following: Fever of 100.5 F or higher, trouble or pain with moving the joints above or below the infected area, discharge or pus draining from the infected area, pain that gets worse in or around the infected area, redness that gets worse and around the infected area, shaking chills, worsened swelling of the infected area, persistent vomiting, lightheadedness, dizziness, passing out, shortness of breath, difficulty breathing, or chest pain. It was a pleasure taking care of you while you were in the hospital! Pending Studies at Discharge: No Stand-Alone Forms: My [facility], Smoking Cessation Medications and DC Order Prescriptions: New tramadol 50 mg Tablet 50 mg PO Q6H PRN (Reason: pain) Qty: 8 0RF cephalexin 500 mg tablet 500 mg PO Q6H 4 Days Qty: 16 0RF Continued aspirin 81 mg tablet,delayed release (DR/EC) 81 mg PO DAILY diphenhydramine HCl [Benadryl Allergy] 25 mg tablet 25 mg PO HS PRN (Reason: Sleep) Hold Instructions: can worsen restless legs cholecalciferol (vitamin D3) 50 mcg (2,000 unit) capsule 2,000 unit PO QAM cyanocobalamin (vitamin B-12) 500 mcg tablet 500 mcg PO QAM zinc gluconate 50 mg tablet 50 mg PO DAILY escitalopram oxalate 10 mg tablet 10 mg PO DAILY promethazine 12.5 mg tablet 12.5 mg PO DAILY lidocaine-prilocaine 2.5-2.5 % cream 1 applic topical DIRECTED spironolactone 50 mg tablet 50 mg PO DAILY ondansetron 4 mg tablet,disintegrating 4 mg PO Q6H PRN (Reason: nausea and vomiting) Qty: 14 0RF psyllium husk 0.52 gram Capsule 1.04 g PO QAM hydrocodone-acetaminophen 5-325 mg tablet 1 tab PO UD Rx Instructions: 1 tab orally take one tablet at 4 PM, then take one tablet at bedtime; bumetanide 1 mg tablet 1 mg PO UD Rx Instructions: 1 mg po bid. no fill history available pramipexole 0.5 mg tablet 0.5 mg PO UD Rx Instructions: 0.5 mg orally; take 3 tablets at 2pm and take 2 tablets at 6pm Held losartan 100 mg tablet 100 mg PO QAM Hold Instructions: Provider's Order Discontinued cephalexin 500 mg capsule 500 mg PO Q6H 7 Days Qty: 28 0RF Discharge Orders: Discharge Order (Routine); Ordered 11/27/24 Ordered By: Anna Keith/Other Patient Handouts: Tramadol Oral Tablet, Cephalexin Oral Capsule, Cellulitis Dc Admission Data Admit Date/Time: 11/24/24 13:20 Attending Provider: Keyshawn Guzman Admit Provider: David Alba Primary Care Provider: Keny Quiroga Other Interventions: Discharge Summary Assessment (RN) Last Done: 11/27/24 11:50 Hospital Stay Data Consultations 11/24/24 12:54 ED Decision to Admit Stat Diagnostic Imagining Performed 11/24/24 09:25 US venous doppler LE BI Stat Pending Results Patient Have Any Pending Studies at Discharge: No Discharge Instructions Given to Patient (Per Discharging Provider) Burke Nielson were admitted to the hospital due to a cellulitis infection. Cellulitis is an infection of the skin/soft tissues caused by bacteria. Bacteria can enter the body through broken skin; this can happen with a cut, scratch, or insect bite. You have been treated in the hospital with IV antibiotics, and will be discharged with oral antibiotics to continue taking at home. Upon discharge from the hospital: * Take Keflex (oral antibiotic) every 6 hours x 4 additional days starting 11/28/24. This will complete 7 days worth of antibiotic treatment. Take this antibiotic as directed until it is gone. Take it even if you feel better. It treats the infection and prevents it from returning. Not taking all of the medicine can make future infections harder to treat. * Take Tylenol / Ibuprofen as needed for pain in your legs. * Take tramadol 50 mg every 6 hours NEEDED for severe/breakthrough pain in your legs. * Take your Bumex (diuretic) 1 mg twice daily. * HOLD taking your losartan until your outpatient follow-up appointments. * Follow-up with your PCP as scheduled. * Follow-up with your bingo caller (kidney doctor) as scheduled. * Get your labs checked outpatient as already scheduled. Please return to the hospital if you experience any of the following: Fever of 100.5 F or higher, trouble or pain with moving the joints above or below the infected area, discharge or pus draining from the infected area, pain that gets worse in or around the infected area, redness that gets worse and around the infected area, shaking chills, worsened swelling of the infected area, persistent vomiting, lightheadedness, dizziness, passing out, shortness of breath, difficulty breathing, or chest pain. It was a pleasure taking care of you while you were in the hospital! Supervising Physician Co-Signing Physician Notes Attending Attestation & Discharge Note: Chart reviewed, discharge care plan d/w MAKENZIE Velez. I agree w/ the mcmahan components of her discharge documentation. Of note - I did not perform a bedside visit or perform a physical exam on day of discharge. 89yo female with past h/o colon cancer, HTN, tremor, lumbar radiculopathy, and mixed urinary incontinence. Presented with b/l LE cellulitis in the setting of chronic venous insufficiency. Had been taking keflex pre-hospitalization without improvement. Following admission was treated with IV rocephin. As seen in the photos contained within this document her cellulitis improved very nicely with IV antibiotic therapy. She will complete a few more days of PO keflex upon transition home. Mild RUSTY - creatinine was stable at 1.3-1.4 during the hospitalization. She will need repeat creatinine within a week of discharge to ensure stability/normalization. Hold ARB upon discharge home. Keyshawn Guzman MD Total Time Total Time Spent Total Time Spent (In Minutes): Greater than 30 minutes spent completing this discharge process including direct patient care, medication reconciliation, documentation, review of labs and images, and coordination of care. Coding Level of Care Code 03154 INP/OBS DISCH >30 MIN Diagnoses Cellulitis of both lower extremities L03.115; L03.116 Leg edema R60.0 RUTSY (acute kidney injury) N17.9
== END 2024-11-27 13:27 | disposition home or self-care (01) | DRG 603 ==
LOC: ED 09:09 → SUATTDRO 13:20 → EDINP 13:20 → 3N 14:53
DX: I44.0 Atrioventricular block, first degree; N18.30 Chronic kidney disease, stage 3 unspecified; N17.9 Acute kidney failure, unspecified; M54.16 Radiculopathy, lumbar region; L03.115 Cellulitis of right lower limb; L03.116 Cellulitis of left lower limb; I87.8 Other specified disorders of veins; Z85.038 Personal history of other malignant neoplasm of large intestine; E03.9 Hypothyroidism, unspecified; I12.9 Hypertensive chronic kidney disease with stage 1 through stage 4 chronic kidney disease, or unspecified chronic kidney disease; N39.46 Mixed incontinence

== ENCOUNTER 2025-02-26 20:45 | Inpatient (IN) ==
--- OUTSIDE RECORDS SUMMARY | 2025-02-26 20:51 | External Medical Summary | Continuity of Care Document ---
Author Name Unknown Organization [facility] [address] [facility] 2 Address [address] [place] [id number] Care Team Providers Care Refuse Driver Name Role Phone Mike Guan Primary Care Physician [phone] Encounter [facility] [id number] Date(s): 02/23/25 - 02/23/25 [facility] [address] [place] [address] [place] [id number] Encounter Diagnosis Stasis dermatitis of both legs(Discharge Diagnosis) - 02/23/25 Cellulitis of other sites(Discharge Diagnosis) - 02/23/25 Purpura(Discharge Diagnosis) - 02/23/25 Lentigines(Discharge Diagnosis) - 02/23/25 Discharge Disposition: Home or Self Care Attending Physician: MD Kay, Amy Oneal Encounter Type: Clinic Allergies, Adverse Reactions, Alerts No Known Allergies Immunizations Given and Recorded Vaccine Date [...] Date: 09/27/24 Status: Ordered Repeat number: 1 benzonatate 100 mg oral capsule Start: 01/24/25 11:39:00 AM EDT, 1 cap, PO, qhs, Disp# 30 cap, Refills: 0, PRN: NEEDED FOR COUGH,Pharmacy: [id number] Start Date: 01/24/25 Status: Ordered Quantity: 30.0 Unit: cap Repeat number: 1 bumetanide 1 mg oral tablet Start: 11/28/24 3:39:00 PM EST, 1 tab, PO, Daily Start Date: 11/28/24 Status: Ordered Repeat number: 1 doxycycline hyclate 100 mg oral capsule Start: 02/23/25 11:14:00 AM EDT, See Instructions, Disp# 20 cap, Refills: 1, Take 1 capsule twice daily with food and abundant water. Do not lay down until 30 minutes after taking the dose., Pharmacy:[id number] Start Date: 02/23/25 Status: Ordered Quantity: 20.0 Unit: cap Repeat number: 2 Indications: Cellulitis of other sites; escitalopram 5 mg oral tablet Start: 01/30/25 10:27:00 AM EDT, See Instructions, Disp# 21 tab, half a pill PO daily, other Start Date: 01/30/25 Status: Ordered Quantity: 21.0 Unit: tab Repeat number: 1 inhaler spacer Start: 06/10/24 4:38:00 PM EDT, See Instructions, Disp# 1 each, Use with albuterol inhaler, Pharmacy: [id number] Start Date: 06/10/24 Status: Ordered Quantity: 1.0 Unit: each Repeat number: 1 lidocaine-prilocaine 2.5%-2.5% topical cream Start: 11/20/23 5:27:00 PM EST, See Instructions, Disp# 30 g, Refills: 3, apply to affected area bid,Pharmacy: [facility] [id number] Start Date: 11/20/23 Status: Ordered Quantity: 30.0 Unit: g Repeat number: 4 Metamucil Start: 12/12/22 1:24:00 PM EST, 1 tab, PO, Daily Start Date: 12/12/22 Status: Ordered Repeat number: 1 mometasone 0.1% topical ointment Start: 02/23/25 11:14:00 AM EDT, See Instructions, Disp# 45 g, Refills: 1, Apply 1 g once daily to affected areas of the legs until improved or for a maximum of 4 weeks continuously., Pharmacy: [facility] [id number] Start Date: 02/23/25 Status: Ordered Quantity: 45.0 Unit: g Repeat number: 2 Indications: Venous insufficiency (chronic) (peripheral); pramipexole 0.5 mg oral tablet Start: 12/30/24 10:35:00 AM EDT, 1 tab, PO, Daily Start Date: 12/30/24 Status: Ordered Repeat number: 1 promethazine 12.5 mg oral tablet Start: 05/18/24 3:17:00 PM EDT, 1 tab, PO, Daily, Disp# 30 tab, as needed for motion sickness, PRN: as needed for motion sickness, Pharmacy: [facility] [id number] Start Date: 05/18/24 Status: Ordered Quantity: 30.0 Unit: tab Repeat number: 1 spironolactone 50 mg oral tablet Start: 09/09/24 10:03:00 AM EST, 1 tab, PO, Daily, Disp# 30 tab, Refills: 3, Pharmacy: [id number] Start Date: 09/09/24 Stop Date: 01/07/25 Status: Ordered Quantity: 30.0 Unit: tab Repeat number: 4 traMADol 50 mg oral tablet Start: 02/13/25 10:45:00 AM EDT, 1 tab, PO, q8h, Disp# 90 tab, Refills: 0, PRN: NEEDED FOR PAIN, Pharmacy: [id number] Start Date: 02/13/25 Status: Ordered Quantity: 90.0 Unit: tab Repeat number: 1 traZODone 50 mg oral tablet Start: 01/30/25 10:28:00 AM EDT, 1.5 tab, PO, qhs, Disp# 45 tab, Refills: 3, other Start Date: 01/30/25 Stop Date: 05/30/25 Status: Ordered Quantity: 45.0 Unit: tab Repeat number: 4 triamcinolone 0.5% topical ointment Start: 01/30/25 10:13:00 AM EDT, 1 appl, topical, bid, Disp# 60 g, to affected area on R ankle, Pharmacy: [id number] Start Date: 01/30/25 Status: Ordered Quantity: 60.0 Unit: g Repeat number: 1 TruBiotks Start: 09/27/24 10:54:00 [...] Status: Ordered Repeat number: 1 Mental Status 02/23/25 Barriers to Learning one year Acuity of illness Mandatory Health Literacy Documentation Yes Communication Barrier Present No Health Literacy Communication Barriers N ever Primary Language Upper Sorbian Problem List Condition Confirmation Course Effective Dates Status H ealth Status Informant Anxiety Confirmed Active Aortic root dilation Confirmed Active Arthritis Confirmed Active Cellulitis of leg Confirmed Active Hypertensive kidney disease, stage III Confirmed Active CKD stage 3b, GFR 30-44 ml/min Confirmed Active Hearing aid worn Confirmed Active Easy bruising Confirmed Active Lower extremity edema Confirmed Active Macular degeneration, wet Confirmed Active Fatigue Confirmed Active History of colon cancer Confirmed Active Hypertension Confirmed Active Hyponatremia Confirmed Active Hypothyroid Confirmed Active Wound of left foot Confirmed Active LVH (left ventricular hypertrophy) Confirmed Active Urinary incontinence, mixed Confirmed Active Motion sickness Confirmed Active Venous insufficiency, peripheral Confirmed Active Idiopathic polyneuropathy Confirmed Active Sciatica Confirmed Active Shoulder pain Confirmed Active Spinal stenosis Confirmed Active Superficial thrombophlebitis Confirmed Active Tachycardia Confirmed Active Tremor Confirmed Active Umbilical hernia Confirmed Active Diagnosis Diagnosis Type Effective Dates Health Status Clinical Service Informant Stasis dermatitis of both legs Discharge Diagnosis 02/23/25 Non-Specified Cellulitis of other sites Discharge Diagnosis 02/23/25 Non-Specified Purpura Discharge Diagnosis 02/23/25 Non-Specified Lentigines Discharge Diagnosis 02/23/25 Non-Specified Procedures Procedure Date Related Diagnosis Body [...] injection of Avastin 1.25 mg left eye [address] [place] [address] Impression: 1. There is no hemorrhage, mass [...] Most recent to oldest [Reference Range]: 1 Temperature [36.5-37.9 DegC] 36 DegC *LOW* (02/23/25 11:23 AM) Blood Pressure 122/68mmHg (02/23/25 11:23 AM) Social History Social History Type Response Smoking Status Never smoked cigaret daryl Sex Female Sex Representation Female (finding) Patient Care team information Care Team Personnel Name: STELLA Adan Tara Position: Nurse Pract - Family Med Member Role: Lifetime Relationship Address: [address] [place] [address] Telecom: [phone] Name: MD Freida, Hanson Position: Resident Member Role: Primary Care Provider Address: [address] [place] [address] Telecom: [phone] Name: DO Brownlee Sameer Position: Resident Member Role: Lifetime Relationship Address: [address] [place] [address] Telecom: [phone] Care Team Related Persons Name: KILO CAMARENA Name: ALMA AWAD Insurance Providers Guarantor name: VLADIMIR AWAD Health Plan Information #: 2 Payer: [facility] Member Number: [id number] Policy Number: NA Group Number: NA Payer Identifier: [id number] Health Plan Information #: 1 Payer: MEDICARE Member Number: [id number] Policy Number: NA Group Number: NA Payer Identifier: [id number]
--- OUTSIDE RECORDS SUMMARY | 2025-02-26 20:52 | External Medical Summary | Summary of Care ---
Author Name Unknown Organization [facility] Address [address] [place] [place] [id number] Phone [phone] Care Team Providers Care Clock And Watch Hands Dipper Name Role Phone Makayla Adan Primary Care Provider [phone] Reason for Visit * Reason Comments Follow Up * Precert (Within 10 days (routine)) - Authorized Specialty Diagnoses / Procedures Referred By Nasra pritchard Referred To Contact Ophthalmology Diagnoses Exudative age-related macular degeneration, left eye, with active choroidal neovascularization (HCC) Procedures MN BEVACIZUMAB INJECTION MN INTRAVITREAL NJX PHARMACOLOGIC AGT SPX Mike Hollis DO Phone: tel: fax: Referral ID Status Reason Start Date Expiration Date V isits Requested Visits Authorized [id number] Authorized Precert 11/04/2022 10/11/2099 [id number] Encounter Details Date Type Department Care Team (Late st Contact Info) Description 01/17/2025 1:15 PM EDT Office Visit Ophthalmology, [facility] [address] [place] [phone] Mike Hollis DO [address] [place] [id number] Exudative age-related macular degeneration of right eye with active choroidal neovascularization (HCC)*; 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) Allergies No known active allergiesdocumented as of this encounter (statuses as of 02/07/2025) Medications Zinc 50 MG Oral Capsule Take 1 Capsule by mouth in the morning. Active Aspirin 81 MG Oral Tablet Delayed Release 1 Tablet. 07/04/20 Active Vitamin D3 1.25 MG (36752 UT) Oral Capsule Take 1 Capsule by mouth in the morning. Active PreserVision AREDS 2 Oral Tablet Chewable Take by mouth 2 times a day. Active Spironolactone 50 MG Oral Tablet (Aldactone) Take 1 Tablet by mouth in the morning. 04/14/20 23 Active Pramipexole Dihydrochloride 0.5 MG Oral Tablet (Mirapex) Take 1 Tablet by mouth in the morning. 04/20/20 23 Active traMADol HCl 50 MG Oral Tablet (Ultram) Take 1 Tablet by mouth in the morning and 1 Tablet at noon and 1 Tablet before bedtime. 04/10/20 23 Active Promethazine HCl 12.5 MG Oral Tablet (Phenergan) 1 Tablet. 05/18/20 24 Active Benzonatate 100 MG Oral Capsule (Tessalon Perles) TAKE 2 CAPSULES BY MOUTH THREE TIMES DAILY NEEDED FOR COUGH Active traZODone HCl 50 MG Oral Tablet (Desyrel) Take 1 Tablet by mouth at bedtime. 12/20/19 25 025 Active Bumetanide 1 MG Oral Tablet (Bumex) Take 1 Tablet by mouth in the morning. 11/28/19 25 Active Coenzyme Q10 100 MG Oral Capsule 1 Capsule. 10/25/19 21 025 Discontin ued(Medic ation List Clean Up) Cyanocobalamin 500 MCG Oral Tablet Take 1 Tablet by mouth. 025 Discontin ued(Medic ation List Clean Up) diphenhydrAMINE HCl (Sleep) 25 MG Oral Tablet Take 12.5 mg by mouth. 025 Discontin ued(Medic ation List Clean Up) Triamcinolone Acetonide 0.1 % External Cream (Aristocort) Apply 1 Application Dosing Unit topically to affected area as needed. 07/04/20 21 025 Discontin ued(Medic ation List Clean Up) Desonide 0.05 % External Cream Apply 1 Application Dosing Unit topically to affected area as needed. 07/04/20 21 025 Discontin ued(Medic ation List Clean Up) Escitalopram Oxalate 10 MG Oral Tablet (Lexapro) Take 1 Tablet by mouth in the morning. 10/16/19 22 025 Discontin ued(Medic ation List Clean Up) Omeprazole 20 MG Oral Capsule Delayed Release (PriLOSEC) Take 1 Capsule by mouth as needed. 09/25/20 22 025 Discontin ued(Medic ation List Clean Up) Famotidine 10 MG Oral Tablet Take 1 Tablet by mouth as needed. Discontin ued(Medic ation List Clean Up) Losartan Potassium 100 MG Oral Tablet (Cozaar) Take 1 Tablet by mouth in the morning. 03/16/20 23 Discontin ued(Medic ation List Clean Up) hydrALAZINE HCl 25 MG Oral Tablet (Apresoline) Take 1 Tablet by mouth in the morning. 04/22/20 23 025 Discontin ued(Medic ation List Clean Up) oxyBUTYnin Chloride 5 MG Oral Tablet (Ditropan) Take 1 Tablet by mouth in the morning. 03/09/20 24 Discontin ued(Medic ation List Clean Up) Ventolin HFA 108 (90 Base) MCG/ACT Inhalation Aerosol Solution INHALE 2 PUFFS BY MOUTH EVERY 6 HOURS WITH SPACER CHAMBER 06/10/20 24 Discontin ued(Medic ation List Clean Up) Neomycin-Polymyxin- Dexameth 3.5-57590-5.1 Ophthalmic Ointment (Maxitrol) Instill into the left eye 2 times a day. apply to outer corner of eye 2 times per day for 5 days. 3.5 g 6 09/12/20 24 025 Discontin ued(Medic ation List Clean Up) HYDROcodone-Acetami nophen 5-325 MG Oral Tablet TAKE 1 TABLET BY MOUTH AT 4PM AND 1 TABLET AT BEDTIME 11/09/19 25 Discontin ued(Medic ation List Clean Up) Hospital, Clinic, or Other Facility Administered Medication Ordered Dose Route Frequency Start Date End Date Status bevaCIZumab (Avastin) inj 1.25 mgIndications: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),Exudative age-related macular degeneration of right eye with active choroidal neovascularization (HCC) 1.25 mg IZ PRN 01/19/2024 01/18/2025 Ended ROPivacaine (Naropin) inj 1.5 mgIndications: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),Exudative age-related macular degeneration of right eye with active choroidal neovascularization (HCC) 1.5 mg IJ PRN 01/19/2024 01/18/2025 Ended documented as of this encounter (statuses as of 02/07/2025) Active Problems Problem Noted Date Diagnosed Date Encounter for surveillance of abnormal nevi 06/12 documented as of this encounter (statuses as of 02/07/2025) Immunizations Name Administration Dates Next Due Seasonal Influenza, Quadrivalent Hd (Fluzone Hd) 07/24/2023 documented as of this encounter Social History Tobacco Use Types Packs/Day Years Used Date Smoking Tobacco: Never Smokeless Tobacco: Never Alcohol Use Standard Drinks/Week Comments Yes 1 (1 standard drink = 0.6 oz pur e alcohol) occasionally Comments Unknown Sex and Gender Information Value Date Recorded Sex Assigned at Not on file Legal Sex Female 5:56 AM EST Gender Identity Not on file Sexual Orientation Not on file documented as of this encounter Progress Notes * Mike Hollis DO - 01/17/2025 1:15 PM EDT [facility] [place] Nursing Notes: Kailee Krishnan RN 01/17/25 1314 Signed Amina Casillas is a 89 year old year old female who presents for amd. Last Office Visit: Visit date not found (in office), Visit date not found (telemedicine) Patient currently states "Not as sharp and think I see less" Are you diabetic? No Do you drive? no OCT image(s) of both eyes acquired and filed/scanned into chart. Base Eye Exam Visual Acuity (Snellen - Linear) Right Left Dist cc 20/40 +1 20/350 -2 Dist ph cc 20/30 -1 20/350 -1 Correction: Glasses Tonometry (Tonopen, 1:13 PM) Right Left Pressure 16 16 Pupils Pupils APD Right PERRL None Left PERRL None Visual Arnold (Counting fingers) Right Left Full Full Extraocular Movement Right Left Full, Ortho Full, Ortho Neuro/Psych Oriented x3: Yes Mood/Affect: Normal Dilation Both eyes: 0.5% Proparacaine @ 1:12 PM Dilation #2 Both eyes: 1.0% Mydriacyl, 2.5% Phenylephrine @ 1:13 PM Dilation Comments Patient cautioned that effects of [...] optic nerve: 0.3, no edema/pallor/NVD macula: PED rip, GA vessels: wnl periphery: reticular changes, no RT/RD OCT Interpretation: OD: drusen, flattened PED, resolved srfluid--STABLE, prior STABLE, prior STABLE, prior improved 39um, prior worse, prior STABLE, prior STABLE, prior improved 94um prior WORSE/NEW 78um OS: srlfuid, flattened PED rip, srmounding--STABLE, prior STABLE, prior STABLE, prior STABLE, priorSTABLE, prior improved 72um A/P: 1. Age-Related Macular Degeneration OD: wet -Avastin 11/15/24, 09/12/24, 06/28/24, 05/10/24, 03/15/24, 10/21/23, 09/08/23, 07/31/23, 06/26/2023 -9 weeks; worse at 13 weeks (missed appoint); good at 6 weeks OS: wet PED rip -Avastin 07/07/23, 07/07/23, 04/23/23, 02/27/23, 01/13/23, 12/09/22, 11/04/22 -VA limited, hold injection -An examination for this condition was completed which is unrelated to the procedure that was performed today. -monitor 2. Posterior Vitreous Detachment OU -no RT/RD -advised to return to clinic if she should experience worsening or new floaters, flashes of light, a shadow in the periphery, or decrease in vision. 3. Pseudophakia OU -stable, Dr Roberts 4. Angular blepharitis OS -maxitrol bid x 5 days and then prn f/u 8-10 week for OCT OU Mike Hollis DO CC: MINGO CC: PCP: Chalo Doran DO TIMEOUT PROCEDURE: [...] documented in this encounter Nursing Notes * Pratibha Zambrano TECH - 01/17/2025 1:36 PM EDT Amina Casillas to receive 11 Avastin 2.75 mg Injection of the Right eye. Correct eye confirmed with patient and marked by Mike Hollis DO Avastin 2.75 mg lot # [id number] Exp. Date: 02/07/2025 * Kailee Krishnan RN - 01/17/2025 1:06 PM EDT Amina Casillas is a 89 year old year old female who presents for amd. Last Office Visit: Visit date not found (in office), Visit date not found (telemedicine) Patient currently states "Not as sharp and think I see less" Are you diabetic? No Do you drive? no OCT image(s) of both eyes acquired and filed/scanned into chart. documented in this encounter Plan of Treatment Upcoming Encounters Date Type Department Care Team (Late st Contact Info) Description 03/28/2025 2:00 PM EDT Office Visit Ophthalmology, [facility] [address] [place] [phone] Mike Hollis DO [address] [place] [address] Harlan Nurse Dewey Whitmore [address] [place] [address] Estephania Claroser Haim [address] [place] [address] Scheduled Orders Name Type Priority Associated Diagnoses Orde r Schedule RETINA SCAN DIAGNOSTIC IMAGE, POSTERIOR Procedures Routine Exudative age-related macular degeneration of right eye with active choroidal neovascularization (HCC) Ordered: 01/17/2025 Health Maintenance Due Date Last Done Comments DXA Scan 1935 Depression Screening 1947 DTap/Tdap Vaccines (1 - Tdap) 1954 COVID-19 Vaccine ( season) 2024 07/19/2022, 07/19/2022, 02/07/2022, Additional history exists Pneumococcal Vaccine: 50+ Years Completed 10/26/2017, 07/18/2015 Zoster Vaccines Completed 01/17/2019, 09/12, 10/07/2007 Influenza Vaccine (FLU shot) Completed , 07/24/2023, 07/21/2023, Additional history exists HPV (Gardasil) Vaccine Aged Out No lo nger eligible based on patient's age to complete this topic Hepatitis B Vaccine Aged Out No longe r eligible based on patient's age to complete this topic MENINGOCOCCAL (MENACTRA/MENVEO) Aged Out No longer eligible based on patient's age to complete this topic Meningitis B Vaccine (Bexsero/Trumemba) Aged Out No longer eligible based on patient's age to complete this topic documented as of this encounter Medical Devices Not on filedocumented as of this encounter Visit Diagnoses Diagnosis Exudative age-related macular degeneration of right eye with active choroidal neovascularization (HCC)- Primary 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) documented in this encounter Administered Medications Inactive Administered Medications - up to 3 most recent administrations Medication Order MAR Action Action Date Dose Rate Site bevaCIZumab (Avastin) inj 1.25 mg 1.25 mg, Intravitreal, PRN Other, Starting on Thu01/19/24 at 0926, Until Thu01/18/25 at 0925, For 365 daysIndications: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),Exudative age-related macular degeneration of right eye with active choroidal neovascularization (HCC) Given 01/17/2025 1:38 PM EDT 1.25 mg Eye Right Given 11/15/2024 12:14 PM EST 1.25 mg E ye Right Given 09/12/2024 3:40 PM EST 1.25 mg Ey e Right ROPivacaine (Naropin) inj 1.5 mg 1.5 mg, Injection, PRN Other, Starting on Thu01/19/24 at 0926, Until Thu01/18/25 at 0925, For 365 daysIndications: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),Exudative age-related macular degeneration of right eye with active choroidal neovascularization (HCC) Given 01/17/2025 1:37 PM EDT 1.5 mg Eye Right Given 11/15/2024 12:13 PM EST 1.5 mg E ye Right Given 09/12/2024 3:40 PM EST 1.5 mg Ey e Right documented in this encounter Care Teams Clock And Watch Hands Dipper Relationship Specialty Start Date End Date Makayla Adan CRNP [address] [facility] [place] [address] PCP - General Nurse Practitioner 06/26/23 documented as of this encounter
[2025-02-26 22:00] LABS: Basophils # (auto) 0.03 K/uL (0.00-0.20); Basophils % (auto) 0.4 %; Eosinophils % (auto) 2.8 %; Hematocrit (blood only) 35.3 % (37.0-47.0); Hemoglobin 11.8 g/dl (12.0-16.0); Immature Granulocytes # (auto) 0.02 K/uL (0.01-0.20); Immature Granulocytes % (auto) 0.3 %; Lymphocytes # (auto) 0.87 K/uL (1.20-3.40); Lymphocytes % (auto) 12.1 %; Mean Corpuscular Hemoglobin 29.9 pg (25.0-34.0); Mean Corpuscular Hgb Conc 33.4 g/dL (32.0-36.0); Mean Corpuscular Volume 89.4 fL (80.0-100.0); Mean Platelet Volume 9.1 fL (9.4-12.4); Monocytes # (auto) 0.63 K/uL (0.11-0.59); Monocytes % (auto) 8.8 %; Neutrophils # (auto) 5.42 K/uL (1.40-6.50); Neutrophils % (auto) 75.6 %; Platelet Count 240 K/uL (130-400); RDW Coefficient of Variation 14.5 % (11.5-14.5); RDW Standard Deviation 47.1 fL (36.4-46.3); Red Blood Count 3.95 M/uL (4.20-5.40); White Blood Count 7.17 K/ul (4.8-10.8)
[2025-02-26 22:20] LABS: Albumin Globulin Ratio 1.6 (0.9-2); Albumin Level 3.9 gm/dl (3.4-5.0); BUN Creatinine Ratio 36.4 (10-20); Bilirubin,Total 0.5 mg/dl (0.2-1.0); Calcium 9.3 mg/dl (8.6-10.3); Creatinine Clr Calc Pharmacy 30.9 ml/min; Globulin 2.4 gm/dl (2.5-4.0); Potassium 4.1 mmol/L (3.5-5.1); Total Protein 6.3 gm/dl (6.0-8.3)
[2025-02-26] MEDS: KETOROLAC TROMETHAMINE 15 MG/ML VIAL IV ONE (22:26)
[2025-02-26] MEDS: cefTRIAXone SODIUM 2,000 MG/50 ML BAG IV SCH (22:27)
--- NOTE | 2025-02-26 23:42 | Ultrasound Report ---
Examination: Doppler venous ultrasound of the lower extremity Comparison: 02/01/2025 Technique: Grayscale evaluation with compression, spectral flow, and color Doppler assessment of the deep venous system of the leg, from the groin to the knee, as well as the lower leg Findings: The external iliac, common femoral, femoral, popliteal, peroneal and anterior and posterior tibial veins demonstrate normal compressibility and blood flow. Subcutaneous edema is noted in the popliteal region and calf. Impression: No evidence for DVT of the left lower extremity Electronically signed by Mike Hernandez 02-26-2025 11:42 PM
--- NOTE | 2025-02-26 23:44 | History & Physical Report ---
Date of Service February 26, 2025 Assessment & Plan (1) Chronic venous insufficiency: (2) Restless legs syndrome: (3) Idiopathic polyneuropathy: (4) Left leg cellulitis: Plan Pt is an 89 yo female with a past med hx of lower leg cellulitis 4x since 2002, chronic venous insufficiency, restless leg syndrome, and depression who presents to the hospital on 02/26 for L leg cellulitis, admitted for failure on outpatient oral antibiotics (doxycycline started ). #Chronic venous stasis with superimposed L leg cellulitis - refractory to outpatient antibiotics (doxycycline 100 mg BID since ) - given dose of CTX in the ED, will continue this - tylenol scheduled for pain, cautious use of NSAIDs given hx repeated AKIs, continue home tramadol for pain - bumex 1 mg daily (usually every other day) - fluid restrict per outpatient nephro's reccs; 1500 mL fluids, low salt diet - CXR to evaluate for further fluid overload #Idiopathic polyneuropathy #Restless leg syndrome - continue home propranolol - continue home gabapentin - am HA1c DVT ppx: heparin History of Present Illness Chief Complaint: L leg cellulitis Primary Care Provider: Keny Quiroga Pt is an 89 yo female with a past med hx of lower leg cellulitis 4x since 2002, chronic venous insufficiency, restless leg syndrome, and depression who presents to the hospital on 02/26 for L leg cellulitis, admitted for failure on outpatient oral antibiotics (doxycycline started ). Pt states she noticed on that her L leg was quite swollen, red and painful. She states that she conveniently had a derm appointment then since she had been noticing that both her legs were dry/crusty appearing and had initially meant to see derm for it 3 weeks ago, but her appointment kept getting pushed back. She states because of how her leg looked, they gave her a script of doxycycline, which she took that evening and BID since then including today. She denies issues with her heart that she knows about. No fevers, chills, nausea, vomiting. NO chest pain or SOB. She states that it has not improved at all since so she thought to come in. is present at bedside. He states she has had multiple incidences of cellulitis of her legs, originally dating back to 2002 according to him with a handful of incidences since then. Other than pain in her legs, she is feeling well. No further questions or concerns. Allergies Allergy/AdvReac Type Severity Reaction Status Date / Time No Known Allergies Allergy Verified 02/22/25 09:58 Home Medications Medication Instructions Recorded Confirmed Type cyanocobalamin (vitamin B-12) 500 500 mcg PO QAM 05/01/20 02/26/25 History mcg tablet cholecalciferol (vitamin D3) 50 2,000 unit PO QAM 02/11/21 02/26/25 History mcg (2,000 unit) capsule ondansetron 4 mg disintegrating 4 mg PO Q6H PRN nausea and 09/10/22 02/26/25 Rx tablet vomiting #14 tabs psyllium husk 0.52 gram capsule 1.04 g PO QAM 08/18/23 02/26/25 History aspirin 81 mg tablet,delayed 81 mg PO QAM 08/15/24 02/26/25 History release escitalopram oxalate 10 mg tablet 10 mg PO QAM 09/21/24 02/26/25 History promethazine 12.5 mg tablet 12.5 mg PO DAILY PRN Nausea 11/23/24 02/26/25 History spironolactone 50 mg tablet 50 mg PO QAM 11/23/24 02/26/25 History zinc gluconate 50 mg tablet 50 mg PO QAM 11/23/24 02/26/25 History pramipexole 0.5 mg tablet 0.5 mg PO UD 11/24/24 02/26/25 History trazodone 50 mg tablet 50 mg PO QPM 01/04/25 02/26/25 History vitamins A,C,G-mxrp-icibwc 4,296 1 cap PO QAM 01/06/25 02/26/25 History mcg-226 mg-90 mg capsule (PreserVision AREDS) bumetanide 1 mg tablet 1 mg PO Q OTHER DAY 02/07/25 02/26/25 History Lactobacillus 1 cap PO DAILY 02/22/25 02/26/25 History acidophilus-Bifidobac.animalis 2 billion cell capsule (One-A-Day Trubiotics) benzonatate 100 mg capsule 100 mg PO .COMPLEX PRN Cough 02/22/25 02/26/25 History gabapentin 100 mg capsule 200 mg (2 x 100 mg) PO HS #60 caps 02/22/25 02/26/25 Rx propranolol 10 mg tablet 10 mg PO BID #60 tabs 02/22/25 02/26/25 Rx tramadol 50 mg tablet 50 mg PO TID PRN Pain 02/22/25 02/26/25 History Past Med/Surg History Problem List (Updated 02/27/25 @ 02:02 by Glendy Brennan MD) Left leg cellulitis (Acute) Action tremor H/O umbilical hernia repair Venous insufficiency, peripheral Urinary incontinence, mixed Umbilical hernia Tachycardia Spinal stenosis Sciatica Motion sickness Macular degeneration, wet Hypothyroid Hearing aid worn Fatigue CKD stage 3b, GFR 30-44 ml/min Arthritis Bilateral edema of lower extremity (Acute) Myofascial pain Lumbar radiculopathy Leg edema (Acute) Tremor Osteoarthritis of left shoulder Encounter for pre-operative examination Chronic venous insufficiency (Acute) Rotator cuff arthropathy of left shoulder Pes anserine bursitis Edema (Acute) to bilateral LE edema L>R following with vascular surgery- scheduled for upcoming Venaseal before TSA Hypertension First degree AV block Chronic 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 Sharp Mildly dilated ascending aorta at 3.9cm per 11/2023 ECHO Eczema of lower extremity Exertional dyspnea (Acute) pt denies any SOB with exertion at this time Frequency of urination and polyuria Chronic Renal angiomyolipoma (Acute) Idiopathic polyneuropathy (Acute) Restless legs syndrome (Acute) Lumbar spinal stenosis (Chronic) Lumbar spondylosis (Chronic) Lumbar radicular pain (Chronic) Sacroiliitis (Chronic) Medical History History of urinary incontinence History of tremor Hx of spinal stenosis Hx of mitral valve insufficiency Lumbar radiculopathy Hearing loss Hx of urinary frequency Hx of fluid overload History of first degree AV block Dilated aortic root Cellulitis of both lower extremities History of hypothyroidism Hx of sciatica Hx of motion sickness Macular degeneration, wet Idiopathic polyneuropathy History of hypertension Exertional dyspnea History of COVID-19 History of colon cancer (2013) CKD stage 3b, GFR 30-44 ml/min Chronic venous insufficiency Restless legs syndrome (RLS) Chronic knee pain 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 Bilateral edema of lower extremity Surgical History H/O umbilical hernia repair (01/13/25) History of bowel resection (2013) Status post reverse total replacement of left shoulder (~01/2024) History of thumb surgery History of cholecystectomy History of cardiac cath (2013) History of tubal ligation (1970) History of knee replacement History of colonoscopy History of cataract surgery (2009) Family History Father CHF (congestive heart failure) Cardiac arrest Hypertension Mother Cardiac arrest Cardiac disorder Hypertension Stroke Sister Hypertension Stroke Aunt Stomach cancer Other No family history of adverse response to anesthesia Denies family history of Ovarian cancer Prostate cancer Myocardial infarction Breast cancer Bleeding disorder Colorectal cancer Social History Smoking Status: Never smoker Second Hand Exposure: Yes (As a child.); Do You Dip or Chew Tobacco: No; Tobacco Cessation Education Requested by Patient: No Hx Alcohol Use: Yes Alcohol type: wine Alcohol Intake Frequency: 2-4 x/Month Hx Substance Use: No Preferred Language: Belarusian Communication Ability: Effective Visual Impairment: No Limitations Hearing Ability: Use of Hearing Aid Reverse Unit Operator Required: No Beliefs That Will Affect Care: None marital status: Current Living Situation: Spouse Current Living Situation Comment: living with current occupational status: retired How many Children do You have: 4 Other Information That Helps Us Care for You: No Feels Safe at Home: Yes Safety Concerns: Feels Safe At This Time Childhood Exposure to Second-Hand Smoke: Yes Diet: regular caffeine: Yes (3 cups daily) during the past year weight has: decreased > 10 lbs Dental Care, Regularly: Yes Physical Activity Frequency: Does not Exercise Seatbelt Use: always Sunscreen Use: No Do you think of yourself as: straight/heterosexual Gender Identity: Female Assistive Devices: Glasses, Hearing Aid - Bilateral, Hospital Bed and Walker Review of Systems Review of Systems: Per HPI. Physical Exam Physical Exam: General: Alert and oriented, no acute distress, pleasant HEENT: Normocephalic, moist oral mucosa, Cardio: Regular rate and rhythm, Resp: Lungs clear to auscultation b/l, no wheezes or rhonchi, GI: Soft and nontender, nondistended, bowel sounds active Skin: Warm, pink, dry, Extremities: R leg with 1+ edema and slight darkening of the skin, L leg with 3+ edema up to the level of the knee with bright erythema, and increased warmth, no open sores noted, level of erythema marked with surgical marker at time of admission Results & Data Results & Data Vital Signs (Past 12 Hours) Vital Signs Temp Pulse Resp BP Pulse Ox O2 Del Method 02/26/25 23:00 72 18 142/87 H 98 Room Air 02/26/25 22:30 71 22 166/102 H 97 02/26/25 21:54 75 24 146/88 H 96 02/26/25 21:30 73 19 143/86 H 96 02/26/25 21:30 73 02/26/25 20:47 36.5 C 77 16 157/81 H 96 Room Air Supervising Physician Co-Signing Physician Notes I personally saw and examined the patient. I independently reviewed the labs, imaging, problem list, medication list, past medical history and family history. I verified all mcmahan points and agree with Sanaz Jones PA-C with the following exceptions and/or additions: 89 year old female presents to the ER with left leg erythema and swelling. Recurrent episodes of cellulitis superimposed on venous stasis O/E HS RRR, no murmurs, Chest CTAB, Abdo SNT, Left leg 3+ pitting edema, A/P Cellulitis - IV ceftriaxone, increase bumex back to 1mg daily Resident Activity Tracking Resident Involvement: Resident Care Provided Care Provided: Adult Hospital Medicine
--- NOTE | 2025-02-27 00:24 | Emergency Department Note ---
Impression & Plan Left leg cellulitis ED Provider Note NAME: VLADIMIR AWAD AGE: 89 SEX: F : 1935 ARRIVES VIA: Walk-In INFORMANT: Patient, ED PROVIDER(S): Glendy Brennan MD CHIEF COMPLAINT: Leg swelling, redness HPI: This is a 89-year-old female presents for leg//redness. Patient was seen by the card lacer jacquard about 4 days ago and diagnosed with cellulitis. She was given doxycycline for this. She notes that she has had cellulitis multiple times. She notes that her left leg is now significantly swollen and red. She notes extremely painful to the touch. She can walk on this but her thinks that it is required she needs admission like previous days. She reports no chest pain, shortness of breath reports no nausea or vomiting. ROS: See above HPI for pertinent positives & negatives. A total of 10 systems reviewed and were otherwise negative. PAST MEDICAL HISTORY: See Below PAST SURGICAL HISTORY: See Below FAMILY HISTORY: See Below SOCIAL HISTORY: See Below HOME MEDICATIONS: See Below ALLERGIES: See Below VITALS: See Below PHYSICAL EXAMINATION: General: resting comfortably in no acute distress Head: Normocephalic and atraumatic Eyes: Normal inspection, extraocular muscles intact Ear, nose, throat: Normal external exam Neck: Normal range of motion Respiratory: lungs clear to auscultation bilaterally Cardiovascular: Regular rate/rhythm, no murmur GI: soft, nontender, no guarding or rebound Extremities: Left greater than right swelling, significant left-sided erythema, circumferential, warmth, exquisitely tender 2+ pulses Neuro: The patient awake and alert, appropriately conversive, no focal deficits, symmetric faces Skin: Warm, dry, and intact MEDICAL DECISION MAKING: This is an 89-year-old female presenting for leg pain/redness. - Patient has no obvious left-sided cellulitis, it is exquisitely tender, red, warm. DVT is considered much less likely. Will do ultrasound to elucidate - Will give ceftriaxone for suspected infection and failed outpatient therapy - Will admit as patient's failed outpatient therapy with significant cellulitis - Discussed with the hospitalist service, under Dr. Mckeon for admission Differential diagnosis: Cellulitis, DVT, sepsis, arterial occlusion Independent History obtained from: Diagnostics interpreted by me: ECG: None Cardiac Monitoring: An order was placed for continuous cardiac monitoring. The monitor shows a rate of 72 with sinus rhythm. Past Med/Surg History Problem List (Updated 02/27/25 @ 02:02 by Glendy Brennan MD) Left leg cellulitis (Acute) Action tremor H/O umbilical hernia repair Venous insufficiency, peripheral Urinary incontinence, mixed Umbilical hernia Tachycardia Spinal stenosis Sciatica Motion sickness Macular degeneration, wet Hypothyroid Hearing aid worn Fatigue CKD stage 3b, GFR 30-44 ml/min Arthritis Bilateral edema of lower extremity (Acute) Myofascial pain Lumbar radiculopathy Leg edema (Acute) Tremor Osteoarthritis of left shoulder Encounter for pre-operative examination Chronic venous insufficiency (Acute) Rotator cuff arthropathy of left shoulder Pes anserine bursitis Edema (Acute) to bilateral LE edema L>R following with vascular surgery- scheduled for upcoming Venaseal before TSA Hypertension First degree AV block Chronic 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 Sharp Mildly dilated ascending aorta at 3.9cm per 11/2023 ECHO Eczema of lower extremity Exertional dyspnea (Acute) pt denies any SOB with exertion at this time Frequency of urination and polyuria Chronic Renal angiomyolipoma (Acute) Idiopathic polyneuropathy (Acute) Restless legs syndrome (Acute) Lumbar spinal stenosis (Chronic) Lumbar spondylosis (Chronic) Lumbar radicular pain (Chronic) Sacroiliitis (Chronic) Medical History History of urinary incontinence History of tremor Hx of spinal stenosis Hx of mitral valve insufficiency Lumbar radiculopathy Hearing loss Hx of urinary frequency Hx of fluid overload History of first degree AV block Dilated aortic root Cellulitis of both lower extremities History of hypothyroidism Hx of sciatica Hx of motion sickness Macular degeneration, wet Idiopathic polyneuropathy History of hypertension Exertional dyspnea History of COVID-19 History of colon cancer (2013) CKD stage 3b, GFR 30-44 ml/min Chronic venous insufficiency Restless legs syndrome (RLS) Chronic knee pain 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 Bilateral edema of lower extremity Surgical History H/O umbilical hernia repair (01/13/25) History of bowel resection (2013) Status post reverse total replacement of left shoulder (~01/2024) History of thumb surgery History of cholecystectomy History of cardiac cath (2013) History of tubal ligation (1970) History of knee replacement History of colonoscopy History of cataract surgery (2009) Family History Father CHF (congestive heart failure) Cardiac arrest Hypertension Mother Cardiac arrest Cardiac disorder Hypertension Stroke Sister Hypertension Stroke Aunt Stomach cancer Other No family history of adverse response to anesthesia Denies family history of Ovarian cancer Prostate cancer Myocardial infarction Breast cancer Bleeding disorder Colorectal cancer Social History Smoking Status: Never smoker Second Hand Exposure: Yes (hx as child); Do You Dip or Chew Tobacco: No; Hx Alcohol Use: Yes Alcohol type: wine Alcohol Intake Frequency: 2-4 x/Month Hx Substance Use: No Preferred Language: Nicaraguan Communication Ability: Effective Visual Impairment: No Limitations Hearing Ability: Use of Hearing Aid Palm Gatherer Required: No Beliefs That Will Affect Care: None marital status: Current Living Situation: Spouse Current Living Situation Comment: living with current occupational status: retired How many Children do You have: 4 Feels Safe at Home: Yes Childhood Exposure to Second-Hand Smoke: Yes Diet: regular caffeine: Yes (3 cups daily) during the past year weight has: decreased > 10 lbs Dental Care, Regularly: Yes Physical Activity Frequency: Does not Exercise Seatbelt Use: always Sunscreen Use: No Do you think of yourself as: straight/heterosexual Gender Identity: Female Assistive Devices: Glasses, Hearing Aid - Bilateral and Walker Allergies Allergies Allergy/AdvReac Type Severity Reaction Status Date / Time No Known Allergies Allergy Verified 02/22/25 09:58 Home Meds Home Medications Medication Instructions Recorded Confirmed cyanocobalamin (vitamin B-12) 500 500 mcg PO QAM 05/01/20 02/26/25 mcg tablet cholecalciferol (vitamin D3) 50 2,000 unit PO QAM 02/11/21 02/26/25 mcg (2,000 unit) capsule psyllium husk 0.52 gram capsule 1.04 g PO QAM 08/18/23 02/26/25 aspirin 81 mg tablet,delayed 81 mg PO QAM 08/15/24 02/26/25 release escitalopram oxalate 10 mg tablet 10 mg PO QAM 09/21/24 02/26/25 promethazine 12.5 mg tablet 12.5 mg PO DAILY PRN Nausea 11/23/24 02/26/25 spironolactone 50 mg tablet 50 mg PO QAM 11/23/24 02/26/25 zinc gluconate 50 mg tablet 50 mg PO QAM 11/23/24 02/26/25 pramipexole 0.5 mg tablet 0.5 mg PO UD 11/24/24 02/26/25 trazodone 50 mg tablet 50 mg PO QPM 01/04/25 02/26/25 vitamins A,C,G-tlxz-readri 4,296 1 cap PO QAM 01/06/25 02/26/25 mcg-226 mg-90 mg capsule (PreserVision AREDS) bumetanide 1 mg tablet 1 mg PO Q OTHER DAY 02/07/25 02/26/25 Lactobacillus 1 cap PO DAILY 02/22/25 02/26/25 acidophilus-Bifidobac.animalis 2 billion cell capsule (One-A-Day Trubiotics) benzonatate 100 mg capsule 100 mg PO .COMPLEX PRN Cough 02/22/25 02/26/25 tramadol 50 mg tablet 50 mg PO TID PRN Pain 02/22/25 02/26/25 Previous Rx's Medication Instructions Recorded ondansetron 4 mg disintegrating 4 mg PO Q6H PRN nausea and 09/10/22 tablet vomiting #14 tabs gabapentin 100 mg capsule 200 mg (2 x 100 mg) PO HS #60 caps 02/22/25 propranolol 10 mg tablet 10 mg PO BID #60 tabs 02/22/25 Results & Data (ED) Vital Signs Vital Signs - 24 hr 02/26/25 20:47 02/26/25 21:30 02/26/25 21:30 Temperature 36.5 C Temperature Source Temporal Artery Scan Pulse Rate 77 73 73 Pulse Rate from SpO2 Sensor 73 Pulse Rhythm Regular Pulse Strength Normal Respiratory Rate 16 19 Respiratory Effort / Characteristics Non-Labored Spontaneous Respiratory Depth Normal Respiratory Pattern Regular Blood Pressure 157/81 H 143/86 H Blood Pressure Mean 106 105 Pulse Oximetry 96 96 Oxygen Delivery Method Room Air Sepsis Recent Fever Within 48 Hours No Sepsis New/Unexplained Change in Mental Status No Sepsis Action Taken by Nursing No Action Required 02/26/25 21:54 02/26/25 22:30 02/26/25 23:00 Temperature Temperature Source Pulse Rate 75 71 72 Pulse Rate from SpO2 Sensor 75 71 74 Pulse Rhythm Pulse Strength Respiratory Rate 24 22 18 Respiratory Effort / Characteristics Respiratory Depth Respiratory Pattern Blood Pressure 146/88 H 166/102 H 142/87 H Blood Pressure Mean 107 123 98 Pulse Oximetry 96 97 98 Oxygen Delivery Method Room Air Sepsis Recent Fever Within 48 Hours Sepsis New/Unexplained Change in Mental Status Sepsis Action Taken by Nursing 02/27/25 00:00 02/27/25 01:27 Temperature Temperature Source Pulse Rate 74 66 Pulse Rate from SpO2 Sensor 72 Pulse Rhythm Pulse Strength Respiratory Rate 22 17 Respiratory Effort / Characteristics Respiratory Depth Respiratory Pattern Blood Pressure 148/89 H 139/81 Blood Pressure Mean 108 100 Pulse Oximetry 94 95 Oxygen Delivery Method Room Air Room Air Sepsis Recent Fever Within 48 Hours Sepsis New/Unexplained Change in Mental Status Sepsis Action Taken by Nursing Laboratory Data 02/26/25 21:09 02/26/25 21:09 Lab Results 02/26/25 Range/Units 21:09 WBC 7.17 (4.8-10.8) K/ul RBC 3.95 L (4.20-5.40) M/uL Hgb 11.8 L (12.0-16.0) g/dl Hct 35.3 L (37.0-47.0) % MCV 89.4 (80.0-100.0) fL MCH 29.9 (25.0-34.0) pg MCHC 33.4 (32.0-36.0) g/dL RDW Std Deviation 47.1 H (36.4-46.3) fL RDW Coeff of Xavier 14.5 (11.5-14.5) % Plt Count 240 (130-400) K/uL MPV 9.1 L (9.4-12.4) fL Immature Gran % (Auto) 0.3 % Neut % (Auto) 75.6 % Lymph % (Auto) 12.1 % [place] % (Auto) 8.8 % Eos % (Auto) 2.8 % Baso % (Auto) 0.4 % Neut # (Auto) 5.42 (1.40-6.50) K/uL Lymph # (Auto) 0.87 L (1.20-3.40) K/uL [place] # (Auto) 0.63 H (0.11-0.59) K/uL Eos # (Auto) 0.20 (0.00-0.50) K/uL Baso # (Auto) 0.03 (0.00-0.20) K/uL Immature Gran # (Auto) 0.02 (0.01-0.20) K/uL Sodium 135 L (136-145) mmol/L Potassium 4.1 (3.5-5.1) mmol/L Chloride 102 (98-107) mmol/L Carbon Dioxide 26 (21-32) mmol/L Anion Gap 7 (3-11) BUN 43 H (6-23) mg/dl Creatinine 1.18 (0.6-1.2) mg/dl Est Cr Clr Drug Dosing 30.9 ml/min eGFR 44.15 BUN/Creatinine Ratio 36.4 H (10-20) Glucose 110 H (70-99(Fasting)) mg/dl Calcium 9.3 (8.6-10.3) mg/dl Total Bilirubin 0.5 (0.2-1.0) mg/dl AST 17 (13-39) U/L ALT 15 (7-52) U/L Alkaline Phosphatase 67 (34-104) U/L B-Natriuretic Peptide 175 H (0-100) pg/ml Total Protein 6.3 (6.0-8.3) gm/dl Albumin 3.9 (3.4-5.0) gm/dl Globulin 2.4 L (2.5-4.0) gm/dl Albumin/Globulin Ratio 1.6 (0.9-2) Administered Medications Ceftriaxone Sodium (Rocephin) 2,000 mg in 50 mls @ 100 mls/hr IV Q24H JAKUB Stop: 02/28/25 22:14 Last Infusion: 02/26/25 23:03 Dose: Infused Documented By: Admin: 02/26/25 22:27 Dose: 100 mls/hr Documented By: DELANEY Discontinued Medications Acetaminophen (Ofirmev) 1,000 mg in 100 mls @ 400 mls/hr IV NOW STA Stop: 02/27/25 00:37 Last Infusion: 02/27/25 00:43 Dose: Infused Documented By: Admin: 02/27/25 00:28 Dose: 400 mls/hr Documented By: DELMI Ketorolac Tromethamine (Ketorolac Tromethamine 15 Mg/Ml Vial) 15 mg IV NOW ONE Stop: 02/26/25 22:21 Last Admin: 02/26/25 22:26 Dose: 15 mg Documented By: BLD Imaging Data Radiologist's Impression: Venous Doppler Study 02/26/25 22:01 Examination: Doppler venous ultrasound of the lower extremity Comparison: 02/01/2025 Technique: Grayscale evaluation with compression, spectral flow, and color Doppler assessment of the deep venous system of the leg, from the groin to the knee, as well as the lower leg Findings: The external iliac, common femoral, femoral, popliteal, peroneal and anterior and posterior tibial veins demonstrate normal compressibility and blood flow. Subcutaneous edema is noted in the popliteal region and calf. Impression: No evidence for DVT of the left lower extremity Electronically signed by Mike Hernandez 02-26-2025 11:42 PM Discharge Plan Visit Data Chief Complaint: Swelling/Edema to Extremity Stated Complaint: BOTH LEGS SWOLLEN AND RED ED Provider: Glendy Brennan Discharge Problem: Left leg cellulitis Patient Disposition: Admitted As Inpatient Condition: Fair Discharge Instructions Interventions: ED Discharge Assessment Last Done: 02/27/25 01:57 Forms Stand Alone Forms: [facility] [email or web address] Prescriptions Prescriptions: No Action aspirin 81 mg tablet,delayed release (DR/EC) 81 mg PO QAM cholecalciferol (vitamin D3) 50 mcg (2,000 unit) capsule 2,000 unit PO QAM cyanocobalamin (vitamin B-12) 500 mcg tablet 500 mcg PO QAM zinc gluconate 50 mg tablet 50 mg PO QAM benzonatate 100 mg capsule 100 mg PO .COMPLEX PRN (Reason: Cough) Rx Instructions: 100 mg orally 1 on even days and half tab on odd days PRN; tramadol 50 mg tablet 50 mg PO TID PRN (Reason: Pain) One-A-Day Trubiotics 2 billion cell capsule 1 cap PO DAILY propranolol 10 mg tablet 10 mg PO BID Qty: 60 2RF gabapentin 100 mg capsule 200 mg PO HS Qty: 60 2RF escitalopram oxalate 10 mg tablet 10 mg PO QAM promethazine 12.5 mg tablet 12.5 mg PO DAILY PRN (Reason: Nausea) spironolactone 50 mg tablet 50 mg PO QAM bumetanide 1 mg tablet 1 mg PO Q OTHER DAY trazodone 50 mg tablet 50 mg PO QPM ondansetron 4 mg tablet,disintegrating 4 mg PO Q6H PRN (Reason: nausea and vomiting) Qty: 14 0RF psyllium husk 0.52 gram Capsule 1.04 g PO QAM pramipexole 0.5 mg tablet 0.5 mg PO UD Rx Instructions: 0.5 mg orally; take 3 tablets at 2pm and take 2 tablets at 6pm PreserVision AREDS 4,296 mcg-226 mg-90 mg Capsule 1 cap PO QAM Referrals Referrals: Keny Quiroga [Primary Care Provider] -
[2025-02-27] MEDS: ACETAMINOPHEN 1,000 MG/100 ML VIAL IV STA (00:28)
[2025-02-27] MEDS ORDERED: ONDANSETRON 4 MG OD TAB PO PRN (02:25)
[2025-02-27] MEDS ORDERED: ACETAMINOPHEN 325 MG TAB PO PRN (02:25)
[2025-02-27] MEDS: traMADol HCL 50 MG TABLET PO PRN (03:09)
[2025-02-27] MEDS: PROMETHAZINE HCL 25 MG TAB PO PRN (03:10)
--- NOTE | 2025-02-27 03:12 | XRay Report ---
EXAM: XR chest 2V PA/lateral CLINICAL HISTORY: edema TECHNIQUE: Radiograph of chest was acquired. COMPARISON: CR,12/26/2024 16:05:54 HHA FINDINGS: Prominent bilateral bronchovascular shadows. The lungs are clear and well-expanded with no pulmonary infiltrate or pleural effusion. The cardiomediastinal silhouette is within normal limits. No acute osseous abnormality. 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 IMPRESSION: 1. Prominent bilateral bronchovascular shadows. 2. No interval changes. Electronically signed by Deniz Howell 02-27-2025 03:12 AM
--- NOTE | 2025-02-27 05:26 | Billing Data ---
Date of Service February 27, 2025 Coding Level of Care Code 37976 INT INP/OBS CARE
[2025-02-27] MEDS: MoRPHine SULFATE 2 MG/ML CARP IV STA (05:27)
[2025-02-27] MEDS: PRAMIPEXOLE DIHYDROCHLO 0.5 MG TAB PO ONE (05:28)
[2025-02-27 07:47] LABS: Basophils # (auto) 0.03 K/uL (0.00-0.20); Basophils % (auto) 0.6 %; Eosinophils # (auto) 0.18 K/uL (0.00-0.50); Eosinophils % (auto) 3.5 %; Hematocrit (blood only) 35.4 % (37.0-47.0); Hemoglobin 11.8 g/dl (12.0-16.0); Immature Granulocytes # (auto) 0.02 K/uL (0.01-0.20); Immature Granulocytes % (auto) 0.4 %; Lymphocytes # (auto) 0.92 K/uL (1.20-3.40); Lymphocytes % (auto) 18.1 %; Mean Corpuscular Hemoglobin 29.9 pg (25.0-34.0); Mean Corpuscular Hgb Conc 33.3 g/dL (32.0-36.0); Mean Corpuscular Volume 89.8 fL (80.0-100.0); Mean Platelet Volume 9.1 fL (9.4-12.4); Monocytes # (auto) 0.47 K/uL (0.11-0.59); Monocytes % (auto) 9.3 %; Neutrophils # (auto) 3.46 K/uL (1.40-6.50); Neutrophils % (auto) 68.1 %; Platelet Count 194 K/uL (130-400); RDW Coefficient of Variation 14.5 % (11.5-14.5); RDW Standard Deviation 47.7 fL (36.4-46.3); Red Blood Count 3.94 M/uL (4.20-5.40); White Blood Count 5.08 K/ul (4.8-10.8)
[2025-02-27 07:53] LABS: Calcium 9.2 mg/dl (8.6-10.3); Potassium 4.3 mmol/L (3.5-5.1)
[2025-02-27] MEDS: SPIRONOLACTONE 25 MG TAB PO SCH (07:59)
[2025-02-27] MEDS: BUMETANIDE 1 MG TAB PO SCH (07:59)
[2025-02-27] MEDS: ESCITALOPRAM OXALATE 10 MG TAB PO SCH (07:59)
[2025-02-27] MEDS: PROPRANOLOL HCL 10 MG TAB PO SCH (08:00)
[2025-02-27] MEDS: HEPARIN SOD 5,000 UNIT/0.5 ML VIAL SQ SCH (08:06)
[2025-02-27 08:34] LABS: Estimated Average Glucose 111 mg/dl; Hemoglobin A1C 5.5 % (4.5-5.6)
[2025-02-27] MEDS: PRAMIPEXOLE DIHYDROCHLO 0.5 MG TAB PO SCH ×2 (13:11→17:27)
--- NOTE | 2025-02-27 13:24 | Hospitalist Progress Note ---
Date of Service February 27, 2025 Assessment & Plan (1) Left leg cellulitis: (2) Chronic venous insufficiency: (3) Restless legs syndrome: (4) Idiopathic polyneuropathy: Plan Pt is an 89 yo female with a past med hx of lower leg cellulitis 4x since 2002, chronic venous insufficiency, restless leg syndrome, and depression who presents to the hospital on 02/26 for L leg cellulitis, admitted for failure on outpatient oral antibiotics (doxycycline started 02/23). Venous Doppler was negative for DVT in left lower extremity. #Chronic venous stasis with superimposed L leg cellulitis - refractory to outpatient antibiotics (doxycycline 100 mg BID since 02/23) - Continue ceftriaxone IV - tylenol scheduled for pain, cautious use of NSAIDs given hx repeated AKIs, continue home tramadol for pain - bumex 1 mg daily (usually every other day) - fluid restrict per outpatient nephro's recs; 1500 mL fluids, low salt diet - CXR to evaluate for further fluid overload -noted prominent bilateral bronchovascular shadows, but lungs are clear and well-expanded with no pulmonary infiltrate or pleural effusion #Idiopathic polyneuropathy / Restless leg syndrome - continue home propranolol - continue home gabapentin - A1c 5.5% DVT ppx: heparin Dispo: Anticipate another 48-72 hours inpatient for IV antibiotics Admission and Anticipated Discharge Date Admission Date: February 27, 2025 Subjective Patient seen and examined in bedside chair. She reports tenderness in her LLE. It is still very erythematous and swollen, though slowly improving compared to admission. She denies nausea, vomiting, fever, chills, headache. She notes that she did not get a lot of sleep overnight due to being transferred from the ED to the floor in the middle of the night. We discussed that she will likely require a few doses worth of IV antibiotics and then will transition to oral antibiotics at home. No additional complaints or concerns at this time. Physical Exam 2 Physical Exam: General: No acute distress, nondiaphoretic, well-developed, well-nourished. Cardiac: Regular rate and rhythm without murmurs gallops or rubs. Pulm: Clear to auscultation bilaterally without wheezes, rales or rhonchi. Normal respiratory effort. 95% on room air. Neuro: A&O x3. No focal neurological deficits. Lower extremities: Left lower extremity with beefy red erythema most localized around distal third of LE, does extend to upper third of phillips but reduced from previous marked border. Swelling still significant in LLE. Tender to palpation and increased warmth of LLE. No weeping or wounds noted. Right lower extremity with 1+ pitting edema and chronic venous stasis changes. Results & Data Results & Data Vital Signs (Past 12 Hours) Vital Signs Temp Pulse Pulse Pulse Resp BP BP 02/27/25 11:54 98.1 F 68 15 137/84 02/27/25 07:53 97.3 F L 66 18 156/80 H 02/27/25 07:51 02/27/25 03:10 162/78 H 02/27/25 02:20 97.7 F 72 16 179/94 H 02/27/25 02:20 97.7 F 72 16 179/94 H 02/27/25 01:27 66 17 139/81 Pulse Ox O2 Del Method 02/27/25 11:54 93 Room Air 02/27/25 07:53 95 Room Air 02/27/25 07:51 Room Air 02/27/25 03:10 02/27/25 02:20 98 Room Air 02/27/25 02:20 98 Room Air 02/27/25 01:27 95 Room Air Laboratory Results Reviewed CBC with differential Reviewed CMP, chemistries Diagnostic Findings Reviewed CXR Reviewed venous Doppler study PG Care Time/CCT Total # of Minutes Spent Total Time Spent with Patient: Total time spent is greater than 50% in coordination of care (as documented) at patient's floor/unit and/or counseling patient: Coding Level of Care Code 06636 SUB INP/OBS CARE 2/35MIN Diagnoses Left leg cellulitis L03.116 Chronic venous insufficiency I87.2 Restless legs syndrome G25.81 Idiopathic polyneuropathy G60.9
[2025-02-27] MEDS: traZODone HCL 50 MG TAB PO SCH (20:37)
[2025-02-27] MEDS: GABAPENTIN 100 MG CAP PO SCH (20:37)
[2025-02-28 08:05] LABS: Hemoglobin 13.3 g/dl (12.0-16.0); Mean Corpuscular Hemoglobin 29.9 pg (25.0-34.0); Mean Corpuscular Hgb Conc 33.3 g/dL (32.0-36.0); Mean Corpuscular Volume 89.9 fL (80.0-100.0); Mean Platelet Volume 9.1 fL (9.4-12.4); Platelet Count 231 K/uL (130-400); RDW Coefficient of Variation 14.3 % (11.5-14.5); RDW Standard Deviation 47.6 fL (36.4-46.3); Red Blood Count 4.45 M/uL (4.20-5.40); White Blood Count 5.73 K/ul (4.8-10.8)
[2025-02-28 08:31] LABS: BUN Creatinine Ratio 29.2 (10-20); Calcium 10.2 mg/dl (8.6-10.3); Creatinine Clr Calc Pharmacy 31.9 ml/min
--- NOTE | 2025-02-28 14:18 | Hospitalist Progress Note ---
Date of Service February 28, 2025 Assessment & Plan (1) Left leg cellulitis: (2) Chronic venous insufficiency: (3) Restless legs syndrome: (4) Idiopathic polyneuropathy: Plan Pt is an 89 yo female with a past med hx of lower leg cellulitis 4x since 2002, chronic venous insufficiency, restless leg syndrome, and depression who presents to the hospital on 02/26 for L leg cellulitis, admitted for failure on outpatient oral antibiotics (doxycycline started 02/23). Venous Doppler was negative for DVT in left lower extremity. #Chronic venous stasis with superimposed L leg cellulitis - refractory to outpatient antibiotics (doxycycline 100 mg BID since 02/23) - Continue ceftriaxone IV - tylenol scheduled for pain, cautious use of NSAIDs given hx repeated AKIs, continue home tramadol for pain - bumex 1 mg daily (usually every other day) - fluid restrict per outpatient nephro's recs; 1500 mL fluids, low salt diet - CXR to evaluate for further fluid overload - noted prominent bilateral bronchovascular shadows, but lungs are clear and well-expanded with no pulmonary infiltrate or pleural effusion #Idiopathic polyneuropathy / Restless leg syndrome - continue home propranolol - continue home gabapentin - A1c 5.5% DVT ppx: heparin Dispo: Anticipate discharge home tomorrow 03/01 Updated at bedside Admission and Anticipated Discharge Date Admission Date: February 27, 2025 Supervising Physician Co-Signing Physician Notes MAKENZIE Supervision Note: I did not personally see or examine the patient today, but I verified all mcmhaan points of MAKENZIE Velez's assessment and plan with the following exceptions/additions: None Subjective Patient seen and evaluated in bedside with her present. She reports less tenderness in her LLE today. Her erythema and swelling have improved. She is eager to go home but agreeable to staying tonight for her dose of IV antibiotic with plan to discharge tomorrow. No additional complaints or concerns at this time. Physical Exam Physical Exam: General: No acute distress, nondiaphoretic, well-developed, well-nourished. Cardiac: Regular rate and rhythm without murmurs gallops or rubs. Pulm: Clear to auscultation bilaterally without wheezes, rales or rhonchi. Normal respiratory effort. 95% on room air. Neuro: A&O x3. No focal neurological deficits. Lower extremities: Left lower extremity much improved with beefy red erythema nearly resolved, more chronic venous stasis color changes now. Swelling improved with some pitting edema around ankle remaining. Tenderness has impr natasha and excessive warmth is resolved. Right lower extremity with 1+ pitting edema and chronic venous stasis changes. Results & Data Results & Data Vital Signs (Past 12 Hours) Vital Signs Temp Pulse Resp BP Pulse Ox O2 Del Method 02/28/25 07:49 98.1 F 91 H 16 145/86 H 94 Room Air 02/28/25 07:20 Nasal Cannula Laboratory Results Reviewed CBC Reviewed BMP PG Care Time/CCT Total # of Minutes Spent Total Time Spent with Patient: Total time spent is greater than 50% in coordination of care (as documented) at patient's floor/unit and/or counseling patient: Coding Level of Care Code 37895 SUB INP/OBS CARE 2/35MIN Diagnoses Left leg cellulitis L03.116 Chronic venous insufficiency I87.2 Restless legs syndrome G25.81 Idiopathic polyneuropathy G60.9
[2025-02-28] MEDS: MELATONIN 3 MG TAB PO PRN (20:42)
[2025-03-01 07:38] VITALS: TEMP 97.5
[2025-03-01 07:47] LABS: BUN Creatinine Ratio 27.8 (10-20); Calcium 9.6 mg/dl (8.6-10.3); Creatinine Clr Calc Pharmacy 31.3 ml/min; Potassium 4.5 mmol/L (3.5-5.1)
[2025-03-01 09:20] VITALS: BP 133/86; RESP 18; O2SAT 95
--- NOTE | 2025-03-01 10:36 | Discharge Summary ---
Discharge Summary Date of Service March 01, 2025 Principal Dx & Hospital Course #1 = Principal Diagnosis (1) Left leg cellulitis: (2) Chronic venous insufficiency: (3) Restless legs syndrome: (4) Idiopathic polyneuropathy: Plan Pt is an 89 yo female with a past med hx of lower leg cellulitis 4x since 2002, chronic venous insufficiency, restless leg syndrome, and depression who presents to the hospital on 02/26 for L leg cellulitis, admitted for failure on outpatient oral antibiotics (doxycycline started 02/23). Venous Doppler was negative for DVT in left lower extremity. #Chronic venous stasis with superimposed L leg cellulitis - refractory to outpatient antibiotics (doxycycline 100 mg BID since 02/23) - Ceftriaxone 2 g IV Q24H x 3 doses while inpatient. 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 Resumed home dosing of every other day on discharge - fluid restrict per outpatient nephro's recs; 1500 mL fluids, low salt diet - CXR to evaluate for further fluid overload - noted prominent bilateral bronchovascular shadows, but lungs are clear and well-expanded with no pulmonary infiltrate or pleural effusion #Idiopathic polyneuropathy / Restless leg syndrome - continue home propranolol - continue home gabapentin - A1c 5.5% DVT ppx: heparin Dispo: Discharged home 03/01 Notes For Next Care Provider Medication Changes From Visit Keflex 500 mg QID x 4 additional days Admission HPI Per Admitting Provider Pt is an 89 yo female with a past med hx of lower leg cellulitis 4x since 2002, chronic venous insufficiency, restless leg syndrome, and depression who presents to the hospital on 02/26 for L leg cellulitis, admitted for failure on outpatient oral antibiotics (doxycycline started ). Pt states she noticed on that her L leg was quite swollen, red and painful. She states that she conveniently had a derm appointment then since she had been noticing that both her legs were dry/crusty appearing and had initially meant to see derm for it 3 weeks ago, but her appointment kept getting pushed back. She states because of how her leg looked, they gave her a script of doxycycline, which she took that evening and BID since then including today. She denies issues with her heart that she knows about. No fevers, chills, nausea, vomiting. NO chest pain or SOB. She states that it has not improved at all since so she thought to come in. is present at bedside. He states she has had multiple incidences of cellulitis of her legs, originally dating back to 2002 according to him with a handful of incidences since then. Other than pain in her legs, she is feeling well. No further questions or concerns. Admission Exam Per Admitting Provider General: Alert and oriented, no acute distress, pleasant HEENT: Normocephalic, moist oral mucosa, Cardio: Regular rate and rhythm, Resp: Lungs clear to auscultation b/l, no wheezes or rhonchi, GI: Soft and nontender, nondistended, bowel sounds active Skin: Warm, pink, dry, Extremities: R leg with 1+ edema and slight darkening of the skin, L leg with 3+ edema up to the level of the knee with bright erythema, and increased warmth, no open sores noted, level of erythema marked with surgical marker at time of admission Discharge Exam General: No acute distress, nondiaphoretic, well-developed, well-nourished. Cardiac: Regular rate and rhythm without murmurs gallops or rubs. Pulm: Clear to auscultation bilaterally without wheezes, rales or rhonchi. Normal respiratory effort. 95% on room air. Neuro: A&O x3. No focal neurological deficits. Lower extremities: Left lower extremity much improved with beefy red erythema now resolved, more chronic venous stasis color changes now. Swelling improved with minimal edema around ankle remaining. Tenderness has improved and excessive warmth is resolved. Right lower extremity with 1+ pitting edema and chronic venous stasis changes. Discharge Plan Discharge Items Patient Disposition: Home - Self-Care Reason For Visit: L LEG CELLULITIS Discharge Diagnosis: Left lower extremity cellulitis Condition on Discharge: Fair Activity: Resume your previous activity Non-emergency contact: Primary Care Provider Call non-emergency contact if: you have any medication questions and your symptoms worsen Follow-up/Referrals: Keny Quiroga [Primary Care Provider] - (Follow-up in 1-2 weeks) Diet: Heart Healthy and Low Sodium (2gm) Addtl Attending Provider Instructions: Mrs. Casillas, You were admitted to the hospital due to a cellulitis infection. Cellulitis is an infection of the skin/soft tissues caused by bacteria. Bacteria can enter the body through broken skin; this can happen with a cut, scratch, or insect bite. You have been treated in the hospital with IV antibiotics, and will be discharged with oral antibiotics to continue taking at home. Upon discharge from the hospital: * Take Keflex (oral antibiotic) every 6 hours x 4 additional days. This will complete 7 days worth of antibiotic treatment. Take this antibiotic as directed until it is gone. Take it even if you feel better. It treats the infection and prevents it from returning. Not taking all of the medicine can make future infections harder to treat. * Take Tylenol / Ibuprofen as needed for pain in your legs. * Continue your home medications as prescribed. * Follow-up with your PCP in 1-2 weeks. Please return to the hospital if you experience any of the following: Fever of 100.5 F or higher, trouble or pain with moving the joints above or below the infected area, discharge or pus draining from the infected area, pain that gets worse in or around the infected area, redness that gets worse and around the infected area, shaking chills, worsened swelling of the infected area, persistent vomiting, lightheadedness, dizziness, passing out, shortness of breath, difficulty breathing, or chest pain. It was a pleasure taking care of you while you were in the hospital! Pending Studies at Discharge: No Stand-Alone Forms: My [facility], Smoking Cessation Medications and DC Order Prescriptions: New cephalexin 500 mg capsule 500 mg PO Q6H Qty: 16 0RF Continued aspirin 81 mg tablet,delayed release (DR/EC) 81 mg PO QAM cholecalciferol (vitamin D3) 50 mcg (2,000 unit) capsule 2,000 unit PO QAM cyanocobalamin (vitamin B-12) 500 mcg tablet 500 mcg PO QAM zinc gluconate 50 mg tablet 50 mg PO QAM benzonatate 100 mg capsule 100 mg PO .COMPLEX PRN (Reason: Cough) Rx Instructions: 100 mg orally 1 on even days and half tab on odd days PRN; tramadol 50 mg tablet 50 mg PO TID PRN (Reason: Pain) One-A-Day Trubiotics 2 billion cell capsule 1 cap PO DAILY propranolol 10 mg tablet 10 mg PO BID Qty: 60 2RF gabapentin 100 mg capsule 200 mg PO HS Qty: 60 2RF escitalopram oxalate 10 mg tablet 10 mg PO QAM promethazine 12.5 mg tablet 12.5 mg PO DAILY PRN (Reason: Nausea) spironolactone 50 mg tablet 50 mg PO QAM bumetanide 1 mg tablet 1 mg PO Q OTHER DAY trazodone 50 mg tablet 50 mg PO QPM ondansetron 4 mg tablet,disintegrating 4 mg PO Q6H PRN (Reason: nausea and vomiting) Qty: 14 0RF psyllium husk 0.52 gram Capsule 1.04 g PO QAM pramipexole 0.5 mg tablet 0.5 mg PO UD Rx Instructions: 0.5 mg orally; take 3 tablets at 2pm and take 2 tablets at 6pm PreserVision AREDS 4,296 mcg-226 mg-90 mg Capsule 1 cap PO QAM Discharge Orders: Discharge Order (Routine); Ordered 03/01/25 Ordered By: Anna Velez Admission Data Admit Date/Time: 02/27/25 00:25 Attending Provider: Zoraida Miller Admit Provider: Kika Cao Primary Care Provider: Keny Quiroga Other Providers: Keyshawn Mckeon Other Interventions: Discharge Summary Assessment (RN) Last Done: 03/01/25 10:53 Hospital Stay Data Consultations 02/26/25 23:00 ED Decision to Admit Stat Diagnostic Imagining Performed Venous Doppler Study 02/26/25 22:01 Examination: Doppler venous ultrasound of the lower extremity Comparison: 02/01/2025 Technique: Grayscale evaluation with compression, spectral flow, and color Doppler assessment of the deep venous system of the leg, from the groin to the knee, as well as the lower leg Findings: The external iliac, common femoral, femoral, popliteal, peroneal and anterior and posterior tibial veins demonstrate normal compressibility and blood flow. Subcutaneous edema is noted in the popliteal region and calf. Impression: No evidence for DVT of the left lower extremity Electronically signed by Mike Hernandez 02-26-2025 11:42 PM Chest X-Ray 02/27/25 00:36 EXAM: XR chest 2V PA/lateral CLINICAL HISTORY: edema TECHNIQUE: Radiograph of chest was acquired. COMPARISON: VESNA,12/26/2024 16:05:54 RECYCLING OR RUBBISH COLLECTOR FINDINGS: Prominent bilateral bronchovascular shadows. The lungs are clear and well-expanded with no pulmonary infiltrate or pleural effusion. The cardiomediastinal silhouette is within normal limits. No acute osseous abnormality. 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 IMPRESSION: 1. Prominent bilateral bronchovascular shadows. 2. No interval changes. Electronically signed by Deniz Howell 02-27-2025 03:12 AM Pending Results Patient Have Any Pending Studies at Discharge: No Discharge Instructions Given to Patient (Per Discharging Provider) Mrs. Casillas, Burke were admitted to the hospital due to a cellulitis infection. Cellulitis is an infection of the skin/soft tissues caused by bacteria. Bacteria can enter the body through broken skin; this can happen with a cut, scratch, or insect bite. You have been treated in the hospital with IV antibiotics, and will be discharged with oral antibiotics to continue taking at home. Upon discharge from the hospital: * Take Keflex (oral antibiotic) every 6 hours x 4 additional days. This will complete 7 days worth of antibiotic treatment. Take this antibiotic as directed until it is gone. Take it even if you feel better. It treats the infection and prevents it from returning. Not taking all of the medicine can make future infections harder to treat. * Take Tylenol / Ibuprofen as needed for pain in your legs. * Continue your home medications as prescribed. * Follow-up with your PCP in 1-2 weeks. Please return to the hospital if you experience any of the following: Fever of 100.5 F or higher, trouble or pain with moving the joints above or below the infected area, discharge or pus draining from the infected area, pain that gets worse in or around the infected area, redness that gets worse and around the infected area, shaking chills, worsened swelling of the infected area, persistent vomiting, lightheadedness, dizziness, passing out, shortness of breath, difficulty breathing, or chest pain. It was a pleasure taking care of you while you were in the hospital! Supervising Physician Co-Signing Physician Notes MAKENZIE Supervision Note: I did not personally see or examine the patient today, but I verified all mcmahan points of MAKENZIE Velez's assessment and plan with the following exceptions/additions: None Total Time Total Time Spent Total Time Spent (In Minutes): Greater than 30 minutes spent completing this discharge process including direct patient care, medication reconciliation, documentation, review of labs and images, and coordination of care. Coding Level of Care Code 73779 INP/OBS DISCH >30 MIN Diagnoses Left leg cellulitis L03.116 Chronic venous insufficiency I87.2 Restless legs syndrome G25.81 Idiopathic polyneuropathy G60.9
[2025-03-01 10:54] VITALS: PULSE 68
== END 2025-03-01 11:11 | disposition home or self-care (01) | DRG 603 ==
LOC: ED 20:45 → SUATTDRO 02-27 00:25 → 3N 02-27 00:25

== ENCOUNTER 2025-04-09 14:42 | Inpatient (IN) ==
--- NOTE | 2025-04-09 15:02 | Emergency Department Note ---
Impression & Plan Acute dyspnea, Elevated brain natriuretic peptide (BNP) level, Elevated troponin ED Provider Note HISTORY OF PRESENT ILLNESS: Patient is an 89-year-old female presenting with shortness of breath. Patient reports that she started getting very short of breath yesterday. Reports shortness of breath is worse with any sort of exertion. States that her lower extremities have been more swollen than normal and she took an extra spironolactone yesterday and today but her lower legs are still very swollen. Denies any recent fevers or cough. Denies any chest pain with her shortness of breath. She reports that her upper abdomen feels very swollen and distended. Denies any abdominal pain or vomiting. She does report some intermittent nausea since yesterday. Denies any fevers or chills. Denies any dysuria or hematuria. ROS: as above PHYSICAL EXAM: Constitutional: Patient appears in no acute distress. HENT: Head: Normocephalic and atraumatic. Eyes: EOMI, PERRL Mouth/Throat: Mucous membranes moist. Neck: Trachea midline. Neck supple. Cardiovascular: RRR, No murmurs, rubs or gallops. Intact distal pulses. Pulmonary/Chest: No respiratory distress. Breath sounds clear and equal bilaterally. Breath sounds bilaterally. Abdominal: Abdomen soft, no tenderness, rebound or guarding. Musculoskeletal: No tenderness or deformity noted. +2 pitting edema of bilateral lower extremities extending to proximal tibias Skin: Warm and dry. No rash, erythema, pallor or cyanosis Psychiatric: Appropriate mood and affect for situation. Neurological: Alert and keenly responsive. CN II-XII grossly intact, moving all extremities equally and fully. MDM: - Vitals signs showed pretension - History obtained via patient. History as above. - Chronic conditions affecting care: hypothyroidism; CKD; HTN; chronic venous insufficiency - Differential diagnoses include, but are not limited to: Congestive heart failure; acute coronary syndrome; COPD/asthma exacerbation; pulmonary edema; pulmonary embolism; pneumonia; pneumothorax; viral syndrome - Order placed for continuous cardiac monitoring. At this time, monitor showed rate of 90 bpm with normal sinus rhythm, per my interpretation. - External medical records reviewed. Cardiology visit note dated 12/06/2024 was reviewed. Patient follows in the clinic for hypertension, atrial bigeminy, mitral regurg and dilated aortic root. No changes to medications at that appointment. - EKG image interpreted by myself showed normal sinus rhythm. Rate 96 bpm. QT 392. No acute ischemic changes. Noted to have a right bundle branch block. Significant artifact on baseline. - Laboratory workup interpreted by myself showed normal WBC; normal PT/INR; hyponatremia (Na 131); elevated troponin (14.1); elevated BNP (182) - UA negative for infection - CXR image reviewed by myself is negative for pneumonia, per my interpretation. 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 Also noted to have atelectasis of left lower lobe with multiple subpleural reticular opacities. Noted to have a 3 mm nodule in the right upper lobe. - Patient complaining of significant pain in her bilateral lower extremities from her restless legs. She was ordered her home 1.5 mg PO pramipexol, but continued to have pain. She reports that normally morphine helps with this and was given 4 mg IV morphine. - Discussion was had with vocational case manager about patient's case and need for admission - Hospitalist, Dr. Kendall, consulted for admission [facility] ASSESSMENT AND PLAN: Diagnosis: acute dyspnea; elevated troponin; elevated BNP Plan: admit Past Med/Surg History Problem List (Updated 04/09/25 @ 19:38 by Santa Baker MD) Elevated troponin (Acute) Elevated brain natriuretic peptide (BNP) level (Acute) Acute dyspnea (Acute) Subcutaneous mass of left upper extremity Left leg cellulitis (Acute) Action tremor H/O umbilical hernia repair Venous insufficiency, peripheral Urinary incontinence, mixed Umbilical hernia Tachycardia Spinal stenosis Sciatica Motion sickness Macular degeneration, wet Hypothyroid Hearing aid worn Fatigue CKD stage 3b, GFR 30-44 ml/min (Acute) Arthritis Bilateral edema of lower extremity (Acute) Myofascial pain Lumbar radiculopathy Leg edema (Acute) Tremor Osteoarthritis of left shoulder Encounter for pre-operative examination Chronic venous insufficiency (Acute) Rotator cuff arthropathy of left shoulder Pes anserine bursitis Edema (Acute) to bilateral LE edema L>R following with vascular surgery- scheduled for upcoming Venaseal before TSA Hypertension First degree AV block Chronic 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 Sharp Mildly dilated ascending aorta at 3.9cm per 11/2023 ECHO Eczema of lower extremity Exertional dyspnea (Acute) pt denies any SOB with exertion at this time Frequency of urination and polyuria Chronic Renal angiomyolipoma (Acute) Idiopathic polyneuropathy (Acute) Restless legs syndrome (Acute) Lumbar spinal stenosis (Chronic) Lumbar spondylosis (Chronic) Lumbar radicular pain (Chronic) Sacroiliitis (Chronic) Medical History History of urinary incontinence History of tremor Hx of spinal stenosis Hx of mitral valve insufficiency Lumbar radiculopathy Hearing loss Hx of urinary frequency Hx of fluid overload History of first degree AV block Dilated aortic root Cellulitis of both lower extremities History of hypothyroidism Hx of sciatica Hx of motion sickness Macular degeneration, wet Idiopathic polyneuropathy History of hypertension Exertional dyspnea History of COVID-19 History of colon cancer (2013) CKD stage 3b, GFR 30-44 ml/min Chronic venous insufficiency Restless legs syndrome (RLS) Chronic knee pain 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 Bilateral edema of lower extremity Surgical History H/O umbilical hernia repair (01/13/25) History of bowel resection (2013) Status post reverse total replacement of left shoulder (~01/2024) History of thumb surgery History of cholecystectomy History of cardiac cath (2013) History of tubal ligation (1970) History of knee replacement History of colonoscopy History of cataract surgery (2009) Family History Father CHF (congestive heart failure) Cardiac arrest Hypertension Mother Cardiac arrest Cardiac disorder Hypertension Stroke Sister Hypertension Stroke Aunt Stomach cancer Other No family history of adverse response to anesthesia Denies family history of Ovarian cancer Prostate cancer Myocardial infarction Breast cancer Bleeding disorder Colorectal cancer Social History Smoking Status: Never smoker Second Hand Exposure: No (As a child.); Do You Dip or Chew Tobacco: No; Hx Alcohol Use: Yes Alcohol type: wine Alcohol Intake Frequency: Monthly or Less Hx Substance Use: No Preferred Language: Romansh Communication Ability: Effective Visual Impairment: No Limitations Hearing Ability: Use of Hearing Aid Supervisor [employer] Required: No Beliefs That Will Affect Care: Gnosticist Gnosticist Beliefs: Christian marital status: Current Living Situation: Spouse Current Living Situation Comment: living with current occupational status: retired How many Children do You have: 4 Feels Safe at Home: Yes Childhood Exposure to Second-Hand Smoke: Yes Diet: regular caffeine: Yes (3 cups daily) during the past year weight has: remained stable Dental Care, Regularly: Yes Physical Activity Frequency: Does not Exercise Seatbelt Use: always Sunscreen Use: No Do you think of yourself as: straight/heterosexual Gender Identity: Female Assistive Devices: Cane, Glasses, Hearing Aid - Bilateral and Walker Allergies Allergies Allergy/AdvReac Type Severity Reaction Status Date / Time No Known Allergies Allergy Verified 04/06/25 16:26 Home Meds Home Medications Medication Instructions Recorded Confirmed cyanocobalamin (vitamin B-12) 500 500 mcg PO QAM 05/01/20 04/09/25 mcg tablet psyllium husk 0.52 gram capsule 1.04 g PO QAM 08/18/23 04/09/25 aspirin 81 mg tablet,delayed 81 mg PO QAM 08/15/24 04/09/25 release promethazine 12.5 mg tablet 12.5 mg PO DAILY PRN Nausea 11/23/24 04/09/25 zinc gluconate 50 mg tablet 50 mg PO QAM 11/23/24 04/09/25 pramipexole 0.5 mg tablet 0.5 mg PO UD 11/24/24 04/09/25 trazodone 50 mg tablet 50 mg PO HS 01/04/25 04/09/25 vitamins A,C,P-jexw-kjcnhp 4,296 1 cap PO QAM 01/06/25 04/09/25 mcg-226 mg-90 mg capsule (PreserVision AREDS) Lactobacillus 1 cap PO DAILY 02/22/25 04/09/25 acidophilus-Bifidobac.animalis 2 billion cell capsule (One-A-Day Trubiotics) benzonatate 100 mg capsule 100 mg PO .COMPLEX PRN Cough 02/22/25 04/09/25 tramadol 50 mg tablet 50 mg PO Q8 PRN Pain 02/22/25 04/09/25 spironolactone 50 mg tablet 50 mg PO BID 03/21/25 04/09/25 Previous Rx's Medication Instructions Recorded ondansetron 4 mg disintegrating 4 mg PO Q6H PRN nausea and 09/10/22 tablet vomiting #14 tabs gabapentin 100 mg capsule 200 mg (2 x 100 mg) PO HS #60 caps 02/22/25 propranolol 10 mg tablet 10 mg PO BID #60 tabs 02/22/25 diclofenac sodium 1 % topical gel 2 g topical QID PRN pain, moderate 03/07/25 #100 grams Results & Data (ED) Vital Signs Vital Signs - 24 hr 04/09/25 14:44 04/09/25 14:51 04/09/25 14:51 Temperature 36.2 C L Temperature Source Temporal Artery Scan Pulse Rate 85 Pulse Rate [Apical] Respiratory Rate 22 Respiratory Effort / Characteristics Short of Breath Spontaneous Short of Breath Respiratory Depth Normal Normal Respiratory Pattern Regular Blood Pressure 158/90 H Blood Pressure [Right Arm] Blood Pressure Mean 112 Blood Pressure Mean [Right Arm] Pulse Oximetry 97 Oxygen Delivery Method Room Air Room Air Room Air Sepsis Recent Fever Within 48 Hours No Sepsis New/Unexplained Change in Mental Status N/A Sepsis Action Taken by Nursing No Action Required 04/09/25 14:51 04/09/25 14:51 04/09/25 15:24 Temperature Temperature Source Pulse Rate 84 Pulse Rate [Apical] 84 Respiratory Rate 24 Respiratory Effort / Characteristics Spontaneous SOB on Exertion Respiratory Depth Normal Respiratory Pattern Blood Pressure Blood Pressure [Right Arm] 163/104 H Blood Pressure Mean Blood Pressure Mean [Right Arm] 123 Pulse Oximetry 98 98 Oxygen Delivery Method Room Air Room Air Sepsis Recent Fever Within 48 Hours Sepsis New/Unexplained Change in Mental Status Sepsis Action Taken by Nursing 04/09/25 16:23 04/09/25 17:49 04/09/25 17:54 Temperature Temperature Source Pulse Rate Pulse Rate [Apical] 84 91 H Respiratory Rate 19 24 Respiratory Effort / Characteristics Non-Labored Spontaneous SOB on Exertion Non-Labored Spontaneous Respiratory Depth Normal Normal Respiratory Pattern Regular Blood Pressure Blood Pressure [Right Arm] 174/102 H 171/123 H 156/116 H Blood Pressure Mean Blood Pressure Mean [Right Arm] 126 139 129 Pulse Oximetry 98 96 Oxygen Delivery Method Room Air Room Air Sepsis Recent Fever Within 48 Hours Sepsis New/Unexplained Change in Mental Status Sepsis Action Taken by Nursing 04/09/25 19:00 04/09/25 19:15 04/09/25 20:00 Temperature Temperature Source Pulse Rate 89 Pulse Rate [Apical] 87 87 Respiratory Rate 15 16 Respiratory Effort / Characteristics Non-Labored Spontaneous Non-Labored Spontaneous Respiratory Depth Normal Normal Respiratory Pattern Regular Blood Pressure Blood Pressure [Right Arm] 167/108 H 123/99 Blood Pressure Mean Blood Pressure Mean [Right Arm] 127 107 Pulse Oximetry 97 98 Oxygen Delivery Method Room Air Room Air Sepsis Recent Fever Within 48 Hours Sepsis New/Unexplained Change in Mental Status Sepsis Action Taken by Nursing Laboratory Data 04/09/25 15:16 04/09/25 15:16 Lab Results 04/09/25 04/09/25 04/09/25 Range/Units 15:08 15:16 16:37 WBC 7.09 (4.8-10.8) K/ul RBC 4.20 (4.20-5.40) M/uL Hgb 12.5 (12.0-16.0) g/dl Hct 37.1 (37.0-47.0) % MCV 88.3 (80.0-100.0) fL MCH 29.8 (25.0-34.0) pg MCHC 33.7 (32.0-36.0) g/dL RDW Std Deviation 46.9 H (36.4-46.3) fL RDW Coeff of Xavier 14.5 (11.5-14.5) % Plt Count 272 (130-400) K/uL MPV 9.2 L (9.4-12.4) fL Immature Gran % (Auto) 0.3 % Neut % (Auto) 72.5 % Lymph % (Auto) 16.1 % Cedar % (Auto) 6.9 % Eos % (Auto) 3.5 % Baso % (Auto) 0.7 % Neut # (Auto) 5.14 (1.40-6.50) K/uL Lymph # (Auto) 1.14 L (1.20-3.40) K/uL Cedar # (Auto) 0.49 (0.11-0.59) K/uL Eos # (Auto) 0.25 (0.00-0.50) K/uL Baso # (Auto) 0.05 (0.00-0.20) K/uL Immature Gran # (Auto) 0.02 (0.01-0.20) K/uL PT 10.4 (9.0-12.0) Seconds INR 1.0 (0.9-1.1) Sodium 131 L (136-145) mmol/L Potassium 4.9 (3.5-5.1) mmol/L Chloride 100 (98-107) mmol/L Carbon Dioxide 26 (21-32) mmol/L Anion Gap 5 (3-11) BUN 35 H (6-23) mg/dl Creatinine 1.04 (0.6-1.2) mg/dl Est Cr Clr Drug Dosing 35.4 ml/min eGFR 51.38 BUN/Creatinine Ratio 33.7 H (10-20) Glucose 88 (70-99(Fasting)) mg/dl Calcium 9.8 (8.6-10.3) mg/dl Magnesium 2.0 (1.7-2.4) mg/dl Total Bilirubin 0.5 (0.2-1.0) mg/dl AST 17 (13-39) U/L ALT 15 (7-52) U/L Alkaline Phosphatase 69 (34-104) U/L Troponin I High Sens 14.1 H (0-14) pg/ml B-Natriuretic Peptide 182 H (0-100) pg/ml Total Protein 6.9 (6.0-8.3) gm/dl Albumin 3.8 (3.4-5.0) gm/dl Globulin 3.1 (2.5-4.0) gm/dl Albumin/Globulin Ratio 1.2 (0.9-2) Urine Color Yellow Urine Appearance Clear (Clear) Urine pH 6.0 (4.5-7.5) Ur Specific [place] 1.009 (1.000-1.030) Urine Protein Negative (Negative) Urine Glucose (UA) Negative (Negative) Urine Ketones Negative (Negative) Urine Blood Negative (Negative) Urine Nitrite Negative (Negative) Urine Bilirubin Negative (Negative) Urine Urobilinogen Negative (Negative) Ur Leukocyte Esterase 2+ H (Negative) Urine WBC (Auto) 0-5 (0-5) /hpf Urine RBC (Auto) 0-2 (0-2) /hpf U Hyaline Cast (Auto) 0-2 (0-2) /lpf U Epithel Cells (Auto) 0-2 (0-2) /hpf Urine Bacteria (Auto) None Seen (None Seen) Urine Comment SARS-CoV-2 (PCR) NEGATIVE (Negative) Influenza Type A (PCR) Negative (Neg) Influenza Type B (PCR) Negative (Neg) RSV (RT-PCR) Negative (Neg) Administered Medications Discontinued Medications Ioversol (Optiray 320 125ml) 119 ml IV ONCE ONE Stop: 04/09/25 17:41 Last Admin: 04/09/25 17:40 Dose: 119 ml Documented By: MANUELA Morphine Sulfate (Morphine Sulfate 4 Mg/Ml 1 Ml Carp\Vial) 4 mg IV NOW STA Stop: 04/09/25 19:36 Last Admin: 04/09/25 19:51 Dose: 4 mg Documented By: HERNANDEZ Pramipexole Dihydrochloride (Pramipexole Dihydrochlo 0.5 Mg Tab) 1.5 mg PO NOW STA Stop: 04/09/25 17:26 Last Admin: 04/09/25 17:48 Dose: 1.5 mg Documented By: CIERA Imaging Data Radiologist's Impression: Chest X-Ray 04/09/25 14:51 EXAM: X-ray chest one-view portable CLINICAL HISTORY: Sepsis PRIORS: 03/23/2025 TECHNIQUE: Frontal view chest FINDINGS: Bilateral arthroplasties of the shoulder in the [id number]. The chest is well-expanded. No large airspace consolidation or pleural effusion. Cardiac silhouette enlarged. No pneumothorax. Trachea is patent. Osseous structures demonstrate no acute abnormality. No radiopaque foreign body. IMPRESSION: No plain film evidence of an acute cardiopulmonary process. Electronically signed by Page Roman 04-09-2025 3:41 PM Chest CTA 04/09/25 17:02 EXAM: CT angio chest dissec wo/w con CLINICAL HISTORY: Shortness of breath; history of dilated aortic root. TECHNIQUE: CT angiography of the chest was performed with 119ml Opitray-320mg/ml intravenous contrast with the following protocol: axial images with reconstructed coronal and sagittal images. Non-contrast images were initially acquired, followed by contrast-enhanced images in arterial and venous phases. Bolus tracking was employed to optimize arterial phase imaging. One of these 3D techniques was utilized: Maximum Intensity Pixel (MIP), 3D Reconstructed Images, Volume Rendered Images, Surface Shaded Rendering. One of the following dose reduction techniques was utilized for this exam: Automated exposure control, adjustment of the mA and/or kV according to patient size, and use of iterative reconstruction. COMPARISON: The same-day chest x-ray 04/09/2025 14:25:00 [employer]AL [employer] MACHINISTS was reviewed. FINDINGS: Aorta and Great Vessels: Ascending Aorta: Dilated measuring 5.2 cm in diameter. No dissection or significant atherosclerosis. Aortic Arch: Normal in caliber, no aneurysm, dissection. Mild atherosclerosis. Descending Aorta: Normal in caliber, no aneurysm, dissection. Mild atherosclerosis. Pulmonary Arteries: The main pulmonary artery and its branches are patent. No evidence of pulmonary embolism or significant stenosis. Heart: Cardiac Chambers: Cardiomegaly. Pericardium: No pericardial effusion or thickening. Lungs and Pleura: An atelectasis in the left lower lobe. A 3 mm nodule in the anterior segment of the right upper lobe. Multiple areas of subpleural reticular opacities, some with interspersed bronchiectatic changes. Lungs are clear without evidence of consolidation, collapse, or focal lesions. No pleural effusion or pleural thickening. Mediastinum: No mediastinal mass or abnormal lymphadenopathy. Normal appearance of the trachea and central bronchi. Hilar Structures: Hilar structures are normal without enlargement. Chest Wall: No mass lesions or abnormalities in the chest wall. Vascular Structures: Superior Vena Cava: Patent without evidence of stenosis or thrombus. Inferior Vena Cava: Patent without evidence of stenosis or thrombus. Bones and Soft Tissues: No fractures, lytic, or blastic lesions of the visualized bony structures. Soft tissues are unremarkable. Bilateral intact shoulder joint prosthesis. Incidental note of multiple hypo and hyperdense nodules in both kidneys, representing simple and hemorrhagic/proteinaceous cysts. IMPRESSION: 1. 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 No dissection. 2. Cardiomegaly. 3. An atelectasis in the left lower lobe. Multiple areas of subpleural reticular opacities, some with interspersed bronchiectatic changes, likely post-inflammatory sequelae. 4. A 3 mm nodule in the right upper lobe. No routine follow-up if low risk, and optional 12-month follow-up if high risk as per Fleishcner Society guidelines. Electronically signed by Luke Sanchez 04-09-2025 7:29 PM Discharge Plan Visit Data Chief Complaint: Shortness of Breath/Dyspnea Stated Complaint: SHORTNESS OF BREATH, EXTENDED STOMACH ED Provider: Santa Baker Discharge Problem: Acute dyspnea, Elevated brain natriuretic peptide (BNP) level, Elevated troponin Condition: Fair Forms Stand Alone Forms: My [facility] Prescriptions Prescriptions: No Action aspirin 81 mg tablet,delayed release (DR/EC) 81 mg PO QAM cyanocobalamin (vitamin B-12) 500 mcg tablet 500 mcg PO QAM zinc gluconate 50 mg tablet 50 mg PO QAM benzonatate 100 mg capsule 100 mg PO .COMPLEX PRN (Reason: Cough) Rx Instructions: 100 mg orally 1 on even days and half tab on odd days PRN; tramadol 50 mg tablet 50 mg PO Q8 PRN (Reason: Pain) One-A-Day Trubiotics 2 billion cell capsule 1 cap PO DAILY propranolol 10 mg tablet 10 mg PO BID Qty: 60 2RF gabapentin 100 mg capsule 200 mg PO HS Qty: 60 2RF promethazine 12.5 mg tablet 12.5 mg PO DAILY PRN (Reason: Nausea) spironolactone 50 mg tablet 50 mg PO BID diclofenac sodium 1 % gel 2 g topical QID PRN (Reason: pain, moderate) Qty: 100 2RF trazodone 50 mg tablet 50 mg PO HS ondansetron 4 mg tablet,disintegrating 4 mg PO Q6H PRN (Reason: nausea and vomiting) Qty: 14 0RF psyllium husk 0.52 gram Capsule 1.04 g PO QAM pramipexole 0.5 mg tablet 0.5 mg PO UD Rx Instructions: 0.5 mg orally; take 3 tablets at 2pm and take 2 tablets at 6pm PreserVision AREDS 4,296 mcg-226 mg-90 mg Capsule 1 cap PO QAM Referrals Referrals: Deniz Hollingsworth DO [Primary Care Provider] -
--- NOTE | 2025-04-09 15:41 | XRay Report ---
EXAM: X-ray chest one-view portable CLINICAL HISTORY: Sepsis PRIORS: 03/23/2025 TECHNIQUE: Frontal view chest FINDINGS: Bilateral arthroplasties of the shoulder in the [id number]. The chest is well-expanded. No large airspace consolidation or pleural effusion. Cardiac silhouette enlarged. No pneumothorax. Trachea is patent. Osseous structures demonstrate no acute abnormality. No radiopaque foreign body. IMPRESSION: No plain film evidence of an acute cardiopulmonary process. Electronically signed by Page Roman 04-09-2025 3:41 PM
[2025-04-09 15:53] LABS: Basophils # (auto) 0.05 K/uL (0.00-0.20); Basophils % (auto) 0.7 %; Eosinophils # (auto) 0.25 K/uL (0.00-0.50); Eosinophils % (auto) 3.5 %; Hematocrit (blood only) 37.1 % (37.0-47.0); Hemoglobin 12.5 g/dl (12.0-16.0); Immature Granulocytes # (auto) 0.02 K/uL (0.01-0.20); Immature Granulocytes % (auto) 0.3 %; Lymphocytes # (auto) 1.14 K/uL (1.20-3.40); Lymphocytes % (auto) 16.1 %; Mean Corpuscular Hemoglobin 29.8 pg (25.0-34.0); Mean Corpuscular Hgb Conc 33.7 g/dL (32.0-36.0); Mean Corpuscular Volume 88.3 fL (80.0-100.0); Mean Platelet Volume 9.2 fL (9.4-12.4); Monocytes # (auto) 0.49 K/uL (0.11-0.59); Monocytes % (auto) 6.9 %; Neutrophils # (auto) 5.14 K/uL (1.40-6.50); Neutrophils % (auto) 72.5 %; Platelet Count 272 K/uL (130-400); RDW Coefficient of Variation 14.5 % (11.5-14.5); RDW Standard Deviation 46.9 fL (36.4-46.3); White Blood Count 7.09 K/ul (4.8-10.8)
[2025-04-09 15:53] LABS: Influenza A virus by PCR Negative (Neg); Influenza B virus by PCR Negative (Neg); RSV by PCR Negative (Neg); SARS CoV2 RNA(COVID-19) Ceph NEGATIVE (Negative)
[2025-04-09 16:16] LABS: Albumin Globulin Ratio 1.2 (0.9-2); BUN Creatinine Ratio 33.7 (10-20); Bilirubin,Total 0.5 mg/dl (0.2-1.0); Calcium 9.8 mg/dl (8.6-10.3); Creatinine Clr Calc Pharmacy 35.4 ml/min; Globulin 3.1 gm/dl (2.5-4.0); Potassium 4.9 mmol/L (3.5-5.1); Total Protein 6.9 gm/dl (6.0-8.3)
[2025-04-09 16:22] LABS: Troponin I High Sensitivity 14.1 pg/ml (0-14)
[2025-04-09 16:26] LABS: Prothrombin Time 10.4 Seconds (9.0-12.0)
[2025-04-09 16:55] LABS: Appearance Urine Clear (Clear); Bacteria Urine Automated None Seen (None Seen); Bilirubin Urine Negative (Negative); Blood Urine Negative (Negative); Cast Urine Automated 0-2 /lpf (0-2); Color Urine Yellow; Epithelial Cell Urine Auto 0-2 /hpf (0-2); Glucose Urine UA Negative (Negative); Ketones Urine Negative (Negative); Leukocyte Esterase Urine 2+ (Negative); Nitrite Urine Negative (Negative); Protein Urine Negative (Negative); RBC Urine Automated 0-2 /hpf (0-2); Specific Gravity Urine 1.009 (1.000-1.030); Urobilinogen Urine Negative (Negative); WBC Urine Automated 0-5 /hpf (0-5)
[2025-04-09] MEDS: OPTIRAY 320 125ml IV ONE (17:40)
[2025-04-09] MEDS: PRAMIPEXOLE DIHYDROCHLO 0.5 MG TAB PO STA (17:48)
--- NOTE | 2025-04-09 19:31 | CT Scan Report ---
EXAM: CT angio chest dissec wo/w con CLINICAL HISTORY: Shortness of breath; history of dilated aortic root. TECHNIQUE: CT angiography of the chest was performed with 119ml Opitray-320mg/ml intravenous contrast with the following protocol: axial images with reconstructed coronal and sagittal images. Non-contrast images were initially acquired, followed by contrast-enhanced images in arterial and venous phases. Bolus tracking was employed to optimize arterial phase imaging. One of these 3D techniques was utilized: Maximum Intensity Pixel (MIP), 3D Reconstructed Images, Volume Rendered Images, Surface Shaded Rendering. One of the following dose reduction techniques was utilized for this exam: Automated exposure control, adjustment of the mA and/or kV according to patient size, and use of iterative reconstruction. 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 FINDINGS: Aorta and Great Vessels: Ascending Aorta: Dilated measuring 5.2 cm in diameter. No dissection or significant atherosclerosis. Aortic Arch: Normal in caliber, no aneurysm, dissection. Mild atherosclerosis. Descending Aorta: Normal in caliber, no aneurysm, dissection. Mild atherosclerosis. Pulmonary Arteries: The main pulmonary artery and its branches are patent. No evidence of pulmonary embolism or significant stenosis. Heart: Cardiac Chambers: Cardiomegaly. Pericardium: No pericardial effusion or thickening. Lungs and Pleura: An atelectasis in the left lower lobe. A 3 mm nodule in the anterior segment of the right upper lobe. Multiple areas of subpleural reticular opacities, some with interspersed bronchiectatic changes. Lungs are clear without evidence of consolidation, collapse, or focal lesions. No pleural effusion or pleural thickening. Mediastinum: No mediastinal mass or abnormal lymphadenopathy. Normal appearance of the trachea and central bronchi. Hilar Structures: Hilar structures are normal without enlargement. Chest Wall: No mass lesions or abnormalities in the chest wall. Vascular Structures: Superior Vena Cava: Patent without evidence of stenosis or thrombus. Inferior Vena Cava: Patent without evidence of stenosis or thrombus. Bones and Soft Tissues: No fractures, lytic, or blastic lesions of the visualized bony structures. Soft tissues are unremarkable. Bilateral intact shoulder joint prosthesis. Incidental note of multiple hypo and hyperdense nodules in both kidneys, representing simple and hemorrhagic/proteinaceous cysts. IMPRESSION: 1. 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 No dissection. 2. Cardiomegaly. 3. An atelectasis in the left lower lobe. Multiple areas of subpleural reticular opacities, some with interspersed bronchiectatic changes, likely post-inflammatory sequelae. 4. A 3 mm nodule in the right upper lobe. No routine follow-up if low risk, and optional 12-month follow-up if high risk as per Fleishcner Society guidelines. Electronically signed by Luke Sanchez 04-09-2025 7:29 PM
[2025-04-09] MEDS: MoRPHine SULFATE 4 MG/ML 1 ML CARP\\VIAL IV STA (19:51)
--- NOTE | 2025-04-09 20:32 | History & Physical Report ---
Date of Service April 09, 2025 Assessment & Plan (1) Acute dyspnea: (2) Dilated aortic root: (3) Cellulitis: (4) Hypothyroid: (5) Hypertension: History of Present Illness Chief Complaint: Shortness of breath, edema, fatigue Primary Care Provider: Deniz Hollignsworth DO Amina Casillas is an 89-year-old female with history of hypothyroidism, hypertension, restless leg syndrome and mitral regurgitation as well as dilated aortic root on surveillance presenting with several days of progressive bilateral lower extremity edema, shortness of breath, orthopnea and fatigue. Patient reports that she has become very short of breath over the last several days. She thought this was secondary to putting on fluids so she did take an extra dose of spironolactone today. She reports increased urine output with this medication change. She denies fever, chills, chest pain, palpitations, weight gain Denies abdominal pain but does have some bloating. Denies nausea, vomiting, diarrhea. She does report some blood in her stools noted today in the ER. No recent illness or sick contacts No medication changes In the emergency room she is hypertensive otherwise stable ER course: Mirapex Morphine Allergies Allergy/AdvReac Type Severity Reaction Status Date / Time No Known Allergies Allergy Verified 04/06/25 16:26 Home Medications Medication Instructions Recorded Confirmed Type cyanocobalamin (vitamin B-12) 500 500 mcg PO QAM 05/01/20 04/09/25 History mcg tablet ondansetron 4 mg disintegrating 4 mg PO Q6H PRN nausea and 09/10/22 04/09/25 Rx tablet vomiting #14 tabs psyllium husk 0.52 gram capsule 1.04 g PO QAM 08/18/23 04/09/25 History aspirin 81 mg tablet,delayed 81 mg PO QAM 08/15/24 04/09/25 History release promethazine 12.5 mg tablet 12.5 mg PO DAILY PRN Nausea 11/23/24 04/09/25 History zinc gluconate 50 mg tablet 50 mg PO QAM 11/23/24 04/09/25 History pramipexole 0.5 mg tablet 0.5 mg PO UD 11/24/24 04/09/25 History trazodone 50 mg tablet 50 mg PO HS 01/04/25 04/09/25 History vitamins A,C,B-eduq-redgpa 4,296 1 cap PO QAM 01/06/25 04/09/25 History mcg-226 mg-90 mg capsule (PreserVision AREDS) Lactobacillus 1 cap PO DAILY 02/22/25 04/09/25 History acidophilus-Bifidobac.animalis 2 billion cell capsule (One-A-Day Trubiotics) benzonatate 100 mg capsule 100 mg PO .COMPLEX PRN Cough 02/22/25 04/09/25 History gabapentin 100 mg capsule 200 mg (2 x 100 mg) PO HS #60 caps 02/22/25 04/09/25 Rx propranolol 10 mg tablet 10 mg PO BID #60 tabs 02/22/25 04/09/25 Rx tramadol 50 mg tablet 50 mg PO Q8 PRN Pain 02/22/25 04/09/25 History diclofenac sodium 1 % topical gel 2 g topical QID PRN pain, moderate 03/07/25 04/09/25 Rx #100 grams spironolactone 50 mg tablet 50 mg PO BID 03/21/25 04/09/25 History Past Med/Surg History Problem List Elevated troponin (Acute) Elevated brain natriuretic peptide (BNP) level (Acute) Acute dyspnea (Acute) Subcutaneous mass of left upper extremity Left leg cellulitis (Acute) Action tremor H/O umbilical hernia repair Venous insufficiency, peripheral Urinary incontinence, mixed Umbilical hernia Tachycardia Spinal stenosis Sciatica Motion sickness Macular degeneration, wet Hypothyroid Hearing aid worn Fatigue CKD stage 3b, GFR 30-44 ml/min (Acute) Arthritis Bilateral edema of lower extremity (Acute) Myofascial pain Lumbar radiculopathy Leg edema (Acute) Tremor Osteoarthritis of left shoulder Encounter for pre-operative examination Chronic venous insufficiency (Acute) Rotator cuff arthropathy of left shoulder Pes anserine bursitis Edema (Acute) to bilateral LE edema L>R following with vascular surgery- scheduled for upcoming Venaseal before TSA Hypertension First degree AV block Chronic 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 Sharp Mildly dilated ascending aorta at 3.9cm per 11/2023 ECHO Cellulitis of both lower extremities hx, pt states "unsure if she actually has any currently but doesn't think so" History of hypothyroidism Hx of sciatica Hx of motion sickness Macular degeneration, wet Idiopathic polyneuropathy left big toe per pt. History of hypertension Exertional dyspnea pt denies any SOB with exertion at this time History of COVID-2023 per records, pt unaware History of colon cancer (2013) sx only CKD stage 3b, GFR 30-44 ml/min f/u garth or nephrology Chronic venous insufficiency Restless legs syndrome (RLS) Chronic knee pain 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 Bilateral edema of lower extremity wears compression stockings Surgical History H/O umbilical hernia repair (01/13/25) Open Umbilical Hernia Repair - Jake Shook DO History of bowel resection (2013) Status post reverse total replacement of left shoulder (~01/2024) History of thumb surgery right History of cholecystectomy History of cardiac cath (2013) pt states she can't remember this, per Dr. Sharp record no stents History of tubal ligation (1970) History of knee replacement bilateral--left and right knee History of colonoscopy History of cataract surgery (2009) bilateral Family History Father CHF (congestive heart failure) Cardiac arrest Hypertension Mother Cardiac arrest Cardiac disorder Hypertension Stroke Sister Hypertension Stroke Aunt Stomach cancer Other No family history of adverse response to anesthesia Denies family history of Ovarian cancer Prostate cancer Myocardial infarction Breast cancer Bleeding disorder Colorectal cancer Social History Smoking Status: Never smoker Second Hand Exposure: No; Do You Dip or Chew Tobacco: No; Tobacco Cessation Education Requested by Patient: No Hx Alcohol Use: No Hx Substance Use: No Preferred Language: Kuwaiti Communication Ability: Effective Visual Impairment: No Limitations Hearing Ability: Use of Hearing Aid Bundle Wrapper Required: No Beliefs That Will Affect Care: None marital status: Current Living Situation: Spouse Current Living Situation Comment: living with current occupational status: retired How many Children do You have: 4 Other Information That Helps Us Care for You: No Feels Safe at Home: Yes Safety Concerns: Feels Safe At This Time Childhood Exposure to Second-Hand Smoke: Yes Diet: regular caffeine: Yes (3 cups daily) during the past year weight has: remained stable Dental Care, Regularly: Yes Physical Activity Frequency: Does not Exercise Seatbelt Use: always Sunscreen Use: No Do you think of yourself as: straight/heterosexual Gender Identity: Female Assistive Devices: Glasses and Walker Review of Systems Review of Systems: All systems reviewed & are unremarkable except as noted in HPI & below Physical Exam Physical Exam: General: patient resting comfortably, NAD, non-toxic in appearance, AA&O x 4 Skin: Bilateral lower extremities with ruborous skin changes left greater than right, warmth to the touch, no crepitus or bullae HEENT: NC/AT, PERRL, EOMI, anicteric sclera, conjunctiva without injection, external ear normal to inspection and nontender, nares patent, moist mucus membranes, dentition intact, no oropharyngeal lesions, neck supple, trachea midline, no LAD, no thyromegaly, no JVD Heart: +S1/S2, irregular, bigeminy noted on pump runner which is appreciate during auscultation as well, 3/6 systolic ejection murmur at left sternal border, no rubs or gallops Lungs: equal air entry bilaterally, no rales/rhonchi/wheezes Abd: +BS, soft, NT/ND, no masses/organomegaly/ascites Ext: warm, 2+ pulses in UE/LE bilaterally, no clubbing/cyanosis, erythematous skin changes to bilateral lower extremities as noted above, trace pitting edema Neuro: nonfocal, patient AA&O x 4, speech intact, no facial droop, moving all extremities on command with equal strength 5/5 Results & Data Results & Data Vital Signs (Past 12 Hours) Vital Signs Temp Pulse Pulse Resp BP BP Pulse Ox 04/09/25 20:00 87 16 123/99 98 04/09/25 19:15 89 04/09/25 19:00 87 15 167/108 H 97 04/09/25 17:54 156/116 H 04/09/25 17:49 91 H 24 171/123 H 96 04/09/25 16:23 84 19 174/102 H 98 04/09/25 15:24 84 04/09/25 14:51 98 04/09/25 14:51 84 24 163/104 H 98 04/09/25 14:51 04/09/25 14:51 04/09/25 14:44 36.2 C L 85 22 158/90 H 97 O2 Del Method 04/09/25 20:00 Room Air 04/09/25 19:15 04/09/25 19:00 Room Air 04/09/25 17:54 04/09/25 17:49 Room Air 04/09/25 16:23 Room Air 04/09/25 15:24 04/09/25 14:51 Room Air 04/09/25 14:51 Room Air 04/09/25 14:51 Room Air 04/09/25 14:51 Room Air 04/09/25 14:44 Room Air Laboratory Results Laboratory Results WBC 7.09 K/ul (4.8-10.8) 04/09/25 15:16 RBC 4.20 M/uL (4.20-5.40) 04/09/25 15:16 Hgb 12.5 g/dl (12.0-16.0) 04/09/25 15:16 Hct 37.1 % (37.0-47.0) 04/09/25 15:16 MCV 88.3 fL (80.0-100.0) 04/09/25 15:16 MCH 29.8 pg (25.0-34.0) 04/09/25 15:16 MCHC 33.7 g/dL (32.0-36.0) 04/09/25 15:16 RDW Std Deviation 46.9 fL (36.4-46.3) H 04/09/25 15:16 RDW Coeff of Xavier 14.5 % (11.5-14.5) 04/09/25 15:16 Plt Count 272 K/uL (130-400) 04/09/25 15:16 MPV 9.2 fL (9.4-12.4) L 04/09/25 15:16 Immature Gran % (Auto) 0.3 % 04/09/25 15:16 Neut % (Auto) 72.5 % 04/09/25 15:16 Lymph % (Auto) 16.1 % 04/09/25 15:16 Sheridan % (Auto) 6.9 % 04/09/25 15:16 Eos % (Auto) 3.5 % 04/09/25 15:16 Baso % (Auto) 0.7 % 04/09/25 15:16 Neut # (Auto) 5.14 K/uL (1.40-6.50) 04/09/25 15:16 Lymph # (Auto) 1.14 K/uL (1.20-3.40) L 04/09/25 15:16 Sheridan # (Auto) 0.49 K/uL (0.11-0.59) 04/09/25 15:16 Eos # (Auto) 0.25 K/uL (0.00-0.50) 04/09/25 15:16 Baso # (Auto) 0.05 K/uL (0.00-0.20) 04/09/25 15:16 Immature Gran # (Auto) 0.02 K/uL (0.01-0.20) 04/09/25 15:16 PT 10.4 Seconds (9.0-12.0) 04/09/25 15:16 INR 1.0 (0.9-1.1) 04/09/25 15:16 Sodium 131 mmol/L (136-145) L 04/09/25 15:16 Potassium 4.9 mmol/L (3.5-5.1) 04/09/25 15:16 Chloride 100 mmol/L (98-107) 04/09/25 15:16 Carbon Dioxide 26 mmol/L (21-32) 04/09/25 15:16 Anion Gap 5 (3-11) 04/09/25 15:16 BUN 35 mg/dl (6-23) H 04/09/25 15:16 Creatinine 1.04 mg/dl (0.6-1.2) 04/09/25 15:16 Est Cr Clr Drug Dosing 35.4 ml/min 04/09/25 15:16 eGFR 51.38 04/09/25 15:16 BUN/Creatinine Ratio 33.7 (10-20) H 04/09/25 15:16 Glucose 88 mg/dl (70-99(Fasting)) 04/09/25 15:16 Calcium 9.8 mg/dl (8.6-10.3) 04/09/25 15:16 Magnesium 2.0 mg/dl (1.7-2.4) 04/09/25 15:16 Total Bilirubin 0.5 mg/dl (0.2-1.0) 04/09/25 15:16 AST 17 U/L (13-39) 04/09/25 15:16 ALT 15 U/L (7-52) 04/09/25 15:16 Alkaline Phosphatase 69 U/L (34-104) 04/09/25 15:16 Troponin I High Sens 14.1 pg/ml (0-14) H 04/09/25 15:16 B-Natriuretic Peptide 182 pg/ml (0-100) H 04/09/25 15:16 Total Protein 6.9 gm/dl (6.0-8.3) 04/09/25 15:16 Albumin 3.8 gm/dl (3.4-5.0) 04/09/25 15:16 Globulin 3.1 gm/dl (2.5-4.0) 04/09/25 15:16 Albumin/Globulin Ratio 1.2 (0.9-2) 04/09/25 15:16 Urine Color Yellow 04/09/25 16:37 Urine Appearance Clear (Clear) 04/09/25 16:37 Urine pH 6.0 (4.5-7.5) 04/09/25 16:37 Ur Specific [place] 1.009 (1.000-1.030) 04/09/25 16:37 Urine Protein Negative (Negative) 04/09/25 16:37 Urine Glucose (UA) Negative (Negative) 04/09/25 16:37 Urine Ketones Negative (Negative) 04/09/25 16:37 Urine Blood Negative (Negative) 04/09/25 16:37 Urine Nitrite Negative (Negative) 04/09/25 16:37 Urine Bilirubin Negative (Negative) 04/09/25 16:37 Urine Urobilinogen Negative (Negative) 04/09/25 16:37 Ur Leukocyte Esterase 2+ (Negative) H 04/09/25 16:37 Urine WBC (Auto) 0-5 /hpf (0-5) 04/09/25 16:37 Urine RBC (Auto) 0-2 /hpf (0-2) 04/09/25 16:37 U Hyaline Cast (Auto) 0-2 /lpf (0-2) 04/09/25 16:37 U Epithel Cells (Auto) 0-2 /hpf (0-2) 04/09/25 16:37 Urine Bacteria (Auto) None Seen (None Seen) 04/09/25 16:37 Urine Comment 04/09/25 16:37 SARS-CoV-2 (PCR) NEGATIVE (Negative) 04/09/25 15:08 Influenza Type A (PCR) Negative (Neg) 04/09/25 15:08 Influenza Type B (PCR) Negative (Neg) 04/09/25 15:08 RSV (RT-PCR) Negative (Neg) 04/09/25 15:08 Impressions Chest X-Ray 04/09/25 14:51 EXAM: X-ray chest one-view portable CLINICAL HISTORY: Sepsis PRIORS: 03/23/2025 TECHNIQUE: Frontal view chest FINDINGS: Bilateral arthroplasties of the shoulder in the [id number]. The chest is well-expanded. No large airspace consolidation or pleural effusion. Cardiac silhouette enlarged. No pneumothorax. Trachea is patent. Osseous structures demonstrate no acute abnormality. No radiopaque foreign body. IMPRESSION: No plain film evidence of an acute cardiopulmonary process. Electronically signed by Page Roman 04-09-2025 3:41 PM Chest CTA 04/09/25 17:02 EXAM: CT angio chest dissec wo/w con CLINICAL HISTORY: Shortness of breath; history of dilated aortic root. TECHNIQUE: CT angiography of the chest was performed with 119ml Opitray-320mg/ml intravenous contrast with the following protocol: axial images with reconstructed coronal and sagittal images. Non-contrast images were initially acquired, followed by contrast-enhanced images in arterial and venous phases. Bolus tracking was employed to optimize arterial phase imaging. One of these 3D techniques was utilized: Maximum Intensity Pixel (MIP), 3D Reconstructed Images, Volume Rendered Images, Surface Shaded Rendering. One of the following dose reduction techniques was utilized for this exam: Automated exposure control, adjustment of the mA and/or kV according to patient size, and use of iterative reconstruction. COMPARISON: The same-day chest x-ray 04/09/2025 14:25:00 BUSINESS CONTINUITY MANAGEMENT DIRECTOR was reviewed. FINDINGS: Aorta and Great Vessels: Ascending Aorta: Dilated measuring 5.2 cm in diameter. No dissection or significant atherosclerosis. Aortic Arch: Normal in caliber, no aneurysm, dissection. Mild atherosclerosis. Descending Aorta: Normal in caliber, no aneurysm, dissection. Mild atherosclerosis. Pulmonary Arteries: The main pulmonary artery and its branches are patent. No evidence of pulmonary embolism or significant stenosis. Heart: Cardiac Chambers: Cardiomegaly. Pericardium: No pericardial effusion or thickening. Lungs and Pleura: An atelectasis in the left lower lobe. A 3 mm nodule in the anterior segment of the right upper lobe. Multiple areas of subpleural reticular opacities, some with interspersed bronchiectatic changes. Lungs are clear without evidence of consolidation, collapse, or focal lesions. No pleural effusion or pleural thickening. Mediastinum: No mediastinal mass or abnormal lymphadenopathy. Normal appearance of the trachea and central bronchi. Hilar Structures: Hilar structures are normal without enlargement. Chest Wall: No mass lesions or abnormalities in the chest wall. Vascular Structures: Superior Vena Cava: Patent without evidence of stenosis or thrombus. Inferior Vena Cava: Patent without evidence of stenosis or thrombus. Bones and Soft Tissues: No fractures, lytic, or blastic lesions of the visualized bony structures. Soft tissues are unremarkable. Bilateral intact shoulder joint prosthesis. Incidental note of multiple hypo and hyperdense nodules in both kidneys, representing simple and hemorrhagic/proteinaceous cysts. IMPRESSION: 1. 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 No dissection. 2. Cardiomegaly. 3. An atelectasis in the left lower lobe. Multiple areas of subpleural reticular opacities, some with interspersed bronchiectatic changes, likely post-inflammatory sequelae. 4. A 3 mm nodule in the right upper lobe. No routine follow-up if low risk, and optional 12-month follow-up if high risk as per Fleishcner Society guidelines. Electronically signed by Luke Sanchez 04-09-2025 7:29 PM ECG Additional Comments: EKG with wide QRS with PVCs, 96 bpm, right bundle branch block, QRS = 136, QTc equals 495 Prior EKGs with right bundle branch block Supervising Physician Co-Signing Physician Notes 89-year-old female with history of hypothyroidism, hypertension, dilated aortic root on surveillance presenting with 2 days of progressive dyspnea, orthopnea, edema. Patient is hypertensive in the ER. Stable respiratory status with adequate oxygenation on room air. #Acute dyspneapossibly secondary to some volume overload although patient does not appear to be overtly overloaded on exam. Rhythm strip reveals atrial bigeminy. She has had documentation of this in the past. Uncertain if this is causing her current symptoms of dyspnea. Lasix 20 mg IV x 1 dose now then 20 mg IV twice daily 17 Hold spironolactone due to borderline high potassium Monitor strict intake and output Monitor daily weights Repeat 2D echo in the morning BMP in the morning to assess electrolytes and renal function #Dilated aortic rootpatient follows with cardiology for this issue. Her last Echocardiogram was performed on 11/24/2024 which showed a normal LV systolic function with EF of 65 to 70%. Moderate LVH. Mildly dilated ascending aorta at 4.2 cm. CTA performed today reveals dilated aortic root measuring 5.2 cm without dissection or significant atherosclerosis. Uncertain if this demonstrates significant growth of her aortic root dilation versus different modalities of imaging? Checking 2D echo as above Tight control blood pressure as tolerated Pending results of echo would consider possible cardiology consultation. Of note, patient would be a very poor candidate for surgical repair given her advanced age. #Cellulitispatient with redness and warmth of bilateral lower extremities left more so than right. She is afebrile and hemodynamically stable on exam with no sepsis. She does have chronic bilateral lower extremity edema in the left leg more than the right. Ceftriaxone 2 g IV daily Monitor redness for improvement #TSHwithin normal limits in November at 3.768. no thyroid medication on her current list of medications Check TSH with reflex to T4, replete as needed #Hypertensionelevated blood pressure in the ER Diuresis with Lasix as above should decrease blood pressure some Continue propranolol 10 mg p.o. twice daily Holding spironolactone due to borderline high blood pressure #Restless leg syndrome Continue Mirapex #Report of blood in stool noted today in the ER Patient is hemodynamically stable. Hemoglobin is stable as well at 12.5. Patient does however have an elevated BUN which is chronic Check Hemoccult stool PG Care Time/CCT Total # of Minutes Spent Total Time Spent with Patient: Total time spent is greater than 50% in coordination of care (as documented) at patient's floor/unit and/or counseling patient: Coding Level of Care Code 84831 INT INP/OBS CARE 3/75MIN Diagnoses Acute dyspnea R06.00 Dilated aortic root I77.810 Cellulitis of left lower extremity L03.116 Laterality: left Site of cellulitis: extremity Site of cellulitis of extremity: lower extremity Hypothyroid E03.9 Hypertension I10 (3) Cellulitis Laterality: left Site of cellulitis: extremity Site of cellulitis of extremity: lower extremity Qualified Code(s): L03.116 - Cellulitis of left lower limb
[2025-04-09] MEDS ORDERED: ACETAMINOPHEN 325 MG TAB PO PRN (22:06)
[2025-04-09] MEDS ORDERED: DICLOFENAC SOD 1% GEL 100 GM TUBE EXT PRN (22:06)
[2025-04-09] MEDS ORDERED: traMADol HCL 50 MG TABLET PO PRN (22:06)
[2025-04-09] MEDS: ONDANSETRON INJ 2 MG/ML 2 ML VIAL IV PRN (22:18)
[2025-04-09] MEDS: FUROSEMIDE INJ 20 MG/2 ML VIAL IV ONE (22:22)
[2025-04-09] MEDS: GABAPENTIN 100 MG CAP PO SCH (22:31)
[2025-04-09] MEDS: traZODone HCL 50 MG TAB PO SCH (22:31)
[2025-04-09] MEDS: PROPRANOLOL HCL 10 MG TAB PO SCH (22:31)
[2025-04-09] MEDS: cefTRIAXone SODIUM 2,000 MG/50 ML BAG IV SCH (22:36)
[2025-04-10] MEDS: BENZONATATE 100 MG CAPSULE PO PRN (01:36)
[2025-04-10 08:54] LABS: Hematocrit (blood only) 40.8 % (37.0-47.0); Hemoglobin 13.3 g/dl (12.0-16.0); Mean Corpuscular Hemoglobin 28.8 pg (25.0-34.0); Mean Corpuscular Hgb Conc 32.6 g/dL (32.0-36.0); Mean Corpuscular Volume 88.3 fL (80.0-100.0); Mean Platelet Volume 8.9 fL (9.4-12.4); Platelet Count 239 K/uL (130-400); RDW Coefficient of Variation 14.6 % (11.5-14.5); RDW Standard Deviation 47.1 fL (36.4-46.3); Red Blood Count 4.62 M/uL (4.20-5.40); White Blood Count 6.49 K/ul (4.8-10.8)
[2025-04-10] MEDS: ASPIRIN 81 MG ECTAB PO SCH (08:57)
[2025-04-10] MEDS: FUROSEMIDE INJ 20 MG/2 ML VIAL IV SCH (08:57)
[2025-04-10 09:09] LABS: BUN Creatinine Ratio 29.5 (10-20); Calcium 9.6 mg/dl (8.6-10.3); Creatinine Clr Calc Pharmacy 37.9 ml/min; Potassium 4.6 mmol/L (3.5-5.1)
--- NOTE | 2025-04-10 09:09 | Hospitalist Progress Note ---
Date of Service April 10, 2025 Assessment & Plan (1) Acute dyspnea: Plan: -given IV lasix -96% on RA (2) Dilated aortic root: Plan: -f/u Echo (3) Cellulitis: Plan: -con't rocephin (4) Hypothyroid: Plan: -TSH pending (5) Hypertension: Plan: Continue propranolol 10 mg p.o. twice daily Admission and Anticipated Discharge Date Admission Date: April 09, 2025 Supervising Physician Co-Signing Physician Notes 89-year-old female with history of hypothyroidism, hypertension, dilated aortic root on surveillance presenting with 2 days of progressive dyspnea, orthopnea, edema. Patient is hypertensive in the ER. Stable respiratory status with adequate oxygenation on room air. Plan to d/c 04/11 Subjective Pt feeling better no events overnight seen resting in bed. Review of Systems Review of Systems: CONST: Negative for fever, body aches and chills. HENT: Negative for neck pain/stiffness, headache, congestion, sore throat, swelling. EYES: Negative for discharge/pain or vision changes. RESP: Negative for cough/hemoptysis and shortness of breath. CV: Negative chest pain, difficulty breathing, palpitations. ABD: Negative pain, nausea, vomiting. : Negative increase frequency, dysuria, blood in urine or stool. MUSC: Negative for muscle aches, edema. SKIN: Negative rash, lesions/sores. NEURO: Negative headache, dizziness, weakness. Physical Exam Physical Exam: GENERAL APPEARANCE NAD, activity normal for age, well developed/ well nourished, no cyanosis, pallor, or diaphoresis. EYES lids/conjunctiva normal. EARS/NOSE/THROAT Mucous membranes moist, nares normal, lips/teeth normal uvula midline without oral pharyngeal erythema, exudate or swelling TMs normal bilaterally. No lymphangitis/lymphedema. HEAD/NECK normocephalic atraumatic, no facial trauma, neck is supple. RESPIRATORY respiratory effort normal, speaks in full sentences, no tripod position, no accessory muscle use. Lungs clear to auscultation without rhonchi, wheezes, rales CARDIAC Regular rate and rhythm, no edema. ABDOMINAL Soft, ND/NT. No evidence of fluid wave. No pulsatile masses on exam, rebound tenderness, Laird sign or pain over Mcburney's point. MUSCLES/EXTREMITIES No abnormal range of motion, no swelling. SKIN Warm, pink and dry. No rashes, dermatoses, petechiae or lesions. NEUROLOGICAL Speech is clear and appropriate. Normal level of consciousness. Gait and coordination are normal. 5/5 strength in all extremities. PSYCH Normal mood and affect. Judgement/competence is appropriate Results & Data Results & Data Vital Signs (Past 12 Hours) Vital Signs Temp Pulse Pulse Pulse Resp BP BP 04/10/25 07:55 101 H 04/10/25 07:21 36.4 C L 77 18 119/80 04/10/25 04:05 36.7 C 76 18 114/68 04/09/25 22:20 68 158/87 H 04/09/25 22:08 04/09/25 22:08 36.5 C 64 20 176/104 H 04/09/25 22:07 94 H 04/09/25 21:42 92 H 18 145/95 H Pulse Ox O2 Del Method 04/10/25 07:55 04/10/25 07:21 96 Room Air 04/10/25 04:05 96 Room Air 04/09/25 22:20 04/09/25 22:08 Room Air 04/09/25 22:08 97 Room Air 04/09/25 22:07 04/09/25 21:42 94 Room Air PG Care Time/CCT Total # of Minutes Spent Total Time Spent with Patient: Total time spent is greater than 50% in coordination of care (as documented) at patient's floor/unit and/or counseling patient: Coding Level of Care Code 06719 SUB INP/OBS CARE 2/35MIN Diagnoses Acute dyspnea R06.00 Dilated aortic root I77.810 Cellulitis of left lower extremity L03.116 Laterality: left Site of cellulitis: extremity Site of cellulitis of extremity: lower extremity Hypothyroid E03.9 Hypertension I10 (3) Cellulitis Laterality: left Site of cellulitis: extremity Site of cellulitis of extremity: lower extremity Qualified Code(s): L03.116 - Cellulitis of left lower limb
--- NOTE | 2025-04-10 09:23 | Electrocardiogram Report ---
Test Reason : Blood Pressure : */* mmHG Vent. Rate : 96 BPM Atrial Rate : * BPM P-R Int : * ms QRS Dur : 136 ms QT Int : 392 ms P-R-T Axes : * 48 -33 degrees QTcB Int : 495 ms Normal sinus rhythm with 1st degree A-V block Right bundle branch block Inferior infarct , age undetermined T wave abnormality, consider lateral ischemia Abnormal ECG When compared with ECG of 23-Mar-2025 18:34, No significant change Confirmed by Reji Álvarez ([id number]) on 04/10/2025 9:22:47 AM Referred By: REFERRED SELF Confirmed By: Reji Álvarez
[2025-04-10 09:24] LABS: Thyroid Stimulating Hormone 5.556 uIu/ml (0.300-4.500)
--- NOTE | 2025-04-10 10:04 | XCELERA ---
[id number] \\[id number]
[2025-04-10 11:20] VITALS: O2SAT 95
[2025-04-10] MEDS: NYSTATIN POWDER 15GM BTL EXT SCH (13:40)
[2025-04-10] MEDS: PRAMIPEXOLE DIHYDROCHLO 0.5 MG TAB PO SCH (13:41)
[2025-04-10] MEDS ORDERED: MAGNESIUM HYDROXIDE SUSP 30 ML UDC PO PRN (14:05)
[2025-04-10 15:22] VITALS: BP 132/88; RESP 17; TEMP 98.1
--- NOTE | 2025-04-10 15:48 | Discharge Summary ---
Discharge Summary Date of Service April 10, 2025 Principal Dx & Hospital Course #1 = Principal Diagnosis (1) Acute dyspnea: -given IV lasix -96% on RA (2) Dilated aortic root: -f/u Echo (3) Cellulitis: -con't rocephin (4) Hypothyroid: -TSH pending (5) Hypertension: Continue propranolol 10 mg p.o. twice daily Admission HPI Per Admitting Provider Amina Casillas is an 89-year-old female with history of hypothyroidism, hypertension, restless leg syndrome and mitral regurgitation as well as dilated aortic root on surveillance presenting with several days of progressive bilateral lower extremity edema, shortness of breath, orthopnea and fatigue. Patient reports that she has become very short of breath over the last several days. She thought this was secondary to putting on fluids so she did take an extra dose of spironolactone today. She reports increased urine output with this medication change. She denies fever, chills, chest pain, palpitations, weight gain Denies abdominal pain but does have some bloating. Denies nausea, vomiting, diarrhea. She does report some blood in her stools noted today in the ER. No recent illness or sick contacts No medication changes In the emergency room she is hypertensive otherwise stable ER course: Mirapex Morphine Discharge Exam GENERAL APPEARANCE NAD, activity normal for age, well developed/ well nourished, no cyanosis, pallor, or diaphoresis. EYES lids/conjunctiva normal. EARS/NOSE/THROAT Mucous membranes moist, nares normal, lips/teeth normal uvula midline without oral pharyngeal erythema, exudate or swelling TMs normal bilaterally. No lymphangitis/lymphedema. HEAD/NECK normocephalic atraumatic, no facial trauma, neck is supple. RESPIRATORY respiratory effort normal, speaks in full sentences, no tripod position, no accessory muscle use. Lungs clear to auscultation without rhonchi, wheezes, rales CARDIAC Regular rate and rhythm, no edema. ABDOMINAL Soft, ND/NT. No evidence of fluid wave. No pulsatile masses on exam, rebound tenderness, Laird sign or pain over Mcburney's point. MUSCLES/EXTREMITIES No abnormal range of motion, no swelling. SKIN Warm, pink and dry. No rashes, dermatoses, petechiae or lesions. NEUROLOGICAL Speech is clear and appropriate. Normal level of consciousness. Gait and coordination are normal. 5/5 strength in all extremities. PSYCH Normal mood and affect. Judgement/competence is appropriate Discharge Plan Discharge Items Reason For Visit: SHORTNESS OF BREATH, EDEMA Discharge Diagnosis: LE cellulitis, edema Condition on Discharge: Fair Activity: Resume your previous activity Non-emergency contact: Primary Care Provider Call non-emergency contact if: you have any medication questions Follow-up/Referrals: Deniz Hollingsworth DO [Primary Care Provider] - Diet: Regular Addtl Attending Provider Instructions: Follow up with PMD in 2 weeks Pending Studies at Discharge: No Stand-Alone Forms: [facility] [place] [employer], Smoking Cessation Medications and DC Order Prescriptions: New furosemide [Lasix] 20 mg tablet 20 mg PO BID Qty: 14 0RF cephalexin 500 mg capsule 500 mg PO BID 7 Days Qty: 14 0RF Continued aspirin 81 mg tablet,delayed release (DR/EC) 81 mg PO QAM cyanocobalamin (vitamin B-12) 500 mcg tablet 500 mcg PO QAM zinc gluconate 50 mg tablet 50 mg PO QAM benzonatate 100 mg capsule 100 mg PO .COMPLEX PRN (Reason: Cough) Rx Instructions: 100 mg orally 1 on even days and half tab on odd days PRN; tramadol 50 mg tablet 50 mg PO Q8 PRN (Reason: Pain) One-A-Day Trubiotics 2 billion cell capsule 1 cap PO DAILY propranolol 10 mg tablet 10 mg PO BID Qty: 60 2RF gabapentin 100 mg capsule 200 mg PO HS Qty: 60 2RF promethazine 12.5 mg tablet 12.5 mg PO DAILY PRN (Reason: Nausea) spironolactone 50 mg tablet 50 mg PO BID diclofenac sodium 1 % gel 2 g topical QID PRN (Reason: pain, moderate) Qty: 100 2RF trazodone 50 mg tablet 50 mg PO HS ondansetron 4 mg tablet,disintegrating 4 mg PO Q6H PRN (Reason: nausea and vomiting) Qty: 14 0RF psyllium husk 0.52 gram Capsule 1.04 g PO QAM pramipexole 0.5 mg tablet 0.5 mg PO UD Rx Instructions: 0.5 mg orally; take 3 tablets at 2pm and take 2 tablets at 6pm PreserVision AREDS 4,296 mcg-226 mg-90 mg Capsule 1 cap PO QAM Admission Data Admit Date/Time: 04/09/25 20:32 Attending Provider: Dean Sullivan Admit Provider: Bren Kendall Primary Care Provider: Deniz Hollingsworth Other Providers: Bren Kendall Hospital Stay Data Consultations 04/09/25 19:44 ED Decision to Admit Stat Diagnostic Imagining Performed 04/09/25 17:02 CTA chest dissec wo/w con [CT angio chest dissec wo/w con] Stat Pending Results Patient Have Any Pending Studies at Discharge: No Discharge Instructions Given to Patient (Per Discharging Provider) Follow up with PMD in 2 weeks Total Time Total Time Spent Total Time Spent (In Minutes): 50 Coding Level of Care Code 05848 INP/OBS DISCH >30 MIN Diagnoses Acute dyspnea R06.00 Dilated aortic root I77.810 Cellulitis of left lower extremity L03.116 Laterality: left Site of cellulitis: extremity Site of cellulitis of extremity: lower extremity Hypothyroid E03.9 Hypertension I10
[2025-04-10 17:42] VITALS: PULSE 76
[2025-04-10] MEDS ORDERED: PRAMIPEXOLE DIHYDROCHLO 0.5 MG TAB PO SCH (18:00)
== END 2025-04-10 19:43 | disposition home or self-care (01) | DRG 204 ==
LOC: ED 14:42 → SUATTDRO 20:32 → 2N 20:32